=== PATIENT | male | born 1950 | race Two or more races ===

== ENCOUNTER 2020-03-22 14:55 | Outpatient (REF) | payer MEDICARE, SELFPAY ==
[2020-03-22 15:43] LABS: Hematocrit 35.9 % (42-52); Hemoglobin 11.6 g/dl (14.0-18.0); Mean Corpuscular HGB Conc 32.3 g/dl (31.0-36.0); Mean Corpuscular Hemoglobin 28.5 pg (27.0-33.0); Mean Corpuscular Volume 88.2 fL (80-98); Mean Platelet Volume 8.6 fL (9.4-12.4); Platelet Count 267 X10*3/uL (160-400); Red Blood Count 4.07 X10*6/uL (4.60-5.80); White Blood Count 5.9 X10*3/uL (4.8-10.8)
[2020-03-22 16:27] LABS: Ferritin 29 ng/mL (20-250)
== END 2020-03-22 14:56 | disposition home or self-care (01) ==
LOC: HO.LAB 14:55
PROVIDERS: PCP Internal Medicine; Visit Provider Internal Medicine Gastroenterology
DX: C16.3 Malignant neoplasm of pyloric antrum (principal)
CPT/HCPCS: 36415; 82728; 85027

== ENCOUNTER → 2020-03-27 12:51 | Outpatient (BNV) | payer MEDICARE, SELFPAY | PROVIDERS: PCP Internal Medicine; Visit Provider Internal Medicine | DX: C16.9 Malignant neoplasm of stomach, unspecified (principal); Z90.3 Acquired absence of stomach [part of] | CPT/HCPCS: 99213; 99214; G2211 ==

== ENCOUNTER → 2020-03-29 13:06 | Outpatient (BNVA) | payer MEDICARE, SELFPAY | PROVIDERS: Visit Provider Internal Medicine Gastroenterology | DX: C16.9 Malignant neoplasm of stomach, unspecified (principal); K29.70 Gastritis, unspecified, without bleeding; E53.8 Deficiency of other specified B group vitamins; D50.9 Iron deficiency anemia, unspecified | CPT/HCPCS: 99214 ==

== ENCOUNTER 2020-04-11 08:53 | Outpatient (REF) | payer MEDICARE, SELFPAY | END 2020-04-11 08:54 | disposition home or self-care (01) | LOC: HO.LAB 08:53 | PROVIDERS: Visit Provider Internal Medicine | DX: Z20.828 Contact with and (suspected) exposure to other viral communicable diseases (principal) | CPT/HCPCS: C9803; U0003 ==

== ENCOUNTER → 2020-04-19 10:53 | Outpatient (BNVA) | payer MEDICARE, SELFPAY | PROVIDERS: PCP Internal Medicine; Referring Provider Internal Medicine; Visit Provider Internal Medicine Gastroenterology | DX: Z76.89 Persons encountering health services in other specified circumstances (principal) ==

== ENCOUNTER → 2020-06-11 10:40 | Outpatient (BNVA) | payer MEDICARE, SELFPAY | PROVIDERS: PCP Internal Medicine; Visit Provider Internal Medicine Gastroenterology | DX: Z76.89 Persons encountering health services in other specified circumstances (principal) | CPT/HCPCS: Q3014 ==

== ENCOUNTER 2020-06-14 08:36 | Day surgery (SDC) | payer MEDICARE, SELFPAY ==
--- NOTE | 2020-06-12 14:46 | P.CONAN_ITS ---
Documented by User: Shelia Trevino 06/12/20 14:49 HPI - Anesthesia Eval Consult details Narrative: 69yo M for Upper Endoscopy Gastric ca s/p gastrectomy 09/2019 [facility] Past Medical History Medical History Depression Gastric adenocarcinoma Gastritis Gastrointestinal stromal tumor (GIST) (~2014) History of colon polyps History of gastrectomy Hydrocele Hypercholesterolemia Hypertension Renal calculi Vitamin B12 deficiency Family History Family History Father No problems noted. Mother History of cancer Surgical History Surgical History History of back surgery (~2016) History of colonoscopy (~07/22/19) History of esophagogastroduodenoscopy (EGD) (07/22/19) History of hernia repair Social History Social History Alcohol intake: current Alcohol intake frequency: does not drink Smoking Status: Never smoker Use of substances other than those prescribed or required for medical reasons: No Advance Directives: No Advance Directives Information Provided: Yes Meds Allergies Allergy/AdvReac Type Severity Reaction Status Date / Time No Known Allergies Allergy Verified 06/14/20 13:12 [No Known Allergies*] Home Medications Medication Instructions Recorded Confirmed Type amlodipine [Norvasc] 10 mg PO DAILY 03/27/20 06/14/20 History atorvastatin 20 mg PO BEDTIME 03/27/20 06/14/20 History calcium polycarbophil 1,250 mg PO DAILY 03/27/20 06/14/20 History cyanocobalamin (vitamin B-12) 1,000 mcg PO DAILY 03/27/20 06/14/20 History ferrous sulfate 324 mg PO BID 03/27/20 06/14/20 History Exam Exam Date and Time: June 12, 2020 163 Assessment and Plan Assessment Anesthesia Assessment: Chart Reviewed Documented by User: Shante Gonzalez 06/14/20 14:05 PMFSH Past Medical History Medical History Depression Gastric adenocarcinoma Gastritis Gastrointestinal stromal tumor (GIST) (~2014) History of colon polyps History of gastrectomy Hydrocele Hypercholesterolemia Hypertension Renal calculi Vitamin B12 deficiency Family History Family History Father No problems noted. Mother History of cancer Surgical History Surgical History History of back surgery (~2016) History of colonoscopy (~07/22/19) History of esophagogastroduodenoscopy (EGD) (07/22/19) History of hernia repair Social History Social History Alcohol intake: current Alcohol intake frequency: does not drink Smoking Status: Never smoker Use of substances other than those prescribed or required for medical reasons: No Advance Directives: No Advance Directives Information Provided: Yes Meds Allergies Allergy/AdvReac Type Severity Reaction Status Date / Time No Known Allergies Allergy Verified 06/14/20 13:12 [No Known Allergies*] Home Medications Medication Instructions Recorded Confirmed Type amlodipine [Norvasc] 10 mg PO DAILY 03/27/20 06/14/20 History atorvastatin 20 mg PO BEDTIME 03/27/20 06/14/20 History calcium polycarbophil 1,250 mg PO DAILY 03/27/20 06/14/20 History cyanocobalamin (vitamin B-12) 1,000 mcg PO DAILY 03/27/20 06/14/20 History ferrous sulfate 324 mg PO BID 03/27/20 06/14/20 History Exam Airway Mallampati Class: II TM Dist: >3cm Neck ROM: Full Assessment and Plan Assessment Anesthesia Assessment: Anesthesia Plan Discussed and Chart Reviewed Final Anesthetic Review NPO: Yes ASA Class: III Final Preanesthetic Review: No Changes in Pt Med Stat, Meds/Allgs Chart Reviewed, Consent Obtained/Reviewed and Anes Risks/Benef Reviewed Patient Risk: Intermediate Procedure Risk: Low Assessment/Block/Sedation in SS: Assess/Block/Sedation-SS Anesthetic Plan Anesthetic Plan: MAC: Disposition: Standard PACU
[2020-06-14 13:14] VITALS: BMI 28.8
[2020-06-14 13:19] VITALS: BP 154/102; PULSE 70; RESP 18; TEMP 36.8; O2SAT 97
--- NOTE | 2020-06-14 14:09 | P.BOP_ITS ---
Brief Operative Note Surgeon: Trenton Mueller MD
--- NOTE | 2020-06-14 14:09 | P.OP_ITS ---
Operative Note Operative Note Date of Service: 06/14/20 Narrative: Pre-op diagnosis: FU of Gastric cancer Post-op diagnosis: other (Gastritis, status post partial gastrectomy) Procedure: FLEXIBLE TRANSORAL UPPER GASTROINTESTINAL ENDOSCOPY WITH BIOPSY Consent: Indications for the procedure and potential complications of bleeding, perforation, reaction to medications and missed diagnosis were discussed with the patient and informed consent was obtained. Instrument: Olympus GIF H 190 mid size upper endoscope Monitoring: Vital signs and clinical assessment, continuous EKG monitoring, Pulse oximetry, Carbon Dioxide monitoring and blood pressure monitoring were done throughout the procedure. Procedure: The patient was placed in the left lateral decubitis position and pre-procedure medications were administered and a bite block was placed. The endoscope was inserted into the mouth and advanced under direct vision to the third part of duodenum. A careful inspection was made as the upper endoscope was withdrawn including a retroflexed examination of the proximal stomach; Findings and interventions are described below. Findings: Larynx: Normal Esophagus: GE junction at 38 cms. No esophagitis or Silva s. Stomach: Diffuse gastric erythema - biopsies were obtained from the gastric body. Normal appearing Gastro-jejunal anastomosis at 50 cms - biopsies were obtained. Grade 2 flap valve on retroflexed examination of the cardia Jejunum: Normal small bowel mucosa. Intervention: Biopsies as noted above Impression and Post Procedure Diagnosis: Endoscopy Findings: STOMACH: Diffuse gastric erythema - biopsies were obtained from the gastric body. Normal appearing gary en Y anastomosis at 50 cms - biopsies were obtained from the anastomosis. Grade 2 flap valve on retroflexed examination of the cardia Plan: Await pathology results Patient has an appointment on 06/21/20 in the GI Clinic with Trenton Mueller M.D.- . Above findings were reviewed with the patient. Surgeon: Trenton Mueller MD Anesthesia: MAC (Luzmaria Carbajal CRNA) Estimated blood loss (mL): 0 Pathology: other (A. Anastomosis, B. Gastric body) Condition: stable Disposition: PACU
--- NOTE | 2020-06-14 14:09 | PM.OP ---
Brief Operative Note Surgeon: Trenton Mueller MD
--- NOTE | 2020-06-14 14:09 | MHC.SHP ---
Pre-Procedural Eval Section A The patient is an INPATIENT: No Changes since office visit: Yes Patient answered all questions; No Cold of Flu in the past 2 weeks, No New Medical Problems and No Changes in Medication The History & Physical has been completed within 30 days and I have reviewed it.: Yes Section B Chief Complaint: Gastritis Allergies: Allergies Allergy/AdvReac Type Severity Reaction Status Date / Time No Known Allergies Allergy Verified 06/14/20 13:12 [No Known Allergies*] Plan I have reviewed the history and physical and performed a pertinent physical examination on my patient. No changes have occurred unless specified.
[2020-06-14 14:46] VITALS: BP 153/97; PULSE 74; RESP 14; TEMP 36.4; O2SAT 98
[2020-06-14 15:01] VITALS: BP 162/98; PULSE 68; RESP 17; TEMP 36.6; O2SAT 97
--- NOTE | 2020-06-14 15:25 | HO.POSTANES ---
Post Anesthesia Evaluation Post Anesthesia Evaluation Vital Signs: Vital Signs Temp Pulse Resp BP Pulse Ox 06/14/20 15:01 97.8 F 71 17 162/98 H 97 06/14/20 14:46 97.5 F 74 14 153/97 H 98 06/14/20 13:19 98.3 F 70 18 154/102 H 97 Anesthesia: Monitored Mental Status: Awake Pain Control: Satisfactory Nausea/Vomiting: None Hydration: Adequate Anesthesia-Related Issues: No Anes. Related Issues
== END 2020-06-14 15:26 | disposition home or self-care (01) ==
PROVIDERS: PCP Internal Medicine; Visit Provider Internal Medicine Gastroenterology
PROC: 0DJ08ZZ Inspection of Upper Intestinal Tract, Via Natural or Artificial Opening Endoscopic (ICD-10-PCS; CPT 43235; principal; 2020-06-14 14:00)
DX: K29.50 Unspecified chronic gastritis without bleeding (principal); Z85.028 Personal history of other malignant neoplasm of stomach; Z90.3 Acquired absence of stomach [part of]; Z98.0 Intestinal bypass and anastomosis status; I10 Essential (primary) hypertension; E53.8 Deficiency of other specified B group vitamins
CPT/HCPCS: 43239; 88305; 88342

== ENCOUNTER → 2020-06-21 09:54 | Outpatient (BNVA) | payer MEDICARE, SELFPAY | PROVIDERS: PCP Internal Medicine; Visit Provider Internal Medicine Gastroenterology | DX: D50.9 Iron deficiency anemia, unspecified (principal); C16.9 Malignant neoplasm of stomach, unspecified; E53.8 Deficiency of other specified B group vitamins; Z86.010 Personal history of colon polyps | CPT/HCPCS: 99212 ==

== ENCOUNTER 2020-09-19 10:16 | Outpatient (REF) | payer MEDICARE, SELFPAY | END 2020-09-19 10:17 | disposition home or self-care (01) | LOC: HO.LAB 10:16 | PROVIDERS: Visit Provider Internal Medicine | DX: Z20.822 Contact with and (suspected) exposure to COVID-19 (principal) | CPT/HCPCS: C9803; U0003; U0005 ==

== ENCOUNTER → 2021-02-14 08:07 | Outpatient (BNVA) | payer MEDICARE, SELFPAY | PROVIDERS: PCP Internal Medicine; Referring Provider Internal Medicine; Visit Provider Internal Medicine Gastroenterology | DX: K29.70 Gastritis, unspecified, without bleeding (principal); D50.9 Iron deficiency anemia, unspecified; K59.00 Constipation, unspecified; C18.9 Malignant neoplasm of colon, unspecified; E11.9 Type 2 diabetes mellitus without complications; I10 Essential (primary) hypertension; E78.00 Pure hypercholesterolemia, unspecified; E53.8 Deficiency of other specified B group vitamins; N20.0 Calculus of kidney; N43.3 Hydrocele, unspecified; Z87.891 Personal history of nicotine dependence; Z90.3 Acquired absence of stomach [part of]; Z86.010 Personal history of colon polyps; Z79.84 Long term (current) use of oral hypoglycemic drugs; Z79.899 Other long term (current) drug therapy | CPT/HCPCS: 99212 ==

== ENCOUNTER 2021-03-29 07:54 | Day surgery (SDC) | payer MEDICARE, SELFPAY ==
--- NOTE | 2021-03-28 14:41 | P.CONAN_ITS ---
Documented by User: Shelia Trevino NP 03/28/21 14:48 HPI - Anesthesia Eval Consult details Narrative: 70yo M for Upper Endoscopy Last EGD 06/2020 with MAC Gastric ca s/p gastrectomy 09/2019 [facility] Active Problems Active Problems: All Active Problems (Updated 06/21/20 @ 18:37 by Trenton Mueller MD) Iron deficiency anemia (Acute) History of colon polyps (Acute) Gastric adenocarcinoma (Acute) Gastritis (Acute) Vitamin B12 deficiency (Acute) Past Medical History Medical History Depression Diabetes Gastric adenocarcinoma Gastritis Gastrointestinal stromal tumor (GIST) (~2014) History of colon polyps History of gastrectomy Hydrocele Hypercholesterolemia Hypertension Renal calculi Vitamin B12 deficiency Family History Family History Father No problems noted. Mother History of cancer Surgical History Surgical History History of back surgery (~2016) History of colonoscopy (~07/22/19) History of esophagogastroduodenoscopy (EGD) (07/22/19) History of hernia repair Hx of endoscopy Social History Social History Household Members: Spouse Alcohol intake: current Alcohol intake frequency: does not drink Patient Tobacco Use Status: Former Tobacco user Tobacco use type: Cigarette Years Smoked: 35 Use of substances other than those prescribed or required for medical reasons: No Are you DNR?: No Advance Directives: No Advance Directives Information Provided: Yes Meds Allergies Allergy/AdvReac Type Severity Reaction Status Date / Time No Known Allergies Allergy Verified 03/25/21 15:55 [No Known Allergies*] Home Medications Medication Instructions Recorded Confirmed Last Taken Type amlodipine 10 mg tablet (Norvasc) 10 mg PO DAILY 03/27/20 03/25/21 Unknown History atorvastatin 20 mg tablet 20 mg PO BEDTIME 03/27/20 03/25/21 Unknown History calcium polycarbophil 625 mg tablet 1,250 mg PO DAILY 03/27/20 03/25/21 Unknown History cyanocobalamin (vitamin B-12) 1,000 mcg PO DAILY 03/27/20 03/25/21 Unknown History 1,000 mcg tablet ferrous sulfate 324 mg (65 mg 324 mg PO BID 03/27/20 03/25/21 Unknown History iron) tablet,delayed release lisinopril 30 mg tablet 30 mg PO DAILY 02/14/21 03/25/21 Unknown History metformin 500 mg tablet 500 mg PO 02/14/21 02/14/21 Unknown History mirtazapine 15 mg tablet 15 mg PO BEDTIME 02/14/21 03/25/21 Unknown History Exam Exam Date and Time: March 28, 2021 1441 Assessment and Plan Assessment Anesthesia Assessment: Chart Reviewed Documented by User: Leana Duarte MD 03/29/21 08:43 [facility] Past Medical History Medical History Depression Diabetes Gastric adenocarcinoma Gastritis Gastrointestinal stromal tumor (GIST) (~2014) History of colon polyps History of gastrectomy Hydrocele Hypercholesterolemia Hypertension Renal calculi Vitamin B12 deficiency Functional capacity: independent ambulation Family History Family History Father No problems noted. Mother History of cancer Family history of problems with anesthesia: No Surgical History Surgical History History of back surgery (~2016) History of colonoscopy (~07/22/19) History of esophagogastroduodenoscopy (EGD) (07/22/19) History of hernia repair Hx of endoscopy History of Problems with Anesthesia: No Social History Social History Household Members: Spouse Alcohol intake: current Alcohol intake frequency: does not drink Patient Tobacco Use Status: Former Tobacco user Tobacco use type: Cigarette Years Smoked: 35 Use of substances other than those prescribed or required for medical reasons: No Are you DNR?: No Advance Directives: No Advance Directives Information Provided: Yes Meds Allergies Allergy/AdvReac Type Severity Reaction Status Date / Time No Known Allergies Allergy Verified 03/25/21 15:55 [No Known Allergies*] Home Medications Medication Instructions Recorded Confirmed Last Taken Type amlodipine 10 mg tablet (Norvasc) 10 mg PO DAILY 03/27/20 03/25/21 Unknown History atorvastatin 20 mg tablet 20 mg PO BEDTIME 03/27/20 03/25/21 Unknown History calcium polycarbophil 625 mg tablet 1,250 mg PO DAILY 03/27/20 03/25/21 Unknown History cyanocobalamin (vitamin B-12) 1,000 mcg PO DAILY 03/27/20 03/25/21 Unknown History 1,000 mcg tablet ferrous sulfate 324 mg (65 mg 324 mg PO BID 03/27/20 03/25/21 Unknown History iron) tablet,delayed release lisinopril 30 mg tablet 30 mg PO DAILY 02/14/21 03/25/21 Unknown History metformin 500 mg tablet 500 mg PO 02/14/21 02/14/21 Unknown History mirtazapine 15 mg tablet 15 mg PO BEDTIME 02/14/21 03/25/21 Unknown History Exam Airway Mallampati Class: II TM Dist: >3cm Neck ROM: Full Heart: RRR Lungs: CTA Assessment and Plan Final Anesthetic Review Family History of Problems with Anesthesia: No History of Problems with Anesthesia: No ASA Class: III Patient Risk: Low Anesthetic Plan Anesthetic Plan: MAC:
[2021-03-29 08:16] VITALS: BMI 28.3
--- NOTE | 2021-03-29 08:22 | MHC.SHP ---
Pre-Procedural Eval Section A Date of Service: 03/29/21 Section B Chief Complaint: Iron Deficiency, Gastritis Details of Present Illness: Fu of gastric cancer, KELVIN Relevant Family History (Specify if Yes): No Relevant Social History: Tobacco Use (past smoker) Present Medications: see Short Stay Collaborative assessment Medical History: Significant History (Depression Diabetes Gastric adenocarcinoma Gastritis Gastrointestinal stromal tumor (GIST) (~2014) History of colon polyps History of gastrectomy Hydrocele Hypercholesterolemia Hypertension Renal calculi Vitamin B12 deficiency) History of Previous Operations: Relevant previous surgery/procedure and date(s) (History of back surgery (~2016) History of colonoscopy (~07/22/19) History of esophagogastroduodenoscopy (EGD) (07/22/19) History of hernia repair Hx of endoscopy) Allergies: Allergies Allergy/AdvReac Type Severity Reaction Status Date / Time No Known Allergies Allergy Verified 03/25/21 15:55 [No Known Allergies*] Review of Systems Sugical H&P ROS: Negative: Constitution, Cardiovascular and Respiratory and Yes, Specify: Gastrointestinal (Epigastric pain) Exam Surgical H&P Exam: Normal: Heart, Normal: Lungs, Normal: Extremities and Normal: Abdomen Plan Diagnosis/Plan: Unchanged I have reviewed the history and physical and performed a pertinent physical examination on my patient. No changes have occurred unless specified.
[2021-03-29 08:36] LABS: Glucose, Whole Blood 136 mg/dL (60-115)
[2021-03-29 08:43] VITALS: BP 140/81; PULSE 73; RESP 18; TEMP 36.3; O2SAT 96
[2021-03-29] MEDS: Lactated Ringers 1,000 ML 100 ML IVCONT (08:44)
--- NOTE | 2021-03-29 09:15 | W.PM.OPN ---
Operative Note Operative Note Date of Service: 03/29/21 Narrative: Pre-op diagnosis:?Follow-up of gastric cancer, iron deficiency anemia Post-op diagnosis:?other (Gastritis, gastric nodule, Sarah-en-Y gastrectomy status) Procedure:? FLEXIBLE TRANSORAL UPPER GASTROINTESTINAL ENDOSCOPY WITH BIOPSIES Consent:?Indications for the procedure and potential complications of bleeding, perforation, reaction to medications and missed diagnosis were discussed with the patient and informed consent was obtained. Instrument:?Olympus GIF H 190 mid size upper endoscope Monitoring: Vital signs and clinical assessment, continuous EKG monitoring, Pulse oximetry, Carbon Dioxide monitoring and blood pressure monitoring were done throughout the procedure. Procedure:?The patient was placed in the left lateral decubitis position and pre-procedure medications were administered and a bite block was placed. The endoscope was inserted into the mouth and advanced under direct vision to the third part of duodenum. A careful inspection was made as the upper endoscope was withdrawn including a retroflexed examination of the proximal stomach; Findings and interventions are described below. Findings: Larynx:? Normal Esophagus: Tortuous esophagus with increased tertiary contractions without stricture or ring. GE junction at 38 cms. No esophagitis or Silva s. Stomach: Diffuse gastric erythema - biopsies were obtained from the gastric body (greater and lesser curve).? Normal appearing Gastro-jejunal anastomosis at 50 cms - biopsies were obtained. A 1 cms benign appearing nodule at anastomotic site - biopsied. Grade 2 flap valve on retroflexed examination of the cardia Jejunum: Normal small bowel mucosa. Intervention:?Biopsies as noted above Impression and Post Procedure Diagnosis: Endoscopy Findings: STOMACH: Diffuse gastric erythema - biopsies were obtained from the gastric body.? Normal appearing sarah en Y anastomosis at 50 cms - biopsies were obtained from the anastomosis. A 1 cms benign appearing nodule at anastomotic site - biopsied. Plan: Await pathology results Patient has an appointment on 04/11/21 in the GI Clinic with Trenton Mueller M.D.-. Above findings were reviewed with the patient and Gastritis handouts was given in the discharge area Surgeon:?Trenton Mueller MD Anesthesia:?MAC (Dr Wolfe) Was an Chief Operator Reformer used for this Procedure?:?No Chief Operator Reformer:?Doroteo Rose Estimated blood loss (mL):?0 Pathology:?other (A.? Anastomosis, B.? Nodule anastomotic site, C.? Stomach - lesser curve, D.? Stomach - greater curve) Condition:?stable Disposition:?PACU
[2021-03-29 09:45] VITALS: BP 127/83; PULSE 78; RESP 16; TEMP 36.1; O2SAT 97
[2021-03-29 10:00] VITALS: BP 137/80; PULSE 78; RESP 16; TEMP 36.1; O2SAT 98
--- NOTE | 2021-03-29 10:07 | HO.POSTANES ---
Post Anesthesia Evaluation Post Anesthesia Evaluation Vital Signs: Vital Signs Temp Pulse Resp BP Pulse Ox 03/29/21 10:00 97.0 F 78 16 137/80 98 03/29/21 09:45 97.0 F 78 16 127/83 97 03/29/21 08:43 97.3 F 73 18 140/81 H 96 Anesthesia: Monitored Mental Status: Awake Pain Control: Satisfactory Nausea/Vomiting: None Hydration: Adequate Anesthesia-Related Issues: No Anes. Related Issues
== END 2021-03-29 10:28 | disposition home or self-care (01) ==
PROVIDERS: PCP Internal Medicine; Visit Provider Internal Medicine Gastroenterology
PROC: 0DJ08ZZ Inspection of Upper Intestinal Tract, Via Natural or Artificial Opening Endoscopic (ICD-10-PCS; CPT 43235; principal; 2021-03-29 09:10)
DX: D50.9 Iron deficiency anemia, unspecified (principal); K29.70 Gastritis, unspecified, without bleeding; K31.89 Other diseases of stomach and duodenum; K22.89 Other specified disease of esophagus; K21.9 Gastro-esophageal reflux disease without esophagitis; Z85.028 Personal history of other malignant neoplasm of stomach; Z90.3 Acquired absence of stomach [part of]; F32.9 Major depressive disorder, single episode, unspecified; E11.9 Type 2 diabetes mellitus without complications; I10 Essential (primary) hypertension; E53.8 Deficiency of other specified B group vitamins; Z79.899 Other long term (current) drug therapy; Z87.891 Personal history of nicotine dependence
CPT/HCPCS: 43239; 82947; 88305; 88342

== ENCOUNTER → 2021-04-11 13:51 | Outpatient (BNVA) | payer MEDICARE, SELFPAY | PROVIDERS: PCP Internal Medicine; Referring Provider Internal Medicine; Visit Provider Internal Medicine Gastroenterology | DX: D50.9 Iron deficiency anemia, unspecified (principal); E53.8 Deficiency of other specified B group vitamins; C16.9 Malignant neoplasm of stomach, unspecified; Z86.010 Personal history of colon polyps; Z79.899 Other long term (current) drug therapy | CPT/HCPCS: 99212 ==

== ENCOUNTER 2021-08-01 07:24 | Outpatient (REF) | payer MEDICARE, SELFPAY ==
[2021-08-01 07:48] LABS: MANUAL DIFF FLAG NO
[2021-08-01 08:24] LABS: Basophils Absolute Auto 0.1 X10*3/uL (0.0-0.2); Basophils Percent Auto 0.7 % (0-2); Eosinophils Absolute Auto 0.4 X10*3/uL (0.0-0.4); Eosinophils Percent Auto 5.6 % (0-4); Hematocrit 36.2 % (42.0-52.0); Hemoglobin 11.9 g/dl (14.0-18.0); Imm Gran Abs Auto 0.02 X10*3/uL (0.00-0.03); Imm Gran Pct Auto 0.3 % (0.0-0.4); Lymphocytes Absolute Auto 1.9 X10*3/uL (1.2-4.9); Mean Corpuscular HGB Conc 32.9 g/dl (31.0-36.0); Mean Corpuscular Volume 88.1 fL (80.0-98.0); Mean Platelet Volume 9.9 fL (9.4-12.4); Monocytes Absolute Auto 0.8 X10*3/uL (0.1-1.2); Neutrophils Absolute Auto 3.7 x10*3/uL (2.0-8.3); Neutrophils Percent Auto 53.4 % (45-73); Platelet Count 277 X10*3/uL (160-400); Red Blood Count 4.11 X10*6/uL (4.60-5.80); Red Cell Distribution Width 13.3 % (11.0-16.0); White Blood Count 6.9 X10*3/uL (4.8-10.8)
[2021-08-01 08:45] LABS: Alanine Aminotransferase 37 U/L (0-40); Albumin Level 4.3 g/dL (3.5-5.0); Alkaline Phosphatase 59 U/L (39-117); Anion Gap 13 (12-20); Aspartate Amino Transferase 46 U/L (5-37); Bilirubin Total 0.5 mg/dL (0.0-1.0); Blood Urea Nitrogen 15 mg/dL (9-16); Calcium 9.4 mg/dL (8.4-10.2); Carbon Dioxide 26 mmol/L (22-29); Chloride 106 mmol/L (96-108); Estimated Glomerular Filt Rate 58; Glucose Random 165 mg/dL (60-115); Potassium 4.5 mmol/L (3.3-5.1); Sodium 140 mmol/L (135-145); Total Protein 7.7 g/dL (6.5-8.0)
[2021-08-01 09:05] LABS: Vitamin D 25-OH Total 14.2 ng/mL (>30)
[2021-08-01 09:24] LABS: Vitamin B12 1808 pg/mL (200-900)
== END 2021-08-01 07:25 | disposition home or self-care (01) ==
LOC: HO.LAB 07:24
PROVIDERS: Visit Provider Internal Medicine Gastroenterology
DX: D50.9 Iron deficiency anemia, unspecified (principal); C16.9 Malignant neoplasm of stomach, unspecified; K29.70 Gastritis, unspecified, without bleeding; E53.8 Deficiency of other specified B group vitamins; Z86.010 Personal history of colon polyps
CPT/HCPCS: 36415; 80053; 82306; 82378; 82607; 85025; 99212

== ENCOUNTER 2021-09-02 13:08 | Outpatient (REF) | payer MEDICARE, SELFPAY ==
--- NOTE | ~2021-09-02 | CT_ITS ---
EXAMINATION: CT CHEST, ABDOMEN AND PELVIS WITH CONTRAST CLINICAL INFORMATION: Gastric cancer for surveillance. COMPARISON: CT chest 08/15/2019. CT abdomen and pelvis 07/18/2019. TECHNIQUE: 5 mm thin axial and reformatted 3 mm thin sagittal and coronal images of chest, abdomen and pelvis were obtained following IV 85 mL Omnipaque 350. DLP 470. FINDINGS: CHEST: LUNGS: The lungs are mildly emphysematous but clear of acute pneumonic process. There is no pulmonary nodule, mass or calcification. There is a punctate calcification left lung base adjacent to the hemidiaphragm.. MEDIASTINUM: The right thyroid gland is enlarged with a exophytic 2 cm nodule posteriorly. The central trachea and bronchi are widely patent. Heart size and the great vessels are normal caliber. No abnormal mediastinal or hilar lymph nodes seen. No pericardial effusion. PLEURA: There is no pleural effusion, thickening or calcification. No mass seen. AXILLA: No abnormal axillary lymph nodes. The chest wall is unremarkable. OSSEOUS STRUCTURES: No lytic or sclerotic process seen. There is mild spondylosis upper and lower dorsal spine. ABDOMEN AND PELVIS: The liver is mildly attenuated but otherwise normal size, contour with a 5 mm posterior segment right hepatic lobe hypodensity. No intrahepatic ductal dilatation seen. The gallbladder appears unremarkable. SPLEEN: Unremarkable. PANCREAS: Unremarkable. ADRENAL GLANDS: Unremarkable. KIDNEYS AND URETERS: There are symmetrical bilateral nephrograms with bilateral hypodense nonenhancing cyst. Largest cyst upper pole left kidney measuring 3.8 cm. LYMPHOVASCULAR STRUCTURES: The abdominal aorta is of normal caliber. No abnormal retroperitoneal lymph nodes or mass seen. GI TRACT: There is contrast opacified normal-appearing small bowel loops. There is scattered stool and gas seen throughout the colon without significant distention. There is no free air or free fluid. ABDOMINAL WALL: Unremarkable. PELVIS: The prostate gland is mildly enlarged with into the base of bladder. Mild extension. There is mild thickening of iterative bladder but underdistended. No free fluid. No evidence of inguinal hernia or abnormal lymphadenopathy. OSSEOUS STRUCTURES: No lytic or sclerotic process seen. There is mild ventral spondylosis. CT/CT abdomen pelvis w con IMPRESSION: Unremarkable CT chest exam except for mild emphysema. No evidence of pulmonary nodule or abnormal lymphadenopathy. Bilateral renal cysts. Mild hepatic steatosis with probable cyst in the right hepatic lobe. Moderate prostatic enlargement with extension the base of bladder. Mild bladder wall thickening.
[2021-09-02] MEDS: iohexoL 350 MG/ML 100 ML INFUS..BTL IV (15:59)
[2021-09-02] MEDS: Barium Sulfate Oral (Berry) 450 ML ORAL.SUSP 900 ML PO (15:59)
== END 2021-09-02 13:09 | disposition home or self-care (01) ==
LOC: HO.CT 13:08
PROVIDERS: Visit Provider Internal Medicine
DX: C16.9 Malignant neoplasm of stomach, unspecified (principal)
CPT/HCPCS: 71260; 74177; Q9967

== ENCOUNTER 2021-09-30 11:11 | Day surgery (SDC) | payer OTHER, SELFPAY ==
[2021-09-25 11:37] VITALS: BMI 28.3
[2021-09-30 12:49] LABS: Glucose, Whole Blood 170 mg/dL (60-115)
[2021-09-30 12:59] VITALS: BP 146/83; PULSE 73; RESP 18; TEMP 36.3; O2SAT 98
--- NOTE | 2021-09-30 13:17 | MHC.SHP ---
Pre-Procedural Eval Section A Date of Service: 09/30/21 The patient is an INPATIENT: No The History & Physical has been completed within 30 days and I have reviewed it.: No Section B Chief Complaint: FU of gastric cancer, anemia Details of Present Illness: Fu of gastric cancer, anemia Relevant Family History (Specify if Yes): No Relevant Social History: Tobacco Use (former smoker) Present Medications: see Short Stay Collaborative assessment Medical History: Significant History (Depression Diabetes Gastric adenocarcinoma Gastritis Gastrointestinal stromal tumor (GIST) (~2014) History of colon polyps History of gastrectomy Hydrocele Hypercholesterolemia Hypertension Renal calculi Vitamin B12 deficiency) History of Previous Operations: Relevant previous surgery/procedure and date(s) (History of back surgery (~2016) History of colonoscopy (~07/22/19) History of esophagogastroduodenoscopy (EGD) (07/22/19) History of hernia repair Hx of endoscopy Hx of esophagogastroduodenoscopy) Allergies: Allergies Allergy/AdvReac Type Severity Reaction Status Date / Time No Known Allergies Allergy Verified 09/30/21 13:03 [No Known Allergies*] Review of Systems Sugical H&P ROS: Negative: Constitution, Cardiovascular, Respiratory and Gastrointestinal Exam Surgical H&P Exam: Normal: Heart, Normal: Lungs, Normal: Extremities and Normal: Abdomen Plan Diagnosis/Plan: Unchanged I have reviewed the history and physical and performed a pertinent physical examination on my patient. No changes have occurred unless specified.
--- NOTE | 2021-09-30 13:21 | P.BOP_ITS ---
Brief Operative Note Date of Service: 09/30/21 Pre-op diagnosis: Anemia, Resection of GIST 2013, FU of Gastric cancer (adenocarcinoma, moderate to poorly differentiated, July 2019. 09/14/2019 exploratory laparotomy with lysis of adhesions, distal gastrectomy with omentectomy, end-to-side Gary-en-Y gastrojejunostomy). ? Post-op diagnosis: same Procedure: FLEXIBLE TRANSORAL UPPER GASTROINTESTINAL ENDOSCOPY WITH BIOPSIES Consent: Indications for the procedure and potential complications of bleeding, perforation, reaction to medications and missed diagnosis were discussed with the patient and informed consent was obtained. Instrument: Olympus GIF H 190 mid size upper endoscope Monitoring: Vital signs and clinical assessment, continuous EKG monitoring, Pulse oximetry, Carbon Dioxide monitoring and blood pressure monitoring were done throughout the procedure. Procedure: The patient was placed in the left lateral decubitis position and pre-procedure medications were administered and a bite block was placed. The endoscope was inserted into the mouth and advanced under direct vision to the third part of duodenum. A careful inspection was made as the upper endoscope was withdrawn including a retroflexed examination of the proximal stomach; Findings and interventions are described below. Findings: Larynx: Normal Esophagus: Tortuous esophagus with increased tertiary contractions without stricture or ring. GE junction at 38 cms. No esophagitis or Silva s. Stomach: Diffuse gastric erythema - biopsies were obtained from the gastric body (greater and lesser curve).? Normal appearing Gastro-jejunal anastomosis at 50 cms - biopsies were obtained. A 2 cms linear erosion in the gastric body along the greater curvature - biopsied. Grade 2 flap valve on retroflexed examination of the cardia Jejunum: Normal small bowel mucosa. Intervention:?Biopsies as noted above Impression and Post Procedure Diagnosis: Endoscopy Findings: STOMACH: Diffuse gastric erythema - biopsies were obtained from the gastric body.? Normal appearing gary en Y anastomosis at 50 cms - biopsies were obtained from the anastomosis. A 2 cms linear erosion in the gastric body along the greater curvature - biopsied. Plan: Await pathology results Patient has an appointment on 12/19/21 in the GI Clinic with Trenton Mueller M.D. Above findings were reviewed with the patient. Surgeon: Trenton Mueller MD Anesthesia: MAC (Jessica Brown CRNA) Was an Supervising Broker used for this Procedure?: Yes Supervising Broker: Argenis Almanzar Estimated blood loss (mL): 0 Pathology: other (A. bxs from anastomosis B. gastric body greater curvature bxs C. gastric body lesser curvature bxs D. gastric erosion bxs) Condition: stable Disposition: PACU
--- NOTE | 2021-09-30 13:40 | P.CONAN_ITS ---
[facility] Active Problems Active Problems: All Active Problems (Updated 08/19/21 @ 14:44 by Christa Ferrera MD) Iron deficiency anemia (Acute) History of colon polyps (Acute) Gastric adenocarcinoma (Acute) Gastritis (Acute) Vitamin B12 deficiency (Acute) Past Medical History Medical History Depression Diabetes Gastric adenocarcinoma Gastritis Gastrointestinal stromal tumor (GIST) (~2014) History of colon polyps History of gastrectomy Hydrocele Hypercholesterolemia Hypertension Renal calculi Vitamin B12 deficiency Family History Family History Father No problems noted. Mother History of cancer Family history of problems with anesthesia: No Surgical History Surgical History History of back surgery (~2016) History of colonoscopy (~07/22/19) History of esophagogastroduodenoscopy (EGD) (07/22/19) History of hernia repair Hx of endoscopy Hx of esophagogastroduodenoscopy History of Problems with Anesthesia: No Social History Social History Household Members: Spouse Alcohol intake: current Alcohol intake frequency: does not drink Patient Tobacco Use Status: Former Tobacco user Quit Date: 40 years ago Tobacco use type: Cigarette Years Smoked: 35 Use of substances other than those prescribed or required for medical reasons: No Are you DNR?: No Advance Directives: No Advance Directives Information Provided: Yes Recently lost weight without trying: No Meds Allergies Allergy/AdvReac Type Severity Reaction Status Date / Time No Known Allergies Allergy Verified 09/30/21 13:03 [No Known Allergies*] Home Medications Medication Instructions Recorded Confirmed Last Taken Type amlodipine 10 mg tablet (Norvasc) 10 mg PO DAILY 03/27/20 08/01/21 Unknown History atorvastatin 20 mg tablet 20 mg PO BEDTIME 03/27/20 08/01/21 Unknown History calcium polycarbophil 625 mg tablet 1,250 mg PO DAILY 03/27/20 08/01/21 Unknown History cyanocobalamin (vitamin B-12) 1,000 mcg PO DAILY 03/27/20 08/01/21 Unknown History 1,000 mcg tablet ferrous sulfate 324 mg (65 mg 324 mg PO BID 03/27/20 08/01/21 Unknown History iron) tablet,delayed release lisinopril 30 mg tablet 30 mg PO DAILY 02/14/21 08/01/21 Unknown History metformin 500 mg tablet 500 mg PO 02/14/21 08/01/21 Unknown History mirtazapine 15 mg tablet 15 mg PO BEDTIME 02/14/21 08/01/21 Unknown History Exam Exam Date and Time: September 30, 2021 1340 Height,Weight and Vital Signs: Height 5 ft 3 in Weight 72.575 kg Last Vital Signs Temp 97.4 F 09/30/21 12:59 Pulse 73 09/30/21 12:59 Resp 18 09/30/21 12:59 BP 146/83 H 09/30/21 12:59 Pulse Ox 98 09/30/21 12:59 Pertinent Lab Results Pertinent Lab Results: Laboratory Tests 09/30/21 12:44 POC Glucose 170 H Airway Mallampati Class: III (Edentulous upper) Neck ROM: Full Loose/Missing/Broken Teeth: Yes and Upper Heart: RRR Lungs: CTA Assessment and Plan Assessment Anesthesia Assessment: Anesthesia Plan Discussed and Chart Reviewed Final Anesthetic Review Family History of Problems with Anesthesia: No History of Problems with Anesthesia: No ASA Class: III Final Preanesthetic Review: Meds/Allgs Chart Reviewed, Consent Obtained/Reviewed and Anes Risks/Benef Reviewed Patient Risk: Intermediate Procedure Risk: Low Anesthetic Plan Anesthetic Plan: MAC: Disposition: Standard PACU
--- NOTE | 2021-09-30 13:53 | HO.ANESPROP2 ---
[facility] Active Problems Active Problems: All Active Problems (Updated 08/19/21 @ 14:44 by Christa Ferrera MD) Iron deficiency anemia (Acute) History of colon polyps (Acute) Gastric adenocarcinoma (Acute) Gastritis (Acute) Vitamin B12 deficiency (Acute) Past Medical History Medical History Depression Diabetes Gastric adenocarcinoma Gastritis Gastrointestinal stromal tumor (GIST) (~2014) History of colon polyps History of gastrectomy Hydrocele Hypercholesterolemia Hypertension Renal calculi Vitamin B12 deficiency Family History Family History Father No problems noted. Mother History of cancer Family history of problems with anesthesia: No Surgical History Surgical History History of back surgery (~2016) History of colonoscopy (~07/22/19) History of esophagogastroduodenoscopy (EGD) (07/22/19) History of hernia repair Hx of endoscopy Hx of esophagogastroduodenoscopy History of Problems with Anesthesia: No Social History Social History Household Members: Spouse Alcohol intake: current Alcohol intake frequency: does not drink Patient Tobacco Use Status: Former Tobacco user Quit Date: 40 years ago Tobacco use type: Cigarette Years Smoked: 35 Use of substances other than those prescribed or required for medical reasons: No Are you DNR?: No Advance Directives: No Advance Directives Information Provided: Yes Recently lost weight without trying: No Meds Allergies Allergy/AdvReac Type Severity Reaction Status Date / Time No Known Allergies Allergy Verified 09/30/21 13:03 [No Known Allergies*] Home Medications Medication Instructions Recorded Confirmed Last Taken Type amlodipine 10 mg tablet (Norvasc) 10 mg PO DAILY 03/27/20 08/01/21 Unknown History atorvastatin 20 mg tablet 20 mg PO BEDTIME 03/27/20 08/01/21 Unknown History calcium polycarbophil 625 mg tablet 1,250 mg PO DAILY 03/27/20 08/01/21 Unknown History cyanocobalamin (vitamin B-12) 1,000 mcg PO DAILY 03/27/20 08/01/21 Unknown History 1,000 mcg tablet ferrous sulfate 324 mg (65 mg 324 mg PO BID 03/27/20 08/01/21 Unknown History iron) tablet,delayed release lisinopril 30 mg tablet 30 mg PO DAILY 02/14/21 08/01/21 Unknown History metformin 500 mg tablet 500 mg PO 02/14/21 08/01/21 Unknown History mirtazapine 15 mg tablet 15 mg PO BEDTIME 02/14/21 08/01/21 Unknown History Exam Exam Date and Time: September 30, 2021 1354 Height,Weight and Vital Signs: Height 5 ft 3 in Weight 72.575 kg Last Vital Signs Temp 97.4 F 09/30/21 12:59 Pulse 73 09/30/21 12:59 Resp 18 09/30/21 12:59 BP 146/83 H 09/30/21 12:59 Pulse Ox 98 09/30/21 12:59 Pertinent Lab Results Pertinent Lab Results: Laboratory Tests 09/30/21 12:44 POC Glucose 170 H Airway Mallampati Class: III Assessment and Plan Final Anesthetic Review Family History of Problems with Anesthesia: No History of Problems with Anesthesia: No
--- NOTE | 2021-09-30 14:07 | P.OP_ITS ---
Operative Note Operative Note Date of Service: 09/30/21 Narrative: Pre-op diagnosis: Anemia,? Resection of GIST 2013, FU of Gastric cancer (adenocarcinoma, moderate to poorly differentiated, July 2019. 09/14/2019 exploratory laparotomy with lysis of adhesions, distal gastrectomy with omentectomy, end-to-side Gary-en-Y gastrojejunostomy). ? Post-op diagnosis:?same Procedure: FLEXIBLE TRANSORAL UPPER GASTROINTESTINAL ENDOSCOPY WITH BIOPSIES Consent:?Indications for the procedure and potential complications of bleeding, perforation, reaction to medications and missed diagnosis were discussed with the patient and informed consent was obtained. Instrument:?Olympus GIF H 190 mid size upper endoscope Monitoring: Vital signs and clinical assessment, continuous EKG monitoring, Pulse oximetry, Carbon Dioxide monitoring and blood pressure monitoring were done throughout the procedure. Procedure:?The patient was placed in the left lateral decubitis position and pre-procedure medications were administered and a bite block was placed. The endoscope was inserted into the mouth and advanced under direct vision to the third part of duodenum. A careful inspection was made as the upper endoscope was withdrawn including a retroflexed examination of the proximal stomach; Findings and interventions are described below. Findings: Larynx:? Normal Esophagus: Tortuous esophagus with increased tertiary contractions without stricture or ring. GE junction at 38 cms. No esophagitis or Silva s. Stomach: Diffuse gastric erythema - biopsies were obtained from the gastric body (greater and lesser curve).? Normal appearing Gastro-jejunal anastomosis at 50 cms - biopsies were obtained. A 2 cms linear erosion in the gastric body along the greater curvature? - biopsied. Grade 2 flap valve on retroflexed examination of the cardia Jejunum: Normal small bowel mucosa. Intervention:?Biopsies as noted above Impression and Post Procedure Diagnosis: Endoscopy Findings: STOMACH: Diffuse gastric erythema - biopsies were obtained from the gastric body.? Normal appearing gary en Y anastomosis at 50 cms - biopsies were obtained from the anastomosis. A 2 cms linear erosion in the gastric body along the greater curvature? - biopsied. Plan: Await pathology results Patient has an appointment on 12/19/21 in the GI Clinic with Trenton Mueller M.D. Above findings were reviewed with the patient. Surgeon: Trenton Mueller MD Anesthesia:?MAC (Jessica Brown CRNA) Was an Trail Construction Worker used for this Procedure?:?Yes Trail Construction Worker:?Argenis Almanzar Estimated blood loss (mL):?0 Pathology:?other (A. bxs from anastomosis? B. gastric body greater curvature bxs? C. gastric body lesser curvature bxs? D. gastric erosion bxs) Condition:?stable Disposition:?PACU
[2021-09-30 14:41] VITALS: BP 111/76; PULSE 88; RESP 15; TEMP 36.2; O2SAT 98
[2021-09-30 14:56] VITALS: BP 137/89; PULSE 75; RESP 19; TEMP 36.2; O2SAT 96
== END 2021-09-30 15:26 | disposition home or self-care (01) ==
PROVIDERS: PCP Internal Medicine; Visit Provider Internal Medicine Gastroenterology
PROC: 0DJ08ZZ Inspection of Upper Intestinal Tract, Via Natural or Artificial Opening Endoscopic (ICD-10-PCS; CPT 43235; principal; 2021-09-30 13:20)
DX: D50.9 Iron deficiency anemia, unspecified (principal); K29.70 Gastritis, unspecified, without bleeding; Z85.028 Personal history of other malignant neoplasm of stomach; Z90.3 Acquired absence of stomach [part of]; K59.00 Constipation, unspecified; I10 Essential (primary) hypertension; E53.8 Deficiency of other specified B group vitamins; E11.9 Type 2 diabetes mellitus without complications; Z79.84 Long term (current) use of oral hypoglycemic drugs; Z79.899 Other long term (current) drug therapy; Z87.442 Personal history of urinary calculi; Z87.891 Personal history of nicotine dependence
CPT/HCPCS: 43239; 82947; 88305; 88342

== ENCOUNTER → 2021-12-19 11:12 | Outpatient (BNVA) | payer OTHER, SELFPAY | PROVIDERS: PCP Internal Medicine; Referring Provider Internal Medicine; Visit Provider Internal Medicine Gastroenterology | DX: C16.9 Malignant neoplasm of stomach, unspecified (principal); D50.9 Iron deficiency anemia, unspecified; E53.8 Deficiency of other specified B group vitamins; Z86.010 Personal history of colon polyps | CPT/HCPCS: 99212 ==

== ENCOUNTER 2022-05-06 08:35 | Outpatient (REF) | payer OTHER, SELFPAY ==
--- NOTE | ~2022-05-06 | XR_ITS ---
EXAMINATION: XR LUMBOSACRAL SPINE CLINICAL INFORMATION: Lumbago with sciatica right side. COMPARISON: None. TECHNIQUE: 3 views of the lumbosacral spine. FINDINGS: There is mild straightening of THE lumbar lordosis. The vertebral heights, alignment and disc heights are normal. No aggressive lytic or sclerotic process seen. There is mild ventral spondylosis lumbar spine. The paravertebral soft tissues are normal. There is a 4 mm calculus and a 2 mm radiopaque calculus lower pole right kidney. No additional radiopaque calculi seen. There is no hydronephrosis. XR/XR lumbar spine 2-3V IMPRESSION: 1. Mild ventral spondylosis lumbar spine. No visible acute fracture, dislocation or lytic process seen. 2. Suspect 2 small radiopaque calculi lower pole right kidney.
== END 2022-05-06 08:36 | disposition home or self-care (01) ==
LOC: HO.XRAY 08:35
PROVIDERS: Visit Provider Emergency Medicine
DX: M54.41 Lumbago with sciatica, right side (principal)
CPT/HCPCS: 72100

== ENCOUNTER → 2022-05-29 13:47 | Outpatient (BNVA) | payer OTHER, SELFPAY | PROVIDERS: PCP Internal Medicine; Referring Provider Internal Medicine; Visit Provider Internal Medicine Gastroenterology | DX: K29.70 Gastritis, unspecified, without bleeding (principal); D50.9 Iron deficiency anemia, unspecified; C16.9 Malignant neoplasm of stomach, unspecified; E53.8 Deficiency of other specified B group vitamins; Z86.010 Personal history of colon polyps | CPT/HCPCS: 99212 ==

== ENCOUNTER 2022-10-24 07:59 | Day surgery (SDC) | payer OTHER, SELFPAY ==
[2022-10-22 15:09] VITALS: BMI 28.9
--- NOTE | 2022-10-23 10:12 | P.CONAN_ITS ---
Documented by User: Shelia Trevino NP 10/23/22 10:13 HPI - Anesthesia Eval Consult details Narrative: 72yo M for Upper Endoscopy and Colonoscopy Gastric CA s/p gastrectomy 2019 [facility] Active Problems Active Problems: All Active Problems (Updated 05/29/22 @ 15:14 by Trenton Mueller MD) Iron deficiency anemia (Acute) History of colon polyps (Acute) Gastric adenocarcinoma (Acute) Gastritis (Acute) Vitamin B12 deficiency (Acute) Past Medical History Medical History Depression Diabetes Gastric adenocarcinoma Gastritis Gastrointestinal stromal tumor (GIST) (~2014) History of colon polyps History of gastrectomy Hydrocele Hypercholesterolemia Hypertension Renal calculi Vitamin B12 deficiency Family History Family History Father No problems noted. Mother History of cancer Family history of problems with anesthesia: No Surgical History Surgical History History of back surgery (~2016) History of colonoscopy (~07/22/19) History of esophagogastroduodenoscopy (EGD) (07/22/19) History of hernia repair Hx of endoscopy Hx of esophagogastroduodenoscopy Hx of resection of stomach History of Problems with Anesthesia: No Social History Social History Household Members: Spouse Housing: House Alcohol intake: current Alcohol intake frequency: does not drink Patient Tobacco Use Status: Former Tobacco user Quit Date: 40 years ago Tobacco use type: Cigarette Years Smoked: 35 Advance Directives: No Advance Directives Information Provided: Yes service: No Current occupational status: retired Meds Allergies Allergy/AdvReac Type Severity Reaction Status Date / Time No Known Allergies Allergy Verified 10/24/22 08:22 [No Known Allergies*] Home Medications Medication Instructions Recorded Confirmed Last Taken Type amlodipine 10 mg tablet (Norvasc) 10 mg PO DAILY 03/27/20 10/22/22 Unknown History atorvastatin 20 mg tablet 20 mg PO BEDTIME 03/27/20 10/22/22 Unknown History calcium polycarbophil 625 mg tablet 1,250 mg PO DAILY 03/27/20 10/22/22 Unknown History cyanocobalamin (vitamin B-12) 1,000 mcg PO DAILY 03/27/20 10/22/22 Unknown History 1,000 mcg tablet ferrous sulfate 324 mg (65 mg 324 mg PO BID 03/27/20 05/29/22 Unknown History iron) tablet,delayed release lisinopril 30 mg tablet 30 mg PO DAILY 02/14/21 10/22/22 Unknown History metformin 500 mg tablet 500 mg PO BID 02/14/21 10/22/22 Unknown History mirtazapine 15 mg tablet 15 mg PO BEDTIME 02/14/21 10/22/22 Unknown History acetaminophen 500 mg tablet 1,000 mg PO Q6H PRN Pain 05/29/22 10/22/22 Unknown History carvedilol 12.5 mg tablet 12.5 mg PO BID 05/29/22 10/22/22 Unknown History hydrochlorothiazide 25 mg tablet 25 mg PO DAILY 05/29/22 10/22/22 Unknown History lidocaine 5 % topical patch 1 patch topical DAILY 05/29/22 10/22/22 Unknown History prednisone 20 mg tablet 20 mg PO DAILY 05/29/22 05/29/22 Unknown History Exam Exam Date and Time: October 23, 2022 1012 Height,Weight and Vital Signs: Height 5 ft 3 in Weight 73.936 kg Assessment and Plan Assessment Anesthesia Assessment: Chart Reviewed Final Anesthetic Review Family History of Problems with Anesthesia: No History of Problems with Anesthesia: No Documented by User: Adrian Duarte MD 10/24/22 08:38 [facility] Past Medical History Medical History Depression Diabetes Gastric adenocarcinoma Gastritis Gastrointestinal stromal tumor (GIST) (~2014) History of colon polyps History of gastrectomy Hydrocele Hypercholesterolemia Hypertension Renal calculi Vitamin B12 deficiency Family History Family History Father No problems noted. Mother History of cancer Surgical History Surgical History History of back surgery (~2016) History of colonoscopy (~07/22/19) History of esophagogastroduodenoscopy (EGD) (07/22/19) History of hernia repair Hx of endoscopy Hx of esophagogastroduodenoscopy Hx of resection of stomach Social History Social History Household Members: Spouse Housing: House Alcohol intake: current Alcohol intake frequency: does not drink Patient Tobacco Use Status: Former Tobacco user Quit Date: 40 years ago Tobacco use type: Cigarette Years Smoked: 35 Advance Directives: No Advance Directives Information Provided: Yes service: No Current occupational status: retired [employer] Allergies Allergy/AdvReac Type Severity Reaction Status Date / Time No Known Allergies Allergy Verified 10/24/22 08:22 [No Known Allergies*] Home Medications Medication Instructions Recorded Confirmed Last Taken Type amlodipine 10 mg tablet (Norvasc) 10 mg PO DAILY 03/27/20 10/22/22 Unknown History atorvastatin 20 mg tablet 20 mg PO BEDTIME 03/27/20 10/22/22 Unknown History calcium polycarbophil 625 mg tablet 1,250 mg PO DAILY 03/27/20 10/22/22 Unknown History cyanocobalamin (vitamin B-12) 1,000 mcg PO DAILY 03/27/20 10/22/22 Unknown History 1,000 mcg tablet ferrous sulfate 324 mg (65 mg 324 mg PO BID 03/27/20 05/29/22 Unknown History iron) tablet,delayed release lisinopril 30 mg tablet 30 mg PO DAILY 02/14/21 10/22/22 Unknown History metformin 500 mg tablet 500 mg PO BID 02/14/21 10/22/22 Unknown History mirtazapine 15 mg tablet 15 mg PO BEDTIME 02/14/21 10/22/22 Unknown History acetaminophen 500 mg tablet 1,000 mg PO Q6H PRN Pain 05/29/22 10/22/22 Unknown History carvedilol 12.5 mg tablet 12.5 mg PO BID 05/29/22 10/22/22 Unknown History hydrochlorothiazide 25 mg tablet 25 mg PO DAILY 05/29/22 10/22/22 Unknown History lidocaine 5 % topical patch 1 patch topical DAILY 05/29/22 10/22/22 Unknown History prednisone 20 mg tablet 20 mg PO DAILY 05/29/22 05/29/22 Unknown History Exam Airway Mallampati Class: III TM Dist: >3cm Neck ROM: Full Loose/Missing/Broken Teeth: Yes and Upper Assessment and Plan Assessment Anesthesia Assessment: Anesthesia Plan Discussed Final Anesthetic Review NPO: Yes ASA Class: III Final Preanesthetic Review: No Changes in Pt Med Stat, Meds/Allgs Chart Reviewed, Consent Obtained/Reviewed and Anes Risks/Benef Reviewed Patient Risk: Intermediate Procedure Risk: Low Anesthetic Plan Anesthetic Plan: MAC: Disposition: Standard PACU
[2022-10-24] MEDS: Lactated Ringers 1,000 ML 100 ML IVCONT (08:48)
[2022-10-24 08:54] VITALS: BP 151/84; PULSE 70; RESP 18; TEMP 36.7; O2SAT 99
--- NOTE | 2022-10-24 09:04 | HO.POSTANES ---
Post Anesthesia Evaluation Post Anesthesia Evaluation Vital Signs: Vital Signs Temp Pulse Resp BP Pulse Ox O2 Del Method 10/24/22 08:54 98.1 F 70 18 151/84 H 99 Room Air Anesthesia: General Endotracheal-GETA Mental Status: Awake Pain Control: Satisfactory Nausea/Vomiting: None Hydration: Adequate Anesthesia-Related Issues: No Anes. Related Issues
[2022-10-24 09:14] LABS: Glucose, Whole Blood 146 mg/dL (60-115)
--- NOTE | 2022-10-24 10:13 | MHC.SHP ---
Pre-Procedural Eval Section A Date of Service: 10/24/22 The patient is an INPATIENT: No The History & Physical has been completed within 30 days and I have reviewed it.: No Section B Chief Complaint: screening, fu polyps, fu gastric adenoca Relevant Family History (Specify if Yes): No Relevant Social History: Tobacco Use (Former smoker) Present Medications: see Short Stay Collaborative assessment Medical History: Significant History (Diabetes Gastric adenocarcinoma Gastritis Gastrointestinal stromal tumor (GIST) (~2014) History of colon polyps History of gastrectomy Hydrocele Hypercholesterolemia Hypertension Renal calculi Vitamin B12 deficiency) History of Previous Operations: Relevant previous surgery/procedure and date(s) (History of colonoscopy (~07/22/19) History of esophagogastroduodenoscopy (EGD) (07/22/19) History of hernia repair Hx of endoscopy Hx of esophagogastroduodenoscopy) Allergies: Allergies Allergy/AdvReac Type Severity Reaction Status Date / Time No Known Allergies Allergy Verified 10/24/22 08:22 [No Known Allergies*] Review of Systems Sugical H&P ROS: Negative: Constitution, Cardiovascular, Respiratory and Gastrointestinal Exam Surgical H&P Exam: Normal: Heart, Normal: Lungs, Normal: Extremities and Normal: Abdomen Plan Diagnosis/Plan: Unchanged I have reviewed the history and physical and performed a pertinent physical examination on my patient. No changes have occurred unless specified. Time Spent With Patient Time: Total time managing care of this patient today ____ minutes.
--- NOTE | 2022-10-24 10:33 | W.PM.OPN ---
Operative Note Operative Note Date of Service: 10/24/22 Narrative: FLEXIBLE TRANSORAL UPPER GASTROINTESTINAL ENDOSCOPY WITH BIOPSIES AND COLONOSCOPY TILL DESCENDING COLON Pre-op diagnosis: Screening, FU colon polyps, FU gastric cancer Post-op diagnosis: Gastritis, partial gastrectomy with Sarha en-Y Gastro-J anatomy, poor colon prep. Endoscopist:? Trenton Mueller MD Anesthesia:?MAC UPPER ENDOSCOPY Consent: Indications for the procedure and potential complications of bleeding, perforation, reaction to medications and missed diagnosis were discussed with the patient and informed consent was obtained. Instrument: Olympus GIF H 190 mid size upper endoscope Monitoring: Vital signs and clinical assessment, continuous EKG monitoring, Pulse oximetry, Carbon Dioxide monitoring and blood pressure monitoring were done throughout the procedure. Procedure: The patient was placed in the left lateral decubitis position and pre-procedure medications were administered and a bite block was placed. The endoscope was inserted into the mouth and advanced under direct vision to the third part of duodenum. A careful inspection was made using white light and NBI as the upper endoscope was withdrawn including a retroflexed examination of the proximal stomach; Findings and interventions are described below. Findings: Larynx: Edema of arytenoid cartilages Esophagus: Tortuous esophagus with increased tertiary contractions without stricture or ring. GE junction at 38 cms. No esophagitis or Silva s. Stomach: Diffuse gastric erythema - biopsies were obtained from the gastric body (greater and lesser curve).? Normal appearing Gastro-jejunal anastomosis at 50 cms - biopsies were obtained. Grade 2 flap valve on retroflexed examination of the cardia Jejunum: Normal small bowel mucosa. Intervention:?Biopsies as noted above COLONOSCOPY PROCEDURE NOTE Consent: Indications for the procedure and potential complications of bleeding, perforation, reaction to medications and missed diagnosis were discussed with the patient and informed consent was obtained. Instrument: Olympus PCF H 190 L variable stiffness pediatric colonoscope Monitoring: Vital signs and clinical assessment, intermittent blood pressure monitoring, continuous EKG monitoring, Pulse oximetry and Carbon Dioxide monitoring were done throughout the procedure. Procedure: The patient was placed in the left lateral decubitis position and pre-procedure medications were administered. After a digital rectal examination of the ano-rectum, the video colonoscope was inserted into the rectum and advanced through the colon to the 70 cm into the descending colon. Was not possible to advanced further due to poor prep with solid and semi-solid stools in the transverse colon. The colonoscope was withdrawn and procedure was abandoned. Procedure Difficulty: : Procedure discontinued due to poor prep Findings: Descending Colon: Partially evaluated due to sub-optimal prep Sigmoid Colon: Partially evaluated due to sub-optimal prep Rectum: Partially evaluated due to sub-optimal prep Colon preparation: poor Impression and Post Procedure Diagnosis: Endoscopy Findings: STOMACH: Diffuse gastric erythema - biopsies were obtained from the gastric body.? Normal appearing sarah en Y anastomosis at 50 cms - biopsies were obtained from the anastomosis. Colonoscopy Findings: Procedure was discontinued due to poor prep Plan: Await pathology results Patient has an appointment on 11/27/22 in the GI Clinic with Trenton Mueller M.D. Pt will be rescheduled for Colonoscopy after re-discussing the prep with the pt
[2022-10-24 11:21] VITALS: BP 105/62; PULSE 96; RESP 16; TEMP 36.8; O2SAT 97
[2022-10-24 11:36] VITALS: BP 122/77; PULSE 76; RESP 14; O2SAT 96
[2022-10-24 11:51] VITALS: BP 142/87; PULSE 77; RESP 15; TEMP 36.6; O2SAT 98
== END 2022-10-24 12:15 | disposition home or self-care (01) ==
PROVIDERS: PCP Internal Medicine; Visit Provider Internal Medicine Gastroenterology
PROC: (CPT 45330; principal; 2022-10-24 10:30)
DX: Z12.11 Encounter for screening for malignant neoplasm of colon (principal); Z86.010 Personal history of colon polyps; K22.2 Esophageal obstruction; D50.9 Iron deficiency anemia, unspecified; C16.9 Malignant neoplasm of stomach, unspecified; Z90.3 Acquired absence of stomach [part of]; K29.70 Gastritis, unspecified, without bleeding; Z98.0 Intestinal bypass and anastomosis status; E53.8 Deficiency of other specified B group vitamins; I10 Essential (primary) hypertension; E78.00 Pure hypercholesterolemia, unspecified; E11.9 Type 2 diabetes mellitus without complications; Z79.84 Long term (current) use of oral hypoglycemic drugs; Z79.899 Other long term (current) drug therapy; Z98.890 Other specified postprocedural states; Z87.442 Personal history of urinary calculi; Z87.891 Personal history of nicotine dependence
CPT/HCPCS: 45330; 43239; 82947; 88305; 88342; J2250

== ENCOUNTER 2022-11-27 12:53 | Outpatient (AMB) | payer OTHER, SELFPAY ==
--- NOTE | 2022-11-27 12:57 | A.OFFVIS_ITS ---
Intake Vital Signs 11/27/22 13:06 Height 5 ft 3 in Weight 174 lb 2.643 oz BMI 30.8 BP 91/43 L Blood Pressure Location Lt brachial Position Sitting Pulse 67 Intake Visit Reasons: 6 month FU Intake Note: Frantz presents in the office as a 6 month follow up. CC: Pains in the stomach - all over. Product Development Actuary Required: Yes Product Development Actuary Name: [id number] Allergies No Known Allergies [No Known Allergies*] Allergy (Verified 11/27/22 13:08) Medication List - Last Reconciled 11/27/22 by Trenton Mueller MD amlodipine (Norvasc) 10 mg PO DAILY atorvastatin 20 mg PO BEDTIME calcium polycarbophil 1,250 mg PO DAILY carvedilol 12.5 mg PO BID cholecalciferol (vitamin D3) 250 mcg PO 2XW 90 days cyanocobalamin (vitamin B-12) 1,000 mcg PO DAILY dulaglutide (Trulicity) mg subcut QWEEK ferrous sulfate 325 mg PO BID hydrochlorothiazide 25 mg PO DAILY lidocaine 5% 1 patch topical DAILY lisinopril 30 mg PO DAILY metformin 500 mg PO BID mirtazapine 15 mg PO BEDTIME pantoprazole 40 mg PO BID 2 months prednisone 20 mg PO DAILY sennosides (senna) 8.6 mg PO BEDTIME 30 days HPI 6 month FU HPI Details GI Clinic visit for this 71 year old Arabic-speaking male followed in GI for Gastric adenoca (diagnosed in 07/[address] Ferrera in Oncology), 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 06/28/19 2/3 stool occult blood were positive. ? IMAGING STUDIES: 07/18/[address] scan showed mild constipation and no acute intra-abdominal process. Bilateral renal cysts without echogenic stones or hydronephrosis. ?ENDOSCOPIC STUDIES: 10/24/22 EGD AND COLON SHOWED: Endoscopy Findings: STOMACH: Diffuse gastric erythema - biopsies were obtained from the gastric body.? Normal appearing gary en Y anastomosis at 50 cms - biopsies were obtained from the anastomosis. Colonoscopy Findings: Procedure was discontinued due to poor prep Plan: Pt will be rescheduled for Colonoscopy after re-discussing the prep with the pt 09/30/21 EGD SHOWED: STOMACH: Diffuse gastric erythema - biopsies were obtained from the gastric body.? Normal appearing gary en Y anastomosis at 50 cms - biopsies were obtained from the anastomosis. A 2 cms linear erosion in the gastric body along the greater curvature? - biopsied. BIOPSIES SHOWED: A.? Stomach, anastomosis, biopsy:? Mixed gastric and small intestinal mucosa with chronic active inflammation; no Helicobacter organisms identified. B.? Stomach, body greater curvature, biopsy:? Oxyntic mucosa with moderate chronic inactive inflammation; no Helicobacter organisms seen. C.? Stomach, body lesser curvature, biopsy:? Oxyntic mucosa with moderate chronic inactive inflammation; no Helicobacter organisms seen. D.? Stomach, erosion, biopsy:? Oxyntic mucosa with mild chronic, focally active, inflammation; no Helicobacter organisms seen. COMMENT: No malignancy is identified. 07/2019 EGD AND COLON SHOWED: ? STOMACH: Gastritis and a 2 cms pre-pyloric ulcer ? Colonoscopy Two medium-sized adenomatous polyps (one was 10 mm in size) were removed and large hemorrhoids were detected on retroflexed exam. ? Iron def anemia likely related to gastric ulcer - biopsies obtained to rule out recurrent GIST. ? Repeat Colonoscopy interval based on path results - in 3-5 years if polyps are adenomatous and 10 years if polyps are hyperplastic. ? BIOPSIES SHOWED: ? A. Small bowel, biopsy: Duodenal mucosa within normal limits. ? B. Stomach, ulcer, biopsy: Adenocarcinoma, moderate-poorly differentiated. ? C. Stomach, antrum, biopsy: Antral-type mucosa with moderate chronic inactive inflammation and intestinal metaplasia; no dysplasia seen; no Helicobacter organisms seen. ? D. Colon, transverse, polypectomy: Fragments of tubular adenoma; no high grade dysplasia or carcinoma seen. ? E. Colon, sigmoid, polypectomy: Fragments of tubular adenoma; no high grade dysplasia or carcinoma seen. ? F. Rectum, polypectomy: Hyperplastic mucosal polyp. ? COMMENT: HER2 immunostain is being performed on the gastric adenocarcinoma; results will be addended. ? TODAY'S VISIT ? 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 Pain is 8/10 in inetnsity and feels like pressure. Can have pain with eating and while lying down. Denies recent constipation or diarrhea. Denies wt loss PAST VISIT: Appetite is normal Continues to have hoarseness EGD and biopsy results reviewed with the pt. 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 Denies cough , sore throat or SOB. Denies heartburn, dysphagia or abdominal pain Taking medications for constipation and has a BMs are variable. Denies constipation ? ? Complains of constipation related to oral iron. On some days he feels bloated and unable to eat any more after he takes a tablespoonful of rice. Denies heartburn or dysphagia. Takes stool softeners prn for constipation which are helpful? ? ? EGD results reviewed. ?Finished XRT and declined additional chemo. ?? ? I am doing good . ? Appetite is good and weight is stable between 142 & 149 lbs. ? ? ? Denies abdominal pain or constipation. ? At the last GI visit he reported his constipation has resolved and straining with stools has improved with taking fiber twice daily, patient states that he has normal bowel movements daily and had no issues at that time [facility] Medical History Depression Diabetes Gastric adenocarcinoma Gastritis Gastrointestinal stromal tumor (GIST) (~2014) History of colon polyps History of gastrectomy Hydrocele Hypercholesterolemia Hypertension Renal calculi Vitamin B12 deficiency Surgical History History of back surgery (~2017) History of colonoscopy (~07/22/19) History of esophagogastroduodenoscopy (EGD) (07/22/19) History of hernia repair Hx of endoscopy Hx of esophagogastroduodenoscopy Hx of resection of stomach Family History Father No problems noted. Mother History of cancer Social History Household Members: Spouse Housing: House Alcohol intake: former Patient Tobacco Use Status: Former Tobacco user Quit Date: 40 years ago Tobacco use type: Cigarette Years Smoked: 35 Smoked in Last 30 Days: No Use of substances other than those prescribed or required for medical reasons: No Advance Directives: No Advance Directives Information Provided: No service: No Current occupational status: retired Review of Systems Const All systems reviewed & are unremarkable except as noted in HPI and below Physical Exam Vital Signs: Last Vital Signs Pulse 67 11/27/22 13:06 BP 91/43 L 11/27/22 13:06 BMI result Body Mass Index 30.8 Const General: healthy appearing and no acute distress Nutritional Appearance: obese Orientation/consciousness: patient oriented x3 Limitations: language barrier HEENT Head: Yes normal to inspection Ears: hearing grossly normal bilaterally Eyes Sclerae: sclerae normal Pupils: Equal, round and reactive pupils present Neck Neck: Yes normal visual inspection Chest Chest palpation & inspection: normal inspection of the chest Resp Effort & Inspection: normal respiratory effort Auscultation: clear to auscultation bilaterally Cardio Palpation: normal PMI Rate: regular rate Rhythm: regular rhythm Heart sounds: S1 normal heart sound present, S2 normal heart sound present and no murmurs GI Palpation (GI): Soft to palpation, nontender and No hepatosplenomegaly present Auscultation: normal bowel sounds Rectal Exam - Male: Yes deferred Skin General skin exam: no rashes or lesions noted Neuro General: patient oriented x3, gait normal and moves all extremities Cranial nerves: Yes Equal, round and reactive pupils present Psych Appearance: grossly normal Mental Status: mental status grossly normal Assessment & Plan Assessment & Plan (1) Iron deficiency anemia: Code(s): D50.9 - Iron deficiency anemia, unspecified (2) History of colon polyps: Comment: 07/28 Two medium sized adenomatous polyps were removed during colonoscopy. Repeat colonoscopy is advised in 3 years (due in 07/2022). Code(s): Z86.010 - Personal history of colonic polyps (3) Gastric adenocarcinoma: Comment: Repeat EGD in 1 yr - due 09/2022 Code(s): C16.9 - Malignant neoplasm of stomach, unspecified (4) Gastritis: Code(s): K29.70 - Gastritis, unspecified, without bleeding (5) Vitamin B12 deficiency: Code(s): E53.8 - Deficiency of other specified B group vitamins Plan 72 YM with diabetes, hypertension, hypercholesterolemia, vitamin B12 deficiency, right renal calculi, hydrocele, history of GIST (status post removal in 2015) hospitalized in the past with worsening anemia. 07/22/19 Upper endoscopy showed a 2 cm pre-pyloric ulcer with narrowing of pylorus - adenocarcinoma on biopsies. ?Staging workup included PET-CT performed 09/01/2019 showed no evidence of metastatic disease. Focal SUV max of 3.9 noted along proximal duodenum without underlying CT abnormality. ? On 09/14/2019 he underwent exploratory laparotomy with lysis of adhesions, distal gastrectomy with omentectomy, end-to-side Gary-en-Y gastrojejunostomy. Pathology: Invasive adenocarcinoma, diffuse type, poorly differentiated with signet ring features. Tumor site in antrum/lesser curvature, size 1.6 x 1.1 x 0.5 cm, grade 3, tumor invades the muscularis propria. All margins negative for invasive carcinoma. Thirteen regional lymph nodes examined, 3 positive, lymphovascular invasion present, extensive. Perineural invasion present. Final pathological stage pT2 pN2. Stage II. HER2 IHC 2+, negative by FISH amplification ?Genetic screening for inherited cancer syndromes was negative for any germ line mutations. ? He started postoperative chemo/radiation (bolus and infusional 5 FU/leucovorin) therapy on 10/26/2019. Two cycles of chemotherapy initially followed by concurrent chemo RT and 4 additional cycles of chemotherapy planned. He did not tolerate chemotherapy with radiation and declined post radiation chemotherapy.? He has agreed to be monitored with physical examination, blood work and imaging as deemed necessary. 10/2021 EGD showed normal appearing gary en Y anastomosis at 50 cms - biopsies obtained from the anastomosis were negative for malignancy and H pylori. Pt was advised to increase pantoprazole to 40 mg twice daily. 10/2022 EGD (FU of Gastric cancer) and same day colonoscopy (FU of colon polyps) were performed in results as noted above 11/27/22 PT complains of lower abdominal pain and advised to schedule an Abd- Pelvic CT scan. Colonoscopy will be rescheduled - Dulcolax 10 mg daily starting 5 days before colonoscopy. Miralax prep the day before followed by Mag Citrate am of procedure Follow-up in 6 months Orders: Orders CT abdomen pelvis w IV con 11/27/22 C16.9 - Malignant neoplasm of stomach, unspecified Medications: New bisacodyl (Dulcolax (bisacodyl)) Take 2 tablets at 12 pm the day before colonoscopy 10 mg (2 x 5 mg) PO ONCE 10 tabs 0RF colon prep 5 days polyethylene glycol 3350 (Miralax) Mix Miralax with 64 oz(8 cups) of Crystal light. Take 2 tablets of Dulcolax qt 12 pm. Wait to have your 1st bowel movement, then begin drinking Miralax. Drink a glass of Miralax every 10-15 minutes until you are finished. You will drink at least another 4 cups of clear liquid of your choice over the next 2 hours. Please drink as many clear liquids as possible You may have clear liquids up to four hours before your procedure 17 grams PO DAILY 238 grams 0RF colon prep 1 day Coding Level of Care Code Est Pt Level 4 (79582) Diagnoses Iron deficiency anemia D50.9 History of colon polyps Z86.010 Gastric adenocarcinoma C16.9 Gastritis K29.70 Vitamin B12 deficiency E53.8 Time Spent (min) 24
[2022-11-27 13:06] VITALS: BP 91/43; PULSE 67; BMI 30.8
== END 2022-11-27 14:00 | disposition home or self-care (01) ==
PROVIDERS: Visit Provider Internal Medicine Gastroenterology
DX: D50.9 Iron deficiency anemia, unspecified (principal); Z86.010 Personal history of colon polyps; C16.9 Malignant neoplasm of stomach, unspecified; K29.70 Gastritis, unspecified, without bleeding; E53.8 Deficiency of other specified B group vitamins
CPT/HCPCS: 99214

== ENCOUNTER → 2022-11-27 12:53 | Outpatient (BNVA) | payer OTHER, SELFPAY | PROVIDERS: Visit Provider Internal Medicine Gastroenterology | DX: D50.9 Iron deficiency anemia, unspecified (principal); C16.9 Malignant neoplasm of stomach, unspecified; K29.70 Gastritis, unspecified, without bleeding; E53.8 Deficiency of other specified B group vitamins; Z86.010 Personal history of colon polyps | CPT/HCPCS: 99212 ==

== ENCOUNTER 2022-12-16 | Outpatient (REF) | payer OTHER, SELFPAY | END 2022-12-16 00:01 | disposition home or self-care (01) | LOC: HO.LNP | PROVIDERS: Visit Provider Emergency Medicine | DX: Z20.822 Contact with and (suspected) exposure to COVID-19 (principal); J06.9 Acute upper respiratory infection, unspecified | CPT/HCPCS: 87636 ==

== ENCOUNTER 2022-12-30 20:05 | Emergency (ER) | payer OTHER, SELFPAY ==
--- NOTE | ~2022-12-30 | CT_ITS ---
EXAMINATION: CT ABDOMEN AND PELVIS WITHOUT CONTRAST CLINICAL INFORMATION: Diffuse abdominal pain with nausea and history of gastric CA COMPARISON: CT chest abdomen pelvis 09/02/2021 TECHNIQUE: Multidetector volumetric imaging was performed from the superior aspect of the liver through the pubic symphysis. Sagittal and coronal reformatted images were obtained on the technologist's workstation. This CT examination was performed using dose optimization techniques as appropriate, variously including the following: *Automated exposure control *Adjustment of mA and/or kV according to patient size (this includes techniques or standardized protocols for targeted exams where dose is matched to indication/reason for exam; i.e. extremities or head) *Use of iterative reconstruction technique DLP: 554 mGy-cm FINDINGS: LUNG BASES: The visualized lung bases are unremarkable. LIVER, GALLBLADDER, AND BILIARY TREE: The liver is enlarged measuring 18.2 cm in greatest length. Attenuation is decreased consistent with hepatic steatosis. Previously seen 6 mm benign cyst in the posterior right lobe is again seen measuring water density. No worrisome solid focal hepatic lesion or biliary ductal dilatation is present. The gallbladder is unremarkable with no evidence of radiopaque gallstones, gallbladder wall thickening, or obvious pericholecystic inflammatory changes. PANCREAS: Unremarkable. SPLEEN: Unremarkable. ADRENAL GLANDS: Unremarkable. KIDNEYS AND URETERS: The kidneys are normal in size, shape, and attenuation. There is bilateral nephrolithiasis present, right greater than left. The largest stone on the right is about 5 mm at the lower pole and measures about 500 Hounsfield units and is 11 cm from the posterior axillary line. No hydronephrosis, hydroureter, or calculi seen. No perinephric stranding. Benign bilateral upper pole 3.0 cm Bosniak class I renal cysts are noted which requires no additional imaging or follow up. No solid renal masses are seen. A few smaller renal cysts are present. BLADDER: Unremarkable. GASTROINTESTINAL TRACT: A tiny hiatal hernia is present. There is been a partial gastrectomy with gastrojejunal anastomosis. The duodenal blind loop is present. There is no evidence of bowel obstruction. The appendix is normal ABDOMINAL WALL: No significant hernia is appreciated. LYMPH NODES: No retroperitoneal lymphadenopathy. VASCULAR: Calcific atherosclerotic change is seen without aneurysms. PELVIC VISCERA: There is mild BPH. Seminal vesicles appear normal. OSSEOUS STRUCTURES: Unremarkable. Some mild degenerative changes are present in the spine. CT/CT abdomen pelvis wo IV con IMPRESSION: 1. A cause for the patient's abdominal pain and nausea has not been found. 2. Incidental note made of an enlarged fatty liver, stable benign hepatic cysts, bilateral nonobstructing nephrolithiasis, prior partial gastrectomy with gastrojejunal anastomosis, mild BPH and degenerative changes in the spine. Fleischner guidelines were followed.
[2022-12-30 20:14] VITALS: BP 136/76; BP 138/70; PULSE 116; PULSE 132; RESP 20; TEMP 37.4; O2SAT 94; O2SAT 96; BMI 30.6
--- NOTE | 2022-12-30 20:14 | ED.ABDPAIN ---
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 Admits had an appointment with oncology today however was canceled head and had outpatient labs, was instructed to come to the ED due to hyperglycemia, hyponatremia and RAKESH. Reports mild decreased p.o. intake. Denies fever, chills, diarrhea/constipation, dysuria/hematuria MD elicited complaint: abdominal pain Related Data Home Medications Medication Instructions Recorded Confirmed amlodipine 10 mg tablet (Norvasc) 10 mg PO DAILY 03/27/20 12/30/22 atorvastatin 20 mg tablet 20 mg PO BEDTIME 03/27/20 12/30/22 calcium polycarbophil 625 mg tablet 1,250 mg PO DAILY 03/27/20 12/30/22 cyanocobalamin (vitamin B-12) 1,000 mcg PO DAILY 03/27/20 12/30/22 1,000 mcg tablet lisinopril 30 mg tablet 30 mg PO DAILY 02/14/21 12/30/22 metformin 500 mg tablet 500 mg PO BID 02/14/21 12/30/22 mirtazapine 15 mg tablet 15 mg PO BEDTIME 02/14/21 12/30/22 carvedilol 12.5 mg tablet 12.5 mg PO BID 05/29/22 12/30/22 hydrochlorothiazide 25 mg tablet 25 mg PO DAILY 05/29/22 12/30/22 lidocaine 5 % topical patch 1 patch topical DAILY 05/29/22 12/30/22 prednisone 20 mg tablet 20 mg PO DAILY 05/29/22 12/30/22 dulaglutide 3 mg/0.5 mL 3 mg subcut QWEEK 11/27/22 12/30/22 subcutaneous pen injector (Trulicity) Previous Rx's Medication Instructions Recorded pantoprazole 40 mg tablet,delayed 40 mg PO BID 2 months #120 tabs 08/21/22 release ferrous sulfate 325 mg (65 mg 325 mg PO BID #60 tabs 09/01/22 iron) tablet sennosides 8.6 mg capsule (senna) 8.6 mg PO BEDTIME 30 days #30 caps 10/15/22 bisacodyl 5 mg tablet,delayed 10 mg PO ONCE colon prep 5 days 11/27/22 release (Dulcolax (bisacodyl)) #10 tabs polyethylene glycol 3350 17 17 g PO DAILY colon prep 1 day 11/27/22 gram/dose oral powder (Miralax) #238 grams cholecalciferol (vitamin D3) 250 250 mcg PO 2XW 90 days #26 caps 12/11/22 mcg (10,000 unit) capsule Allergies Allergy/AdvReac Type Severity Reaction Status Date / Time No Known Allergies Allergy Verified 11/27/22 13:08 [No Known Allergies*] Review of Systems Review of Systems Constitutional: No Fever, No Chills, No Fatigue, No Malaise ENT/Mouth: No Hearing loss, No Ear Pain, No sore throat, No Rhinorrhea, No Swallowing Difficulty Eyes: No Eye Pain, No Swelling, No Redness Cardiovascular: No Chest Pain, No SOB, No Palpitations Respiratory: No Cough, No Sputum, No Dyspnea Gastrointestinal: + Nausea, + Vomiting, No Diarrhea, No Constipation, + Abdominal pain Genitourinary:No Dysuria, No Urinary Frequency, No Hematuria, No Flank Pain, No Urinary Flow Changes, No Hesitancy Musculoskeletal: No joint pain, No Myalgias, No Joint Swelling Skin: No Skin Lesions, No rash Neuro: No Weakness, No Numbness, No Dizziness, No Headache Yes all other systems are reviewed and are negative Constitutional: Reports as per [facility] Past Medical History Attestation statement: The following information was validated with the patient. Source: old records reviewed Medical History Depression Diabetes Gastric adenocarcinoma Gastritis Gastrointestinal stromal tumor (GIST) (~2014) History of colon polyps History of gastrectomy Hydrocele Hypercholesterolemia Hypertension Renal calculi Vitamin B12 deficiency Surgical History History of back surgery (~2017) History of colonoscopy (~07/22/19) History of esophagogastroduodenoscopy (EGD) (07/22/19) History of hernia repair Hx of endoscopy Hx of esophagogastroduodenoscopy Hx of resection of stomach Family History Family History Father No problems noted. Mother History of cancer Social History Social History Household Members: Spouse Housing: House Alcohol intake: former Patient Tobacco Use Status: Former Tobacco user Quit Date: 40 years ago Tobacco use type: Cigarette Years Smoked: 35 Smoked in Last 30 Days: No Use of substances other than those prescribed or required for medical reasons: No Advance Directives: No Advance Directives Information Provided: No service: No Current occupational status: retired Physical Exam ED Vital Signs: Vital Signs - 24 hr 12/30/22 20:14 12/30/22 20:22 12/31/22 00:15 Temperature 99.3 F 99.6 F 98.2 F Pulse Rate 116 H 118 H 94 Respiratory Rate 20 21 H 22 H Blood Pressure 136/76 136/85 98/42 L Pulse Oximetry 94 100 96 Oxygen Delivery Method Room Air Room Air Room Air 12/31/22 02:04 12/31/22 06:21 12/31/22 07:17 Temperature 98.7 F 98.2 F Pulse Rate 77 64 69 Respiratory Rate 20 18 12 Blood Pressure 95/57 L 120/48 L 110/70 Pulse Oximetry 96 96 96 Oxygen Delivery Method Room Air Room Air Room Air 12/31/22 10:08 12/31/22 11:54 Temperature Pulse Rate 74 68 Respiratory Rate 22 H 16 Blood Pressure 143/85 H 91/52 L Pulse Oximetry 95 97 Oxygen Delivery Method Room Air Room Air BMI result Body Mass Index 30.6 Const General: cooperative, healthy appearing and no acute distress Orientation/consciousness: patient oriented x3 Limitations: no limitations HENMT Head: Yes normal to inspection and Yes atraumatic Ears: hearing grossly normal bilaterally General nose exam: Normal external nose present Face and sinus: Yes normal facial exam Eyes General: appearance normal, both eyes and all related structures EOM: EOMs intact bilaterally Neck Neck: Yes normal visual inspection and Yes no meningeal signs Resp Effort & Inspection: normal respiratory effort and no respiratory distress Auscultation: clear to auscultation bilaterally Cardio Rate: regular rate Heart sounds: S1 normal heart sound present and S2 normal heart sound present GI Inspection: Yes normal to inspection and Yes scar (Old surgical scars) Palpation (GI): Soft to palpation, Tenderness to palpation present (GI) (Diffusely, no rebound or guarding), no guarding and not rigid General: Yes CVA tenderness bilateral Back/Spine/Pelvis Back: CVA tenderness Skin Rashes: no rashes Wounds: no wounds Neuro General: patient oriented x3, tone normal and no meningeal signs Gait exam (Neuro): Normal gait present Extrem General: Yes normal to inspection Course Course Course Narrative: -2143--leukocytosis of 14.5 > likely reactive from pain, nausea and vomiting. H&H at patient's baseline. > will empirically cover with Zosyn it is still low suspicion for severe sepsis - +RAKESH with BUN of 21, creatinine of 1.60, hyperglycemic to 278, sodium correction for hyperglycemia normalized at 137. Magnesium mildly low 1.5 > IV repletion ordered -chronic transaminitis CT abdomen pelvis wo IV con IMPRESSION: 1.? A cause for the patient's abdominal pain and nausea has not been found. 2.? Incidental note made of an enlarged fatty liver, stable benign hepatic cysts, bilateral nonobstructing nephrolithiasis, prior partial gastrectomy with gastrojejunal anastomosis, mild BPH and degenerative changes in the spine. ? Fleischner guidelines were followed. -0153--UA not infected. Delay in chemistry due to processor being down 0220--ED care transferred to Dr. 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 On exam initially tachycardic likely from pain, low-grade temp 99.3 degrees, NAD/nontoxic appearing, abdomen soft diffusely tender to palpation with bilateral CVAT. Concern for appendicitis/diverticulitis/colitis vs ?SBO vs dehydration vs hyperglycemia/DKA. Rule out UTI. Low suspicion for severe sepsis at this time Plan: EKG, labs, UA, CT AP, IVF, pain control Please refer to course for remaining clinical decision making, interpretation of labs/imaging results, and discussions with consultants and/or family members. Differential Diagnosis Differential Diagnoses: The differential diagnosis associated with the presentation includes As above Admission/Observation Consideration of admission/observation: Escalation of care including admission/observation considered Lab Data MDM Lab Attestation statement: I reviewed the patient's lab results. 12/30/22 20:52 12/30/22 20:52 Labs: Lab Results 12/30/22 12/30/22 12/30/22 Range/Units 20:52 20:52 20:52 WBC 14.5 H (4.8-10.8) X10*3/uL RBC 3.90 L (4.60-5.80) X10*6/uL Hgb 11.3 L (14.0-18.0) g/dl Hct 33.7 L (42.0-52.0) % MCV 86.4 (80.0-98.0) fL MCH 29.0 (27.0-33.0) pg MCHC 33.5 (31.0-36.0) g/dl RDW 13.4 (11.0-16.0) % Plt Count 283 (160-400) X10*3/uL MPV 9.8 (9.4-12.4) fL Immature Gran % (Auto) 0.3 (0.0-0.4) % Neut % (Auto) 88.4 H (45-73) % Lymph % (Auto) 6.1 L (20-40) % Dukes % (Auto) 4.0 (2-11) % Eos % (Auto) 0.8 (0-4) % Baso % (Auto) 0.4 (0-2) % Lymph # (Auto) 0.9 L (1.2-4.9) X10*3/uL Dukes # (Auto) 0.6 (0.1-1.2) X10*3/uL Eos # (Auto) 0.1 (0.0-0.4) X10*3/uL Baso # (Auto) 0.1 (0.0-0.2) X10*3/uL Abs Immat Gran (auto) 0.05 H (0.00-0.03) X10*3/uL Absolute Neuts (auto) 12.9 H (2.0-8.3) x10*3/uL Absolute Nucleated RBC 0.000 (0.0-0.012) X10*3/uL Nucleated RBC % (auto) 0.0 (0.0-0.2) /100WBC PT 12.3 (11.1-13.3) SEC INR 1.0 (0.9-1.1) VBG pH (7.32-7.43) VBG pCO2 mmHg VBG pO2 mmHg VBG HCO3 (22-26) mmol/L VBG O2 Saturation % VBG Base Excess mmol/L Sodium 133 L (135-145) mmol/L Potassium 4.8 (3.3-5.1) mmol/L Chloride 101 (96-108) mmol/L Carbon Dioxide 22 (22-29) mmol/L Anion Gap 15 (12-20) BUN 21 H (9-16) mg/dL Creatinine 1.60 H (0.5-1.4) mg/dL Estim Creat Clear Calc 38.6 Estimated GFR 43 Random Glucose 278 H (60-115) mg/dL Calcium 9.0 (8.4-10.2) mg/dL Magnesium 1.5 L (1.6-2.6) mg/dL Total Bilirubin 0.4 (0.0-1.0) mg/dL Direct Bilirubin 0.2 (0.0-0.5) mg/dL AST 82 H (5-37) U/L ALT 57 H (0-40) U/L Alkaline Phosphatase 64 (39-117) U/L Troponin I High Sens (<3.5-35.0) ng/L Total Protein 7.6 (6.5-8.0) g/dL Albumin 3.7 (3.5-5.0) g/dL Lipase 7 L (8-78) U/L Urine Color Urine Appearance Urine pH (5.0-9.0) Ur Specific [place] (1.005-1.025) Urine Protein (Neg-Trace) mg/dL Urine Glucose (UA) (Negative) mg/dL Urine Ketones (Negative) mg/dL Urine Blood (Negative) Urine Nitrite (Negative) Ur Leukocyte Esterase (Negative) Volat Analys Perform On Ethyl Alcohol mg/dL Ethyl Alcohol g/dL Methyl Alcohol Level Isopropyl Alc, Quant Acetone Level 12/30/22 12/30/22 12/30/22 Range/Units 20:52 20:52 21:01 WBC (4.8-10.8) X10*3/uL RBC (4.60-5.80) X10*6/uL Hgb (14.0-18.0) g/dl Hct (42.0-52.0) % MCV (80.0-98.0) fL MCH (27.0-33.0) pg MCHC (31.0-36.0) g/dl RDW (11.0-16.0) % Plt Count (160-400) X10*3/uL MPV (9.4-12.4) fL Immature Gran % (Auto) (0.0-0.4) % Neut % (Auto) (45-73) % Lymph % (Auto) (20-40) % Dukes % (Auto) (2-11) % Eos % (Auto) (0-4) % Baso % (Auto) (0-2) % Lymph # (Auto) (1.2-4.9) X10*3/uL Dukes # (Auto) (0.1-1.2) X10*3/uL Eos # (Auto) (0.0-0.4) X10*3/uL Baso # (Auto) (0.0-0.2) X10*3/uL Abs Immat Gran (auto) (0.00-0.03) X10*3/uL Absolute Neuts (auto) (2.0-8.3) x10*3/uL Absolute Nucleated RBC (0.0-0.012) X10*3/uL Nucleated RBC % (auto) (0.0-0.2) /100WBC PT (11.1-13.3) SEC INR (0.9-1.1) VBG pH 7.48 H (7.32-7.43) VBG pCO2 31 mmHg VBG pO2 53 mmHg VBG HCO3 23 (22-26) mmol/L VBG O2 Saturation 87.0 % VBG Base Excess 0.7 mmol/L Sodium (135-145) mmol/L Potassium (3.3-5.1) mmol/L Chloride (96-108) mmol/L Carbon Dioxide (22-29) mmol/L Anion Gap (12-20) BUN (9-16) mg/dL Creatinine (0.5-1.4) mg/dL Estim Creat Clear Calc Estimated GFR Random Glucose (60-115) mg/dL Calcium (8.4-10.2) mg/dL Magnesium (1.6-2.6) mg/dL Total Bilirubin (0.0-1.0) mg/dL Direct Bilirubin (0.0-0.5) mg/dL AST (5-37) U/L ALT (0-40) U/L Alkaline Phosphatase (39-117) U/L Troponin I High Sens 4.7 (<3.5-35.0) ng/L Total Protein (6.5-8.0) g/dL Albumin (3.5-5.0) g/dL Lipase (8-78) U/L Urine Color Urine Appearance Urine pH (5.0-9.0) Ur Specific [place] (1.005-1.025) Urine Protein (Neg-Trace) mg/dL Urine Glucose (UA) (Negative) mg/dL Urine Ketones (Negative) mg/dL Urine Blood (Negative) Urine Nitrite (Negative) Ur Leukocyte Esterase (Negative) Volat Analys Perform On Cancelled Ethyl Alcohol mg/dL Cancelled Ethyl Alcohol g/dL Cancelled Methyl Alcohol Level Cancelled Isopropyl Alc, Quant Cancelled Acetone Level Cancelled 12/31/22 12/31/22 12/31/22 Range/Units 00:18 00:18 14:07 WBC (4.8-10.8) X10*3/uL RBC (4.60-5.80) X10*6/uL Hgb (14.0-18.0) g/dl Hct (42.0-52.0) % MCV (80.0-98.0) fL MCH (27.0-33.0) pg MCHC (31.0-36.0) g/dl RDW (11.0-16.0) % Plt Count (160-400) X10*3/uL MPV (9.4-12.4) fL Immature Gran % (Auto) (0.0-0.4) % Neut % (Auto) (45-73) % Lymph % (Auto) (20-40) % Dukes % (Auto) (2-11) % Eos % (Auto) (0-4) % Baso % (Auto) (0-2) % Lymph # (Auto) (1.2-4.9) X10*3/uL Dukes # (Auto) (0.1-1.2) X10*3/uL Eos # (Auto) (0.0-0.4) X10*3/uL Baso # (Auto) (0.0-0.2) X10*3/uL Abs Immat Gran (auto) (0.00-0.03) X10*3/uL Absolute Neuts (auto) (2.0-8.3) x10*3/uL Absolute Nucleated RBC (0.0-0.012) X10*3/uL Nucleated RBC % (auto) (0.0-0.2) /100WBC PT (11.1-13.3) SEC INR (0.9-1.1) VBG pH (7.32-7.43) VBG pCO2 mmHg VBG pO2 mmHg VBG HCO3 (22-26) mmol/L VBG O2 Saturation % VBG Base Excess mmol/L Sodium 134 L 131 L (135-145) mmol/L Potassium 4.5 5.1 (3.3-5.1) mmol/L Chloride 102 102 (96-108) mmol/L Carbon Dioxide 24 24 (22-29) mmol/L Anion Gap 13 10 L (12-20) BUN 20 H 16 (9-16) mg/dL Creatinine 1.53 H 1.43 H (0.5-1.4) mg/dL Estim Creat Clear Calc 40.4 43.2 Estimated GFR 45 49 Random Glucose 222 H 290 H (60-115) mg/dL Calcium 8.5 8.6 (8.4-10.2) mg/dL Magnesium 2.3 (1.6-2.6) mg/dL Total Bilirubin (0.0-1.0) mg/dL Direct Bilirubin (0.0-0.5) mg/dL AST (5-37) U/L ALT (0-40) U/L Alkaline Phosphatase (39-117) U/L Troponin I High Sens (<3.5-35.0) ng/L Total Protein (6.5-8.0) g/dL Albumin (3.5-5.0) g/dL Lipase (8-78) U/L Urine Color Yellow Urine Appearance Clear Urine pH 7.0 (5.0-9.0) Ur Specific [place] 1.015 (1.005-1.025) Urine Protein Negative (Neg-Trace) mg/dL Urine Glucose (UA) 250 H (Negative) mg/dL Urine Ketones Negative (Negative) mg/dL Urine Blood Negative (Negative) Urine Nitrite Negative (Negative) Ur Leukocyte Esterase Negative (Negative) Volat Analys Perform On Ethyl Alcohol mg/dL Ethyl Alcohol g/dL Methyl Alcohol Level Isopropyl Alc, Quant Acetone Level Independent Interpretation I performed an independent interpretation of an: EKG (EKG sinus tachycardia rate of 109. Pr interval 158. QTC 409. No STEMI. No significant change when compared to prior) Radiology Impression Discussion of test interpretation with radiology: I have reviewed the radiologist's reading. Independent Historian Clinical information obtained from an independent historian. History obtained from or confirmed by: Spouse External Record Review External record reviewed: Inpatient record, Office record, Outpatient record, Prior outpatient labs, Prior outpatient radiology, Primary care record and Outside ED record Tests considered The following testing was considered but not selected: As above Chronic Conditions Patient?s care impacted by: Other (Gastric CA) Medications Administered Discontinued Medications Generic Name Dose Route Start Last Admin Trade Name Freq PRN Reason Stop Dose Admin Famotidine 20 mg 12/30/22 20:31 12/30/22 21:02 Famotidine/Pf 20 Mg/2 Ml Vial IVPUSH 12/30/22 20:32 20 mg ONCE ONE Administration Lactated Ringer's 1,000 mls @ 999 mls/hr 12/30/22 20:45 12/30/22 22:03 Lr IV 12/30/22 21:45 Infused .Q1H1M EVY Infusion Piperacillin Sod/Tazobactam 50 mls @ 100 mls/hr 12/30/22 21:51 12/30/22 22:54 Sod 2.25 gm/ Sodium Chloride IV 12/30/22 22:20 Infused ONCE ONE Infusion Lactated Ringer's 1,000 mls @ 999 mls/hr 12/30/22 22:00 12/30/22 23:29 Lr IV 12/30/22 23:00 Infused .Q1H1M EVY Infusion Magnesium Sulfate 2 gm in 50 mls @ 25 mls/hr 12/30/22 23:58 12/31/22 02:28 Magnesium Sulfate/H2o IV 12/31/22 01:57 Infused ONCE ONE Infusion Sodium Chloride 1,000 mls @ 999 mls/hr 12/31/22 13:12 12/31/22 14:59 Ns IV 12/31/22 14:12 Infused .Q1H1M ONE Infusion Morphine Sulfate 2 mg 12/30/22 21:12 12/30/22 21:18 Morphine Sulfate 2 Mg/Ml Cartridge IVPUSH 12/30/22 21:13 2 mg ONCE ONE Administration Protocol Ondansetron HCl 4 mg 12/30/22 20:31 12/30/22 21:02 Ondansetron Hcl 4 Mg/2 Ml Vial IVPUSH 12/30/22 20:32 4 mg ONCE ONE Administration Discharge Plan Discharge Clinical Impression: RAKESH (acute kidney injury), Nausea & vomiting Patient Disposition: Xfer [facility] Transfer Details: Patient with volume loss creatinine elevated to 1.83 after IV fluids decreased to 1.43 Instructions: Acute Kidney Injury (DC), Acute Nausea and Vomiting (ED) Additional Instructions: Drink plenty of fluids Medicine for nausea as prescribed Prescriptions: No Action pantoprazole 40 mg tablet,delayed release (DR/EC) 40 mg PO BID 60 Days Qty: 120 3RF ferrous sulfate 325 mg (65 mg iron) Tablet 325 mg PO BID Qty: 60 3RF senna 8.6 mg capsule 8.6 mg PO BEDTIME 30 Days Qty: 30 4RF cholecalciferol (vitamin D3) 250 mcg (10,000 unit) capsule 250 mcg PO 2XW 90 Days Qty: 26 1RF atorvastatin 20 mg Tablet 20 mg PO BEDTIME cyanocobalamin (vitamin B-12) 1,000 mcg Tablet 1,000 mcg PO DAILY amlodipine [Norvasc] 10 mg Tablet 10 mg PO DAILY calcium polycarbophil 625 mg Tablet 1,250 mg PO DAILY mirtazapine 15 mg tablet 15 mg PO BEDTIME lisinopril 30 mg tablet 30 mg PO DAILY metformin 500 mg tablet 500 mg PO BID hydrochlorothiazide 25 mg tablet 25 mg PO DAILY prednisone 20 mg tablet 20 mg PO DAILY carvedilol 12.5 mg tablet 12.5 mg PO BID lidocaine 5 % adhesive patch,medicated 1 patch topical DAILY Trulicity 3 mg/0.5 mL pen injector 3 mg subcut QWEEK bisacodyl [Dulcolax (bisacodyl)] 5 mg tablet,delayed release (DR/EC) 10 mg PO ONCE 5 Days Qty: 10 0RF Rx Instructions: Take 2 tablets at 12 pm the day before colonoscopy polyethylene glycol 3350 [Miralax] 17 gram/dose powder 17 g PO DAILY 1 Days Qty: 238 0RF Rx Instructions: Mix Miralax with 64 oz(8 cups) of Crystal light. Take 2 tablets of Dulcolax qt 12 pm. Wait to have your 1st bowel movement, then begin drinking Miralax. Drink a glass of Miralax every 10-15 minutes until you are finished. You will drink at least another 4 cups of clear liquid of your choice over the next 2 hours. Please drink as many clear liquids as possible You may have clear liquids up to four hours before your procedure
[2022-12-30 20:22] VITALS: BP 136/85; PULSE 118; RESP 21; TEMP 37.6; O2SAT 100
--- NOTE | 2022-12-30 20:31 | ECG_ITS ---
Test Reason : ABD PAIN Blood Pressure : / mmHG Vent. Rate : 109 BPM Atrial Rate : 109 BPM P-R Int : 158 ms QRS Dur : 072 ms QT Int : 304 ms P-R-T Axes : 051 -10 016 degrees QTc Int : 409 ms Sinus tachycardia Otherwise normal ECG When compared with ECG of 20-JUL-2019 17:55, No significant change was found Referred By: Jaida Hammond Electronically Signed By:BURTON HENRIQUEZ MD
[2022-12-30] MEDS: Famotidine/PF 20 MG/2 ML VIAL IVPUSH (21:02)
[2022-12-30] MEDS: ondansetron HCL 4 MG/2 ML VIAL IVPUSH (21:02)
[2022-12-30] MEDS: Lactated Ringers 1,000 ML 999 ML IV ×2 (21:02→22:24)
[2022-12-30 21:04] LABS: MANUAL DIFF FLAG NO
[2022-12-30 21:05] LABS: Basophils Absolute Auto 0.1 X10*3/uL (0.0-0.2); Basophils Percent Auto 0.4 % (0-2); Eosinophils Absolute Auto 0.1 X10*3/uL (0.0-0.4); Eosinophils Percent Auto 0.8 % (0-4); Hematocrit 33.7 % (42.0-52.0); Hemoglobin 11.3 g/dl (14.0-18.0); Imm Gran Abs Auto 0.05 X10*3/uL (0.00-0.03); Imm Gran Pct Auto 0.3 % (0.0-0.4); Lymphocytes Absolute Auto 0.9 X10*3/uL (1.2-4.9); Lymphocytes Percent Auto 6.1 % (20-40); Mean Corpuscular HGB Conc 33.5 g/dl (31.0-36.0); Mean Corpuscular Volume 86.4 fL (80.0-98.0); Mean Platelet Volume 9.8 fL (9.4-12.4); Monocytes Absolute Auto 0.6 X10*3/uL (0.1-1.2); Neutrophils Absolute Auto 12.9 x10*3/uL (2.0-8.3); Neutrophils Percent Auto 88.4 % (45-73); Platelet Count 283 X10*3/uL (160-400); Red Cell Distribution Width 13.4 % (11.0-16.0); White Blood Count 14.5 X10*3/uL (4.8-10.8)
[2022-12-30 21:09] LABS: VBG Base Excess 0.7 mmol/L; VBG HCO3 23 mmol/L (22-26); VBG pCO2 31 mmHg; VBG pH 7.48 (7.32-7.43); VBG pO2 53 mmHg
[2022-12-30 21:10] LABS: Prothrombin Time 12.3 SEC (11.1-13.3)
[2022-12-30] MEDS: Morphine Sulfate 2 MG/ML CARTRIDGE IVPUSH (21:18)
[2022-12-30 21:37] LABS: Troponin-I High Sensitivity 4.7 ng/L (<3.5-35.0)
[2022-12-30 21:44] LABS: Alanine Aminotransferase 57 U/L (0-40); Albumin Level 3.7 g/dL (3.5-5.0); Alkaline Phosphatase 64 U/L (39-117); Anion Gap 15 (12-20); Aspartate Amino Transferase 82 U/L (5-37); Bilirubin Direct 0.2 mg/dL (0.0-0.5); Bilirubin Total 0.4 mg/dL (0.0-1.0); Blood Urea Nitrogen 21 mg/dL (9-16); Carbon Dioxide 22 mmol/L (22-29); Chloride 101 mmol/L (96-108); Creatinine Clr Calc Pharmacy 38.6; Estimated Glomerular Filt Rate 43; Glucose Random 278 mg/dL (60-115); Lipase 7 U/L (8-78); Magnesium 1.5 mg/dL (1.6-2.6); Potassium 4.8 mmol/L (3.3-5.1); Sodium 133 mmol/L (135-145); Total Protein 7.6 g/dL (6.5-8.0)
[2022-12-30] MEDS: Piperacillin Sodium/Tazobactam 2.25 GM in 0.9 % Sodium Chloride 50 ML IV (22:24)
[2022-12-30 23:10] LABS: Venous Blood Gas Refer to POC result
[2022-12-31] VITALS (7 sets, daily range): BP systolic 91–143; BP diastolic 42–85; PULSE 64–94; RESP 12–22; TEMP 36.6–37.1; O2SAT 95–98
[2022-12-31] MEDS: Magnesium Sulfate/H2O 2 GM/50 ML PIGGYBACK IV (00:27)
[2022-12-31 00:31] LABS: Appearance Urine Clear; Color Urine Yellow; Glucose Urine UA 250 mg/dL (Negative); Leukocyte Esterase Urine Negative (Negative); Nitrite Urine Negative (Negative); Specific Gravity - Urine 1.015 (1.005-1.025); Urine Blood Negative (Negative); Urine Ketones Negative (Negative); Urine Protein Negative (Neg-Trace)
[2022-12-31 01:50] LABS: Anion Gap 13 (12-20); Blood Urea Nitrogen 20 mg/dL (9-16); Calcium 8.5 mg/dL (8.4-10.2); Carbon Dioxide 24 mmol/L (22-29); Chloride 102 mmol/L (96-108); Glucose Random 222 mg/dL (60-115); Potassium 4.5 mmol/L (3.3-5.1); Sodium 134 mmol/L (135-145)
[2022-12-31 02:19] LABS: Creatinine Clr Calc Pharmacy 40.4; Estimated Glomerular Filt Rate 45
--- NOTE | 2022-12-31 07:16 | PC.NURSE ---
Pt resting comfortably, denied any pain or discomfort, Call gonzalez with in reach.
--- NOTE | 2022-12-31 07:18 | PC.NURSE ---
Iv patent and running.
--- NOTE | 2022-12-31 09:50 | PC.NURSE ---
Pt currently sleeping, no apparent pain or discomfort noted, call gonzalez with in reach.
--- NOTE | 2022-12-31 11:55 | PC.NURSE ---
Pt currently sleeping, no apparent pain or discomfort noted, lights dimmed, call gonzalez with in reach.
[2022-12-31] MEDS: 0.9 % Sodium Chloride 1,000 ML 999 ML IV (13:16)
[2022-12-31 15:22] LABS: Anion Gap 10 (12-20); Blood Urea Nitrogen 16 mg/dL (9-16); Calcium 8.6 mg/dL (8.4-10.2); Carbon Dioxide 24 mmol/L (22-29); Chloride 102 mmol/L (96-108); Creatinine Clr Calc Pharmacy 43.2; Estimated Glomerular Filt Rate 49; Glucose Random 290 mg/dL (60-115); Magnesium 2.3 mg/dL (1.6-2.6); Potassium 5.1 mmol/L (3.3-5.1); Sodium 131 mmol/L (135-145)
== END 2022-12-31 16:19 | disposition home or self-care (01) ==
PROVIDERS: Internal Medicine; Physician Assistant; Emergency Provider Emergency Medicine; PCP Internal Medicine
DX: N17.9 Acute kidney failure, unspecified (principal); R11.2 Nausea with vomiting, unspecified; I10 Essential (primary) hypertension; E11.65 Type 2 diabetes mellitus with hyperglycemia; C16.9 Malignant neoplasm of stomach, unspecified; Z79.85 Long-term (current) use of injectable non-insulin antidiabetic drugs; Z87.891 Personal history of nicotine dependence
CPT/HCPCS: 36415; 74176; 80048; 80076; 81003; 82803; 83690; 83735; 84484; 85025; 85610; 93005; 96361; 96365; 96366; 96375; 99285; J2270; J2405; J2543; J3475

== ENCOUNTER → 2022-12-30 20:31 | Outpatient (BNV) | payer OTHER, SELFPAY | PROVIDERS: Emergency Provider Emergency Medicine; PCP Internal Medicine; Visit Provider Internal Medicine Cardiovascular Disease | DX: R10.9 Unspecified abdominal pain (principal) | CPT/HCPCS: 93010 ==

== ENCOUNTER 2023-01-23 11:47 | Day surgery (SDC) | payer OTHER, SELFPAY ==
[2023-01-21 10:51] VITALS: BMI 30.8
--- NOTE | 2023-01-22 09:44 | HO.ANESPROP2 ---
Documented by User: Shelia Trevino NP 01/22/23 09:52 HPI - Anesthesia Eval Consult details Narrative: 72yo [place] [facility] [place] with RAKESH and hyponatremia PMFSH Active Problems Active Problems: All Active Problems (Updated 01/01/23 @ 00:01 by Rigoberto Gaxiola) Iron deficiency anemia (Acute) History of colon polyps (Acute) Gastric adenocarcinoma (Acute) Gastritis (Acute) Vitamin B12 deficiency (Acute) Past Medical History Medical History Depression Diabetes Gastric adenocarcinoma Gastritis Gastrointestinal stromal tumor (GIST) (~2014) History of colon polyps History of gastrectomy Hydrocele Hypercholesterolemia Hypertension Renal calculi Vitamin B12 deficiency Family History Family History Father No problems noted. Mother History of cancer Family history of problems with anesthesia: No Surgical History Surgical History History of back surgery (~2016) History of colonoscopy (~07/22/19) History of esophagogastroduodenoscopy (EGD) (07/22/19) History of hernia repair Hx of endoscopy Hx of esophagogastroduodenoscopy Hx of resection of stomach History of Problems with Anesthesia: No Social History Social History Household Members: Spouse Housing: House Alcohol intake: former Patient Tobacco Use Status: Former Tobacco user Quit Date: 40 years ago Tobacco use type: Cigarette Years Smoked: 35 Use of substances other than those prescribed or required for medical reasons: No Are you DNR?: No Advance Directives: No Advance Directives Information Provided: Yes service: No Current occupational status: retired Meds Allergies Allergy/AdvReac Type Severity Reaction Status Date / Time No Known Allergies Allergy Verified 11/27/22 13:08 [No Known Allergies*] Home Medications Medication Instructions Recorded Confirmed Last Taken Type amlodipine 10 mg tablet (Norvasc) 10 mg PO DAILY 03/27/20 12/30/22 Unknown History atorvastatin 20 mg tablet 20 mg PO BEDTIME 03/27/20 12/30/22 Unknown History calcium polycarbophil 625 mg tablet 1,250 mg PO DAILY 03/27/20 12/30/22 Unknown History cyanocobalamin (vitamin B-12) 1,000 mcg PO DAILY 03/27/20 12/30/22 Unknown History 1,000 mcg tablet lisinopril 30 mg tablet 30 mg PO DAILY 02/14/21 12/30/22 Unknown History metformin 500 mg tablet 500 mg PO BID 02/14/21 12/30/22 Unknown History mirtazapine 15 mg tablet 15 mg PO BEDTIME 02/14/21 12/30/22 Unknown History carvedilol 12.5 mg tablet 12.5 mg PO BID 05/29/22 12/30/22 Unknown History hydrochlorothiazide 25 mg tablet 25 mg PO DAILY 05/29/22 12/30/22 Unknown History lidocaine 5 % topical patch 1 patch topical DAILY 05/29/22 12/30/22 Unknown History prednisone 20 mg tablet 20 mg PO DAILY 05/29/22 12/30/22 Unknown History dulaglutide 3 mg/0.5 mL 3 mg subcut QWEEK 11/27/22 12/30/22 Unknown History subcutaneous pen injector (Trulicity) Exam Exam Date and Time: January 22, 2023 0944 Height,Weight and Vital Signs: Height 5 ft 3 in Weight 78.925 kg Pertinent Lab Results Pertinent Lab Results: Laboratory Tests 12/30/22 20:52 WBC 14.5 H Hgb 11.3 L Hct 33.7 L Plt Count 283 Narrative Narrative: EKG 12/2022 Vent. Rate : 109 BPM ? ? Atrial Rate : 109 BPM ?? P-R Int : 158 ms? QRS Dur : 072 ms ? ? QT Int : 304 ms ? ? ? P-R-T Axes : 051 -10 016 degrees ?? QTc Int : 409 ms ? Sinus tachycardia Otherwise normal ECG When compared with ECG of 20-JUL-2019 17:55, No significant change was found Assessment and Plan Assessment Anesthesia Assessment: Chart Reviewed Final Anesthetic Review Family History of Problems with Anesthesia: No History of Problems with Anesthesia: No Documented by User: Antonella Machado MD 01/23/23 13:40 HPI - Anesthesia Eval Consult details Narrative: 72yo [place] for [place] [facility] [place] with RAKESH and hyponatremia, labs pending [facility] Past Medical History Medical History Depression Diabetes Gastric adenocarcinoma Gastritis Gastrointestinal stromal tumor (GIST) (~2014) History of colon polyps History of gastrectomy Hydrocele Hypercholesterolemia Hypertension Renal calculi Vitamin B12 deficiency Family History Family History Father No problems noted. Mother History of cancer Surgical History Surgical History History of back surgery (~2016) History of colonoscopy (~07/22/19) History of esophagogastroduodenoscopy (EGD) (07/22/19) History of hernia repair Hx of endoscopy Hx of esophagogastroduodenoscopy Hx of resection of stomach Social History Social History Household Members: Spouse Housing: House Alcohol intake: former Patient Tobacco Use Status: Former Tobacco user Quit Date: 40 years ago Tobacco use type: Cigarette Years Smoked: 35 Use of substances other than those prescribed or required for medical reasons: No Are you DNR?: No Advance Directives: No Advance Directives Information Provided: Yes service: No Current occupational status: retired Meds Allergies Allergy/AdvReac Type Severity Reaction Status Date / Time No Known Allergies Allergy Verified 11/27/22 13:08 [No Known Allergies*] Home Medications Medication Instructions Recorded Confirmed Last Taken Type amlodipine 10 mg tablet (Norvasc) 10 mg PO DAILY 03/27/20 12/30/22 Unknown History atorvastatin 20 mg tablet 20 mg PO BEDTIME 03/27/20 12/30/22 Unknown History calcium polycarbophil 625 mg tablet 1,250 mg PO DAILY 03/27/20 12/30/22 Unknown History cyanocobalamin (vitamin B-12) 1,000 mcg PO DAILY 03/27/20 12/30/22 Unknown History 1,000 mcg tablet lisinopril 30 mg tablet 30 mg PO DAILY 02/14/21 12/30/22 Unknown History metformin 500 mg tablet 500 mg PO BID 02/14/21 12/30/22 Unknown History mirtazapine 15 mg tablet 15 mg PO BEDTIME 02/14/21 12/30/22 Unknown History carvedilol 12.5 mg tablet 12.5 mg PO BID 05/29/22 12/30/22 Unknown History hydrochlorothiazide 25 mg tablet 25 mg PO DAILY 05/29/22 12/30/22 Unknown History lidocaine 5 % topical patch 1 patch topical DAILY 05/29/22 12/30/22 Unknown History prednisone 20 mg tablet 20 mg PO DAILY 05/29/22 12/30/22 Unknown History dulaglutide 3 mg/0.5 mL 3 mg subcut QWEEK 11/27/22 12/30/22 Unknown [facility] Exam Airway Mallampati Class: II TM Dist: >3cm Denture: Upper Heart: rrr Lungs: cta Assessment and Plan Assessment Anesthesia Assessment: Anesthesia Plan Discussed Final Anesthetic Review NPO: Yes ASA Class: III Final Preanesthetic Review: No Changes in Pt Med Stat, Meds/Allgs Chart Reviewed, Consent Obtained/Reviewed and Anes Risks/Benef Reviewed Patient Risk: Intermediate Procedure Risk: Low Anesthetic Plan Anesthetic Plan: MAC: Disposition: Standard PACU (will check lytes prior to anesthesia induction )
[2023-01-23 12:37] VITALS: BP 141/79; PULSE 66; RESP 18; TEMP 36.6; O2SAT 96
[2023-01-23] MEDS: Lactated Ringers 1,000 ML 100 ML IVCONT (12:39)
[2023-01-23 12:44] LABS: Anion Gap 13 (12-20); Blood Urea Nitrogen 14 mg/dL (9-16); Calcium 9.4 mg/dL (8.4-10.2); Carbon Dioxide 25 mmol/L (22-29); Chloride 104 mmol/L (96-108); Creatinine Clr Calc Pharmacy 50.4; Estimated Glomerular Filt Rate 58; Glucose Fasting 136 mg/dL (60-99); Potassium 4.5 mmol/L (3.3-5.1); Sodium 137 mmol/L (135-145)
[2023-01-23 12:49] LABS: Glucose, Whole Blood 130 mg/dL (60-115)
--- NOTE | 2023-01-23 13:14 | P.HPSUR_ITS ---
Pre-Procedural Eval Section A Date of Service: 01/23/23 The patient is an INPATIENT: No The History & Physical has been completed within 30 days and I have reviewed it.: No Section B Chief Complaint: surveillance of colon polyps, anemia Relevant Family History (Specify if Yes): No Relevant Social History: Tobacco Use ( former smoker) Present Medications: see Short Stay Collaborative assessment Medical History: Significant History (Diabetes Gastric adenocarcinoma Gastritis Gastrointestinal stromal tumor (GIST) (~2014) History of colon polyps History of gastrectomy Hydrocele Hypercholesterolemia Hypertension Renal calculi Vitamin B12 deficiency) History of Previous Operations: Relevant previous surgery/procedure and date(s) (History of back surgery (~2016) History of colonoscopy (~07/22/19) History of esophagogastroduodenoscopy (EGD) (07/22/19) History of hernia repair Hx of endoscopy Hx of esophagogastroduodenoscopy Hx of resection of stomach) Allergies: Allergies Allergy/AdvReac Type Severity Reaction Status Date / Time No Known Allergies Allergy Verified 11/27/22 13:08 [No Known Allergies*] Review of Systems Sugical H&P ROS: Negative: Constitution, Cardiovascular, Respiratory and Gastr ointestinal Exam Surgical H&P Exam: Normal: Heart, Normal: Lungs, Normal: Extremities and Normal: Abdomen Plan Diagnosis/Plan: Unchanged I have reviewed the history and physical and performed a pertinent physical examination on my patient. No changes have occurred unless specified. Time Spent With Patient Time: Total time managing care of this patient today ____ minutes.
--- NOTE | 2023-01-23 13:27 | P.OP_ITS ---
Operative Note Operative Note Date of Service: 01/23/23 Narrative: COLONOSCOPY TILL CECUM WITH SNARE POLYPECTOMY Pre-op diagnosis: surveillance for colon polyps, anemia Post-op diagnosis:? colon polyps, diverticulosis, hemorrhoid Endoscopist:? Trenton Mueller MD Anesthesia:?MAC Consent: Indications for the procedure and potential complications of bleeding, perforation, reaction to medications and missed diagnosis were discussed with the patient and informed consent was obtained. Instrument: Olympus CF H 190 L variable stiffness adult colonoscope Monitoring: Vital signs and clinical assessment, intermittent blood pressure monitoring, continuous EKG monitoring, Pulse oximetry and Carbon Dioxide monitoring were done throughout the procedure. Please see anesthesia flowsheet. Colon withdrawl time was 22 minutes. Procedure: The patient was placed in the left lateral decubitis position and pre-procedure medications were administered. After a digital rectal examination of the ano-rectum, the video colonoscope was inserted into the rectum and advanced through the colon to the cecum. The colonoscope was slowly withdrawn in a retrograde panoramic fashion and the colon mucosa was carefully examined including a retroflexed view of the rectum. Findings and interventions are described below. Procedure Difficulty: Without difficulty Findings: Terminal Ileum: Not evaluated Cecum: Normal Ascending Colon: A 7-8 mm sessile polyp in the mid AC - removed with a cold snare Transverse Colon: An 8-9 mm sessile polyp - removed with a cold snare Descending Colon: Normal Sigmoid Colon: A 6-7 mm sessile polyp - removed with a cold snare. Moderate diverticulosis Rectum: Normal Ano-rectum: Moderate internal hemorrhoids Colon preparation: Good After copious irrigation Impression and Post Procedure Diagnosis: Colonoscopy Findings: Three small polyps removed Moderate diverticulosis seen in the sigmoid colon Moderate hemorrhoids on retroflexed exam. Plan: Await pathology results Patient has an appointment on 03/12/23 in the GI Clinic with Trenton Mueller M.D. Repeat Colonoscopy interval based on path results - in 3 years if polyps are adenomatous and 10 years if polyps are hyperplastic (needs adult colonoscope for future colonoscopies and bisacodyl tablets daily starting 5 days prior to colon oscopy appointment). Above findings were reviewed with the patient and colon polyps and diverticulosis handouts were given in the discharge area
[2023-01-23 15:30] VITALS: BP 134/79; PULSE 69; RESP 15; TEMP 36.4; O2SAT 100
[2023-01-23 15:45] VITALS: BP 149/80; PULSE 67; RESP 16; O2SAT 98
[2023-01-23 16:01] VITALS: TEMP 36.7
--- NOTE | 2023-01-23 16:14 | PC.NURSE ---
Pt aware that he put his shorts on wrong side out. Pt declined offer to assist to change stating that he is hungry and his ride is waiting.
== END 2023-01-23 16:15 | disposition home or self-care (01) ==
PROVIDERS: Nurse Practitioner; PCP Internal Medicine; Visit Provider Internal Medicine Gastroenterology
PROC: 0DJD8ZZ Inspection of Lower Intestinal Tract, Via Natural or Artificial Opening Endoscopic (ICD-10-PCS; CPT 45378; principal; 2023-01-23 12:30)
DX: D12.2 Benign neoplasm of ascending colon (principal); D12.5 Benign neoplasm of sigmoid colon; D12.3 Benign neoplasm of transverse colon; K57.30 Diverticulosis of large intestine without perforation or abscess without bleeding; K64.8 Other hemorrhoids; Z86.010 Personal history of colon polyps; D50.9 Iron deficiency anemia, unspecified; E11.9 Type 2 diabetes mellitus without complications; I10 Essential (primary) hypertension; E78.5 Hyperlipidemia, unspecified; C16.9 Malignant neoplasm of stomach, unspecified; E53.8 Deficiency of other specified B group vitamins; Z87.891 Personal history of nicotine dependence; Z79.84 Long term (current) use of oral hypoglycemic drugs; Z79.899 Other long term (current) drug therapy
CPT/HCPCS: 45385; 36415; 80048; 82947; 88305

== ENCOUNTER → 2023-01-23 11:47 | Outpatient (BNV) | payer OTHER, SELFPAY | PROVIDERS: PCP Internal Medicine; Visit Provider Internal Medicine Gastroenterology | DX: D64.9 Anemia, unspecified (principal); D12.2 Benign neoplasm of ascending colon; D12.3 Benign neoplasm of transverse colon; D12.5 Benign neoplasm of sigmoid colon; K57.30 Diverticulosis of large intestine without perforation or abscess without bleeding | CPT/HCPCS: 45385 ==

== ENCOUNTER 2023-03-12 10:47 | Outpatient (AMB) | payer OTHER, SELFPAY ==
--- NOTE | 2023-03-12 10:55 | A.OFFVIS_ITS ---
Intake Vital Signs 03/12/23 10:58 Height 5 ft 3 in Weight 167 lb BMI 29.6 BP 119/59 L Blood Pressure Location Lt brachial Position Sitting Pulse 69 Intake Visit Reasons: s/P COLON Intake Note: Patient follow up for CT scan, EGD/Colonoscopy results. Patient cc: LLQ pain, and denies any other GI issues. Television News Photographer Required: Yes Television News Photographer Name: [facility] [place] interpeter Accompanied by: Self / Same As Patient Allergies No Known Allergies [No Known Allergies*] Allergy (Verified 03/12/23 10:53) Medication List - Last Reconciled 03/12/23 by Trenton Mueller MD amlodipine (Norvasc) 10 mg PO DAILY atorvastatin 20 mg PO BEDTIME calcium polycarbophil 1,250 mg PO DAILY carvedilol 12.5 mg PO BID cholecalciferol (vitamin D3) 250 mcg PO 2XW 90 days cyanocobalamin (vitamin B-12) 1,000 mcg PO DAILY dulaglutide (Trulicity) 3 mg subcut QWEEK ferrous sulfate 325 mg PO BID glipizide ER (Glucotrol XL) 10 mg PO DAILY hydrochlorothiazide 25 mg PO DAILY lidocaine 5% 1 patch topical DAILY lisinopril 30 mg PO DAILY metformin 500 mg PO BID mirtazapine 15 mg PO BEDTIME pantoprazole 40 mg PO BID 2 months prednisone 20 mg PO DAILY sennosides (senna) 8.6 mg PO BEDTIME 30 days HPI s/P COLON HPI Details GI Clinic visit for this 71 year old Croatian-speaking male followed in GI for Gastric adenoca (diagnosed in 07/[address] Ferrera in Oncology), GIST in 2013 S/P resection, KELVIN and adenomatous colon polyps 12/30/22 patient was seen at [facility] [place] ED dehyd ration and abdominal pain. Abdominal CT scan showed: 1. A cause for the patient's abdominal pain and nausea has not been found. 2. Incidental note made of an enlarged fatty liver, stable benign hepatic cysts, bilateral nonobstructing nephrolithiasis, prior partial gastrectomy with gastrojejunal anastomosis, mild BPH and degenerative changes in the spine. ?LABS IN [facility]: 11/22/19 H&H of 10.1 and 33.7, platelet 257, INR 1, normal LFTs, CEA 1.8 ? 06/28/19 2/3 stool occult blood were positive. ? IMAGING STUDIES: 07/18/[address] scan showed mild constipation and no acute intra-abdominal process. Bilateral renal cysts without echogenic stones or hydronephrosis. ?ENDOSCOPIC STUDIES: 01/23/23 COLONOSCOPY SHOWED: Three small polyps removed Moderate diverticulosis seen in the sigmoid colon Moderate hemorrhoids on retroflexed exam. Plan: Repeat Colonoscopy interval based on path results - in 3 years if polyps are adenomatous and 10 years if polyps are hyperplastic (needs adult colonoscope for future colonoscopies and bisacodyl tablets daily starting 5 days prior to colonoscopy appointment). 10/24/22 EGD AND COLON SHOWED: Endoscopy Findings: STOMACH: Diffuse gastric erythema - biopsies were obtained from the gastric body.? Normal appearing gary en Y anastomosis at 50 cms - biopsies were obtained from the anastomosis. Colonoscopy Findings: Procedure was discontinued due to poor prep Plan: Pt will be rescheduled for Colonoscopy after re-discussing the prep with the pt 09/30/21 EGD SHOWED: STOMACH: Diffuse gastric erythema - biopsies were obtained from the gastric body.? Normal appearing gary en Y anastomosis at 50 cms - biopsies were obtained from the anastomosis. A 2 cms linear erosion in the gastric body along the greater curvature? - biopsied. BIOPSIES SHOWED: A.? Stomach, anastomosis, biopsy:? Mixed gastric and small intestinal mucosa with chronic active inflammation; no Helicobacter organisms identified. B.? Stomach, body greater curvature, biopsy:? Oxyntic mucosa with moderate chronic inactive inflammation; no Helicobacter organisms seen. C.? Stomach, body lesser curvature, biopsy:? Oxyntic mucosa with moderate chronic inactive inflammation; no Helicobacter organisms seen. D.? Stomach, erosion, biopsy:? Oxyntic mucosa with mild chronic, focally active, inflammation; no Helicobacter organisms seen. COMMENT: No malignancy is identified. 07/2019 EGD AND COLON SHOWED: ? STOMACH: Gastritis and a 2 cms pre-pyloric ulcer ? Colonoscopy Two medium-sized adenomatous polyps (one was 10 mm in size) were removed and large hemorrhoids were detected on retroflexed exam. ? Iron def anemia likely related to gastric ulcer - biopsies obtained to rule out recurrent GIST. ? Repeat Colonoscopy interval based on path results - in 3-5 years if polyps are adenomatous and 10 years if polyps are hyperplastic. ? BIOPSIES SHOWED: ? A. Small bowel, biopsy: Duodenal mucosa within normal limits. ? B. Stomach, ulcer, biopsy: Adenocarcinoma, moderate-poorly differentiated. ? C. Stomach, antrum, biopsy: Antral-type mucosa with moderate chronic inactive inflammation and intestinal metaplasia; no dysplasia seen; no Helicobacter organisms seen. ? D. Colon, transverse, polypectomy: Fragments of tubular adenoma; no high grade dysplasia or carcinoma seen. ? E. Colon, sigmoid, polypectomy: Fragments of tubular adenoma; no high grade dysplasia or carcinoma seen. ? F. Rectum, polypectomy: Hyperplastic mucosal polyp. ? COMMENT: HER2 immunostain is being performed on the gastric adenocarcinoma; results will be addended. ? TODAY'S VISIT ? [facility] [place] County Manager, Jenifer Complains of left sided abdominal pain which is constant. Takes pain medication which helps the pain briefly and then pain recurs. Denies fever or chills. Hx of renal stones - this pain is different. Has a BM twice a day - denies hard stools or straining. PAST VISIT: Left sided abd pain for the past month which comes and goes and can last for 30 or 45 minutes. Pain is 8/10 in inetnsity and feels like pressure. Can have pain with eating and while lying down. Denies recent constipation or diarrhea. Denies wt loss Appetite is normal Continues to have hoarseness EGD and biopsy results reviewed with the pt. 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 Denies cough , sore throat or SOB. Denies heartburn, dysphagia or abdominal pain Taking medications for constipation and has a BMs are variable. Denies constipation ? ? Complains of constipation related to oral iron. On some days he feels bloated and unable to eat any more after he takes a tablespoonful of rice. Denies heartburn or dysphagia. Takes stool softeners prn for constipation which are helpful? ? ? EGD results reviewed. ?Finished XRT and declined additional chemo. ?? ? I am doing good . ? Appetite is good and weight is stable between 142 & 149 lbs. ? ? ? Denies abdominal pain or constipation. ? At the last GI visit he reported his constipation has resolved and straining with stools has improved with taking fiber twice daily, patient states that he has normal bowel movements daily and had no issues at that time [facility] Medical History (Updated 03/18/23 @ 19:21 by Trenton Mueller MD) Diabetes History of gastrectomy History of colon polyps Gastrointestinal stromal tumor (GIST) (~2014) Gastric adenocarcinoma Hydrocele Renal calculi Gastritis Vitamin B12 deficiency Hypercholesterolemia Hypertension Depression Surgical History Hx of resection of stomach Hx of esophagogastroduodenoscopy Hx of endoscopy History of hernia repair History of back surgery (~2017) History of colonoscopy (~07/22/19) History of esophagogastroduodenoscopy (EGD) (07/22/19) Family History Father No problems noted. Mother History of cancer Social History Household Members: Spouse Housing: House Alcohol intake: former Patient Tobacco Use Status: Former Tobacco user Quit Date: 40 years ago Tobacco use type: Cigarette Years Smoked: 35 service: No Current occupational status: retired Review of Systems Const All systems reviewed & are unremarkable except as noted in HPI and below Physical Exam Vital Signs: Last Vital Signs Pulse 69 03/12/23 10:58 BP 119/59 L 03/12/23 10:58 BMI result Body Mass Index 29.6 Const General: healthy appearing and no acute distress Nutritional Appearance: overweight Orientation/consciousness: patient oriented x3 Limitations: no limitations HEENT Head: Yes normal to inspection Ears: hearing grossly normal bilaterally Eyes Sclerae: sclerae normal Pupils: Equal, round and reactive pupils present Neck Neck: Yes normal visual inspection Chest Chest palpation & inspection: normal inspection of the chest Resp Effort & Inspection: normal respiratory effort Auscultation: clear to auscultation bilaterally Cardio Palpation: normal PMI Rate: regular rate Rhythm: regular rhythm Heart sounds: S1 normal heart sound present, S2 normal heart sound present and no murmurs GI Palpation (GI): Soft to palpation, nontender and No hepatosplenomegaly present Auscultation: normal bowel sounds Rectal Exam - Male: Yes deferred Skin General skin exam: no rashes or lesions noted Neuro General: patient oriented x3, gait normal and moves all extremities Cranial nerves: Yes Equal, round and reactive pupils present Psych Appearance: grossly normal Mental Status: mental status grossly normal Assessment & Plan Assessment & Plan (1) Iron deficiency anemia: Code(s): D50.9 - Iron deficiency anemia, unspecified (2) History of colon polyps: Comment: 07/28 Two medium sized adenomatous polyps were removed during colonoscopy. Repeat colonoscopy is advised in 3 years. 01/2023 Three polyps removed on FU colon - Fu advised in 3 yrs (due in 01/2026). Code(s): Z86.010 - Personal history of colonic polyps (3) Gastric adenocarcinoma: Comment: Repeat EGD in 1 yr - due 09/2022 Code(s): C16.9 - Malignant neoplasm of stomach, unspecified (4) Vitamin B12 deficiency: Code(s): E53.8 - Deficiency of other specified B group vitamins (5) Gastritis: Code(s): K29.70 - Gastritis, unspecified, without bleeding Plan 72 YM with diabetes, hypertension, hypercholesterolemia, vitamin B12 deficiency, right renal calculi, hydrocele, history of GIST (status post removal in 2014) hospitalized in the past with worsening anemia. 07/22/19 Upper endoscopy showed a 2 cm pre-pyloric ulcer with narrowing of pylorus - adenocarcinoma on biopsies. ?Staging workup included PET-CT performed 09/01/2019 showed no evidence of metastatic disease. Focal SUV max of 3.9 noted along proximal duodenum without underlying CT abnormality. On 09/14/2019 he underwent exploratory laparotomy with lysis of adhesions, distal gastrectomy with omentectomy, end-to-side Gary-en-Y gastrojejunostomy. Pathology: Invasive adenocarcinoma, diffuse type, poorly differentiated with signet ring features. Tumor site in antrum/lesser curvature, size 1.6 x 1.1 x 0.5 cm, grade 3, tumor invades the muscularis propria. All margins negative for invasive carcinoma. Thirteen regional lymph nodes examined, 3 positive, lymphovascular invasion present, extensive. Perineural invasion present. Final pathological stage pT2 pN2. Stage II. HER2 IHC 2+, negative by FISH amplification ?Genetic screening for inherited cancer syndromes was negative for any germ line mutations. ? He started postoperative chemo/radiation (bolus and infusional 5 FU/leucovorin) therapy on 10/26/2019. Two cycles of chemotherapy initially followed by concurrent chemo RT and 4 additional cycles of chemotherapy planned. He did not tolerate chemotherapy with radiation and declined post radiation chemotherapy.? He has agreed to be monitored with physical examination, blood work and imaging as deemed necessary. 10/2021 EGD showed normal appearing gary en Y anastomosis at 50 cms - biopsies obtained from the anastomosis were negative for malignancy and H pylori. Pt was advised to increase pantoprazole to 40 mg twice daily. 10/2022 EGD (FU of Gastric cancer) and same day colonoscopy (FU of colon polyps) were performed in results as noted above 11/27/22 PT complains of lower abdominal pain and advised to schedule an Abd- Pelvic CT scan. 01/2023 Colonoscopy was performed and three polyps were removed Follow-up in 6 months Coding Level of Care Code Est Pt Level 3 (25614) Diagnoses Iron deficiency anemia D50.9 History of colon polyps Z86.010 Gastric adenocarcinoma C16.9 Vitamin B12 deficiency E53.8 Gastritis K29.70 Time Spent (min) 18
[2023-03-12 10:58] VITALS: BP 119/59; PULSE 69; BMI 29.6
== END 2023-03-12 11:48 | disposition home or self-care (01) ==
PROVIDERS: PCP Internal Medicine; Visit Provider Internal Medicine Gastroenterology
DX: D50.9 Iron deficiency anemia, unspecified (principal); Z86.010 Personal history of colon polyps; C16.9 Malignant neoplasm of stomach, unspecified; E53.8 Deficiency of other specified B group vitamins; K29.70 Gastritis, unspecified, without bleeding
CPT/HCPCS: 99213

== ENCOUNTER → 2023-03-12 10:47 | Outpatient (BNVA) | payer OTHER, SELFPAY | PROVIDERS: PCP Internal Medicine; Visit Provider Internal Medicine Gastroenterology | DX: K29.70 Gastritis, unspecified, without bleeding (principal); C16.9 Malignant neoplasm of stomach, unspecified; E53.8 Deficiency of other specified B group vitamins; D50.9 Iron deficiency anemia, unspecified; Z86.010 Personal history of colon polyps | CPT/HCPCS: 99212 ==

== ENCOUNTER 2023-04-01 14:17 | Outpatient (REF) | payer OTHER, SELFPAY ==
--- NOTE | ~2023-04-01 | CT_ITS ---
STUDY: IV contrast-enhanced CT of chest, abdomen and pelvis INDICATION: Stomach cancer surveillance. COMPARISON: Previous studies, most recent, 09/02/2021 TECHNIQUE: Continuous helical imaging obtained through the chest, abdomen and pelvis following injection of 85 mL Omnipaque 350 contrast without adverse effect. Reconstructed images performed in the coronal and sagittal planes. MIP images of the chest performed. This CT examination was performed using dose optimization techniques as appropriate, variously including the following: *Automated exposure control *Adjustment of mA and/or kV according to patient size (this includes techniques or standardized protocols for targeted exams where dose is matched to indication/reason for exam; i.e. extremities or head) *Use of iterative reconstruction technique TOTAL EXAM DLP: 173.6 mGy-cm FINDINGS: SLAB PULLER: CHEST: Airways and lungs: Trachea and bronchi are patent. Mild paraseptal emphysema. No suspicious pulmonary nodules, consolidations or groundglass opacities. Pleura: No effusions, pneumothoraces, thickening or lesions. Mediastinum: Enlarged left thyroid with multiple versus lobulated right inferior thyroid lesion extending into the superior mediastinum. No pathologic lymphadenopathy. Mildly thickened esophagus. Heart and great vessels: Nonenlarged heart. No pericardial effusion. Degree of coronary calcifications: Minimal. Nonaneurysmal aorta with mild atherosclerotic calcifications. Nonenlarged pulmonary arteries. Chest wall and axilla: Tunneled right internal jugular chest port with internal tip in the superior vena cava. No axillary lymphadenopathy. ABDOMEN AND PELVIS: Hepatobiliary: Diffuse hypodensity to the liver parenchyma. Stable too small to characterize right inferomedial hepatic hypodensity, 3:17, likely cyst. Interval development of multiple ill-defined hepatic hypodensities, largest in the right hepatic lobe measures 1.3 cm. No intra or extrahepatic biliary ductal dilatation. Unremarkable gallbladder. Spleen: Unremarkable. Pancreas: Atrophic. Adrenal glands: No lesions. Kidneys, ureters and bladder: Kidneys are symmetric in size, shape and position. Multiple varying sized renal hypodensities largest on the right measures 2.7 cm, on the left, 3.8 cm both with Hounsfield units consistent with simple cysts. Tiny nonobstructing right renal calculi. Mild right renal pelvic, proximal ureteral dilatation and periureteral stranding with 4 mm proximal/mid ureteral calculus. No left hydroureteronephrosis. Mild urinary bladder wall thickening with fatty infiltration of the wall and minimal perivesicular stranding. Gastrointestinal: Small hiatal hernia. Evidence of previous gastric surgery. Decompressed stomach. Nonobstructive bowel pattern. Decompressed colon. Diverticulosis without diverticulitis. Pelvic organs: Enlarged heterogeneous enhancement concerning prostate. Pelvic phleboliths. Vessels: Atherosclerotic calcifications nonaneurysmal aorta and iliac arteries. Nonenlarged inferior vena cava and unremarkable iliac veins. Portal system. Lymph nodes: No pathologic lymphadenopathy. Abdominal wall: No significant hernia. BONES AND SOFT TISSUES: Unchanged benign-appearing right femoral mixed sclerotic and lucent focus. L5-S1 disc bulge. Degenerative changes. No suspicious osseous lesions. CT/CT abdomen pelvis w IV con IMPRESSION: Patient with history of gastric cancer. Stable post operative stomach. No CT evidence of intrathoracic metastatic disease. Interval development of ill-defined hepatic hypodensities, metastatic lesions need to be excluded. MRI recommended. Enlarged heterogeneous enhancing prostate. Correlate with PSA. Enlarged right thyroid lobe with nodule(s) extending into the superior mediastinum. Thyroid ultrasound recommended. Right renal cysts. Nonobstructing right renal calculi. Mild bladder wall thickening. Mild right pelvic prominence and proximal hydroureter to 4 mm proximal right ureteral calculus.
[2023-04-01] MEDS: iohexoL 350 MG/ML 100 ML INFUS..BTL 85 ML IV (15:51)
== END 2023-04-01 14:18 | disposition home or self-care (01) ==
LOC: HO.CT 14:17
PROVIDERS: PCP Internal Medicine; Visit Provider Internal Medicine
DX: C16.9 Malignant neoplasm of stomach, unspecified (principal)
CPT/HCPCS: 71260; 74177; Q9967

== ENCOUNTER 2023-04-17 09:34 | Outpatient (REF) | payer OTHER, SELFPAY ==
--- NOTE | ~2023-04-17 | XR_ITS ---
EXAMINATION: XR SHOULDER, RIGHT CLINICAL INFORMATION: 3 weeks right shoulder pain. History of rotator cuff repair 3 years ago. COMPARISON: None available. TECHNIQUE: AP external rotation, Grashey, scapular Y, and axillary views of the right shoulder. FINDINGS: Humeral head is slightly high riding relative to the glenoid which can be seen in rotator cough disease. Irregular superolateral aspect of the right humeral head. No fracture or dislocation. Ossification identified inferior to the glenohumeral joint and another smaller calcification seen inferior to the distal right clavicle. No fracture or dislocation. Visualized ribs and lung are unremarkable. Tunneled right internal jugular chest port is seen. XR/XR shoulder RT min 2V IMPRESSION: Chronic appearing changes. No acute bony pathology.
== END 2023-04-17 09:35 | disposition home or self-care (01) ==
LOC: HO.HHCX 09:34
PROVIDERS: Visit Provider Emergency Medicine
DX: M25.511 Pain in right shoulder (principal)
CPT/HCPCS: 73030

== ENCOUNTER 2023-04-23 12:22 | Day surgery (SDC) | payer OTHER, SELFPAY ==
--- NOTE | ~2023-04-23 | US_ITS ---
EXAMINATION: US ABDOMEN LIMITED CLINICAL INFORMATION: Liver lesions. Question recurrent malignancy. COMPARISON: CT abdomen and pelvis 04/01/2023. Renal ultrasound 10/21/2018 and 04/19/2018. X-ray KUB 03/10/2018. TECHNIQUE: Real-time imaging of the right liver. Permanent documented images obtained. FINDINGS: LIVER: Liver parenchyma is of diffusely increased echogenicity but no definite focal lesion identified on images provided. Ultrasound-guided liver lesion biopsy canceled. US/US abdomen limited IMPRESSION: Hepatic steatosis. No sonographic correlate to recent CT ill-defined hepatic hypodensities. Consider MRI. If lesion(s) are reproduced, MRI guided biopsy is a possible option.
[2023-04-23 13:02] VITALS: BMI 30.1
[2023-04-23 13:04] VITALS: BP 155/91; PULSE 69; RESP 18; TEMP 36.7; O2SAT 96
[2023-04-23 13:10] LABS: Glucose, Whole Blood 162 mg/dL (60-115)
[2023-04-23 13:19] LABS: Prothrombin Time 11.6 SEC (11.1-13.3)
[2023-04-23 13:22] LABS: Partial Thromboplastin Time 30.2 SEC (26.0-36.4)
--- NOTE | 2023-04-23 15:05 | PC.NURSE ---
Pt provided with beverage and snack prior to discharge
== END 2023-04-23 14:46 | disposition home or self-care (01) ==
LOC: HO.SSS 12:23
PROVIDERS: Physician Assistant Surgical; Radiology Vascular & Interventional Radiology; PCP Internal Medicine; Visit Provider Internal Medicine
DX: R16.0 Hepatomegaly, not elsewhere classified (principal); Z53.8 Procedure and treatment not carried out for other reasons; K76.0 Fatty (change of) liver, not elsewhere classified; C16.9 Malignant neoplasm of stomach, unspecified; Z90.3 Acquired absence of stomach [part of]; Z92.21 Personal history of antineoplastic chemotherapy; Z92.3 Personal history of irradiation; I10 Essential (primary) hypertension; E11.9 Type 2 diabetes mellitus without complications; Z98.890 Other specified postprocedural states; Z87.891 Personal history of nicotine dependence; Z79.85 Long-term (current) use of injectable non-insulin antidiabetic drugs; Z79.84 Long term (current) use of oral hypoglycemic drugs; Z79.899 Other long term (current) drug therapy
CPT/HCPCS: 36415; 76705; 82947; 85610; 85730; 86850; 86900; 86901; J2250; J2310; J3010

== ENCOUNTER 2023-04-29 14:08 | Outpatient (AMB) | payer OTHER, SELFPAY ==
--- NOTE | 2023-04-29 14:27 | A.OFFVIS_ITS ---
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 The patient states that several years ago he underwent right shoulder rotator cuff repair surgery performed by another provider. Patient states that he did well following the surgery up until 1 year ago. One year ago he re-injured his right shoulder while lifting heavy object. Since that time he has had difficulty lifting his right hand to shoulder height. He has had injections in the past which gave him minimal relief. He has also tried Tylenol and anti-inflammatory medicines which gave him minimal relief. The patient has done physical therapy which aggravated his Allergies No Known Allergies [No Known Allergies*] Allergy (Verified 04/29/23 14:28) Medication List - Last Reconciled 04/29/23 by Ayo Rosado MD amlodipine (Norvasc) 10 mg PO DAILY atorvastatin 20 mg PO BEDTIME calcium polycarbophil 1,250 mg PO DAILY carvedilol 12.5 mg PO BID cholecalciferol (vitamin D3) 250 mcg PO 2XW 90 days cyanocobalamin (vitamin B-12) 1,000 mcg PO DAILY dulaglutide (Trulicity) 3 mg subcut QWEEK ferrous sulfate 325 mg PO BID glipizide ER (Glucotrol XL) 10 mg PO DAILY hydrochlorothiazide 25 mg PO DAILY lidocaine 5% 1 patch topical DAILY lisinopril 30 mg PO DAILY mirtazapine 15 mg PO BEDTIME pantoprazole 40 mg PO BID 2 months [facility] Medical History (Updated 04/29/23 @ 14:59 by Ayo Rosado MD) Diabetes History of gastrectomy History of colon polyps Gastrointestinal stromal tumor (GIST) (~2014) Gastric adenocarcinoma Hydrocele Renal calculi Gastritis Vitamin B12 deficiency Hypercholesterolemia Hypertension Depression Surgical History Hx of resection of stomach Hx of esophagogastroduodenoscopy Hx of endoscopy History of hernia repair History of back surgery (~2016) History of colonoscopy (~07/22/19) History of esophagogastroduodenoscopy (EGD) (07/22/19) Family History Father No problems noted. Mother History of cancer Household Members: Spouse Housing: House Alcohol intake: former Patient Tobacco Use Status: Former Tobacco user Quit Date: 40 years ago Tobacco use type: Cigarette Years Smoked: 35 service: No Current occupational status: retired Physical Exam Const Other: Well-nourished well-developed very friendly male awake alert and oriented x3 in no acute distress Extrem Other: Bilateral upper extremity examination shows good capillary refill, no skin lesions noted, normal sensation light touch Right shoulder examination shows decreased range of motion when compared to his left shoulder, 3/5 strength with supraspinatus testing, positive impingement signs, tenderness over his acromioclavicular joint, no instability Results Reviewed Results Reviewed: X-rays of the patient's right shoulder show severe acromioclavicular joint narrowing, a type 2 acromion, no acute bony abnormalities Assessment & Plan Assessment & Plan (1) Right shoulder pain: Code(s): M25.511 - Pain in right shoulder Plan: Mr. Vernon Mccormack presents with right shoulder pain and weakness most likely due to a recurrence rotator cuff tear. Thus, I will send the patient for an MRI of his right shoulder for further evaluation. I will see him back once the MRI is completed to discuss the findings and treatment options. Feel free to call me at any time should questions regarding his orthopedic management arise. Thank you very much for asking me to see this very friendly gentleman. I spent 22 minutes in reviewing the patient's records and imaging studies, seeing the patient and documenting in the medical record. Orders: Orders MR shoulder RT wo con Today M25.511 - Pain in right shoulder Coding Level of Care Code New Pt Level 2 (66058) Diagnoses Right shoulder pain M25.511
== END 2023-04-29 15:05 | disposition home or self-care (01) ==
PROVIDERS: PCP Internal Medicine; Visit Provider Orthopaedic Surgery
DX: M25.511 Pain in right shoulder (principal)
CPT/HCPCS: 99202

== ENCOUNTER → 2023-04-29 14:08 | Outpatient (BNVA) | payer OTHER, SELFPAY | PROVIDERS: PCP Internal Medicine; Visit Provider Orthopaedic Surgery | DX: M25.511 Pain in right shoulder (principal) | CPT/HCPCS: 99202 ==

== ENCOUNTER 2023-05-27 | Outpatient (REF) | payer OTHER, SELFPAY ==
--- NOTE | ~2023-05-27 | US_ITS ---
EXAMINATION: US ABDOMEN LIMITED CLINICAL INFORMATION: Malignant neoplasm of stomach. COMPARISON: Ultrasound abdomen limited 04/23/2023. CT abdomen and pelvis 04/01/2023. Renal ultrasound 10/21/2018. X-ray abdomen KUB 03/10/2018. MRI abdomen without and with contrast 07/12/2013. TECHNIQUE: Real-time imaging of the right upper quadrant abdominal viscera. Limited visualization due to bowel gas. FINDINGS: PANCREAS: Limited visualization of pancreatic tail and head. Imaged portion of pancreatic body is unremarkable. LIVER: Hepatomegaly, 20.0 cm. Increased hepatic parenchymal heterogeneity and echogenicity which could be associated with hepatocellular disease/hepatic steatosis and severely limits visualization. GALLBLADDER: No gallstones. No gallbladder wall thickening. COMMON BILE DUCT: Normal in caliber measuring 0.8 cm in diameter. RIGHT KIDNEY: Multiple renal cysts, largest [id number]-[id number]-iulpg pole 3.7 x 2.6 x 3.1 cm appears complex with septations. No hydronephrosis. No renal calculi. Limited visualization. The kidney measures 10.9 cm in maximum dimension. FREE FLUID: None. US/US abdomen limited IMPRESSION: 1. Hepatomegaly, 20.0 cm. Increased hepatic parenchymal heterogeneity and echogenicity which could be associated with hepatocellular disease/hepatic steatosis and severely limits visualization. 2. Multiple right renal cysts, largest 3.7 cm appears complex with septations was better characterized on CT abdomen and pelvis of 04/01/2023.
== END 2023-05-27 00:01 | disposition home or self-care (01) ==
LOC: HO.US
PROVIDERS: PCP Internal Medicine; Visit Provider Internal Medicine
DX: C16.9 Malignant neoplasm of stomach, unspecified (principal); R16.0 Hepatomegaly, not elsewhere classified
CPT/HCPCS: 76705

== ENCOUNTER 2023-07-07 08:45 | Outpatient (REF) | payer OTHER, SELFPAY ==
--- NOTE | ~2023-07-07 | MR_ITS ---
EXAMINATION: MR SHOULDER WITHOUT CONTRAST, RIGHT CLINICAL INFORMATION: Pain in the right shoulder. COMPARISON: MRI dated 03/27/2016. TECHNIQUE: MRI of the shoulder without contrast was performed on a high-field scanner. FINDINGS: ROTATOR CUFF: Since the prior study from 2015, there has been progression of the rotator cuff tears, now with a massive rotator cuff tear measuring approximately 6.5 cm AP with complete disruption of the supraspinatus, subscapularis, and infraspinatus tendons. The supraspinatus tendon is retracted by 3.2 cm to the level of the humeral head apex. The subscapularis tendon is similarly retracted by approximately 2 cm. Multiple osseous fragments within the distal margin of the subscapularis tendon suggest an old avulsion injury. There is moderate subscapularis muscle atrophy with grade 3 fatty replacement. More [id number]-[id number]-hepuhpru supraspinatus and infraspinatus muscle atrophy and grade 2 fatty replacement. Overall, the degree of atrophy has progressed as compared to 2016. BICEPS: Biceps tendon is not well seen at the intra-articular extent and may be chronically torn. CORACOACROMIAL ARCH: The undersurface of the acromion is remodeled status post acromioplasty. No subacromial spur. Status post distal clavicular resection. LABRUM/CAPSULE: The superior and anteroinferior labrum are frayed and irregular, likely degenerative. Joint capsule is intact at the axillary pouch. GLENOHUMERAL JOINT/MARROW: There is a small cephalad migration of the humeral head as a result of the rotator cuff tear. Lnoqy-io-tgracmcq size marginal osteophytes at the glenoid. Mild non-uniform chondral thinning at the humeral head with more focal high-grade cartilage loss at the cephalad margin. Cortical irregularity at the greater and lesser tuberosities, consistent with chronic rotator cuff tendinopathy. As noted above, deformity of the lesser tuberosity is consistent with an old avulsion fracture. There is minimal chondral thinning at the glenoid articular surface. Low signal intensity loose bodies are present in the axillary pouch and inferior joint recess. MR/MR shoulder RT wo con IMPRESSION: 1. Progression of the massive rotator cuff tear since 2016 with complete disruption of the supraspinatus, infraspinatus, and subscapularis tendons. Moderate associated subscapularis muscle atrophy and more otsk-ga-nbhsmrqj muscle supraspinatus and infraspinatus muscle atrophy have progressed as well. 2. Mild glenohumeral osteoarthritis with degenerative fraying of the glenoid labrum. 3. Status post acromioplasty and distal clavicular resection. 4. Probable chronic tear of the biceps tendon.
== END 2023-07-07 08:46 | disposition home or self-care (01) ==
LOC: HO.MRI 08:45
PROVIDERS: PCP Internal Medicine; Visit Provider Orthopaedic Surgery
DX: M25.511 Pain in right shoulder (principal)
CPT/HCPCS: 73221

== ENCOUNTER 2023-07-09 10:40 | Outpatient (AMB) | payer OTHER, SELFPAY ==
[2023-07-09 10:53] VITALS: BMI 32.1
--- NOTE | 2023-07-09 10:53 | A.OFFVIS_ITS ---
Intake Vital Signs 07/09/23 10:53 Height 5 ft 3 in Weight 181 lb BMI 32.1 Intake Visit Reasons: ov- RT shoulder mri review Intake Note: Frantz is a 72 year old right hand dominant male who presents with progressively worsening right shoulder pain and weakness. The patient states that several years ago he underwent right shoulder rotator cuff repair surgery performed by another provider. Patient states that he did well following the surgery up until 1 year ago. One year ago he re-injured his right shoulder while lifting heavy object. Since that time he has had difficulty lifting his right hand to shoulder height. He has had injections in the past which gave him minimal relief. He has also tried Tylenol and anti-inflammatory medicines which gave him minimal relief. The patient has done physical therapy which aggravated his pain. Frantz is a 73 year old male who presents for an MRI review of his Right shoulder. 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 Allergies No Known Allergies [No Known Allergies*] Allergy (Verified 07/09/23 11:02) Medication List - Last Reconciled 07/09/23 by Ayo Rosado MD amlodipine (Norvasc) 10 mg PO DAILY atorvastatin 20 mg PO BEDTIME calcium polycarbophil 1,250 mg PO DAILY carvedilol 12.5 mg PO BID cholecalciferol (vitamin D3) 250 mcg PO 2XW 90 days cyanocobalamin (vitamin B-12) 1,000 mcg PO DAILY dulaglutide (Trulicity) 3 mg subcut QWEEK ferrous sulfate 325 mg PO BID glipizide ER (Glucotrol XL) 10 mg PO DAILY hydrochlorothiazide 25 mg PO DAILY lidocaine 5% 1 patch topical DAILY lisinopril 30 mg PO DAILY mirtazapine 15 mg PO BEDTIME pantoprazole 40 mg PO BID 2 months [facility] Medical History Diabetes History of gastrectomy History of colon polyps Gastrointestinal stromal tumor (GIST) (~2014) Gastric adenocarcinoma Hydrocele Renal calculi Gastritis Vitamin B12 deficiency Hypercholesterolemia Hypertension Depression Surgical History Hx of resection of stomach Hx of esophagogastroduodenoscopy Hx of endoscopy History of hernia repair History of back surgery (~2016) History of colonoscopy (~07/22/19) History of esophagogastroduodenoscopy (EGD) (07/22/19) Family History Father No problems noted. Mother History of cancer Social History Household Members: Spouse Housing: House Alcohol intake: former Patient Tobacco Use Status: Former Tobacco user Quit Date: 40 years ago Tobacco use type: Cigarette Years Smoked: 35 service: No Current occupational status: retired Physical Exam Vital Signs: BMI result Body Mass Index 32.1 Const Other: Well-nourished well-developed very friendly male awake alert and oriented x3 in no acute distress Extrem Other: Bilateral upper extremity examination shows good capillary refill, no skin lesions noted, normal sensation light touch Right shoulder examination shows decreased range of motion when compared to his left shoulder, 3/5 strength with supraspinatus testing, positive impingement signs, no instability Results Reviewed Results Reviewed: MRI of the patient's right shoulder shows a large chronic rotator cuff tear, no acute bony abnormalities Assessment & Plan Assessment & Plan (1) Right shoulder pain: Code(s): M25.511 - Pain in right shoulder Plan Mr. Vernon Mccormack presents with chronic right shoulder pain and weakness due to a large, chronic rotator cuff tear. At this point I am not sure that the rotator cuff tear is reparable. If it is reparable it may indeed need a grafting procedure in order to provide a successful repair. If the tear is not reparable the patient may be a candidate for reverse total shoulder replacement surgery. Thus, I will arrange for the patient to have a follow-up appointment with Dr. Jimenes to further discuss his surgical treatment options. The patient will continue with his range of motion exercises in the meantime. Feel free to call me at any time should questions regarding his orthopedic management arise. I spent 20 minutes in reviewing the patient's records and imaging studies, seeing the patient and documenting in the medical record. Coding Level of Care Code Est Pt Level 2 (47474) Diagnoses Right shoulder pain M25.511
== END 2023-07-09 11:20 | disposition home or self-care (01) ==
PROVIDERS: PCP Internal Medicine; Visit Provider Orthopaedic Surgery
DX: M75.121 Complete rotator cuff tear or rupture of right shoulder, not specified as traumatic (principal)
CPT/HCPCS: 99213

== ENCOUNTER → 2023-07-09 10:40 | Outpatient (BNVA) | payer OTHER, SELFPAY | PROVIDERS: PCP Internal Medicine; Visit Provider Orthopaedic Surgery | DX: M75.101 Unspecified rotator cuff tear or rupture of right shoulder, not specified as traumatic (principal) | CPT/HCPCS: 99212 ==

== ENCOUNTER 2023-07-20 13:22 | Outpatient (AMB) | payer OTHER, SELFPAY ==
--- NOTE | 2023-07-20 13:36 | MHC.OFFVIS ---
Intake Intake Visit Reasons: right shoulder replacement Intake Note: Frantz is a 73 year old male who presents today for a follow up of his right shoulder. He was last seen with Dr. Rosado who reccomends a Right Total Shoulder Replacement Allergies No Known Allergies [No Known Allergies*] Allergy (Verified 07/10/23 10:06) HPI right shoulder replacement HPI Details Frantz is a 73 year old man who presents to discuss his chronic right RTC tear & shoulder pain. He was referred here by Dr. Rosado. He complains of pain with daily activity, worse with overhead activity & at night. He is RHD. He cannot abduct his arm or get his hand to the back of his head. This has been ongoing for years but has worsened markedly over the past 6 months. He would like to discuss a TSA. [facility] Medical History Diabetes History of gastrectomy History of colon polyps Gastrointestinal stromal tumor (GIST) (~2014) Gastric adenocarcinoma Hydrocele Renal calculi Gastritis Vitamin B12 deficiency Hypercholesterolemia Hypertension Depression Surgical History Hx of resection of stomach Hx of esophagogastroduodenoscopy Hx of endoscopy History of hernia repair History of back surgery (~2016) History of colonoscopy (~07/22/19) History of esophagogastroduodenoscopy (EGD) (07/22/19) Family History Father No problems noted. Mother History of cancer Social History Household Members: Spouse Housing: House Alcohol intake: former Patient Tobacco Use Status: Former Tobacco user Quit Date: 40 years ago Tobacco use type: Cigarette Years Smoked: 35 service: No Current occupational status: retired Review of Systems Const All systems reviewed & are unremarkable except as noted in HPI and below Physical Exam Const General: no acute distress, alert and awake Orientation/consciousness: patient oriented x3 HEENT Head: Yes normocephalic and Yes atraumatic Eyes General: appearance normal, both eyes and all related structures Alignment and Position: alignment normal Conjunctivae: conjunctivae normal EOM: EOMs intact bilaterally Neck Neck: Yes normal visual inspection and Yes trachea midline Resp Other: No rerpiratory distress Effort & Inspection: normal respiratory effort and able to speak in complete sentences Cardio Other: Palpable radial pulse with no appreciable rythmic abnormalities Jugular venous distension: no JVD GI Other: No abdominal distension Back/Spine/Pelvis Cervical Spine: normal cervical lordosis and cervical ROM normal Skin General skin exam: turgor normal Rashes: no rashes Neuro General: patient oriented x3 Extrem Other: Shoulder: Right shoulder with + drop arm 4-/5 with EC Passive motion is full Active: 20/50/80/S1 + lift off Psych Appearance: grossly normal Affect: normal affect Attitude: cooperative Results Reviewed Results Reviewed: I personally reviewed relevant radiographs. Humeral head is slightly high riding relative to the glenoid which can be seen in rotator cuff disease. Irregular superolateral aspect of the right humeral head. No fracture or dislocation. Ossification identified inferior to the glenohumeral joint and another smaller calcification seen inferior to the distal right clavicle. I personally reviewed the MR images. Progression of the massive rotator cuff tear since 2016 with complete disruption of the supraspinatus, infraspinatus, and subscapularis tendons. Moderate associated subscapularis muscle atrophy and more [id number] muscle supraspinatus and infraspinatus muscle atrophy have progressed as well. 2. Mild glenohumeral osteoarthritis with degenerative fraying of the glenoid labrum. 3. Status post acromioplasty and distal clavicular resection. 4. Probable chronic tear of the biceps tendon. Assessment & Plan Assessment & Plan (1) Rotator cuff arthropathy of right shoulder: Code(s): M12.811 - Other specific arthropathies, not elsewhere classified, right shoulder Plan: Right shoulder rotator cuff arthropathy in a 73 yo active M. We had a long discussion and I reviewed his MRI with him. His MRI shows a retracted, atrophic rtc tear and coupled with his age, I do not think repair is reasonable. I recommend total shoulder arthroplasty. I explained the options to him. He understands that the surgery is for motion but that lifting objects over 10 lbs is not recommended. I discussed the risks benefits and alternatives including but not limited to the risk of pain, infection, axillary nerve injury, dislocation, stiffness, need for further surgery as well as potential medical complications such as blood clots, pulmonary embolism and cardiac complications. He is a diabetic but states this is well controlled. I will have a Joint Coordinator contact him and we will proceed forward accordingly. Plan Prepared for Vince Jimenes MD by Steve Bowden, director medical science, on 07/20/23 at 1:47 PM, EST. Coding Level of Care Code Est Pt Level 4 (00765) Diagnoses Rotator cuff arthropathy of right shoulder M12.811
== END 2023-07-20 14:49 | disposition home or self-care (01) ==
PROVIDERS: PCP Internal Medicine; Visit Provider Orthopaedic Surgery
DX: M12.811 Other specific arthropathies, not elsewhere classified, right shoulder (principal)
CPT/HCPCS: 99214

== ENCOUNTER → 2023-07-20 13:22 | Outpatient (BNVA) | payer OTHER, SELFPAY | PROVIDERS: PCP Internal Medicine; Visit Provider Orthopaedic Surgery | DX: M12.811 Other specific arthropathies, not elsewhere classified, right shoulder (principal) | CPT/HCPCS: 99212 ==

== ENCOUNTER 2023-08-13 08:47 | Outpatient (AMB) | payer OTHER, SELFPAY ==
[2023-08-13 09:02] VITALS: BP 114/60; PULSE 72; BMI 31.7
--- NOTE | 2023-08-13 09:02 | MHC.OFFVIS ---
Intake Vital Signs 08/13/23 09:02 Height 5 ft 3 in Weight 179 lb 0.246 oz BMI 31.7 BP 114/60 Blood Pressure Location Lt brachial Position Sitting Pulse 72 Pulse Source Monitor Intake Visit Reasons: pre-op/dr jimenes/rt boothe Fisher Trawl Line Required: Yes Fisher Trawl Line Language: Gravity Manager Name: elvia metz [id number] Allergies No Known Allergies [No Known Allergies*] Allergy (Verified 08/13/23 09:03) Medication List - Last Reconciled 08/13/23 by TYLER Jean amlodipine (Norvasc) 10 mg PO DAILY atorvastatin 20 mg PO BEDTIME calcium polycarbophil 1,250 mg PO DAILY carvedilol 12.5 mg PO BID cholecalciferol (vitamin D3) 250 mcg PO 2XW 90 days cyanocobalamin (vitamin B-12) 1,000 mcg PO DAILY dulaglutide (Trulicity) 3 mg subcut QWEEK ferrous sulfate 325 mg PO BID glipizide ER (Glucotrol XL) 10 mg PO DAILY hydrochlorothiazide 25 mg PO DAILY lidocaine 5% 1 patch topical DAILY lisinopril 30 mg PO DAILY mirtazapine 15 mg PO BEDTIME HPI pre-op/dr jimenes/rt boothe HPI Details Frantz is a 73-year-old male with past medical history of hypertension, hyperlipidemia, diabetes, obesity who was referred to Cardiology for preop evaluation for right rotator cuff surgery. Today presents for cardiology consultation. 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 He denies any chest discomfort at rest or with activity. He does have some mild shortness of breath with stair climbing. He is also limited by some knee discomfort when climbing stairs but denies knee discomfort with straight walking. No heart palpitations, lightheadedness, presyncope, syncope, PND, orthopnea or edema. States his mother had open heart surgery in the past and at age 75. No other known family history of heart disease. He is a nonsmoker and no alcohol use. He admits to being somewhat sedentary. Takes all his meds as directed. [facility] Medical History (Updated 08/13/23 @ 10:40 by TYLER Jean) Diabetes History of gastrectomy History of colon polyps Gastrointestinal stromal tumor (GIST) (~2014) Gastric adenocarcinoma Hydrocele Renal calculi Gastritis Vitamin B12 deficiency Hypercholesterolemia Hypertension Depression Surgical History Hx of resection of stomach Hx of esophagogastroduodenoscopy Hx of endoscopy History of hernia repair History of back surgery (~2017) History of colonoscopy (~07/22/19) History of esophagogastroduodenoscopy (EGD) (07/22/19) Family History Father No problems noted. Mother History of cancer Social History Household Members: Spouse Housing: House Alcohol intake: former Patient Tobacco Use Status: Former Tobacco user Quit Date: 40 years ago Tobacco use type: Cigarette Years Smoked: 35 service: No Current occupational status: retired Review of Systems Const All systems reviewed & are unremarkable except as noted in HPI and below ENT Denies dizziness Card Denies chest pain, Denies chest pain at rest, Denies chest pain with activity, Denies rapid heart rate, Denies pedal edema, Denies edema, Denies leg edema, Denies lightheadedness, Denies palpitations, Denies dyspnea, Reports dyspnea on exertion and Denies orthopnea Resp Denies cough, Denies dyspnea and Reports dyspnea on exertion GI Denies hematochezia and Denies change in stool character Musc Details: knee pain with stair climbing. Denies abnormal gait, Denies limited range of motion, Denies muscle cramps, Denies muscle weakness, Denies numbness, Denies radiating pain into limb, Denies stiffness and Denies tingling Neuro Denies abnormal gait, Denies dizziness, Denies numbness and Denies tingling Endo Denies palpitations Physical Exam Vital Signs: Last Vital Signs Pulse 72 08/13/23 09:02 BP 114/60 08/13/23 09:02 BMI result Body Mass Index 31.7 Const General: cooperative, healthy appearing, comfortable and no acute distress Orientation/consciousness: patient oriented x3 Neck Neck: Yes normal visual inspection and Yes no JVD Resp Effort & Inspection: normal respiratory effort Auscultation: clear to auscultation bilaterally, no crackles, no rales, no rhonchi and no wheezes Cardio Jugular venous distension: no JVD Rate: regular rate Rhythm: regular rhythm Heart sounds: S1 normal heart sound present, S2 normal heart sound present, no murmurs and no rubs Neuro General: patient oriented x3 Extrem General: Yes normal to inspection and No no pedal edema Psych Appearance: grossly normal Mental Status: mental status grossly normal Speech and movement: Normal speech and movement present Office Procedures EKG Details: Today, read by me, normal sinus rhythm, T-wave inversion lead 3, rate 72, QTC 418 millisecond [id number], Complete Assessment & Plan Assessment & Plan (1) SOB (shortness of breath): Code(s): R06.02 - Shortness of breath Plan: Report of mild shortness of breath when climbing stairs. Also has report of knee discomfort with stair climbing. Does not do much for exertional activities. Does have cardiac risk factors of hypertension, hyperlipidemia, diabetes, family history. EKG done today shows normal sinus rhythm with no acute ST or T-wave abnormalities, rate 72. He is now preop for rotator cuff surgery. Will check an echocardiogram to assess for any structural heart disease. Will check an exercise stress test to evaluate for ischemia and activity tolerance. He states he can exercise on a treadmill. Cardiology follow-up in 3-4 weeks, sooner if needed. Plan to complete preop clearance at that time. (2) Hypertension: Code(s): I10 - Essential (primary) hypertension Plan: Reported history of hypertension. Blood pressure very well controlled at this time. He continues on amlodipine, carvedilol, hydrochlorothiazide and lisinopril. Tells me that his blood pressure is monitored by his PCP. No med changes made today. (3) Hypercholesterolemia: Code(s): E78.00 - Pure hypercholesterolemia, unspecified Plan: LDL goal less than 70 in patient with diabetes. No recent lipids in our system. Last labs 06/16/2019 showed LDL 70. Continue on atorvastatin. Recommend recheck of fasting lipids in the near future. (4) Preop cardiovascular exam: Code(s): Z01.810 - Encounter for preprocedural cardiovascular examination Plan: Preop for rotator cuff surgery with Dr. Jimenes on 09/30/23. Cardiac testing to be done as above. Clearance will be addressed at next visit. Plan Time spent on chart review, documentation, interview and assessment Orders: Orders CA echo transthoracic complete Today I10 - Essential (primary) hypertension, R06.02 - Shortness of breath, Z01.810 - Encounter for preprocedural cardiovascular examination CA stress test Today E78.00 - Pure hypercholesterolemia, unspecified, I10 - Essential (primary) hypertension, R06.02 - Shortness of breath, Z01.810 - Encounter for preprocedural cardiovascular examination Coding Level of Care Code New Pt Level 4 (80222) Diagnoses SOB (shortness of breath) R06.02 Hypertension I10 Hypercholesterolemia E78.00 Preop cardiovascular exam Z01.810 CPT Codes EKG - CPT: [id number], Complete ([id number]) Time Spent (min) 28
== END 2023-08-13 09:34 | disposition home or self-care (01) ==
PROVIDERS: PCP Internal Medicine; Visit Provider Nurse Practitioner Family
DX: R06.02 Shortness of breath (principal); I10 Essential (primary) hypertension; E78.00 Pure hypercholesterolemia, unspecified; Z01.810 Encounter for preprocedural cardiovascular examination
CPT/HCPCS: 93010; 99204

== ENCOUNTER → 2023-08-13 08:47 | Outpatient (BNVA) | payer OTHER, SELFPAY | PROVIDERS: PCP Internal Medicine; Visit Provider Nurse Practitioner Family | DX: Z01.810 Encounter for preprocedural cardiovascular examination (principal); R06.02 Shortness of breath; E78.00 Pure hypercholesterolemia, unspecified; I10 Essential (primary) hypertension | CPT/HCPCS: 93005; 99202 ==

== ENCOUNTER → 2023-08-24 10:13 | Outpatient (REF) | payer OTHER, SELFPAY ==
--- NOTE | 2023-08-24 10:16 | CA_ITS ---
Acquisition Time: 2023-08-24 10:30:45 Total Exercise Time: 00:00:30 Test Indications: SOB, PREOP Medications: SEE H Protocol: SONIA Max HR: 100 BPM 68% of Pred: 147 BPM Max BP: 110/070 mmHG Max Work Load: 1.9 METS Exercise stress test exercise 30 second of Sonia protocol achieving 68% MPHR, with need to terminate test due to safety on treadmill. Test reviewed with Dr. Faith. Referred By: Amanda De La Paz Overread By: Nirali Grace
== END ==
LOC: HO.CARD 10:13
PROVIDERS: PCP Internal Medicine; Visit Provider Nurse Practitioner Family
DX: Z01.810 Encounter for preprocedural cardiovascular examination (principal); R06.02 Shortness of breath; I10 Essential (primary) hypertension; E78.00 Pure hypercholesterolemia, unspecified
CPT/HCPCS: 93017

== ENCOUNTER → 2023-08-24 10:16 | Outpatient (BNV) | payer OTHER, SELFPAY | PROVIDERS: PCP Internal Medicine; Visit Provider Nurse Practitioner | DX: R06.02 Shortness of breath (principal) | CPT/HCPCS: 93016; 93018 ==

== ENCOUNTER → 2023-08-26 08:42 | Outpatient (REF) | payer OTHER, SELFPAY ==
--- NOTE | 2023-08-26 08:47 | CA_ITS ---
Transthoracic Echocardiogram Patient (Last, First, Middle): Frantz Fink, Gender: Male Date of : 1950 Age: 73 Procedure Date: 08/26/2023 Procedure Type: Transthoracic Echocardiogram Location: OP Height: 160.02 cm Weight: 77.57 kg BSA: 1.81 m2 Heart Rate: bpm BP: 118 / 66 mmHg Provider Enrollment Specialist: DIANA Referring MD: Amanda De La Paz DIRECTOR MICROBIOLOGYJoceline Symptoms: R06.02 - Shortness of breath Study Quality: Adequate ECG Rhythm: Sinus Conclusions: - The left ventricular systolic function is normal. The calculated ejection fraction is 68% by biplane method. - No obvious valvular pathology seen on this study. Findings Left Ventricle Normal left ventricular cavity size. There is normal left ventricular wall thickness. The left ventricular systolic function is normal. The calculated ejection fraction is 68% by biplane method. There is no evidence of regional wall motion abnormalities. Diastolic function is normal for age. LV peak GLS -19.3%. Right Ventricle Normal right ventricular cavity size and systolic function. Atria Both atria are normal in size. Aortic Valve There is a normal trileaflet aortic valve. There is no aortic valve stenosis. There is no aortic valve regurgitation. Mitral Valve The mitral valve appears normal. There is trace mitral valve regurgitation. There is no mitral valve stenosis. Pulmonic Valve There is trace pulmonic valve regurgitation. Tricuspid Valve There is mild tricuspid valve regurgitation. There is no evidence of pulmonary hypertension. Great Vessels The asc aorta is normal in size. Venous The inferior vena cava is normal in size and collapses greater than 50% with inspiration. Pericardium/Pleural There is no evidence of pericardial effusion. Prior Study Comparison No prior study available for comparison. Recommendations, Care & Conclusions No obvious valvular pathology seen on this study. Measurements 2D Linear Measurements IVSd: 0.80 0.6-0.9/0.6-1.0 cm LVIDd: 4.18 3.9-5.3/4.2-5.9 cm LVIDd Index: 2.31 2.4-3.2/2.2-3.1 cm/m2 LVIDs: 2.75 2.0-3.6 cm LVPWd: 0.99 0.7-1.1 cm LA Diam: 3.30 2.7-3.8/3.0-4.0 cm LAIDs Index: 1.82 1.5-2.3 cm/m2 LV Mass: 145.44 67-162/88-224 g LV Mass Index: 80.35 43-95/49-115 g/m2 LVOT Diam: 2.10 3.0+(-)1.3 cm 2D Systolic Function EF 4C: 64.60 >55% EF 2C: 72.50 >55% EF BiP: 67.70 >55% Mitral Valve MV Pk E: 0.68 MV PK A: 0.66 MV Decel Time: 197.00 E/A: 1.00 E'Lateral: 9.79 E'Medial: 5.77 E/E' Med: 11.80 E/E' Lat: 7.00 PHT: 58.00 MVA PHT: 3.79 Decel [place]: 3.45 Aortic Valve AoV Pk Leo: 1.48 AoV Mn Leo: 0.93 AoV VTI: 0.31 AoV Pk Grad: 9.00 Aov Mn Grad: 4.00 QUANG Cont.VTI: 2.40 LVOT LVOT Pk Leo: 1.10 LVOT Mn Leo: 0.65 LVOT VTI: 0.22 LVOT Pk Grad: 5.00 LVOT Mn Grad: 2.00 LVOT Diam: 2.10 LVOT Area: 3.46 Diastolic Function MV Pk E: 0.68 MV Pk A: 0.66 E/A: 1.00 E'Medial: 5.77 E/E' Med: 11.80 E' Laterial: 9.79 E/E' Lat: 7.00 Right Ventricle TAPSE (mm): 24.00 TVS' Leo: 12.00 Tricuspid Valve TR Pk Leo: 2.41 TR Pk Grad: 23.00 RA Press: 3.00 RVSP: 26.00 Great Vessels Aorta Sinus of Valsalva: 3.53 2.0-3.5 cm Ao Asc: 3.50 2.1-3.4 cm Updated in Other Vendor System with Status of Final Alexis Faith MD electronically signed on 08/28/2023 10:16:27 AM with status of Final
== END ==
LOC: HO.CARD 08:42
PROVIDERS: PCP Internal Medicine; Visit Provider Nurse Practitioner Family
DX: Z01.810 Encounter for preprocedural cardiovascular examination (principal); R06.02 Shortness of breath; I10 Essential (primary) hypertension
CPT/HCPCS: 93306; 93356

== ENCOUNTER → 2023-08-26 08:47 | Outpatient (BNV) | payer OTHER, SELFPAY | PROVIDERS: PCP Internal Medicine; Visit Provider Internal Medicine | DX: R06.02 Shortness of breath (principal) | CPT/HCPCS: 93306 ==

== ENCOUNTER → 2023-08-31 12:36 | Outpatient (BNVA) | payer OTHER, SELFPAY | PROVIDERS: PCP Internal Medicine; Visit Provider Orthopaedic Surgery ==

== ENCOUNTER → 2023-09-03 08:40 | Outpatient (REF) | payer OTHER, SELFPAY ==
--- NOTE | ~2023-09-03 | NM_ITS ---
Myocardial perfusion study Indication: Shortness of breath evaluate for myocardial ischemia Technique: The patient was brought in for a Lexiscan perfusion study on 09/03/2023. Patient performed low-level exercise and was injected 0.4 mg of Lexiscan intravenously. Within a minute of injection, 25 mCi of sestamibi was given intravenously. Images were obtained using the SPECT gamma camera interlaced with the gating device. Images were obtained in supine position. Resting perfusion study was performed on 09/04/2023. Patient was administered 25 mCi of sestamibi intravenously at rest. Images were then obtained in supine position. Images obtained with and without CT attenuation. Total DLP 111 mGy-cm Images were processed with the software and compared side to side in short axis, horizontal long axis and vertical long axis views. Findings: The stress perfusion study showed non attenuated images show mildly to moderately reduced uptake in the basal and mid inferior wall of the LV myocardium. Remainder of the LV myocardium is normally perfused. Attenuation corrected images shows thinning and mildly reduced uptake in the inferior wall of the LV myocardium.. The gated study shows normal LV systolic function with calculated LVEF of 70%. LV cavity is normal in size. The gated study shows normal systolic wall thickening and contraction of segments. Resting study shows non attenuated images show mildly reduced uptake in the basal and mid inferior wall of the LV myocardium. Attenuation corrected images show normal uptake in the inferior wall of the LV myocardium.. Gating at rest reveals normal systolic wall motion with ejection fraction at 54%. The findings are consistent with basal attenuated corrected images there is mild intensity reversible defect of the basal and mid inferior wall suggestive of ischemia.. NM/NM cardiolite stress test Impression: 1. Myocardial perfusion imaging study shows mild intensity basal and mid inferior wall ischemia 2. Gated LVEF is 70% 3. Transient ischemic dilatation not present EKG is nondiagnostic for ischemia
--- NOTE | 2023-09-03 08:43 | CA_ITS ---
Acquisition Time: 2023-09-03 09:10:25 Total Exercise Time: 00:02:00 Test Indications: SOB Medications: AMLODIPINE ATROVASTATIN CARVEDILOL Protocol: LEXISCAN Max HR: 093 BPM 63% of Pred: 147 BPM Max BP: 114/060 mmHG Max Work Load: 1.0 METS Pharmacological stress test with Lexiscan injection, while sitting and kicking his legs, without anginal symptoms, without arrythmia, with normotensive response to injection, with nondiagnostic EKG for ischemia. Nuclear images pending. Test reviewed with Dr Diehl. Referred By: Amanda De La Paz Overread By: AMANDA DE LA PAZ
== END ==
LOC: HO.CARD 08:40
PROVIDERS: PCP Internal Medicine; Visit Provider Nurse Practitioner Family
DX: Z01.810 Encounter for preprocedural cardiovascular examination (principal); R06.02 Shortness of breath; I10 Essential (primary) hypertension
CPT/HCPCS: 78452; 93017; A9500; J0280; J2785

== ENCOUNTER → 2023-09-03 08:43 | Outpatient (BNV) | payer OTHER, SELFPAY | PROVIDERS: PCP Internal Medicine; Visit Provider Nurse Practitioner Family | DX: R06.02 Shortness of breath (principal) | CPT/HCPCS: 78452; 93016; 93018 ==

== ENCOUNTER 2023-09-07 09:55 | Outpatient (REF) | payer OTHER, SELFPAY ==
--- NOTE | ~2023-09-07 | CT_ITS ---
STUDY: IV contrast-enhanced CT of the chest, abdomen and pelvis, 09/07/2023. INDICATION: Malignant neoplasm of stomach, lower abdominal pain COMPARISON: 04/01/2023 TECHNIQUE: Continuous helical imaging obtained through the chest, abdomen and pelvis following 85 mL Omnipaque 350 IV contrast without adverse effect. No oral contrast administered. Reconstructed images performed in the coronal and sagittal planes. MIP axial images of the chest performed. This CT examination was performed using dose optimization techniques as appropriate, variously including the following: *Automated exposure control *Adjustment of mA and/or kV according to patient size (this includes techniques or standardized protocols for targeted exams where dose is matched to indication/reason for exam; i.e. 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 Clear lungs. Nonobstructive bowel pattern. LUNGS: Trachea and bronchi are patent. Paraseptal emphysema and cystic changes right lung apex. Scattered atelectasis and mild dependent right lower lobe atelectasis. No consolidations, groundglass opacities or suspicious nodules. PLEURA: No thickening, effusions or pneumothoraces. MEDIASTINUM/LYMPH NODES: Redemonstration enlarged substernal thyroid with possible 1.4 cm right lower pole hypodense nodule versus lobulation. No pathologic mediastinal or hilar lymphadenopathy. Nonspecific axillary lymph nodes. HEART AND GREAT VESSELS: Heart size within normal limits. No pericardial effusion is seen. Degree of coronary calcifications: Mild. Tunneled right internal jugular chest port with internal tip in the distal superior vena cava. Atherosclerotic calcifications identified about nonaneurysmal aorta and branch vessels. Pulmonary arteries are not dilated. Nonaneurysmal aorta with atherosclerotic calcifications. HEPATOBILIARY: Diffuse mild hypodensity density to the liver parenchyma. Too small to characterize posterior medial right hepatic hypodensity, unchanged from 09/02/2021 having shown enlargement from 07/18/2019. Interval appearing hepatic hypodensity seen on 04/01/2023 not appreciated on current examination. Unremarkable gallbladder. No intra or extrahepatic biliary ductal dilatation. SPLEEN, ADRENAL GLANDS: Unremarkable. KIDNEYS, URETERS AND BLADDER: Symmetrically perfused kidneys. Multiple bilateral renal cysts, largest on the right measuring 3.2 cm, on the left, 3.5 cm. Probable right vascular calcification. No renal calculi. 3-4 mm distal right ureteral calculus has migrated from previous proximal ureteral location. No hydroureteronephrosis. Unremarkable urinary bladder. GASTROINTESTINAL: Small hiatal hernia. Small caliber stomach with anastomotic suture lines. Nonobstructive bowel pattern. Unremarkable appendix. Moderate fecal retention. PELVIC ORGANS: Prominent enhancing prostate. Phleboliths. ABDOMINAL/PELVIC VESSELS: Atherosclerotic calcifications nonaneurysmal aorta. Normal caliber inferior vena cava. Patent portal system. LYMPH NODES: Nonspecific mesenteric lymph nodes, largest measuring 9 mm in the right mesentery. No pathologic lymphadenopathy. OSSEOUS STRUCTURES: No suspicious lesions. Hypertrophic bone adjacent to the right greater trochanter. SPINAL COMPRESSION: Absent. SOFT TISSUES: Unremarkable. CT/CT chest w IV con IMPRESSION: No CT evidence of metastatic disease chest, abdomen and pelvis. Stable postoperative stomach, patient with history of gastric cancer. Redemonstration enlarged heterogeneous thyroid with possible right lower lobe nodule for which ultrasound was previously recommended but to my knowledge has not been performed. 3-4mm distal right ureteral calculus without associated proximal hydroureteronephrosis.
[2023-09-07] MEDS: iohexoL 350 MG/ML 100 ML INFUS..BTL 85 ML IV (12:22)
[2023-09-09 16:44] LABS: Creatinine POC 1.2 mg/dL (0.5-1.4); GFR POC > 60
== END 2023-09-07 09:56 | disposition home or self-care (01) ==
LOC: HO.CT 09:55
PROVIDERS: PCP Internal Medicine; Visit Provider Internal Medicine
DX: C16.9 Malignant neoplasm of stomach, unspecified (principal)
CPT/HCPCS: 71260; 74177; 82565; Q9967

== ENCOUNTER 2023-09-10 13:02 | Outpatient (AMB) | payer OTHER, SELFPAY ==
[2023-09-10 13:09] VITALS: BP 121/77; PULSE 67; BMI 31.9
--- NOTE | 2023-09-10 13:09 | A.OFFVIS_ITS ---
Intake Vital Signs 09/10/23 13:09 Height 5 ft 3 in Weight 179 lb 14.355 oz BMI 31.9 BP 121/77 Blood Pressure Location Lt brachial Position Sitting Pulse 67 Intake Visit Reasons: 6 month follow up Intake Note: Farntz returns to in office 6 months follow up of iron deficiency anemia. CC: The patient c/o lower abdominal pain that comes and goes, dizziness, and imbalance. Denies other GI symptoms today. 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 Accompanied by: Self / Same As Patient Allergies No Known Allergies [No Known Allergies*] Allergy (Verified 09/10/23 13:22) Medication List - Last Reconciled 09/10/23 by Trenton Mueller MD amlodipine (Norvasc) 10 mg PO DAILY atorvastatin 20 mg PO BEDTIME calcium polycarbophil 1,250 mg PO DAILY carvedilol 12.5 mg PO BID cyanocobalamin (vitamin B-12) 1,000 mcg PO DAILY dapagliflozin propanediol (Farxiga) 10 mg PO DAILY ferrous sulfate 325 mg PO BID glipizide ER (Glucotrol XL) 10 mg PO DAILY hydrochlorothiazide 25 mg PO DAILY insulin glargine (Lantus Solostar U-100 Insulin) 30 units subcut DAILY lidocaine 5% 1 patch topical DAILY lisinopril 30 mg PO DAILY mirtazapine 15 mg PO BEDTIME olmesartan 5 mg PO DAILY HPI 6 month follow up HPI Details GI Clinic visit for this 73 year old [place] Islander-speaking male followed in GI for Gastric adenoca (diagnosed in 07/[address] Ferrera in Oncology), 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 Abdominal CT scan showed: 1. A cause for the patient's abdominal pain and nausea has not been found. 2. Incidental note made of an enlarged fatty liver, stable benignhepatic cysts, bilateral nonobstructing nephrolithiasis, prior partial gastrectomy with gastrojejunal anastomosis, mild BPH and degenerative changes in the spine. ?LABS IN [facility]: 11/22/19 H&H of 10.1 and 33.7, platelet 257, INR 1, normal LFTs, CEA 1.8 ? 06/28/19 2/3 stool occult blood were positive. ? IMAGING STUDIES:09/07/[address] scan showed: No CT evidence of metastatic disease chest, abdomen and pelvis. Stable postoperative stomach, patient with history of gastric cancer. Redemonstration enlarged heterogeneous thyroid with possible right lower lobe nodule for which ultrasound was previously recommended but to my knowledge has not been performed. 3-4mm distal right ureteral calculus wit hout associated proximal hydroureteronephrosis. ?ENDOSCOPIC STUDIES: 01/23/23 COLONOSCOPY SHOWED: Three small polyps removed Moderate diverticulosis seen in the sigmoid colon Moderate hemorrhoids on retroflexed exam. Plan: Repeat Colonoscopy interval based on path results - in 3 years if polyps are adenomatous and 10 years if polyps are hyperplastic (needs adult colonoscope for future colonoscopies and bisacodyl tablets daily starting 5 days prior to colonoscopy appointment). 10/24/22 EGD AND COLON SHOWED: Endoscopy Findings: STOMACH: Diffuse gastric erythema - biopsies were obtained from the gastric body.? Normal appearing gary en Y anastomosis at 50 cms - biopsies were obtained from the anastomosis. Colonoscopy Findings: Procedure was discontinued due to poor prep Plan: Pt will be rescheduled for Colonoscopy after re-discussing the prep with the pt 09/30/21 EGD SHOWED: STOMACH: Diffuse gastric erythema - biopsies were obtained from the gastric body.? Normal appearing gary en Y anastomosis at 50 cms - biopsies were obtained from the anastomosis. A 2 cms linear erosion in the gastric body along the greater curvature? - biopsied. BIOPSIES SHOWED: A.? Stomach, anastomosis, biopsy:? Mixed gastric and small intestinal mucosa with chronic active inflammation; no Helicobacter organisms identified. B.? Stomach, body greater curvature, biopsy:? Oxyntic mucosa with moderate chronic inactive inflammation; no Helicobacter organisms seen. C.? Stomach, body lesser curvature, biopsy:? Oxyntic mucosa with moderate chronic inactive inflammation; no Helicobacter organisms seen. D.? Stomach, erosion, biopsy:? Oxyntic mucosa with mild chronic, focally active, inflammation; no Helicobacter organisms seen. COMMENT: No malignancy is identified. 07/2019 EGD AND COLON SHOWED:? STOMA CH: Gastritis and a 2 cms pre-pyloric ulcer ? Colonoscopy Two medium-sized adenomatous polyps (one was 10 mm in size) were removed and large hemorrhoids were detected on retroflexed exam. ? Iron def anemia likely related to gastric ulcer - biopsies obtained to r ule out recurrent GIST. ? Repeat Colonoscopy interval based on path results - in 3-5 years if polyps are adenomatous and 10 years if polyps are hyperplastic. ? BIOPSIES SHOWED: ? A. Small bowel, biopsy: Duodenal mucosa within normal limits. ? B. Stomach, ulcer, biopsy: Adenocarcinoma, moderate-poorly differentiated. ? C. Stomach, antrum, biopsy: Antral-type mucosa with moderate chronic inactive inflammation and intestinal metaplasia; no dysplasia seen; no Helicobacter organisms seen. ? D. Colon, transverse, polypectomy: Fragments of tubular adenoma; no high grade dysplasia or carcinoma seen. ? E. Colon, sigmoid, polypectomy: Fragments of tubular adenoma; no high grade dysplasia or carcinoma seen. ? F. Rectum, polypectomy: Hyperplastic mucosal polyp. ? COMMENT: HER2 immunostain is being performed on the gastric adenocarcinoma; results will be addended. ? TODAY'S VISIT ? 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 CC: The patient c/o lower abdominal pain that comes and goes Feeling regular Notes intermittent lower abd pain which comes and goes Complains of left sided abdominal pain which is constant. Takes pain medication which helps the pain briefly and then pain recurs. Denies fever or chills. Hx of renal stones - this pain is different. Has a BM twice a day - denies hard stools or straining. PAST VISIT: Left sided abd pain for the past month which comes and goes and can last for 30 or 45 minutes. Pain is 8/10 in inetnsity and feels like pressure. Can have pain with eating and while lying down. Denies recent constipation or diarrhea. Denies wt loss Appetite is normal Continues to have hoarseness EGD and biopsy results reviewed with the pt. 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 Denies cough , sore throat or SOB. Denies heartburn, dysphagia or abdominal pain Taking medications for constipation and has a BMs are variable. Denies constipation ? ? Complains of constipation related to oral iron. On some days he feels bloated and unable to eat any more after he takes a tablespoonful of rice. Denies heartburn or dysphagia. Takes stool softeners prn for constipation which are helpful? ? ? EGD results reviewed. ?Finished XRT and declined additional chemo. ?? ? I am doing good . ? Appetite is good and weight is stable between 142 & 149 lbs. ? ? ? Denies abdominal pain or constipation. ? At the last GI visit he reported his constipation has resolved and straining with stools has improved with taking fiber twice daily, patient states that he has normal bowel movements daily and had no issues at that time [facility] Medical History (Updated 09/10/23 @ 13:30 by Trenton Mueller MD) Diabetes History of gastrectomy History of colon polyps Gastrointestinal stromal tumor (GIST) (~2014) Gastric adenocarcinoma Hydrocele Renal calculi Gastritis Vitamin B12 deficiency Hypercholesterolemia Hypertension Depression Surgical History Hx of resection of stomach Hx of esophagogastroduodenoscopy Hx of endoscopy History of hernia repair History of back surgery (~2016) History of colonoscopy (~07/22/19) History of esophagogastroduodenoscopy (EGD) (07/22/19) Family History Father No problems noted. Mother History of cancer Social History Household Members: Spouse Housing: House Alcohol intake: former Patient Tobacco Use Status: Former Tobacco user Quit Date: 40 years ago Tobacco use type: Cigarette Years Smoked: 35 service: No Current occupational status: retired Review of Systems Const All systems reviewed & are unremarkable except as noted in HPI and below Physical Exam Vital Signs: BMI result Body Mass Index 31.9 Const General: healthy appearing and no acute distress Nutritional Appearance: obese Orientation/consciousness: patient oriented x3 Limitations: language barrier HEENT Head: Yes normal to inspection Ears: hearing grossly normal bilaterally Eyes Sclerae: sclerae normal Pupils: Equal, round and reactive pupils present Neck Neck: Yes normal visual inspection Chest Chest palpation & inspection: normal inspection of the chest Resp Effort & Inspection: normal respiratory effort Auscultation: clear to auscultation bilaterally Cardio Palpation: normal PMI Rate: regular rate Rhythm: regular rhythm Heart sounds: S1 normal heart sound present, S2 normal heart sound present and no murmurs GI Inspection: Yes obesity Palpation (GI): Soft to palpation, nontender and No hepatosplenomegaly present Auscultation: normal bowel sounds Rectal Exam - Male: Yes deferred Skin General skin exam: no rashes or lesions noted Neuro General: patient oriented x3, gait normal and moves all extremities Cranial nerves: Yes Equal, round and reactive pupils present Psych Appearance: grossly normal Mental Status: mental status grossly normal Assessment & Plan Assessment & Plan (1) Gastric adenocarcinoma: Code(s): C16.9 - Malignant neoplasm of stomach, unspecified (2) Vitamin B12 deficiency: Code(s): E53.8 - Deficiency of other specified B group vitamins (3) History of colon polyps: Comment: 07/28 Two medium sized adenomatous polyps were removed during colonoscopy. Repeat colonoscopy is advised in 3 years. 01/2023 Three polyps removed on FU colon - Fu advised in 3 yrs (due in 01/2026). Code(s): Z86.010 - Personal history of colonic polyps (4) Iron deficiency anemia: Code(s): D50.9 - Iron deficiency anemia, unspecified (5) Thyroid nodule: Code(s): E04.1 - Nontoxic single thyroid nodule Plan YM with diabetes, hypertension, hypercholesterolemia, vitamin B12 deficiency, ri ght renal calculi, hydrocele, history of GIST (status post removal in 2014) hospitalized in the past with worsening anemia. 07/22/19 Upper endoscopy showed a 2 cm pre-pyloric ulcer with narrowing of py lorus - adenocarcinoma on biopsies. ?Staging workup included PET-CT performed 09/01/2019 showed no evidence of metastatic disease. Focal SUV max of 3.9 noted along proximal duodenum without underlying CT abnormality. On 09/14/2019 he underwent exploratory laparotomy with lysis of adhesions, distal gastrectomy with omentectomy, end-to-side Gary-en-Y gastrojejunostomy. Pathology: Invasive adenocarcinoma, diffuse type, poorly differentiated with signet ring features. Tumor site in antrum/lesser curvature, size 1.6 x 1.1 x 0.5 cm, grade 3, tumor invades the muscularis propria. All margins negative for invasive carcinoma. Thirteen regional lymph nodes examined, 3 positive, lymphovascular invasion present, extensive. Perineural invasion present. Final pathological stage pT2 pN2. Stage II. HER2 IHC 2+, negative by FISH amplification ?Genetic screening for inherited cancer syndromes was negative for any germ line mutations. ? He started postoperative chemo/radiation (bolus and infusional 5 FU/le ucovorin) therapy on 10/26/2019. Two cycles of chemotherapy initially followed by concurrent chemo RT and 4 additional cycles of chemotherapy planned. He did not tolerate chemotherapy with radiation and declined post radiation chemotherapy.? He has agreed to be monitored with physical examination, blood work and imaging as deemed necessary. 10/2021 EGD showed normal appearing gary en Y anastomosis at 50 cms - biopsies obtained from the anastomosis were negative for malignancy and H pylori. Pt was advised to increase pantoprazole to 40 mg twice daily. 10/2022 EGD (FU of Gastric cancer) and same day colonoscopy (FU of colon polyps) were performed in results as noted above 11/27/22 PT complains of lower abdominal pain and advised to schedule an Abd- Pelvic CT scan. 01/2023 Colonoscopy was performed and three polyps were removed 09/07/[address] scan showed: No CT evidence of metastatic disease chest, abdomen and pelvis. Stable postoperative stomach, patient with history of gastric cancer. Redemonstration enlarged heterogeneous thyroid with possible right lower lobe nodule for which ultrasound was previously recommended but to my knowledge has not been performed. Order placed for thyroid ultrasound Pt will be scheduled for an EGD for FU of Gastric Ca - next available Follow-up in 6 month Orders: Orders US thyroid Today E04.1 - Nontoxic single thyroid nodule Coding Level of Care Code Est Pt Level 4 (84414) Diagnoses Gastric adenocarcinoma C16.9 Vitamin B12 deficiency E53.8 History of colon polyps Z86.010 Iron deficiency anemia D50.9 Thyroid nodule E04.1 Time Spent (min) 21
== END 2023-09-10 13:46 | disposition home or self-care (01) ==
PROVIDERS: PCP Internal Medicine; Visit Provider Internal Medicine Gastroenterology
DX: C16.9 Malignant neoplasm of stomach, unspecified (principal); E53.8 Deficiency of other specified B group vitamins; Z86.010 Personal history of colon polyps; D50.9 Iron deficiency anemia, unspecified; E04.1 Nontoxic single thyroid nodule
CPT/HCPCS: 99214

== ENCOUNTER → 2023-09-10 13:02 | Outpatient (BNVA) | payer OTHER, SELFPAY | PROVIDERS: PCP Internal Medicine; Visit Provider Internal Medicine Gastroenterology | DX: C16.9 Malignant neoplasm of stomach, unspecified (principal); E53.8 Deficiency of other specified B group vitamins; E04.1 Nontoxic single thyroid nodule; D50.9 Iron deficiency anemia, unspecified; Z86.010 Personal history of colon polyps | CPT/HCPCS: 99212 ==

== ENCOUNTER 2023-09-22 14:58 | Outpatient (REF) | payer OTHER, SELFPAY ==
--- NOTE | ~2023-09-22 | US_ITS ---
EXAMINATION: US THYROID CLINICAL INFORMATION: Nontoxic single thyroid nodule. COMPARISON: None available. TECHNIQUE: Linear transducer grayscale and color Doppler examination with attention to the region of the thyroid. FINDINGS: SIZE: Measurements of the thyroid lobes and nodules are given in sagittal, anteroposterior and transverse dimensions respectively. Right Thyroid Lobe: 4.8 x 2.6 x 2.6 cm, volume 17.0 mL. Parenchyma: The gland echotexture is homogeneous. Thyroid vascularity is normal. Left Thyroid Lobe: 4.2 x 2.1 x 2.2 cm, volume 10.1 mL. Parenchyma: The gland echotexture is homogeneous. Thyroid vascularity is normal. Isthmus: 0.6 cm in maximum AP dimension. Estimated total number of nodules greater than or equal to 1 cm: 2. [employer] nodules are described as follows: 1. Location: Right mid/inferior. Size: 4.0 x 2.0 x 2.3 cm, volume 9.5 mL. Please note that margins, particularly posteriorly, of this nodule are difficult to fully visualize and therefore measurements are approximate. Nodule characteristics: Composition: Solid/almost completely solid (2). Echogenicity: Hypoechoic (2). Shape: Not taller than wide (0). Margins: Smooth (0). Echogenic Foci: None (0). ACR TI-RADS total points: 4 ACR TI-RADS category: 4 2. Location: Right inferior. Size: 1.3 x 0.7 x 1.3 cm, volume 0.6 mL. Nodule characteristics: Composition: Solid (2). Echogenicity: Hypoechoic (2). Shape: Not taller than wide (0). Margins: Smooth (0). Echogenic Foci: None (0). ACR TI-RADS total points: 4 ACR TI-RADS category: 4 3. Location: Right inferior lateral. Size: 0.7 x 0.4 x 1.0 cm, volume 0.2 mL. Nodule characteristics: Composition: Solid/almost completely solid (2). Echogenicity: Isoechoic (1). Shape: Not taller than wide (0). Margins: Smooth (0). Echogenic Foci: None (0). ACR TI-RADS total points: 3 ACR TI-RADS category: 3 4. Location: Right inferior. Size: 0.6 x 0.4 x 0.6 cm, volume 0.07 mL. Nodule characteristics: Composition: Solid/almost completely solid (2). Echogenicity: Isoechoic (1). Shape: Not taller than wide (0). Margins: Smooth (0). Echogenic Foci: None (0). ACR TI-RADS total points: 3 ACR TI-RADS category: 3 NODES: No lymphadenopathy is seen in the tissue surrounding the thyroid gland. US/US thyroid IMPRESSION: A 4.0 cm right [id number] TR 4 thyroid nodule meets criteria for biopsy. Fine-needle aspiration recommended. This study was presented today September 29, 2023 for interpretation. PSA staff will provide results to referring provider at this time. ACR TI-RADS RECOMMENDATION REFERENCE: Ultrasound-guided fine-needle aspiration, followup ultrasound, no further follow up. * TR1 (0 point) and TR2 (2 points): No FNA or follow up. * TR3 (3 points): FNA if more than or equal to 2.5 cm in maximum dimension, followup ultrasound in 1, 3 and 5 years if 1.5 to 2.4 cm in maximum dimension. * TR4 (4-6 points): FNA if more than or equal to 1.5 cm in maximum dimension, followup ultrasound in 1, 2, 3 and 5 years if 1 to 1.4 cm in maximum dimension. * TR5 (more than or equal to 7 points): FNA if more than or equal to 1 cm in maximum dimension, followup ultrasound every year for 5 years if 0.5 to 0.9 cm in maximum dimension. * TR3, TR4 or TR5 nodules that are below the size threshold for followup receive no follow up.
== END 2023-09-22 14:59 | disposition home or self-care (01) ==
LOC: HO.US 14:58
PROVIDERS: PCP Internal Medicine; Visit Provider Internal Medicine Gastroenterology
DX: E04.1 Nontoxic single thyroid nodule (principal)
CPT/HCPCS: 76536

== ENCOUNTER 2023-10-21 13:58 | Outpatient (REF) | payer OTHER, SELFPAY ==
--- NOTE | ~2023-10-21 | US_ITS ---
Ultrasound-guided thyroid nodule fine needle aspiration Indication: Right lobe 4.0 cm midpole thyroid nodule Procedure: Informed consent was obtained from the patient prior to the procedure. During this process, the procedure and potential alternatives were explained, along with the intended outcome and benefits. The risks of the procedure, as well as the risks of not doing the procedure, were discussed. The patient was given the opportunity to ask questions regarding the procedure and appeared competent to make medical decisions. A signed consent form which documents this discussion was placed in the medical record. A timeout was performed in the room. The patient was placed in a supine position with the neck extended. The right side of the neck and chest was prepped and draped in routine sterile fashion. 1% lidocaine was used as anesthetic. Under real-time ultrasound guidance, a 25-gauge needle was placed into the nodule and aspiration was performed. A total of 3 aspirations were performed. The specimens were placed in CytoLyt and and the Affirma bottle. Postprocedure images showed no hematoma. A Band-Aid was applied to the access site. The patient tolerated the procedure well with no immediate complications. Permanent ultrasound images were archived to the procedure. US/US biopsy thyroid Impression: Right thyroid nodule fine-needle aspiration This procedure was performed by Sanjay Bernardo PA-C, and directly supervised by Dr. Sim
[2023-10-21] MEDS: Lidocaine HCl 1 % MPF 5 ML VIAL SUBCUT (15:29)
== END 2023-10-21 13:59 | disposition home or self-care (01) ==
LOC: HO.US 13:58
PROVIDERS: PCP Internal Medicine; Visit Provider Internal Medicine
DX: E04.1 Nontoxic single thyroid nodule (principal)
CPT/HCPCS: 10005; 88173; 88305

== ENCOUNTER → 2023-10-21 13:59 | Outpatient (BNV) | payer OTHER, SELFPAY | PROVIDERS: PCP Internal Medicine; Visit Provider Physician Assistant Surgical | DX: E04.1 Nontoxic single thyroid nodule (principal) | CPT/HCPCS: 10005 ==

== ENCOUNTER 2023-11-26 12:16 | Outpatient (REF) | payer OTHER, SELFPAY ==
[2023-11-26 13:07] LABS: MANUAL DIFF FLAG NO
[2023-11-26 13:21] LABS: Basophils Absolute Auto 0.1 X10*3/uL (0.0-0.2); Basophils Percent Auto 0.7 % (0-2); Eosinophils Absolute Auto 0.4 X10*3/uL (0.0-0.4); Eosinophils Percent Auto 4.4 % (0-4); Hematocrit 38.3 % (42.0-52.0); Hemoglobin 12.4 g/dl (14.0-18.0); Imm Gran Abs Auto 0.03 X10*3/uL (0.00-0.03); Imm Gran Pct Auto 0.3 % (0.0-0.4); Lymphocytes Absolute Auto 2.6 X10*3/uL (1.2-4.9); Lymphocytes Percent Auto 26.5 % (20-40); Mean Corpuscular HGB Conc 32.4 g/dl (31.0-36.0); Mean Corpuscular Hemoglobin 27.9 pg (27.0-33.0); Mean Corpuscular Volume 86.1 fL (80.0-98.0); Mean Platelet Volume 9.8 fL (9.4-12.4); Monocytes Absolute Auto 1.1 X10*3/uL (0.1-1.2); Monocytes Percent Auto 11.1 % (2-11); Neutrophils Absolute Auto 5.6 x10*3/uL (2.0-8.3); Platelet Count 320 X10*3/uL (160-400); Red Blood Count 4.45 X10*6/uL (4.60-5.80); Red Cell Distribution Width 14.9 % (11.0-16.0); White Blood Count 9.9 X10*3/uL (4.8-10.8)
[2023-11-26 13:44] LABS: Anion Gap 13 (12-20); Blood Urea Nitrogen 24 mg/dL (9-16); Calcium 9.1 mg/dL (8.4-10.2); Carbon Dioxide 25 mmol/L (22-29); Chloride 102 mmol/L (96-108); Estimated Glomerular Filt Rate 33; Potassium 4.3 mmol/L (3.3-5.1); Sodium 136 mmol/L (135-145)
[2023-11-26 14:10] LABS: Glucose Random 368 mg/dL (60-115)
== END 2023-11-26 12:17 | disposition home or self-care (01) ==
LOC: HO.HHCL 12:16
PROVIDERS: Visit Provider Internal Medicine
DX: Z01.818 Encounter for other preprocedural examination (principal)
CPT/HCPCS: 36415; 80048; 85025

== ENCOUNTER 2024-01-01 15:00 | Outpatient (AMB) | payer OTHER, SELFPAY ==
--- NOTE | 2024-01-01 15:10 | HO.NEPHOV ---
Vital Signs 01/01/24 15:11 Height 5 ft 3 in Weight 174 lb BMI 30.8 BP 100/60 Blood Pressure Location Lt brachial Position Sitting Pulse 68 Pulse Source Pulse Oximeter Pulse Oximetry (%) 96 Oxygen Delivery Method Room Air Intake Visit Reasons: Acute Renal Failure / CKD/ LVM Hospital Cleaner Required: Yes Hospital Cleaner Services: Hospital Cleaner Present Accompanied by: Self / Same As Patient Allergies No Known Allergies [No Known Allergies*] Allergy (Verified 01/01/24 15:13) HPI Comments Details: I had the pleasure of seeing Frantz for abnormal renal functions. He is a longstanding diabetic with uncontrolled blood sugars and hemoglobin A1c. He has history of gastric cancer and was given chemotherapy. He has no history of proteinuria. He denies retinopathy, coronary artery disease, CVA, CHF, peripheral arterial disease. He has been taking THIAGO-inhibitor, olmesartan, diuretics as well as Farxiga. His serum creatinine has been steadily going up over time. He denies taking excessive nonsteroidal anti-inflammatories. He does not have any nausea, vomiting, diarrhea, dizziness, shortness of breath, proximal nocturnal dyspnea, orthopnea, pedal edema, hematuria, joint swellings, sinusitis, recent sore throat, recent antibiotic intake, skin rashes, photosensitivity. His recent serum creatinine has been 2.01. He has history of renal calculus but does not have any flank pain or hematuria. He denied any new active complaints at the time of this office visit. COUNT INCLUDES [facility] Medical History (Updated 01/05/24 @ 09:20 by Sanjay Grace MD) Diabetes History of gastrectomy History of colon polyps Gastrointestinal stromal tumor (GIST) (~2014) Gastric adenocarcinoma Hydrocele Renal calculi Gastritis Vitamin B12 deficiency Hypercholesterolemia Hypertension Depression Surgical History Hx of resection of stomach Hx of esophagogastroduodenoscopy Hx of endoscopy History of hernia repair History of back surgery (~2016) History of colonoscopy (~07/22/19) History of esophagogastroduodenoscopy (EGD) (07/22/19) Family History Father No problems noted. Mother History of cancer Social History Household Members: Spouse Housing: House Alcohol intake: former Patient Tobacco Use Status: Former Tobacco user Tobacco use type: Cigarette Years Smoked: 35 service: No Current occupational status: retired Review of Systems Const All systems reviewed & are unremarkable except as noted in HPI and below Physical Exam Vital Signs: Last Vital Signs Pulse 68 01/01/24 15:11 BP 100/60 01/01/24 15:11 Pulse Ox 96 01/01/24 15:11 Oxygen Delivery Method Room Air 01/01/24 15:11 BMI result Body Mass Index 30.8 Const General: comfortable and no acute distress Orientation/consciousness: patient oriented x3 HEENT Head: Yes normocephalic Mouth: Normal oral and palatal mucosa present Eyes EOM: EOMs intact bilaterally Neck Neck: Yes supple Resp Auscultation: clear to auscultation bilaterally Cardio Jugular venous distension: no JVD Rate: regular rate GI Palpation (GI): Soft to palpation Auscultation: normal bowel sounds General: Yes no CVA tenderness Back/Spine/Pelvis Back: no CVA tenderness Skin General skin exam: no rashes or lesions noted Neuro General: patient oriented x3 and moves all extremities Extrem General: Yes no pedal edema Results Reviewed Nephrology Results: Hgb 12.4 g/dl (14.0-18.0) L 11/26/23 WBC 9.9 X10*3/uL (4.8-10.8) 11/26/23 Plt Count 320 X10*3/uL (160-400) 11/26/23 Sodium 136 mmol/L (135-145) 11/26/23 Potassium 4.3 mmol/L (3.3-5.1) 11/26/23 Chloride 102 mmol/L (96-108) 11/26/23 Carbon Dioxide 25 mmol/L (22-29) 11/26/23 BUN 24 mg/dL (9-16) H 11/26/23 Creatinine 2.01 mg/dL (0.5-1.4) H 11/26/23 Calcium 9.1 mg/dL (8.4-10.2) 11/26/23 Assessment & Plan Assessment & Plan (1) RAKESH (acute kidney injury): Code(s): N17.9 - Acute kidney failure, unspecified Category: Medical (2) CKD stage 3a, GFR 45-59 ml/min: Code(s): N18.31 - Chronic kidney disease, stage 3a Category: Medical (3) Hypertension: Code(s): I10 - Essential (primary) hypertension Category: Medical Qualifiers: Hypertension type: primary hypertension Qualified Code(s): I10 - Essential (primary) hypertension (4) Renal calculi: Code(s): N20.0 - Calculus of kidney Category: Medical Plan Frantz has a chronic kidney disease for a long time. His serum creatinine has gotten worse recently. He has history of renal calculus. He has been taking THIAGO-inhibitor, olmesartan, hydrochlorothiazide and Farxiga. His blood sugar control has not been optimal. He has history of gastric cancer but never had proteinuria. He is not clinically hypervolemic. He has no nausea, vomiting or diarrhea. He has not taken any recent antibiotic but denies taking regular PPI. I have discontinued his olmesartan. I encouraged him not to take any nonsteroidal anti-inflammatories and maintain good hydration. I have ordered imaging studies and follow-up blood work. He may need a renal biopsy pending evolving data. I did not make any other medication changes today. Time and taken to retrieve all the data, patient encounter, documentation 63 minutes. All questions answered. Follow-up appointment given. Orders: Orders AMB Urinalysis Dipstick 1 Month N17.9 - Acute kidney failure, unspecified, Z13.9 - Encounter for screening, unspecified Myeloperoxidase Antibody 1 Month N17.9 - Acute kidney failure, unspecified Complement C3 1 Month N17.9 - Acute kidney failure, unspecified Immunofixation Pnl, Serum 1 Month N17.9 - Acute kidney failure, unspecified Phospholipase A2 Receptor Pnl 1 Month N17.9 - Acute kidney failure, unspecified Blood Urea Nitrogen 1 Month N17.9 - Acute kidney failure, unspecified Electrolytes 1 Month N17.9 - Acute kidney failure, unspecified Calcium 1 Month N17.9 - Acute kidney failure, unspecified Protein Creatinine Ratio, Ur 1 Month N17.9 - Acute kidney failure, unspecified Proteinase 3 PR3 Antibodies 1 Month N17.9 - Acute kidney failure, unspecified Anti Glomerular Basement Memb 1 Month N17.9 - Acute kidney failure, unspecified Complement C4 1 Month N17.9 - Acute kidney failure, unspecified Creatinine 1 Month N17.9 - Acute kidney failure, unspecified US renal doppler Today I10 - Essential (primary) hypertension, N18.31 - Chronic kidney disease, stage 3a, N20.0 - Calculus of kidney US renal BI Today N17.9 - Acute kidney failure, unspecified Coding Level of Care Code New Pt Level 5 (29613) Diagnoses RAKESH (acute kidney injury) N17.9 CKD stage 3a, GFR 45-59 ml/min N18.31 Primary hypertension I10 Hypertension type: primary hypertension Renal calculi N20.0
[2024-01-01 15:11] VITALS: BP 100/60; PULSE 68; O2SAT 96; BMI 30.8
== END 2024-01-01 15:37 | disposition home or self-care (01) ==
PROVIDERS: PCP Internal Medicine; Referring Provider Internal Medicine; Visit Provider Internal Medicine Nephrology
DX: N17.9 Acute kidney failure, unspecified (principal); I12.9 Hypertensive chronic kidney disease with stage 1 through stage 4 chronic kidney disease, or unspecified chronic kidney disease; N18.31 Chronic kidney disease, stage 3a; N20.0 Calculus of kidney
CPT/HCPCS: 99205

== ENCOUNTER → 2024-01-01 15:00 | Outpatient (BNVA) | payer OTHER, SELFPAY | PROVIDERS: PCP Internal Medicine; Referring Provider Internal Medicine; Visit Provider Internal Medicine Nephrology | DX: E11.22 Type 2 diabetes mellitus with diabetic chronic kidney disease (principal); I12.9 Hypertensive chronic kidney disease with stage 1 through stage 4 chronic kidney disease, or unspecified chronic kidney disease; N18.31 Chronic kidney disease, stage 3a; N17.9 Acute kidney failure, unspecified; N20.0 Calculus of kidney | CPT/HCPCS: 99202 ==

== ENCOUNTER 2024-01-13 09:29 | Outpatient (REF) | payer OTHER, SELFPAY ==
--- NOTE | ~2024-01-13 | US_ITS ---
EXAMINATION: ULTRASOUND RENAL WITH DOPPLER CLINICAL INFORMATION: Chronic kidney disease stage III a. COMPARISON: None. TECHNIQUE: Real-time grayscale, color Doppler, and duplex Doppler evaluation of the kidneys and renal vasculature was performed. FINDINGS: RENAL MEASUREMENTS: Right: 10.8 x 4.7 x 4.8 cm (Sag x AP x TV) Left: 11.5 x 4.8 x 4.0 cm (Sag x AP x TV) The renal parenchyma appears normal. There are persistent lobulations. No hydronephrosis or nephrolithiasis. Multiple simple bilateral renal cysts are seen, the largest at the upper pole the right kidney measuring 3.7 cm and at the upper pole of the left kidney 2.6 cm. These require no imaging follow-up. DOPPLER INTERROGATION: Aorta: 49.6 cm/sec Right Main Renal Artery: Proximal: 219.0 cm/sec Mid: 95.3 cm/sec Distal: 86.8 cm/sec Left Main Renal Artery: Proximal: 92.9 cm/sec Mid: 146.0 cm/sec Distal: 159.0 cm/sec Renal-Aortic Ratio (RAR): Right: 4.4 Left: 3.2 Bilateral upper pole, interpolar and lower pole segmental arteriolar resistive indices are within normal limits. Bilateral upper pole, interpolar and lower pole segmental arteriolar pulse doppler waveforms are unremarkable, with uniformly rapid upstrokes and no parvus et tardus configuration. US/US renal doppler IMPRESSION: 1. There is hemodynamically significant right renal artery stenosis. 2. No hemodynamically significant left renal artery stenosis is seen.
--- NOTE | ~2024-01-13 | US_ITS ---
EXAMINATION: ULTRASOUND RENAL WITH DOPPLER CLINICAL INFORMATION: Chronic kidney disease stage III a. COMPARISON: None. TECHNIQUE: Real-time grayscale, color Doppler, and duplex Doppler evaluation of the kidneys and renal vasculature was performed. FINDINGS: RENAL MEASUREMENTS: Right: 10.8 x 4.7 x 4.8 cm (Sag x AP x TV) Left: 11.5 x 4.8 x 4.0 cm (Sag x AP x TV) The renal parenchyma appears normal. There are persistent lobulations. No hydronephrosis or nephrolithiasis. Multiple simple bilateral renal cysts are seen, the largest at the upper pole the right kidney measuring 3.7 cm and at the upper pole of the left kidney 2.6 cm. These require no imaging follow-up. DOPPLER INTERROGATION: Aorta: 49.6 cm/sec Right Main Renal Artery: Proximal: 219.0 cm/sec Mid: 95.3 cm/sec Distal: 86.8 cm/sec Left Main Renal Artery: Proximal: 92.9 cm/sec Mid: 146.0 cm/sec Distal: 159.0 cm/sec Renal-Aortic Ratio (RAR): Right: 4.4 Left: 3.2 Bilateral upper pole, interpolar and lower pole segmental arteriolar resistive indices are within normal limits. Bilateral upper pole, interpolar and lower pole segmental arteriolar pulse doppler waveforms are unremarkable, with uniformly rapid upstrokes and no parvus et tardus configuration. US/US renal BI IMPRESSION: 1. There is hemodynamically significant right renal artery stenosis. 2. No hemodynamically significant left renal artery stenosis is seen.
== END 2024-01-13 09:30 | disposition home or self-care (01) ==
LOC: HO.US 09:29
PROVIDERS: PCP Internal Medicine; Visit Provider Internal Medicine Nephrology
DX: N20.0 Calculus of kidney (principal); I12.9 Hypertensive chronic kidney disease with stage 1 through stage 4 chronic kidney disease, or unspecified chronic kidney disease; N18.31 Chronic kidney disease, stage 3a; N17.9 Acute kidney failure, unspecified
CPT/HCPCS: 76775; 93975

== ENCOUNTER 2024-02-02 08:58 | Outpatient (REF) | payer OTHER, SELFPAY ==
[2024-02-02 10:40] LABS: Anion Gap 12 (12-20); Blood Urea Nitrogen 18 mg/dL (9-16); Calcium 9.2 mg/dL (8.4-10.2); Carbon Dioxide 26 mmol/L (22-29); Chloride 106 mmol/L (96-108); Estimated Glomerular Filt Rate 54; Potassium 3.8 mmol/L (3.3-5.1); Sodium 140 mmol/L (135-145)
[2024-02-02 11:10] LABS: Creatinine Urine 114.36 mg/dL; Protein/Creatinine Ratio, Ur 0.18 (<0.2); Total Protein Urine Random 21 mg/dL (<12)
[2024-02-03 22:54] LABS: Complement C3 95 mg/dL (82-185)
[2024-02-03 23:03] LABS: Anti Glomerular Basement Memb <1.0 AI; Myeloperoxidase Antibody <1.0 AI; Proteinase 3 PR3 Antibodies <1.0 AI
[2024-02-10 21:33] LABS: IgA 590 mg/dL (70-320); IgG 1282 mg/dL (600-1540); IgM 313 mg/dL (50-300)
[2024-02-11 23:33] LABS: Phospholipase A2 IgG ELISA <4 RU/mL; Phospholipase A2 IgG IFA NEGATIVE (NEGATIVE)
== END 2024-02-02 08:59 | disposition home or self-care (01) ==
LOC: HO.LAB 08:58
PROVIDERS: PCP Internal Medicine; Visit Provider Internal Medicine Nephrology
DX: N17.9 Acute kidney failure, unspecified (principal)
CPT/HCPCS: 36415; 80051; 82310; 82565; 82570; 82784; 83520; 84156; 84520; 86021; 86160; 86255; 86334

== ENCOUNTER 2024-02-17 15:12 | Outpatient (AMB) | payer OTHER, SELFPAY ==
--- NOTE | 2024-02-17 15:22 | HO.NEPHOV ---
Vital Signs 02/17/24 15:25 Height 5 ft 3 in Weight 176 lb BMI 31.2 BP 120/70 Blood Pressure Location Rt brachial Position Sitting Pulse 75 Pulse Source Pulse Oximeter Pulse Oximetry (%) 96 Oxygen Delivery Method Room Air Intake Visit Reasons: 1 mon follow up- Conf Camp Dining Room Attendant Required: Yes Camp Dining Room Attendant Services: Camp Dining Room Attendant Present Camp Dining Room Attendant Name: Vida [id number] Accompanied by: Self / Same As Patient Allergies No Known Allergies [No Known Allergies*] Allergy (Verified 02/17/24 15:27) HPI Comments Details: I had the pleasure of seeing Frantz for CKD. He is a longstanding diabetic with uncontrolled blood sugars and hemoglobin A1c. He has history of gastric cancer and was given chemotherapy. He has no history of proteinuria. He denies retinopathy, coronary artery disease, CVA, CHF, peripheral arterial disease. He has been taking THIAGO-inhibitor, olmesartan, diuretics as well as Farxiga. He denies taking excessive nonsteroidal anti-inflammatories. He does not have any nausea, vomiting, diarrhea, dizziness, shortness of breath, proximal nocturnal dyspnea, orthopnea, pedal edema, hematuria, joint swellings, sinusitis, recent sore throat, recent antibiotic intake, skin rashes, photosensitivity. His recent serum creatinine has improved to 1.3. He has history of renal calculus but does not have any flank pain or hematuria. He denied any new active complaints at the time of this office visit [facility] Medical History (Updated 01/05/24 @ 09:20 by Sanjay Grace MD) Diabetes History of gastrectomy History of colon polyps Gastrointestinal stromal tumor (GIST) (~2014) Gastric adenocarcinoma Hydrocele Renal calculi Gastritis Vitamin B12 deficiency Hypercholesterolemia Hypertension Depression Surgical History Hx of resection of stomach Hx of esophagogastroduodenoscopy Hx of endoscopy History of hernia repair History of back surgery (~2016) History of colonoscopy (~07/22/19) History of esophagogastroduodenoscopy (EGD) (07/22/19) Family History Father No problems noted. Mother History of cancer Social History Household Members: Spouse Housing: House Alcohol intake: former Patient Tobacco Use Status: Former Tobacco user Tobacco use type: Cigarette Years Smoked: 35 service: No Current occupational status: retired Review of Systems Const All systems reviewed & are unremarkable except as noted in HPI and below Physical Exam Vital Signs: Last Vital Signs Pulse 75 02/17/24 15:25 BP 120/70 02/17/24 15:25 Pulse Ox 96 02/17/24 15:25 Oxygen Delivery Method Room Air 02/17/24 15:25 BMI result Body Mass Index 31.2 Const General: comfortable and no acute distress Orientation/consciousness: patient oriented x3 HEENT Head: Yes normocephalic Mouth: Normal oral and palatal mucosa present Eyes EOM: EOMs intact bilaterally Neck Neck: Yes supple Resp Auscultation: clear to auscultation bilaterally Cardio Jugular venous distension: no JVD Rate: regular rate GI Palpation (GI): Soft to palpation Auscultation: normal bowel sounds General: Yes no CVA tenderness Back/Spine/Pelvis Back: no CVA tenderness Skin General skin exam: no rashes or lesions noted Neuro General: patient oriented x3 and moves all extremities Extrem General: Yes no pedal edema Results Reviewed Nephrology Results: Hgb 12.4 g/dl (14.0-18.0) L 11/26/23 WBC 9.9 X10*3/uL (4.8-10.8) 11/26/23 Plt Count 320 X10*3/uL (160-400) 11/26/23 Sodium 140 mmol/L (135-145) 02/02/24 Potassium 3.8 mmol/L (3.3-5.1) 02/02/24 Chloride 106 mmol/L (96-108) 02/02/24 Carbon Dioxide 26 mmol/L (22-29) 02/02/24 BUN 18 mg/dL (9-16) H 02/02/24 Creatinine 1.31 mg/dL (0.5-1.4) 02/02/24 Calcium 9.2 mg/dL (8.4-10.2) 02/02/24 Urine Creatinine 114.36 mg/dL 02/02/24 Protein/Creatinin Ratio 0.18 (<0.2) 02/02/24 Renal US 01/13/24 Assessment & Plan Assessment & Plan (1) Renal calculi: Code(s): N20.0 - Calculus of kidney Category: Medical (2) CKD stage 3a, GFR 45-59 ml/min: Code(s): N18.31 - Chronic kidney disease, stage 3a Category: Medical Plan Frantz has a chronic kidney disease for a long time. His serum creatinine has settled to baseline. He has history of renal calculus. He has been taking Farxiga. His olmesartan has been on hold since he had RAKESH. His blood sugar control has not been optimal. He has history of gastric cancer but never had proteinuria. He is not clinically hypervolemic. He has no nausea, vomiting or diarrhea. I encouraged him not to take any nonsteroidal anti-inflammatories and maintain good hydration. He does not need a renal biopsy now. I did not make any other medication changes today. All questions answered. Follow-up appointment given Orders: Orders Blood Urea Nitrogen 02/17/24 N18.31 - Chronic kidney disease, stage 3a Creatinine 02/17/24 N18.31 - Chronic kidney disease, stage 3a Electrolytes 02/17/24 N18.31 - Chronic kidney disease, stage 3a Coding Level of Care Code Est Pt Level 4 (50396) Diagnoses Renal calculi N20.0 CKD stage 3a, GFR 45-59 ml/min N18.31
[2024-02-17 15:25] VITALS: BP 120/70; PULSE 75; O2SAT 96; BMI 31.2
== END 2024-02-17 15:35 | disposition home or self-care (01) ==
PROVIDERS: PCP Internal Medicine; Visit Provider Internal Medicine Nephrology
DX: N20.0 Calculus of kidney (principal); N18.31 Chronic kidney disease, stage 3a
CPT/HCPCS: 99214

== ENCOUNTER → 2024-02-17 15:12 | Outpatient (BNVA) | payer OTHER, SELFPAY | PROVIDERS: PCP Internal Medicine; Visit Provider Internal Medicine Nephrology | DX: N18.31 Chronic kidney disease, stage 3a (principal); N20.0 Calculus of kidney | CPT/HCPCS: 99212 ==

== ENCOUNTER 2024-05-09 17:58 | Outpatient (REF) | payer OTHER, SELFPAY ==
[2024-05-09 18:28] LABS: Methadone Screen, Urine Not Detected (Not Detect)
== END 2024-05-09 17:59 | disposition home or self-care (01) ==
LOC: HO.HHCLNP 17:58
PROVIDERS: Visit Provider Internal Medicine
DX: M25.511 Pain in right shoulder (principal); G89.29 Other chronic pain
CPT/HCPCS: 36415; 80307

== ENCOUNTER 2024-05-18 13:11 | Outpatient (AMB) | payer OTHER, SELFPAY ==
--- NOTE | 2024-05-18 13:31 | HO.NEPHOV ---
Vital Signs 05/18/24 13:37 Height 5 ft 3 in Weight 165 lb 8 oz BMI 29.3 BP 90/54 L Blood Pressure Location Rt brachial Position Sitting Pulse 68 Pulse Source Pulse Oximeter Pulse Oximetry (%) 96 Oxygen Delivery Method Room Air Intake Visit Reasons: CKD/ Conf Acid Purification Equipment Operator Required: Yes Acid Purification Equipment Operator Language: Equal Employment Opportunity Officer Services: Acid Purification Equipment Operator Offered & Declined Information Interpreted: clinical only Accompanied by: Self / Same As Patient Allergies No Known Allergies [No Known Allergies*] Allergy (Verified 05/18/24 13:39) HPI Comments Details: Frantz was seen in follow up for CKD. He is a longstanding diabetic with uncontrolled blood sugars and high hemoglobin A1c. He has history of gastric cancer and was given chemotherapy. He has no history of proteinuria. He denies retinopathy, coronary artery disease, CVA, CHF, peripheral arterial disease. He has been taking THIAGO-inhibitor, olmesartan, diuretics as well as Farxiga. He denies taking excessive nonsteroidal anti-inflammatories. He does not have any nausea, vomiting, diarrhea, dizziness, shortness of breath, proximal nocturnal dyspnea, orthopnea, pedal edema, hematuria, joint swellings, sinusitis, recent sore throat, recent antibiotic intake, skin rashes, photosensitivity. His recent serum creatinine has improved to 1.3. He has history of renal calculus but does not have any flank pain or hematuria. He denied any new active complaints at the time of this office visit [facility] Medical History (Updated 01/05/24 @ 09:20 by Sanjay Grace MD) Diabetes History of gastrectomy History of colon polyps Gastrointestinal stromal tumor (GIST) (~2014) Gastric adenocarcinoma Hydrocele Renal calculi Gastritis Vitamin B12 deficiency Hypercholesterolemia Hypertension Depression Surgical History Hx of resection of stomach Hx of esophagogastroduodenoscopy Hx of endoscopy History of hernia repair History of back surgery (~2016) History of colonoscopy (~07/22/19) History of esophagogastroduodenoscopy (EGD) (07/22/19) Family History Father No problems noted. Mother History of cancer Social History Household Members: Spouse Housing: House Alcohol intake: former Patient Tobacco Use Status: Former Tobacco user Tobacco use type: Cigarette Years Smoked: 35 service: No Current occupational status: retired Review of Systems Const All systems reviewed & are unremarkable except as noted in HPI and below Physical Exam Vital Signs: Last Vital Signs Pulse 68 05/18/24 13:37 BP 90/54 L 05/18/24 13:37 Pulse Ox 96 05/18/24 13:37 Oxygen Delivery Method Room Air 05/18/24 13:37 BMI result Body Mass Index 29.3 Const General: comfortable and no acute distress Orientation/consciousness: patient oriented x3 HEENT Head: Yes normocephalic Mouth: Normal oral and palatal mucosa present Eyes EOM: EOMs intact bilaterally Neck Neck: Yes supple Resp Auscultation: clear to auscultation bilaterally Cardio Jugular venous distension: no JVD Rate: regular rate GI Palpation (GI): Soft to palpation Auscultation: normal bowel sounds General: Yes no CVA tenderness Back/Spine/Pelvis Back: no CVA tenderness Skin General skin exam: no rashes or lesions noted Neuro General: patient oriented x3 and moves all extremities Extrem General: Yes no pedal edema Results Reviewed Nephrology Results: Hgb 12.4 g/dl (14.0-18.0) L 11/26/23 WBC 9.9 X10*3/uL (4.8-10.8) 11/26/23 Plt Count 320 X10*3/uL (160-400) 11/26/23 Sodium 140 mmol/L (135-145) 02/02/24 Potassium 3.8 mmol/L (3.3-5.1) 02/02/24 Chloride 106 mmol/L (96-108) 02/02/24 Carbon Dioxide 26 mmol/L (22-29) 02/02/24 BUN 18 mg/dL (9-16) H 02/02/24 Creatinine 1.31 mg/dL (0.5-1.4) 02/02/24 Calcium 9.2 mg/dL (8.4-10.2) 02/02/24 Urine Creatinine 114.36 mg/dL 02/02/24 Protein/Creatinin Ratio 0.18 (<0.2) 02/02/24 Renal US 01/13/24 Assessment & Plan Assessment & Plan (1) CKD stage 3a, GFR 45-59 ml/min: Code(s): N18.31 - Chronic kidney disease, stage 3a Category: Medical (2) Hypertension: Code(s): I10 - Essential (primary) hypertension Category: Medical Qualifiers: Hypertension type: primary hypertension Qualified Code(s): I10 - Essential (primary) hypertension (3) Renal calculi: Code(s): N20.0 - Calculus of kidney Category: Medical Plan Frantz has a chronic kidney disease for a long time. His serum creatinine had settled to baseline. He was asked to repeat blood work today. He has history of renal calculus. He has been taking Farxiga. His olmesartan has been on hold since he had RAKESH, which I plan to restart at next visit if his serum creatinine is stable. His blood sugar control has not been optimal. He has history of gastric cancer but never had proteinuria. He is not clinically hypervolemic. He has no nausea, vomiting or diarrhea. I encouraged him not to take any nonsteroidal anti-inflammatories and maintain good hydration. He does not need a renal biopsy now. I did not make any other medication changes today. All questions answered. Follow-up appointment given Orders: Orders Electrolytes Today I10 - Essential (primary) hypertension, N18.31 - Chronic kidney disease, stage 3a, N20.0 - Calculus of kidney Blood Urea Nitrogen Today I10 - Essential (primary) hypertension, N18.31 - Chronic kidney disease, stage 3a, N20.0 - Calculus of kidney Creatinine Today I10 - Essential (primary) hypertension, N18.31 - Chronic kidney disease, stage 3a, N20.0 - Calculus of kidney Hemoglobin A1c 3 Months I10 - Essential (primary) hypertension, N18.31 - Chronic kidney disease, stage 3a, N20.0 - Calculus of kidney Electrolytes 3 Months I10 - Essential (primary) hypertension, N18.31 - Chronic kidney disease, stage 3a, N20.0 - Calculus of kidney Blood Urea Nitrogen 3 Months I10 - Essential (primary) hypertension, N18.31 - Chronic kidney disease, stage 3a, N20.0 - Calculus of kidney Creatinine 3 Months I10 - Essential (primary) hypertension, N18.31 - Chronic kidney disease, stage 3a, N20.0 - Calculus of kidney Protein Creatinine Ratio, Ur 3 Months I10 - Essential (primary) hypertension, N18.31 - Chronic kidney disease, stage 3a, N20.0 - Calculus of kidney Coding Level of Care Code Est Pt Level 4 (26528) Diagnoses CKD stage 3a, GFR 45-59 ml/min N18.31 Primary hypertension I10 Hypertension type: primary hypertension Renal calculi N20.0
[2024-05-18 13:37] VITALS: BP 90/54; PULSE 68; O2SAT 96; BMI 29.3
== END 2024-05-18 13:51 | disposition home or self-care (01) ==
PROVIDERS: PCP Internal Medicine; Visit Provider Internal Medicine Nephrology
DX: I12.9 Hypertensive chronic kidney disease with stage 1 through stage 4 chronic kidney disease, or unspecified chronic kidney disease (principal); N18.31 Chronic kidney disease, stage 3a; N20.0 Calculus of kidney
CPT/HCPCS: 99214

== ENCOUNTER → 2024-05-18 13:11 | Outpatient (BNVA) | payer OTHER, SELFPAY | PROVIDERS: PCP Internal Medicine; Visit Provider Internal Medicine Nephrology | DX: E11.22 Type 2 diabetes mellitus with diabetic chronic kidney disease (principal); I12.9 Hypertensive chronic kidney disease with stage 1 through stage 4 chronic kidney disease, or unspecified chronic kidney disease; N18.31 Chronic kidney disease, stage 3a; N20.0 Calculus of kidney | CPT/HCPCS: 99212 ==

== ENCOUNTER 2024-05-19 08:38 | Outpatient (REF) | payer OTHER, SELFPAY ==
[2024-05-19 09:35] LABS: Anion Gap 14 (12-20); Blood Urea Nitrogen 23 mg/dL (9-16); Carbon Dioxide 27 mmol/L (22-29); Chloride 106 mmol/L (96-108); Estimated Glomerular Filt Rate 59; Potassium 3.8 mmol/L (3.3-5.1); Sodium 143 mmol/L (135-145)
== END 2024-05-19 08:39 | disposition home or self-care (01) ==
LOC: HO.LAB 08:38
PROVIDERS: PCP Internal Medicine; Visit Provider Internal Medicine Nephrology
DX: I12.9 Hypertensive chronic kidney disease with stage 1 through stage 4 chronic kidney disease, or unspecified chronic kidney disease (principal); N18.31 Chronic kidney disease, stage 3a; N20.0 Calculus of kidney
CPT/HCPCS: 36415; 80051; 82565; 84520

== ENCOUNTER 2024-06-10 11:23 | Outpatient (REF) | payer OTHER, SELFPAY ==
[2024-06-10 13:09] LABS: MANUAL DIFF FLAG NO
[2024-06-10 13:15] LABS: Basophils Absolute Auto 0.1 X10*3/uL (0.0-0.2); Basophils Percent Auto 0.8 % (0-2); Eosinophils Absolute Auto 0.3 X10*3/uL (0.0-0.4); Eosinophils Percent Auto 2.9 % (0-4); Hematocrit 40.9 % (42.0-52.0); Hemoglobin 13.2 g/dl (14.0-18.0); Imm Gran Abs Auto 0.06 X10*3/uL (0.00-0.03); Imm Gran Pct Auto 0.6 % (0.0-0.4); Lymphocytes Absolute Auto 2.9 X10*3/uL (1.2-4.9); Lymphocytes Percent Auto 29.1 % (20-40); Mean Corpuscular HGB Conc 32.3 g/dl (31.0-36.0); Mean Corpuscular Hemoglobin 27.7 pg (27.0-33.0); Mean Corpuscular Volume 85.7 fL (80.0-98.0); Mean Platelet Volume 10.4 fL (9.4-12.4); Monocytes Absolute Auto 1.2 X10*3/uL (0.1-1.2); Monocytes Percent Auto 11.9 % (2-11); NRBC Pct Auto 0.2 /100WBC (0.0-0.2); Neutrophils Absolute Auto 5.4 x10*3/uL (2.0-8.3); Neutrophils Percent Auto 54.7 % (45-73); Platelet Count 306 X10*3/uL (160-400); Red Blood Count 4.77 X10*6/uL (4.60-5.80); Red Cell Distribution Width 16.7 % (11.0-16.0); White Blood Count 9.8 X10*3/uL (4.8-10.8)
[2024-06-10 13:52] LABS: Anion Gap 9 (12-20); Blood Urea Nitrogen 10 mg/dL (9-16); Carbon Dioxide 26 mmol/L (22-29); Chloride 107 mmol/L (96-108); Estimated Glomerular Filt Rate > 60; Ferritin 89 ng/mL (20-250); Potassium 4.1 mmol/L (3.3-5.1); Sodium 138 mmol/L (135-145); Unsaturated Iron Binding 218 ug/dL
[2024-06-10 14:01] LABS: Folate 17.5 ng/mL (> or = 4.0); Vitamin B12 1359 pg/mL (200-900)
[2024-06-10 15:14] LABS: Iron 65 mcg/dL (45-160); Percent Iron Saturation 23 % (15-50); Total Iron Binding Capacity 283 mcg/dL (228-428)
[2024-06-10 20:22] LABS: TSH reflex Free T4 1.22 uIU/mL (0.32-4.0)
[2024-06-11 04:18] LABS: HBc Num1 0.17 S/CO (0.00-0.79); HBsAGNum1 0.31 S/CO (0.00-0.99); Hepatitis A Antibody IgM 0.16 Index (0-0.79); Hepatitis B Core Antibody Nonreactive (Nonreactive); Hepatitis B Surface Antigen Negative (Negative); ~HepC Num1 0.08 S/CO (0.00-0.79); ~Hepatitis A Antibody IgM Nonreactive (Nonreactive); ~Hepatitis B Surface Antibody NONREACTIVE (Nonreactive); ~Hepatitis C Antibody Nonreactive (Nonreactive)
[2024-06-14 13:08] LABS: RPR Rapid Plasma Reagin NON-REACTIVE (NON-REACTIVE)
== END 2024-06-10 11:24 | disposition home or self-care (01) ==
LOC: HO.HHCL 11:23
PROVIDERS: Visit Provider Internal Medicine
DX: N18.31 Chronic kidney disease, stage 3a (principal); H81.90 Unspecified disorder of vestibular function, unspecified ear; I10 Essential (primary) hypertension; N20.0 Calculus of kidney
CPT/HCPCS: 36415; 80051; 82565; 82607; 82728; 82746; 83540; 84443; 84520; 85025; 86592; 86704; 86706; 86709; 86803; 87340

== ENCOUNTER 2024-06-24 09:37 | Emergency (ER) | payer OTHER, SELFPAY ==
--- NOTE | ~2024-06-24 | CT_ITS ---
EXAMINATION: CT ABDOMEN PELVIS WITHOUT IV CONTRAST HISTORY: RLQ pain WBC count 21 COMPARISON: Comparison is made with the prior examination dated 09/07/2023. TECHNIQUE: CT scan of the abdomen and pelvis was performed without contrast using standard departmental protocol. Coronal and sagittal reformatted images were generated and reviewed. Oral contrast material was not administered per department protocol. This CT exam was performed with one or more of the following dose reduction techniques: automated exposure control, adjustment of the mA and/or kV according to patient size, use of iterative reconstruction technique. DLP: 481 mGy-cm FINDINGS: LOWER CHEST: The visualized lung bases are clear. There is no pleural effusion. CARDIOVASCULATURE: The heart is normal in size. There is no pericardial effusion. LIVER: The liver is normal in size and contour. There is heterogeneous decreased attenuation in the left lobe of the liver. There is a 1.2 cm hyperdense lesion along the undersurface of the left lobe. This was not definitely present on the prior study. There is a 10 mm probable cyst in the right lobe. GALLBLADDER / BILE DUCTS: The gallbladder is unremarkable. There is no intra or extrahepatic biliary ductal dilatation. SPLEEN: The spleen is normal in size and has an unremarkable unenhanced appearance. PANCREAS: The pancreas has an unremarkable unenhanced appearance. ADRENAL GLANDS: Unremarkable. KIDNEYS/RETROPERITONEUM: There are punctate nonobstructing calculi in the interpolar region and at the lower pole of the right kidney. There is moderate right hydroureteronephrosis to the level of two adjacent 2-3 mm calculi at the UVJ. There is no left hydronephrosis or hydroureter. There is a 3.2 cm cyst at the upper pole of the right kidney and a 3.5 cm cyst at the upper pole of the left kidney. LYMPH NODES: No retroperitoneal lymphadenopathy is identified in the abdomen or pelvis. VASCULATURE: The abdominal aorta demonstrates atherosclerotic calcification, but is normal in caliber. MESENTERY/PERITONEUM: No free fluid. No masses. There is no free intraperitoneal gas. STOMACH: Postsurgical changes are noted involving the stomach. SMALL BOWEL: The small bowel is normal in caliber. A small bowel anastomosis is noted in the left mid abdomen. COLON: The colon is unremarkable. APPENDIX: Normal. URINARY BLADDER/PELVIC ORGANS: The urinary bladder is unremarkable. The prostate is mildly enlarged. BONES / SOFT TISSUES: No suspicious bony or soft tissue abnormalities. CT/CT abdomen pelvis wo IV con IMPRESSION: 1. Moderate right hydroureteronephrosis to the level of two adjacent 2-3 mm calculi at the UVJ. 2. 1.2 cm hyperdense lesion along the undersurface of the left lobe of the liver. This is in the region of markedly heterogeneous decreased attenuation. Given the history of prior gastric carcinoma, metastatic disease is not excluded. Outpatient MRI of the liver without and with contrast is recommended. Electronically signed by: Dusty Henley MD 06/24/2024 02:12 PM [facility]
[2024-06-24 09:44] VITALS: BP 156/88; PULSE 79; RESP 20; TEMP 36.7; O2SAT 96; BMI 30.6
[2024-06-24 10:17] LABS: MANUAL DIFF FLAG NO
[2024-06-24 10:19] LABS: Basophils Percent Auto 0.2 % (0-2); Hematocrit 39.2 % (42.0-52.0); Hemoglobin 13.3 g/dl (14.0-18.0); Imm Gran Abs Auto 0.27 X10*3/uL (0.00-0.03); Imm Gran Pct Auto 1.3 % (0.0-0.4); Lymphocytes Absolute Auto 2.3 X10*3/uL (1.2-4.9); Lymphocytes Percent Auto 10.7 % (20-40); Mean Corpuscular HGB Conc 33.9 g/dl (31.0-36.0); Mean Corpuscular Hemoglobin 28.2 pg (27.0-33.0); Mean Corpuscular Volume 83.2 fL (80.0-98.0); Mean Platelet Volume 9.5 fL (9.4-12.4); Monocytes Absolute Auto 1.4 X10*3/uL (0.1-1.2); Monocytes Percent Auto 6.5 % (2-11); Neutrophils Absolute Auto 17.3 x10*3/uL (2.0-8.3); Neutrophils Percent Auto 81.3 % (45-73); Platelet Count 360 X10*3/uL (160-400); Red Blood Count 4.71 X10*6/uL (4.60-5.80); White Blood Count 21.3 X10*3/uL (4.8-10.8)
[2024-06-24 10:34] LABS: Alanine Aminotransferase 24 U/L (0-40); Alkaline Phosphatase 66 U/L (39-117); Anion Gap 11 (12-20); Aspartate Amino Transferase 19 U/L (5-37); Bilirubin Direct 0.2 mg/dL (0.0-0.5); Bilirubin Total 0.4 mg/dL (0.0-1.0); Blood Urea Nitrogen 25 mg/dL (9-16); Calcium 9.4 mg/dL (8.4-10.2); Carbon Dioxide 26 mmol/L (22-29); Chloride 105 mmol/L (96-108); Creatinine Clr Calc Pharmacy 42.2; Estimated Glomerular Filt Rate 49; Glucose Random 314 mg/dL (60-115); Lipase 5 U/L (8-78); Potassium 4.8 mmol/L (3.3-5.1); Sodium 137 mmol/L (135-145)
--- NOTE | 2024-06-24 14:44 | ED.ABDPAIN ---
HPI - Abdominal Pain General Chief Complaint: Abdominal Pain Stated Complaint: appendix pain ? 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 Denies fevers, chills, chest pain, nausea, vomiting, hematemesis, diarrhea, constipation, hematochezia, melena, dysuria, urinary frequency, urinary urgency, urinary hesitancy, hematuria. denies testicular pain/urethral discharge or scrotal swelling. Related Data Home Medications ?Medication ?Instructions ?Recorded ?Confirmed amlodipine 10 mg tablet (Norvasc) 10 mg PO DAILY 03/27/20 12/23/23 atorvastatin 20 mg tablet 20 mg PO BEDTIME 03/27/20 12/23/23 calcium polycarbophil 625 mg tablet 1,250 mg PO DAILY 03/27/20 12/23/23 cyanocobalamin (vitamin B-12) 1,000 mcg PO DAILY 03/27/20 12/23/23 1,000 mcg tablet lisinopril 30 mg tablet 30 mg PO DAILY 02/14/21 12/23/23 mirtazapine 15 mg tablet 15 mg PO BEDTIME 02/14/21 12/23/23 carvedilol 12.5 mg tablet 12.5 mg PO BID 05/29/22 12/23/23 hydrochlorothiazide 25 mg tablet 25 mg PO DAILY 05/29/22 12/23/23 lidocaine 5 % topical patch 1 patch topical DAILY 05/29/22 12/23/23 dapagliflozin propanediol 10 mg 10 mg PO DAILY 09/10/23 12/23/23 tablet (Farxiga) insulin glargine 100 unit/mL (3 30 unit subcut DAILY 09/10/23 12/23/23 mL) subcutaneous pen (Lantus Solostar U-100 Insulin) Previous Rx's ?Medication ?Instructions ?Recorded glipizide 10 mg tablet, extended 10 mg PO DAILY #30 tabs 12/31/22 release 24 hr (Glucotrol XL) ferrous sulfate 325 mg (65 mg 325 mg PO BID #60 tabs 05/23/24 iron) tablet tamsulosin 0.4 mg capsule 0.4 mg PO BEDTIME #10 caps 06/24/24 Allergies Allergy/AdvReac Type Severity Reaction Status Date / Time No Known Allergies Allergy Verified 06/24/24 09:45 [No Known Allergies*] Review of Systems Review of Systems Yes all other systems are reviewed and are negative FORMERLY [facility], [facility] Past Medical History Attestation statement: The following information was validated with the patient. Source: old records reviewed Medical History Diabetes History of gastrectomy History of colon polyps Gastrointestinal stromal tumor (GIST) (~2014) Gastric adenocarcinoma Hydrocele Renal calculi Gastritis Vitamin B12 deficiency Hypercholesterolemia Hypertension Depression Surgical History Hx of resection of stomach Hx of esophagogastroduodenoscopy Hx of endoscopy History of hernia repair History of back surgery (~2016) History of colonoscopy (~07/22/19) History of esophagogastroduodenoscopy (EGD) (07/22/19) Family History Family History Father No problems noted. Mother History of cancer Social History Social History Household Members: Spouse Housing: House Alcohol intake: former Patient Tobacco Use Status: Former Tobacco user Tobacco use type: Cigarette Years Smoked: 35 Advance Directives: Yes Advance Directives on File: Yes Advance Directives Date on File: 01/07/22 service: No Current occupational status: retired Physical Exam ED Vital Signs: Vital Signs - 24 hr 06/24/24 09:44 06/24/24 14:55 Temperature 98.1 F 98.0 F Pulse Rate 79 74 Respiratory Rate 20 18 Blood Pressure 156/88 H 134/108 H Pulse Oximetry 96 96 Oxygen Delivery Method Room Air Room Air BMI result Body Mass Index 30.6 Appearance: Alert.?Oriented to person, place and time. No acute distress.?Normal affect.?? Neck: Normal inspection.? Neck supple.?? CVS: Heart sounds normal. Normal heart rate and rhythm.? Pulses normal.?? Respiratory: No respiratory distress.? Lung sounds clear to auscultation bilaterally?? Abdomen: Soft with right lower quadrant tenderness upon palpation. No rebound tenderness at McBurney's point. Negative psoas sign. Negative Rovsing sign. Negative Davis sign. Positive right CVAT Normoactive bowel sounds. No pulsatile mass.?? Skin: Skin warm and dry.? Normal skin color.? Extremities: No lower extremity edema.? Neuro: Moves all extremities spontaneously. Sensation intact bilaterally. Ambulates with normal steady gait. Course Reevaluation(s) Reevaluation #1: Urinalysis is rather without evidence of infection there is microscopic hematuria with trace leukocyte esterase urine WBC 11-20 but no urine bacteria seen. I discussed this case with Urology, Dr. Garrett, he has no lactic acidosis. Get advises that the patient be discharged home with Flomax and outpatient follow-up for this coming Thursday. Patient was made aware of these findings and he is agreeable with plan of care. Sent prescription for Flomax to pharmacy he received the first dose in the emergency department. He is prescribed oxycodone already therefore would not prescribe additional analgesic aside from acetaminophen Time: 16:37 Medical Decision Making Medical Decision Making MDM Narrative: Patient is a 74-year-old male with past medical history of iron-deficiency anemia, gastritis, hypertension, hyperlipidemia, gastric adenocarcinoma, GIST s/p resection in 2013, nephrolithiasis who presents for evaluation of abdominal pain with outpatient provider concern for appendicitis as per HPI. He had an initial workup started prior to my assumption of care including serum labs in addition to a CT of the abdomen and pelvis. On review of his medical record he was last seen with Oncology Dr. Ferrera 12/23/2023; September of 2019 found to have invasive gastric adenocarcinoma distal gastrectomy with omentectomy and Sarah-en-Y gastrojejunostomy, 2 cycles of FOLFOX followed by radiation therapy, did not tolerate chemo with radiation and declined post radiation chemo in March of 2023 had ill-defined hepatic hypodensity suspicious for metastatic lesions, unsuccessful ultrasound-guided biopsy of the largest lesion as it was not visualized on ultrasound, abdominal ultrasound in May of 2023 showed stable hepatomegaly. On CT imaging today there is a 1.2 cm hyperdense lesion along the undersurface of the left lobe in the region of markedly heterogeneous decreased attenuation as well as 10 mm probable cyst in the right lobe, given history of gastric carcinoma, radiologist suggesting outpatient MRI of the liver without and with contrast for further evaluation of possible metastatic disease. I did discuss this finding with patient in the use of the department mgr. Additionally CT revealing moderate right hydroureter nephrosis of the level of to adjacent 2-3 mm calculi at the UVJ, he has associated leukocytosis 21,300 with left shift, this is not baseline for him, chemistries without electrolyte derangement, mild RAKESH, and non-anion gap hyperglycemia. These findings were discovered at 15:00, at this time a urinalysis has yet to be obtained however I do have concern for infected calculi, obtaining lactic acid and blood cultures, patient agreeable to providing urinalysis at this time, will cover with Rocephin, he is not currently hypotensive and without evidence of organ dysfunction. Patient received 1 L of normal saline IV fluid rather than full weight based fluid bolus. Differential Diagnosis Differential Diagnoses: The differential diagnosis associated with the presentation includes (See narrative above) Admission/Observation Consideration of admission/observation: Escalation of care including admission/observation considered (See narrative above ) Lab Data MDM Lab Attestation statement: I reviewed the patient's lab results. 06/24/24 10:08 06/24/24 10:08 Labs: Lab Results 06/24/24 06/24/24 06/24/24 Range/Units 10:08 15:24 15:39 WBC 21.3 H (4.8-10.8) X10*3/uL RBC 4.71 (4.60-5.80) X10*6/uL Hgb 13.3 L (14.0-18.0) g/dl Hct 39.2 L (42.0-52.0) % MCV 83.2 (80.0-98.0) fL MCH 28.2 (27.0-33.0) pg MCHC 33.9 (31.0-36.0) g/dl RDW 16.0 (11.0-16.0) % Plt Count 360 (160-400) X10*3/uL MPV 9.5 (9.4-12.4) fL Immature Gran % (Auto) 1.3 H (0.0-0.4) % Neut % (Auto) 81.3 H (45-73) % Lymph % (Auto) 10.7 L (20-40) % [place] % (Auto) 6.5 (2-11) % Eos % (Auto) 0.0 (0-4) % Baso % (Auto) 0.2 (0-2) % Lymph # (Auto) 2.3 (1.2-4.9) X10*3/uL [place] # (Auto) 1.4 H (0.1-1.2) X10*3/uL Eos # (Auto) 0.0 (0.0-0.4) X10*3/uL Baso # (Auto) 0.0 (0.0-0.2) X10*3/uL Abs Immat Gran (auto) 0.27 H (0.00-0.03) X10*3/uL Absolute Neuts (auto) 17.3 H (2.0-8.3) x10*3/uL Absolute Nucleated RBC 0.000 (0.0-0.012) X10*3/uL Nucleated RBC % (auto) 0.0 (0.0-0.2) /100WBC Sodium 137 (135-145) mmol/L Potassium 4.8 (3.3-5.1) mmol/L Chloride 105 (96-108) mmol/L Carbon Dioxide 26 (22-29) mmol/L Anion Gap 11 L (12-20) BUN 25 H (9-16) mg/dL Creatinine 1.42 H (0.5-1.4) mg/dL Estim Creat Clear Calc 42.2 Estimated GFR 49 Random Glucose 314 H (60-115) mg/dL Lactic Acid 1.8 (0.5-2.0) mmol/L Calcium 9.4 (8.4-10.2) mg/dL Total Bilirubin 0.4 (0.0-1.0) mg/dL Direct Bilirubin 0.2 (0.0-0.5) mg/dL AST 19 (5-37) U/L ALT 24 (0-40) U/L Alkaline Phosphatase 66 (39-117) U/L Total Protein 8.0 (6.5-8.0) g/dL Albumin 4.0 (3.5-5.0) g/dL Lipase 5 L (8-78) U/L Urine Color Yellow Urine Appearance Cloudy Urine pH 5.5 (5.0-9.0) Ur Specific [place] >= 1.030 H (1.005-1.025) Urine Protein 30 (1+) H (Neg-Trace) mg/dL Urine Glucose (UA) >=1000 H (Negative) mg/dL Urine Ketones Negative (Negative) mg/dL Urine Blood Large (3+) H (Negative) Urine Nitrite Negative (Negative) Ur Leukocyte Esterase Trace H (Negative) Urine RBC >20 H (0-2) /HPF Urine WBC 11-20 H (0-5) /HPF Ur Squamous Epith Cells 0-2 (0-2) /HPF Urine Bacteria None Seen (None Seen) Hyaline Casts 0-2 (0-2) /LPF Independent Interpretation I performed an independent interpretation of an: CT Scan (Right hydronephrosis with ureteral calculi) Radiology Impression Discussion of test interpretation with radiology: I have reviewed the radiologist's reading. Radiologist Impression: CT/CT abdomen pelvis wo IV con IMPRESSION: 1. Moderate right hydroureteronephrosis to the level of two adjacent 2-3 mm calculi at the UVJ. 2. 1.2 cm hyperdense lesion along the undersurface of the left lobe of the liver. This is in the region of markedly heterogeneous decreased attenuation. Given the history of prior gastric carcinoma, metastatic disease is not excluded. Outpatient MRI of the liver without and with contrast is recommended. External Record Review External record reviewed: Outpatient record Chronic Conditions Patient?s care impacted by: Other (See narrative above) Medications Administered Discontinued Medications Generic Name Dose Route Start Last Admin Trade Name Freq PRN Reason Stop Dose Admin Ceftriaxone Sodium 1 gm 06/24/24 14:53 06/24/24 15:43 Ceftriaxone Sodium 1 Gm Vial IVPUSH 06/24/24 14:54 1 gm ONCE ONE Administration Sodium Chloride 1,000 mls @ 999 mls/hr 06/24/24 15:00 06/24/24 15:37 Ns IV 06/24/24 16:00 999 mls/hr .Q1H1M EVY Administration Discharge Plan Discharge Clinical Impression: Hydronephrosis with urinary obstruction due to ureteral calculus Patient Disposition: Home, Self-Care Instructions: Hydronephrosis (ED), Ureteral Stones (ED) Additional Instructions: Be sure that you are staying well hydrated over the next few days. I have sent a prescription for tamsulosin/Flomax to the pharmacy, take this in the evening. You can take Tylenol 500 mg, 2 tablets (1,000mg) every 4-6 hours as needed for pain, but not to exceed 3 doses daily (3,000mg).? If your pain is not relieved with the Tylenol you may use the oxycodone that you are already prescribed. The urine test does not show evidence of infection which is very reassuring there for you do not need to be started on antibiotics. I have spoke with our urologist Dr. Garrett, you should anticipate a call from his office Thursday, if you do not please contact his office to arrange for follow-up. Additionally, CT imaging today shows an abnormality in your liver which does appear new when compared to most recent imaging. Please contact Dr. Ferrera's office 1st thing Thursday to discuss further follow-up and potential additional studies outpatient to determine whether there is metastasis to the liver/ spread of your cancer to the liver. Prescriptions: New tamsulosin 0.4 mg capsule 0.4 mg PO BEDTIME Qty: 10 0RF No Action atorvastatin 20 mg Tablet 20 mg PO BEDTIME cyanocobalamin (vitamin B-12) 1,000 mcg Tablet 1,000 mcg PO DAILY amlodipine [Norvasc] 10 mg Tablet 10 mg PO DAILY calcium polycarbophil 625 mg Tablet 1,250 mg PO DAILY ferrous sulfate 325 mg (65 mg iron) Tablet 325 mg PO BID Qty: 60 3RF glipizide [Glucotrol XL] 10 mg tablet extended release 24hr 10 mg PO DAILY Qty: 30 2RF mirtazapine 15 mg tablet 15 mg PO BEDTIME lisinopril 30 mg tablet 30 mg PO DAILY hydrochlorothiazide 25 mg tablet 25 mg PO DAILY carvedilol 12.5 mg tablet 12.5 mg PO BID lidocaine 5 % adhesive patch,medicated 1 patch topical DAILY dapagliflozin propanediol [Farxiga] 10 mg tablet 10 mg PO DAILY insulin glargine [Lantus Solostar U-100 Insulin] 100 unit/mL (3 mL) insulin pen 30 unit subcut DAILY Referrals: Sindy Obrien MD [Primary Care Provider] - Amrik Garrett MD [Physician] - Christa Ferrera MD [Physician] - Print Language: [place]ese
[2024-06-24 14:55] VITALS: BP 134/108; PULSE 74; RESP 18; TEMP 36.7; O2SAT 96
[2024-06-24] MEDS: 0.9 % Sodium Chloride 1,000 ML 999 ML IV (15:37)
[2024-06-24] MEDS: cefTRIAXone sodium 1 GM VIAL IVPUSH (15:43)
[2024-06-24 15:50] LABS: Lactic Acid 1.8 mmol/L (0.5-2.0)
[2024-06-24 15:53] LABS: Appearance Urine Cloudy; Glucose Urine UA >=1000 mg/dL (Negative); Leukocyte Esterase Urine Trace (Negative); Nitrite Urine Negative (Negative); PH 5.5 (5.0-9.0); Specific Gravity - Urine >= 1.030 (1.005-1.025); UMIC TRIGGER UACC YES; Urine Blood Large (3+) (Negative); Urine Ketones Negative (Negative); Urine Protein 30 (1+) mg/dL (Neg-Trace)
[2024-06-24 15:58] LABS: Bacteria Urine None Seen (None Seen); Color Urine Yellow; Hyaline Casts Urine 0-2 /LPF (0-2); RBC Urine >20 /HPF (0-2); Squamous Epithelial Cell Urine 0-2 /HPF (0-2); UACC Culture Trigger YES
[2024-06-24] MEDS: Tamsulosin HCL 0.4 MG CAPSULE PO (16:50)
[2024-06-24 16:51] VITALS: BP 139/72; PULSE 63; RESP 16; TEMP 36.6; O2SAT 96
[2024-06-24 17:27] VITALS: BP 141/79; PULSE 65; RESP 16; TEMP 36.6; O2SAT 96
[2024-06-24 17:28] VITALS: BP 141/79; PULSE 65; RESP 16; TEMP 36.6; O2SAT 96
== END 2024-06-24 17:36 | disposition home or self-care (01) ==
PROVIDERS: Emergency Medicine; Nurse Practitioner Family; Emergency Provider Emergency Medicine; PCP Internal Medicine
DX: N13.2 Hydronephrosis with renal and ureteral calculous obstruction (principal); N39.0 Urinary tract infection, site not specified; B95.7 Other staphylococcus as the cause of diseases classified elsewhere; R10.31 Right lower quadrant pain; D72.829 Elevated white blood cell count, unspecified; E11.9 Type 2 diabetes mellitus without complications; I10 Essential (primary) hypertension; E78.00 Pure hypercholesterolemia, unspecified; Z87.891 Personal history of nicotine dependence
CPT/HCPCS: 36415; 74176; 80053; 81001; 82248; 83605; 83690; 85025; 87040; 87086; 87147; 87205; 99284; J0696

== ENCOUNTER → 2024-06-24 10:56 | Outpatient (BNV) | payer OTHER, SELFPAY | PROVIDERS: Emergency Provider Emergency Medicine; PCP Internal Medicine; Visit Provider Radiology Diagnostic Radiology | DX: N13.2 Hydronephrosis with renal and ureteral calculous obstruction (principal); K76.89 Other specified diseases of liver | CPT/HCPCS: 74176 ==

== ENCOUNTER 2024-06-25 14:47 | Inpatient (IN) | payer OTHER, SELFPAY ==
--- NOTE | ~2024-06-25 | FL_ITS ---
EXAMINATION: FL GUIDANCE ONLY HISTORY: stone right COMPARISON: Correlation is made with a CT of the abdomen and pelvis without contrast 06/24/2024. TECHNIQUE: Fluoroscopy time: 12.3 seconds. Cumulative Dose: 4.45 mGy. Images: 5. FINDINGS: Images were obtained during placement of a right nephroureteral stent. FL/FL guidance in OR IMPRESSION: Fluoroscopy during procedure. Please see procedure report for additional information. Electronically signed by: Dusty Henley MD 06/28/2024 08:42 AM EST
[2024-06-25 15:10] VITALS: BP 114/98; PULSE 89; RESP 19; TEMP 36.7; O2SAT 98; BMI 31.0
--- NOTE | 2024-06-25 15:10 | ED_ITS ---
HPI - Recheck/Abnormal Lab/Rx General Chief Complaint: Recheck/Abnormal Lab/Rx Stated Complaint: abnormal labs Time Seen by Provider: 06/25/24 17:06 Source: patient Mode of arrival: ambulatory Limitations: no limitations History of Present Illness ED Provider: HPI narrative: 74-year-old male with past medical history of iron-deficiency anemia, gastritis, hypertension, hyperlipidemia, gastric adenocarcinoma, GIST s/p resection in 2013, nephrolithiasis was seen here yesterday for the abdominal pain CT scan of the abdomen revealed due to 3 mm calculi at the UV junction with mild hydro ureter patient has had significant leukocytosis of 21 came with left shift was given IV Rocephin and discharged home follow up as outpatient comes back as blood culture grew Gram-positive cocci in clusters Gram-positive cocci in clusters patient denied any fever or chills feeling much better at this time Related Data Home Medications ?Medication ?Instructions ?Recorded ?Confirmed amlodipine 10 mg tablet (Norvasc) 10 mg PO DAILY 03/27/20 12/23/23 atorvastatin 20 mg tablet 20 mg PO BEDTIME 03/27/20 12/23/23 calcium polycarbophil 625 mg tablet 1,250 mg PO DAILY 03/27/20 12/23/23 cyanocobalamin (vitamin B-12) 1,000 mcg PO DAILY 03/27/20 12/23/23 1,000 mcg tablet lisinopril 30 mg tablet 30 mg PO DAILY 02/14/21 12/23/23 mirtazapine 15 mg tablet 15 mg PO BEDTIME 02/14/21 12/23/23 carvedilol 12.5 mg tablet 12.5 mg PO BID 05/29/22 12/23/23 hydrochlorothiazide 25 mg tablet 25 mg PO DAILY 05/29/22 12/23/23 lidocaine 5 % topical patch 1 patch topical DAILY 05/29/22 12/23/23 dapagliflozin propanediol 10 mg 10 mg PO DAILY 09/10/23 12/23/23 tablet (Farxiga) insulin glargine 100 unit/mL (3 30 unit subcut DAILY 09/10/23 12/23/23 mL) subcutaneous pen (Lantus Solostar U-100 Insulin) Previous Rx's ?Medication ?Instructions ?Recorded glipizide 10 mg tablet, extended 10 mg PO DAILY #30 tabs 12/31/22 release 24 hr (Glucotrol XL) ferrous sulfate 325 mg (65 mg 325 mg PO BID #60 tabs 05/23/24 iron) tablet tamsulosin 0.4 mg capsule 0.4 mg PO BEDTIME #10 caps 06/24/24 Allergies Allergy/AdvReac Type Severity Reaction Status Date / Time No Known Allergies Allergy Verified 06/25/24 15:13 [No Known Allergies*] Review of Systems 2 Review of Systems: Yes all other systems are reviewed and are negative [facility] Past Medical History Medical History Diabetes History of gastrectomy History of colon polyps Gastrointestinal stromal tumor (GIST) (~2014) Gastric adenocarcinoma Hydrocele Renal calculi Gastritis Vitamin B12 deficiency Hypercholesterolemia Hypertension Depression Surgical History Hx of resection of stomach Hx of esophagogastroduodenoscopy Hx of endoscopy History of hernia repair History of back surgery (~2016) History of colonoscopy (~07/22/19) History of esophagogastroduodenoscopy (EGD) (07/22/19) Family History Family History Father No problems noted. Mother History of cancer Social History Social History Household Members: Spouse Housing: House Alcohol intake: former Patient Tobacco Use Status: Former Tobacco user Tobacco use type: Cigarette Years Smoked: 35 Advance Directives: Yes Advance Directives on File: Yes Advance Directives Date on File: 01/07/22 Do you have a plan to hurt others: No Plan Nutrition Risks: No Nutritional Risk service: No Current occupational status: retired Physical Exam 2 Vital Signs: Vital Signs: Last Vital Signs Temp 97.5 F 06/25/24 20:16 Pulse 81 06/25/24 20:16 Resp 18 06/25/24 20:16 BP 126/70 06/25/24 20:16 Pulse Ox 95 06/25/24 20:16 O2 Del Method Room Air 06/25/24 20:16 BMI result Body Mass Index 31.0 Appearance: Alert. Oriented X3. No acute distress. Eyes: No pallor or icterus ENT: Pharynx normal. Oral Mucosa moist Neck: Normal inspection. Neck supple. CVS: Normal heart rate and rhythm. Pulses normal. Respiratory: No respiratory distress. Equal air entry bilateral, no wheezing/rales/rhonchi Abdomen: Soft and nontender. Bowel sounds are present, no mass palpable, no CVA tenderness Skin: Skin warm and dry. Normal skin color. Normal skin turgor. Extremities: No lower extremity edema. No calf tenderness Neuro: Oriented X 3. No motor deficit. Course Course Course Narrative: This is an RME: Additional HPI, ROS, PE not included below will be deferred to primary provider. RME assessment and note performed by: Jazmyn Carbajal PA-C This is a 74-year-old male, with past medical history of iron-deficiency anemia, gastritis, hypertension, hyperlipidemia, gastric adenocarcinoma, GIST s/p resection in 2013, nephrolithiasis who presents emergency department, who returns back to the emergency department after receiving a phone call today with 1/2 Gram-positive cluster blood culture. He was seen for hydronephrosis and ureter stones. He was discharged on tamsulosin. Negative for staph, given this, patient was advised to come back to the emergency room. He has no current complaints. Plan: Labs, repeat blood cultures. Medications Administered Generic Name Dose Route Start Last Admin Trade Name Freq PRN Reason Stop Dose Admin Ceftriaxone Sodium 1 gm 06/25/24 20:30 06/25/24 21:31 Ceftriaxone Sodium 1 Gm Vial IVPUSH 1 gm Q24H EVY Administration Enoxaparin Sodium 40 mg 06/25/24 20:30 06/25/24 21:31 Enoxaparin Sodium 40 Mg/0.4 Ml Syringe SUBCUT 40 mg Q24H EVY Administration Insulin Human Lispro 0 unit 06/25/24 21:00 06/25/24 22:02 Insulin Lispro 100 Unit/Ml 3 Ml Vial SUBCUT Not Given QIDACHS [facility] Protocol Discontinued Medications Generic Name Dose Route Start Last Admin Trade Name Freq PRN Reason Stop Dose Admin Vancomycin HCl 1,500 mg/ 500 mls @ 333.333 mls/hr 06/25/24 17:11 06/25/24 19:16 Sodium Chloride IV 06/25/24 18:40 Infused ONCE ONE Infusion Piperacillin Sod/Tazobactam 50 mls @ 100 mls/hr 06/25/24 17:15 06/25/24 18:36 Sod 3.375 gm/ Sodium Chloride IV 06/25/24 17:44 Infused ONCE ONE Infusion Vancomycin HCl 500 mg/ Sodium 110 mls @ 110 mls/hr 06/25/24 20:30 06/25/24 23:14 Chloride IV 06/25/24 21:29 Infused ONCE ONE Infusion Medical Decision Making Medical Decision Making [facility] Narrative: Patient's Gram-positive cocci in cluster in blood culture 06/09 with leukocytosis and kidney stone will admit patient for IV antibiotics pending final culture at this time patient is afebrile asymptomatic Differential Diagnosis Differential Diagnoses: The differential diagnosis associated with the presentation includes Bacteremia/kidney stone/contamination Admission/Observation Consideration of admission/observation: Escalation of care including admission/observation considered Consult Healthcare Provider Management of the patient was discussed with: Hospitalist Lab Data [facility] Lab Attestation statement: I reviewed the patient's lab results. 06/25/24 15:25 06/25/24 15:25 Labs: Lab Results 06/25/24 06/25/24 Range/Units 15:24 15:25 WBC 17.4 H (4.8-10.8) X10*3/uL RBC 4.33 L (4.60-5.80) X10*6/uL Hgb 12.4 L (14.0-18.0) g/dl Hct 36.3 L (42.0-52.0) % MCV 83.8 (80.0-98.0) fL MCH 28.6 (27.0-33.0) pg MCHC 34.2 (31.0-36.0) g/dl RDW 16.4 H (11.0-16.0) % Plt Count 332 (160-400) X10*3/uL MPV 9.6 (9.4-12.4) fL Immature Gran % (Auto) 0.9 H (0.0-0.4) % Neut % (Auto) 64.8 (45-73) % Lymph % (Auto) 23.2 (20-40) % Williams % (Auto) 10.4 (2-11) % Eos % (Auto) 0.5 (0-4) % Baso % (Auto) 0.2 (0-2) % Lymph # (Auto) 4.0 (1.2-4.9) X10*3/uL Williams # (Auto) 1.8 H (0.1-1.2) X10*3/uL Eos # (Auto) 0.1 (0.0-0.4) X10*3/uL Baso # (Auto) 0.0 (0.0-0.2) X10*3/uL Abs Immat Gran (auto) 0.16 H (0.00-0.03) X10*3/uL Absolute Neuts (auto) 11.3 H (2.0-8.3) x10*3/uL Absolute Nucleated RBC 0.000 (0.0-0.012) X10*3/uL Nucleated RBC % (auto) 0.0 (0.0-0.2) /100WBC Smear Tech's Comments VERIFIED Sodium 136 (135-145) mmol/L Potassium 4.2 (3.3-5.1) mmol/L Chloride 104 (96-108) mmol/L Carbon Dioxide 22 (22-29) mmol/L Anion Gap 14 (12-20) BUN 28 H (9-16) mg/dL Creatinine 1.32 (0.5-1.4) mg/dL Estim Creat Clear Calc 44.1 Estimated GFR 53 Random Glucose 268 H (60-115) mg/dL Lactic Acid 1.3 (0.5-2.0) mmol/L Calcium 9.0 (8.4-10.2) mg/dL Magnesium 2.1 (1.6-2.6) mg/dL Total Bilirubin 0.3 (0.0-1.0) mg/dL Direct Bilirubin 0.1 (0.0-0.5) mg/dL AST 21 (5-37) U/L ALT 20 (0-40) U/L Alkaline Phosphatase 59 (39-117) U/L Troponin I High Sens 5.9 (<3.5-35.0) ng/L Total Protein 7.3 (6.5-8.0) g/dL Albumin 3.7 (3.5-5.0) g/dL Lipase 14 (8-78) U/L Discharge Plan Discharge Clinical Impression: Renal calculi, Blood bacterial culture positive Patient Disposition: Admitted As Inpatient Interventions: Admission Worksheet (ED) Last Done: 06/26/24 00:07
[2024-06-25 15:32] LABS: Basophils Percent Auto 0.2 % (0-2); Eosinophils Absolute Auto 0.1 X10*3/uL (0.0-0.4); Eosinophils Percent Auto 0.5 % (0-4); Hematocrit 36.3 % (42.0-52.0); Hemoglobin 12.4 g/dl (14.0-18.0); Imm Gran Abs Auto 0.16 X10*3/uL (0.00-0.03); Imm Gran Pct Auto 0.9 % (0.0-0.4); Lymphocytes Percent Auto 23.2 % (20-40); Mean Corpuscular HGB Conc 34.2 g/dl (31.0-36.0); Mean Corpuscular Hemoglobin 28.6 pg (27.0-33.0); Mean Corpuscular Volume 83.8 fL (80.0-98.0); Mean Platelet Volume 9.6 fL (9.4-12.4); Monocytes Absolute Auto 1.8 X10*3/uL (0.1-1.2); Monocytes Percent Auto 10.4 % (2-11); Neutrophils Absolute Auto 11.3 x10*3/uL (2.0-8.3); Neutrophils Percent Auto 64.8 % (45-73); Platelet Count 332 X10*3/uL (160-400); Red Blood Count 4.33 X10*6/uL (4.60-5.80); Red Cell Distribution Width 16.4 % (11.0-16.0); SCAN SMEAR FLAG 1; White Blood Count 17.4 X10*3/uL (4.8-10.8)
[2024-06-25 15:44] LABS: Lactic Acid 1.3 mmol/L (0.5-2.0)
[2024-06-25 15:52] LABS: Alanine Aminotransferase 20 U/L (0-40); Albumin Level 3.7 g/dL (3.5-5.0); Anion Gap 14 (12-20); Aspartate Amino Transferase 21 U/L (5-37); Bilirubin Direct 0.1 mg/dL (0.0-0.5); Bilirubin Total 0.3 mg/dL (0.0-1.0); Blood Urea Nitrogen 28 mg/dL (9-16); Carbon Dioxide 22 mmol/L (22-29); Chloride 104 mmol/L (96-108); Creatinine Clr Calc Pharmacy 44.1; Estimated Glomerular Filt Rate 53; Glucose Random 268 mg/dL (60-115); Lipase 14 U/L (8-78); Magnesium 2.1 mg/dL (1.6-2.6); Potassium 4.2 mmol/L (3.3-5.1); Sodium 136 mmol/L (135-145); Total Protein 7.3 g/dL (6.5-8.0); Troponin-I High Sensitivity 5.9 ng/L (<3.5-35.0)
[2024-06-25 16:12] LABS: MANUAL DIFF FLAG SCAN; SLIDE REVIEW VERIFIED
[2024-06-25 16:46] LABS: Alkaline Phosphatase 59 U/L (39-117)
[2024-06-25 16:54] VITALS: BP 122/74; PULSE 99; RESP 18; TEMP 36.4; O2SAT 95
[2024-06-25] MEDS: Piperacillin Sodium/Tazobactam 3.375 GM in 0.9 % Sodium Chloride 50 ML IV (17:37)
[2024-06-25] MEDS: vancomycin HCL 1,500 MG in 0.9 % Sodium Chloride 500 ML 333.33 MG IV (17:43)
[2024-06-25 18:04] VITALS: BP 97/42; PULSE 57; RESP 16; TEMP 36.6; O2SAT 96
--- NOTE | 2024-06-25 19:48 | PC.NURSE ---
assumed care of pt at 1900. pt resting comfortably on stretcher, denies pain or nausea/vomiting. 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 call gonzalez within reach, plan of care ongoing.
[2024-06-25 20:16] VITALS: BP 126/70; PULSE 81; RESP 18; TEMP 36.4; O2SAT 95
--- NOTE | 2024-06-25 20:35 | PM.IMHP ---
History of Present Illness Date of Service: 06/25/24 Attending physician on admission: Brant Urban Chief Complaint: Bacteremia Pt is a 74-year-old Greek-speaking male with a PMH significant for?HTN, HLD, insulin-dependent type 2 diabetes, CKD 3, resection of guest 2013, hx of gastric adenocarcinoma 2019, and BPH who presents to the ED after blood cultures drawn yesterday came back with 1 set positive for Gram-positive cocci in clusters with MRSA and staph aureus negative. Pt initially presented to the ED yesterday due to RLQ abdominal pain x3 days. Workup at that time was concerning for right hydronephrosis with urinary obstruction due to ureteral calculus. UA negative at that time. Pt was discharged home on Flomax and told to follow up with Urology. Reports noticed some blood in his urine last night. But when he awoke this morning pt reports he felt ?great? with no abdominal pain. No repeat hematuria. Currently pt is asymptomatic. Nausea, vomiting, abdominal pain. Denies polyuria or dysuria. No chest pain/pressure, palpitations. Denies fever, chills. No shortness a breath or difficulty breathing. In the ED pt was afebrile but had elevated HR of 99 and variable BP as soft as 97/42. Labs were significant for leukocytosis 17.4 and creatinine 1.32 (though improved from yesterday). Stable H&H of 12.4/36.3. No significant electrolyte abnormalities. Hepatic function WNL. Troponin WNL at 5.9. Lactic acid WNL at 1.3. Pt was treated with vancomycin and Zosyn. Pt will be admitted to the hospital for bacteremia concerning for contamination vs sepsis from urologic source. Review of Systems Review of Systems: Negative except for that which is stated in the [facility] Medical History Diabetes History of gastrectomy History of colon polyps Gastrointestinal stromal tumor (GIST) (~2014) Gastric adenocarcinoma Hydrocele Renal calculi Gastritis Vitamin B12 deficiency Hypercholesterolemia Hypertension Depression Family History Father No problems noted. Mother History of cancer Surgical History Hx of resection of stomach Hx of esophagogastroduodenoscopy Hx of endoscopy History of hernia repair History of back surgery (~2016) History of colonoscopy (~07/22/19) History of esophagogastroduodenoscopy (EGD) (07/22/19) Social History Household Members: Spouse Housing: House Alcohol intake: former Patient Tobacco Use Status: Former Tobacco user Tobacco use type: Cigarette Years Smoked: 35 Advance Directives: Yes Advance Directives on File: Yes Advance Directives Date on File: 01/07/22 Do you have a plan to hurt others: No Plan Nutrition Risks: No Nutritional Risk service: No Current occupational status: retired Meds Allergies Allergy/AdvReac Type Severity Reaction Status Date / Time No Known Allergies Allergy Verified 06/25/24 15:13 [No Known Allergies*] Active Medications: Current Medications Acetaminophen (Acetaminophen 325 Mg Tablet) 650 mg PO Q6H PRN PRN Reason: Pain, Mild 1-3,fever,headache Calcium Carbonate (Calcium Carbonate 750 Mg Tab.Chew) 750 mg PO Q4H PRN PRN Reason: Heartburn Ceftriaxone Sodium (Ceftriaxone Sodium 1 Gm Vial) 1 gm IVPUSH Q24H EVY Enoxaparin Sodium (Enoxaparin Sodium 40 Mg/0.4 Ml Syringe) 40 mg SUBCUT Q24H EVY Glucose (Glucose Gel 15 Gm Gel..Gram.) 15 gm PO Q15M PRN; Protocol PRN Reason: per Hypoglycemia Standing Ord. Dextrose (D10) 250 mls @ 750 mls/hr IV Q15M PRN; Protocol PRN Reason: per Hypoglycemia Standing Ord. Vancomycin HCl 500 mg/ Sodium (Chloride) 110 mls @ 110 mls/hr IV ONCE ONE Stop: 06/25/24 21:29 Insulin Human Lispro (Insulin Lispro 100 Unit/Ml 3 Ml Vial) 0 unit SUBCUT QIDACHS EVY; Protocol Magnesium Hydroxide (Milk Of Magnesia 30 Ml Oral.Susp) 30 ml PO DAILY PRN PRN Reason: Constipation Melatonin (Melatonin 3 Mg Tablet) 6 mg PO BEDTIME PRN PRN Reason: Insomnia Ondansetron HCl (Ondansetron Hcl 4 Mg/2 Ml Vial) 4 mg IVPUSH Q8H PRN PRN Reason: Nausea and Vomiting Pharmacy Consult (Consult Rx Vancomycin Dosing) 1 each MISCELLANE DAILY PRN PRN Reason: Consult order Sodium Chloride (0.9 % Sodium Chloride Flush 3 Ml Syringe) 3 ml IVFLUSH QSHIFT [facility] Home Medications ?Medication ?Instructions ?Recorded ?Confirmed ?Last Taken ?Type amlodipine 10 mg tablet (Norvasc) 10 mg PO DAILY 03/27/20 12/23/23 Unknown History atorvastatin 20 mg tablet 20 mg PO BEDTIME 03/27/20 12/23/23 Unknown History calcium polycarbophil 625 mg tablet 1,250 mg PO DAILY 03/27/20 12/23/23 Unknown History cyanocobalamin (vitamin B-12) 1,000 mcg PO DAILY 03/27/20 12/23/23 Unknown History 1,000 mcg tablet lisinopril 30 mg tablet 30 mg PO DAILY 02/14/21 12/23/23 Unknown History mirtazapine 15 mg tablet 15 mg PO BEDTIME 02/14/21 12/23/23 Unknown History carvedilol 12.5 mg tablet 12.5 mg PO BID 05/29/22 12/23/23 Unknown History hydrochlorothiazide 25 mg tablet 25 mg PO DAILY 05/29/22 12/23/23 Unknown History lidocaine 5 % topical patch 1 patch topical DAILY 05/29/22 12/23/23 Unknown History dapagliflozin propanediol 10 mg 10 mg PO DAILY 09/10/23 12/23/23 Unknown History tablet (Farxiga) insulin glargine 100 unit/mL (3 30 unit subcut DAILY 09/10/23 12/23/23 Unknown History mL) subcutaneous pen (Lantus Solostar U-100 Insulin) Physical Exam Vital Signs and Narrative: Vital Signs: Last Vital Signs Temp 97.5 F 06/25/24 20:16 Pulse 81 06/25/24 20:16 Resp 18 06/25/24 20:16 BP 126/70 06/25/24 20:16 Pulse Ox 95 06/25/24 20:16 O2 Del Method Room Air 06/25/24 20:16 BMI result Body Mass Index 31.0 General: AOx3, no acute distress Resp: CTA bilaterally CVS: S1, S2, RRR GI: +BS, NT, no distention Skin: Warm, dry Neuro: Cranial nerves II-XII grossly intact bilaterally. Motor grossly intact bilaterally Extremities: No edema Psych: Appropriate affect Results Labs 06/25/24 15:25 06/25/24 15:25 Labs: Laboratory Results - last 24 hr 06/25/24 06/25/24 15:24 15:25 MCV 83.8 MCH 28.6 MCHC 34.2 RDW 16.4 H Plt Count 332 MPV 9.6 Immature Gran % (Auto) 0.9 H Neut % (Auto) 64.8 Lymph % (Auto) 23.2 [place] % (Auto) 10.4 Eos % (Auto) 0.5 Baso % (Auto) 0.2 Lymph # (Auto) 4.0 [place] # (Auto) 1.8 H Eos # (Auto) 0.1 Baso # (Auto) 0.0 Abs Immat Gran (auto) 0.16 H Absolute Neuts (auto) 11.3 H Absolute Nucleated RBC 0.000 Nucleated RBC % (auto) 0.0 Smear Tech's Comments VERIFIED Anion Gap 14 Estim Creat Clear Calc 44.1 Estimated GFR 53 Random Glucose 268 H Lactic Acid 1.3 Calcium 9.0 Magnesium 2.1 Total Bilirubin 0.3 Direct Bilirubin 0.1 AST 21 ALT 20 Alkaline Phosphatase 59 Troponin I High Sens 5.9 Total Protein 7.3 Albumin 3.7 Lipase 14 Assessment and Plan (1) Bacteremia: Status: Acute Plan Pt is a 74-year-old Greek-speaking male with a PMH significant for?HTN, HLD, insulin-dependent type 2 diabetes, CKD 3, resection of guest 2013, hx of gastric adenocarcinoma 2019, and BPH who presents to the ED after blood cultures drawn yesterday came back with 1 set positive for Gram-positive cocci in clusters with MRSA and staph aureus negative. Pt will be admitted to the hospital for bacteremia concerning for contamination vs sepsis from urologic source. Bacteremia 1/2 Blood cultures yesterday positive for gram-positive cocci in clusters, MRSA and staph aureus negative Pt currently asymptomatic without acute medical complaints Concerning for contamination vs sepsis from urologic source CT of abdomen/pelvis yesterday showed moderate right hydroureteronephrosis with to 2-3 mm calculi at the UVJ Would meets SIRS criteria with HR >90 and leukocytosis; lactic acid WNL Pt empirically started on vancomycin and Zosyn, started 06/25/2024 Urology consult Follow blood and urine cultures Liver lesion CT from yesterday showed 1.2 cm hyperdense lesion of left lobe of liver Concerning for possible metastatic disease Follow up outpatient with Dr. Ferrera for possible additional workup and imaging HTN Continue amlodipine, carvedilol, lisinopril, hydrochlorothiazide HLD Continue statin Insulin-dependent type 2 diabetes Sliding scale insulin, Lantus Continue glipizide Diabetic diet Mood disorder Continue mirtazapine Full Code Attending:?Dr. Urban DVT Prophylaxis: Lovenox Pt will require a hospitalization of at least two nights for treatment of?bacteremia concerning for contamination vs sepsis from urologic source requiring empiric IV antibiotics while awaiting repeat blood cultures. Quality Stroke Does the patient have a stroke diagnosis?: No VTE Prior VTE?: No VTE Risk Level:: Medical - moderate - high VTE Device Contraindication: Treatment Not Indicated VTE Drug Contraindication: N/A - Med Ordered
[2024-06-25] MEDS: cefTRIAXone sodium 1 GM VIAL IVPUSH (21:31)
[2024-06-25] MEDS: Enoxaparin Sodium 40 MG/0.4 ML SYRINGE SUBCUT (21:31)
[2024-06-25 21:41] LABS: Glucose, Whole Blood 129 mg/dL (60-115)
--- NOTE | 2024-06-25 21:44 | PHA.PROG ---
Admission Date/Time: June 25, 2024 20:20 Indication: Intra-abdominal Weight in k kg Serum Creatinine - Last 168 Hours 06/25/24 15:25 Creatinine 1.32 Estimated CrCl and GFR - Last 168 Hours 06/25/24 15:25 Estim Creat Clear Calc 44.1 Estimated GFR 53 Vancomycin Loading Dose: 2,000mg (1500mg + 500mg) Current Vancomycin Dosing Regimen: 1,000mg q24h Vancomycin Monitoring using AUC goal of 400 - 600 range with trough as surrogate marker: 430, predicted trough 13 Date and Time for next Vancomycin Level to be drawn: 06/27 @ 1800 Pharmacist Comments on Vancomycin Plan: Vancomycin dosing will take advantage of [employer] as a clinical decision support tool that uses Bayesian modeling to calculate individual patient's pharmacokinetic parameters and forecast the patient's drug concentration time course with the target goal AUC 24 range of 400 - 600 mg/L/hr.
[2024-06-25] MEDS: vancomycin HCL 500 MG in 0.9 % Sodium Chloride 100 ML 110 MG IV (22:13)
[2024-06-26] MEDS: 0.9 % Sodium Chloride Flush 3 ML SYRINGE IVFLUSH ×3 (01:52→21:01)
[2024-06-26 01:56] VITALS: BMI 30.8
[2024-06-26 03:50] VITALS: BP 132/76; PULSE 70; RESP 18; TEMP 36.3; O2SAT 95
[2024-06-26 07:02] LABS: Basophils Absolute Auto 0.1 X10*3/uL (0.0-0.2); Basophils Percent Auto 0.3 % (0-2); Eosinophils Absolute Auto 0.2 X10*3/uL (0.0-0.4); Hematocrit 37.6 % (42.0-52.0); Hemoglobin 12.3 g/dl (14.0-18.0); Imm Gran Abs Auto 0.08 X10*3/uL (0.00-0.03); Imm Gran Pct Auto 0.5 % (0.0-0.4); Lymphocytes Absolute Auto 4.5 X10*3/uL (1.2-4.9); Lymphocytes Percent Auto 28.4 % (20-40); MANUAL DIFF FLAG SCAN; Mean Corpuscular HGB Conc 32.7 g/dl (31.0-36.0); Mean Corpuscular Hemoglobin 28.1 pg (27.0-33.0); Mean Platelet Volume 10.3 fL (9.4-12.4); Monocytes Absolute Auto 1.8 X10*3/uL (0.1-1.2); Monocytes Percent Auto 11.1 % (2-11); Neutrophils Absolute Auto 9.4 x10*3/uL (2.0-8.3); Neutrophils Percent Auto 58.7 % (45-73); Platelet Count 334 X10*3/uL (160-400); Red Blood Count 4.37 X10*6/uL (4.60-5.80); Red Cell Distribution Width 16.4 % (11.0-16.0); SCAN SMEAR FLAG 1; White Blood Count 15.9 X10*3/uL (4.8-10.8)
[2024-06-26 07:09] VITALS: BP 145/83; PULSE 70; RESP 20; TEMP 36.2; O2SAT 96
[2024-06-26 07:21] LABS: Creatinine Clr Calc Pharmacy 68.4; Estimated Glomerular Filt Rate > 60
[2024-06-26 07:22] LABS: SLIDE REVIEW VERIFIED
[2024-06-26 07:35] LABS: Anion Gap 12 (12-20); Blood Urea Nitrogen 23 mg/dL (9-16); Calcium 8.8 mg/dL (8.4-10.2); Carbon Dioxide 27 mmol/L (22-29); Chloride 106 mmol/L (96-108); Creatinine Clr Calc Pharmacy 65.5; Estimated Glomerular Filt Rate > 60; Glucose Random 71 mg/dL (60-115); Potassium 4.8 mmol/L (3.3-5.1); Sodium 140 mmol/L (135-145)
--- NOTE | 2024-06-26 08:53 | P.PNIM_ITS ---
Subjective Subjective Date of Service: 06/26/24 Review of Systems Follow up bacteremia no pain, n,v,d Physical Exam 2 Vital Signs: Vital Signs: Last Vital Signs Temp 97.2 F 06/26/24 07:09 Pulse 70 06/26/24 07:09 Resp 20 06/26/24 07:09 BP 145/83 H 06/26/24 07:09 Pulse Ox 96 06/26/24 07:09 O2 Del Method Room Air 06/26/24 07:09 BMI result Body Mass Index 30.8 Appearing in no acute distress lung sounds are clear to auscultation heart regular rate rhythm, clear S1, S2 positive bowel sounds, abdomen is soft, nontender neuro patient is alert x3, no focal deficits Objective Data Active Medications Acetaminophen (Acetaminophen 325 Mg Tablet) 650 mg PO Q6H PRN PRN Reason: Pain, Mild 1-3,fever,headache Calcium Carbonate (Calcium Carbonate 750 Mg Tab.Chew) 750 mg PO Q4H PRN PRN Reason: Heartburn Ceftriaxone Sodium (Ceftriaxone Sodium 1 Gm Vial) 1 gm IVPUSH Q24H [facility] Last Admin: 06/25/24 21:31 Dose: 1 gm Documented By: BRANDON Enoxaparin Sodium (Enoxaparin Sodium 40 Mg/0.4 Ml Syringe) 40 mg SUBCUT Q24H [facility] Last Admin: 06/25/24 21:31 Dose: 40 mg Documented By: BRANDON Glucose (Glucose Gel 15 Gm Gel..Gram.) 15 gm PO Q15M PRN; Protocol PRN Reason: per Hypoglycemia Standing Ord. Dextrose (D10) 250 mls @ 750 mls/hr IV Q15M PRN; Protocol PRN Reason: per Hypoglycemia Standing Ord. Vancomycin HCl 1,000 mg/ (Sodium Chloride) 270 mls @ 270 mls/hr IV Q24H [facility] Insulin Human Lispro (Insulin Lispro 100 Unit/Ml 3 Ml Vial) 0 unit SUBCUT QIDACHS [facility]; Protocol Last Admin: 06/25/24 22:02 Dose: Not Given Documented By: BRANDON Non-Admin Reason: No Insulin Coverage Magnesium Hydroxide (Milk Of Magnesia 30 Ml Oral.Susp) 30 ml PO DAILY PRN PRN Reason: Constipation Melatonin (Melatonin 3 Mg Tablet) 6 mg PO BEDTIME PRN PRN Reason: Insomnia Ondansetron HCl (Ondansetron Hcl 4 Mg/2 Ml Vial) 4 mg IVPUSH Q8H PRN PRN Reason: Nausea and Vomiting Pharmacy Consult (Consult Rx Vancomycin Dosing) 1 each MISCELLANE DAILY PRN PRN Reason: Consult order Sodium Chloride (0.9 % Sodium Chloride Flush 3 Ml Syringe) 3 ml IVFLUSH QSHIFT [facility] Last Admin: 06/26/24 01:52 Dose: 3 ml Documented By: JIMENA Labs 06/26/24 05:53 06/26/24 05:54 Labs: Laboratory Results - last 24 hr 06/25/24 06/25/24 06/25/24 15:24 15:25 21:38 MCV 83.8 MCH 28.6 MCHC 34.2 RDW 16.4 H Plt Count 332 MPV 9.6 Immature Gran % (Auto) 0.9 H Neut % (Auto) 64.8 Lymph % (Auto) 23.2 [place] % (Auto) 10.4 Eos % (Auto) 0.5 Baso % (Auto) 0.2 Lymph # (Auto) 4.0 [place] # (Auto) 1.8 H Eos # (Auto) 0.1 Baso # (Auto) 0.0 Abs Immat Gran (auto) 0.16 H Absolute Neuts (auto) 11.3 H Absolute Nucleated RBC 0.000 Nucleated RBC % (auto) 0.0 Smear Tech's Comments VERIFIED Anion Gap 14 Estim Creat Clear Calc 44.1 Estimated GFR 53 POC Glucose 129 H Random Glucose 268 H Lactic Acid 1.3 Calcium 9.0 Magnesium 2.1 Total Bilirubin 0.3 Direct Bilirubin 0.1 AST 21 ALT 20 Alkaline Phosphatase 59 Troponin I High Sens 5.9 Total Protein 7.3 Albumin 3.7 Lipase 14 06/26/24 06/26/24 05:53 05:54 MCV 86.0 MCH 28.1 MCHC 32.7 RDW 16.4 H Plt Count 334 MPV 10.3 Immature Gran % (Auto) 0.5 H Neut % (Auto) 58.7 Lymph % (Auto) 28.4 [place] % (Auto) 11.1 H Eos % (Auto) 1.0 Baso % (Auto) 0.3 Lymph # (Auto) 4.5 [place] # (Auto) 1.8 H Eos # (Auto) 0.2 Baso # (Auto) 0.1 Abs Immat Gran (auto) 0.08 H Absolute Neuts (auto) 9.4 H Absolute Nucleated RBC 0.000 Nucleated RBC % (auto) 0.0 Smear Tech's Comments VERIFIED Anion Gap 12 Estim Creat Clear Calc 68.4 65.5 Estimated GFR > 60 > 60 POC Glucose Random Glucose 71 Lactic Acid Calcium 8.8 Magnesium Total Bilirubin Direct Bilirubin AST ALT Alkaline Phosphatase Troponin I High Sens Total Protein Albumin Lipase Assessment and Plan (1) Bacteremia: Status: Acute Plan Pt is a 74-year-old Swedish-speaking male with a PMH significant for?HTN, HLD, insulin-dependent type 2 diabetes, CKD 3, resection of guest 2013, hx of gastric adenocarcinoma 2019, and BPH who presents to the ED after blood cultures drawn yesterday came back with 1 set positive for Gram-positive cocci in clusters with MRSA and staph aureus negative. Pt will be admitted to the hospital for bacteremia concerning for contamination vs sepsis from urologic source. Coag neg Bacteremia 1/2 Blood cultures yesterday positive for gram-positive cocci in clusters, MRSA and staph aureus negative Pt currently asymptomatic without acute medical complaints contamination CT of abdomen/pelvis yesterday showed moderate right hydroureteronephrosis with to 2-3 mm calculi at the UVJ Pt empirically started on vancomycin and Zosyn, started 06/25/2024, stop vanco Urology consult> plan for procedure tomorrow UTI follow urine cx continue abx Liver lesion CT from yesterday showed 1.2 cm hyperdense lesion of left lobe of liver Concerning for possible metastatic disease Follow up outpatient with Dr. Ferrera for possible additional workup and imaging HTN Continue amlodipine, carvedilol, lisinopril, hydrochlorothiazide HLD Continue statin Insulin-dependent type 2 diabetes Sliding scale insulin, Lantus Diabetic diet Mood disorder Continue mirtazapine Full Code Attending:?Dr. Snow DVT Prophylaxis: [employer] Stroke Does the patient have a stroke diagnosis?: No VTE Prior VTE?: No VTE Risk Level:: Medical - moderate - high VTE Device Contraindication: Treatment Not Indicated VTE Drug Contraindication: N/A - Med Ordered
[2024-06-26 08:59] LABS: Glucose, Whole Blood 84 mg/dL (60-115)
--- NOTE | 2024-06-26 10:21 | PHA.MEDREC ---
Pharmacy Consult ? Medication Reconciliation Pharmacy has completed the medication reconciliation. Med rec complete using change room attendant assistance. Pt was able to identify the names and doses of the medications he takes, states he takes the medications provided to him by the [facility] and only thing he takes other than what is in the med box is insulin glargine 36 units bid.
[2024-06-26 11:16] LABS: Glucose, Whole Blood 156 mg/dL (60-115)
[2024-06-26] MEDS: Insulin Lispro 100 UNIT/ML 3 ML VIAL SUBCUT ×2 (11:59→20:55)
--- NOTE | 2024-06-26 12:11 | P.CNUR_ITS ---
History of Present Illness Consult details Consult date: 06/26/24 Narrative: CC: Right hydronephrosis 74-year-old Telugu-speaking male Insulin type 2 diabetic CKD 3 BPH Presents to emergency room with Gram-positive cocci and MRSA urosepsis CT scan - moderate right hydroureteronephrosis with to 2-3 mm calculi at the UVJ Admission with medicine Antibiotics Plan intervention Thursday Review of Systems 2 Constitutional: Constitutional: Reports as per HPI and Reports no additional constitutional complaints Cardiovascular: Cardiovascular: Reports as per HPI and Reports no additional cardiovascular complaints Respiratory: Respiratory: Reports as per HPI and Reports no additional respiratory complaints Gastrointestinal: Gastrointestinal: Reports as per HPI and Reports no additional gastrointestinal complaints Genitourinary: Genitourinary: Reports as per HPI Musculoskeletal: Musculoskeletal: Reports no additional musculoskeletal complaints and Reports as per HPI Neurologic: Reports system reviewed and no additional complaints, except as documented and Reports as per HPI PMFSH Past Medical History Medical History Diabetes History of gastrectomy History of colon polyps Gastrointestinal stromal tumor (GIST) (~2014) Gastric adenocarcinoma Hydrocele Renal calculi Gastritis Vitamin B12 deficiency Hypercholesterolemia Hypertension Depression Family History Family History Father No problems noted. Mother History of cancer Surgical History Surgical History Hx of resection of stomach Hx of esophagogastroduodenoscopy Hx of endoscopy History of hernia repair History of back surgery (~2016) History of colonoscopy (~07/22/19) History of esophagogastroduodenoscopy (EGD) (07/22/19) Social History Social History Household Members: Spouse Housing: Apartment Do you presently have visiting nurse or other home services: Yes (2x month) Alcohol intake: former Patient Tobacco Use Status: Former Tobacco user Tobacco use type: Cigarette Years Smoked: 35 Advance Directives Date on File: 01/07/22 service: No Current occupational status: retired Meds Allergies Allergy/AdvReac Type Severity Reaction Status Date / Time No Known Allergies Allergy Verified 06/25/24 15:13 [No Known Allergies*] Active Medications: Current Medications Acetaminophen (Acetaminophen 325 Mg Tablet) 650 mg PO Q6H PRN PRN Reason: Pain, Mild 1-3,fever,headache Calcium Carbonate (Calcium Carbonate 750 Mg Tab.Chew) 750 mg PO Q4H PRN PRN Reason: Heartburn Ceftriaxone Sodium (Ceftriaxone Sodium 1 Gm Vial) 1 gm IVPUSH Q24H [facility] Last Admin: 06/25/24 21:31 Dose: 1 gm Enoxaparin Sodium (Enoxaparin Sodium 40 Mg/0.4 Ml Syringe) 40 mg SUBCUT Q24H [facility] Last Admin: 06/25/24 21:31 Dose: 40 mg Glucose (Glucose Gel 15 Gm Gel..Gram.) 15 gm PO Q15M PRN; Protocol PRN Reason: per Hypoglycemia Standing Ord. Dextrose (D10) 250 mls @ 750 mls/hr IV Q15M PRN; Protocol PRN Reason: per Hypoglycemia Standing Ord. Vancomycin HCl 1,000 mg/ (Sodium Chloride) 270 mls @ 270 mls/hr IV Q24H [facility] Insulin Human Lispro (Insulin Lispro 100 Unit/Ml 3 Ml Vial) 0 unit SUBCUT QIDACHS [facility]; Protocol Last Admin: 06/26/24 11:59 Dose: 2 unit Magnesium Hydroxide (Milk Of Magnesia 30 Ml Oral.Susp) 30 ml PO DAILY PRN PRN Reason: Constipation Melatonin (Melatonin 3 Mg Tablet) 6 mg PO BEDTIME PRN PRN Reason: Insomnia Ondansetron HCl (Ondansetron Hcl 4 Mg/2 Ml Vial) 4 mg IVPUSH Q8H PRN PRN Reason: Nausea and Vomiting Pharmacy Consult (Consult Rx Vancomycin Dosing) 1 each MISCELLANE DAILY PRN PRN Reason: Consult order Sodium Chloride (0.9 % Sodium Chloride Flush 3 Ml Syringe) 3 ml IVFLUSH QSHIFT [facility] Last Admin: 06/26/24 09:03 Dose: 3 ml Home Medications ?Medication ?Instructions ?Recorded ?Confirmed ?Last Taken ?Type amlodipine 10 mg tablet (Norvasc) 10 mg PO DAILY 03/27/20 06/26/24 06/23/24 History atorvastatin 20 mg tablet 20 mg PO BEDTIME 03/27/20 06/26/24 06/23/24 History calcium polycarbophil 625 mg tablet 1,250 mg PO DAILY 03/27/20 06/26/24 06/23/24 History cyanocobalamin (vitamin B-12) 1,000 mcg PO DAILY 03/27/20 06/26/24 06/23/24 History 1,000 mcg tablet mirtazapine 15 mg tablet 15 mg PO BEDTIME 02/14/21 06/26/24 06/23/24 History carvedilol 12.5 mg tablet 12.5 mg PO BID 05/29/22 06/26/24 06/23/24 History dapagliflozin propanediol 10 mg 10 mg PO DAILY 09/10/23 06/26/24 06/23/24 History tablet (Farxiga) insulin glargine 100 unit/mL (3 36 unit subcut BID 06/26/24 06/26/24 06/23/24 History mL) subcutaneous pen (Lantus Solostar U-100 Insulin) meclizine 25 mg tablet 25 mg PO TID PRN dizziness 06/26/24 06/26/24 06/23/24 History olmesartan 5 mg tablet 5 mg PO DAILY 06/26/24 06/26/24 06/23/24 History oxycodone 5 mg tablet 5 mg PO Q8H PRN severe pain 06/26/24 06/26/24 06/23/24 History Physical Exam 2 Vital Signs: Vital Signs: Last Vital Signs Temp 97.2 F 06/26/24 07:09 Pulse 70 06/26/24 07:09 Resp 20 06/26/24 07:09 BP 145/83 H 06/26/24 07:09 Pulse Ox 96 06/26/24 07:09 O2 Del Method Room Air 06/26/24 07:09 BMI result Body Mass Index 30.8 Const: General: cooperative, healthy appearing, comfortable and no acute distress Orientation/consciousness: patient oriented x3 HEENT: Face and sinus: Yes normal facial exam Mouth: moist mucous membranes Neck: Neck: Yes normal visual inspection, Yes full ROM and Yes trachea midline Chest: Chest palpation & inspection: normal inspection of the chest Resp: Effort & Inspection: normal respiratory effort, able to speak in complete sentences and no respiratory distress GI: Inspection: Yes normal to inspection Back/Spine/Pelvis: Cervical Spine: normal cervical lordosis Thoracic/Lumbar Spine: thoracic and lumbar spine normal to inspection Skin: General skin exam: no rashes or lesions noted Neuro: General: patient oriented x3, tone normal and moves all extremities Extrem: General: Yes normal to inspection and Yes capillary refill normal Results Labs 06/26/24 05:53 06/26/24 05:54 Labs: Abnormal lab results 06/25/24 06/25/24 06/26/24 Range/Units 15:25 21:38 05:53 WBC 17.4 H 15.9 H (4.8-10.8) X10*3/uL RBC 4.33 L 4.37 L (4.60-5.80) X10*6/uL Hgb 12.4 L 12.3 L (14.0-18.0) g/dl Hct 36.3 L 37.6 L (42.0-52.0) % RDW 16.4 H 16.4 H (11.0-16.0) % Immature Gran % (Auto) 0.9 H 0.5 H (0.0-0.4) % [place] % (Auto) 11.1 H (2-11) % [place] # (Auto) 1.8 H 1.8 H (0.1-1.2) X10*3/uL Abs Immat Gran (auto) 0.16 H 0.08 H (0.00-0.03) X10*3/uL Absolute Neuts (auto) 11.3 H 9.4 H (2.0-8.3) x10*3/uL BUN 28 H (9-16) mg/dL POC Glucose 129 H (60-115) mg/dL Random Glucose 268 H (60-115) mg/dL 06/26/24 06/26/24 Range/Units 05:54 11:12 WBC (4.8-10.8) X10*3/uL RBC (4.60-5.80) X10*6/uL Hgb (14.0-18.0) g/dl Hct (42.0-52.0) % RDW (11.0-16.0) % Immature Gran % (Auto) (0.0-0.4) % [place] % (Auto) (2-11) % [place] # (Auto) (0.1-1.2) X10*3/uL Abs Immat Gran (auto) (0.00-0.03) X10*3/uL Absolute Neuts (auto) (2.0-8.3) x10*3/uL BUN 23 H (9-16) mg/dL POC Glucose 156 H (60-115) mg/dL Random Glucose (60-115) mg/dL Short CBC 06/25/24 06/26/24 Range/Units 15:25 05:53 WBC 17.4 H 15.9 H (4.8-10.8) X10*3/uL Hgb 12.4 L 12.3 L (14.0-18.0) g/dl Hct 36.3 L 37.6 L (42.0-52.0) % Plt Count 332 334 (160-400) X10*3/uL BMP 06/25/24 06/26/24 06/26/24 15:25 05:53 05:54 Sodium 136 140 Potassium 4.2 4.8 Chloride 104 106 Carbon Dioxide 22 27 BUN 28 H 23 H Creatinine 1.32 0.88 0.92 Calcium 9.0 8.8 Liver Function 06/25/24 Range/Units 15:25 Total Bilirubin 0.3 (0.0-1.0) mg/dL Direct Bilirubin 0.1 (0.0-0.5) mg/dL AST 21 (5-37) U/L ALT 20 (0-40) U/L Alkaline Phosphatase 59 (39-117) U/L Albumin 3.7 (3.5-5.0) g/dL All other labs normal. Assessment and Plan (1) Renal calculi: Status: Acute (2) Sepsis: Status: Acute Plan Ureteroscopy We discussed the nature of the decision and reasonable alternatives for performing ureteroscopy. Options such as medical therapy were discussed. Interventions include chemical dissolution, ESWL, ureteroscopy with laser lithotripsy and stent placement, PCNL. The relative uncertainties and benefits related to each alternate procedure were adequately discussed. General surgical risks including, but not limited to - pain, bleeding, infection, myocardial infarction, pulmonary embolus, deep vein thrombosis and cerebrovascular accident which may result in further hospitalization were discussed. Full disclosure of the procedure as well as all major risks, benefits and complications were discussed including but not limited to damage to the urethra, bladder and kidney infection, damage to the ureter, stent migration or malposition, scarring to the renal pelvis, remnant stone fragments, subsequent stone passage with need for secondary procedures. The overall secondary procedure rate is approximately 10-15%. The overall clearance rate is approximately 90-95%. Success of the procedure in the short-term does not necessarily guarantee that long-term success will be maintained. Suitable follow up will need to be maintained. The patient showed understanding of discussion and wishes to proceed with - cystoscopy, retrograde, ureteroscopy, possible lithotripsy/stone basketing and stent on the right side Procedures Date of Service Date of Service: 06/26/24
[2024-06-26 15:05] VITALS: BP 132/78; PULSE 65; RESP 16; TEMP 36.2; O2SAT 95
--- NOTE | 2024-06-26 15:05 | MHC.CM.PN ---
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
[2024-06-26 16:29] LABS: Glucose, Whole Blood 136 mg/dL (60-115)
[2024-06-26 19:01] VITALS: BP 112/81; PULSE 69; RESP 18; TEMP 36.3; O2SAT 94
[2024-06-26 20:13] LABS: Glucose, Whole Blood 330 mg/dL (60-115)
[2024-06-26] MEDS: Atorvastatin Calcium 20 MG TABLET PO (20:53)
[2024-06-26] MEDS: cefTRIAXone sodium 1 GM VIAL IVPUSH (20:53)
[2024-06-26] MEDS: Mirtazapine 15 MG TABLET PO (20:53)
[2024-06-26] MEDS: Ferrous Sulfate 324 MG TABLET.DR PO (20:54)
[2024-06-26] MEDS: Insulin Glargine,Hum.rec.anlog 100 UNIT/ML 10 ML VIAL 36 UNIT SUBCUT (20:54)
[2024-06-26] MEDS: carvediloL 12.5 MG TABLET PO (21:00)
[2024-06-27] VITALS (10 sets, daily range): BP systolic 109–142; BP diastolic 59–89; PULSE 62–85; RESP 16–18; TEMP 36–36.7; O2SAT 93–98
[2024-06-27 07:31] LABS: Glucose, Whole Blood 131 mg/dL (60-115)
[2024-06-27] MEDS: Valsartan 40 MG TABLET 20 MG PO (07:55)
[2024-06-27] MEDS: carvediloL 12.5 MG TABLET PO ×2 (07:55→20:47)
[2024-06-27] MEDS: amLODIPine Besylate 10 MG TABLET PO (07:55)
[2024-06-27] MEDS: 0.9 % Sodium Chloride Flush 3 ML SYRINGE IVFLUSH ×3 (07:56→20:48)
[2024-06-27] MEDS: Ferrous Sulfate 324 MG TABLET.DR PO ×2 (07:56→20:47)
[2024-06-27 11:12] LABS: Glucose, Whole Blood 117 mg/dL (60-115)
--- NOTE | 2024-06-27 11:52 | P.PNIM_ITS ---
Subjective Subjective Date of Service: 06/27/24 Review of Systems Follow up bacteremia no pain, n,v,d Physical Exam 2 Vital Signs: Vital Signs: Last Vital Signs Temp 97.1 F 06/27/24 07:19 Pulse 64 06/27/24 07:19 Resp 18 06/27/24 07:19 BP 134/77 06/27/24 07:19 Pulse Ox 95 06/27/24 07:19 O2 Del Method Room Air 06/27/24 07:19 BMI result Body Mass Index 30.8 Appearing in no acute distress lung sounds are clear to auscultation heart regular rate rhythm, clear S1, S2 positive bowel sounds, abdomen is soft, nontender neuro patient is alert x3, no focal deficits Objective Data Active Medications Acetaminophen (Acetaminophen 325 Mg Tablet) 650 mg PO Q6H PRN PRN Reason: Pain, Mild 1-3,fever,headache Amlodipine Besylate (Amlodipine Besylate 10 Mg Tablet) 10 mg PO DAILY [facility]; Protocol Last Admin: 06/27/24 07:55 Dose: 10 mg Documented By: RICHA Atorvastatin Calcium (Atorvastatin Calcium 20 Mg Tablet) 20 mg PO BEDTIME [facility] Last Admin: 06/26/24 20:53 Dose: 20 mg Documented By: ESTELLA Calcium Carbonate (Calcium Carbonate 750 Mg Tab.Chew) 750 mg PO Q4H PRN PRN Reason: Heartburn Carvedilol (Carvedilol 12.5 Mg Tablet) 12.5 mg PO BID [facility]; Protocol Last Admin: 06/27/24 07:55 Dose: 12.5 mg Documented By: RICHA Ceftriaxone Sodium (Ceftriaxone Sodium 1 Gm Vial) 1 gm IVPUSH Q24H [facility] Last Admin: 06/26/24 20:53 Dose: 1 gm Documented By: ESTELLA Enoxaparin Sodium (Enoxaparin Sodium 40 Mg/0.4 Ml Syringe) 40 mg SUBCUT Q24H [facility] Last Admin: 06/26/24 20:33 Dose: Not Given Documented By: ESTELLA Non-Admin Reason: Hold per Dr Urban. Procedure tomorrow. Ferrous Sulfate (Ferrous Sulfate 324 Mg Tablet.) 324 mg PO BID [facility] Last Admin: 06/27/24 07:56 Dose: 324 mg Documented By: RICHA Glucose (Glucose Gel 15 Gm Gel..Gram.) 15 gm PO Q15M PRN; Protocol PRN Reason: per Hypoglycemia Standing Ord. Dextrose (D10) 250 mls @ 750 mls/hr IV Q15M PRN; Protocol PRN Reason: per Hypoglycemia Standing Ord. Insulin Glargine (Insulin Glargine,Hum.Rec.Anlog 100 Unit/Ml 10 Ml Vial) 36 unit SUBCUT BEDTIME [facility] Last Admin: 06/26/24 20:54 Dose: 36 unit Documented By: ESTELLA Insulin Human Lispro (Insulin Lispro 100 Unit/Ml 3 Ml Vial) 0 unit SUBCUT QIDACHS [facility]; Protocol Last Admin: 06/27/24 11:21 Dose: Not Given Documented By: FREDDIE Non-Admin Reason: No Insulin Coverage Magnesium Hydroxide (Milk Of Magnesia 30 Ml Oral.Susp) 30 ml PO DAILY PRN PRN Reason: Constipation Meclizine HCl (Meclizine Hcl 25 Mg Tablet) 25 mg PO TID PRN PRN Reason: dizziness Melatonin (Melatonin 3 Mg Tablet) 6 mg PO BEDTIME PRN PRN Reason: Insomnia Mirtazapine (Mirtazapine 15 Mg Tablet) 15 mg PO BEDTIME [facility] Last Admin: 06/26/24 20:53 Dose: 15 mg Documented By: ESTELLA Ondansetron HCl (Ondansetron Hcl 4 Mg/2 Ml Vial) 4 mg IVPUSH Q8H PRN PRN Reason: Nausea and Vomiting Oxycodone HCl (Oxycodone Hcl Immed Release 5 Mg Tablet) 5 mg PO Q8H PRN PRN Reason: severe pain Pharmacy Consult (Consult Rx Vancomycin Dosing) 1 each MISCELLANE DAILY PRN PRN Reason: Consult order Sodium Chloride (0.9 % Sodium Chloride Flush 3 Ml Syringe) 3 ml IVFLUSH QSHIFT [facility] Last Admin: 06/27/24 09:19 Dose: 3 ml Documented By: FREDDIE Valsartan (Valsartan 40 Mg Tablet) 20 mg PO DAILY [facility] Last Admin: 06/27/24 07:55 Dose: 20 mg Documented By: RICHA Labs 06/26/24 05:53 06/26/24 05:54 Labs: Laboratory Results - last 24 hr 06/26/24 06/26/24 06/27/24 16:22 20:07 05:53 Hold Purple Top SEE NOTE POC Glucose 136 H 330 H 06/27/24 06/27/24 07:18 11:05 Hold Purple Top POC Glucose 131 H 117 H Microbiology Microbiology Results: Microbiology 06/25/24 15:25 Blood Culture - Preliminary Blood - Venous No growth after 24 hours. 06/25/24 15:25 Blood Culture - Preliminary Blood - Venous No growth after 24 hours. Assessment and Plan (1) Bacteremia: Status: Acute Plan Pt is a 74-year-old Slovak-speaking male with a PMH significant for?HTN, HLD, insulin-dependent type 2 diabetes, CKD 3, resection of guest 2013, hx of gastric adenocarcinoma 2019, and BPH who presents to the ED after blood cultures drawn yesterday came back with 1 set positive for Gram-positive cocci in clusters with MRSA and staph aureus negative. Pt will be admitted to the hospital for bacteremia concerning for contamination vs sepsis from urologic source. CT of abdomen/pelvis yesterday showed moderate right hydroureteronephrosis with to 2-3 mm calculi at the UVJ Pt empirically started on vancomycin and Zosyn, started 06/25/2024, stop vanco Urology consult> plan for procedure today Coag neg Bacteremia 1/2 Blood cultures yesterday positive for gram-positive cocci in clusters, MRSA and staph aureus negative Pt currently asymptomatic without acute medical complaints contamination UTI urine cx coag neg continue abx Liver lesion CT from yesterday showed 1.2 cm hyperdense lesion of left lobe of liver Concerning for possible metastatic disease Follow up outpatient with Dr. Ferrera for possible additional workup and imaging HTN Continue amlodipine, carvedilol, lisinopril, hydrochlorothiazide HLD Continue statin Insulin-dependent type 2 diabetes Sliding scale insulin, Lantus Diabetic diet Mood disorder Continue mirtazapine Full Code Attending:?Dr. David DVT Prophylaxis: [place] Stroke Does the patient have a stroke diagnosis?: No VTE Prior VTE?: No VTE Risk Level:: Medical - moderate - high VTE Device Contraindication: Treatment Not Indicated VTE Drug Contraindication: N/A - Med Ordered
[2024-06-27] MEDS: Dextrose 5 % and 0.9 % NaCl 1,000 ML 80 ML IVCONT (12:23)
--- NOTE | 2024-06-27 13:39 | P.CDIM_ITS ---
PROVIDER RESPONSE TEXT: To clarify, the appropriate diagnosis supported by the clinical indicators: Diabetes Type 2 with hyperglycemia: . QUERY TEXT: PHYSICIAN'S DOCUMENTATION REQUEST Date of Query: 06/27/2024 12:35 PM EST Patient Name: Frantz Fink Admit Date: 06/26/2024 Dear Mimi Smith [employer], A review of the medical record indicates additional documentation may be needed. Please review below and update the documentation accordingly. Clinical Indicators: LABS: POC glucose 06/26 - 330 H Insulin-dependent type 2 Diabetes Sliding scale insulin Lantus Diabetic diet Based on the above, is there a diagnosis that correlates with these lab findings: Diabetes Type 2 with hyperglycemia resolved, possible, probable, etc Other etiology of lab finding Other (explain) Clinically unable to determine (explain) Thank you, Briseyda Ibrahim, CCS, CDIS Use of terms such as suspected, likely, concern for, or probable (associated with a specific diagnosi s that is being evaluated, monitored, or treated as if it exists) are acceptable and can be coded in the inpatient se tting, when documented at the time of discharge. Please use your independent medical judgment in providing your response. THIS QUERY IS PART OF THE PERMANENT MEDICAL RECORD
--- NOTE | 2024-06-27 14:25 | P.CONAN_ITS ---
HPI - Anesthesia Eval Consult details Narrative: 74 yo male for Cyst, ureteroscopy, retro, laser, stent placement PMFSH Active Problems Active Problems: All Active Problems Sepsis (Acute) Blood bacterial culture positive (Acute) Bacteremia (Acute) Renal calculi (Acute) Hypertension (Acute) CKD stage 3a, GFR 45-59 ml/min (Acute) Thyroid nodule (Acute) Diabetes (Acute) Abnormal nuclear stress test (Acute) Preop cardiovascular exam (Acute) Hypercholesterolemia (Acute) Hypertension (Acute) SOB (shortness of breath) (Acute) Rotator cuff arthropathy of right shoulder (Acute) Gastric adenocarcinoma (Chronic) Right shoulder pain (Acute) Iron deficiency anemia (Acute) History of colon polyps (Acute) Gastric adenocarcinoma (Acute) Gastritis (Acute) Vitamin B12 deficiency (Acute) Past Medical History Medical History Diabetes History of gastrectomy History of colon polyps Gastrointestinal stromal tumor (GIST) (~2014) Gastric adenocarcinoma Hydrocele Renal calculi Gastritis Vitamin B12 deficiency Hypercholesterolemia Hypertension Depression Family History Family History Father No problems noted. Mother History of cancer Family history of problems with anesthesia: No Surgical History Surgical History H/O lithotripsy Hx of resection of stomach Hx of esophagogastroduodenoscopy Hx of endoscopy History of hernia repair History of back surgery (~2016) History of colonoscopy (~07/22/19) History of esophagogastroduodenoscopy (EGD) (07/22/19) History of Problems with Anesthesia: No Social History Social History Household Members: Spouse Housing: Apartment Are you a primary daycare assistant to a significant other at home: No Do you presently have visiting nurse or other home services: No Alcohol intake: former Patient Tobacco Use Status: Former Tobacco user Tobacco use type: Cigarette Years Smoked: 35 Advance Directives Date on File: 06/27/24 service: No Current occupational status: retired Meds Allergies Allergy/AdvReac Type Severity Reaction Status Date / Time No Known Allergies Allergy Verified 06/27/24 14:30 [No Known Allergies*] Active Medications: Current Medications Acetaminophen (Acetaminophen 325 Mg Tablet) 650 mg PO Q6H PRN PRN Reason: Pain, Mild 1-3,fever,headache Amlodipine Besylate (Amlodipine Besylate 10 Mg Tablet) 10 mg PO DAILY [facility]; Protocol Last Admin: 06/27/24 07:55 Dose: 10 mg Atorvastatin Calcium (Atorvastatin Calcium 20 Mg Tablet) 20 mg PO BEDTIME [facility] Last Admin: 06/26/24 20:53 Dose: 20 mg Calcium Carbonate (Calcium Carbonate 750 Mg Tab.Chew) 750 mg PO Q4H PRN PRN Reason: Heartburn Carvedilol (Carvedilol 12.5 Mg Tablet) 12.5 mg PO BID [facility]; Protocol Last Admin: 06/27/24 07:55 Dose: 12.5 mg Ceftriaxone Sodium (Ceftriaxone Sodium 1 Gm Vial) 1 gm IVPUSH Q24H [facility] Last Admin: 06/26/24 20:53 Dose: 1 gm Enoxaparin Sodium (Enoxaparin Sodium 40 Mg/0.4 Ml Syringe) 40 mg SUBCUT Q24H [facility] Last Admin: 06/26/24 20:33 Dose: Not Given Ferrous Sulfate (Ferrous Sulfate 324 Mg Tablet.Dr) 324 mg PO BID [facility] Last Admin: 06/27/24 07:56 Dose: 324 mg Glucose (Glucose Gel 15 Gm Gel..Gram.) 15 gm PO Q15M PRN; Protocol PRN Reason: per Hypoglycemia Standing Ord. Dextrose (D10) 250 mls @ 750 mls/hr IV Q15M PRN; Protocol PRN Reason: per Hypoglycemia Standing Ord. Dextrose/Sodium Chloride (D5ns) 1,000 mls @ 80 mls/hr IVCONT .[id number] [facility] Last Admin: 06/27/24 12:23 Dose: 80 mls/hr Insulin Glargine (Insulin Glargine,Hum.Rec.Anlog 100 Unit/Ml 10 Ml Vial) 36 unit SUBCUT BEDTIME [facility] Last Admin: 06/26/24 20:54 Dose: 36 unit Insulin Human Lispro (Insulin Lispro 100 Unit/Ml 3 Ml Vial) 0 unit SUBCUT QIDACHS [facility]; Protocol Last Admin: 06/27/24 11:21 Dose: Not Given Magnesium Hydroxide (Milk Of Magnesia 30 Ml Oral.Susp) 30 ml PO DAILY PRN PRN Reason: Constipation Meclizine HCl (Meclizine Hcl 25 Mg Tablet) 25 mg PO TID PRN PRN Reason: dizziness Melatonin (Melatonin 3 Mg Tablet) 6 mg PO BEDTIME PRN PRN Reason: Insomnia Mirtazapine (Mirtazapine 15 Mg Tablet) 15 mg PO BEDTIME [facility] Last Admin: 06/26/24 20:53 Dose: 15 mg Ondansetron HCl (Ondansetron Hcl 4 Mg/2 Ml Vial) 4 mg IVPUSH Q8H PRN PRN Reason: Nausea and Vomiting Oxycodone HCl (Oxycodone Hcl Immed Release 5 Mg Tablet) 5 mg PO Q8H PRN PRN Reason: severe pain Pharmacy Consult (Consult Rx Vancomycin Dosing) 1 each MISCELLANE DAILY PRN PRN Reason: Consult order Sodium Chloride (0.9 % Sodium Chloride Flush 3 Ml Syringe) 3 ml IVFLUSH QSHIFT [facility] Last Admin: 06/27/24 09:19 Dose: 3 ml Valsartan (Valsartan 40 Mg Tablet) 20 mg PO DAILY [facility] Last Admin: 06/27/24 07:55 Dose: 20 mg Home Medications ?Medication ?Instructions ?Recorded ?Confirmed ?Last Taken ?Type amlodipine 10 mg tablet (Norvasc) 10 mg PO DAILY 03/27/20 06/26/24 06/23/24 History atorvastatin 20 mg tablet 20 mg PO BEDTIME 03/27/20 06/26/24 06/23/24 History calcium polycarbophil 625 mg tablet 1,250 mg PO DAILY 03/27/20 06/26/24 06/23/24 History cyanocobalamin (vitamin B-12) 1,000 mcg PO DAILY 03/27/20 06/26/24 06/23/24 History 1,000 mcg tablet mirtazapine 15 mg tablet 15 mg PO BEDTIME 02/14/21 06/26/24 06/23/24 History carvedilol 12.5 mg tablet 12.5 mg PO BID 05/29/22 06/26/24 06/23/24 History dapagliflozin propanediol 10 mg 10 mg PO DAILY 09/10/23 06/26/24 06/23/24 History tablet (Farxiga) insulin glargine 100 unit/mL (3 36 unit subcut BID 06/26/24 06/26/24 06/23/24 History mL) subcutaneous pen (Lantus Solostar U-100 Insulin) meclizine 25 mg tablet 25 mg PO TID PRN dizziness 06/26/24 06/26/24 06/23/24 History olmesartan 5 mg tablet 5 mg PO DAILY 06/26/24 06/26/24 06/23/24 History oxycodone 5 mg tablet 5 mg PO Q8H PRN severe pain 06/26/24 06/26/24 06/23/24 History Exam Height,Weight and Vital Signs: Height 5 ft 3 in Weight 79 kg Last Vital Signs Temp 97.1 F 06/27/24 07:19 Pulse 64 06/27/24 07:19 Resp 18 06/27/24 07:19 BP 134/77 06/27/24 07:19 Pulse Ox 95 06/27/24 07:19 O2 Del Method Room Air 06/27/24 07:19 Pertinent Lab Results Pertinent Lab Results: Laboratory Tests 06/25/24 06/25/24 06/25/24 15:24 15:25 21:38 WBC 17.4 H RBC 4.33 L Hgb 12.4 L Hct 36.3 L MCV 83.8 MCH 28.6 MCHC 34.2 RDW 16.4 H Plt Count 332 MPV 9.6 Immature Gran % (Auto) 0.9 H Neut % (Auto) 64.8 Lymph % (Auto) 23.2 Mora % (Auto) 10.4 Eos % (Auto) 0.5 Baso % (Auto) 0.2 Lymph # (Auto) 4.0 Mora # (Auto) 1.8 H Eos # (Auto) 0.1 Baso # (Auto) 0.0 Abs Immat Gran (auto) 0.16 H Absolute Neuts (auto) 11.3 H Absolute Nucleated RBC 0.000 Nucleated RBC % (auto) 0.0 Smear Tech's Comments VERIFIED Hold Purple Top Sodium 136 Potassium 4.2 Chloride 104 Carbon Dioxide 22 Anion Gap 14 BUN 28 H Creatinine 1.32 Estim Creat Clear Calc 44.1 Estimated GFR 53 POC Glucose 129 H Random Glucose 268 H Lactic Acid 1.3 Calcium 9.0 Magnesium 2.1 Total Bilirubin 0.3 Direct Bilirubin 0.1 AST 21 ALT 20 Alkaline Phosphatase 59 Troponin I High Sens 5.9 Total Protein 7.3 Albumin 3.7 Lipase 14 06/26/24 06/26/24 06/26/24 05:53 05:54 07:12 WBC 15.9 H RBC 4.37 L Hgb 12.3 L Hct 37.6 L MCV 86.0 MCH 28.1 MCHC 32.7 RDW 16.4 H Plt Count 334 MPV 10.3 Immature Gran % (Auto) 0.5 H Neut % (Auto) 58.7 Lymph % (Auto) 28.4 Mora % (Auto) 11.1 H Eos % (Auto) 1.0 Baso % (Auto) 0.3 Lymph # (Auto) 4.5 Mora # (Auto) 1.8 H Eos # (Auto) 0.2 Baso # (Auto) 0.1 Abs Immat Gran (auto) 0.08 H Absolute Neuts (auto) 9.4 H Absolute Nucleated RBC 0.000 Nucleated RBC % (auto) 0.0 Smear Tech's Comments VERIFIED Hold Purple Top Sodium 140 Potassium 4.8 Chloride 106 Carbon Dioxide 27 Anion Gap 12 BUN 23 H Creatinine 0.88 0.92 Estim Creat Clear Calc 68.4 65.5 Estimated GFR > 60 > 60 POC Glucose 84 Random Glucose 71 Lactic Acid Calcium 8.8 Magnesium Total Bilirubin Direct Bilirubin AST ALT Alkaline Phosphatase Troponin I High Sens Total Protein Albumin Lipase 06/26/24 06/26/24 06/26/24 11:12 16:22 20:07 WBC RBC Hgb Hct MCV MCH MCHC RDW Plt Count MPV Immature Gran % (Auto) Neut % (Auto) Lymph % (Auto) Mora % (Auto) Eos % (Auto) Baso % (Auto) Lymph # (Auto) Mora # (Auto) Eos # (Auto) Baso # (Auto) Abs Immat Gran (auto) Absolute Neuts (auto) Absolute Nucleated RBC Nucleated RBC % (auto) Smear Tech's Comments Hold Purple Top Sodium Potassium Chloride Carbon Dioxide Anion Gap BUN Creatinine Estim Creat Clear Calc Estimated GFR POC Glucose 156 H 136 H 330 H Random Glucose Lactic Acid Calcium Magnesium Total Bilirubin Direct Bilirubin AST ALT Alkaline Phosphatase Troponin I High Sens Total Protein Albumin Lipase 06/27/24 06/27/24 06/27/24 05:53 07:18 11:05 WBC RBC Hgb Hct MCV MCH MCHC RDW Plt Count MPV Immature Gran % (Auto) Neut % (Auto) Lymph % (Auto) Mora % (Auto) Eos % (Auto) Baso % (Auto) Lymph # (Auto) Mora # (Auto) Eos # (Auto) Baso # (Auto) Abs Immat Gran (auto) Absolute Neuts (auto) Absolute Nucleated RBC Nucleated RBC % (auto) Smear Tech's Comments Hold Purple Top SEE NOTE Sodium Potassium Chloride Carbon Dioxide Anion Gap BUN Creatinine Estim Creat Clear Calc Estimated GFR POC Glucose 131 H 117 H Random Glucose Lactic Acid Calcium Magnesium Total Bilirubin Direct Bilirubin AST ALT Alkaline Phosphatase Troponin I High Sens Total Protein Albumin Lipase Airway Mallampati Class: III TM Dist: >3cm Neck ROM: Full Loose/Missing/Broken Teeth: Yes (No teeth top. Only few teeth bottom front. Denies broken or loose but biting surfaces look ground down) Heart: RRR Lungs: CTAB Assessment and Plan Assessment Anesthesia Assessment: Anesthesia Plan Discussed and Chart Reviewed Final Anesthetic Review Family History of Problems with Anesthesia: No History of Problems with Anesthesia: No NPO: Yes ASA Class: III and Emergency Final Preanesthetic Review: No Changes in Pt Med Stat, Meds/Allgs Chart Reviewed, Consent Obtained/Reviewed and Anes Risks/Benef Reviewed Patient Risk: Intermediate Procedure Risk: Low Assessment/Block/Sedation in SS: Assess/Block/Sedation-SS Anesthetic Plan Anesthetic Plan: GA Disposition: Standard PACU
[2024-06-27 14:46] LABS: Glucose, Whole Blood 139 mg/dL (60-115)
[2024-06-27] MEDS: Lactated Ringers 1,000 ML 100 ML IVCONT (15:29)
--- NOTE | 2024-06-27 15:40 | MHC.CM.PN ---
Per MD rounds no dc today. Patient is planned for a surgical intervention with Dr Garrett Urologist. He is NPO. Blood Cultures are negative. Discharge is planned for tomorrow. DP Home self care. A family member will provide transportation home.
--- NOTE | 2024-06-27 15:52 | MHC.SHP ---
Pre-Procedural Eval Section A - 24 Hr Update-Section A only Date of Service: 06/27/24 The patient is an INPATIENT: Yes Changes since office visit: No Cold of Flu in the past 2 weeks, No New Medical Problems, No Changes in Medication and No Patient answered all questions The patient has been examined within 24 hours of the surgical procedure. The History & Physical has been completed within 30 days and I have reviewed it.: Yes Section B - Complete if H&P > 30 days Chief Complaint: abnormal labs Details of Present Illness: Cystoscopy, right retrograde, right ureteroscopy with laser lithotripsy Allergies: Allergies Allergy/AdvReac Type Severity Reaction Status Date / Time No Known Allergies Allergy Verified 06/27/24 14:30 [No Known Allergies*] Plan I have reviewed the history and physical and performed a pertinent physical examination on my patient. No changes have occurred unless specified. Time Spent With Patient Time: Total time managing care of this patient today ____ minutes.
[2024-06-27] MEDS: Phenazopyridine HCL 100 MG TABLET PO (16:40)
--- NOTE | 2024-06-27 16:50 | W.PM.OPN ---
Operative Note Operative Note Date of Service: 06/27/24 Narrative: PreOperative Diagnosis: Distal right ureteric stone Post Operative Diagnosis: Right hydro uretero nephrosis Procedure: - cystoscopy, right retrograde - right dilatation of ureteric orifice under fluoroscopy - right ureteroscopy, - right stent placement Surgeon: Dr Amrik Garrett Anesthesia: General Indications for procedure: Present through emergency room with 2nd presentation for right-sided flank pain. Imaging showed 5 mm distal right ureteric stone with hydro uretero nephrosis. Recommend intervention. Procedure: After informed consent was verified the patient was brought to the operating room and placed in a supine position. Anesthesia was administered per protocol. The patient was placed in a modified dorsal lithotomy position and prepped and draped in a sterile fashion. Safety pause time-out and side of surgery were confirmed. Images were available for review. Antibiotic administration confirmed. A 22 Slovenian cystoscope was inserted per urethra. The urethra was without abnormality. The bladder was normal in its entirety. Both ureteric orifices were seen in normal position - right ureteric orifice was visibly inflamed. There appeared to be a small stone posterior to the trigone. Stone was removed through the cystoscope.. The right ureteric orifice was cannulated and a retrograde examination was performed. Mild hydro uretero nephrosis was seen . A Sensor guidewire was placed up to the level of the renal pelvis under fluoroscopy. The rigid cystoscope was removed. A Cher dilator was placed over the Sensor guidewire and used to dilate the ureteric orifice under fluoroscopy. The dilator was removed. The semi rigid ureteral scope was placed alongside the Sensor guidewire. No stone was encountered. Distal ureteric inflammation was seen. Once the fragments were removed a decision was made to place a ureteric stent. Based on the height of the patient a 6 Fr x 24 cm stent was used. The string was removed from the stent prior to placement. The rigid cystoscope was backloaded over the wire and advanced into the bladder. A 6 Slovenian by 24 cm double-J stent was placed into the renal pelvis and bladder under a combination of fluoroscopy and direct visualization. Proximal positioning of the stent was confirmed using fluoroscopy. The bladder was emptied. The patient tolerated the procedure well and was extubated in the operating room. They were transferred in stable condition to the recovery area. Pathology: stones Drains: Double J stent as described above
[2024-06-27 17:00] LABS: Glucose, Whole Blood 141 mg/dL (60-115)
[2024-06-27 20:19] LABS: Glucose, Whole Blood 413 mg/dL (60-115)
[2024-06-27] MEDS: cefTRIAXone sodium 1 GM VIAL IVPUSH (20:46)
[2024-06-27] MEDS: Atorvastatin Calcium 20 MG TABLET PO (20:47)
[2024-06-27] MEDS: Enoxaparin Sodium 40 MG/0.4 ML SYRINGE SUBCUT (20:47)
[2024-06-27] MEDS: Insulin Glargine,Hum.rec.anlog 100 UNIT/ML 10 ML VIAL 36 UNIT SUBCUT (20:47)
[2024-06-27] MEDS: Mirtazapine 15 MG TABLET PO (20:47)
[2024-06-27] MEDS: Insulin Regular, Human 100 UNIT/ML 10 ML VIAL IVPUSH (20:48)
[2024-06-27] MEDS: Insulin Lispro 100 UNIT/ML 3 ML VIAL SUBCUT (20:48)
[2024-06-28 02:48] VITALS: BP 121/73; PULSE 69; RESP 17; TEMP 36.4; O2SAT 95
[2024-06-28 07:18] VITALS: BP 116/72; PULSE 70; RESP 18; TEMP 37.2; O2SAT 96
[2024-06-28 07:27] LABS: Glucose, Whole Blood 135 mg/dL (60-115)
--- NOTE | 2024-06-28 07:40 | P.DS_ITS ---
DS: Providers Provider Date of Service: 06/28/24 Date of admission: 06/25/24 20:20 Date of discharge: 06/28/24 Primary care physician: Sindy Carlson MD Consults: 06/25/24 22:22 Consult to Urology Routine Consulting Provider: [facility] Reason for consultation: right hydroureteronephrosis with to 2-3 mm calculi at the UVJ DS: Diagnosis Discharge Diagnosis (1) Bacteremia: Status: Acute DS: Summary Hospital Course Hospital Course: HP as per admitting provider. Pt is a 74-year-old Polish-speaking male with a PMH significant for?HTN, HLD, insulin-dependent type 2 diabetes, CKD 3, resection of guest 2013, hx of gastric adenocarcinoma 2019, and BPH who presents to the ED after blood cultures drawn yesterday came back with 1 set positive for Gram-positive cocci in clusters with MRSA and staph aureus negative. Pt initially presented to the ED yesterday due to RLQ abdominal pain x3 days. Workup at that time was concerning for right hydronephrosis with urinary obstruction due to ureteral calculus. UA negative at that time. Pt was discharged home on Flomax and told to follow up with Urology. Reports noticed some blood in his urine last night. But when he awoke this morning pt reports he felt ?great? with no abdominal pain. No repeat hematuria. Currently pt is asymptomatic. Nausea, vomiting, abdominal pain. Denies polyuria or dysuria. No chest pain/pressure, palpitations. Denies fever, chills. No shortness a breath or difficulty breathing. In the ED pt was afebrile but had elevated HR of 99 and variable BP as soft as 97/42. Labs were significant for leukocytosis 17.4 and creatinine 1.32 (though improved from yesterday). Stable H&H of 12.4/36.3. No significant electrolyte abnormalities. Hepatic function WNL. Troponin WNL at 5.9. Lactic acid WNL at 1.3. Pt was treated with vancomycin and Zosyn. Pt will be admitted to the hospital for bacteremia concerning for contamination vs sepsis from urologic source. 74-year-old man treated for abdominal pain secondary to moderate right hydronephrosis with renal calculi at the UVJ. Patient was empirically started on vancomycin and Zosyn. Seen and evaluated by Urology and is status post right retrograde cystoscopy, right dilatation of ureteric orifice, right ureteroscopy, right stent placement. She will need to follow up with Urology in 2 weeks for stent removal. Patient was also noted to have GPC bacteremia with 1/2 blood cultures positive, found to be coag-negative staph therefore not treated. During hospitalization treated with IV Rocephin for UTI after vancomycin and Zosyn were stopped. Liver lesion CT showed 1.2 cm hyperdense lesion of left lobe of liver Concerning for possible metastatic disease Follow up outpatient with Dr. Ferrera for possible additional workup and imaging HTN Continue amlodipine, carvedilol, lisinopril, hydrochlorothiazide HLD Continue statin Insulin-dependent type 2 diabetes Continue home medications Mood disorder Continue mirtazapine Time Attestation Discharge Coordination Time (in mins): 42 Quality: Safe Use of Opioids Does Pt have an Active Cancer Diagnosis on the Problem List?: No Quality: Stroke Does the patient have a stroke diagnosis?: No Physical Exam Vital Signs: Vital Signs: Last Vital Signs Temp 98.9 F 06/28/24 07:18 Pulse 70 06/28/24 07:18 Resp 18 06/28/24 07:18 BP 116/72 06/28/24 07:18 Pulse Ox 96 06/28/24 07:18 O2 Del Method Room Air 06/28/24 07:18 O2 Flow Rate 2 06/27/24 16:32 BMI result Body Mass Index 30.8 Appearing in no acute distress head is normocephalic atraumatic eyes pupils are PERRLA sclera is anicteric mouth throat mucous membranes are intact and moist neck is supple no lymphadenopathy, no JVD noted lung sounds are clear to auscultation heart regular rate rhythm, clear S1, S2 positive bowel sounds, abdomen is soft, nontender neuro patient is alert x3, no focal deficits DS: Data Data Completed and Pending Pending studies at discharge: Pending at discharge 06/27/24 16:10 Surgical [PTH] Routine Labs on day of discharge: Laboratory Results - last 24 hr 06/27/24 06/27/24 06/27/24 11:05 14:42 16:55 POC Glucose 117 H 139 H 141 H 06/27/24 06/28/24 20:10 07:15 POC Glucose 413 H* 135 H Preliminary micro results at discharge 06/25/24 15:25 Blood Culture - Preliminary Blood - Venous No growth after 48 hours. 06/25/24 15:25 Blood Culture - Preliminary Blood - Venous No growth after 48 hours. Discharge Plan Discharge Anticipated Discharge Date/Time: 06/28/24 07:36 Patient Disposition: Home, Self-Care Discharge Diagnosis: Distal right ureteric stone Referrals: Sindy Obrien MD [Primary Care Provider] - 1 Week Amrik Garrett MD [Physician] - 2 Weeks Christa Ferrera MD [Physician] - 1 Week (Liver lesion ) Discharge Medications: Continued atorvastatin 20 mg Tablet 20 mg PO BEDTIME cyanocobalamin (vitamin B-12) 1,000 mcg Tablet 1,000 mcg PO DAILY amlodipine [Norvasc] 10 mg Tablet 10 mg PO DAILY calcium polycarbophil 625 mg Tablet 1,250 mg PO DAILY ferrous sulfate 325 mg (65 mg iron) Tablet 325 mg PO BID Qty: 60 3RF glipizide [Glucotrol XL] 10 mg tablet extended release 24hr 10 mg PO DAILY Qty: 30 2RF meclizine 25 mg tablet 25 mg PO TID PRN (Reason: dizziness) oxycodone 5 mg tablet 5 mg PO Q8H PRN (Reason: severe pain) Rx Instructions: for right shoulder pain olmesartan 5 mg tablet 5 mg PO DAILY insulin glargine [Lantus Solostar U-100 Insulin] 100 unit/mL (3 mL) insulin pen 36 unit SUBCUT BID mirtazapine 15 mg tablet 15 mg PO BEDTIME carvedilol 12.5 mg tablet 12.5 mg PO BID dapagliflozin propanediol [Farxiga] 10 mg tablet 10 mg PO DAILY Discharge Orders: Discharge Order (Routine); Ordered 06/28/24 Ordered By: Mimi Smith Diet: Advance to usual diet Activity on Discharge: As tolerated Stand Alone Forms: Patient Portal Discharge page Print Language: Polish Care Plan Goals: Follow-up with urology in 2 weeks Follow up with oncologist for liver lesion workup Health Concerns: Distal right ureteric stone Plan of Treatment: Follow-up with primary care provider as needed Take all medications as prescribed Assessment: See discharge summary
--- NOTE | 2024-06-28 08:51 | MHC.CM.PN ---
DP: PT HAS BEEN MEDICALLY CLEARED FOR DC HOME, NO SERVICES. PT HAS OWN RIDE HOME.
[2024-06-28] MEDS: 0.9 % Sodium Chloride Flush 3 ML SYRINGE IVFLUSH (09:08)
[2024-06-28 09:09] VITALS: BP 162/84
[2024-06-28] MEDS: amLODIPine Besylate 10 MG TABLET PO (09:09)
[2024-06-28] MEDS: Valsartan 40 MG TABLET 20 MG PO (09:09)
[2024-06-28 09:10] VITALS: PULSE 81
[2024-06-28] MEDS: Ferrous Sulfate 324 MG TABLET.DR PO (09:10)
[2024-06-28] MEDS: carvediloL 12.5 MG TABLET PO (09:10)
[2024-06-28] MEDS: Acetaminophen 325 MG TABLET 650 MG PO (09:16)
--- NOTE | 2024-06-28 10:40 | PC.NURSE ---
Patient discharged by MANSI Patel
--- NOTE | 2024-06-28 11:45 | HO.POSTANES ---
Post Anesthesia Evaluation Post Anesthesia Evaluation Date of Service: 06/28/24 Vital Signs: Vital Signs Temp Pulse Resp BP Pulse Ox O2 Del Method 06/28/24 09:10 81 06/28/24 09:09 162/84 H 06/28/24 07:18 98.9 F 70 18 116/72 96 Room Air 06/28/24 02:48 97.6 F 69 17 121/73 95 Room Air Anesthesia: General Mental Status: Awake Pain Control: Satisfactory Nausea/Vomiting: None Hydration: Adequate
[2024-07-02 23:14] LABS: Stone Source RIGHT URETERAL STONE
== END 2024-06-28 10:43 | disposition home or self-care (01) | DRG 660 ==
LOC: HO.ED 17:06 → HO.EDOVER 20:34 → HO.S3 23:58
PROVIDERS: Physician Assistant Medical; Urology; Admitting Provider Student in an Organized Health Care Education/Training Program; Emergency Provider Internal Medicine; PCP Internal Medicine; Visit Provider Nurse Practitioner Acute Care
PROC: 0T768DZ Dilation of Right Ureter with Intraluminal Device, Via Natural or Artificial Opening Endoscopic (ICD-10-PCS; principal; 2024-06-27 15:00)
DX: N13.6 Pyonephrosis (principal); C78.7 Secondary malignant neoplasm of liver and intrahepatic bile duct; F39 Unspecified mood [affective] disorder; E78.5 Hyperlipidemia, unspecified; E11.65 Type 2 diabetes mellitus with hyperglycemia; N40.0 Benign prostatic hyperplasia without lower urinary tract symptoms; N18.30 Chronic kidney disease, stage 3 unspecified; E11.22 Type 2 diabetes mellitus with diabetic chronic kidney disease; Z87.891 Personal history of nicotine dependence; Z85.028 Personal history of other malignant neoplasm of stomach; Z86.14 Personal history of Methicillin resistant Staphylococcus aureus infection; Z79.4 Long term (current) use of insulin; Z79.84 Long term (current) use of oral hypoglycemic drugs; Z79.899 Other long term (current) drug therapy
CPT/HCPCS: 36415; 80048; 80076; 82365; 82565; 82947; 83605; 83690; 83735; 84484; 85025; 87040; 88300; 99285; C1758; C1769; C2617; J0131; J0696; J1650; J2003; J2405; J2543; J2704; J3010; J3370; J3371; J7120; Q9967

== ENCOUNTER → 2024-06-25 20:20 | Outpatient (BNV) | payer OTHER, SELFPAY | PROVIDERS: Admitting Provider Student in an Organized Health Care Education/Training Program; Emergency Provider Internal Medicine; PCP Internal Medicine; Visit Provider Student in an Organized Health Care Education/Training Program | DX: R78.81 Bacteremia (principal) | CPT/HCPCS: 99222; 99232; 99239 ==

== ENCOUNTER → 2024-06-25 20:20 | Outpatient (BNV) | payer OTHER, SELFPAY | PROVIDERS: Admitting Provider Student in an Organized Health Care Education/Training Program; Emergency Provider Internal Medicine; PCP Internal Medicine; Visit Provider Urology | DX: N20.0 Calculus of kidney (principal); A41.9 Sepsis, unspecified organism | CPT/HCPCS: 52332; 74420; 99223 ==

== ENCOUNTER 2024-07-19 10:09 | Outpatient (REF) | payer OTHER, SELFPAY ==
--- OUTSIDE RECORDS SUMMARY | 2024-07-19 11:15 | XMS_ITS | Encounter Summary ---
Author Organization [facility] Address [address] [place] [address] Care Team Providers Care User Interface Artist Name Role Phone Sindy Obrien MD Primary Care Provide r Reason for Visit * Reason Comments Med Refill Encounter Details Date Type Department Care Team (Late Contact Info) Description 10/29/2022 Refill [facility] [address] [place] [address] [facility] [address] [place] [address] Depressive disorder Social History Tobacco Use Types Packs/Day Years Used Date Smoking Tobacco: Former Cigarettes Smokeless Tobacco: Never Alcohol Use Standard Drinks/Week Comments Never 0 (1 standard drink = 0.6 oz pur e alcohol) Depression Answer Date Recorded Patient Health Questionnaire-9 Score 0 10/23/2022 Depression Answer Date Recorded Patient Health Questionnaire-2 Score 0 10/23/2022 Sex and Gender Information Value Date Recorded Sex Assigned at Male 04/07/2022 10:32 AM EDT Legal Sex Male 10:32 AM EDT Gender Identity Male 04/07/2022 10:32 AM EDT Sexual Orientation Straight 04/07/2022 10 :32 AM EDT COVID-19 Exposure Response Date Recorded In the last 10 days, have yo u been in contact with someone who was confirmed or suspected to have Coronavirus/COVID-19? No / Unsure 10/23/2022 2:52 PM EDT documented as of this encounter Plan of Treatment Upcoming Encounters Date Type Department Care Team (Late Contact Info) Description 07/28/2024 9:00 AM EST Medication Management [address] [address] Edgard Dasilva, AtiyaD [address] [place] [address] 09/12/2024 1:00 PM EDT Clinical Support [address] [address] 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, MANSI documented as of this encounter Visit Diagnoses Diagnosis Depressive disorder Depressive disorder, not elsewhere classified documented in this encounter Additional Health Concerns Assessment Noted Time PHQ-9 Depression Total Score: 0 10/24/19 23 3:05 PM EDT documented as of this encounter Care Teams User Interface Artist Relationship Specialty Start Date End Date Sindy Obrien MD [address] [place] [id number] PCP - General Family Medicine 03/28/19 documented as of this encounter
--- OUTSIDE RECORDS SUMMARY | 2024-07-19 11:15 | XMS_ITS | Encounter Summary ---
Author Organization [employer] Address [address] [facility] [address] [facility] [address] [place] [address] Care Team Providers Care 6Th Grade Teacher Name Role Phone Sindy Obrien MD Primary Care Provide r Reason for Visit * Reason Comments Med Refill Encounter Details Date Type Department Care Team ([facility] st Contact Info) Description 04/26/2023 Refill [facility] [address] [place] [address] Sindy Obrien MD [address] [place] [address] HTN (hypertension), benign Social History Tobacco Use Types Packs/Day Years Used Date Smoking Tobacco: Former Cigarettes Passive Smoke Exposure: Current Smokeless Tobacco: Never Alcohol Use Standard Drinks/Week Comments Never 0 (1 standard drink = 0.6 oz pur e alcohol) Depression Answer Date Recorded Patient Health Questionnaire-9 Score 0 10/23/2022 Housing Stability Answer Date Recorded What is your housing situation today? I have marjan montelongo 03/31/[address] you li ve. Do you have problems with any of the following? None of the above 03/31/2023 Food Insecurity Answer Date Recorded Within the past 12 months, y ou worried that your food would run out before you got money to buy more: Never True 03/31/2023 Within the past 12 months,th e food you bought just didn't last and you didn't have enough money to get more: Never True Transportation Answer Date Recorded In the past 12 months, has l ack of transportation kept you from medical appts, meetings, work or from getting things needed for daily living? Yes, it has kept me from medical appointments or getting medications. 03/19/2023 Utilities Answer Date Recorded In the past 12 months, has t he electric, gas, oil or water company threatened to shut off services in your home? No 03/31/2023 Depression Answer Date Recorded Patient Health Questionnaire-2 Score 0 10/23/2022 Sex and Gender Information Value Date Recorded Sex Assigned at Male 04/07/2022 10:32 AM EDT Legal Sex Male 10:32 AM EDT Gender Identity Male 04/07/2022 10:32 AM EDT Sexual Orientation Straight 04/07/2022 10 :32 AM EDT documented as of this encounter Plan of Treatment Upcoming Encounters Date Type Department Care Team (Late st Contact Info) Description 07/28/2024 9:00 AM EST Medication Management [address] [address] Edgard Dasilva, PharmD [address] [place] [phone] 09/12/2024 1:00 PM EDT Clinical Support [address] [address] 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, MANSI documented as of this encounter Visit Diagnoses Diagnosis HTN (hypertension), benign Essential hypertension, benign documented in this encounter Additional Health Concerns Assessment Noted Time PHQ-9 Depression Total Score: 0 10/24/19 23 3:05 PM EDT documented as of this encounter Care Teams 6Th Grade Teacher Relationship Specialty Start Date End Date Sindy Obrien MD [address] [place] [phone] PCP - General Family Medicine 03/28/19 documented as of this encounter
--- OUTSIDE RECORDS SUMMARY | 2024-07-19 11:15 | XMS_ITS | Encounter Summary ---
Author Organization [employer] Address [address] [facility] [address] 7[address] [place] [address] Care Team Providers Care Clerical Transcriber Name Role Phone Sindy Obrien MD Primary Care Provide r Reason for Visit * Reason Comments Back Pain Encounter Details Date Type Department Care Team ([facility] Contact Info) Description 06/24/2024 9:00 AM EST Office Visit [facility] [address] [place] [address] Gregor Sarmiento MD [address] [place], [place] [phone] RLQ abdominal pain (Primary Dx) Social History Tobacco Use Types Packs/Day Years Used Date Smoking Tobacco: Former Cigarettes Passive Smoke Exposure: Past Smokeless Tobacco: Never Alcohol Use Standard Drinks/Week Comments Never 0 (1 standard drink = 0.6 oz pur e alcohol) Depression Answer Date Recorded Patient Health Questionnaire-9 Score 0 06/06/2024 Patient Health Questionnaire-9 Score 0 06/06/2024 Last PHQ-9: Questionnaire Data Not on file 1 Housing Stability Answer Date Recorded What is your housing situation today? I have marjan montelongo 11/13/[address] you li ve. Do you have problems with any of the following? None of the above 11/13/2023 Food Insecurity Answer Date Recorded Within the past 12 months, y ou worried that your food would run out before you got money to buy more: Never True 11/13/2023 Within the past 12 months,th e food you bought just didn't last and you didn't have enough money to get more: Never True 12/2023 Transportation Answer Date Recorded In the past 12 months, has l ack of transportation kept you from medical appts, meetings, work or from getting things needed for daily living? No 11/13/2023 Utilities Answer Date Recorded In the past 12 months, has t he electric, gas, oil or water company threatened to shut off services in your home? No 11/13/2023 Depression Answer Date Recorded Patient Health Questionnaire-2 Score 0 06/06/2024 Sex and Gender Information Value Date Recorded Sex Assigned at Male 04/07/2022 10:32 AM EDT Legal Sex Male 10:32 AM EDT Gender Identity Male 04/07/2022 10:32 AM EDT Sexual Orientation Straight 04/07/2022 10 :32 AM EDT documented as of this encounter Last Filed Vital Signs Vital Sign Reading Time Taken Comments Blood Pressure 142/77 06/24/2024 9:00 AM EST Pulse 80 06/24/2024 9:00 AM EST Temperature 36.7 ??C (98.1 ??F) 06/24/2024 9:00 AM ES T Respiratory Rate 16 06/24/2024 9:00 AM EST Oxygen Saturation 97% 06/24/2024 9:00 AM EST Inhaled Oxygen Concentration - - Weight 78.5 kg (173 lb) 06/24/2024 9:00 AM EST Height - - Body Mass Index 30.65 06/06/2024 1:16 PM EST documented in this encounter Progress Notes * Gregor Sarmiento MD - 06/24/2024 9:00 AM EST Subjective History was provided by the patient. Frantz Mccormack is a 74 y.o. male who presents for evaluation of 2-day duration of RLQ abdominalpain. Reports stabbing pain. No associated F/C/N/V/D. Last BM was 4 days ago. Denies any LLQ pain. No BRBPR or melena. No change in recent medications. Distant history of abdominal surgery for gastric cancer. Objective Vitals: 06/24/24 0900 BP: (!) 142/77 BP Location: Right arm Patient Position: Sitting BP Cuff Size: Adult Pulse: 80 Resp: 16 Temp: 98.1 ??F (36.7 ??C) TempSrc: Temporal SpO2: 97% Weight: 173 lb (78.5 kg) Physical Exam Vitals reviewed. Constitutional: Appearance: Normal appearance. HENT: Head: Normocephalic and atraumatic. Right Ear: External ear normal. Left Ear: External ear normal. Nose: Nose normal. Mouth/Throat: Mouth: Mucous membranes are moist. Pharynx: Oropharynx is clear. Eyes: Extraocular Movements: Extraocular movements intact. Conjunctiva/sclera: Conjunctivae normal. Cardiovascular: Rate and Rhythm: Normal rate and regular rhythm. Heart sounds: Normal heart sounds. Pulmonary: Effort: Pulmonary effort is normal. Breath sounds: Normal breath sounds. Abdominal: General: Abdomen is flat. There is no distension. Palpations: Abdomen is soft. Tenderness: There is abdominal tenderness (RLQ pain). There is no right CVA tenderness, left CVA tenderness, guarding or rebound. Musculoskeletal: Cervical back: Normal range of motion and neck supple. Skin: General: Skin is warm and dry. Neurological: Mental Status: He is alert and oriented to person, place, and time. Psychiatric: Mood and Affect: Mood normal. Behavior: Behavior normal. Thought Content: Thought content normal. Judgment: Judgment normal. No visits with results within 2 Day(s) from this visit. Latest known visit with results is: Orders Only on 06/10/2024 Component Date Value Ref Range Status Sodium 06/10/2024 138 135 - 145 mmol/L Final Potassium 06/10/2024 4.1 3.3 - 5.1 mmol/L Final Chloride 06/10/2024 107 96 - 108 mmol/L Final Carbon Dioxide 06/10/2024 26 22 - 29 mmol/L Final Anion Gap 06/10/2024 9 (L) 12 - 20 Final Urea Nitrogen (BUN) 06/10/2024 10 9 - 16 mg/dL Final Creatinine, Serum 06/10/2024 1.13 0.5 - 1.4 mg/dL Final Estimated Glomerular Filt Rate 06/10/2024 >60 Final Chronic Kidney Disease: Estimated GFR < 60 mL/min/1.85l2Mdpqai Kidney Disease: Estimated GFR < 15 mL/min/1.73m2 Frantz was seen today for back pain. Diagnoses and all orders for this visit: RLQ abdominal pain (Primary) Patient presents to [facility] due to 2-day duration of RLQ abdominal pain No rebound or guarding, but exquisite tenderness at the McBurney's point Denies F/C/N/V/D Discussed further work up and treatment options Will refer to [facility] for rule out appendicitis Patient will travel via private vehicle [facility] contacted to coordinate care Patient understands and agrees to the plan documented in this encounter Plan of Treatment Upcoming Encounters Date Type Department Care Team (Late st Contact Info) Description 07/28/2024 9:00 AM EST Medication Management [address] [address] Edgard Dasilva, Nithya [address] [place] [phone] 09/12/2024 1:00 PM EDT Clinical Support [address] [address] 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, RN documented as of this encounter Goals Goal Patient Goal Type Associated Problems Recent Progress Patient-Stated? Author Hemoglobin A1c < 8 Result Component 11.9( 4 1:19 PM EST) No Caroline Neri PharmD documented as of this encounter Visit Diagnoses Diagnosis RLQ abdominal pain- Primary Abdominal pain, right lower quadrant documented in this encounter Additional Health Concerns Assessment Noted Time PHQ-9 Depression Total Score: 0 06/06/20 24 1:16 PM EST documented as of this encounter Care Teams Clerical Transcriber Relationship Specialty Start Date End Date Sindy Obrien MD [address] [place] [phone] PCP - General Family Medicine 03/28/19 documented as of this encounter
--- OUTSIDE RECORDS SUMMARY | 2024-07-19 11:15 | XMS_ITS | Encounter Summary ---
Author Organization [employer] Address [address] [facility] [address] 7[address] [place] [address] Care Team Providers Care Utilities And Maintenance Supervisor Name Role Phone Sindy Obrien MD Primary Care Provide r Reason for Visit * Reason Comments Med Refill Encounter Details Date Type Department Care Team ([facility] st Contact Info) Description 09/03/2023 Refill [facility] [address] [place] [address] Sindy Obrien MD 230 [place] [address] Chronic right shoulder pain Social History Tobacco Use Types Packs/Day Years [...] Description 07/28/2024 9:00 AM EST Medication Management [address] [address] Edgard Dasilva, PharmD [address] [place] [address] 09/12/2024 1:00 PM EDT Clinical Support [address] [address] 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 RN documented as of this encounter Visit Diagnoses Diagnosis Chronic right shoulder pain Pain in joint, shoulder region documented in this encounter Additional Health Concerns Assessment Noted Time PHQ-9 Depression Total Score: 0 10/24/19 23 3:05 PM EDT documented as of this encounter Care Teams Utilities And Maintenance Supervisor Relationship Specialty Start Date End Date Sindy Obrien MD [address] [place] [phone] PCP - General Family Medicine 03/28/19 documented as of this encounter
--- OUTSIDE RECORDS SUMMARY | 2024-07-19 11:15 | XMS_ITS | Encounter Summary ---
Author Organization [facility] Address [address] [facility] 7t [place] [address] Care Team Providers Care Data Communications Engineer Name Role Phone Sindy Obrien MD Primary Care Provide r Encounter Details Date Type Department Care Team (Late Contact Info) Description 02/13/2023 Orders Only [address] [address] Provider, MD Oren Social History Tobacco Use Types Packs/Day Years [...] Description 07/28/2024 9:00 AM EST Medication Management [address] [phone] Edgard Dasilva, PharmD [address] [place] [phone] 09/12/2024 1:00 PM EDT Clinical Support [address] [phone] 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, RN documented as of this encounter Procedures Procedure Name Priority Date/Time Associated Diagnosis Comments COLONOSCOPY Routine 01/23/2023 documented in this encounter Results * Colonoscopy (01/23/2023) us Historical Provider HEALTH MAINTENANCE Final Result documented in this encounter Visit Diagnoses Not on filedocumented in this encounter Additional Health Concerns Assessment Noted Time PHQ-9 Depression Total Score: 0 10/24/19 23 3:05 PM EDT documented as of this encounter Care Teams Data Communications Engineer Relationship Specialty Start Date End Date Sindy Obrien MD [address] [place] [phone] PCP - General Family Medicine 03/28/19 documented as of this encounter
--- OUTSIDE RECORDS SUMMARY | 2024-07-19 11:15 | XMS_ITS | Encounter Summary ---
Author Organization [employer] Address [address] [facility] [address] [address] 7t [place] [address] Care Team Providers Care Statistical Programmer Analyst Name Role Phone Sindy Obrien MD Primary Care Provide r Reason for Visit * Reason Comments Med Refill Encounter Details Date Type Department Care Team ([facility] st Contact Info) Description 06/02/2023 Refill [facility] [address] [place] [address] Sindy Obrien MD 230 [place] [address] Vitamin D deficiency, unspecified Social History Tobacco Use Types Packs/Day Years [...] Description 07/28/2024 9:00 AM EST Medication Management [address] [address] Edgard Dasilva, PharmD [address] [place] [address] 09/12/2024 1:00 PM EDT Clinical Support [address] [address] 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, MANSI documented as of this encounter Visit Diagnoses Diagnosis Vitamin D deficiency, unspecified documented in this encounter Additional Health Concerns Assessment Noted Time PHQ-9 Depression Total Score: 0 10/24/19 23 3:05 PM EDT documented as of this encounter Care Teams Statistical Programmer Analyst Relationship Specialty Start Date End Date Sindy Obrien MD [address] [place] [phone] PCP - General Family Medicine 03/28/19 documented as of this encounter
--- OUTSIDE RECORDS SUMMARY | 2024-07-19 11:15 | XMS_ITS | Encounter Summary ---
Author Organization [employer] Address [address] [facility] [address] 7t [place] [address] Care Team Providers Care Pumper Brewery Name Role Phone Sindy Obrien MD Primary Care Provide r Reason for Visit * Reason Comments Med Refill Encounter Details Date Type Department Care Team ([facility] st Contact Info) Description 05/20/2024 Refill [facility] [address] [place], [place] [phone] Sindy Obrien MD 230 [place] [address] HTN (hypertension), benign; Type 2 diabetes mellitus with hyperglycemia, with long-term current use of insulin ([facility]) Social History Tobacco Use Types Packs/Day Years [...] Description 07/28/2024 9:00 AM EST Medication Management [address] [address] Edgard Dasilva, AtiyaD [address] [place] [phone] 09/12/2024 1:00 PM EDT Clinical Support [address] [address] 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, MANSI documented as of this encounter Goals Goal Patient Goal Type Associated Problems Recent Progress Patient-Stated? Author Hemoglobin A1c < 8 Result Component 11.9( 1:19 PM EST) No Caroline Neri, Nithya documented as of this encounter Visit Diagnoses Diagnosis HTN (hypertension), benign Essential hypertension, benign Type 2 diabetes mellitus with hyperglycemia, with long-term current use of insulin ([facility]) documented in this encounter Additional Health Concerns Assessment Noted Time PHQ-9 Depression Total Score: 0 10/24/19 23 3:05 PM EDT documented as of this encounter Care Teams Pumper Brewery Relationship Specialty Start Date End Date Sindy Obrien MD [address] [place] [phone] PCP - General Family Medicine 03/28/19 documented as of this encounter
--- OUTSIDE RECORDS SUMMARY | 2024-07-19 11:15 | XMS_ITS | Encounter Summary ---
Author Organization [facility] Address [address] [facility] 7t [place] [address] Care Team Providers Care Outreach Team Member Name Role Phone Sindy Obrien MD Primary Care Provide r Reason for Visit * Reason Comments MANAGER SUPPLY CHAIN RV MANAGER SUPPLY CHAIN RV Encounter Details Date Type Department Care Team (Latest Contact Info) Description 07/12/2024 1:00 PM EST Clinical Support [facility] MED[facility]INE [address] [place] [address] 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 RN Chronic right shoulder pain (Primary Dx) Social History Tobacco Use [...] AM EDT documented as of this encounter Progress Notes * 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 RN - 07/12/2024 1:00 PM EST S: Pt here for Revisit, interpretation provided by Jessy Hill Prescribed Oxycodone 5mg Q8hr PRN.States he has been taking 3-4 doses a day, last dose taken was yesterday. C/O recent kidney stone pain and had been taking an extra dose during that time. Denies smoking cigarettes, ETOH use, Illicitdrug use and marijuana use. Currently rates his pain an 8 and states medication is 90% effective atalleviating his pain. Current pain sites are his hands. O: MANAGER SUPPLY CHAIN Tier 2. Pt currently prescribed Oxycodone 5mg Q8hr PRN. [employer] DEPARTMENT SUPERVISOR verified today. Rx last filled on 06/17/24. Pill count performed. Pt has 2 oxycodone remaining, anticipated he would have at least 8.Reviewed his oxycodone order. Reminded him that he should only be taking 1 Q8hr PRN. If he feels like his pain has increased, he needs to call and speak with his PCP about his pain medication before increasing his dose. Pt stated he understood. Reminded him his refill date is 07/15/24. UTOX completed. Positive for OXY, Negative for AMP, BAR, BUP, BZO, SIVAKUMAR, FTY, MDMA, MET, MOP, MTD, PCP, TCA, THC. UTOX as expected. Will send oxycodone refill request to covering provider and update on oxycodone count. Last PCP visit was 06/06/24. A: MANAGER SUPPLY CHAIN Contract Revisit: Chronic Opioid use related to pain. P: Pt to continue taking medication only as prescribed; Next MANAGER SUPPLY CHAIN RV appointment scheduled for 09/12/24 @ 1pm, F/U sooner PRN. Appointment reminder given. Pt verbalized understanding and agreed to plan. . documented in this encounter Plan of Treatment Upcoming Encounters Date Type Department Care Team (Late st Contact Info) Description 07/28/2024 9:00 AM EST Medication Management [address] [address] Edgard Dasilva, PharmD [address] [place] [address] 09/12/2024 1:00 PM EDT Clinical Support [address] [address] 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, RN documented as of this encounter Goals Goal Patient Goal Type Associated Problems Recent Progress Patient-Stated? Author Hemoglobin A1c < 8 Result Component 11.9( 1:19 PM EST) No Caroline Neri, PharmD documented as of this encounter Procedures Procedure Name Priority Date/Time Associated Diagnosis Comments POCT VELASQUEZ-14 URINE DRUG SCREEN Routine 07/12/2024 1:05 PM EST Chronic right shoulder pain documented in this encounter Results * POCT VELASQUEZ-14 Urine Drug Screen (07/12/2024 1:05 PM EST) Oxycodone Screen, Urine Positive Urine Urine specimen obtained by clean catch procedure / Unknown 07/12/2024 1:05 PM EST Narrative 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, MANSI - 07/12/2024 1:05 PM EST UTOX cup Lot#[id number] Exp. 03/02/26 Internal Pass Control us Sindy Carlson MD POINT OF CARE TEST EN TER/EDIT ORDERABLES Final Result documented in this encounter Visit Diagnoses Diagnosis Chronic right shoulder pain- Primary Pain in joint, shoulder region documented in this encounter Additional Health Concerns Assessment Noted Time PHQ-9 Depression Total Score: 0 06/06/20 24 1:16 PM EST documented as of this encounter Care Teams Outreach Team Member Relationship Specialty Start Date End Date Sindy Obrien MD [address] [place] [address] PCP - General Family Medicine 03/28/19 documented as of this encounter
--- OUTSIDE RECORDS SUMMARY | 2024-07-19 11:15 | XMS_ITS | Encounter Summary ---
Author Organization [employer] Address [address] [facility] 7t [place] [address] Care Team Providers Care Drum Worker Name Role Phone Sindy Obrien MD Primary Care Provide r Encounter Details Date Type Department Care Team (Latest Contact Info) Description 07/12/2024 Travel Social History Tobacco Use Types Packs/Day Years [...] Description 07/28/2024 9:00 AM EST Medication Management [address] [address] Edgard Dasilva, PharmD [address] [place] [phone] 09/12/2024 1:00 PM EDT Clinical Support [address] [address] 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, MANSI documented as of this encounter Goals Goal Patient Goal Type Associated Problems Recent Progress Patient-Stated? Author Hemoglobin A1c < 8 Result Component 11.9( 4 1:19 PM EST) No Caroline Neri, PharmD documented as of this encounter Visit Diagnoses Not on filedocumented in this encounter Additional Health Concerns Assessment Noted Time PHQ-9 Depression Total Score: 0 06/06/20 24 1:16 PM EST documented as of this encounter Care Teams Drum Worker Relationship Specialty Start Date End Date Sindy Obrien MD [address] [place] [phone] PCP - General Family Medicine 03/28/19 documented as of this encounter
--- OUTSIDE RECORDS SUMMARY | 2024-07-19 11:15 | XMS_ITS | Encounter Summary ---
Author Organization [employer] Address [address] [place] [address] Care Team Providers Care Truck Sales Representative Name Role Phone Sindy Obrien MD Primary Care Provide r Encounter Details Date Type Department Care Team (Late st Contact Info) Description 06/24/2024 Orders Only GENERIC EXTERNAL DATA DEPARTMENT Provider, Generic External Data Social History Tobacco Use Types Packs/Day Years [...] Description 07/28/2024 9:00 AM EST Medication Management [address] [address] Edgard Dasilva, AtiyaD [address] [place] [phone] 09/12/2024 1:00 PM EDT Clinical Support [address] [address] 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 RN documented as of this encounter Goals Goal Patient Goal Type Associated Problems Recent Progress Patient-Stated? Author Hemoglobin A1c < 8 Result Component 11.9( 1:19 PM EST) No Caroline Neri, AtiyaD documented as of this encounter Procedures Procedure Name Priority Date/Time Associated Diagnosis Comments URINALYSIS, COMPLETE, WITH REFLEX TO CULTURE Routine 06/24/2024 3:39 PM EST CULTURE, URINE, ROUTINE Routine 06/24/2024 3:39 PM EST BLOOD CULTURE (FIRST) Routine 06/24/2024 3:24 PM EST BLOOD CULTURE (SECOND) Routine 3:24 PM EST LACTIC ACID Routine 06/24/2024 3:[address] ABDOMEN PELVIS WO CONTRAST Routine 06/24/2024 1:21 PM EST CBC WITH AUTO DIFFERENTIAL Routine 06/24/2024 10:08 AM EST LIPASE Routine 06/24/2024 10:08 AM EST HEPATIC FUNCTION PANEL Routine 10:08 AM EST COMPREHENSIVE METABOLIC PANEL Routine 06/24/2024 10:08 AM EST documented in this encounter Results * Culture, Urine, Routine (06/24/2024 3:39 PM EST) Urine Urine specimen obtained by clean catch procedure / Unknown 06/24/2024 3:39 PM EST 06/24/2024 4:29 PM EST Comment:UACC Narrative [facility] - 06/26/2024 11:47 AM EST Coag negative Staphylococcus Quant 50,000 to 100,000 cfu/mL Susc N/A Susceptibility not routinely performed on this isolate. Specimen Source: Urine clean catch us Generic External Data Provider LAB MICROBIOLOGY - GENERAL ORDERABLES Final Result Performing Organization Address City/State/[facility] Co de Phone Number [facility] [address] [place] [phone] * (ABNORMAL) Urinalysis, Complete, with Reflex to Culture (06/24/2024 3:39 PM EST) Color Urine Yellow [facility] Appearance Urine Cloudy [facility] PH 5.5 5.0 - 9.0 [facility] Glucose Urine UA >=1000(A) Negative mg/dL [facility] Urine Blood Large (3+)(A) Negative [facility] Specific [place] - Urine >=1.030(H) 1.005 - 1.025 [facility] Urine Protein 30 (1+)(A) Neg-Trace mg/dL [facility] Urine Ketones Negative Negative mg/dL [facility] Nitrite Urine Negative Negative [facility] Leukocyte Esterase Urine Trace(A) Negative [facility] RBC Urine >20(A) 0 - 2 /HPF [facility] Urine WBC 11-20(A) 0 - 5 /HPF [facility] Urine Squamous Epithelial Cell 0-2 0 - 2 /HPF [facility] Urine Bacteria None Seen None Seen [facility] Hyaline Casts, Urine 0-2 0 - 2 /LPF [facility] 06/24/2024 3:39 PM EST 06/24/2024 3:41 PM EST Narrative [facility] - 06/24/2024 4:00 PM EST [id number], Clean Catch Generic External Data Provider LAB URINE ORDERAB LES Final Result Performing Organization Address City/[facility]/ZIP Co de Phone Number [facility] [address] [place] [phone] * Blood Culture (First) (06/24/2024 3:24 PM EST) Blood Venous blood specimen / Unknown 06/24/2024 3:24 PM EST 06/24/2024 3:29 PM EST Comment:Blood [facility] - 06/29/2024 5:29 PM EST Blood Culture (First) No growth after 5 days. Specimen Source: Blood Generic External Data Provider LAB MICROBIOLOGY - GENERAL ORDERABLES Final Result Performing Organization Address City/[facility] Co de Phone Number [facility] [address] [place] [phone] * Blood Culture (Second) (06/24/2024 3:24 PM EST) Blood Venous blood specimen / Unknown 06/24/2024 3:24 PM EST 06/24/2024 3:29 PM EST Comment:Blood [facility] - 06/26/2024 8:43 AM EST Blood Culture (Second) null Blood Culture (Second) null Blood Culture (Second) null Blood Culture (Second) null Blood Culture (Second) null Blood Culture (Second) null Blood Culture (Second) null Blood Culture (Second) null Blood Culture (Second) null Blood Culture (Second) BC Positive/Drawn Blood Culture (Second) 1 set positive/2 sets drawn Blood Culture (Second) GS - on external report Blood Culture (Second) Gram-positive cocci in clusters Blood Culture (Second) MRSA PCR Blood Culture (Second) MRSA: Negative, SA: Negative Coag negative Staphylococcus CBLD STANEG comment Unlikely pathogen; call Micro if full workup indicated. Results of Blood Culture gram stain and PCR result called to and read back by MITZI at 1415 on 06/25/24 by SANTOS. Specimen Source: Blood Generic External Data Provider LAB MICROBIOLOGY - GENERAL ORDERABLES Final Result Performing Organization Address [facility] de Phone Number [facility] [address] [place] [phone] * Lactic Acid (06/24/2024 3:24 PM EST) Lactic Acid 1.8 0.5 - 2.0 mmol/L [facility] 06/24/2024 3:24 PM EST 06/24/2024 3:29 PM EST Generic External Data Provider LAB BLOOD ORDERAB LES Final Result Performing Organization Address [facility] de Phone Number [facility] [address] [place] [address] [phone] * CT Abdomen Pelvis w/o Contrast (06/24/2024 1:21 PM EST) Anatomical Region Laterality Modality Body, Pelvis, Abdomen Computed T omography 06/24/2024 1:21 PM EST Narrative 06/24/2024 2:15 PM EST ? [facility] ?[address] ?[place] [address] ? CT Scan Report ? Signed ? Patient: Junior Colon,Frantz ?MR#: [id number] ?? [id number] ? : 1950 ?Acct:[id number] ? Age/Sex: 74 / M ?ADM Date: 01/17/25 ? Loc: HO.ED ? Attending Dr: ? Ordering Physician: Lissette Staley DO ?? Date of Service: 06/24/24 ?? Procedure(s): CT abdomen pelvis wo IV con ?? Accession Number(s): [id number] ? cc: Sindy Obrien MD; Lissette Staley DO ? Report Number: ?? [id number]: Total DLP = ??481.00 mGy-cm ?? EXAMINATION: ??CT ABDOMEN PELVIS WITHOUT IV CONTRAST ? HISTORY: RLQ pain WBC count 21 ? COMPARISON: Comparison is made with the prior examination dated ?? 09/07/2023. ? TECHNIQUE: CT scan of the abdomen and pelvis was performed without ?? contrast using standard departmental protocol. ?? Coronal and sagittal ?? reformatted images were generated and reviewed. ??Oral contrast material ?? was not administered per department protocol. ? This CT exam was performed with one or more of the following dose ?? reduction techniques: automated exposure control, adjustment of the mA ?? and/or kV according to patient size, use of iterative reconstruction ?? technique. ? DLP: 481 mGy-cm ? FINDINGS: ? LOWER CHEST: The visualized lung bases are clear. There is no pleural ?? effusion. ? CARDIOVASCULATURE: The heart is normal in size. ??There is no ?? pericardial effusion. ? LIVER: ??The liver is normal in size and contour. ??There is ?? heterogeneous decreased attenuation in the left lobe of the liver. ?? There is a 1.2 cm hyperdense lesion along the undersurface of the left ?? lobe. This was not definitely present on the prior study. There is a 10 ?? mm probable cyst in the right lobe. ? GALLBLADDER / BILE DUCTS: ??The gallbladder is unremarkable. There is no ?? intra or extrahepatic biliary ductal dilatation. ? SPLEEN: The spleen is normal in size and has an unremarkable unenhanced ?? appearance. ? PANCREAS: The pancreas has an unremarkable unenhanced appearance. ? ADRENAL GLANDS: Unremarkable. ? KIDNEYS/RETROPERITONEUM: There are punctate nonobstructing calculi in ?? the interpolar region and at the lower pole of the right kidney. There ?? is moderate right hydroureteronephrosis to the level of two adjacent ?? 2-3 mm calculi at the UVJ. There is no left hydronephrosis or ?? hydroureter. There is a 3.2 cm cyst at the upper pole of the right ?? kidney and a 3.5 cm cyst at the upper pole of the left kidney. ? LYMPH NODES: ??No retroperitoneal lymphadenopathy is identified in the ?? abdomen or pelvis. ? VASCULATURE: ??The abdominal aorta demonstrates atherosclerotic ?? calcification, but is normal in caliber. ? MESENTERY/PERITONEUM: No free fluid. No masses. ??There is no free ?? intraperitoneal gas. ? STOMACH: ??Postsurgical changes are noted involving the stomach. ? SMALL BOWEL: ?? The small bowel is normal in caliber. A small bowel ?? anastomosis is noted in the left mid abdomen. ? COLON: ??The colon is unremarkable. ? APPENDIX: ??Normal. ? URINARY BLADDER/PELVIC ORGANS: The urinary bladder is unremarkable. ? The prostate is mildly enlarged. ? BONES / SOFT TISSUES: ??No suspicious bony or soft tissue abnormalities. ? CT/CT abdomen pelvis wo IV con ?? IMPRESSION: ? 1. Moderate right hydroureteronephrosis to the level of two adjacent ?? 2-3 mm calculi at the UVJ. ? 2. 1.2 cm hyperdense lesion along the undersurface of the left lobe of ?? the liver. This is in the region of markedly heterogeneous decreased ?? attenuation. Given the history of prior gastric carcinoma, metastatic ?? disease is not excluded. Outpatient MRI of the liver without and with ?? contrast is recommended. ? Electronically signed by: ??Dusty Henley MD ??06/24/2024 02:12 PM EST ?? RP ? Dictated By: ?Dusty Henley MD ? Signed By: ?<Electronically signed by Dusty Henley MD in OV> ?06/24/24 1412 ? DD/ 1321 ? TD/TT: 06/24/24 1358 ? Radar Scientist: ? Procedure Note Aminata More - 06/24/[address] [place] [address] [address] [address] Scan Report Signed Patient: Frantz FinkMR#: [id number] : 1950cct:[id number] Age/Sex: 74 / MADM Date: 06/24/24 Loc: HO.ED Attending Dr: Ordering Physician: Lissette Staley DO Date of Service: 06/24/24 Procedure(s): CT abdomen pelvis wo IV con Accession Number(s): [id number] cc: Sindy Obrien MD; Lissette Staley DO Report Number: [id number]: Total DLP = 481.00 mGy-cm EXAMINATION: CT ABDOMEN PELVIS WITHOUT IV CONTRAST HISTORY: RLQ pain WBC count 21 COMPARISON: Comparison is made with the prior examination dated 09/07/2023. TECHNIQUE: CT scan of the abdomen and pelvis was performed without contrast using standard departmental protocol. Coronal and sagittal reformatted images were generated and reviewed. Oral contrast material was not administered per department protocol. This CT exam was performed with one or more of the following dose reduction techniques: automated exposure control, adjustment of the mA and/or kV according to patient size, use of iterative reconstruction technique. DLP: 481 mGy-cm FINDINGS: LOWER CHEST: The visualized lung bases are clear. There is no pleural effusion. CARDIOVASCULATURE: The heart is normal in size. There is no pericardial effusion. LIVER: The liver is normal in size and contour. There is heterogeneous decreased attenuation in the left lobe of the liver. There is a 1.2 cm hyperdense lesion along the undersurface of the left lobe. This was not definitely present on the prior study. There is a 10 mm probable cyst in the right lobe. GALLBLADDER / BILE DUCTS: The gallbladder is unremarkable. There is no intra or extrahepatic biliary ductal dilatation. SPLEEN: The spleen is normal in size and has an unremarkable unenhanced appearance. PANCREAS: The pancreas has an unremarkable unenhanced appearance. ADRENAL GLANDS: Unremarkable. KIDNEYS/RETROPERITONEUM: There are punctate nonobstructing calculi in the interpolar region and at the lower pole of the right kidney. There is moderate right hydroureteronephrosis to the level of two adjacent 2-3 mm calculi at the UVJ. There is no left hydronephrosis or hydroureter. There is a 3.2 cm cyst at the upper pole of the right kidney and a 3.5 cm cyst at the upper pole of the left kidney. LYMPH NODES: No retroperitoneal lymphadenopathy is identified in the abdomen or pelvis. VASCULATURE: The abdominal aorta demonstrates atherosclerotic calcification, but is normal in caliber. MESENTERY/PERITONEUM: No free fluid. No masses. There is no free intraperitoneal gas. STOMACH: Postsurgical changes are noted involving the stomach. SMALL BOWEL: The small bowel is normal in caliber. A small bowel anastomosis is noted in the left mid abdomen. COLON: The colon is unremarkable. APPENDIX: Normal. URINARY BLADDER/PELVIC ORGANS: The urinary bladder is unremarkable. The prostate is mildly enlarged. BONES / SOFT TISSUES: No suspicious bony or soft tissue abnormalities. CT/CT abdomen pelvis wo IV con IMPRESSION: 1. Moderate right hydroureteronephrosis to the level of two adjacent 2-3 mm calculi at the UVJ. 2. 1.2 cm hyperdense lesion along the undersurface of the left lobe of the liver. This is in the region of markedly heterogeneous decreased attenuation. Given the history of prior gastric carcinoma, metastatic disease is not excluded. Outpatient MRI of the liver without and with contrast is recommended. Electronically signed by: Dusty Henley MD 06/24/2024 02:12 PM EST Dictated By: Dusty Henley MD Signed By: <Electronically signed by Dusty Henley MD in OV> 06/24/24 1412 DD/ 1321 TD/TT: 06/24/24 1358 Radar Scientist: [facility] External Provider IMG CT PROCEDURES Edited Result - Final * (ABNORMAL) Lipase (06/24/2024 10:08 AM EST) Lipase 5(L) 8 - 78 U/L [facility] 06/24/2024 10:0 8 AM EST 06/24/2024 10:15 AM EST Generic External Data Provider LAB BLOOD ORDERAB LES Final Result [facility] [address] [place] [phone] * Hepatic Function Panel (06/24/2024 10:08 AM EST) Bilirubin, Direct 0.2 0.0 - 0.5 mg/dL [facility] 06/24/2024 10:0 8 AM EST 06/24/2024 10:15 AM EST us Generic External Data Provider LAB BLOOD ORDERAB LES Final Result Performing Organization Address [facility]/ZIP Co de Phone Number [facility] [address] [place] [phone] * (ABNORMAL) Comprehensive Metabolic Panel (06/24/2024 10:08 AM EST) Sodium 137 135 - 145 mmol/L [facility] Potassium 4.8 3.3 - 5.1 mmol/L [facility] Chloride 105 96 - 108 mmol/L [facility] Carbon Dioxide 26 22 - 29 mmol/L [facility] Anion Gap 11(L) 12 - 20 [facility] Urea Nitrogen (BUN) 25(H) 9 - 16 mg/dL [facility] Creatinine, Serum 1.42(H) 0.5 - 1.4 mg/dL [facility] Creatinine Clr Calc Pharmacy 42.2 [facility] Comment:eGFR (calculated fro m the MDRD study equation) and eCrCl(calculated from the Cockcroft-Gault equation) are based ondifferent parameters and may not yield comparable results.If eCrCl result is absurd, please check patient'sheight/weight. Estimated Glomerular Filt Rate 49 [facility] Comment:Chronic Kidney Disea se: Estimated GFR < 60 mL/min/[id number] Kidney Disease: Estimated GFR < 15 mL/min/1.73m2 Glucose 314(H) 60 - 115 mg/dL [facility] Calcium 9.4 8.4 - 10.2 mg/dL [facility] Bilirubin, Total 0.4 0.0 - 1.0 mg/dL [facility] Aspartate Amino Transferase 19 5 - 37 U/L [facility] Alanine Aminotransferase 24 0 - 40 U/L [facility] Total Protein 8.0 6.5 - 8.0 g/dL [facility] Albumin Level 4.0 3.5 - 5.0 g/dL [facility] Alkaline Phosphatase 66 39 - 117 U/L [facility] 06/24/2024 10:0 8 AM EST 06/24/2024 10:15 AM EST us Generic External Data Provider LAB BLOOD ORDERAB LES Final Result [facility] [address] [place] [phone] * (ABNORMAL) CBC auto differential (06/24/2024 10:08 AM EST) White Blood Count 21.3(H) 4.8 - 10.8 X10*3/uL [facility] Red Blood Count 4.71 4.60 - 5.80 X10*6/uL [facility] Hemoglobin 13.3(L) 14.0 - 18.0 g/dl [facility] Hematocrit 39.2(L) 42.0 - 52.0 % [facility] Mean Corpuscular Volume 83.2 80.0 - 98.0 fL [facility] Mean Corpuscular Hemoglobin 28.2 27.0 - 33.0 pg [facility] Mean Corpuscular HGB Conc 33.9 31.0 - 36.0 g/dl [facility] Red Cell Distribution Width 16.0 11.0 - 16.0 % [facility] Platelet Count 360 160 - 400 X10*3/uL [facility] Mean Platelet Volume 9.5 9.4 - 12.4 fL [facility] Neutrophils Percent Auto 81.3(H) 45 - 73 % [facility] Imm Gran Pct Auto 1.3(H) 0.0 - 0.4 % [facility] Lymphocytes Percent Auto 10.7(L) 20 - 40 % [facility] Monocytes Percent Auto 6.5 2 - 11 % [facility] Eosinophils Percent Auto 0.0 0 - 4 % [facility] Basophils Percent Auto 0.2 0 - 2 % [facility] NRBC Pct Auto 0.0 0.0 - 0.2 /100WBC [facility] Neutrophils Absolute Auto 17.3(H) 2.0 - 8.3 x10*3/uL [facility] Imm Gran Abs Auto 0.27(H) 0.00 - 0.03 X10*3/uL [facility] Lymphocytes Absolute Auto 2.3 1.2 - 4.9 X10*3/uL [facility] Monocytes Absolute Auto 1.4(H) 0.1 - 1.2 X10*3/uL [facility] Eosinophils Absolute Auto 0.0 0.0 - 0.4 X10*3/uL [facility] Basophils Absolute Auto 0.0 0.0 - 0.2 X10*3/uL [facility] NRBC Abs Auto 0.000 0.0 - 0.012 X10*3/uL [facility] 06/24/2024 10:0 8 AM EST 06/24/2024 10:15 AM EST us Generic External Data Provider LAB BLOOD ORDERAB LES Final Result Performing Organization Address City/State/[facility] Co de Phone Number [facility] [address] [place] [phone] documented in this encounter Visit Diagnoses Not on filedocumented in this encounter Additional Health Concerns Assessment Noted Time PHQ-9 Depression Total Score: 0 06/06/20 24 1:16 PM EST documented as of this encounter Care Teams Truck Sales Representative Relationship Specialty Start Date End Date Sindy Obrien MD [address] [place] [phone] PCP - General Family Medicine 10/21/19 documented as of this encounter
--- OUTSIDE RECORDS SUMMARY | 2024-07-19 11:15 | XMS_ITS | Encounter Summary ---
Author Organization [employer] Address [address] [place] [address] Care Team Providers Care Fulfillment Representative Name Role Phone Sindy Obrien MD Primary Care Provide r Encounter Details Date Type Department Care Team ([facility] st Contact Info) Description 06/20/2024 Refill [facility] [address] [place], [place] [phone] Sindy Obrien MD [address] [place] [address] Primary hypertension Social History Tobacco Use Types Packs/Day Years [...] Description 07/28/2024 9:00 AM EST Medication Management [address] [address] Edgard Dasilva, AtiyaD [address] [place] [phone] 09/12/2024 1:00 PM EDT Clinical Support [address] [address] 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, MANSI documented as of this encounter Goals Goal Patient Goal Type Associated Problems Recent Progress Patient-Stated? Author Hemoglobin A1c < 8 Result Component 11.9( 1:19 PM EST) No Caroline Neri, AtiyaD documented as of this encounter Visit Diagnoses Diagnosis Primary hypertension Unspecified essential hypertension documented in this encounter Additional Health Concerns Assessment Noted Time PHQ-9 Depression Total Score: 0 06/06/20 24 1:16 PM EST documented as of this encounter Care Teams Fulfillment Representative Relationship Specialty Start Date End Date Sindy Obrien MD [address] [place] [phone] PCP - General Family Medicine 03/28/19 documented as of this encounter
--- OUTSIDE RECORDS SUMMARY | 2024-07-19 11:15 | XMS_ITS | Encounter Summary ---
Author Organization [employer] Address [address] [facility] [address] [place] [address] Care Team Providers Care Food Packer Name Role Phone Sindy Obrien MD Primary Care Provide r Reason for Visit * Reason Onset Date Comments Med Refill 07/12/2024 Encounter Details Date Type Department Care Team (Late st Contact Info) Description 07/12/2024 Refill [facility] [address] [place] [address] 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 RN Chronic right shoulder pain Social History Tobacco [...] AM EDT documented as of this encounter Miscellaneous Notes * Telephone Encounter - 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 RN - 07/12/2024 1:10 PM EST Pt had [employer] appt today Oxycodone count was 2, anticipated 8. He stated he was taking an additional dose during his kidney stone pain. Advised to take as prescribed and call PCP before increasing his own dose documented in this encounter Plan of Treatment Upcoming Encounters Date Type Department Care Team (Late st Contact Info) Description 07/28/2024 9:00 AM EST Medication Management [facility] [address] [place] [phone] Edgard Dasilva PharmD [address] [place] [phone] 09/12/2024 1:00 PM EDT Clinical Support [facility] [address] [place] [phone] 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, RN documented as of this [...] documented as of this encounter Care Teams Food Packer Relationship Specialty Start Date End Date Sindy Obrien MD [address] [place] [phone] PCP - General Family Medicine 03/28/19 documented as of this encounter
--- OUTSIDE RECORDS SUMMARY | 2024-07-19 11:15 | XMS_ITS | Encounter Summary ---
Author Organization [employer] Address [address] [place] [address] Care Team Providers Care Equipment Washer Name Role Phone Sindy Obrien MD Primary Care Provide r Encounter Details Date Type Department Care Team ([facility] st Contact Info) Description 09/03/2023 Orders Only [facility] [address] [place] [address] Sindy Obrien MD [address] [place] [address] Chronic right shoulder pain (Primary Dx) Social [...] 07/28/2024 9:00 AM EST Medication Management [address] [address] Edgard Dasilva, PharmD [address] [place] [phone] 09/12/2024 1:00 PM EDT Clinical Support [address] [address] 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 RN documented as of this encounter Procedures Procedure Name Priority Date/Time Associated Diagnosis Comments CT CHEST W CONTRAST Routine 09/07/2023 1 2:27 PM EDT STRESS TEST WITH MYOCARDIAL PERFUSION Routine 09/04/2023 8:15 AM EDT documented in this encounter Results * CT Chest w/ Contrast (09/07/2023 12:27 PM EDT) Anatomical Region Laterality Modality Body, Chest Computed Tomogra phy 09/07/2023 12:2 7 PM EDT Narrative 09/08/2023 11:17 AM EDT ? [facility] ?[address] ?[place] [address] ? CT Scan Report ? Signed ? Patient: Junior Colon,Frantz ?MR#: [id number] ?? [id number] ? : 1950 ?Acct:[id number] ? Age/Sex: 73 / M ?ADM Date: 09/07/23 ? Loc: HO.CT ? Attending Dr: Christa Ferrera MD ? Ordering Physician: Christa Ferrera MD ?? Date of Service: 09/07/23 ?? Procedure(s): CT chest w IV con ?? Accession Number(s): [id number] ? cc: Sindy Obrien MD; Christa Ferrera MD ? STUDY: IV contrast-enhanced CT of the chest, abdomen and pelvis, ?? 09/07/2023. ? INDICATION: Malignant neoplasm of stomach, lower abdominal pain ? COMPARISON: 04/01/2023 ? TECHNIQUE: Continuous helical imaging obtained through the chest, ?? abdomen and pelvis following 85 mL Omnipaque 350 IV contrast without ?? adverse effect. No oral contrast administered. Reconstructed images ?? performed in the coronal and sagittal planes. MIP axial images of the ?? chest performed. ? This CT examination was performed using dose optimization techniques as ?? appropriate, variously including the following: ?? *Automated exposure control ?? *Adjustment of mA and/or kV according to patient size (this includes ?? techniques or standardized protocols for targeted exams where dose is ?? matched to indication/reason for exam; i.e. extremities or head) ?? *Use of iterative reconstruction technique ? TOTAL EXAM DLP: ?? 392 mGy-cm ? FINDINGS: ? TRUCK TRAILER MECHANIC: Enlarged superior mediastinum. Clear lungs. Nonobstructive bowel ?? pattern. ? LUNGS: Trachea and bronchi are patent. Paraseptal emphysema and cystic ?? changes right lung apex. Scattered atelectasis and mild dependent right ?? lower lobe atelectasis. No consolidations, groundglass opacities or ?? suspicious nodules. ? PLEURA: No thickening, effusions or pneumothoraces. ? MEDIASTINUM/LYMPH NODES: Redemonstration enlarged substernal thyroid ?? with possible 1.4 cm right lower pole hypodense nodule versus ?? lobulation. No pathologic mediastinal or hilar lymphadenopathy. ?? Nonspecific axillary lymph nodes. ? HEART AND GREAT VESSELS: Heart size within normal limits. No ?? pericardial effusion is seen. Degree of coronary calcifications: Mild. ?? Tunneled right internal jugular chest port with internal tip in the ?? distal superior vena cava. ?? Atherosclerotic calcifications identified about nonaneurysmal aorta and ?? branch vessels. Pulmonary arteries are not dilated. ?? Nonaneurysmal aorta with atherosclerotic calcifications. ? HEPATOBILIARY: Diffuse mild hypodensity density to the liver ?? parenchyma. Too small to characterize posterior medial right hepatic ?? hypodensity, unchanged from 09/02/2021 having shown enlargement from ?? 07/18/2019. Interval appearing hepatic hypodensity seen on 04/01/2023 ?? not appreciated on current examination. Unremarkable gallbladder. No ?? intra or extrahepatic biliary ductal dilatation. ? SPLEEN, ADRENAL GLANDS: Unremarkable. ? KIDNEYS, URETERS AND BLADDER: Symmetrically perfused kidneys. Multiple ?? bilateral renal cysts, largest on the right measuring 3.2 cm, on the ?? left, 3.5 cm. Probable right vascular calcification. No renal calculi. ?? 3-4 mm distal right ureteral calculus has migrated from previous ?? proximal ureteral location. No hydroureteronephrosis. Unremarkable ?? urinary bladder. ? GASTROINTESTINAL: Small hiatal hernia. Small caliber stomach with ?? anastomotic suture lines. Nonobstructive bowel pattern. Unremarkable ?? appendix. Moderate fecal retention. ? PELVIC ORGANS: Prominent enhancing prostate. Phleboliths. ? ABDOMINAL/PELVIC VESSELS: Atherosclerotic calcifications nonaneurysmal ?? aorta. Normal caliber inferior vena cava. Patent portal system. ? LYMPH NODES: Nonspecific mesenteric lymph nodes, largest measuring 9 mm ?? in the right mesentery. No pathologic lymphadenopathy. ? OSSEOUS STRUCTURES: No suspicious lesions. Hypertrophic bone adjacent ?? to the right greater trochanter. ? SPINAL COMPRESSION: Absent. ? SOFT TISSUES: Unremarkable. ? CT/CT chest w IV con ?? IMPRESSION: ?? No CT evidence of metastatic disease chest, abdomen and pelvis. ?? Stable postoperative stomach, patient with history of gastric cancer. ?? Redemonstration enlarged heterogeneous thyroid with possible right ?? lower lobe nodule for which ultrasound was previously recommended but ?? to my knowledge has not been performed. ?? 3-4mm distal right ureteral calculus without associated proximal ?? hydroureteronephrosis. ? Dictated By: ?Tiffany Lyons MD ? Signed By: ?<Electronically signed by Tiffany Lyons MD in OV> ?09/08/23 1113 ? DD/ 1227 ? TD/TT: ? Metal Cnc Operator: ? Procedure Note Donotuseinterpreter, Image - 09/08/[address] [address] [address] Scan Report Signed Patient: Frantz FinkMR#: [id number] : 1950cct:[id number] Age/Sex: 73 / MADM Date: 09/07/23 Loc: HO.CT Attending Dr: Christa Ferrera MD Ordering Physician: Christa Ferrera MD Date of Service: 09/07/23 Procedure(s): CT chest w IV con Accession Number(s): [id number] cc: Sindy Obrien MD; Christa Ferrera MD STUDY: IV contrast-enhanced CT of the chest, abdomen and pelvis, 09/07/2023. INDICATION: Malignant neoplasm of stomach, lower abdominal pain COMPARISON: 04/01/2023 TECHNIQUE: Continuous helical imaging obtained through the chest, abdomen and pelvis following 85 mL Omnipaque 350 IV contrast without adverse effect. No oral contrast administered. Reconstructed images performed in the coronal and sagittal planes. MIP axial images of the chest performed. This CT examination was performed using dose optimization techniques as appropriate, variously including the following: *Automated exposure control *Adjustment of mA and/or kV according to patient size (this includes techniques or standardized protocols for targeted exams where dose is matched to indication/reason for exam; i.e. extremities or head) *Use of iterative reconstruction technique TOTAL EXAM DLP: 392 mGy-cm FINDINGS: TRUCK TRAILER MECHANIC: Enlarged superior mediastinum. Clear lungs. Nonobstructive bowel pattern. LUNGS: Trachea and bronchi are patent. Paraseptal emphysema and cystic changes right lung apex. Scattered atelectasis and mild dependent right lower lobe atelectasis. No consolidations, groundglass opacities or suspicious nodules. PLEURA: No thickening, effusions or pneumothoraces. MEDIASTINUM/LYMPH NODES: Redemonstration enlarged substernal thyroid with possible 1.4 cm right lower pole hypodense nodule versus lobulation. No pathologic mediastinal or hilar lymphadenopathy. Nonspecific axillary lymph nodes. HEART AND GREAT VESSELS: Heart size within normal limits. No pericardial effusion is seen. Degree of coronary calcifications: Mild. Tunneled right internal jugular chest port with internal tip in the distal superior vena cava. Atherosclerotic calcifications identified about nonaneurysmal aorta and branch vessels. Pulmonary arteries are not dilated. Nonaneurysmal aorta with atherosclerotic calcifications. HEPATOBILIARY: Diffuse mild hypodensity density to the liver parenchyma. Too small to characterize posterior medial right hepatic hypodensity, unchanged from 09/02/2021 having shown enlargement from 07/18/2019. Interval appearing hepatic hypodensity seen on 04/01/2023 not appreciated on current examination. Unremarkable gallbladder. No intra or extrahepatic biliary ductal dilatation. SPLEEN, ADRENAL GLANDS: Unremarkable. KIDNEYS, URETERS AND BLADDER: Symmetrically perfused kidneys. Multiple bilateral renal cysts, largest on the right measuring 3.2 cm, on the left, 3.5 cm. Probable right vascular calcification. No renal calculi. 3-4 mm distal right ureteral calculus has migrated from previous proximal ureteral location. No hydroureteronephrosis. Unremarkable urinary bladder. GASTROINTESTINAL: Small hiatal hernia. Small caliber stomach with anastomotic suture lines. Nonobstructive bowel pattern. Unremarkable appendix. Moderate fecal retention. PELVIC ORGANS: Prominent enhancing prostate. Phleboliths. ABDOMINAL/PELVIC VESSELS: Atherosclerotic calcifications nonaneurysmal aorta. Normal caliber inferior vena cava. Patent portal system. LYMPH NODES: Nonspecific mesenteric lymph nodes, largest measuring 9 mm in the right mesentery. No pathologic lymphadenopathy. OSSEOUS STRUCTURES: No suspicious lesions. Hypertrophic bone adjacent to the right greater trochanter. SPINAL COMPRESSION: Absent. SOFT TISSUES: Unremarkable. CT/CT chest w IV con IMPRESSION: No CT evidence of metastatic disease chest, abdomen and pelvis. Stable postoperative stomach, patient with history of gastric cancer. Redemonstration enlarged heterogeneous thyroid with possible right lower lobe nodule for which ultrasound was previously recommended but to my knowledge has not been performed. 3-4mm distal right ureteral calculus without associated proximal hydroureteronephrosis. Dictated By: Tiffany Lyons MD Signed By: <Electronically signed by Tiffany Lyons MD in OV> 09/08/23 1113 DD/ 1227 TD/TT: Metal Cnc Operator: [facility] External Provider IMG CT PROCEDURES Final Result * Stress test with myocardial perfusion (09/04/2023 8:15 AM EDT) 09/04/2023 8:15 AM EDT Narrative [facility] - 09/04/2023 3:44 PM EDT ? [facility] ?[address] ?[place] [address] ?Nuclear Medicine Report ? Signed ? Patient: Junior Colon,Frantz ?MR#: [id number] ?? [id number] ? : 1950 ?Acct:[id number] ? Age/Sex: 73 / M ?ADM Date: 09/03/23 ? Loc: HO.CARD ? Attending Dr: Amanda SCOTT ? Ordering Physician: Amanda De La Paz ?? Date of Service: 09/03/23 ?? Procedure(s): NM cardiolite stress test ?? Accession Number(s): [id number] ? cc: Sindy Obrien MD; Amanda De La Paz ? Myocardial perfusion study ? Indication: ?? Shortness of breath evaluate for myocardial ischemia ? Technique: ? The patient was brought in for a Lexiscan perfusion study on ?? 09/03/2023. Patient performed low-level exercise and was injected 0.4 ?? mg of Lexiscan intravenously. Within a minute of injection, 25 mCi of ?? sestamibi was given intravenously. Images were obtained using the SPECT ?? gamma camera interlaced with the gating device. Images were obtained in ?? supine position. ? Resting perfusion study was performed on 09/04/2023. Patient was ?? administered 25 mCi of sestamibi intravenously at rest. Images were ?? then obtained in supine position. ? Images obtained with and without CT attenuation. Total DLP 111 mGy-cm ? Images were processed with the software and compared side to side in ?? short axis, horizontal long axis and vertical long axis views. ? Findings: ? The stress perfusion study showed ??non attenuated images show mildly to ?? moderately reduced uptake in the basal and mid inferior wall of the LV ?? myocardium. Remainder of the LV myocardium is normally perfused. ?? Attenuation corrected images shows thinning and mildly reduced uptake ?? in the inferior wall of the LV myocardium.. The gated study shows ?? normal LV systolic function with calculated LVEF of 70%. LV cavity is ?? normal in size. The gated study shows normal systolic ??wall thickening ?? and contraction of segments. ? Resting study shows non attenuated images show mildly reduced uptake in ?? the basal and mid inferior wall of the LV myocardium. Attenuation ?? corrected images show normal uptake in the inferior wall of the LV ?? myocardium.. Gating at rest reveals normal systolic wall motion with ?? ejection fraction at 54%. ? The findings are consistent with basal attenuated corrected images ?? there is mild intensity reversible defect of the basal and mid inferior ?? wall suggestive of ischemia.. ? NM/NM cardiolite stress test ?? Impression: ? 1. ??Myocardial perfusion imaging study shows mild intensity basal and ?? mid inferior wall ischemia ?? 2. ??Gated LVEF is 70% ?? 3. Transient ischemic dilatation not present ? EKG is nondiagnostic for ischemia ? Dictated By: ?Frederick Serrano MD ? Signed By: ?<Electronically signed by Frederick Serrano MD in OV> ?09/04/23 1540 ? DD/ 0815 ? TD/TT: ? Metal Cnc Operator: ? Procedure Note Aminata More - 09/04/2023 [place] [address] Nuclear Medicine Report Signed Patient: Frantz FinkMR#: [id number] : 1950cct:[id number] Age/Sex: 73 / MADM Date: 09/03/23 Loc: ALLIE Attending Dr: Amanda SCOTT Ordering Physician: Amanda De La Paz Date of Service: 09/03/23 Procedure(s): NM cardiolite stress test Accession Number(s): [id number] cc: Sindy Obrien MD; Amanda De La Paz Myocardial perfusion study Indication: Shortness of breath evaluate for myocardial ischemia Technique: The patient was brought in for a Lexiscan perfusion study on 09/03/2023. Patient performed low-level exercise and was injected 0.4 mg of Lexiscan intravenously. Within a minute of injection, 25 mCi of sestamibi was given intravenously. Images were obtained using the SPECT gamma camera interlaced with the gating device. Images were obtained in supine position. Resting perfusion study was performed on 09/04/2023. Patient was administered 25 mCi of sestamibi intravenously at rest. Images were then obtained in supine position. Images obtained with and without CT attenuation. Total DLP 111 mGy-cm Images were processed with the software and compared side to side in short axis, horizontal long axis and vertical long axis views. Findings: The stress perfusion study showed non attenuated images show mildly to moderately reduced uptake in the basal and mid inferior wall of the LV myocardium. Remainder of the LV myocardium is normally perfused. Attenuation corrected images shows thinning and mildly reduced uptake in the inferior wall of the LV myocardium.. The gated study shows normal LV systolic function with calculated LVEF of 70%. LV cavity is normal in size. The gated study shows normal systolic wall thickening and contraction of segments. Resting study shows non attenuated images show mildly reduced uptake in the basal and mid inferior wall of the LV myocardium. Attenuation corrected images show normal uptake in the inferior wall of the LV myocardium.. Gating at rest reveals normal systolic wall motion with ejection fraction at 54%. The findings are consistent with basal attenuated corrected images there is mild intensity reversible defect of the basal and mid inferior wall suggestive of ischemia.. NM/NM cardiolite stress test Impression: 1. Myocardial perfusion imaging study shows mild intensity basal and mid inferior wall ischemia 2. Gated LVEF is 70% 3. Transient ischemic dilatation not present EKG is nondiagnostic for ischemia Dictated By: Frederick Serrano MD Signed By: <Electronically signed by Frederick Serrano MD in OV> 09/04/23 1540 DD/ 0815 TD/TT: Metal Cnc Operator: us [facility] External Provider CV STRE SS PROCEDURES Edited Result - Final [facility] [address] [place] [phone] documented in this encounter Visit Diagnoses Diagnosis Chronic right shoulder pain- Primary Pain in joint, shoulder region documented in this encounter Additional Health Concerns Assessment Noted Time PHQ-9 Depression Total Score: 0 10/24/19 23 3:05 PM EDT documented as of this encounter Care Teams Equipment Washer Relationship Specialty Start Date End Date Sindy Obrien MD [address] [place] [address] PCP - General Family Medicine 03/28/19 documented as of this encounter
--- OUTSIDE RECORDS SUMMARY | 2024-07-19 11:15 | XMS_ITS | Encounter Summary ---
Author Organization [employer] Address [address] [place] [address] Care Team Providers Care Take Away Attendant Name Role Phone Sindy Obrien MD Primary Care Provide r Reason for Visit * Reason Onset Date Comments Recommend RETIREMENT ACTUARY Tier 2 07/12/2024 Encounter Details Date Type Department Care Team ([facility] st Contact Info) Description 07/12/2024 Telephone [facility] [address] [place] [address] 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, MANSI Recommend RETIREMENT ACTUARY Tier 2 Social History Tobacco Use Types Packs/Day Years [...] Encounter - 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 RN - 07/12/2024 7:47 AM EST What RETIREMENT ACTUARY Tier would you like this patient to be? I recommend Tier 2, please let me know if you agree or would rather patient be in another RETIREMENT ACTUARY Tier. Tier 1 = HIGH RISK, Monthly RETIREMENT ACTUARY visits Tier 2 = MODerate RISK, Q3 Month visits Tier 3 = LOW RISK = Q4-6 month visits documented in this encounter Plan of Treatment Upcoming Encounters Date Type Department Care Team (Late st Contact Info) Description 07/28/2024 9:00 AM EST Medication Management [address] [address] Edgard Dasilva PharmD [address] [place] [phone] 09/12/2024 1:00 PM EDT Clinical Support [facility] [address] [place] [address] 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, RN documented as of this [...] documented as of this encounter Care Teams Take Away Attendant Relationship Specialty Start Date End Date Sindy Obrien MD [address] [place] [address] PCP - General Family Medicine 03/28/19 documented as of this encounter
--- OUTSIDE RECORDS SUMMARY | 2024-07-19 11:15 | XMS_ITS | Encounter Summary ---
Author Organization [employer] Address [address] [facility] [address]t [place] [address] Care Team Providers Care Polisher Balance Screwhead Name Role Phone Sindy Obrien MD Primary Care Provide r Reason for Visit * Reason Onset Date Comments FYI 11/18/2023 Encounter Details Date Type Department Care Team ([facility] Contact Info) Description 11/18/2023 Telephone [facility] [address] [place], [place] [phone] Sindy Obrien MD [address] [place], [place] [phone] FYI Social History Tobacco Use Types Packs/Day Years [...] encounter Miscellaneous Notes * Telephone Encounter - Ele Jensen - 11/18/2023 10:58 AM EDT Tc from [place] with Dr Leslie (orthopedics) calling to inform they are going to be prescribing 2 weeks of Oxy 10MG after surgery. documented in this encounter Plan of Treatment Upcoming Encounters Date Type Department Care Team (Late st Contact Info) Description 07/28/2024 9:00 AM EST Medication Management [address] [address] Edgard Dasilva PharmD [address] [place] [phone] 09/12/2024 1:00 PM EDT Clinical Support [address] [address] 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 RN documented as of this encounter Goals Goal Patient Goal Type Associated Problems Recent Progress Patient-Stated? Author Hemoglobin A1c < 8 Result Component 11.9( 1:19 PM EST) No Caroline Neri PharmD documented as of this encounter Visit Diagnoses Not on filedocumented in this encounter Additional Health Concerns Assessment Noted Time PHQ-9 Depression Total Score: 0 10/24/19 23 3:05 PM EDT documented as of this encounter Care Teams Polisher Balance Screwhead Relationship Specialty Start Date End Date Sindy Obiren MD [address] [place] [phone] PCP - General Family Medicine 03/28/19 documented as of this encounter
--- OUTSIDE RECORDS SUMMARY | 2024-07-19 11:15 | XMS_ITS | Encounter Summary ---
Author Organization [employer] Address [address] [facility] [address] [address] Care Team Providers Care Clothing Manager Name Role Phone Sindy Obrien MD Primary Care Provide r Reason for Visit * Reason Comments Med Refill Encounter Details Date Type Department Care Team ([facility] st Contact Info) Description 12/15/2023 Refill [facility] [address] [place] [address] Sindy Obrien MD [address] [place] [address] Chronic right shoulder pain Social History Tobacco [...] Description 07/28/2024 9:00 AM EST Medication Management [address] [address] Edgard Dasilva, PharmD [address] [place] [phone] 09/12/2024 1:00 PM EDT Clinical Support [address] [address] 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, RN documented as of this [...] documented as of this encounter Care Teams Clothing Manager Relationship Specialty Start Date End Date Sindy Obrien MD [address] [place] [phone] PCP - General Family Medicine 03/28/19 documented as of this encounter
--- OUTSIDE RECORDS SUMMARY | 2024-07-19 11:15 | XMS_ITS | Clinical Summary ---
Author Organization [facility] Address [address] [place] [address] Care Team Providers Care Typesetting Machine Operator/Tender Name Role Phone Sindy Obrien MD Primary Care Provide r Allergies No known active allergies Medications metFORMIN (GLUCOPHAGE) 500 MG tablet Take 500 mg by mouth in the morning and 500 mg in the evening. Take with meals. 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/26/2022 Hypertension 03/26/2022 Type 2 diabetes mellitus wit h diabetic chronic kidney disease 03/26/2022 Lung mass 01/18/2018 03/08/2023 Social History Tobacco Use Types Packs/Day Years Used Date Smoking Tobacco: Former Cigarettes Smokeless Tobacco: Never Tobacco Cessation:Counseling Given: No Sex and Gender Information Value Date Recorded Sex Assigned at Not on file Legal Sex Male 1:21 PM EDT Gender Identity Not on file Sexual Orientation Not on file Last Filed Vital Signs Vital Sign Reading Time Taken Comments Blood Pressure 142/84 09/08/2022 10:32 AM EDT Pulse 86 09/08/2022 10:32 AM EDT Temperature - - Respiratory Rate - - Oxygen Saturation - - Inhaled Oxygen Concentration - - Weight 79.4 kg (175 lb) 09/08/2022 10:32 AM EDT Height - - Body Mass Index - - Plan of Treatment Health Maintenance Due Date Last Done Comments Colorectal Cancer Screening: Annual FOBT 1999 Colorectal Cancer Screening: Colonoscopy 1999 Colorectal Cancer Screening: Sigmoidoscopy 1999 Pneumococcal Vaccine: 65+ Ye ars (2 of 2 - PPSV23 or PCV20) 11/19/2017 09/24/2017 Diabetes: Ophthalmology Exam 03/26/2022 Diabetes: Pedal Pulse Checked 03/26/2022 Diabetes: Sensory Foot Exam 03/26/2022 Diabetes: Visual Foot Exam 03/26/2022 Diabetes: Hemoglobin A1C 10/12/2022 07/15/2022 Influenza Vaccine (#1) 2024 Hepatitis B Vaccine Aged Out No longe r eligible based on patient's age to complete this topic [place] [address] [place] [address] ([id number]) [facility] ([id number]) Care Teams Typesetting Machine Operator/Tender Relationship Specialty Start Date End Date Sindy Obrien MD [address] [place] [phone] PCP - General Internal Medicine 01/01/22
--- OUTSIDE RECORDS SUMMARY | 2024-07-19 11:15 | XMS_ITS | Encounter Summary ---
Author Organization [facility] Address [address] [facility] 7t [place] [address] Care Team Providers Care Tie Buyer Name Role Phone Sindy Obrien MD Primary Care Provide r Encounter Details Date Type Department Care Team (Late st Contact Info) Description 05/20/2022 Orders Only [facility] MEDICINE [address] [place] [phone] Bhakti Paredes DO [address] [place] [address] Hypertension, unspecified type (Primary Dx) Social History Tobacco Use Types Packs/Day Years Used Date Smoking Tobacco: Former Cigarettes Smokeless Tobacco: Never Sex and Gender Information Value Date Recorded Sex Assigned at Male 04/07/2022 10:32 AM EDT Legal Sex Male 10:32 AM EDT Gender Identity Male 04/07/2022 10:32 AM EDT Sexual Orientation Straight 04/07/2022 10 :32 AM EDT COVID-19 Exposure Response Date Recorded In the last 10 days, have sheeba u been in contact with someone who was confirmed or suspected to have Coronavirus/COVID-19? No / Unsure 05/19/2022 2:01 PM EST documented as of this encounter Plan of Treatment Upcoming Encounters Date Type Department Care Team (Late st Contact Info) Description 07/28/2024 9:00 AM EST Medication Management [facility] MEDICINE [address] [place] [phone] Edgard Dasilva, PharmD [address] [place] [address] 09/12/2024 1:00 PM EDT Clinical Support [facility] [address] [place] [address] 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 RN documented as of this encounter Procedures Procedure Name Priority Date/Time Associated Diagnosis Comments BASIC METABOLIC PANEL Routine 07/08/2022 2:26 PM EST Hypertension, unspecified type documented in this encounter Results * (ABNORMAL) Basic Metabolic Panel (07/08/2022 2:26 PM EST) Glucose 444(H) 65 - 139 mg/dL [facility] Comment: Verified by repeat analysis. ? Non-fasting reference interval Urea Nitrogen (BUN) 14 7 - 25 mg/dL [facility] Creatinine, Serum 1.23 0.70 - 1.28 mg/dL [facility] eGFR 62 > OR = 60 mL/min/1 .73m2 [facility] Comment: The eGFR is based on the CKD-EPI 2020 equation. To calculate the new eGFR from a previous Creatinine or Cystatin C result, go to https://www.kidney.org/professionals/ kdoqi/gfr%5Fcalculator BUN/Creatinine Ratio NOT APPLICABLE 6 - 22 (calc) [facility] Sodium 132(L) 135 - 146 mmol/L [facility] Potassium 4.3 3.5 - 5.3 mmol/L [facility] Chloride 96(L) 98 - 110 mmol/L [facility] Carbon Dioxide 29 20 - 32 mmol/L [facility] Calcium 9.3 8.6 - 10.3 mg/dL [facility] Blood Venous blood specimen / Unknown 07/08/2022 2:26 PM EST 07/08/2022 2:27 PM EST Narrative [facility] - 07/09/2022 12:11 PM EST FASTING:NO FASTING: NO Bhakti Paredes DO LAB BLOOD ORDERABLES Final R esult [facility] [address] [facility], [address] [place] [address] [facility] [address], ([address]) [place] [address] documented in this encounter Visit Diagnoses Diagnosis Hypertension, unspecified type- Primary documented in this encounter Care Teams Tie Buyer Relationship Specialty Start Date End Date Sindy Obrien MD [address] [place] [phone] PCP - General Family Medicine 03/28/19 documented as of this encounter
--- OUTSIDE RECORDS SUMMARY | 2024-07-19 11:15 | XMS_ITS | Encounter Summary ---
Author Organization [employer] Address [address] 7[address] [place] [address] Care Team Providers Care Directory Operator Name Role Phone Sindy Obrien MD Primary Care Provide r Encounter Details Date Type Department Care Team (Late st Contact Info) Description 06/25/2024 Orders Only GENERIC EXTERNAL DATA DEPARTMENT Provider, [...] 07/28/2024 9:00 AM EST Medication Management [address] [address] Edgard Dasilva, AtiyaD [address] [place] [address] 09/12/2024 1:00 PM EDT Clinical Support [address] [address] 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 RN documented as of this encounter Goals Goal Patient Goal Type Associated Problems Recent Progress Patient-Stated? Author Hemoglobin A1c < 8 Result Component 11.9( 1:19 PM EST) No Caroline Neri, AtiyaD documented as of this encounter Procedures Procedure Name Priority Date/Time Associated Diagnosis Comments FL GUIDANCE IN OR Routine 06/27/2024 3:5 0 PM EST SLIDE REVIEW Routine 06/25/2024 3:25 PM EST HIGH SENSITIVITY TROPONIN I Routine 06/25/2024 3:25 PM EST CBC WITH AUTO DIFFERENTIAL Routine 06/25/2024 3:25 PM EST MAGNESIUM Routine 06/25/2024 3:25 PM EST LIPASE Routine 06/25/2024 3:25 PM EST HEPATIC FUNCTION PANEL Routine 06/25/2024 3:25 PM EST BASIC METABOLIC PANEL Routine 06/25/2024 3:25 PM EST LACTIC ACID Routine 06/25/2024 3:24 PM EST documented in this encounter Results * FL Guidance in OR (06/27/2024 3:50 PM EST) Anatomical Region Laterality Modality X-Ray Angiograph y 06/27/2024 3:50 PM EST Narrative 06/28/2024 8:44 AM EST ? [facility] ?[address] ?[place] [address] ? Fluoroscopy Report ? Signed ? Patient: Junior Colon,Frantz ?MR#: [id number] ?? [id number] ? : 1950 ?Acct:[id number] ? Age/Sex: 74 / M ?ADM Date: 06/25/24 ? Loc: HO.S3 ?373-1 ? Attending Dr: Mimi Smith STRETCH BOX TENDER ? Ordering Physician: Amrik Garrett MD ?? Date of Service: 06/27/24 ?? Procedure(s): FL guidance in OR ?? Accession Number(s): [id number] ? cc: Sindy Obrien MD; Amrik Garrett MD ? EXAMINATION: ??FL GUIDANCE ONLY ? HISTORY: stone right ? COMPARISON: ?? Correlation is made with a CT of the abdomen and pelvis without ?? contrast 06/24/2024. ? TECHNIQUE: ?? Fluoroscopy time: 12.3 seconds. ?? Cumulative Dose: 4.45 mGy. ?? Images: 5. ? FINDINGS: ?? Images were obtained during placement of a right nephroureteral stent. ? FL/FL guidance in OR ?? IMPRESSION: ?? Fluoroscopy during procedure. Please see procedure report for ?? additional information. ? Electronically signed by: ??Dusty Henley MD ??06/28/2024 08:42 AM EST ?? RP ? Dictated By: ?Dusty Henley MD ? Signed By: ?<Electronically signed by Dusty Henley MD in OV> ?06/28/24 0842 ? DD/ 1550 ? TD/TT: 06/27/24 1610 ? [employer] Crew Member: ? Procedure Note Aminata More - 06/28/2024 [facility] [address] [place] [address] Fluoroscopy Report Signed Patient: Frantz FinkMR#: [id number] : 1950cct:[id number] Age/Sex: 74 / MADM Date: 06/25/24 Loc: HO.S3 373-[address]: Mimi Smith STRETCH BOX TENDER Ordering Physician: Amrik Garrett MD Date of Service: 06/27/24 Procedure(s): FL guidance in OR Accession Number(s): [id number] cc: Sindy Obrien MD; Amrik Garrett MD EXAMINATION: FL GUIDANCE ONLY HISTORY: stone right COMPARISON: Correlation is made with a CT of the abdomen and pelvis without contrast 06/24/2024. TECHNIQUE: Fluoroscopy time: 12.3 seconds. Cumulative Dose: 4.45 mGy. Images: 5. FINDINGS: Images were obtained during placement of a right nephroureteral stent. FL/FL guidance in OR IMPRESSION: Fluoroscopy during procedure. Please see procedure report for additional information. Electronically signed by: Dusty Henley MD 06/28/2024 08:42 AM EST Dictated By: Dusty Henley MD Signed By: <Electronically signed by Dusty Henley MD in OV> 06/28/24 0842 DD/ 1550 TD/TT: 06/27/24 1610 [employer] Crew Member: [facility] External Provider IMG IR PROCEDURES Edited Result - Final * Slide Review (06/25/2024 3:25 PM EST) Slide Review VERIFIED [facility] 06/25/2024 3:25 PM EST 06/25/2024 3:28 PM EST Generic External Data Provider LAB BLOOD ORDERAB LES Final Result [facility] [address] [place] [phone] * (ABNORMAL) CBC auto differential (06/25/2024 3:25 PM EST) White Blood Count 17.4(H) 4.8 - 10.8 X10*3/uL [facility] Red Blood Count 4.33(L) 4.60 - 5.80 X10*6/uL [facility] Hemoglobin 12.4(L) 14.0 - 18.0 g/dl [facility] Hematocrit 36.3(L) 42.0 - 52.0 % [facility] Mean Corpuscular Volume 83.8 80.0 - 98.0 fL [facility] Mean Corpuscular Hemoglobin 28.6 27.0 - 33.0 pg [facility] Mean Corpuscular HGB Conc 34.2 31.0 - 36.0 g/dl [facility] Red Cell Distribution Width 16.4(H) 11.0 - 16.0 % [facility] Platelet Count 332 160 - 400 X10*3/uL [facility] Mean Platelet Volume 9.6 9.4 - 12.4 fL [facility] Neutrophils Percent Auto 64.8 45 - 73 % [facility] Imm Gran Pct Auto 0.9(H) 0.0 - 0.4 % [facility] Lymphocytes Percent Auto 23.2 20 - 40 % [facility] Monocytes Percent Auto 10.4 2 - 11 % [facility] Eosinophils Percent Auto 0.5 0 - 4 % [facility] Basophils Percent Auto 0.2 0 - 2 % [facility] NRBC Pct Auto 0.0 0.0 - 0.2 /100WBC [facility] Neutrophils Absolute Auto 11.3(H) 2.0 - 8.3 x10*3/uL [facility] Imm Gran Abs Auto 0.16(H) 0.00 - 0.03 X10*3/uL [facility] Lymphocytes Absolute Auto 4.0 1.2 - 4.9 X10*3/uL [facility] Monocytes Absolute Auto 1.8(H) 0.1 - 1.2 X10*3/uL [facility] Eosinophils Absolute Auto 0.1 0.0 - 0.4 X10*3/uL [facility] Basophils Absolute Auto 0.0 0.0 - 0.2 X10*3/uL [facility] NRBC Abs Auto 0.000 0.0 - 0.012 X10*3/uL [facility] 06/25/2024 3:25 PM EST 06/25/2024 3:28 PM EST Generic External Data Provider LAB BLOOD ORDERAB LES Edited Result - Final Performing Organization Address [facility]/ZIP Co de Phone Number [facility] [address] [place] [phone] * Lipase (06/25/2024 3:25 PM EST) Pathologist [facility] Lipase 14 8 - 78 U/L [facility] 06/25/2024 3:25 PM EST 06/25/2024 3:28 PM EST us Generic External Data Provider LAB BLOOD ORDERAB LES Final Result Performing Organization Address [facility] de Phone Number [facility] [address] [place] [phone] * Magnesium (06/25/2024 3:25 PM EST) [facility] Magnesium 2.1 1.6 - 2.6 mg/dL [facility] 06/25/2024 3:25 PM EST 06/25/2024 3:28 PM EST Generic External Data Provider LAB BLOOD ORDERAB LES Final Result Performing Organization Address [facility] de Phone Number [facility] [address] [place] [phone] * (ABNORMAL) Basic Metabolic Panel (06/25/2024 3:25 PM EST) Pathologist [facility] Sodium 136 135 - 145 mmol/L [facility] Potassium 4.2 3.3 - 5.1 mmol/L [facility] Chloride 104 96 - 108 mmol/L [facility] Carbon Dioxide 22 22 - 29 mmol/L [facility] Anion Gap 14 12 - 20 [facility] Urea Nitrogen (BUN) 28(H) 9 - 16 mg/dL [facility] Creatinine, Serum 1.32 0.5 - 1.4 mg/dL [facility] Creatinine Clr Calc Pharmacy 44.1 [facility] Comment:eGFR (calculated fro m the MDRD study equation) and eCrCl(calculated from the Cockcroft-Gault equation) are based ondifferent parameters and may not yield comparable results.If eCrCl result is absurd, please check patient'sheight/weight. Estimated Glomerular Filt Rate 53 [facility] Comment:Chronic Kidney Disea se: Estimated GFR < 60 mL/min/1.63w2Xecqqi Kidney Disease: Estimated GFR < 15 mL/min/1.73m2 Glucose 268(H) 60 - 115 mg/dL [facility] Calcium 9.0 8.4 - 10.2 mg/dL [facility] 06/25/2024 3:25 PM EST 06/25/2024 3:28 PM EST us Generic External Data Provider LAB BLOOD ORDERAB LES Final Result [facility] [address] [place] [phone] * Hepatic Function Panel (06/25/2024 3:25 PM EST) Bilirubin, Total 0.3 0.0 - 1.0 mg/dL [facility] Bilirubin, Direct 0.1 0.0 - 0.5 mg/dL [facility] Aspartate Amino Transferase 21 5 - 37 U/L [facility] Alanine Aminotransferase 20 0 - 40 U/L [facility] Total Protein 7.3 6.5 - 8.0 g/dL [facility] Albumin Level 3.7 3.5 - 5.0 g/dL [facility] Alkaline Phosphatase 59 39 - 117 U/L [facility] 06/25/2024 3:25 PM EST 06/25/2024 3:28 PM EST Generic External Data Provider LAB BLOOD ORDERAB LES Final Result Performing Organization Address [facility] Co de Phone Number [facility] [address] [place] [phone] * High Sensitivity Troponin I (06/25/2024 3:25 PM EST) TROPONIN I HIGH SENSITIVITY 5.9 <3.5 - 35.0 ng/L [facility] Comment:The Mason high sens itivity Troponin-I results should beused in conjunction with other diagnostic information suchas ECG, clinical observations and information, and patientsymptoms to aid in the diagnosis of NM. 06/25/2024 3:25 PM EST 06/25/2024 3:28 PM EST Generic External Data Provider LAB BLOOD ORDERAB LES Final Result Performing Organization Address [facility] Co de Phone Number [facility] [address] [place] [phone] * Lactic Acid (06/25/2024 3:24 PM EST) Lactic Acid 1.3 0.5 - 2.0 mmol/L [facility] 06/25/2024 3:24 PM EST 06/25/2024 3:28 PM EST Generic External Data Provider LAB BLOOD ORDERAB LES Final Result Performing Organization Address [facility] Co de Phone Number [facility] [address] [place] [phone] documented in this encounter Visit Diagnoses Not on filedocumented in this encounter Additional Health Concerns Assessment Noted Time PHQ-9 Depression Total Score: 0 06/06/20 24 1:16 PM EST documented as of this encounter Care Teams Directory Operator Relationship Specialty Start Date End Date Sindy Obrien MD [address] [place] [address] PCP - General Family Medicine 03/28/19 documented as of this encounter
--- OUTSIDE RECORDS SUMMARY | 2024-07-19 11:15 | XMS_ITS | Encounter Summary ---
Author Organization [employer] Address [address] [facility] [address] [place] [address] Care Team Providers Care Customs And Border Protection Officer Name Role Phone Sindy Obrien MD Primary Care Provide r Encounter Details Date Type Department Care Team (Latest Contact Info) Description 06/24/2024 Travel Social History Tobacco Use Types Packs/Day [...] Description 07/28/2024 9:00 AM EST Medication Management [address] [address] Edgard Dasilva, PharmD [address] [place] [phone] 09/12/2024 1:00 PM EDT Clinical Support [address] [address] 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, MANSI documented as of this [...] documented as of this encounter Care Teams Customs And Border Protection Officer Relationship Specialty Start Date End Date Sindy Obrien MD [address] [place] [phone] PCP - General Family Medicine 03/28/19 documented as of this encounter
--- OUTSIDE RECORDS SUMMARY | 2024-07-19 11:16 | XMS_ITS | Clinical Summary ---
Author Organization [employer] Address [address] [place] [address] Care Team Providers Care Data Specialist Name Role Phone Sindy Obrien MD Primary Care Provide r Allergies No known active allergies Medications ferrous sulfate 325 (65 Fe) MG tablet Take by mouth every 12 (twelve) hours. Active pantoprazole (ProtoNix) 40 MG EC tablet Take 1 tablet by mouth 2 times daily. 020 Active Alcohol Swabs 70 % pads Use to test blood sugar three times daily Active TRUEplus Lancets 33G misc TEST BLOOD SUGAR THREE TIMES DAILY 100 each 023 Active FREESTYLE LITE test strip TEST BLOOD SUGAR THREE TIMES DAILY 100 strip 023 Active dulaglutide (Trulicity) 4.5 MG/0.5ML solution pen-injectorInd ications:Type 2 diabetes mellitus with hyperglycemia, with long-term current use of insulin ([facility]) Inject 4.5 mg under the skin 1 (one) time per week. 4 each 023 Active Continuous Blood Gluc Account Resolution Specialist (FreeStyle Antione 2 [place]) deviceIndicatio ns:Type 2 diabetes mellitus with hyperglycemia, with long-term current use of insulin ([facility]) Scan sensor every 8 hours 1 each 024 Active glucose blood (FreeStyle Precision Irwin Test) test stripIndication s:Type 2 diabetes mellitus with hyperglycemia, with long-term current use of insulin ([facility]) Use to test blood sugar 3 times daily 100 each 12 024 2024 Active glipiZIDE XL (Glucotrol XL) 10 MG 24 hr tabletIndicatio ns:Type 2 diabetes mellitus with hyperglycemia, with long-term current use of insulin ([facility]) TAKE 1 TABLET BY MOUTH TWICE DAILY IN THE MORNING AND IN THE EVENING 60 tablet 11 Active Acetaminophen Extra Strength 500 MG tabletIndicatio ns:Chronic right shoulder pain TAKE 1 TABLET BY MOUTH EVERY 6 HOURS NEEDED MILD PAIN 30 tablet Active methocarbamol (Robaxin) 500 MG tabletIndicatio ns:Chronic right shoulder pain TAKE 1 TABLET BY MOUTH EVERY DAY NEEDED FOR MUSCLE SPASMS 30 tablet Active insulin pen needle (BD Pen Needle Candie U/F) 32G x 4 mm miscIndications :Type 2 diabetes mellitus with hyperglycemia, without long-term current use of insulin ([facility]) USE DIRECTED ONCE DAILY 100 each 12 Active atorvastatin (Lipitor) 20 MG tablet Take 1 tablet (20 mg) by mouth in the morning. 90 tablet 1 Active Continuous Glucose Sensor (FreeStyle Antione 2 Sensor) miscIndications :Type 2 diabetes mellitus with hyperglycemia, with long-term current use of insulin ([facility]) USE TO TEST BLOOD SUGAR. CHANGE EVERY 14 DAYS 2 each 2 Active mirtazapine (Remeron) 15 MG tabletIndicatio ns:Depressive disorder TAKE 1 TABLET BY MOUTH AT BEDTIME 90 tablet 1 Active naloxone (Narcan) 4 mg/0.1 mL nasal sprayIndication s:Chronic right shoulder pain Administer 1 spray (4 mg) into affected nostril(s) if needed for opioid reversal. May repeat every 2-3 minutes if needed, alternating nostrils, until medical assistance becomes available. 2 each 3 024 2024 Active amLODIPine (Norvasc) 10 MG tablet Take 1 tablet (10 mg) by mouth in the morning. 90 tablet 1 Active cyanocobalamin (Vitamin B-12) 1000 MCG tabletIndicatio ns:Routine health maintenance Take 1 tablet (1,000 mcg) by mouth in the morning. 90 tablet 1 024 Active hydroCHLOROthia zide (HYDRODiuril) 25 MG tabletIndicatio ns:HTN (hypertension), benign TAKE 1 TABLET BY MOUTH EVERY MORNING 90 tablet Active carvedilol (Coreg) 12.5 MG tabletIndicatio ns:HTN (hypertension), benign TAKE 1 TABLET BY MOUTH TWICE DAILY IN THE MORNING AND IN THE EVENING WITH FOOD 60 tablet 3 024 Active dapagliflozin (Farxiga) 10 MGIndications:T ype 2 diabetes mellitus with hyperglycemia, with long-term current use of insulin ([facility]) Take 1 tablet (10 mg) by mouth Once per day. 30 tablet 11 024 2024 Active insulin glargine (Lantus SoloStar) 100 UNIT/ML penIndications: Type 2 diabetes mellitus with hyperglycemia, with long-term current use of insulin ([facility]) INJECT 40 UNITS SUBCUTANEOUSLY EVERY MORNING AND INJECT 30 UNITS SUBCUTANEOUSLY EVERY EVENING 15 mL 3 Active Continuous Glucose Account Resolution Specialist (FreeStyle Antione 2 [place]) deviceIndicatio ns:Type 2 diabetes mellitus with hyperglycemia, with long-term current use of insulin ([facility]) Scan sensor every 8 hours 1 each Active Continuous Glucose Sensor (FreeStyle Antione 2 Sensor) miscIndications :Type 2 diabetes mellitus with hyperglycemia, with long-term current use of insulin ([facility]) Apply 1 sensor every 14 days 2 each 1 Active glucose blood (FreeStyle Precision [place] Test) test stripIndication s:Type 2 diabetes mellitus with hyperglycemia, with long-term current use of insulin ([facility]) Use to test blood sugar 3 times daily 100 each 1 024 2024 Active olmesartan (BENIcar) 5 MG tabletIndicatio ns:Primary hypertension TAKE 1 TABLET BY MOUTH EVERY MORNING 90 tablet 025 Active oxyCODONE (Roxicodone) 5 MG immediate release tabletIndicatio ns:Chronic right shoulder pain Take 1 tablet (5 mg) by mouth every 8 (eight) hours if needed for severe pain for up to 28 days. Do not start before July 15, 2024. 84 tablet 025 2024 Active olmesartan (BENIcar) 5 MG tabletIndicatio ns:Primary hypertension TAKE 1 TABLET BY MOUTH EVERY MORNING 90 tablet 024 2024 Discontinued(R eorder (will not trigger notification to Pharmacy)) meclizine (Antivert) 25 MG tabletIndicatio ns:Vestibular disorder, unspecified laterality Take 1 tablet (25 mg) by mouth if needed in the morning, at noon, and at bedtime for dizziness for up to 20 days. 30 tablet 1 024 2024 oxyCODONE (Roxicodone) 5 MG immediate release tabletIndicatio ns:Chronic right shoulder pain TAKE 1 TABLET BY MOUTH EVERY 8 HOURS NEEDED FOR SEVERE PAIN FOR UP TO 28 DAYS 84 tablet 025 2024 Discontinued(R eorder (will not trigger notification to Pharmacy)) Active Problems Problem Noted Date Diagnosed Date Vestibular disorder, unspecified laterality 05/10 Assessment & Plan (06/06/2024 1:44 PM EST): Change position slowly Maintain hydration For now meclizine PRN PT referral ENT referral Preop examination 11/13/2023 Assessment & Plan (11/13/2023 4:34 PM EDT): RCRI score is 1 which is 6% Surgery should proceed as schedule NPO after midnight the day of the procedure I advise to take half of the lantus dose at bed time (instead of 30U do15U) Take blood pressure medication with small sip of water the day of the surgery Chronic right shoulder pain 05/21/2023 Assessment & Plan (08/10/2023 4:57 PM EST): I will start him on oxycodone 5mg Q 8hrs TECHNICAL SERVICE SPECIALIST will be initiated Plan is that after surgery I will taper down this medication to discontinue Intertrigo 11/13/2022 Assessment & Plan (11/13/2022 1:22 PM EDT): Pt w extensive intertrigo in bl inguinal area with no current Signs of bacterial infection Likely in setting of uncontrolled DM2 -advised pt to resume DM2 meds -will start x rash clotrimazole/topicl steroid BID x 28 days + fluconazole x1 dose and px nystatin pwd BID -pt will f w PCP here in 2 weeks -pt will f rash w CPP then -alarm signs and symptoms explained to pt in case needs to return to [facility] Type 2 diabetes mellitus wit h hyperglycemia, with long-term current use of insulin 10/23/2022 Assessment & Plan (06/06/2024 1:43 PM EST): Diabetes is: not controlled - Lab Results Component Value Date HGBA1C 11.9 (A) 06/06/2024 HGBA1C 9.2 (A) 11/11/2023 HGBA1C 11.2 (A) 08/10/2023 - Lab Results Component Value Date MICROALBUR 54.4 07/27/2020 CREATININE 1.21 05/19/2024 -Changes: I went up on his lantus to 40 U AM c/w 30U PM c/w rest of meds, CDTM referral I prescribed for him CGM - Diabetic eye exam:up to date - Diabetic foot exam:pending - Continue lifestyle modifications - Follow up: 3 months Assessment & Plan (11/11/2023 2:32 PM EDT): Diabetes is: not controlled but improved - Lab Results Component Value Date HGBA1C 9.2 (A) 11/11/2023 HGBA1C 11.2 (A) 08/10/2023 HGBA1C 11.0 (A) 05/21/2023 - Lab Results Component Value Date MICROALBUR 54.4 07/27/2020 CREATININE 1.23 01/23/2023 -Changes: none, continue to follow with CDTM - Diabetic eye exam:up to date - Diabetic foot exam:pending - Continue lifestyle modifications - Continue current medications - Follow up: 3 months Assessment & Plan (09/02/2023 11:29 AM EDT): Diabetes is: not controlled - Lab Results Component Value Date HGBA1C 11.2 (A) 08/10/2023 HGBA1C 11.0 (A) 05/21/2023 HGBA1C 10.4 (A) 01/19/2023 - Lab Results Component Value Date MICROALBUR 54.4 07/27/2020 CREATININE 1.23 01/23/2023 -Changes: I put him on lantus 30 U PM and 35U AM I also increased his glipizide to 10mg BID I will find out what happen with PA for CGM, I do feel patient will benefit form this - Diabetic eye exam:up to date - Diabetic foot exam:pendingg - Continue lifestyle modifications -Do not mis endocrinology appointment - Follow up: 3 months Assessment & Plan (08/10/2023 4:58 PM EST): Diabetes is: not controlled - Lab Results Component Value Date HGBA1C 11.2 (A) 08/10/2023 HGBA1C 11.0 (A) 05/21/2023 HGBA1C 10.4 (A) 01/19/2023 - Lab Results Component Value Date MICROALBUR 54.4 07/27/2020 CREATININE 1.23 01/23/2023 -Changes: I will increase farxiga to 10mg I advise to bring his boxes to make sure he has all his meds in, I prescribe continous glucose monitor and refer him to endocrinology - Diabetic eye exam:up to date - Diabetic foot exam:up to date - Continue lifestyle modifications - Follow up: 3 months Assessment & Plan (05/21/2023 1:56 PM EST): - Lab Results Component Value Date HGBA1C 11.0 (A) 05/21/2023 HGBA1C 10.4 (A) 01/19/2023 HGBA1C 9.2 (A) 11/28/2022 - Lab Results Component Value Date MICROALBUR 54.4 07/27/2020 CREATININE 1.23 01/23/2023 - Diabetic eye exam:referrral done - Continue lifestyle modifications - increase lantus to 30U, add farxiga 5mg c/w rest of medications Assessment & Plan (01/19/2023 1:12 PM EDT): - Lab Results Component Value Date HGBA1C 10.4 (A) 01/19/2023 HGBA1C 9.2 (A) 11/28/2022 HGBA1C 11.4 (A) 09/17/2022 - Lab Results Component Value Date MICROALBUR 54.4 07/27/2020 CREATININE 1.43 (H) 12/31/2022 - Continue lifestyle modifications -c/w Lantus 26U at bed time, I increase his trulicty to 4.5mg weekly, I discontinue glimepiride and switch it to glipizide c/w 5mg AM and 10mg PM, I discontinue metfromin Assessment & Plan (11/28/2022 12:19 PM EDT): Improved - Lab Results Component Value Date HGBA1C 9.2 (A) 11/28/2022 HGBA1C 11.4 (A) 09/17/2022 HGBA1C 11.9 (A) 07/15/2022 - Lab Results Component Value Date MICROALBUR 54.4 07/27/2020 CREATININE 1.41 (H) 08/20/2022 - Diabetic eye exam: waiting for his appointment - Diabetic foot exam: up to date - Continue lifestyle modifications I Increase his lantis to 22U and switch it to AM schedule c/w rest of medications Assessment & Plan (10/23/2022 4:09 PM EDT): - Lab Results Component Value Date HGBA1C 11.4 (A) 09/17/2022 HGBA1C 11.9 (A) 07/15/2022 HGBA1C 8.6 (A) 10/15/2021 - Lab Results Component Value Date MICROALBUR 54.4 07/27/2020 CREATININE 1.41 (H) 08/20/2022 - Diabetic eye exam: pending - Diabetic foot exam: pending - Continue lifestyle modifications -I changed his lantus to 20U at bed time, I increase his trulicity to 3mg weekly, c/w metformin 500mg BID Low back pain radiating to lower extremity 09/17 Assessment & Plan (01/19/2023 1:09 PM EDT): Apply heat on affected area Assessment & Plan (09/17/2022 4:56 PM EDT): He requested refills of tylenol and Robaxin. I reduced the dose of the tylenol and explained that taking large doses for long periods of time was bad for his liver. He understood. I told him I was only giving 10 more days of Robaxin so to take it sparingly. He stated that he understood and that he doesn't take it every day. Acute renal failure syndrome 05/14/2022 Carcinoma of stomach 05/14/2022 Overview (06/12/2022): Patient seen by [facility] on 05/29/22: 10/2021 EGD showed normal appearing gary en Y anastomosis at 50 cms - biopsies obtained from the anastomosis were negative for malignancy and H pylori. Pt was advised to increase pantoprazole to 40 mg twice daily. Pt was advised to schedule an EGD (FU of Gastric cancer) and a same day colonoscopy (FU of colon polyps). Follow-up in 6 months Assessment & Plan (10/23/2022 4:11 PM EDT): Patient has surveillance EGD tomorrow 10/24/22 it was advise not to miss his appointment Depressive disorder 05/14/2022 Epigastric pain 05/14/2022 Iron deficiency anemia due to chronic blood loss 05/14/2022 Malignant tumor of stomach 05/14/2022 Rash 05/14/2022 HTN (hypertension), benign 05/12/2022 Overview (05/12/2022): avoid salt. continue amlodopine 10 mg qd. D/c Coreg 6.25 mg bid. Prescribed Coreg 12.5 mg bid. I spoke with [facility], and pt. will bring [facility] in for Assessment & Plan (09/02/2023 11:27 AM EDT): - Aerobic exercise to reduce BP. Initial goal of 30 min walk 3-5x/week. Increase as tolerated. - low-sodium diet (goal: <2g/day) and heart healthy diet such as DASH to reduce BP and prevent ASCVD. - Home BP monitoring 1-2 x day with goal of <140/90. - Seek immediate medical attention for chest pain, palpitations, SOB, syncope, or sudden changes in mental status. - Do not change or discontinue current prescriptions without first consulting health care provider Assessment & Plan (01/19/2023 1:09 PM EDT): - Aerobic exercise to reduce BP. Initial goal of 30 min walk 3-5x/week. Increase as tolerated. - low-sodium diet (goal: <2g/day) and heart healthy diet such as DASH to reduce BP and prevent ASCVD. - Home BP monitoring 1-2 x day with goal of <140/90. - Seek immediate medical attention for chest pain, palpitations, SOB, syncope, or sudden changes in mental status. - Do not change or discontinue current prescriptions without first consulting health care provider Assessment & Plan (11/13/2022 1:20 PM EDT): Elevated BP today -but states not taking his BP meds x last week --reports run off of all his meds--I called today pharmacy here and was told he has [employer] and has been ready to rock picker x last week ---advised pt to get all meds today and resume taking all meds prescribed -pt has upcoming visit w PCP on 11/28/2022 to f BP and rest of chronic conditions Assessment & Plan (08/06/2022 3:12 PM EST): Prescribed olmesartan (Benicar) 5 MG tablet Patient to monitor his BP and return in two weeks. Assessment & Plan (05/12/2022 1:02 PM EST): avoid salt. continue amlodopine 10 mg qd. D/c Coreg 6.25 mg bid. Prescribed Coreg 12.5 mg bid. I spoke with [facility], and pt. will bring [facility] in for change. Continue to keep daily BP and pulse log. RN BP and pulse visit scheduled. 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 Initial goal of 30 min walk 3-5x/week. Increase as tolerated. - low-sodium diet (goal: <2g/day) and heart healthy diet such as DASH to reduce BP and prevent ASCVD. - Home BP monitoring 1-2 x day with goal of <140/90. - Seek immediate medical attention for chest pain, palpitations, SOB, syncope, or sudden changes in mental status. - Do not change or discontinue current prescriptions without first consulting health care provider Assessment & Plan (08/10/2023 4:56 PM EST): - Aerobic exercise to reduce BP. Initial goal of 30 min walk 3-5x/week. Increase as tolerated. - low-sodium diet (goal: <2g/day) and heart healthy diet such as DASH to reduce BP and prevent ASCVD. - Home BP monitoring 1-2 x day with goal of <140/90. - Seek immediate medical attention for chest pain, palpitations, SOB, syncope, or sudden changes in mental status. - Do not change or discontinue current prescriptions without first consulting health care provider Assessment & Plan (11/28/2022 12:18 PM EDT): - Aerobic exercise to reduce BP. Initial goal of 30 min walk 3-5x/week. Increase as tolerated. - low-sodium diet (goal: <2g/day) and heart healthy diet such as DASH to reduce BP and prevent ASCVD. - Home BP monitoring 1-2 x day with goal of <140/90. - Seek immediate medical attention for chest pain, palpitations, SOB, syncope, or sudden changes in mental status. - Do not change or discontinue current prescriptions without first consulting health care provider Assessment & Plan (10/23/2022 4:07 PM EDT): - Aerobic exercise to reduce BP. Initial goal of 30 min walk 3-5x/week. Increase as tolerated. - low-sodium diet (goal: <2g/day) and heart healthy diet such as DASH to reduce BP and prevent ASCVD. - Home BP monitoring 1-2 x day with goal of <140/90. - Seek immediate medical attention for chest pain, palpitations, SOB, syncope, or sudden changes in mental status. - Do not change or discontinue current prescriptions without first consulting health care provider Assessment & Plan (09/17/2022 4:53 PM EDT): Patient BP is well managed at the moment. He is to continue monitoring and bring his log to his next appointment for DM2 in one month. Assessment & Plan (08/20/2022 12:29 PM EDT): BP currently managed. Patient is to continue monitoring BP at home. Patient has DM2 follow up in 1 month will check again then. Ordered BMP to check kidneys due to ARB use. 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 His diabetes is improving slowly. I increased his Trulicity to 1.5 mg weekly. Counseled weight loss, dietary changes including watching carbs, exercise 30 min/ day, most days. ED precautions discussed F/up 1 month for DM2 with PCP Assessment & Plan (08/20/2022 12:32 PM EDT): DM2 still not managed. Patient to continue monitoring BS at home and to follow up in 1 month. Ordered trulicity Patient states he hasn't had a diabetic eye exam in a long time. Assessment & Plan (08/06/2022 3:13 PM EST): Lantus increased to 15 units daily Prescribed metformin 500 mg BID. Kidney function wnl Encounters Date Type Department Care Team Description 07/12/2024 1:00 PM EST Clinical Support [facility] [address] [place] [address] 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, metal drawer right shoulder pain (Primary Dx) 07/12/2024 Refill [facility] [address] [place] [address] Camilla, Leah, metal drawer right shoulder pain 07/12/2024 Travel 07/12/2024 Telephone [facility] [address] [place] [phone] 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 RN Recommend TECHNICAL SERVICE SPECIALIST Tier 2 06/25/2024 Orders Only GENERIC EXTERNAL DATA DEPARTMENT Provider, Generic External Data 06/24/2024 9:00 AM EST Office Visit [facility] [address] [place] [phone] Gregor Sarmiento MD RLQ abdominal pain (Primary Dx) 06/24/2024 Orders Only GENERIC EXTERNAL DATA DEPARTMENT Provider, Generic External Data 06/24/2024 Travel 06/20/2024 Refill [facility] [address] [place] [phone] Sindy Obrien MD Primary hypertension 06/14/2024 Telephone [facility] [address] [place] [phone] Sindy Obrien MD refill 06/13/2024 Refill [facility] [address] [place] [address] Sindy Obrien MD Chronic right shoulder pain 06/10/2024 Orders Only GENERIC EXTERNAL DATA DEPARTMENT Provider, Generic External Data 06/06/2024 1:45 PM EST Office Visit [facility] [address] [place] [phone] Sindy Obrien MD Vestibular disorder, unspecified laterality (Primary Dx); Type 2 diabetes mellitus with hyperglycemia, with long-term current use of insulin ([facility]) 06/06/2024 Telephone [facility] [address] [place] [phone] Sindy Obrien MD 06/06/2024 Telephone [facility] [address] [place] [address] [phone] Sindy Obrien MD 06/06/2024 Travel 06/03/2024 Telephone [facility] [address] [place] [phone] Dylon Sam MA Chart Prep 05/31/[address] [phone] Sindy Obrien MD a1c 05/26/2024 Refill [facility] [address] [place] [address] Sindy Obrien MD Type 2 diabetes mellitus with hyperglycemia, with long-term current use of insulin ([facility]) 05/23/2024 Refill [facility] [address] [place] [address] Sindy Obrien MD HTN (hypertension), benign 05/20/2024 Refill [facility] [address] [place] [address] Sindy Obrien MD HTN (hypertension), benign; Type 2 diabetes mellitus with hyperglycemia, with long-term current use of insulin ([facility]) 05/19/2024 Orders Only GENERIC EXTERNAL DATA DEPARTMENT Provider, Generic External Data 05/18/2024 Refill [facility] [address] [place] [address] Sindy Obrien MD Chronic right shoulder pain (Primary Dx) 05/09/2024 1:00 PM EST Clinical Support [facility] [address] [place] [phone] 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 RN Chronic right shoulder pain (Primary Dx) 05/09/2024 Telephone [facility] [address] [place] [phone] 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 RN Abnormal UTOX, forgot Oxycodone 05/09/2024 Travel 05/04/2024 Refill [facility] [address] [place] [address] Sindy Obrien MD Type 2 diabetes mellitus with hyperglycemia, with long-term current use of insulin ([facility]) from Last 3 Months Immunizations Name Administration Dates Next Due Moderna Covid-19 Vaccine 12+ 05/28/2021,10/26/19 21,09/27/2020 Pneumococcal Conjugate PCV 13 09/24/2017 Tdap 09/24/2017 Social History Tobacco Use Types Packs/Day Years Used Date Smoking Tobacco: Former Cigarettes Passive Smoke Exposure: Past Smokeless Tobacco: Never Tobacco Cessation:Counseling Given: Not Answered Alcohol Use Standard Drinks/Week Comments Never 0 [...] Orientation Straight 04/07/2022 10 :32 AM EDT Last Filed Vital Signs Vital Sign Reading Time Taken Comments Blood Pressure 142/77 06/24/2024 9:00 AM EST Pulse 80 06/24/2024 9:00 AM EST Temperature 36.7 ??C (98.1 ??F) 06/24/2024 9:00 AM ES T Respiratory Rate 16 06/24/2024 9:00 AM EST Oxygen Saturation 97% 06/24/2024 9:00 AM EST Inhaled Oxygen Concentration - - Weight 78.5 kg (173 lb) 06/24/2024 9:00 AM EST Height 160 cm (5' 3 ) 06/06/2024 1:16 PM EST Body Mass Index 30.65 06/06/2024 1:16 PM EST Plan of Treatment Upcoming Encounters Date Type Department Care Team (Late st Contact Info) Description 07/28/2024 9:00 AM EST Medication Management [address] [phone] Edgard Dasilva, PharmD [address] [place] [address] 09/12/2024 1:00 PM EDT Clinical Support [facility] [address] [place] [phone] 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, RN Health Maintenance Due Date Last Done Comments CT Colonography 1950 FIT DNA/Cologuard 1950 FIT 1950 Sigmoidoscopy 1950 Diabetes: Foot Exam 1960 Zoster Vaccines (1 of 2) 2000 RSV Patients and Patients Aged 60 years or older (1 - Risk 60-74 years 1-dose series) 2010 Pneumococcal Vaccine: 50+ Years (2 of 2 - PPSV23) 11/19/2017 09/24/2017 FOBT 06/28/2020 06/28/2019 Lipid Panel 12/30/2022 12/30/2021, 06/05/2020 COVID-19 Vaccine ( season) 2024 05/28/2021, 10/25/2020, 09/27/2020 Influenza Vaccine (#1) 2024 Diabetes: Hemoglobin A1C 09/04/2024 024, 11/11/2023, 08/10/2023, Additional history exists SDOH Screening 11/12/2024 11/13/2023 Alcohol/Substance Use Screening 06/06/2025 06/06/2024 Depression Screening 06/06/2025 06/06/2024, 06/06/20 24 Tobacco Screening 06/06/2025 06/06/2024 Eye Exam 08/17/2025 08/18/2023, 08/06, 08/18/2023, Additional history exists Colonoscopy 01/23/2026 01/23/2023, 05/15/2016 Colorectal Cancer Screening 01/23/2026 DTaP/Tdap/Td Vaccines (2 - Td or Tdap) 09/25/2027 09/24/2017 Hepatitis C Screening Completed 06/10/2024 HIB Vaccines Aged Out No longer eligi ble based on patient's age to complete this topic HPV Vaccines Aged Out No longer eligi ble based on patient's age to complete this topic Hepatitis A Vaccines Aged Out No long er eligible based on patient's age to complete this topic Hepatitis B Vaccines Aged Out No long er eligible based on patient's age to complete this topic IPV Vaccines Aged Out No longer eligi ble based on patient's age to complete this topic Meningococcal Vaccine Aged Out No yvon gabino eligible based on patient's age to complete this topic RSV under 20 months Aged Out No longe r eligible based on patient's age to complete this topic Rotavirus Vaccines Aged Out No longer eligible based on patient's age to complete this topic Goals Goal Patient Goal Type Associated Problems Recent Progress Patient-Stated? Author Hemoglobin A1c < 8 Result Component 11.9( 1:19 PM EST) No Caroline Neri PharmD Procedures Procedure Name Priority Date/Time Associated Diagnosis Comments POCT VELASQUEZ-14 URINE DRUG SCREEN Routine 07/12/2024 1:05 PM EST Chronic right shoulder pain FL GUIDANCE IN OR Routine 06/27/2024 3:5 0 PM EST SLIDE REVIEW Routine 06/25/2024 3:25 PM EST CBC WITH AUTO DIFFERENTIAL Routine 06/25/2024 3:25 PM EST LIPASE Routine 06/25/2024 3:25 PM EST MAGNESIUM Routine 06/25/2024 3:25 PM EST BASIC METABOLIC PANEL Routine 06/25/2024 3:25 PM EST HEPATIC FUNCTION PANEL Routine 3:25 PM EST HIGH SENSITIVITY TROPONIN I Routine 06/25/2024 3:25 PM EST LACTIC ACID Routine 06/25/2024 3:24 PM EST URINALYSIS, COMPLETE, WITH REFLEX TO CULTURE Routine 06/24/2024 3:39 PM EST CULTURE, URINE, ROUTINE Routine 06/24/2024 3:39 PM EST LACTIC ACID Routine 06/24/2024 3:24 PM EST BLOOD CULTURE (FIRST) Routine 06/24/2024 3:24 PM EST BLOOD CULTURE (SECOND) Routine 3:[address] ABDOMEN PELVIS WO CONTRAST Routine 06/24/2024 1:21 PM EST LIPASE Routine 06/24/2024 10:08 AM EST HEPATIC FUNCTION PANEL Routine 10:08 AM EST COMPREHENSIVE METABOLIC PANEL Routine 06/24/2024 10:08 AM EST CBC WITH AUTO DIFFERENTIAL Routine 06/24/2024 10:08 AM EST CREATININE, SERUM Routine 06/10/2024 11: 29 AM EST UREA NITROGEN (BUN) Routine 06/10/2024 1 1:29 AM EST ELECTROLYTE PANEL Routine 06/10/2024 11: 29 AM EST HEPATITIS PANEL, GENERAL Routine 06/10/2024 11:29 AM EST Vestibular disorder, unspecified laterality FERRITIN Routine 06/10/2024 11:29 AM EST Vestibular disorder, unspecified laterality IRON AND TOTAL IRON BINDING CAPACITY Routine 06/10/2024 11:29 AM EST Vestibular disorder, unspecified laterality CBC WITH AUTO DIFFERENTIAL Routine 06/10/2024 11:29 AM EST Vestibular disorder, unspecified laterality VITAMIN B12/FOLATE, SERUM PANEL Routine 06/10/2024 11:29 AM EST Vestibular disorder, unspecified laterality RPR (MONITOR) W/REFL TITER Routine 06/10/2024 11:29 AM EST Vestibular disorder, unspecified laterality TSH W/REFLEX TO FT4 Routine 06/10/2024 1 1:29 AM EST Vestibular disorder, unspecified laterality POCT GLYCATED HEMOGLOBIN, TOTAL Routine 06/06/2024 1:19 PM EST Type 2 diabetes mellitus with hyperglycemia, with long-term current use of insulin ([facility]) POCT GLUCOSE Routine 06/06/2024 1:19 PM EST Type 2 diabetes mellitus with hyperglycemia, with long-term current use of insulin ([facility]) CREATININE, SERUM Routine 05/19/2024 8:4 8 AM EST UREA NITROGEN (BUN) Routine 05/19/2024 8 :48 AM EST ELECTROLYTE PANEL Routine 05/19/2024 8:4 8 AM EST POCT VELASQUEZ-14 URINE DRUG SCREEN Routine 05/09/2024 1:15 PM EST Chronic right shoulder pain METHADONE SCREEN, URINE Routine 05/09/2024 1:00 PM EST Chronic right shoulder pain HM COLONOSCOPY Routine 01/23/2023 LIPID PANEL, STANDARD Routine 12/30/2021 9:07 AM EDT ZZZ HISTORICAL OCCULT BLOOD STOOL X3 Routine 06/28/2019 12:00 AM EST from Last 3 Months or Most Recently Relevant to Health Maintenance Results * POCT VELASQUEZ-14 Urine Drug Screen (07/12/2024 1:05 PM EST) Only the most recent of2 resultswithin the time period is included. Oxycodone Screen, Urine Positive Urine Urine specimen obtained by clean catch procedure / Unknown 07/12/2024 1:05 PM EST Leah Woods RN - 07/12/2024 1:05 PM EST UTOX cup Lot#[id number] Exp. 03/02/26 Internal Pass Control us Sindy Carlson MD POINT OF CARE TEST EN TER/EDIT ORDERABLES Final Result * FL Guidance in OR (06/27/2024 3:50 PM EST) Anatomical Region Laterality Modality X-Ray Angiograph y 06/27/2024 3:50 PM EST Narrative 06/28/2024 8:44 AM EST ? [facility] ?[address] ?[place] [address] ? Fluoroscopy Report ? Signed ? Patient: Junior Colon,Frantz ?MR#: [id number] ?? [id number] ? : 1950 ?Acct:[id number] ? Age/Sex: 74 / M ?ADM Date: 06/25/24 ? Loc: HO.S3 ?373-1 ? Attending Dr: Mimi Smith STOCK FITTER ? Ordering Physician: Amrik Garrett MD ?? Date of Service: 06/27/24 ?? Procedure(s): FL guidance in OR ?? Accession Number(s): [id number] ? cc: Sindy Obrien MD; Amrik Garrett [...] DD/ 1550 ? TD/TT: 06/27/24 1610 ? Economics Teacher: ? Procedure Note Donotmikeyter, Image - 06/28/[address] [address] Fluoroscopy Report Signed Patient: Frantz FinkMR#: [id number] : 1950cct:[id number] Age/Sex: 74 / MADM Date: 06/25/24 Loc: HO.S3 373-[address]: Mimi Smith NP Ordering Physician: Amrik Garrett MD Date of Service: 06/27/24 Procedure(s): FL guidance in OR Accession Number(s): [id number] cc: Sindy Obrien MD; Amrik Garrett MD [...] 06/28/24 0842 DD/ 1550 TD/TT: 06/27/24 1610 Economics Teacher: [facility] External Provider IMG IR PROCEDURES Edited Result - Final * Slide Review (06/25/2024 3:25 PM EST) Slide Review VERIFIED [facility] 06/25/2024 3:25 PM EST 06/25/2024 3:28 PM EST Generic External Data Provider LAB BLOOD ORDERAB LES Final Result Performing Organization Address [facility] de Phone Number [facility] [address] [place] [phone] * High Sensitivity Troponin I (06/25/2024 3:25 PM EST) [facility] TROPONIN I HIGH SENSITIVITY 5.9 <3.5 - 35.0 ng/L [facility] Comment:The [facility] high sens itivity Troponin-I results should beused in conjunction with other diagnostic information suchas ECG, clinical observations and information, and patientsymptoms to aid in the diagnosis of DC. 06/25/2024 3:25 PM EST 06/25/2024 3:28 PM EST Generic External Data Provider LAB BLOOD ORDERAB LES Final Result Performing Organization Address [facility] de Phone Number [facility] [address] [place] [phone] * (ABNORMAL) CBC auto differential (06/25/2024 3:25 PM EST) Only the most recent of3 resultswithin the time period is included. Pathologist [facility] White Blood Count 17.4(H) 4.8 - 10.8 X10*3/uL [facility] Red Blood Count 4.33(L) 4.60 - 5.80 X10*6/uL [facility] Hemoglobin 12.4(L) 14.0 - 18.0 g/dl [facility] Hematocrit 36.3(L) 42.0 - 52.0 % [facility] Mean Corpuscular Volume 83.8 80.0 - 98.0 fL [facility] Mean Corpuscular Hemoglobin 28.6 27.0 - 33.0 pg [facility] Mean Corpuscular HGB Conc 34.2 31.0 - 36.0 g/dl [facility] Red Cell Distribution Width 16.4(H) 11.0 - 16.0 % [facility] Platelet Count 332 160 - 400 X10*3/uL [facility] Mean Platelet Volume 9.6 9.4 - 12.4 fL [facility] Neutrophils Percent Auto 64.8 45 - 73 % [facility] Imm Gran Pct Auto 0.9(H) 0.0 - 0.4 % [facility] Lymphocytes Percent Auto 23.2 20 - 40 % [facility] Monocytes Percent Auto 10.4 2 - 11 % [facility] Eosinophils Percent Auto 0.5 0 - 4 % [facility] Basophils Percent Auto 0.2 0 - 2 % [facility] NRBC Pct Auto 0.0 0.0 - 0.2 /100WBC [facility] Neutrophils Absolute Auto 11.3(H) 2.0 - 8.3 x10*3/uL [facility] Imm Gran Abs Auto 0.16(H) 0.00 - 0.03 X10*3/uL [facility] Lymphocytes Absolute Auto 4.0 1.2 - 4.9 X10*3/uL [facility] Monocytes Absolute Auto 1.8(H) 0.1 - 1.2 X10*3/uL [facility] Eosinophils Absolute Auto 0.1 0.0 - 0.4 X10*3/uL [facility] Basophils Absolute Auto 0.0 0.0 - 0.2 X10*3/uL [facility] NRBC Abs Auto 0.000 0.0 - 0.012 X10*3/uL [facility] 06/25/2024 3:25 PM EST 06/25/2024 3:28 PM EST us Generic External Data Provider LAB BLOOD ORDERAB LES Edited Result - Final [facility] [address] [place] [phone] * Magnesium (06/25/2024 3:25 PM EST) Magnesium 2.1 1.6 - 2.6 mg/dL [facility] 06/25/2024 3:25 PM EST 06/25/2024 3:28 PM EST Generic External Data Provider LAB BLOOD ORDERAB LES Final Result Performing Organization Address [facility] Co de Phone Number [facility] [address] [place] [phone] * Lipase (06/25/2024 3:25 PM EST) Only the most recent of2 resultswithin the time period is included. Lipase 14 8 - 78 U/L [facility] 06/25/2024 3:25 PM EST 06/25/2024 3:28 PM EST Generic External Data Provider LAB BLOOD ORDERAB LES Final Result Performing Organization Address [facility] Co de Phone Number [facility] [address] [place] [phone] * Hepatic Function Panel (06/25/2024 3:25 PM EST) Only the most recent of2 resultswithin the time period is included. Pathologist [facility] Bilirubin, Total 0.3 0.0 - 1.0 mg/dL [facility] Bilirubin, Direct 0.1 0.0 - 0.5 mg/dL [facility] Aspartate Amino Transferase 21 5 - 37 U/L [facility] Alanine Aminotransferase 20 0 - 40 U/L [facility] Total Protein 7.3 6.5 - 8.0 g/dL [facility] Albumin Level 3.7 3.5 - 5.0 g/dL [facility] Alkaline Phosphatase 59 39 - 117 U/L [facility] 06/25/2024 3:25 PM EST 06/25/2024 3:28 PM EST Generic External Data Provider LAB BLOOD ORDERAB LES Final Result Performing Organization Address City/[facility]/ZIP Co de Phone Number [facility] [address] [place] [phone] * (ABNORMAL) Basic Metabolic Panel (06/25/2024 3:25 PM EST) Sodium 136 135 - 145 mmol/L [facility] Potassium 4.2 3.3 - 5.1 mmol/L [facility] Chloride 104 96 - 108 mmol/L [facility] Carbon Dioxide 22 22 - 29 mmol/L [facility] Anion Gap 14 12 - 20 [facility] Urea Nitrogen (BUN) 28(H) 9 - 16 mg/dL [facility] Creatinine, Serum 1.32 0.5 - 1.4 mg/dL [facility] Creatinine Clr Calc Pharmacy 44.1 [facility] Comment:eGFR (calculated fro m the MDRD study equation) and eCrCl(calculated from the Cockcroft-Gault equation) are based ondifferent parameters and may not yield comparable results.If eCrCl result is absurd, please check patient'sheight/weight. Estimated Glomerular Filt Rate 53 [facility] Comment:Chronic Kidney Disea se: Estimated GFR < 60 mL/min/1.21f1Lmoqpi Kidney Disease: Estimated GFR < 15 mL/min/1.73m2 Glucose 268(H) 60 - 115 mg/dL [facility] Calcium 9.0 8.4 - 10.2 mg/dL [facility] 06/25/2024 3:25 PM EST 06/25/2024 3:28 PM EST Generic External Data Provider LAB BLOOD ORDERAB LES Final Result Performing Organization Address City/[facility]/ZIP Co de Phone Number [facility] [address] [place] [phone] * Lactic Acid (06/25/2024 3:24 PM EST) Only the most recent of2 resultswithin the time period is included. Lactic Acid 1.3 0.5 - 2.0 mmol/L [facility] 06/25/2024 3:24 PM EST 06/25/2024 3:28 PM EST us Generic External Data Provider LAB BLOOD ORDERAB LES Final Result Performing Organization Address City/[facility]/ZIP Co de Phone Number [facility] [address] [place] [phone] * (ABNORMAL) Urinalysis, Complete, with Reflex to Culture (06/24/2024 3:39 PM EST) Color Urine Yellow [facility] Appearance Urine Cloudy [facility] PH 5.5 5.0 - 9.0 [facility] Glucose Urine UA >=1000(A) Negative mg/dL [facility] Urine Blood Large (3+)(A) Negative [facility] Specific [place] - Urine >=1.030(H) 1.005 - 1.025 [facility] Urine Protein 30 (1+)(A) Neg-Trace mg/dL [facility] Urine Ketones Negative Negative mg/dL [facility] Nitrite Urine Negative Negative [facility] Leukocyte Esterase Urine Trace(A) Negative [facility] RBC Urine >20(A) 0 - 2 /HPF [facility] Urine WBC 11-20(A) 0 - 5 /HPF [facility] Urine Squamous Epithelial Cell 0-2 0 - 2 /HPF [facility] Urine Bacteria None Seen None Seen [facility] Hyaline Casts, Urine 0-2 0 - 2 /LPF [facility] 06/24/2024 3:39 PM EST 06/24/2024 3:41 PM EST Narrative [facility] - 06/24/2024 4:00 PM EST [id number], Clean Catch us Generic External Data Provider LAB URINE ORDERAB LES Final Result Performing Organization Address City/[facility]/ZIP Co de Phone Number [facility] [address] [place] [phone] * Culture, Urine, Routine (06/24/2024 3:39 PM EST) Urine Urine specimen obtained by clean catch procedure / Unknown 06/24/2024 3:39 PM EST 06/24/2024 4:29 PM EST Comment:[facility] - 06/26/2024 11:47 AM EST Coag negative Staphylococcus Quant 50,000 to 100,000 cfu/mL Susc N/A Susceptibility not routinely performed on this isolate. Specimen Source: Urine clean catch Generic External Data Provider LAB MICROBIOLOGY - GENERAL ORDERABLES Final Result Performing Organization Address City/[facility]/ZIP Co de Phone Number [facility] [address] [place] [phone] * Blood Culture (First) (06/24/2024 3:24 PM EST) Blood Venous blood specimen / Unknown 06/24/2024 3:24 PM EST 06/24/2024 3:29 PM EST Comment:Blood [facility] - 06/29/2024 5:29 PM EST Blood Culture (First) No growth after 5 days. Specimen Source: Blood Generic External Data Provider LAB MICROBIOLOGY - GENERAL ORDERABLES Final Result Performing Organization Address City/[facility]/ZIP Co de Phone Number [facility] [address] [place] [phone] * Blood Culture (Second) (06/24/2024 3:24 PM EST) Blood Venous blood specimen / Unknown 06/24/2024 3:24 PM EST 06/24/2024 3:29 PM EST Comment:Blood [facility] - 06/26/2024 8:43 AM EST [...] on 06/25/24 by SANTOS. Specimen Source: Blood us Generic External Data Provider LAB MICROBIOLOGY - GENERAL ORDERABLES Final Result [facility] [address] [place] [address] [phone] * CT Abdomen Pelvis w/o Contrast (06/24/2024 1:21 PM EST) Anatomical Region Laterality Modality Body, Pelvis, Abdomen Computed T omography 06/24/2024 1:21 PM EST Narrative 06/24/2024 2:15 PM EST ? [facility] ?[address] ?[place] [address] ? CT Scan Report ? Signed ? Patient: Vernon Colon,Frantz ?MR#: [id number] ?? [id number] ? : 1950 ?Acct:[id number] ? Age/Sex: 74 / M ?ADM Date: 06/24/24 ? Loc: HO.ED ? Attending Dr: ? Ordering Physician: Lissette Staley DO ?? Date of Service: 06/24/24 ?? Procedure(s): CT abdomen pelvis wo IV con ?? Accession Number(s): [id number] ? cc: Sindy Obrien MD; Lissette Staley DO ? Report Number: ?? [id number]: Total DLP = ??481.00 mGy-cm ?? EXAMINATION: [...] ??Dusty Henley MD ??06/24/2024 02:12 PM EST ? Dictated By: ?Dusty Henley MD ? Signed By: ?<Electronically signed by Dusty Henley MD in OV> ?06/24/24 1412 ? DD/ 1321 ? TD/TT: 06/24/24 1358 ? Economics Teacher: ? Procedure Note Aminata More - 06/24/[address] [address] [address] Scan Report Signed Patient: Frantz FinkMR#: [id number] : 1Acct:[id number] Age/Sex: 74 / MADM Date: 06/24/24 Loc: HO.ED Attending Dr: Ordering Physician: Lissette Staley DO Date of Service: 06/24/24 Procedure(s): CT abdomen pelvis wo IV con Accession Number(s): [id number] cc: Sindy Obrien MD; Lissette Staley DO Report Number: [id number]: Total DLP = 481.00 mGy-cm EXAMINATION: CT [...] 06/24/24 1412 DD/ 1321 TD/TT: 06/24/24 1358 Economics Teacher: [facility] External Provider IMG CT PROCEDURES Edited Result - Final * (ABNORMAL) Comprehensive Metabolic Panel (06/24/2024 10:08 AM EST) Sodium 137 135 - 145 mmol/L [facility] Potassium 4.8 3.3 - 5.1 mmol/L [facility] Chloride 105 96 - 108 mmol/L [facility] Carbon Dioxide 26 22 - 29 mmol/L [facility] Anion Gap 11(L) 12 - 20 [facility] Urea Nitrogen (BUN) 25(H) 9 - 16 mg/dL [facility] Creatinine, Serum 1.42(H) 0.5 - 1.4 mg/dL [facility] Creatinine Clr Calc Pharmacy 42.2 [facility] Comment:eGFR (calculated fro m the MDRD study equation) and eCrCl(calculated from the Cockcroft-Gault equation) are based ondifferent parameters and may not yield comparable results.If eCrCl result is absurd, please check patient'sheight/weight. Estimated Glomerular Filt Rate 49 [facility] Comment:Chronic Kidney Disea se: Estimated GFR < 60 mL/min/1.78x8Zstwmg Kidney Disease: Estimated GFR < 15 mL/min/1.73m2 Glucose 314(H) 60 - 115 mg/dL [facility] Calcium 9.4 8.4 - 10.2 mg/dL [facility] Bilirubin, Total 0.4 0.0 - 1.0 mg/dL [facility] Aspartate Amino Transferase 19 5 - 37 U/L [facility] Alanine Aminotransferase 24 0 - 40 U/L [facility] Total Protein 8.0 6.5 - 8.0 g/dL [facility] Albumin Level 4.0 3.5 - 5.0 g/dL [facility] Alkaline Phosphatase 66 39 - 117 U/L [facility] 06/24/2024 10:0 8 AM EST 06/24/2024 10:15 AM EST us Generic External Data Provider LAB BLOOD ORDERAB LES Final Result [facility] [address] [place] [phone] * (ABNORMAL) Vitamin B12 (Cobalamin) and Folate Panel, Serum (06/10/2024 11:29 AM EST) Vitamin B12 1,359(H) 200 - 900 pg/mL [facility] Comment:NORMAL 200-900 PG/ML INDETERMINATE 160-199 PG/ML DEFICIENT < 160 PG/ML Folate 17.5 > or = 4.0 ng/mL [facility] Comment:Reference Values:> o r = 4.0 ng/mL< 4.0 ng/mL suggests folate deficiency Methotrexate, aminopterin and folinic acid(leucovorin) are chemotherapeutic agents whose molecularstructures are similar to folate; therefore, the Architectfolate assay cannot be used for patients using these drugs. Blood Venous blood specimen / Unknown 06/10/2024 11:29 AM EST 06/10/2024 1:07 PM EST us Sindy Carlson MD LAB BLOOD ORDERABLES Final Result Performing Organization Address [facility] Co de Phone Number [facility] [address] [place] [phone] * TSH with Reflex to Free T4 (06/10/2024 11:29 AM EST) TSH reflex Free T4 1.22 0.32 - 4.0 uIU/mL [facility] Blood Venous blood specimen / Unknown 06/10/2024 11:29 AM EST 06/10/2024 1:07 PM EST us Sindy Carlson MD LAB BLOOD ORDERABLES Final Result Performing Organization Address [facility] Co ak Phone Number [facility] [address] [place] [phone] * Hepatitis Panel, General (06/10/2024 11:29 AM EST) Hepatitis A IgM Nonreactive Nonreactive [facility] Comment:IgM antibodies to MCCARTHY V not detected; does not exclude earlyacute or recovered HAV infection. ~Hepatitis B Surface Antibody NONREACTIVE Nonreactive [facility] Comment:Nonreactive: < 8.00 mIU/mL Hepatitis B Core Antibody Nonreactive Nonreactive [facility] Hepatitis C Antibody Nonreactive Nonreactive [facility] Comment:Antibodies to HCV no t detected; does not exclude early acuteHCV infection. Hepatitis B Surface Ag Negative Negative [facility] Blood Venous blood specimen / Unknown 06/10/2024 11:29 AM EST 06/10/2024 1:07 PM EST us Sindy Carlson MD LAB BLOOD ORDERABLES Final Result Performing Organization Address [facility] Co de Phone Number [facility] [address] [place] [phone] * Creatinine, Serum (06/10/2024 11:29 AM EST) Only the most recent of2 resultswithin the time period is included. Creatinine, Serum 1.13 0.5 - 1.4 mg/dL [facility] Estimated Glomerular Filt Rate >60 [facility] Comment:Chronic Kidney Disea se: Estimated GFR < 60 mL/min/1.74j5Cdagin Kidney Disease: Estimated GFR < 15 mL/min/1.73m2 06/10/2024 11:2 9 AM EST 06/10/2024 1:07 PM EST us Generic External Data Provider LAB BLOOD ORDERAB LES Final Result Performing Organization Address [facility]/ZIP Co de Phone Number [facility] [address] [place] [phone] * Iron And Total Iron Binding Capacity (06/10/2024 11:29 AM EST) Iron 65 45 - 160 mcg/dL [facility] Total Iron Binding Capacity 283 228 - 428 mcg/dL [facility] Percent Iron Saturation 23 15 - 50 % [facility] Unsaturated Iron Binding 218 ug/dL [facility] Blood Venous blood specimen / Unknown 06/10/2024 11:29 AM EST 06/10/2024 1:07 PM EST us Sindy Carlson MD LAB BLOOD ORDERABLES Final Result Performing Organization Address [facility]/ZIP Co de Phone Number [facility] [address] [place] [phone] * RPR (Monitor) with Reflex to??Titer (06/10/2024 11:29 AM EST) RPR (Monitor) w/Refl Titer NON-REACTI VE NON-REACT CRISPIN [facility] Comment:THIS TEST WAS PERFOR MED AT:[employer] [place] [phone] SINHA MD Rapid Plasma Reagin Ab Titer TNP [facility] Blood Venous blood specimen / Unknown 06/10/2024 11:29 AM EST 06/10/2024 1:07 PM EST us Sindy Carlson MD LAB BLOOD ORDERABLES Final Result Performing Organization Address City/[facility] Co de Phone Number [facility] [address] [place] [phone] * BUN (Blood Urea Nitrogen) (06/10/2024 11:29 AM EST) Only the most recent of2 resultswithin the time period is included. Urea Nitrogen (BUN) 10 9 - 16 mg/dL [facility] 06/10/2024 11:2 9 AM EST 06/10/2024 1:07 PM EST us Generic External Data Provider LAB BLOOD ORDERAB LES Final Result Performing Organization Address [facility] Co de Phone Number [facility] [address] [place] [phone] * Ferritin (06/10/2024 11:29 AM EST) Ferritin 89 20 - 250 ng/mL [facility] Blood Venous blood specimen / Unknown 06/10/2024 11:29 AM EST 06/10/2024 1:07 PM EST us Sindy Carlson MD LAB BLOOD ORDERABLES Final Result Performing Organization Address [facility] Co de Phone Number [facility] [address] [place] [phone] * (ABNORMAL) Electrolyte Panel (06/10/2024 11:29 AM EST) Only the most recent of2 resultswithin the time period is included. Sodium 138 135 - 145 mmol/L [facility] Potassium 4.1 3.3 - 5.1 mmol/L [facility] Chloride 107 96 - 108 mmol/L [facility] Carbon Dioxide 26 22 - 29 mmol/L [facility] Anion Gap 9(L) 12 - 20 [facility] 06/10/2024 11:2 9 AM EST 06/10/2024 1:07 PM EST us Generic External Data Provider LAB BLOOD ORDERAB LES Final Result [facility] [address] [place] [phone] * (ABNORMAL) POCT HGB A1C (06/06/2024 1:19 PM EST) Pathologist [facility] Hemoglobin A1C 11.9(A) 4.0 - 6.0 % QC Media Lot # [id number] Lot# Expiration Date Blood 06/06/2024 1:19 PM EST Sindy Carlson MD POINT OF CARE TEST EN TER/EDIT ORDERABLES Final Result * (ABNORMAL) POCT Glucose (06/06/2024 1:19 PM EST) Pathologist [facility] Glucose Blood, POC 299(A) 60 - 200 mg/dL QC Media Lot # [id number] Lot# Expiration Date Blood Capillary blood specimen / Unknown 06/06/2024 1:19 PM EST Sindy Carlson MD POINT OF CARE TEST EN TER/EDIT ORDERABLES Final Result * Drug Monitoring, Methadone Metabolite, Screen, Urine (05/09/2024 1:00 PM EST) Pathologist [facility] Methadone Screen, Urine Not Detected Not Detect ng/mL [facility] Comment:Methadone cut-off is 300 ng/mL.Positive results are unconfirmed and should not be used fornon-medical purposes. Urine (Urine, Random) 05/09/2024 1:00 PM EST 05/09/2024 5:59 PM EST Sindy Carlson MD LAB URINE ORDERABLES Final Result [facility] [address] [place] [phone] * Hm Colonoscopy (01/23/2023) Historical Provider HEALTH MAINTENANCE Final Result * (ABNORMAL) LIPID PANEL, STANDARD (12/30/2021 9:07 AM EDT) Chol/HDLC Ratio 3.8 <5.0 (calc) [facility] Cholesterol, Total 115 <200 mg/dL [facility] HDL Cholesterol 30(L) > OR = 40 mg/dL [facility] LDL Cholesterol 64 mg/dL (calc) [facility] Comment: Reference range: <100 ?? Desirable range <100 mg/dL for primary prevention; ?? <70 mg/dL for patients with CHD or diabetic patients ?? with > or = 2 CHD risk factors. ?? LDL-C is now calculated using the Cory-White ?? calculation, which is a validated novel method providing ?? better accuracy than the Friedewald equation in the ?? estimation of LDL-C. ?? Cory LYLES et al. LILY. 2013;310(19): 7550-7399 ?? (http://education.ITM Software.Huupy/faq/QYP469) Non-HDL Cholesterol 85 <130 mg/dL (calc) [facility] Comment: For patients with diabetes plus 1 major ASCVD risk ?? factor, treating to a non-HDL-C goal of <100 mg/dL ?? (LDL-C of <70 mg/dL) is considered a therapeutic ?? option. Triglycerides 129 <150 mg/dL [facility] 12/30/2021 9:07 AM EDT Sindy Carlson MD LAB BLOOD ORDERABLES Final Result [facility] [address] [place] [address], * (ABNORMAL) OCCULT BLOOD STOOL X3 (06/28/2019 12:00 AM EST) OCCULT BLOOD STOOL-1 NEG NEG [facility] OCCULT BLOOD STOOL-1 DATE 06/25/19 [facility] OCCULT BLOOD STOOL-2 POS(AA) NEG [facility] OCCULT BLOOD STOOL-2 DATE 06/26/19 [facility] OCCULT BLOOD STOOL-3 POS(AA) NEG [facility] OCCULT BLOOD STOOL-3 DATE 06/28/19 [facility] 06/28/2019 Sindy Carlson MD HISTORICAL/NON ORDERA BLE LABS Final Result Performing Organization Address City/[facility]/ZIP Co de Phone Number [facility] [address] [place] [address], from Last 3 Months or Most Recently Relevant to Health Maintenance Insurance [facility] [address] [place] [address] Care Teams Data Specialist Relationship Specialty Start Date End Date Sindy Obrien MD [address], [place] [phone] PCP - General Family Medicine 03/28/19
[2024-07-19 11:34] LABS: Estimated Average Glucose 292 mg/dL; Hemoglobin A1C 333.5438 umol/L; Hemoglobin A1c % 11.8 % (<6.0); Total Hemoglobin (HGBA1C) 3162.1592 umol/L
[2024-07-19 12:52] LABS: Anion Gap 10 (12-20); Blood Urea Nitrogen 14 mg/dL (9-16); Carbon Dioxide 24 mmol/L (22-29); Chloride 107 mmol/L (96-108); Estimated Glomerular Filt Rate > 60; Potassium 4.5 mmol/L (3.3-5.1); Sodium 136 mmol/L (135-145)
[2024-07-19 13:06] LABS: Protein/Creatinine Ratio, Ur 0.18 (<0.2); Total Protein Urine Random 12 mg/dL (<12)
== END 2024-07-19 10:10 | disposition home or self-care (01) ==
LOC: HO.LAB 10:09
PROVIDERS: PCP Internal Medicine; Visit Provider Internal Medicine Nephrology
DX: N20.0 Calculus of kidney (principal); I10 Essential (primary) hypertension; N18.31 Chronic kidney disease, stage 3a; Z13.1 Encounter for screening for diabetes mellitus
CPT/HCPCS: 36415; 80051; 82565; 82570; 83036; 84156; 84520

== ENCOUNTER 2024-08-02 14:08 | Outpatient (AMB) | payer OTHER, SELFPAY ==
--- NOTE | 2024-08-02 14:18 | A.OFFVIS_ITS ---
Intake Visit Reasons: Stent Removal Intake Note: Patient is present for STENT REMOVAL Urology Medication:VITAMIN B12 Antibiotic Allergy:NONE Blood Thinner:NONE Percussion Teacher Required: No Allergies No Known Allergies [No Known Allergies*] Allergy (Verified 08/02/24 14:24) HPI Comments Details: Frantz is a pleasant Welsh-speaking male. He is a patient of Dr. Carlson. He seen for the following urologic conditions - nephrolithiasis Here for cystoscopy stent removal Recommend increased fluids Lemon water therapy 4 month follow-up renal ultrasound Nephrolithiasis Initial presentation Recent stent placement 07/02 Found to have inflamed ureter at time of placement Imaging - 07/02 CT moderate right hydroureteronephrosis to the level of two adjacent 2-3 mm calculi at the UVJ. There is no left hydronephrosis or hydroureter Therapeutic plan - increase fluids - vitamin B6 - interval surveillance [facility] Medical History (Updated 08/02/24 @ 14:57 by Amrik Garrett MD) Renal calculi Diabetes History of gastrectomy History of colon polyps Gastrointestinal stromal tumor (GIST) (~2014) Gastric adenocarcinoma Hydrocele Gastritis Vitamin B12 deficiency Hypercholesterolemia Hypertension Depression Surgical History (Updated 07/26/24 @ 13:15 by Christa Ferrera MD) H/O lithotripsy Hx of resection of stomach Hx of esophagogastroduodenoscopy Hx of endoscopy History of hernia repair History of back surgery (~2016) History of colonoscopy (~07/22/19) History of esophagogastroduodenoscopy (EGD) (07/22/19) Family History Father No problems noted. Mother History of cancer Social History Household Members: Spouse Housing: Apartment Are you a primary day care home mother to a significant other at home: No Do you presently have visiting nurse or other home services: No Alcohol intake: former Patient Tobacco Use Status: Former Tobacco user Tobacco use type: Cigarette Years Smoked: 35 Advance Directives Date on File: 06/27/24 service: No Current occupational status: retired Review of Systems Const Denies chills and Denies fever(s) Card Reports no additional complaints and Denies syncope Resp Denies cough GI Denies abdominal pain and Denies heartburn Reports as per HPI and Denies change in libido Neuro Denies syncope Psych Denies change in libido Endo Denies change in libido Physical Exam Const General: cooperative, healthy appearing, comfortable and no acute distress Orientation/consciousness: patient oriented x3 HEENT Face and sinus: Yes normal facial exam Mouth: moist mucous membranes Neck Neck: Yes normal visual inspection, Yes full ROM and Yes trachea midline Chest Chest palpation & inspection: normal inspection of the chest Resp Effort & Inspection: normal respiratory effort, able to speak in complete sentences and no respiratory distress GI Inspection: Yes normal to inspection Back/Spine/Pelvis Cervical Spine: normal cervical lordosis Thoracic/Lumbar Spine: thoracic and lumbar spine normal to inspection Skin General skin exam: no rashes or lesions noted Neuro General: patient oriented x3, gait normal, tone normal and moves all extremities Extrem General: Yes normal to inspection and Yes capillary refill normal Office Procedures Cystoscopy Consent Discussed risk and benefit or proposed procedure with the patient. Information consent for procedure given to the patient. Discussed technical aspects, risks, benefits and alternatives in full. Addressed all of the patient's questions and concerns regarding the procedure. The patient demonstrated knowledge and u nderstanding. They wish to proceed with this procedure. Preparation The patient was prepped in the usual manner. A home service advisor was present and in the room. Genitalia was prepped with betadine solution in a sterile manner. Lidocaine Jelly 2% was placed into the urethra and 16Fr flexible Olympus cystoscope was inserted into the meatus after adequate lubrication. Procedure A well lubricated 16 Comoran cystoscope was placed No abnormality noted of urethra during placement Indwelling stent seen within bladder emerging from right ureteric orifices The stent was grasped with a 3 prong grasper and removed without difficulty The patient tolerated the procedure well [id number] with stent removal DISPOSABLE SCOPE URO-G FLEXIBLE SCOPE Procedure code (CPT) selection complete Office Meds lidocaine HCl 2 % mucosal jelly in applicator Performing Provider: Amrik Garrett MD Performing Location: [facility] Administered by: Vinnie Duncan LPN on 08/02/24 14:43 Dose Route Admin Location Dispensed Lot Number Expiration Date ND Chalk Extruding Machine Operator 10 mL intra-urethral 10 mL nitrofurantoin monohydrate/macrocrystals 100 mg capsule Performing Provider: Amrik Garrett MD Performing Location: [facility] Administered by: Vinnie Duncan LPN on 08/02/24 14:43 Dose Route Admin Location Dispensed Lot Number Expiration Date NDC Chalk Extruding Machine Operator 100 mg PO 1 cap naproxen 500 mg tablet Performing Provider: Amrik Garrett MD Performing Location[facility] Administered by: Vinnie Duncan LPN on 08/02/24 14:43 Dose Route Admin Location Dispensed Lot Number Expiration Date NDC Chalk Extruding Machine Operator 500 mg PO 1 tab Assessment & Plan Assessment & Plan (1) Renal calculi: Code(s): N20.0 - Calculus of kidney Category: Medical (2) Hydrocele: Code(s): N43.3 - Hydrocele, unspecified Category: Medical Plan Four month follow-up renal ultrasound Orders: Orders AMB Urinalysis Automated Today Z13.9 - Encounter for screening, unspecified AMB Cystoscopy Today N13.2 - Hydronephrosis with renal and ureteral calculous obstruction, N20.0 - Calculus of kidney Patient Instructions: This note is constructed using voice recognition software. While every effort has been made to ensure accuracy workforce management analyst errors may have been included. Imaging studies, laboratory and physical exam results were discussed and reviewed in detail. No major barriers to patient understanding were identified. An opportunity to ask questions regarding the treatment plan was provided. All questions were answered. The patient expressed understanding and agreement with the above treatment plan. The patient is aware they should contact our office by phone for worsening of their current condition or the appearance of new urologic symptoms. Compliance is encouraged with any medications and followup testing that is ordered. It is a privilege to participate in the urologic care of your patient. If you have any questions or concerns regarding treatment for the above conditions, or other urologic issues, please do not hesitate to contact me. The office telephone contact is [phone]. Sincerely, Dr Amrik Garrett MD, [facility] - Urology Compassionate Specialist Care for the Genitourinary System Coding Level of Care Code Est Pt Level 3 (63834) Diagnoses Renal calculi N20.0 Hydrocele N43.3 CPT Codes Cystoscopy - CPT: 98939-[id number] with stent removal ([id number])
--- OUTSIDE RECORDS SUMMARY | 2024-08-02 17:42 | XMS_ITS | Encounter Summary ---
Author Organization [employer] Address [address] [facility] 7t [place] [address] Care Team Providers Care Digital Media Sales Consultant Name Role Phone Sindy Obrien MD Primary Care Provide r Reason for Visit * Reason Onset Date Comments Med Refill 07/12/2024 Encounter Details Date Type Department Care Team (Late st Contact Info) Description 07/12/2024 Refill [facility] MED[facility]INE [address] [place] [address] 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 RN Chronic right shoulder pain [...] - 07/12/2024 1:10 PM EST Pt had VEHICLE SALES PROFESSIONAL RV appt today Oxycodone count was 2, anticipated 8. He stated he was taking an additional dose during his kidney stone pain. Advised to take as prescribed and call PCP before increasing his own dose documented in this encounter Plan of Treatment Upcoming Encounters Date Type Department Care Team (Late st Contact Info) Description 09/12/2024 1:00 PM EDT Clinical Support [facility] MEDICINE [address] [place] [address] 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, RN documented as of this encounter Goals Goal Patient Goal Type Associated Problems Recent Progress Patient-Stated? Author Hemoglobin A1c < 8 Result Component 11.8( 10:23 AM EST) No Caroline Neri, PharmD documented as of this encounter Visit Diagnoses Diagnosis Chronic right shoulder pain Pain in joint, shoulder region documented in this encounter Additional Health Concerns Assessment Noted Time PHQ-9 Depression Total Score: 0 06/06/20 24 1:16 PM EST documented as of this encounter Care Teams Digital Media Sales Consultant Relationship Specialty Start Date End Date Sindy Obrien MD [address] [place] [address] PCP - General Family Medicine 03/28/19 documented as of this encounter
--- OUTSIDE RECORDS SUMMARY | 2024-08-02 17:42 | XMS_ITS | Encounter Summary ---
Author Organization [employer] Address [address] [facility] [address] [place] [address] Care Team Providers Care Content Curator Name Role Phone Sindy Obrien MD Primary Care Provide r Reason for Visit * Reason Comments Med Refill Encounter Details Date Type Department Care Team ([facility] st Contact Info) Description 06/02/2023 Refill [facility] MEDICINE [address] [place] [address] Sindy Obrien MD [address] [place] [address] Vitamin D deficiency, unspecified Social History Tobacco [...] Description 09/12/2024 1:00 PM EDT Clinical Support [facility] [address] [place] [phone] 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 RN documented as of this encounter Visit Diagnoses Diagnosis Vitamin D deficiency, unspecified documented in this encounter Additional Health Concerns Assessment Noted Time PHQ-9 Depression Total Score: 0 10/24/19 23 3:05 PM EDT documented as of this encounter Care Teams Content Curator Relationship Specialty Start Date End Date Sindy Obrien MD [address] [place] [phone] PCP - General Family Medicine 03/28/19 documented as of this encounter
--- OUTSIDE RECORDS SUMMARY | 2024-08-02 17:42 | XMS_ITS | Encounter Summary ---
Author Organization [employer] Address [address] [facility] [address] [place] [address] Care Team Providers Care Pantry Goods Worker Name Role Phone Sindy Obrien MD Primary Care Provide r Reason for Visit * Reason Comments Med Refill Encounter Details Date Type Department Care Team ([facility] st Contact Info) Description 05/20/2024 Refill [facility] MED & PEDS [address] [place], [place] [phone] Sindy Obrien MD [address] [place] [address] HTN (hypertension), benign; Type 2 diabetes mellitus with hyperglycemia, with long-term current use of insulin ([facility]) Social History Tobacco Use Types Packs/Day Years [...] Description 09/12/2024 1:00 PM EDT Clinical Support [facility] MEDICINE [address] [place] [address] 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 RN documented as of this encounter Goals Goal Patient Goal Type Associated Problems Recent Progress Patient-Stated? Author Hemoglobin A1c < 8 Result Component 11.8( 10:23 AM EST) No Caroline Neri, PharmD documented as of this encounter Visit Diagnoses Diagnosis HTN (hypertension), benign Essential hypertension, benign Type 2 diabetes mellitus with hyperglycemia, with long-term current use of insulin ([facility]) documented in this encounter Additional Health Concerns Assessment Noted Time PHQ-9 Depression Total Score: 0 10/24/19 23 3:05 PM EDT documented as of this encounter Care Teams Pantry Goods Worker Relationship Specialty Start Date End Date Sindy Obrien MD [address] [place] [address] PCP - General Family Medicine 03/28/19 documented as of this encounter
--- OUTSIDE RECORDS SUMMARY | 2024-08-02 17:42 | XMS_ITS | Encounter Summary ---
Author Organization [employer] Address [address] [facility] 7t [place] [address] Care Team Providers Care Aquatics Assistant Department Head Name Role Phone Sindy Obrien MD Primary Care Provide r Reason for Visit * Reason Onset Date Comments FYI 11/18/2023 Encounter Details Date Type Department Care Team ([facility] Contact Info) Description 11/18/2023 Telephone [facility] MEDICINE [address] [place], [place] [phone] Sindy Obrien MD [address] [place], [place] [phone] FYI Social History Tobacco Use Types Packs/Day [...] Description 09/12/2024 1:00 PM EDT Clinical Support [facility] MEDICINE [address] [place] [address] 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, MANSI documented as of this [...] documented as of this encounter Care Teams Aquatics Assistant Department Head Relationship Specialty Start Date End Date Sindy Obrien MD [address] [place] [address] PCP - General Family Medicine 03/28/19 documented as of this encounter
--- OUTSIDE RECORDS SUMMARY | 2024-08-02 17:42 | XMS_ITS | Encounter Summary ---
Author Organization [employer] [facility] Address [address] [facility] 7t [place] [address] Care Team Providers Care Loft Worker Head Name Role Phone Sindy Obrien MD Primary Care Provide r Encounter Details Date Type Department Care Team ([facility] Contact Info) Description 02/13/2023 Orders Only [facility] MEDICINE [address] [place] [phone] Provider, Oren, Social History Tobacco Use Types Packs/Day Years [...] Department Care Team (Late Contact Info) Description 09/12/2024 1:00 PM EDT Clinical Support [address] [phone] 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 RN documented as of this encounter Procedures Procedure Name Priority Date/Time Associated Diagnosis Comments HM COLONOSCOPY Routine 01/23/2023 documented in this encounter Results * Hm Colonoscopy (01/23/2023) Historical Provider HEALTH MAINTENANCE Final Result documented in this encounter Visit Diagnoses Not on filedocumented in this encounter Additional Health Concerns Assessment Noted Time PHQ-9 Depression Total Score: 0 10/24/19 23 3:05 PM EDT documented as of this encounter Care Teams Loft Worker Head Relationship Specialty Start Date End Date Sindy Obrien MD [address] [place] [address] PCP - General Family Medicine 03/28/19 documented as of this encounter
--- OUTSIDE RECORDS SUMMARY | 2024-08-02 17:42 | XMS_ITS | Encounter Summary ---
Author Organization [employer] [facility] Address [address] [facility] [address]t [place] [address] Care Team Providers Care Dock Clerk Name Role Phone Sindy Obrien MD Primary Care Provide r Reason for Visit * Reason Comments FIRER WATERTENDER RV FIRER WATERTENDER RV Encounter Details Date Type Department Care Team (Latest Contact Info) Description 07/12/2024 1:00 PM EST Clinical Support [facility] MEDICINE [address] [place] [address] 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 RN Chronic right shoulder pain [...] Current pain sites are his hands. O: FIRER WATERTENDER Tier 2. Pt currently prescribed Oxycodone 5mg Q8hr PRN. HIGH SCHOOL TEACHER verified today. Rx last filled on 06/17/24. [...] count. Last PCP visit was 06/06/24. A: FIRER WATERTENDER Contract Revisit: Chronic Opioid use related to pain. P: Pt to continue taking medication only as prescribed; Next FIRER WATERTENDER RV appointment scheduled for 09/12/24 @ 1pm, F/U sooner PRN. Appointment reminder given. Pt verbalized understanding and agreed to plan. . documented in this encounter Plan of Treatment Upcoming Encounters Date Type Department Care Team (Late st Contact Info) Description 09/12/2024 1:00 PM EDT Clinical Support [facility] MEDICINE [address] [place] [address] 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, RN documented as of this [...] Unknown 07/12/2024 1:05 PM EST Narrative 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 RN - 07/12/2024 1:05 PM EST [employer] cup Lot#[id number] Exp. 03/02/26 Internal Pass Control us Sindy Carlson MD POINT OF CARE TEST EN TER/EDIT ORDERABLES Final Result documented in this encounter Visit Diagnoses Diagnosis Chronic right shoulder pain- Primary Pain in joint, shoulder region documented in this encounter Additional Health Concerns Assessment Noted Time PHQ-9 Depression Total Score: 0 06/06/20 24 1:16 PM EST documented as of this encounter Care Teams Dock Clerk Relationship Specialty Start Date End Date Sindy Obrien MD [address] [place] [address] PCP - General Family Medicine 10/21/19 documented as of this encounter
--- OUTSIDE RECORDS SUMMARY | 2024-08-02 17:42 | XMS_ITS | Encounter Summary ---
Author Organization [employer] [facility] Address [address] [facility] [address] [place] [address] Care Team Providers Care Designer Architect Name Role Phone Sindy Obrien MD Primary Care Provide r Reason for Visit * Reason Comments Med Refill Encounter Details Date Type Department Care Team (Late Contact Info) Description 10/29/2022 Refill [facility] MEDICINE [address] [place] [address] [facility] [address] [place] [address] Depressive disorder Social History Tobacco Use Types [...] Upcoming Encounters Date Type Department Care Team ([facility] Contact Info) Description 09/12/2024 1:00 PM EDT Clinical Support [facility] MEDICINE [address] [place] [address] 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 RN documented as of this encounter Visit Diagnoses Diagnosis Depressive disorder Depressive disorder, not elsewhere classified documented in this encounter Additional Health Concerns Assessment Noted Time PHQ-9 Depression Total Score: 0 10/24/19 23 3:05 PM EDT documented as of this encounter Care Teams Designer Architect Relationship Specialty Start Date End Date Sindy Obrien MD [address] [place] [address] PCP - General Family Medicine 03/28/19 documented as of this encounter
--- OUTSIDE RECORDS SUMMARY | 2024-08-02 17:42 | XMS_ITS | Clinical Summary ---
Author Organization [facility] Address [address] [place] [address] Care Team Providers Care Senior Principal Process Engineer Name Role Phone Sindy Obrien MD [...] patient's age to complete this topic [place] [address] [place] [address] ([id number]) [facility] ([id number]) Care Teams Senior Principal Process Engineer Relationship Specialty Start Date End Date Sindy Obrien MD [address] [place] [phone] PCP - General Internal Medicine 01/01/22
--- OUTSIDE RECORDS SUMMARY | 2024-08-02 17:42 | XMS_ITS | Encounter Summary ---
Author Organization [employer] Address [address] 7[address] [place] [address] Care Team Providers Care Pillar Worker Name Role Phone Sindy Obrien MD Primary Care Provide r Reason for Visit * Reason Comments Med Refill Encounter Details Date Type Department Care Team ([facility] st Contact Info) Description 09/03/2023 Refill [facility] [address] [place] [address] Sindy Obrien MD [address] [place] [address] Chronic right shoulder pain Social History Tobacco [...] Description 09/12/2024 1:00 PM EDT Clinical Support [facility] [address] [place] [phone] 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 RN documented as of this encounter Visit Diagnoses Diagnosis Chronic right shoulder pain Pain in joint, shoulder region documented in this encounter Additional Health Concerns Assessment Noted Time PHQ-9 Depression Total Score: 0 10/24/19 23 3:05 PM EDT documented as of this encounter Care Teams Pillar Worker Relationship Specialty Start Date End Date Sindy Obrien MD [address] [place] [phone] PCP - General Family Medicine 03/28/19 documented as of this encounter
--- OUTSIDE RECORDS SUMMARY | 2024-08-02 17:42 | XMS_ITS | Encounter Summary ---
Author Organization [employer] Address [address] 7t [place] [address] Care Team Providers Care Driver License Technician Name Role Phone Sindy Obrien MD Primary [...] Description 09/12/2024 1:00 PM EDT Clinical Support [facility] [address] [place] [address] 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, RN documented as of this [...] documented as of this encounter Care Teams Driver License Technician Relationship Specialty Start Date End Date Sindy Obrien MD [address] [place] [address] PCP - General Family Medicine 03/28/19 documented as of this encounter
--- OUTSIDE RECORDS SUMMARY | 2024-08-02 17:42 | XMS_ITS | Encounter Summary ---
Author Organization [employer] Address [address] 7[address] [place] [address] Care Team Providers Care Acid Crane Operator Name Role Phone Sindy Obrien MD Primary Care Provide r Reason for Visit * Reason Comments Med Refill Encounter Details Date Type Department Care Team ([facility] st Contact Info) Description 04/26/2023 Refill [facility] [address] [place] [address] Sindy Obrien MD [address] [place] [address] HTN (hypertension), benign Social History Tobacco Use [...] Description 09/12/2024 1:00 PM EDT Clinical Support [facility]INE [address] [place] [phone] 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 RN documented as of this encounter Visit Diagnoses Diagnosis HTN (hypertension), benign Essential hypertension, benign documented in this encounter Additional Health Concerns Assessment Noted Time PHQ-9 Depression Total Score: 0 10/24/19 23 3:05 PM EDT documented as of this encounter Care Teams Acid Crane Operator Relationship Specialty Start Date End Date Sindy Obrien MD [address] [place] [phone] PCP - General Family Medicine 03/28/19 documented as of this encounter
--- OUTSIDE RECORDS SUMMARY | 2024-08-02 17:42 | XMS_ITS | Encounter Summary ---
Author Organization [employer] Address [address] [place] [address] Care Team Providers Care Hydrate Control Tender Name Role Phone Sindy Obrien MD Primary Care Provide r Encounter Details Date Type Department Care Team (Late st Contact Info) Description 07/19/2024 Orders Only GENERIC EXTERNAL DATA DEPARTMENT Provider, [...] Description 09/12/2024 1:00 PM EDT Clinical Support [facility]ICINE [address] [place] [address] 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 RN documented as of this encounter Goals Goal Patient Goal Type Associated Problems Recent Progress Patient-Stated? Author Hemoglobin A1c < 8 Result Component 11.8( 10:23 AM EST) No Caroline Neri, PharmD documented as of this encounter Procedures Procedure Name Priority Date/Time Associated Diagnosis Comments CREATININE, SERUM Routine 07/19/2024 10: 23 AM EST UREA NITROGEN (BUN) Routine 07/19/2024 1 0:23 AM EST HEMOGLOBIN A1C Routine 07/19/2024 10:23 AM EST ELECTROLYTE PANEL Routine 07/19/2024 10: 23 AM EST PROTEIN CREATININE RATIO, URINE Routine 07/19/2024 10:21 AM EST documented in this encounter Results * Creatinine, Serum (07/19/2024 10:23 AM EST) Creatinine, Serum 1.17 0.5 - 1.4 mg/dL [facility] Estimated Glomerular Filt Rate >60 [facility] Comment:Chronic Kidney Disea se: Estimated GFR < 60 mL/min/1.89m3[place] Kidney Disease: Estimated GFR < 15 mL/min/1.73m2 07/19/2024 10:2 3 AM EST 07/19/2024 10:23 AM EST Generic External Data Provider LAB BLOOD ORDERAB LES Final Result Performing Organization Address [facility]/ZIP Co de Phone Number [facility] [address] [place] [phone] * BUN (Blood Urea Nitrogen) (07/19/2024 10:23 AM EST) Urea Nitrogen (BUN) 14 9 - 16 mg/dL [facility] 07/19/2024 10:2 3 AM EST 07/19/2024 10:23 AM EST Generic External Data Provider LAB BLOOD ORDERAB LES Final Result Performing Organization Address [facility] Co de Phone Number [facility] [address] [place] [phone] * (ABNORMAL) Electrolyte Panel (07/19/2024 10:23 AM EST) Sodium 136 135 - 145 mmol/L [facility] Potassium 4.5 3.3 - 5.1 mmol/L [facility] Chloride 107 96 - 108 mmol/L [facility] Carbon Dioxide 24 22 - 29 mmol/L [facility] Anion Gap 10(L) 12 - 20 [facility] 07/19/2024 10:2 3 AM EST 07/19/2024 10:23 AM EST Generic External Data Provider LAB BLOOD ORDERAB LES Final Result Performing Organization Address [facility] Co de Phone Number [facility] [address] [place] [phone] * (ABNORMAL) Hemoglobin A1c (07/19/2024 10:23 AM EST) Hemoglobin A1c 11.8(H) <6.0 % [facility] Comment:Hemoglobin A1C Refer ence Range Adults: 4.8 - 6.0 % Non diabetic: < 6.0 % Goal: < 7.0 %Additional Action Suggested: > 8.0 %Note: Hemoglobin A1c results are invalid for patients with abnormal amounts of HbF. Blood transfusions may impact the HbA1c concentration in the patient sample. Estimated Average Glucose 292 mg/dL [facility] Comment:eAG = Estimated ave rage glucose which is %A1C expressed asaverage glucose, using the formula of the D1K-AavnsruThsoars Glucose study (ADAG), Diabetes Care, Vol.31,#8,Jan. 2007 07/19/2024 10:2 3 AM EST 07/19/2024 10:23 AM EST Generic External Data Provider LAB BLOOD ORDERAB LES Final Result Performing Organization Address [facility] de Phone Number [facility] [address] [place] [phone] * Protein Creatinine Ratio, Urine (07/19/2024 10:21 AM EST) Creatinine, Urine 66.50 mg/dL [facility] Protein, Total, Random Urine 12 <12 mg/dL [facility] Protein/Creatin ine Ratio, Ur 0.18 <0.2 [facility] Comment:The spot urine prote in:creatinine ratio may increase to 0.3during normal . 07/19/2024 10:2 1 AM EST 07/19/2024 11:12 AM EST Generic External Data Provider LAB URINE ORDERAB LES Final Result Performing Organization Address [facility] de Phone Number [facility] [address] [place] [phone] documented in this encounter Visit Diagnoses Not on filedocumented in this encounter Additional Health Concerns Assessment Noted Time PHQ-9 Depression Total Score: 0 06/06/20 24 1:16 PM EST documented as of this encounter Care Teams Hydrate Control Tender Relationship Specialty Start Date End Date Sindy Obrien MD [address] [place] [phone] PCP - General Family Medicine 03/28/19 documented as of this encounter
--- OUTSIDE RECORDS SUMMARY | 2024-08-02 17:42 | XMS_ITS | Encounter Summary ---
Author Organization [employer] [facility] Address [address] [facility] 7t [place] [address] Care Team Providers Care Hr Consultant Name Role Phone Sindy Obrien MD Primary Care Provide r Encounter Details Date Type Department Care Team (Late st Contact Info) Description 05/20/2022 Orders Only [facility] [address] [place] [phone] Bhakti Paredes DO [address] [place], [place] [phone] Hypertension, unspecified type (Primary Dx) Social History [...] Description 09/12/2024 1:00 PM EDT Clinical Support [facility] [address] [place] [phone] 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 RN documented as of this encounter Procedures Procedure Name Priority Date/Time Associated Diagnosis Comments BASIC METABOLIC PANEL Routine 07/08/2022 2:26 PM EST Hypertension, unspecified type documented in this encounter Results * (ABNORMAL) Basic Metabolic Panel (07/08/2022 2:26 PM EST) Glucose 444(H) 65 - 139 mg/dL [facility] Comment: Verified by repeat analysis. ? Non-fasting reference interval Urea Nitrogen (BUN) 14 7 - 25 mg/dL [facility] Creatinine, Serum 1.23 0.70 - 1.28 mg/dL [facility] [employer] eGFR 62 > OR = 60 mL/min/1 .73m2 [facility] [employer] Comment: The eGFR is based on the CKD-EPI 2020 equation. To calculate the new eGFR from a previous Creatinine or Cystatin C result, go to https://www.kidney.org/professionals/ kdoqi/gfr%5Fcalculator BUN/Creatinine Ratio NOT APPLICABLE 6 - 22 (calc) [facility] [employer] Sodium 132(L) 135 - 146 mmol/L [facility] [employer] Potassium 4.3 3.5 - 5.3 mmol/L [facility] [employer] Chloride 96(L) 98 - 110 mmol/L [facility] [employer] Carbon Dioxide 29 20 - 32 mmol/L [facility] [employer] Calcium 9.3 8.6 - 10.3 mg/dL [facility] [employer] Blood Venous blood specimen / Unknown 07/08/2022 2:26 PM EST 07/08/2022 2:27 PM EST Narrative [facility] - 07/09/2022 12:11 PM EST FASTING:NO FASTING: NO us Bhakti Paredes DO LAB BLOOD ORDERABLES Final R esult [facility] [address] [facility], [place] [address] [facility] [employer] [address] [facility], ([address]) [place] [phone] documented in this encounter Visit Diagnoses Diagnosis Hypertension, unspecified type- Primary documented in this encounter Care Teams Hr Consultant Relationship Specialty Start Date End Date Sindy Obrien MD [address] [place] [address] PCP - General Family Medicine 03/28/19 documented as of this encounter
--- OUTSIDE RECORDS SUMMARY | 2024-08-02 17:42 | XMS_ITS | Clinical Summary ---
Author Organization [employer] Address [address] [facility] [address] [place] [address] Care Team Providers Care Pony Edger Name Role Phone Sindy Obrien MD Primary [...] hyperglycemia, with long-term current use of insulin ([facility]) Inject 4.5 mg under the skin 1 (one) time per week. 4 each 023 Active Continuous Blood Gluc Java Scala Developer (FreeStyle Antione 2 [place]) deviceIndicatio ns:Type 2 diabetes mellitus with hyperglycemia, with long-term current use of insulin ([facility]) Scan sensor every 8 hours 1 each 024 Active glucose blood (FreeStyle Precision Irwin Test) test stripIndication s:Type 2 diabetes mellitus with hyperglycemia, with long-term current use of insulin ([facility]) Use to test blood sugar 3 times daily 100 each 12 024 2024 Active glipiZIDE XL (Glucotrol XL) 10 MG 24 hr tabletIndicatio ns:Type 2 diabetes mellitus with hyperglycemia, with long-term current use of insulin ([facility]) TAKE 1 TABLET BY MOUTH TWICE DAILY [...] hyperglycemia, without long-term current use of insulin ([facility]) USE DIRECTED ONCE DAILY 100 each 12 Active atorvastatin (Lipitor) 20 MG tablet Take 1 tablet (20 mg) by mouth in the morning. 90 tablet 1 Active Continuous Glucose Sensor (FreeStyle Antione 2 Sensor) miscIndications :Type 2 diabetes mellitus with hyperglycemia, with long-term current use of insulin ([facility]) USE TO TEST BLOOD SUGAR. CHANGE EVERY [...] hyperglycemia, with long-term current use of insulin ([facility]) Take 1 tablet (10 mg) by mouth Once per day. 30 tablet 11 024 2024 Active insulin glargine (Lantus SoloStar) 100 UNIT/ML penIndications: Type 2 diabetes mellitus with hyperglycemia, with long-term current use of insulin ([facility]) INJECT 40 UNITS SUBCUTANEOUSLY EVERY MORNING AND INJECT 30 UNITS SUBCUTANEOUSLY EVERY EVENING 15 mL 3 Active Continuous Glucose Java Scala Developer (FreeStyle Antione 2 [place]) deviceIndicatio ns:Type 2 diabetes mellitus with hyperglycemia, with long-term current use of insulin ([facility]) Scan sensor every 8 hours 1 each 024 Active Continuous Glucose Sensor (FreeStyle Antione 2 Sensor) miscIndications :Type 2 diabetes mellitus with hyperglycemia, with long-term current use of insulin ([facility]) Apply 1 sensor every 14 days 2 each 1 024 Active glucose blood (FreeStyle Precision Irwin Test) test stripIndication s:Type 2 diabetes mellitus with hyperglycemia, with long-term current use of insulin ([facility]) Use to test blood sugar 3 times [...] 15, 2024. 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 ---advised pt to get [...] Encounters Date Type Department Care Team Description 07/19/2024 Orders Only GENERIC EXTERNAL DATA DEPARTMENT Provider, Generic External Data 07/12/2024 1:00 PM EST Clinical Support [address] [address] 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, 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 (Primary Dx) 07/12/[address] [address] 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, 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 07/12/2024 Travel 07/12/[address] [address] 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, RN Recommend ECHO TECHNOLOGIST Tier 2 06/25/2024 Orders Only GENERIC EXTERNAL DATA DEPARTMENT Provider, Generic External Data 06/24/2024 9:00 AM EST Office Visit [facility] [address] [place] [phone] Gregor Sarmiento MD RLQ abdominal pain (Primary Dx) 06/24/2024 Orders Only GENERIC EXTERNAL DATA DEPARTMENT Provider, Generic External Data 06/24/2024 Travel 06/20/2024 Refill [facility] [address] [place] [address] Sindy Obrien MD Primary hypertension 06/14/2024 Telephone [facility] [address] [place] [phone] Sindy Obrien MD refill 06/13/2024 Refill [facility] [address] [place] [address] Sindy Obrien MD Chronic right shoulder pain 06/10/2024 Orders Only GENERIC EXTERNAL DATA DEPARTMENT Provider, Generic External Data 06/06/2024 1:45 PM EST Office Visit [facility] [address] [place] [phone] Sindy Obrien MD Vestibular disorder, unspecified laterality (Primary Dx); Type 2 diabetes mellitus with hyperglycemia, with long-term current use of insulin (CMS/HCC) 06/06/2024 Telephone [facility] [address] [place] [address] Sindy Obrien MD 06/06/2024 Telephone [facility] [address] [place] [address] Sindy Obrien MD 06/06/2024 Travel 06/03/2024 Telephone [facility] [address] [place] [phone] Dylon Sam MA Chart Prep 05/31/2024 Telephone [facility] [address] [place] [address] Sindy Obrien MD a1c 05/26/2024 Refill [facility] [address] [place] [address] Sindy Obrien MD Type 2 diabetes mellitus with hyperglycemia, with long-term current use of insulin (CMS/HCC) 05/23/2024 Refill [facility] [address] [place] [address] Sindy Obrien MD HTN (hypertension), benign 05/20/2024 Refill [facility] [address] [place] [address] Sindy Obrien MD HTN (hypertension), benign; Type 2 diabetes mellitus with hyperglycemia, with long-term current use of insulin (CMS/HCC) 05/19/2024 Orders Only GENERIC EXTERNAL DATA DEPARTMENT Provider, Generic External Data 05/18/2024 Refill [facility] [address] [place] [address] Sindy Obrien MD Chronic right shoulder pain (Primary Dx) 05/09/2024 1:00 PM EST Clinical Support [facility] [address] [place] [address] 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 RN Chronic right shoulder pain (Primary Dx) 05/09/2024 Telephone [facility] [address] [place], [place] [phone] 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 RN Abnormal UTOX, forgot Oxycodone 05/09/2024 Travel 05/04/2024 Refill [facility] [address] [place] [address] Sindy Obrien MD Type 2 diabetes mellitus with hyperglycemia, with long-term current use of insulin ([facility]) from Last 3 Months Immunizations Name Administration [...] Description 09/12/2024 1:00 PM EDT Clinical Support [facility] [address] [place] [address] 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, RN Health Maintenance Due Date [...] Influenza Vaccine (#1) 2024 Diabetes: Hemoglobin A1C 10/16/2024 025, 06/06/2024, 11/11/2023, Additional history exists SDOH Screening 11/12/2024 11/13/2023 [...] Component 11.8( 10:23 AM EST) No Caroline Neri PharmD Procedures Procedure Name Priority Date/Time Associated Diagnosis Comments CREATININE, SERUM Routine 07/19/2024 10: 23 AM EST UREA NITROGEN (BUN) Routine 07/19/2024 1 0:23 AM EST ELECTROLYTE PANEL Routine 07/19/2024 10: 23 AM EST HEMOGLOBIN A1C Routine 07/19/2024 10:23 AM EST PROTEIN CREATININE RATIO, URINE Routine 07/19/2024 10:21 AM EST POCT VELASQUEZ-14 URINE DRUG SCREEN Routine 07/12/2024 [...] hyperglycemia, with long-term current use of insulin ([facility]) POCT GLUCOSE Routine 06/06/2024 1:19 PM EST Type 2 diabetes mellitus with hyperglycemia, with long-term current use of insulin ([facility]) CREATININE, SERUM Routine 05/19/2024 8:4 8 AM [...] Recently Relevant to Health Maintenance Results * Creatinine, Serum (07/19/2024 10:23 AM EST) Only the most recent of3 resultswithin the time period is included. Creatinine, Serum 1.17 0.5 - 1.4 mg/dL [facility] Estimated Glomerular Filt Rate >60 [facility] Comment:Chronic Kidney Disea se: Estimated GFR < 60 mL/min/1.61o1Nuobmf Kidney Disease: Estimated GFR < 15 mL/min/1.73m2 07/19/2024 10:2 3 AM EST 07/19/2024 10:23 AM EST Generic External Data Provider LAB BLOOD ORDERAB LES Final Result Performing Organization Address City/[facility] Co de Phone Number [facility] [address] [place] [phone] * BUN (Blood Urea Nitrogen) (07/19/2024 10:23 AM EST) Only the most recent of3 resultswithin the time period is included. Urea Nitrogen (BUN) 14 9 - 16 mg/dL [facility] 07/19/2024 10:2 3 AM EST 07/19/2024 10:23 AM EST Generic External Data Provider LAB BLOOD ORDERAB LES Final Result Performing Organization Address [facility] de Phone Number [facility] [address] [place] [phone] * (ABNORMAL) Hemoglobin A1c (07/19/2024 10:23 AM EST) Hemoglobin A1c 11.8(H) <6.0 % [facility] Comment:Hemoglobin A1C Refer ence Range Adults: 4.8 - 6.0 % Non diabetic: < 6.0 % Goal: < 7.0 %Additional Action Suggested: > 8.0 %Note: Hemoglobin A1c results are invalid for patients with abnormal amounts of HbF. Blood transfusions may impact the HbA1c concentration in the patient sample. Estimated Average Glucose 292 mg/dL [facility] Comment:eAG = Estimated ave rage glucose which is %A1C expressed asaverage glucose, using the formula of the J3S-AauackdJxdzpob Glucose study (ADAG), Diabetes Care, Vol.31,#8,2007 07/19/2024 10:2 3 AM EST 07/19/2024 10:23 AM EST us Generic External Data Provider LAB BLOOD ORDERAB LES Final Result Performing Organization Address [facility]/ZIP Co de Phone Number [facility] [address] [place] [phone] * (ABNORMAL) Electrolyte Panel (07/19/2024 10:23 AM EST) Only the most recent of3 resultswithin the time period is included. Sodium 136 135 - 145 mmol/L [facility] Potassium 4.5 3.3 - 5.1 mmol/L [facility] Chloride 107 96 - 108 mmol/L [facility] Carbon Dioxide 24 22 - 29 mmol/L [facility] Anion Gap 10(L) 12 - 20 [facility] 07/19/2024 10:2 3 AM EST 07/19/2024 10:23 AM EST Generic External Data Provider LAB BLOOD ORDERAB LES Final Result Performing Organization Address [facility] Co de Phone Number [facility] [address] [place] [phone] * Protein Creatinine Ratio, Urine (07/19/2024 10:21 AM EST) Creatinine, Urine 66.50 mg/dL [facility] Protein, Total, Random Urine 12 <12 mg/dL [facility] Protein/Creatin ine Ratio, Ur 0.18 <0.2 [facility] Comment:The spot urine prote in:creatinine ratio may increase to 0.3during normal . 07/19/2024 10:2 1 AM EST 07/19/2024 11:12 AM EST us Generic External Data Provider LAB URINE ORDERAB LES Final Result Performing Organization Address City/[facility]/ZIP Co de Phone Number [facility] [address] [place] [phone] [phone] * POCT VELASQUEZ-14 Urine Drug Screen (07/12/2024 1:05 PM EST) Only the most recent of2 resultswithin the time period is included. Oxycodone Screen, Urine Positive Urine Urine specimen obtained by clean catch procedure / Unknown 07/12/2024 1:05 PM EST Narrative 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 RN - 07/12/2024 1:05 PM EST UTOX cup Lot#[id number] Exp. 03/02/26 Internal Pass Control us Sindy Carlson MD POINT OF CARE TEST EN TER/EDIT ORDERABLES Final Result * FL Guidance in OR (06/27/2024 3:50 PM EST) Anatomical Region Laterality Modality X-Ray Angiograph y 06/27/2024 3:50 PM EST Narrative 06/28/2024 8:44 AM EST ? [facility] ?[address] ?[place] [address] ? Fluoroscopy Report ? Signed ? Patient: Vernon Mccormack,Frantz ?MR#: [id number] ?? [id number] ? : 1950 ?Acct:[id number] ? Age/Sex: 74 / M ?ADM Date: 06/25/24 ? Loc: HO.S3 ?373-1 ? 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 Ordering Physician: Amrik Garrett MD ?? Date of Service: 06/27/24 ?? Procedure(s): FL guidance in OR ?? Accession Number(s): [id number] ? cc: Sindy Obrien MD; Amrik Garrett [...] DD/ 1550 ? TD/TT: 06/27/24 1610 ? Testing Consultant: ? Procedure Note Dontysonter, Image - 06/28/[address] [address] Fluoroscopy Report Signed Patient: Frantz FinkMR#: [id number] : 1950cct:[id number] Age/Sex: 74 / MADM Date: 06/25/24 Loc: HO.S3 373-[address]: Mimi Smith NP Ordering Physician: Amrik Garrett MD Date of Service: 06/27/24 Procedure(s): FL guidance in OR Accession Number(s): [id number] cc: Sindy Obrien MD; Amrik Garrett MD [...] 06/28/24 0842 DD/ 1550 TD/TT: 06/27/24 1610 Testing Consultant: [facility] External Provider IMG IR PROCEDURES Edited Result - Final * Slide Review (06/25/2024 3:25 PM EST) Slide Review VERIFIED [facility] 06/25/2024 3:25 PM EST 06/25/2024 3:28 PM EST us Generic External Data Provider LAB BLOOD ORDERAB LES Final Result Performing Organization Address [facility] Co de Phone Number [facility] [address] [place] [phone] * High Sensitivity Troponin I (06/25/2024 3:25 PM EST) Pathologist [facility] TROPONIN I HIGH SENSITIVITY 5.9 <3.5 - 35.0 ng/L [facility] Comment:The Mason high sens itivity Troponin-I results should beused in conjunction with other diagnostic information suchas ECG, clinical observations and information, and patientsymptoms to aid in the diagnosis of [place]. 06/25/2024 3:25 PM EST 06/25/2024 3:28 PM EST Generic External Data Provider LAB BLOOD ORDERAB LES Final Result Performing Organization Address [facility] Phone Number [facility] [address] [place] [phone] * (ABNORMAL) CBC auto differential (06/25/2024 3:25 PM EST) Only the most recent of3 resultswithin the time period is included. White Blood Count 17.4(H) 4.8 - 10.8 [...] - Final [facility] [address] [place] [phone] * Magnesium (06/25/2024 3:25 PM EST) Magnesium 2.1 1.6 - 2.6 mg/dL [facility] 06/25/2024 3:25 PM EST 06/25/2024 3:28 PM EST Generic External Data Provider LAB BLOOD ORDERAB LES Final Result Performing Organization Address City/[facility]/ZIP Co de Phone Number [facility] [address] [place] [phone] * Lipase (06/25/2024 3:25 PM EST) Only the most recent of2 resultswithin the time period is included. Lipase 14 8 - 78 U/L [facility] 06/25/2024 3:25 PM EST 06/25/2024 3:28 PM EST Generic External Data Provider LAB BLOOD ORDERAB LES Final Result Performing Organization Address [facility] de Phone Number [facility] [address] [place] [phone] * Hepatic Function Panel (06/25/2024 3:25 PM EST) Only the most recent of2 resultswithin the time period is included. Bilirubin, Total 0.3 0.0 - 1.0 mg/dL [...] ORDERAB LES Final Result Performing Organization Address City/[facility]/ZIP Co de Phone Number [facility] [address] [place] [address] [phone] * (ABNORMAL) Basic Metabolic Panel (06/25/2024 [...] Kidney Disea se: Estimated GFR < 60 mL/min/1.48c2Anhdts Kidney Disease: Estimated GFR < 15 mL/min/1.73m2 Glucose 268(H) 60 - 115 mg/dL [facility] Calcium 9.0 8.4 - 10.2 mg/dL [facility] 06/25/2024 3:25 PM EST 06/25/2024 3:28 PM EST us Generic External Data Provider LAB BLOOD ORDERAB LES Final Result Performing Organization Address City/[facility]/ZIP Co de Phone Number [facility] [address] [place] [address] [phone] * Lactic Acid (06/25/2024 3:24 PM EST) Only the most recent of2 resultswithin the time period is included. Lactic Acid 1.3 0.5 - 2.0 mmol/L [facility] 06/25/2024 3:24 PM EST 06/25/2024 3:28 PM EST us Generic External Data Provider LAB BLOOD ORDERAB LES Final Result [facility] [address] [place] [phone] [phone] * (ABNORMAL) Urinalysis, Complete, with Reflex to Culture (06/24/2024 3:39 PM EST) Color Urine Yellow [facility] Appearance Urine Cloudy [facility] PH 5.5 5.0 - 9.0 [facility] Glucose Urine UA >=1000(A) Negative mg/dL [facility] Urine Blood Large (3+)(A) Negative [facility] Specific [place] - Urine >=1.030(H) 1.005 - 1.025 [facility] Urine Protein 30 (1+)(A) Neg-Trace mg/dL [facility] Urine Ketones Negative Negative mg/dL [facility] Nitrite Urine Negative Negative [facility] Leukocyte Esterase Urine Trace(A) Negative [facility] RBC Urine >20(A) 0 - 2 /HPF [facility] Urine WBC 11-20(A) 0 - 5 /HPF [facility] Urine Squamous Epithelial Cell 0-2 0 - 2 /HPF [facility] Urine Bacteria None Seen None Seen [facility] Hyaline Casts, Urine 0-2 0 - 2 /LPF [facility] 06/24/2024 3:39 PM EST 06/24/2024 3:41 PM EST Narrative [facility] - 06/24/2024 4:00 PM EST [id number], Clean Catch Generic External Data Provider LAB URINE ORDERAB LES Final Result Performing Organization Address [facility] Co de Phone Number [facility] [address] [place] [phone] * Culture, Urine, Routine (06/24/2024 3:39 PM EST) Urine Urine specimen obtained by clean catch procedure / Unknown 06/24/2024 3:39 PM EST 06/24/2024 4:29 PM EST Comment:[facility] - 06/26/2024 11:47 AM EST Coag negative Staphylococcus Quant 50,000 to 100,000 cfu/mL Susc N/A Susceptibility not routinely performed on this isolate. Specimen Source: Urine clean catch Generic External Data Provider LAB MICROBIOLOGY - GENERAL ORDERABLES Final Result Performing Organization Address [facility] Co de Phone Number [facility] [address] [place] [phone] * Blood Culture (First) (06/24/2024 3:24 PM EST) Blood Venous blood specimen / Unknown 06/24/2024 3:24 PM EST 06/24/2024 3:29 PM EST Comment:[facility] - 06/29/2024 5:29 PM EST Blood Culture (First) No growth after 5 days. Specimen Source: Blood Generic External Data Provider LAB MICROBIOLOGY - GENERAL ORDERABLES Final Result Performing Organization Address [facility] Co de Phone Number [facility] [address] [place] [phone] * Blood Culture (Second) (06/24/2024 3:24 PM EST) Blood Venous blood specimen / Unknown 06/24/2024 3:24 PM EST 06/24/2024 3:29 PM EST Comment:[facility] - 06/26/2024 8:43 AM EST [...] Final Result [facility] [address] [place] [phone] [phone] * CT Abdomen Pelvis w/o Contrast (06/24/2024 1:21 PM EST) Anatomical Region Laterality Modality Body, Pelvis, Abdomen Computed T omography 06/24/2024 1:21 PM EST Narrative 06/24/2024 2:15 PM EST ? [facility] ?[address] ?[place] [address] ? CT Scan Report ? Signed ? Patient: Junior Colon,Frantz ?MR#: [id number] ?? [id number] ? : 1950 ?Acct:[id number] ? Age/Sex: 74 / M ?ADM Date: 06/24/24 ? Loc: HO.ED ? Attending Dr: ? Ordering Physician: Lissette Staley DO ?? Date of Service: 06/24/24 ?? Procedure(s): CT abdomen pelvis wo IV con ?? Accession Number(s): [id number] ? cc: Sindy Obrien MD; Lissette Staley DO ? Report Number: ?? [id number]: Total DLP = ??481.00 mGy-cm ?? EXAMINATION: [...] DD/ 1321 ? TD/TT: 06/24/24 1358 ? Testing Consultant: ? Procedure Note Derik, Image - 06/24/[address] [address] CT Scan Report Signed Patient: Tyson Fink#: [id number] : 1Acct:[id number] Age/Sex: 74 / MADM Date: 06/24/24 Loc: HO.ED Attending Dr: Ordering Physician: Lissette Staley DO Date of Service: 06/24/24 Procedure(s): CT abdomen pelvis wo IV con Accession Number(s): [id number] cc: Sindy Obrien MD; Lissette Staley DO Report Number: [id number]: Total DLP = 481.00 mGy-cm EXAMINATION: CT [...] Dusty Henley MD 06/24/2024 02:12 PM EST RP Dictated By: Dusty Henley MD Signed By: <Electronically signed by Dusty Henley MD in OV> 06/24/24 1412 DD/ 1321 TD/TT: 06/24/24 1358 Testing Consultant: [facility] External Provider IMG CT PROCEDURES Edited [...] Kidney Disea se: Estimated GFR < 60 mL/min/1.16f1Jgeyoo Kidney Disease: Estimated GFR < 15 mL/min/1.73m2 [...] Final Result [facility] [address] [place], [place] [phone] * (ABNORMAL) Vitamin B12 (Cobalamin) and [...] 11:29 AM EST 06/10/2024 1:07 PM EST Sindy Carlson MD LAB BLOOD ORDERABLES Final Result Performing Organization Address [facility]/ZIP Co de Phone Number [facility] [address] [place] [phone] * TSH with Reflex to Free T4 (06/10/2024 11:29 AM EST) TSH reflex Free T4 1.22 0.32 - 4.0 uIU/mL [facility] Blood Venous blood specimen / Unknown 06/10/2024 11:29 AM EST 06/10/2024 1:07 PM EST Sindy Carlson MD LAB BLOOD ORDERABLES Final Result Performing Organization Address [facility] Co de Phone Number [facility] [address] [place] [phone] * Hepatitis Panel, General (06/10/2024 11:29 [...] 11:29 AM EST 06/10/2024 1:07 PM EST Sindy Carlson MD LAB BLOOD ORDERABLES Final Result Performing Organization Address [facility] Co de Phone Number [facility] [address] [place] [phone] * Iron And Total Iron Binding [...] BLOOD ORDERABLES Final Result Performing Organization Address [facility] de Phone Number [facility] [address] [place] [phone] * RPR (Monitor) with Reflex to??Titer (06/10/2024 11:29 AM EST) RPR (Monitor) w/Refl Titer NON-REACTI VE NON-REACT CRISPIN [facility] Comment:THIS TEST WAS PERFOR MED AT:[facility] [place] [id number] SINHA MD Rapid Plasma Reagin Ab Titer TNP [facility] Blood Venous blood specimen / Unknown 06/10/2024 11:29 AM EST 06/10/2024 1:07 PM EST us Sindy Carlson MD LAB BLOOD ORDERABLES Final Result Performing Organization Address [facility] Co de Phone Number [facility] [facility] [address] [place] [phone] * Ferritin (06/10/2024 11:29 AM EST) Ferritin 89 20 - 250 ng/mL [facility] Blood Venous blood specimen / Unknown 06/10/2024 11:29 AM EST 06/10/2024 1:07 PM EST Result Claudia Carlson MD LAB BLOOD ORDERABLES Final Result [facility] [address] [place] [phone] * (ABNORMAL) POCT HGB A1C (06/06/2024 1:19 PM EST) Hemoglobin A1C 11.9(A) 4.0 - 6.0 % QC Media Lot # [id number] Lot# Expiration Date Blood 06/06/2024 1:19 PM EST Result Claudia Carlson MD POINT OF CARE TEST EN TER/EDIT ORDERABLES Final Result * (ABNORMAL) POCT Glucose (06/06/2024 1:19 PM EST) Glucose Blood, POC 299(A) 60 - 200 mg/dL QC Media Lot # [id number] Lot# Expiration Date 025 Blood Capillary blood specimen / Unknown 06/06/2024 1:19 PM EST Result Claudia Carlson MD POINT OF CARE TEST EN TER/EDIT ORDERABLES Final Result * Drug Monitoring, Methadone Metabolite, Screen, Urine (05/09/2024 1:00 PM EST) Methadone Screen, Urine Not Detected Not Detect ng/mL [facility] Comment:Methadone cut-off is 300 ng/mL.Positive results are unconfirmed and should not be used fornon-medical purposes. Urine (Urine, Random) 05/09/2024 1:00 PM EST 05/09/2024 5:59 PM EST Result Claudia Sheaman MD LAB URINE ORDERABLES Final Result Performing Organization Address City/[facility]/ZIP Co de Phone Number [facility] [address] [place] [phone] [phone] * Hm Colonoscopy (01/23/2023) Historical Provider [...] ?? LDL-C is now calculated using the Daniele ?? calculation, which is a validated novel method providing ?? better accuracy than the Friedewald equation in the ?? estimation of LDL-C. ?? Cory LYLES et al. LILY. 2013;310(19): 2078-7576 ?? (http://education.Urbful.com/faq/NHS890) Non-HDL Cholesterol 85 <130 mg/dL (calc) [facility] Comment: For patients with diabetes plus 1 major ASCVD risk ?? factor, treating to a non-HDL-C goal of <100 mg/dL ?? (LDL-C of <70 mg/dL) is considered a therapeutic ?? option. Triglycerides 129 <150 mg/dL [facility] 12/30/2021 9:07 AM EDT Sindy Carlson MD LAB BLOOD ORDERABLES Final Result [facility] [address] [place] [address], * (ABNORMAL) OCCULT BLOOD STOOL X3 (06/28/2019 12:00 AM EST) OCCULT BLOOD STOOL-1 NEG NEG [facility] OCCULT BLOOD STOOL-1 DATE 06/25/19 [facility] OCCULT BLOOD STOOL-2 POS(AA) NEG [facility] OCCULT BLOOD STOOL-2 DATE 06/26/19 [facility] OCCULT BLOOD STOOL-3 POS(AA) NEG [facility] OCCULT BLOOD STOOL-3 DATE 06/28/19 [facility] 06/28/2019 us Sindy Carlson MD HISTORICAL/NON ORDERA BLE LABS Final Result [facility] [address] from Last 3 Months or Most Recently Relevant to Health Maintenance Insurance [facility] Care Teams Pony Edger Relationship Specialty Start Date End Date Sindy Obrien MD [address] [place] [address] PCP - General Family Medicine 03/28/19
--- OUTSIDE RECORDS SUMMARY | 2024-08-02 17:42 | XMS_ITS | Encounter Summary ---
Author Organization [employer] Address [address] [facility] [address] [place] [address] Care Team Providers Care Asset Protection Detective Name Role Phone Sindy Obrien MD Primary Care Provide r Reason for Visit * Reason Comments Med Refill Encounter Details Date Type Department Care Team ([facility] st Contact Info) Description 12/15/2023 Refill [facility] [address] [place] [address] Sindy Obrien MD [address] [place] [address] Chronic right shoulder pain Social History Tobacco [...] Description 09/12/2024 1:00 PM EDT Clinical Support [facility] [address] [place] [address] 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, RN documented as of this [...] documented as of this encounter Care Teams Asset Protection Detective Relationship Specialty Start Date End Date Sindy Obrien MD [address] [place] [address] PCP - General Family Medicine 03/28/19 documented as of this encounter
--- OUTSIDE RECORDS SUMMARY | 2024-08-02 17:42 | XMS_ITS | Encounter Summary ---
Author Organization [employer] Address [address] [place] [address] Care Team Providers Care Hose Coupling Joiner Name Role Phone Sindy Obrien MD Primary Care Provide r Reason for Visit * Reason Onset Date Comments Recommend MOVING PICTURE OPERATOR Tier 2 07/12/2024 Encounter Details Date Type Department Care Team ([facility] st Contact Info) Description 07/12/2024 Telephone [facility] [address] [place] [address] 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, MANSI Recommend MOVING PICTURE OPERATOR Tier 2 Social History Tobacco Use Types [...] RN - 07/12/2024 7:47 AM EST What MOVING PICTURE OPERATOR Tier would you like this patient to be? I recommend Tier 2, please let me know if you agree or would rather patient be in another MOVING PICTURE OPERATOR Tier. Tier 1 = HIGH RISK, Monthly MOVING PICTURE OPERATOR visits Tier 2 = MODerate RISK, Q3 Month visits Tier 3 = LOW RISK = Q4-6 month visits documented in this encounter Plan of Treatment Upcoming Encounters Date Type Department Care Team (Late st Contact Info) Description 09/12/2024 1:00 PM EDT Clinical Support [facility] [address] [place] [address] 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, RN documented as of this encounter Goals Goal Patient Goal Type Associated Problems Recent Progress Patient-Stated? Author Hemoglobin A1c < 8 Result Component 11.8( 10:23 AM EST) No Caroline Neri, Nithya documented as of this encounter Visit Diagnoses Not on filedocumented in this encounter Additional Health Concerns Assessment Noted Time PHQ-9 Depression Total Score: 0 06/06/20 24 1:16 PM EST documented as of this encounter Care Teams Hose Coupling Joiner Relationship Specialty Start Date End Date Sindy Obrien MD [address] [place] [address] PCP - General Family Medicine 03/28/19 documented as of this encounter
--- OUTSIDE RECORDS SUMMARY | 2024-08-02 17:42 | XMS_ITS | Encounter Summary ---
Author Organization [employer] Address [address] [place] [address] Care Team Providers Care Production Support Engineer Name Role Phone Sindy Obrien MD Primary Care Provide r Encounter Details Date Type Department Care Team ([facility] st Contact Info) Description 09/03/2023 Orders Only [facility] [address] [place] [address] Sindy Obrien MD [address] [place] [address] Chronic right shoulder pain (Primary Dx) Social [...] Description 09/12/2024 1:00 PM EDT Clinical Support [facility] [address] [facility] [place] [address] 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 RN documented as of this [...] EDT Narrative 09/08/2023 11:17 AM EDT ? [facility] ?[address] ?[place] [address] ? CT Scan Report ? Signed ? Patient: Junior Colon,Frantz ?MR#: [id number] ?? [id number] ? : 1950 ?Acct:[id number] ? Age/Sex: 73 / M ?ADM Date: 04/01/24 ? Loc: HO.CT ? Attending Dr: Christa Ferrera MD ? Ordering Physician: Christa Ferrera MD ?? Date of Service: 09/07/23 ?? Procedure(s): CT chest w IV con ?? Accession Number(s): [id number] ? cc: Sindy Obrien MD; Christa Ferrera [...] DLP: ?? 392 mGy-cm ? FINDINGS: ? SOFTWARE ENGINEER KERNEL: Enlarged superior mediastinum. Clear lungs. Nonobstructive bowel [...] MD in OV> ?09/08/23 1113 ? DD/ ? TD/TT: ? Line Up Machine Operator: ? Procedure Note Derik, Aminata - 09/08/[address] [place] [address] CT Scan Report Signed Patient: Tyson Fink#: [id number] : 1Acct:[id number] Age/Sex: 73 / MADM Date: 09/07/23 Loc: HO.CT Attending Dr: Christa Ferrera MD Ordering Physician: Christa Ferrera MD Date of Service: 09/07/23 Procedure(s): CT chest w IV con Accession Number(s): [id number] cc: Sindy Obrien MD; Christa Ferrera MD [...] technique TOTAL EXAM DLP: 392 mGy-cm FINDINGS: SOFTWARE ENGINEER KERNEL: Enlarged superior mediastinum. Clear lungs. Nonobstructive bowel [...] in OV> 09/08/23 1113 DD/ 1227 TD/TT: Line Up Machine Operator: [facility] External Provider IMG CT PROCEDURES Final Result * Stress test with myocardial perfusion (09/04/2023 8:15 AM EDT) 09/04/2023 8:15 AM EDT Narrative [facility] - 09/04/2023 3:44 PM EDT ? [facility] ?[address] ?[place] [address] ?Nuclear Medicine Report ? Signed ? Patient: Junior Colon,Frantz ?MR#: [id number] ?? [id number] ? : 1950 ?Acct:[id number] ? Age/Sex: 73 / M ?ADM Date: 09/03/23 ? Loc: HO.CARD ? Attending Dr: Amanda SCOTT ? Ordering Physician: Amanda De La Paz ?? Date of Service: 09/03/23 ?? Procedure(s): NM cardiolite stress test ?? Accession Number(s): [id number] ? cc: Sindy Obrien MD; Amanda De [...] 1540 ? DD/ 0815 ? TD/TT: ? Line Up Machine Operator: ? Procedure Note [place], Image - 09/04/2023 [place] [phone] Nuclear Medicine Report Signed Patient: Frantz FinkMR#: [id number] : 1950cct:[id number] Age/Sex: 73 / MADM Date: 09/03/23 Loc: ALLIE Attending Dr: Amanda SCOTT Ordering Physician: Amanda De La Paz Date of Service: 09/03/23 Procedure(s): NM cardiolite stress test Accession Number(s): [id number] cc: Sindy Obrien MD; Amanda De La [...] in OV> 09/04/23 1540 DD/ 0815 TD/TT: Line Up Machine Operator: [facility] External Provider CV STRE SS PROCEDURES Edited Result - Final [facility] [address] [place] [phone] documented in this encounter Visit Diagnoses Diagnosis Chronic right shoulder pain- Primary Pain in joint, shoulder region documented in this encounter Additional Health Concerns Assessment Noted Time PHQ-9 Depression Total Score: 0 10/24/19 23 3:05 PM EDT documented as of this encounter Care Teams Production Support Engineer Relationship Specialty Start Date End Date Sindy Obrien MD [address] [place] [phone] PCP - General Family Medicine 03/28/19 documented as of this encounter
== END 2024-08-02 14:58 | disposition home or self-care (01) ==
PROVIDERS: PCP Internal Medicine; Visit Provider Urology
DX: N13.2 Hydronephrosis with renal and ureteral calculous obstruction (principal); N43.3 Hydrocele, unspecified; Z96.0 Presence of urogenital implants; Z13.9 Encounter for screening, unspecified
CPT/HCPCS: 52310

== ENCOUNTER → 2024-08-02 14:08 | Outpatient (BNVA) | payer OTHER, SELFPAY | PROVIDERS: PCP Internal Medicine; Visit Provider Urology | DX: N43.3 Hydrocele, unspecified (principal); N13.2 Hydronephrosis with renal and ureteral calculous obstruction; Z46.6 Encounter for fitting and adjustment of urinary device | CPT/HCPCS: 52310; 81003 ==

== ENCOUNTER 2024-09-01 09:57 | Outpatient (AMB) | payer OTHER, SELFPAY ==
--- NOTE | 2024-09-01 10:01 | A.OFFVIS_ITS ---
Vital Signs 09/01/24 10:02 09/01/24 10:34 Height 5 ft 3 in Weight 170 lb BMI 30.1 BP 87/56 L 101/68 Blood Pressure Location Lt brachial Lt brachial Position Sitting Sitting Pulse 71 Pulse Oximetry (%) 95 Oxygen Delivery Method Room Air Intake Visit Reasons: Follow up Gastric adenocarcinoma Intake Note: Patient yearly follow up for Gastric adenocarcinoma, and radiology results. Patient cc: abdominal pain on and off with some Gastritis. Denies any other GI issues for today visit. Box Inspector Required: Yes Box Inspector Name: [facility] interpeter Accompanied by: Self / Same As Patient Allergies No Known Allergies [No Known Allergies*] Allergy (Verified 09/01/24 10:00) Medication List - Last Reconciled 09/01/24 by Trenton Mueller MD amlodipine (Norvasc) 10 mg PO DAILY atorvastatin 20 mg PO BEDTIME calcium polycarbophil 1,250 mg PO DAILY carvedilol 12.5 mg PO BID cyanocobalamin (vitamin B-12) 1,000 mcg PO DAILY dapagliflozin propanediol (Farxiga) 10 mg PO DAILY ferrous sulfate 325 mg PO BID glipizide ER (Glucotrol XL) 10 mg PO DAILY insulin glargine (Lantus Solostar U-100 Insulin) 36 units subcut BID meclizine 25 mg PO TID PRN mirtazapine 15 mg PO BEDTIME olmesartan 5 mg PO DAILY oxycodone 5 mg PO Q8H PRN HPI HPI Follow up Gastric adenocarcinoma: Details: GI Clinic visit for this 74 year old Portuguese-speaking male followed in GI for Gastric adenoca (diagnosed in 07/[address] Ferrera in Oncology), 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 A cause for the patient's abdominal pain and nausea has not been found. 2. Incidental note made of an enlarged fatty liver, stable benignhepatic cysts, bilateral nonobstructing nephrolithiasis, prior partialgastrectomy with g astrojejunal anastomosis, mild BPH and degenerative changes in the spine. TODAY'S VISIT ?[facility] Wall Covering Installer, Radha Patient cc: abdominal pain on and off with some Gastritis. Doing so so Feeling regular Notes intermittent lower abd pain which comes and goes PAST VISIT: Complains of left sided abdominal pain which is constant. Takes pain medication which helps the pain briefly and then pain recurs. Denies fever or chills. Hx of renal stones - this pain is different. Has a BM twice a day - denies hard stools or straining. Left sided abd pain for the past month which comes and goes and can last for 30 or 45 minutes. Pain is 8/10 in inetnsity and feels like pressure. Can have pain with eating and while lying down. Denies recent constipation or diarrhea. Denies wt loss Appetite is normal Continues to have hoarseness EGD and biopsy results reviewed with the pt. 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 Denies cough , sore throat or SOB. Denies heartburn, dysphagia or abdominal pain Taking medications for constipation and has a BMs are variable. Denies constipation ? ? Complains of constipation related to oral iron. On some days he feels bloated and unable to eat any more after he takes a tablespoonful of rice. Denies heartburn or dysphagia. Takes stool softeners prn for constipation which are helpful? ? ? EGD results reviewed. ?Finished XRT and declined additional chemo. ?? ? I am doing good . ? Appetite is good and weight is stable between 142 & 149 lbs. ? ? ? Denies abdominal pain or constipation. ? At the last GI visit he reported his constipation has resolved and straining with stools has improved with taking fiber twice daily, patient states that he has normal bowel movements daily and had no issues at that isaías ?LABS IN [facility]: 11/22/19 H&H of 10.1 and 33.7, platelet 257, INR 1, normal LFTs, CEA 1.8 ? 06/28/19/ stool occult blood were positive. ? IMAGING STUDIES:09/07/[address] scan showed: No CT evidence of metastatic disease chest, abdomen and pelvis. Stable postoperative stomach, patient with history of gastric cancer. Redemonstration enlarged heterogeneous thyroid with possible right lower lobe nodule for which ultrasound was previously recommended but to my knowledge has not been performed. 3-4mm distal right ureteral calculus without associated proximal hydroureteronephrosis. ?ENDOSCOPIC STUDIES: 01/23/23 COLONOSCOPY SHOWED: Three small polyps removed Moderate diverticulosis seen in the sigmoid colon Moderate hemorrhoids on retroflexed exam. Plan: Repeat Colonoscopy interval based on path results - in 3 years if polyps are adenomatous and 10 years if polyps are hyperplastic (needs adult colonoscope for future colonoscopies and bisacodyl tablets daily starting 5 days prior to colonoscopy appointment). 10/24/22 EGD AND COLON SHOWED:Endoscopy Findings: STOMACH: Diffuse gastric erythema - biopsies were obtained from the gastric body.? Normal appearing sarah en Y anastomosis at 50 cms - biopsies were obtained from the anastomosis. Colonoscopy Findings: Procedure was discontinued due to poor prep Plan: Pt will be rescheduled for Colonoscopy after re-discussing the prep with the pt 09/30/21 EGD SHOWED: STOMACH: Diffuse gastric erythema - biopsies were obtained from the gastric body.? Normal appearing sarah en Y anastomosis at 50 cms - biopsies were obtained from the anastomosis. A 2 cms linear erosion in the gastric body along the greater curvature? - biopsied. BIOPSIES SHOWED: A.? Stomach, anastomosis, biopsy:? Mixed gastric and small intestinal mucosa with chronic active inflammation; no Helicobacter organisms identified. B.? Stomach, body greater curvature, biopsy:? Oxyntic mucosa with moderate chronic inactive inflammation; no Helicobacter organisms seen. C.? Stomach, body lesser curvature, biopsy:? Oxyntic mucosa with moderate chronic inactive inflammation; no Helicobacter organisms seen. D.? Stomach, erosion, biopsy:? Oxyntic mucosa with mild chronic, focally active, inflammation; no Helicobacter organisms seen. COMMENT: No malignancy is identified. 07/2019 EGD AND COLON SHOWED:? STOMACH: Gastritis and a 2 cms pre-pyloric ulcer? Colonoscopy Two medium-sized adenomatous polyps (one was 10 mm in size) were removed and large hemorrhoids were detected on retroflexed exam. ? Iron def anemia likely related to gastric ulcer - biopsies obtained to rule out recurrent GIST. ? Repeat Colonoscopy interval based on path results - in 3-5 years if polyps are adenomatous and 10 years if polyps are hyperplastic. ? BIOPSIES SHOWED: ? A. Small bowel, biopsy: Duodenal mucosa within normal limits. ? B. Stomach, ulcer, biopsy: Adenocarcinoma, moderate-poorly differentiated. ? C. Stomach, antrum, biopsy: Antral-type mucosa with moderate chronic inactive inflammation and intestinal metaplasia; no dysplasia seen; no Helicobacter organisms seen. ? D. Colon, transverse, polypectomy: Fragments of tubular adenoma; no high grade dysplasia or carcinoma seen. ? E. Colon, sigmoid, polypectomy: Fragments of tubular adenoma; no high grade dysplasia or carcinoma seen. ? F. Rectum, polypectomy: Hyperplastic mucosal polyp. ? COMMENT: HER2 immunostain is being performed on the gastric adenocarcinoma; results will be addended. [facility] Medical History (Updated 08/02/24 @ 14:57 by Amrik Garrett MD) Renal calculi Diabetes History of gastrectomy History of colon polyps Gastrointestinal stromal tumor (GIST) (~2014) Gastric adenocarcinoma Hydrocele Gastritis Vitamin B12 deficiency Hypercholesterolemia Hypertension Depression Surgical History H/O lithotripsy Hx of resection of stomach Hx of esophagogastroduodenoscopy Hx of endoscopy History of hernia repair History of back surgery (~2016) History of colonoscopy (~07/22/19) History of esophagogastroduodenoscopy (EGD) (07/22/19) Family History Father No problems noted. Mother History of cancer Social History Household Members: Spouse Housing: Apartment Are you a primary workforce investment act career manager to a significant other at home: No Do you presently have visiting nurse or other home services: No Alcohol intake: former Patient Tobacco Use Status: Former Tobacco user Tobacco use type: Cigarette Years Smoked: 35 Advance Directives Date on File: 06/27/24 service: No Current occupational status: retired Review of Systems Const Denies fever(s), Denies headache(s) and Denies weight loss Eyes Denies eye discharge and Denies irritation ENT Reports Normal hearing present, Denies dysphagia, Denies dizziness and Denies headache(s) Card Denies chest pain, Denies leg edema and Denies dyspnea on exertion Resp Denies cough, Denies dyspnea on exertion and Denies wheezing GI Denies abdominal pain, Reports hematochezia, Denies change in bowel habits, Denies dysphagia and Reports heartburn Denies dysuria Musc Denies back pain, Denies arthralgias and Reports other (arthritis) Skin/Breast Denies pruritus, Denies rash and Denies jaundice Neuro Reports Normal hearing present, Denies Abnormal speech present, Denies dizziness, Denies headache(s) and Denies seizure-like activity Psych Denies anxiety, Denies depression and Denies panic attacks Endo Denies cold intolerance, Denies flushing and Denies heat intolerance Darrius/Lymph Denies easy bleeding and Denies easy bruising Aller/Immun Denies wheezing Physical Exam Vital Signs: Last Vital Signs Pulse 71 09/01/24 10:02 BP 101/68 09/01/24 10:34 Pulse Ox 95 09/01/24 10:02 Oxygen Delivery Method Room Air 09/01/24 10:02 BMI result Body Mass Index 30.1 Const General: healthy appearing and no acute distress Nutritional Appearance: obese Orientation/consciousness: patient oriented x3 Limitations: language barrier HEENT Head: Yes normal to inspection Ears: hearing grossly normal bilaterally Eyes Sclerae: sclerae normal Pupils: Equal, round and reactive pupils present Neck Neck: Yes normal visual inspection Chest Chest palpation & inspection: normal inspection of the chest Resp Effort & Inspection: normal respiratory effort Auscultation: clear to auscultation bilaterally Cardio Palpation: normal PMI Rate: regular rate Rhythm: regular rhythm Heart sounds: S1 normal heart sound present, S2 normal heart sound present and no murmurs GI Palpation (GI): Soft to palpation, nontender and No hepatosplenomegaly present Auscultation: normal bowel sounds Rectal Exam - Male: Yes deferred Skin General skin exam: no rashes or lesions noted Neuro General: patient oriented x3, gait normal and moves all extremities Cranial nerves: Yes Equal, round and reactive pupils present and Yes Normal hearing present Speech: No Abnormal speech present Psych Appearance: grossly normal Mental Status: mental status grossly normal Assessment & Plan Assessment & Plan (1) Gastric adenocarcinoma: Code(s): C16.9 - Malignant neoplasm of stomach, unspecified Category: Medical (2) Vitamin B12 deficiency: Code(s): E53.8 - Deficiency of other specified B group vitamins Category: Medical (3) Gastric adenocarcinoma: Comment: Repeat EGD in 1 yr - due 09/2022 Code(s): C16.9 - Malignant neoplasm of stomach, unspecified Category: Medical (4) History of colon polyps: Comment: 07/28 Two medium sized adenomatous polyps were removed during colonoscopy. Repeat colonoscopy is advised in 3 years. 01/2023 Three polyps removed on FU colon - Fu advised in 3 yrs (due in 01/2026). Code(s): Z86.010 - Personal history of colon polyps Category: Medical (5) Iron deficiency anemia: Code(s): D50.9 - Iron deficiency anemia, unspecified Category: Medical Plan YM with diabetes, hypertension, hypercholesterolemia, vitamin B12 deficiency, right renal calculi, hydrocele, history of GIST (status post removal in 2014) hospitalized in the past with worsening anemia. 07/22/19 Upper endoscopy showed a 2 cm pre-pyloric ulcer with narrowing of pylorus - adenocarcinoma on biopsies. ?Staging workup included PET-CT performed 09/01/2019 showed no evidence of metastatic disease. Focal SUV max of 3.9 noted along proximal duodenum without underlying CT abnormality. On 09/14/2019 he underwent exploratory laparotomy with lysis of adhesions, distal gastrectomy with omentectomy, end-to-side Sarah-en-Y gastrojejunostomy. Pathology: Invasive adenocarcinoma, diffuse type, poorly differentiated with signet ring features. Tumor site in antrum/lesser curvature, size 1.6 x 1.1 x 0.5 cm, grade 3, tumor invades the muscularis propria. All margins negative for invasive carcinoma. Thirteen regional lymph nodes examined, 3 positive, lymphovascular invasion present, extensive. Perineural invasion present. Final pathological stage pT2 pN2. Stage II. HER2 IHC 2+, negative by FISH amplification ?Genetic screening for inherited cancer syndromes was negative for any germ line mutations. ? He started postoperative chemo/radiation (bolus and infusional 5 FU/leucovorin) therapy on 10/26/2019. Two cycles of chemotherapy initially followed by concurrent chemo RT and 4 additional cycles of chemotherapy planned. He did not tolerate chemotherapy with radiation and declined post radiation chemotherapy.? He has agreed to be monitored with physical examination, blood work and imaging as deemed necessary. 10/2021 EGD showed normal appearing sarah en Y anastomosis at 50 cms - biopsies obtained from the anastomosis were negative for malignancy and H pylori. Pt was advised to increase pantoprazole to 40 mg twice daily. 10/2022 EGD (FU of Gastric cancer) and same day colonoscopy (FU of colon polyps) were performed in results as noted above 11/27/22 PT complains of lower abdominal pain and advised to schedule an Abd-Pe lvic CT scan. 01/2023 Colonoscopy was performed and three polyps were removed 09/07/[address] scan showed: No CT evidence of metastatic disease chest, abdomen and pelvis. Stable postoperative stomach, patient with history of gastric cancer. Redemonstration enlarged heterogeneous thyroid with possible right lower lobe nodule for which ultrasound was previously recommended but to my knowledge has not been performed. Order placed for thyroid ultrasound Pt will be scheduled for an EGD for FU of Gastric Ca - next available Follow-up in 6 months Coding Level of Care Code Est Pt Level 3 (70170) Diagnoses Gastric adenocarcinoma C16.9 Vitamin B12 deficiency E53.8 History of colon polyps Z86.010 Iron deficiency anemia D50.9 Time Spent (min) 18
[2024-09-01 10:02] VITALS: BP 87/56; PULSE 71; O2SAT 95; BMI 30.1
[2024-09-01 10:34] VITALS: BP 101/68
--- OUTSIDE RECORDS SUMMARY | 2024-09-01 12:19 | XMS_ITS | Encounter Summary ---
Author Organization [employer] Address [address] [facility] [address] [place] [address] Care Team Providers Care Rail Car Repairman Name Role Phone Sindy Obrien MD Primary Care Provide r Reason for Visit * Reason Onset Date Comments FYI 11/18/2023 Encounter Details Date Type Department Care Team ([facility] Contact Info) Description 11/18/2023 Telephone [facility] [address] [place], [place] [phone] Sindy Obrien MD [address] [place], [place] [phone] FYI Social History Tobacco Use Types Packs/Day [...] Care Team (Late st Contact Info) Description 09/06/2024 1:15 PM EDT Office Visit [address] [address] Sindy Obrien MD [address] [place] [phone] 09/07/2024 10:00 AM EDT Medication Management [address] [phone] Edgard Dasilva, PharmD [address] [place] [address] 09/12/2024 1:00 PM EDT Clinical Support [address] [phone] 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, MANSI 11/02/2024 10:15 AM EDT Office Visit [address] [address] Sindy Obrien MD [address] [place] [address] documented as of this encounter Goals Goal Patient Goal Type Associated Problems Recent Progress Patient-Stated? Author Hemoglobin A1c < 8 Result Component 11.8( 5 10:23 AM EST) Caroline Rose, PharmD documented as of this encounter Visit Diagnoses Not on filedocumented in this encounter Additional Health Concerns Assessment Noted Time PHQ-9 Depression Total Score: 0 10/24/19 23 3:05 PM EDT documented as of this encounter Care Teams Rail Car Repairman Relationship Specialty Start Date End Date Sindy Obrien MD [address] [place] [address] PCP - General Family Medicine 03/28/19 documented as of this encounter
--- OUTSIDE RECORDS SUMMARY | 2024-09-01 12:19 | XMS_ITS | Encounter Summary ---
Author Organization [employer] Address [address] [facility] [address] [place] [address] Care Team Providers Care Sales Service Manager Name Role Phone Sindy Obrien MD Primary Care Provide r Reason for Visit * Reason Comments Med Refill Encounter Details Date Type Department Care Team ([facility] st Contact Info) Description 06/02/2023 Refill [facility] [address] [place] [address] Sindy Obrien MD [address] [place] [address] Vitamin D deficiency, unspecified Social History Tobacco [...] Description 09/06/2024 1:15 PM EDT Office Visit [address] [address] Sindy Obrien MD [address] [place] [address] 09/07/2024 10:00 AM EDT Medication Management [address] [address] Edgard Dasilva, PharmD [address] [place] [address] 09/12/2024 1:00 PM EDT Clinical Support [address] [address] 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 RN 11/02/2024 10:15 AM EDT Office Visit [address] [address] Sindy Obrien MD [address] [place] [address] documented as of this encounter Visit Diagnoses Diagnosis Vitamin D deficiency, unspecified documented in this encounter Additional Health Concerns Assessment Noted Time PHQ-9 Depression Total Score: 0 10/24/19 23 3:05 PM EDT documented as of this encounter Care Teams Sales Service Manager Relationship Specialty Start Date End Date Sindy Obrien MD [address] [place] [address] PCP - General Family Medicine 03/28/19 documented as of this encounter
--- OUTSIDE RECORDS SUMMARY | 2024-09-01 12:19 | XMS_ITS | Encounter Summary ---
Author Organization [employer] Address [address] [facility] 7t [place] [address] Care Team Providers Care Marketing Services Manager Name Role Phone Sindy Obrien MD Primary Care Provide r Reason for Visit * Reason Onset Date Comments Med Refill 08/12/2024 Encounter Details Date Type Department Care Team ([facility] st Contact Info) Description 08/12/2024 Refill [facility] [address] [place] [address] Sindy Obrien MD [address] [place] [address] Chronic right shoulder pain Social History Tobacco [...] encounter Miscellaneous Notes * Telephone Encounter - Asiya Khalil - 08/12/2024 12:36 PM EST TC from Sylvia requesting medication refill. Medications needing refill : oxyCODONE (Roxicodone) 5 MG immediate release tablet To be sent to: [facility] - [place], [place] - [address] [place] [address] documented in this encounter Plan of Treatment Upcoming Encounters Date Type Department Care Team ([facility] st Contact Info) Description 09/06/2024 1:15 PM EDT Office Visit [facility] [address] [place] [address] Sindy Obrien MD [address] [place] [address] 09/07/2024 10:00 AM EDT Medication Management [address] [address] Edgard Dasilva, AtiyaD [address] [place] [address] 09/12/2024 1:00 PM EDT Clinical Support [address] [address] 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 RN 11/02/2024 10:15 AM EDT Office Visit [facility] [address] [place] [address] Sindy Obrien MD [address] [place] [address] documented as of this encounter Goals Goal [...] documented as of this encounter Care Teams Marketing Services Manager Relationship Specialty Start Date End Date Sindy Obrien MD [address] [place] [phone] PCP - General Family Medicine 03/28/19 documented as of this encounter
--- OUTSIDE RECORDS SUMMARY | 2024-09-01 12:19 | XMS_ITS | Encounter Summary ---
Author Organization [employer] Address [address] [facility] [address] [place] [address] Care Team Providers Care Fuse Coiler Name Role Phone Sindy Obrien MD Primary Care Provide r Reason for Visit * Reason Onset Date Comments No Show 08/18/2024 Encounter Details Date Type Department Care Team ([facility] Contact Info) Description 08/18/2024 Telephone [facility] [address] [place] [address] Sindy Obrien MD [address] [place], [place] [phone] No Show Social History Tobacco Use Types Packs/Day Years [...] encounter Miscellaneous Notes * Telephone Encounter - Clover Allen RN - 08/18/2024 2:33 PM EDT TC placed to pt. Pt. Reports he had to go to [place] for [place] emergency, unsure when he will be back but would like to r/s to September. Pt. Agrees to r/s to 09/06/24 at 1:15pm * Telephone Encounter - Sully Dasilva - 08/18/2024 2:19 PM EDT Pt no showed to appt on 08/18/24 documented in this encounter Plan of Treatment Upcoming Encounters Date Type Department Care Team (Late st Contact Info) Description 09/06/2024 1:15 PM EDT Office Visit [facility] [address] [place] [phone] Sindy Obrien MD [address] [place] [address] 09/07/2024 10:00 AM EDT Medication Management [facility] [address] [place] [phone] Edgard Dasilva, PharmD [address] [place] [address] 09/12/2024 1:00 PM EDT Clinical Support [address] [address] 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 RN 11/02/2024 10:15 AM EDT Office Visit [address] [address] Sindy Obrien MD [address] [place] [phone] documented as of this encounter Goals Goal Patient Goal Type Associated Problems Recent Progress Patient-Stated? Author Hemoglobin A1c < 8 Result Component 11.8( 10:23 AM EST) Caroline Rose, PharmD documented as of this encounter Visit Diagnoses Not on filedocumented in this encounter Additional Health Concerns Assessment Noted Time PHQ-9 Depression Total Score: 0 06/06/20 24 1:16 PM EST documented as of this encounter Care Teams Fuse Coiler Relationship Specialty Start Date End Date Sindy Obrien MD [address] [place] [phone] PCP - General Family Medicine 03/28/19 documented as of this encounter
--- OUTSIDE RECORDS SUMMARY | 2024-09-01 12:19 | XMS_ITS | Encounter Summary ---
Author Organization [employer] Address [address] [facility] [address] [place] [address] Care Team Providers Care Bag Printer Name Role Phone Sindy Obrien MD Primary Care Provide r Reason for Visit * Reason Comments Med Refill Encounter Details Date Type Department Care Team ([facility] st Contact Info) Description 09/03/2023 Refill [facility] [address] [place] [address] Sindy Obrien MD [address] [place] [address] Chronic right shoulder pain Social History Tobacco [...] Description 09/06/2024 1:15 PM EDT Office Visit [address] [address] Sindy Obrien MD [address] [place] [phone] 09/07/2024 10:00 AM EDT Medication Management [address] [address] Edgard Dasilva, PharmD [address] [place] [phone] 09/12/2024 1:00 PM EDT Clinical Support [address] [address] 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 RN 11/02/2024 10:15 AM EDT Office Visit [address] [address] Sindy Obrien MD [address] [place] [phone] documented as of this encounter Visit Diagnoses Diagnosis Chronic right shoulder pain Pain in joint, shoulder region documented in this encounter Additional Health Concerns Assessment Noted Time PHQ-9 Depression Total Score: 0 10/24/19 23 3:05 PM EDT documented as of this encounter Care Teams Bag Printer Relationship Specialty Start Date End Date Sindy Obrien MD [address] [place] [address] PCP - General Family Medicine 03/28/19 documented as of this encounter
--- OUTSIDE RECORDS SUMMARY | 2024-09-01 12:19 | XMS_ITS | Encounter Summary ---
Author Organization [employer] Address [address] [facility] 7t [place] [address] Care Team Providers Care Aligner Barrel And Receiver Name Role Phone Sindy Obrien MD Primary Care Provide r Reason for Visit * Reason Onset Date Comments HDF 08/04/2024 Encounter Details Date Type Department Care Team ([facility] Contact Info) Description 08/04/2024 Telephone [facility] MED[facility]INE [address] [place] [address] Sindy Obrien MD [address] [place] [address] HDF Social History Tobacco Use Types Packs/Day Years [...] encounter Miscellaneous Notes * Telephone Encounter - Maricarmen Dee RN - 08/04/2024 4:38 PM EST PCP requested RN schedule HDF for patient. [place] [facility] bacte[place]. RN scheduled patient for 08/18/24 at 2pm. TC placed to patient [phone] via [employer] interpreters (Enda #[id number]) and spoke to Sylvia (on HIPAA) to inform of HDF appointment. verbalized understanding. documented in this encounter Plan of Treatment Upcoming Encounters Date Type Department Care Team (Late st Contact Info) Description 09/06/2024 1:15 PM EDT Office Visit [address] [address] Sindy Obrien MD [address] [place] [address] 09/07/2024 10:00 AM EDT Medication Management [address] [address] Edgard Dasilva, PharmD [address] [place] [address] 09/12/2024 1:00 PM EDT Clinical Support [address] [address] 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 RN 11/02/2024 10:15 AM EDT Office Visit [facility] MEDICINE [address] [place], [place] [phone] Sindy Obrien MD [address] [place] [address] documented as of this encounter Goals Goal Patient Goal Type Associated Problems Recent Progress Patient-Stated? Author Hemoglobin A1c < 8 Result Component 11.8( 10:23 AM EST) No Caroline Neri, AtiyaD documented as of this encounter Visit Diagnoses Not on filedocumented in this encounter Additional Health Concerns Assessment Noted Time PHQ-9 Depression Total Score: 0 06/06/20 24 1:16 PM EST documented as of this encounter Care Teams Aligner Barrel And Receiver Relationship Specialty Start Date End Date Sindy Obrien MD [address] [place] [phone] PCP - General Family Medicine 03/28/19 documented as of this encounter
--- OUTSIDE RECORDS SUMMARY | 2024-09-01 12:19 | XMS_ITS | Encounter Summary ---
Author Organization [employer] Address [address] 7t [place] [address] Care Team Providers Care Rock Singer Name Role Phone Sindy Obrien MD Primary Care Provide r Encounter Details Date Type Department Care Team ([facility] st Contact Info) Description 09/03/[address] [facility] MEDICINE [address] [place] [address] Sindy Obrien MD [address] [place] [address] Chronic right shoulder pain (Primary Dx) Social [...] Description 09/06/2024 1:15 PM EDT Office Visit [address] [address] Sindy Obrien MD [address] [place] [phone] 09/07/2024 10:00 AM EDT Medication Management [address] [address] Edgard Dasilva, PharmD [address] [place] [address] 09/12/2024 1:00 PM EDT Clinical Support [address] [address] 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 RN 11/02/2024 10:15 AM EDT Office Visit [address] [address] Sindy Obrien MD [address] [place] [address] [phone] documented as of this encounter Procedures Procedure [...] EDT Narrative 09/08/2023 11:17 AM EDT ? [facility] ?[address] ?[place] [address] ? CT Scan Report ? Signed ? Patient: Junior Colon,Frantz ?MR#: [id number] ?? [id number] ? : 1950 ?Acct:[id number] ? Age/Sex: 73 / M ?ADM Date: 09/07/23 ? Loc: HO.CT ? Attending Dr: Christa Ferrera MD ? Ordering Physician: Christa Ferrera MD ?? Date of Service: 09/07/23 ?? Procedure(s): CT chest w IV con ?? Accession Number(s): [id number] ? cc: Sindy Obrien MD; Christa Ferrera [...] DLP: ?? 392 mGy-cm ? FINDINGS: ? COUNCILMAN: Enlarged superior mediastinum. Clear lungs. Nonobstructive bowel [...] signed by Tiffany Lyons MD in OV> ?09/08/233 ? DD/ 1227 ? TD/TT: ? Electrologist: ? Procedure Note Donotmikeyter, Image - 09/08/[address] [place] [address] [address] Scan Report Signed Patient: Frantz FinkMR#: [id number] : 1950cct:[id number] Age/Sex: 73 / MADM Date: 09/07/23 Loc: HO.CT Attending Dr: Christa Ferrera MD Ordering Physician: Christa Ferrera MD Date of Service: 09/07/23 Procedure(s): CT chest w IV con Accession Number(s): [id number] cc: Sindy Obrien MD; Christa Ferrera MD [...] technique TOTAL EXAM DLP: 392 mGy-cm FINDINGS: COUNCILMAN: Enlarged superior mediastinum. Clear lungs. Nonobstructive bowel [...] MD Signed By: <Electronically signed by Tiffany Lyosn MD in OV> 09/08/23 1113 DD/ 1227 TD/TT: Electrologist: us [facility] External Provider IMG CT PROCEDURES Final Result * Stress test with myocardial perfusion (09/04/2023 8:15 AM EDT) 09/04/2023 8:15 AM EDT Narrative [facility] - 09/04/2023 3:44 PM EDT ? [facility] ?[address] ?[place] [address] ?Nuclear Medicine Report ? Signed ? Patient: Junior Colon,Frantz ?MR#: [id number] ?? [id number] ? : 1950 ?Acct:[id number] ? Age/Sex: 73 / M ?ADM Date: 09/03/23 ? Loc: HO.CARD ? Attending Dr: Amanda De La Paz NP-C ? Ordering Physician: Amanda De La Paz ?? Date of Service: 09/03/23 ?? Procedure(s): NM cardiolite stress test ?? Accession Number(s): [id number] ? cc: Sindy Obrien MD; Amanda De La Paz NP-C ? Myocardial perfusion study ? Indication: ?? [...] 1540 ? DD/ 0815 ? TD/TT: ? Electrologist: ? Procedure Note Derik, Image - 09/04/[address] [address] Nuclear Medicine Report Signed Patient: Frantz FinkMR#: [id number] : 1Acct:[id number] Age/Sex: 73 / MADM Date: 09/03/23 Loc: EMANUEL Attending Dr: Amanda SCOTT Ordering Physician: Amanda De La Paz Date of Service: 09/03/23 Procedure(s): NM cardiolite stress test Accession Number(s): [id number] cc: Sindy Obrien MD; Amanda De La [...] in OV> 09/04/23 1540 DD/ 0815 TD/TT: Electrologist: us [facility] External Provider CV STRE SS PROCEDURES Edited Result - Final [facility] [address] [place] [address] documented in this encounter Visit Diagnoses Diagnosis Chronic right shoulder pain- Primary Pain in joint, shoulder region documented in this encounter Additional Health Concerns Assessment Noted Time PHQ-9 Depression Total Score: 0 10/24/19 23 3:05 PM EDT documented as of this encounter Care Teams Rock Singer Relationship Specialty Start Date End Date Sindy Obrien MD [address] [place] [address] PCP - General Family Medicine 03/28/19 documented as of this encounter
--- OUTSIDE RECORDS SUMMARY | 2024-09-01 12:20 | XMS_ITS | Encounter Summary ---
Author Organization [facility] Address [address] [facility] 7t [place] [address] Care Team Providers Care Lead Clinical Research Coordinator Name Role Phone Sindy Obrien MD Primary Care Provide r Encounter Details Date Type Department Care Team (Late st Contact Info) Description 05/20/2022 Orders Only [facility] MEDICINE [address] [place] [address] Bhakti Paredes DO [address] [place], [place] [phone] Hypertension, unspecified type (Primary Dx) Social History [...] Description 09/06/2024 1:15 PM EDT Office Visit [facility] MED[facility]INE [address] [place] [address] Sindy Obrien MD [address] [place], [place] [phone] 09/07/2024 10:00 AM EDT Medication Management [address] [address] Edgard Dasilva, AtiyaD [address] [place] [address] 09/12/2024 1:00 PM EDT Clinical Support [address] [phone] 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 RN 11/02/2024 10:15 AM EDT Office Visit [address] [address] Sindy Obrien MD [address] [place] [address] [phone] documented as of this encounter Procedures Procedure Name Priority Date/Time Associated Diagnosis Comments BASIC METABOLIC PANEL Routine 07/08/2022 2:26 PM EST Hypertension, unspecified type documented in this encounter Results * (ABNORMAL) Basic Metabolic Panel (07/08/2022 2:26 PM EST) Glucose 444(H) 65 - 139 mg/dL [facility] Comment: Verified by repeat analysis. ? Non-fasting reference interval Urea Nitrogen (BUN) 14 7 - 25 mg/dL [facility] Creatinine, Serum 1.23 0.70 - 1.28 mg/dL [facility] [employer] eGFR 62 > OR = 60 mL/min/1 .73m2 [facility] Comment: The eGFR is based on the CKD-EPI 2020 equation. To calculate the new eGFR from a previous Creatinine or Cystatin C result, go to https://www.kidney.org/professionals/ kdoqi/gfr%5Fcalculator BUN/Creatinine Ratio NOT APPLICABLE 6 - 22 (calc) [facility] [employer] [facility] Sodium 132(L) 135 - 146 mmol/L [facility] [employer] Potassium 4.3 3.5 - 5.3 mmol/L [facility] Chloride 96(L) 98 - 110 mmol/L [facility] Carbon Dioxide 29 20 - 32 mmol/L [facility] Calcium 9.3 8.6 - 10.3 mg/dL [facility] Blood Venous blood specimen / Unknown 07/08/2022 2:26 PM EST 07/08/2022 2:27 PM EST Narrative [facility] - 07/09/2022 12:11 PM EST FASTING:NO FASTING: NO us Bhakti Paredes DO LAB BLOOD ORDERABLES Final R esult [facility] [address], [place] [address] [facility] [address] [facility], ([address]) [place] [address] documented in this encounter Visit Diagnoses Diagnosis Hypertension, unspecified type- Primary documented in this encounter Care Teams Lead Clinical Research Coordinator Relationship Specialty Start Date End Date Sindy Obrien MD [address] [place] [address] PCP - General Family Medicine 03/28/19 documented as of this encounter
--- OUTSIDE RECORDS SUMMARY | 2024-09-01 12:20 | XMS_ITS | Encounter Summary ---
Author Organization [employer] Address [address] [facility] [address] 7t [place] [address] Care Team Providers Care Lamination Inspector Name Role Phone Sindy Obrien MD Primary Care Provide r Reason for Visit * Reason Comments Med Refill Encounter Details Date Type Department Care Team ([facility] st Contact Info) Description 04/26/2023 Refill [facility] MEDICINE [address] [place] [address] Sindy Obrien MD [address] [place] [address] HTN (hypertension), benign Social History Tobacco Use [...] Description 09/06/2024 1:15 PM EDT Office Visit [address] [address] Sindy Obrien MD [address] [place] [address] 09/07/2024 10:00 AM EDT Medication Management [address] [address] Edgard Dasilva, PharmD [address] [place] [address] 09/12/2024 1:00 PM EDT Clinical Support [address] [address] 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 RN 11/02/2024 10:15 AM EDT Office Visit [address] [address] Sindy Obrien MD [address] [place] [address] [phone] documented as of this encounter Visit Diagnoses Diagnosis HTN (hypertension), benign Essential hypertension, benign documented in this encounter Additional Health Concerns Assessment Noted Time PHQ-9 Depression Total Score: 0 10/24/19 23 3:05 PM EDT documented as of this encounter Care Teams Lamination Inspector Relationship Specialty Start Date End Date Sindy Obrien MD [address] [place] [address] PCP - General Family Medicine 03/28/19 documented as of this encounter
--- OUTSIDE RECORDS SUMMARY | 2024-09-01 12:20 | XMS_ITS | Encounter Summary ---
Author Organization [employer] Address [address] 7[address] [place] [address] Care Team Providers Care Hurricane Tracker Name Role Phone Sindy Obrien MD Primary Care Provide r Reason for Visit * Reason Comments Med Refill Encounter Details Date Type Department Care Team ([facility] st Contact Info) Description 05/20/2024 Refill [facility] [address] [place], [place] [phone] Sindy Obrien MD [address] [place] [address] HTN (hypertension), benign; Type 2 diabetes mellitus with hyperglycemia, with long-term current use of insulin ([facility]) Social History Tobacco Use Types Packs/Day [...] Description 09/06/2024 1:15 PM EDT Office Visit [address] [address] Sindy Obrien MD [address] [place] [address] 09/07/2024 10:00 AM EDT Medication Management [address] [address] Edgard Dasilva, AtiyaD [address] [place] [address] 09/12/2024 1:00 PM EDT Clinical Support [address] [address] 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 RN 11/02/2024 10:15 AM EDT Office Visit [address] [address] Sindy Obrien MD [address] [place] [address] documented as of this encounter Goals Goal Patient Goal Type Associated Problems Recent Progress Patient-Stated? Author Hemoglobin A1c < 8 Result Component 11.8( 10:23 AM EST) Caroline Rose, PharmD documented as of this encounter Visit Diagnoses Diagnosis HTN (hypertension), benign Essential hypertension, benign Type 2 diabetes mellitus with hyperglycemia, with long-term current use of insulin ([facility]) documented in this encounter Additional Health Concerns Assessment Noted Time PHQ-9 Depression Total Score: 0 10/24/19 23 3:05 PM EDT documented as of this encounter Care Teams Hurricane Tracker Relationship Specialty Start Date End Date Sindy Obrien MD [address] [place] [address] PCP - General Family Medicine 03/28/19 documented as of this encounter
--- OUTSIDE RECORDS SUMMARY | 2024-09-01 12:20 | XMS_ITS | Encounter Summary ---
Author Organization [employer] Address [address] [facility] 7t [place] [address] Care Team Providers Care Retort Furnace Operator Name Role Phone Sindy Obrien MD Primary Care Provide r Reason for Visit * Reason Comments Med Refill Encounter Details Date Type Department Care Team ([facility] st Contact Info) Description 12/15/2023 Refill [facility] MEDICINE [address] [place] [address] Sindy Obrien MD [address] [place] [address] Chronic right shoulder pain Social History Tobacco [...] Description 09/06/2024 1:15 PM EDT Office Visit [address] [address] Sindy Obrien MD [address] [place] [address] 09/07/2024 10:00 AM EDT Medication Management [address] [address] Edgard Dasilva PharmD [address] [place] [address] 09/12/2024 1:00 PM EDT Clinical Support [address] [address] 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 RN 11/02/2024 10:15 AM EDT Office Visit [address] [address] Sindy Obrien MD [address] [place] [phone] documented as of this encounter Goals Goal [...] documented as of this encounter Care Teams Retort Furnace Operator Relationship Specialty Start Date End Date Sindy Obrien MD [address] [place] [address] PCP - General Family Medicine 03/28/19 documented as of this encounter
--- OUTSIDE RECORDS SUMMARY | 2024-09-01 12:20 | XMS_ITS | Clinical Summary ---
Author Organization [facility] Address [address] [place] [address] Care Team Providers Care Certified Professional Midwife Name Role Phone Sindy Obrien MD Primary [...] patient's age to complete this topic Insurance [place] [id number] ([id number]) [facility] ([id number]) Care Teams Certified Professional Midwife Relationship Specialty Start Date End Date Sindy Obrien MD [address] [place] [phone] PCP - General Internal Medicine 01/01/22
--- OUTSIDE RECORDS SUMMARY | 2024-09-01 12:20 | XMS_ITS | Encounter Summary ---
Author Organization [employer] [facility] Address [address] [facility] 7t [place] [address] Care Team Providers Care Vascular Radiologist Name Role Phone Sindy Obrien MD Primary Care Provide r Encounter Details Date Type Department Care Team (Late Contact Info) Description 02/13/2023 Orders Only [facility] MEDICINE [address] [place] [phone] Provider, MD Oren Social History Tobacco Use [...] Department Care Team (Late Contact Info) Description 09/06/2024 1:15 PM EDT Office Visit [facility] MED[facility] [address] [place] [address] [phone] Sindy Obrien MD [address] [place] [phone] 09/07/2024 10:00 AM EDT Medication Management [facility] [address] [place] [phone] Edgard Dasilva, PharmD [address] [place] [address] 09/12/2024 1:00 PM EDT Clinical Support [address] [address] 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, RN 11/02/2024 10:15 AM EDT Office Visit [address] [address] Sindy Obrien MD [address] [place] [phone] documented as of this encounter Procedures Procedure [...] documented as of this encounter Care Teams Vascular Radiologist Relationship Specialty Start Date End Date Sindy Obrien MD [address] [place] [address] [phone] PCP - General Family Medicine 03/28/19 documented as of this encounter
--- OUTSIDE RECORDS SUMMARY | 2024-09-01 12:20 | XMS_ITS | Clinical Summary ---
Author Organization [employer] Address [address] [place] [address] 7[address] [place] [address] Care Team Providers Care Die Presser Name Role Phone Sindy Obrien MD Primary Care Provide r Allergies No known active allergies Medications ferrous sulfate 325 (65 Fe) MG tablet Take by mouth every 12 (twelve) hours. Active Alcohol Swabs 70 % pads Use to test blood sugar three times daily Active TRUEplus Lancets 33G misc TEST BLOOD SUGAR THREE TIMES DAILY 100 each 11 023 Active FREESTYLE LITE test strip TEST BLOOD SUGAR THREE TIMES DAILY 100 strip 11 023 Active Continuous Blood Gluc Seasoning Sprayer (FreeStyle Antione 2 [place]) deviceIndicatio ns:Type 2 diabetes mellitus with hyperglycemia, with long-term current use of insulin ([facility]) Scan sensor every 8 hours 1 each 024 Active glipiZIDE XL (Glucotrol XL) 10 MG 24 hr tabletIndicatio ns:Type 2 diabetes mellitus with hyperglycemia, with long-term current use of insulin ([facility]) TAKE 1 TABLET BY MOUTH TWICE DAILY IN THE MORNING AND IN THE EVENING 60 tablet 11 024 Active Acetaminophen Extra Strength 500 MG tabletIndicatio ns:Chronic right shoulder pain TAKE 1 TABLET BY MOUTH EVERY 6 HOURS NEEDED MILD PAIN 30 tablet 024 Active methocarbamol (Robaxin) 500 MG tabletIndicatio ns:Chronic right shoulder pain TAKE 1 TABLET BY MOUTH EVERY DAY NEEDED FOR MUSCLE SPASMS 30 tablet 024 Active insulin pen needle (BD Pen Needle Candie U/F) 32G x 4 mm miscIndications :Type 2 diabetes mellitus with hyperglycemia, without long-term current use of insulin ([facility]) USE DIRECTED ONCE DAILY 100 each 12 Active atorvastatin (Lipitor) 20 MG tablet Take 1 tablet (20 mg) by mouth in the morning. 90 tablet 1 Active Continuous Glucose Sensor (FreeStyle Antione 2 Sensor) miscIndications :Type 2 diabetes mellitus with hyperglycemia, with long-term current use of insulin ([facility]) USE TO TEST BLOOD [...] in the morning. 90 tablet 1 Active carvedilol (Coreg) 12.5 MG tabletIndicatio ns:HTN (hypertension), benign TAKE 1 TABLET BY MOUTH TWICE DAILY IN THE MORNING AND IN THE EVENING WITH FOOD 60 tablet 3 Active dapagliflozin (Farxiga) 10 MGIndications:T ype 2 diabetes mellitus with hyperglycemia, with long-term current use of insulin ([facility]) Take 1 tablet (10 mg) by mouth Once per day. 30 tablet 11 024 2024 Active insulin glargine (Lantus SoloStar) 100 UNIT/ML penIndications: Type 2 diabetes mellitus with hyperglycemia, with long-term current use of insulin ([facility]) INJECT 40 UNITS SUBCUTANEOUSLY EVERY MORNING AND INJECT 30 UNITS SUBCUTANEOUSLY EVERY EVENING 15 mL 3 Active Continuous Glucose Seasoning Sprayer (FreeStyle Antione 2 [place]) deviceIndicatio ns:Type 2 diabetes mellitus with hyperglycemia, with long-term current use of insulin ([facility]) Scan sensor every 8 hours 1 each 024 Active Continuous Glucose Sensor (FreeStyle Antione 2 Sensor) miscIndications :Type 2 diabetes mellitus with hyperglycemia, with long-term current use of insulin ([facility]) Apply 1 sensor every 14 days 2 each 1 024 Active glucose blood (FreeStyle Precision Irwin Test) test stripIndication s:Type 2 diabetes mellitus with hyperglycemia, with long-term current use of insulin ([facility]) Use to test blood [...] severe pain for up to 28 days. 84 tablet 025 2024 Active tamsulosin (Flomax) 0.4 MG 24 hr capsule Take 1 capsule by mouth Once per day. 025 Active pantoprazole (ProtoNix) 40 MG EC tablet Take 1 tablet by mouth 2 times daily. 020 2024 Discontinued(M ed list cleanup (will not trigger notification to Pharmacy)) dulaglutide (Trulicity) 4.5 MG/0.5ML solution pen-injectorInd ications:Type 2 diabetes mellitus with hyperglycemia, with long-term current use of insulin ([facility]) Inject 4.5 mg under the skin 1 (one) time per week. 4 each 023 2024 Discontinued(M ed list cleanup (will not trigger notification to Pharmacy)) glucose blood (FreeStyle Precision Irwin Test) test stripIndication s:Type 2 diabetes mellitus with hyperglycemia, with long-term current use of insulin ([facility]) Use to test blood sugar 3 times daily 100 each 12 024 2024 hydroCHLOROthia zide (HYDRODiuril) 25 MG tabletIndicatio ns:HTN (hypertension), benign TAKE 1 TABLET BY MOUTH EVERY MORNING 90 tablet 024 2024 Discontinued(M ed list cleanup (will not trigger notification to Pharmacy)) oxyCODONE (Roxicodone) 5 MG immediate release tabletIndicatio ns:Chronic right shoulder pain Take 1 tablet (5 mg) by mouth every 8 (eight) hours if needed for severe pain for up to 28 days. Do not start before July 15, 2024. 84 tablet 025 2024 Discontinued(R eorder (will [...] start him on oxycodone 5mg Q 8hrs [employer]TE[employer] SUPERVISOR will be initiated Plan is that after [...] pt in case needs to return to [facility] Type 2 diabetes mellitus wit h hyperglycemia, [...] stomach 05/14/2022 Overview (06/12/2022): Patient seen by [facility] on 05/29/22: 10/2021 EGD showed normal [...] Coreg 12.5 mg bid. I spoke with [facility], and pt. 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 I spoke with [facility], and pt. will bring Medbox [...] Encounters Date Type Department Care Team Description 08/18/2024 Telephone [facility] [address] [place] [address] Sindy Obrien MD No Show 08/12/2024 Refill [facility] [address] [place] [address] Sindy Obrien MD Chronic right shoulder pain 08/04/2024 Telephone [facility] [address] [place] [address] Sindy Obrien MD HDF 07/19/2024 Orders Only GENERIC EXTERNAL DATA DEPARTMENT Provider, Generic External Data 07/12/2024 1:00 PM EST Clinical Support [address] [address] 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 RN Chronic right shoulder pain (Primary Dx) 07/12/2024 Refill [facility] [address] [place] [address] 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 RN Chronic right shoulder pain 07/12/2024 Travel 07/12/[address] [address] 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 RN Recommend [employer]TE[employer] SUPER[employer]OR Tier 2 06/25/2024 Orders Only GENERIC EXTERNAL DATA DEPARTMENT Provider, Generic External Data 06/24/2024 9:00 AM EST Office Visit [facility] [address] [place] [phone] Gregor Sarmietno MD RLQ abdominal pain (Primary Dx) 06/24/2024 Orders Only GENERIC EXTERNAL DATA DEPARTMENT Provider, Generic External Data 06/24/2024 Travel 06/20/2024 Refill [facility] [address] [place] [address] Sindy Obrien MD Primary hypertension 06/14/[address] [address] Sindy Obrien MD refill 06/13/2024 Refill [facility] [address], [place] [phone] Sindy Obrien MD Chronic right shoulder pain 06/10/2024 Orders Only GENERIC EXTERNAL DATA DEPARTMENT Provider, Generic External Data 06/06/2024 1:45 PM EST Office Visit [address] [address] Sindy Obrien MD Vestibular disorder, unspecified laterality (Primary Dx); Type 2 diabetes mellitus with hyperglycemia, with long-term current use of insulin ([facility]) 06/06/[address] [address] Sindy Obrien MD 06/06/2024 Telephone [facility] [address] [place] [address] Sindy Obrien MD 06/06/2024 Travel 06/03/2024 Telephone [facility] [address] [place] [address] Dylon Sam MA Chart Prep from Last 3 Months Immunizations Name Administration [...] Description 09/06/2024 1:15 PM EDT Office Visit [address] [address] Sindy Obrien MD [address] [place] [address] 09/07/2024 10:00 AM EDT Medication Management [address] [address] Edgard Dasilva, PharmD [address] [place] [phone] 09/12/2024 1:00 PM EDT Clinical Support [address] [address] 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, MANSI 11/02/2024 10:15 AM EDT Office Visit [address] [address] Sindy Obrien MD [address] [place] [phone] Health Maintenance Due Date Last Done Comments [...] hyperglycemia, with long-term current use of insulin ([facility]) POCT GLUCOSE Routine 06/06/2024 1:19 PM EST Type 2 diabetes mellitus with hyperglycemia, with long-term current use of insulin ([facility]) HM COLONOSCOPY Routine 01/23/2023 LIPID PANEL, STANDARD Routine 12/30/2021 9:07 AM EDT ZZZ HISTORICAL OCCULT BLOOD STOOL X3 Routine 06/28/2019 12:00 AM EST from Last 3 Months or Most Recently Relevant to Health Maintenance Results * Creatinine, Serum (07/19/2024 10:23 AM EST) Only the most recent of2 resultswithin the time period is included. Creatinine, Serum 1.17 0.5 - 1.4 mg/dL [facility] Estimated Glomerular Filt Rate >60 [facility] Comment:Chronic Kidney Disea se: Estimated GFR < 60 mL/min/1.84k4Waxedb Kidney Disease: Estimated GFR < 15 mL/min/1.73m2 07/19/2024 10:2 3 AM EST 07/19/2024 10:23 AM EST us Generic External Data Provider LAB BLOOD ORDERAB LES Final Result [facility] [address] [place] [phone] * BUN (Blood Urea Nitrogen) (07/19/2024 10:23 AM EST) Only the most recent of2 resultswithin the time period is included. Urea Nitrogen (BUN) 14 9 - 16 mg/dL [facility] 07/19/2024 10:2 3 AM EST 07/19/2024 10:23 AM EST Generic External Data Provider LAB BLOOD ORDERAB LES Final Result [facility] [address] [place] [phone] * (ABNORMAL) Hemoglobin A1c (07/19/2024 10:23 AM EST) Hemoglobin A1c 11.8(H) <6.0 % [facility] Comment:Hemoglobin A1C Refer ence Range Adults: 4.8 - 6.0 % Non diabetic: < 6.0 % Goal: < 7.0 %Additional Action Suggested: > 8.0 %Note: Hemoglobin A1c results are invalid for patients with abnormal amounts of HbF. Blood transfusions may impact the HbA1c concentration in the patient sample. Estimated Average Glucose 292 mg/dL [facility] Comment:eAG = Estimated ave rage glucose which is %A1C expressed asaverage glucose, using the formula of the A6X-[id number] Glucose study (ADAG), Diabetes Care, Vol.31,#8,Jan. 2007 07/19/2024 10:2 3 AM EST 07/19/2024 10:23 AM EST Generic External Data Provider LAB BLOOD ORDERAB LES Final Result Performing Organization Address City/[facility]/ZIP Co de Phone Number [facility] [address] [place] [phone] * (ABNORMAL) Electrolyte Panel (07/19/2024 10:23 AM EST) Only the most recent of2 resultswithin the time period is included. Sodium 136 135 - 145 mmol/L [facility] Potassium 4.5 3.3 - 5.1 mmol/L [facility] Chloride 107 96 - 108 mmol/L [facility] Carbon Dioxide 24 22 - 29 mmol/L [facility] Anion Gap 10(L) 12 - 20 [facility] 07/19/2024 10:2 3 AM EST 07/19/2024 10:23 AM EST Generic External Data Provider LAB BLOOD ORDERAB LES Final Result Performing Organization Address [facility]/ZIP Co de Phone Number [facility] [address] [place] [phone] * Protein Creatinine Ratio, Urine (07/19/2024 10:21 AM EST) Creatinine, Urine 66.50 mg/dL [facility] Protein, Total, Random Urine 12 <12 mg/dL [facility] Protein/Creatin ine Ratio, Ur 0.18 <0.2 [facility] Comment:The spot urine prote in:creatinine ratio may increase to 0.3during normal . 07/19/2024 10:2 1 AM EST 07/19/2024 11:12 AM EST Generic External Data Provider LAB URINE ORDERAB LES Final Result Performing Organization Address City/[facility]/ZIP Co de Phone Number [facility] [address] [place] [phone] * POCT VELASQUEZ-14 Urine Drug Screen (07/12/2024 1:05 PM EST) Oxycodone Screen, Urine Positive Urine Urine specimen obtained by clean catch procedure / Unknown 07/12/2024 1:05 PM EST Leah Woods RN - 07/12/2024 1:05 PM EST UTOX cup Lot#[id number] Exp. 03/02/26 Internal Pass Control us Sindy Carlson MD POINT OF CARE TEST EN TER/EDIT ORDERABLES Final Result * FL Guidance in OR (06/27/2024 3:50 PM EST) Anatomical Region Laterality Modality X-Ray Angiograph y 06/27/2024 3:50 PM EST Narrative 06/28/2024 8:44 AM EST ? [facility] ?[address] ?[place] [address] ? Fluoroscopy Report ? Signed ? Patient: Junior Colon,Frantz ?MR#: [id number] ?? [id number] ? : 1950 ?Acct:[id number] ? Age/Sex: 74 / M ?ADM Date: 06/25/24 ? Loc: HO.S3 ?373-1 ? Attending Dr: Mimi Smith COMMERCIAL COLLECTIONS SPECIALIST ? Ordering Physician: Amrik Garrett MD ?? Date of Service: 06/27/24 ?? Procedure(s): FL guidance in OR ?? Accession Number(s): [id number] ? cc: Sidny Obrien MD; Amrik Garrett MD ? EXAMINATION: [...] DD/ 1550 ? TD/TT: 06/27/24 1610 ? Treating And Pumping Supervisor: ? Procedure Note Derik, Aminata - 06/28/2024 [address] [place] [address] Fluoroscopy Report Signed Patient: Frantz FinkMR#: [id number] : 1950cct:[id number] Age/Sex: 74 / MADM Date: 06/25/24 Loc: HO.S3 373-[address]: Mimi Smith NP Ordering Physician: Amrik Garrett MD Date of Service: 06/27/24 Procedure(s): FL guidance in OR Accession Number(s): [id number] cc: Sindy Obrien MD; Amrik Garrett MD [...] 06/28/24 0842 DD/ 1550 TD/TT: 06/27/24 1610 Treating And Pumping Supervisor: [facility] External Provider IMG IR PROCEDURES Edited Result - Final * Slide Review (06/25/2024 3:25 PM EST) Slide Review VERIFIED [facility] 06/25/2024 3:25 PM EST 06/25/2024 3:28 PM EST Generic External Data Provider LAB BLOOD ORDERAB LES Final Result [facility] [address] [place] [phone] * High Sensitivity Troponin I (06/25/2024 3:25 PM EST) Pathologist [facility] TROPONIN I HIGH SENSITIVITY 5.9 <3.5 - 35.0 ng/L [facility] Comment:The [place] high sens itivity Troponin-I results should beused in conjunction with other diagnostic information suchas ECG, clinical observations and information, and patientsymptoms to aid in the diagnosis of NH. 06/25/2024 3:25 PM EST 06/25/2024 3:28 PM EST us Generic External Data Provider LAB BLOOD ORDERAB LES Final Result [facility] [address], [place] [phone] * (ABNORMAL) CBC auto differential (06/25/2024 3:25 PM EST) Only the most recent of3 resultswithin the time period is included. Pathologist [facility] White Blood Count 17.4(H) 4.8 - 10.8 X10*3/uL [facility] Red Blood Count 4.33(L) 4.60 - 5.80 X10*6/uL [facility] Hemoglobin 12.4(L) 14.0 - 18.0 g/dl [facility] Hematocrit 36.3(L) 42.0 - 52.0 % [facility] Mean Corpuscular Volume 83.8 80.0 - 98.0 fL [facility] Mean Corpuscular Hemoglobin 28.6 27.0 - 33.0 pg [facility] Mean Corpuscular HGB Conc 34.2 31.0 - 36.0 g/dl [facility] Red Cell Distribution Width 16.4(H) 11.0 - 16.0 % [facility] Platelet Count 332 160 - 400 X10*3/uL [facility] Mean Platelet Volume 9.6 9.4 - 12.4 fL [facility] Neutrophils Percent Auto 64.8 45 - 73 % [facility] Imm Gran Pct Auto 0.9(H) 0.0 - 0.4 % [facility] Lymphocytes Percent Auto 23.2 20 - 40 % [facility] Monocytes Percent Auto 10.4 2 - 11 % [facility] Eosinophils Percent Auto 0.5 0 - 4 % [facility] Basophils Percent Auto 0.2 0 - 2 % [facility] NRBC Pct Auto 0.0 0.0 - 0.2 /100WBC [facility] Neutrophils Absolute Auto 11.3(H) 2.0 - 8.3 x10*3/uL [facility] Imm Gran Abs Auto 0.16(H) 0.00 - 0.03 X10*3/uL [facility] Lymphocytes Absolute Auto 4.0 1.2 - 4.9 X10*3/uL [facility] Monocytes Absolute Auto 1.8(H) 0.1 - 1.2 X10*3/uL [facility] Eosinophils Absolute Auto 0.1 0.0 - 0.4 X10*3/uL [facility] Basophils Absolute Auto 0.0 0.0 - 0.2 X10*3/uL [facility] NRBC Abs Auto 0.000 0.0 - 0.012 X10*3/uL [facility] 06/25/2024 3:25 PM EST 06/25/2024 3:28 PM EST us Generic External Data Provider LAB BLOOD ORDERAB LES Edited Result - Final Performing Organization Address City/[facility]/ZIP Co de Phone Number [facility] [address] [place] [phone] * Magnesium (06/25/2024 3:25 PM EST) Magnesium 2.1 1.6 - 2.6 mg/dL [facility] 06/25/2024 3:25 PM EST 06/25/2024 3:28 PM EST Generic External Data Provider LAB BLOOD ORDERAB LES Final Result Performing Organization Address [facility]/ZIP Co de Phone Number [facility] [address] [place] [phone] * Lipase (06/25/2024 3:25 PM EST) Only the most recent of2 resultswithin the time period is included. Lipase 14 8 - 78 U/L [facility] 06/25/2024 3:25 PM EST 06/25/2024 3:28 PM EST Generic External Data Provider LAB BLOOD ORDERAB LES Final Result Performing Organization Address City/[facility]/ZIP Co de Phone Number [facility] [address] [place] [phone] * Hepatic Function Panel (06/25/2024 3:25 PM EST) Only the most recent of2 resultswithin the time period is included. Bilirubin, Total 0.3 0.0 - 1.0 mg/dL [facility] Bilirubin, Direct 0.1 0.0 - 0.5 mg/dL [facility] Aspartate Amino Transferase 21 5 - 37 U/L [facility] Alanine Aminotransferase 20 0 - 40 U/L [facility] Total Protein 7.3 6.5 - 8.0 g/dL [facility] Albumin Level 3.7 3.5 - 5.0 g/dL [facility] Alkaline Phosphatase 59 39 - 117 U/L [facility] 06/25/2024 3:25 PM EST 06/25/2024 3:28 PM EST [employer] External Data Provider LAB BLOOD ORDERAB LES Final Result Performing Organization Address City/[facility]/ZIP Co de Phone Number [facility] [address] [place] [phone] * (ABNORMAL) Basic Metabolic Panel (06/25/2024 3:25 PM EST) Sodium 136 135 - 145 mmol/L [facility] Potassium 4.2 3.3 - 5.1 mmol/L [facility] Chloride 104 96 - 108 mmol/L [facility] Carbon Dioxide 22 22 - 29 mmol/L [facility] Anion Gap 14 12 - 20 [facility] Urea Nitrogen (BUN) 28(H) 9 - 16 mg/dL [facility] Creatinine, Serum 1.32 0.5 - 1.4 mg/dL [facility] Creatinine Clr Calc Pharmacy 44.1 [facility] Comment:eGFR (calculated fro m the MDRD study equation) and eCrCl(calculated from the Cockcroft-Gault equation) are based ondifferent parameters and may not yield comparable results.If eCrCl result is absurd, please check patient'sheight/weight. Estimated Glomerular Filt Rate 53 [facility] Comment:Chronic Kidney Disea se: Estimated GFR < 60 mL/min/1.30l5Qqcqou Kidney Disease: Estimated GFR < 15 mL/min/1.73m2 Glucose 268(H) 60 - 115 mg/dL [facility] Calcium 9.0 8.4 - 10.2 mg/dL [facility] 06/25/2024 3:25 PM EST 06/25/2024 3:28 PM EST us Generic External Data Provider LAB BLOOD ORDERAB LES Final Result Performing Organization Address [facility] Co de Phone Number [facility] [address] [place] [phone] * Lactic Acid (06/25/2024 3:24 PM EST) Only the most recent of2 resultswithin the time period is included. Lactic Acid 1.3 0.5 - 2.0 mmol/L [facility] 06/25/2024 3:24 PM EST 06/25/2024 3:28 PM EST Generic External Data Provider LAB BLOOD ORDERAB LES Final Result Performing Organization Address [facility]/ZIP Co de Phone Number [facility] [address] [place] [phone] * (ABNORMAL) Urinalysis, Complete, with Reflex to Culture (06/24/2024 3:39 PM EST) Color Urine Yellow [facility] Appearance Urine Cloudy [facility] PH 5.5 5.0 - 9.0 [facility] Glucose Urine UA >=1000(A) Negative mg/dL [facility] Urine Blood Large (3+)(A) Negative [facility] Specific [place] - Urine >=1.030(H) 1.005 - 1.025 [facility] Urine Protein 30 (1+)(A) Neg-Trace mg/dL [facility] Urine Ketones Negative Negative mg/dL [facility] Nitrite Urine Negative Negative [facility] Leukocyte Esterase Urine Trace(A) Negative [facility] RBC Urine >20(A) 0 - 2 /HPF [facility] Urine WBC 11-20(A) 0 - 5 /HPF [facility] Urine Squamous Epithelial Cell 0-2 0 - 2 /HPF [facility] Urine Bacteria None Seen None Seen [facility] Hyaline Casts, Urine 0-2 0 - 2 /LPF [facility] 06/24/2024 3:39 PM EST 06/24/2024 3:41 PM EST Narrative [facility] - 06/24/2024 4:00 PM EST [id number], Clean Catch us Generic External Data Provider LAB URINE ORDERAB LES Final Result [facility] [address] [place] [phone] * Culture, Urine, Routine (06/24/2024 3:39 PM EST) Urine Urine specimen obtained by clean catch procedure / Unknown 06/24/2024 3:39 PM EST 06/24/2024 4:29 PM EST Comment:[facility] - 06/26/2024 11:47 AM EST Coag negative Staphylococcus Quant 50,000 to 100,000 cfu/mL Susc N/A Susceptibility not routinely performed on this isolate. Specimen Source: Urine clean catch Generic External Data Provider LAB MICROBIOLOGY - GENERAL ORDERABLES Final Result Performing Organization Address City/[facility]/ZIP Co de Phone Number [facility] [address] [place] [phone] * Blood Culture (First) (06/24/2024 3:24 PM EST) Blood Venous blood specimen / Unknown 06/24/2024 3:24 PM EST 06/24/2024 3:29 PM EST Comment:[facility] - 06/29/2024 5:29 PM EST Blood Culture (First) No growth after 5 days. Specimen Source: Blood Generic External Data Provider LAB MICROBIOLOGY - GENERAL ORDERABLES Final Result Performing Organization Address [facility] de Phone Number [facility] [address] [place] [phone] * Blood Culture (Second) (06/24/2024 3:24 PM EST) Blood Venous blood specimen / Unknown 06/24/2024 3:24 PM EST 06/24/2024 3:29 PM EST Comment:Blood [facility] - 06/26/2024 8:43 AM EST Blood [...] - GENERAL ORDERABLES Final Result [facility] [address] [facility] [place] [address] [phone] * CT Abdomen Pelvis w/o Contrast (06/24/2024 1:21 PM EST) Anatomical Region Laterality Modality Body, Pelvis, Abdomen Computed T omography 06/24/2024 1:21 PM EST Narrative 06/24/2024 2:15 PM EST ? [facility] ?[address] ?[place] [address] ? CT Scan Report ? Signed ? Patient: Junior Colon,Frantz ?MR#: [id number] ?? [id number] ? : 1950 ?Acct:[id number] ? Age/Sex: 74 / M ?ADM Date: 06/24/24 ? Loc: HO.ED ? Attending Dr: ? Ordering Physician: Lissette Staley DO ?? Date of Service: 06/24/24 ?? Procedure(s): CT abdomen pelvis wo IV con ?? Accession Number(s): [id number] ? cc: Sindy Obrien MD; Lissette Staley DO ? Report Number: ?? [id number]: Total DLP = ??481.00 mGy-cm ?? EXAMINATION: [...] DD/ 1321 ? TD/TT: 06/24/24 1358 ? Treating And Pumping Supervisor: ? Procedure Note Derik, Image - 06/24/[address] [place] [address] [address] Scan Report Signed Patient: Frantz FinkMR#: [id number] : 1950cct:[id number] Age/Sex: 74 / MADM Date: 06/24/24 Loc: HO.ED Attending Dr: Ordering Physician: Lissette Staley DO Date of Service: 06/24/24 Procedure(s): CT abdomen pelvis wo IV con Accession Number(s): [id number] cc: Sindy Obrien MD; Lissette Staley DO Report Number: [id number]: Total DLP = 481.00 mGy-cm EXAMINATION: CT [...] 06/24/24 1412 DD/ 1321 TD/TT: 06/24/24 1358 Treating And Pumping Supervisor: [facility] External Provider IMG CT PROCEDURES Edited Result - Final * (ABNORMAL) Comprehensive Metabolic Panel (06/24/2024 10:08 AM EST) Sodium 137 135 - 145 mmol/L [facility] Potassium 4.8 3.3 - 5.1 mmol/L [facility] Chloride 105 96 - 108 mmol/L [facility] Carbon Dioxide 26 22 - 29 mmol/L [facility] Anion Gap 11(L) 12 - 20 [facility] Urea Nitrogen (BUN) 25(H) 9 - 16 mg/dL [facility] Creatinine, Serum 1.42(H) 0.5 - 1.4 mg/dL [facility] Creatinine Clr Calc Pharmacy 42.2 [facility] Comment:eGFR (calculated fro m the MDRD study equation) and eCrCl(calculated from the Cockcroft-Gault equation) are based ondifferent parameters and may not yield comparable results.If eCrCl result is absurd, please check patient'sheight/weight. Estimated Glomerular Filt Rate 49 [facility] Comment:Chronic Kidney Disea se: Estimated GFR < 60 mL/min/1.87x0Qpxqad Kidney Disease: Estimated GFR < 15 mL/min/1.73m2 Glucose 314(H) 60 - 115 mg/dL [facility] Calcium 9.4 8.4 - 10.2 mg/dL [facility] Bilirubin, Total 0.4 0.0 - 1.0 mg/dL [facility] Aspartate Amino Transferase 19 5 - 37 U/L [facility] Alanine Aminotransferase 24 0 - 40 U/L [facility] Total Protein 8.0 6.5 - 8.0 g/dL [facility] Albumin Level 4.0 3.5 - 5.0 g/dL [facility] Alkaline Phosphatase 66 39 - 117 U/L [facility] 06/24/2024 10:0 8 AM EST 06/24/2024 10:15 AM EST us Generic External Data Provider LAB BLOOD ORDERAB LES Final Result Performing Organization Address [facility]/ZIP Co de Phone Number [facility] [address] [place] [phone] * (ABNORMAL) Vitamin B12 (Cobalamin) and Folate Panel, Serum (06/10/2024 11:29 AM EST) Vitamin B12 1,359(H) 200 - 900 pg/mL [facility] Comment:NORMAL 200-900 PG/ML INDETERMINATE 160-199 PG/ML DEFICIENT < 160 PG/ML Folate 17.5 > or = 4.0 ng/mL [facility] Comment:Reference Values:> o r = 4.0 [...] BLOOD ORDERABLES Final Result Performing Organization Address [facility] Co de Phone Number [facility] [address] [place] [phone] * TSH with Reflex to Free T4 (06/10/2024 11:29 AM EST) TSH reflex Free T4 1.22 0.32 - 4.0 uIU/mL [facility] Blood Venous blood specimen / Unknown 06/10/2024 11:29 AM EST 06/10/2024 1:07 PM EST Sindy Carlson MD LAB BLOOD ORDERABLES Final Result Performing Organization Address [facility] de Phone Number [facility] [address] [place] [address] [phone] * Hepatitis Panel, General (06/10/2024 11:29 AM EST) Pathologist [facility] Hepatitis A IgM Nonreactive Nonreactive [facility] Comment:IgM antibodies to MCCARTHY V not detected; does not exclude earlyacute or recovered HAV infection. ~Hepatitis B Surface Antibody NONREACTIVE Nonreactive [facility] Comment:Nonreactive: < 8.00 mIU/mL Hepatitis B Core Antibody Nonreactive Nonreactive [facility] Hepatitis C Antibody Nonreactive Nonreactive [facility] Comment:Antibodies to HCV no t detected; does not exclude early acuteHCV infection. Hepatitis B Surface Ag Negative Negative [facility] Blood Venous blood specimen / Unknown 06/10/2024 11:29 AM EST 06/10/2024 1:07 PM EST Sindy Carlson MD LAB BLOOD ORDERABLES Final Result Performing Organization Address [facility] de Phone Number [facility] [address] [place] [phone] * Iron And Total Iron Binding Capacity (06/10/2024 11:29 AM EST) Pathologist [facility] Iron 65 45 - 160 mcg/dL [facility] Total Iron Binding Capacity 283 228 - 428 mcg/dL [facility] Percent Iron Saturation 23 15 - 50 % [facility] Unsaturated Iron Binding 218 ug/dL [facility] Blood Venous blood specimen / Unknown 06/10/2024 11:29 AM EST 06/10/2024 1:07 PM EST Sindy Carlson MD LAB BLOOD ORDERABLES Final Result Performing Organization Address [facility] de Phone Number [facility] [address] [place] [phone] * RPR (Monitor) with Reflex to??Titer (06/10/2024 11:29 AM EST) Pathologist [facility] RPR (Monitor) w/Refl Titer NON-REACTI VE NON-REACT CRISPIN [facility] Comment:THIS TEST WAS PERFOR MED AT:[facility] [place] [phone] SINHA MD Rapid Plasma Reagin Ab Titer TNP [facility] Blood Venous blood specimen / Unknown 06/10/2024 11:29 AM EST 06/10/2024 1:07 PM EST us Sindy Carlson MD LAB BLOOD ORDERABLES Final Result Performing Organization Address [facility] Co de Phone Number [facility] [address] [place] [address] [phone] * Ferritin (06/10/2024 11:29 AM EST) Pathologist [facility] Ferritin 89 20 - 250 ng/mL [facility] Blood Venous blood specimen / Unknown 06/10/2024 11:29 AM EST 06/10/2024 1:07 PM EST Sindy Carlson MD LAB BLOOD ORDERABLES Final Result Performing Organization Address [facility] de Phone Number [facility] [address] [place] [address] [phone] * (ABNORMAL) POCT HGB A1C (06/06/2024 1:19 PM EST) Pathologist [facility] Hemoglobin A1C 11.9(A) 4.0 - 6.0 % [...] TEST EN TER/EDIT ORDERABLES Final Result * Hm Colonoscopy (01/23/2023) [facility] Provider HEALTH MAINTENANCE Final Result * (ABNORMAL) [...] ?? Cory LYLES et al. LILY. 2013;310(19): 2237-3148 ?? (http://education.Apptio/faq/AFF202) Non-HDL Cholesterol 85 <130 mg/dL (calc) [facility] Comment: For patients with diabetes plus 1 major ASCVD risk ?? factor, treating to a non-HDL-C goal of <100 mg/dL ?? (LDL-C of <70 mg/dL) is considered a therapeutic ?? option. Triglycerides 129 <150 mg/dL [facility] 12/30/2021 9:07 AM EDT Sindy Carlson MD LAB BLOOD ORDERABLES Final Result Performing Organization Address [facility] Co de Phone Number [facility] [address] * (ABNORMAL) OCCULT BLOOD STOOL X3 (06/28/2019 12:00 AM EST) OCCULT BLOOD STOOL-1 NEG NEG [facility] OCCULT BLOOD STOOL-1 DATE 06/25/19 [facility] OCCULT BLOOD STOOL-2 POS(AA) NEG [facility] OCCULT BLOOD STOOL-2 DATE 06/26/19 [facility] OCCULT BLOOD STOOL-3 POS(AA) NEG [facility] OCCULT BLOOD STOOL-3 DATE 06/28/19 [facility] 06/28/2019 us Sindy Carlson MD HISTORICAL/NON ORDERA BLE LABS Final Result Performing Organization Address [facility] de Phone Number [facility] [address] from Last 3 Months or Most Recently Relevant to Health Maintenance Insurance [facility] Care Teams Die Presser Relationship Specialty Start Date End Date Sindy Obrien MD [address] [place] [address] PCP - General Family Medicine 03/28/19
--- OUTSIDE RECORDS SUMMARY | 2024-09-01 12:20 | XMS_ITS | Encounter Summary ---
Author Organization [facility] Address [address] [place] [address] Care Team Providers Care Home Economist Consumer Service Name Role Phone Sindy Obrien MD Primary Care Provide r Reason for Visit * Reason Comments Med Refill Encounter Details Date Type Department Care Team (Late Contact Info) Description 10/29/2022 Refill [facility] [address] [place] [address] [facility] [address] [place] [address] Depressive disorder Social History Tobacco Use Types [...] Upcoming Encounters Date Type Department Care Team ([facility] Contact Info) Description 09/06/2024 1:15 PM EDT Office Visit [address] [address] Sindy Obrien MD [address] [place] [phone] 09/07/2024 10:00 AM EDT Medication Management [address] [address] Edgard Dasilva, PharmD [address] [place] [phone] 09/12/2024 1:00 PM EDT Clinical Support [address] [phone] 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, MANSI 11/02/2024 10:15 AM EDT Office Visit [address] [address] Sindy Obrien MD [address] [place] [phone] documented as of this encounter Visit Diagnoses Diagnosis Depressive disorder Depressive disorder, not elsewhere classified documented in this encounter Additional Health Concerns Assessment Noted Time PHQ-9 Depression Total Score: 0 10/24/19 23 3:05 PM EDT documented as of this encounter Care Teams Home Economist Consumer Service Relationship Specialty Start Date End Date Sindy Obrien MD [address] [place] [address] [phone] PCP - General Family Medicine 03/28/19 documented as of this encounter
== END 2024-09-01 11:20 | disposition home or self-care (01) ==
PROVIDERS: PCP Internal Medicine; Visit Provider Internal Medicine Gastroenterology
DX: C16.9 Malignant neoplasm of stomach, unspecified (principal); E53.8 Deficiency of other specified B group vitamins; Z86.0100 Personal history of colon polyps, unspecified; D50.9 Iron deficiency anemia, unspecified
CPT/HCPCS: 99213

== ENCOUNTER → 2024-09-01 09:57 | Outpatient (BNVA) | payer OTHER, SELFPAY | PROVIDERS: PCP Internal Medicine; Visit Provider Internal Medicine Gastroenterology | DX: C16.9 Malignant neoplasm of stomach, unspecified (principal); E53.8 Deficiency of other specified B group vitamins; D50.9 Iron deficiency anemia, unspecified; Z86.0100 Personal history of colon polyps, unspecified | CPT/HCPCS: 99212 ==

== ENCOUNTER 2024-09-07 11:54 | Outpatient (AMB) | payer OTHER, SELFPAY ==
--- NOTE | 2024-09-07 12:13 | HO.NEPHOV ---
Vital Signs 09/07/24 12:14 Height 5 ft 3 in Weight 177 lb BMI 31.4 BP 102/60 Blood Pressure Location Rt brachial Position Sitting Pulse 47 L Pulse Source Pulse Oximeter Pulse Oximetry (%) 95 Oxygen Delivery Method Room Air Intake Visit Reasons: R/S 08/26/2024-Conf Gang Investigator Required: Yes Gang Investigator Language: Floral Design Teacher Services: Gang Investigator Present Gang Investigator Name: Sanjay [id number] Accompanied by: Self / Same As Patient Allergies No Known Allergies [No Known Allergies*] Allergy (Verified 09/07/24 12:14) HPI Comments Details: Frantz was seen in follow up for CKD. He is a longstanding diabetic with uncontrolled blood sugars and high hemoglobin A1c. He has history of gastric cancer and was given chemotherapy. He has no history of proteinuria. He denies retinopathy, coronary artery disease, CVA, CHF, peripheral arterial disease. He has been taking THIAGO-inhibitor, olmesartan, diuretics as well as Farxiga. He denies taking excessive nonsteroidal anti-inflammatories. He does not have any nausea, vomiting, diarrhea, dizziness, shortness of breath, proximal nocturnal dyspnea, orthopnea, pedal edema, hematuria, joint swellings, sinusitis, recent sore throat, recent antibiotic intake, skin rashes, photosensitivity. His recent serum creatinine has improved to 1.17. He has history of renal calculus but does not have any flank pain or hematuria. He denied any new active complaints at the time of this office visit [facility] Medical History (Updated 08/02/24 @ 14:57 by Amrik Garrett MD) Renal calculi Diabetes History of gastrectomy History of colon polyps Gastrointestinal stromal tumor (GIST) (~2014) Gastric adenocarcinoma Hydrocele Gastritis Vitamin B12 deficiency Hypercholesterolemia Hypertension Depression Surgical History H/O lithotripsy Hx of resection of stomach Hx of esophagogastroduodenoscopy Hx of endoscopy History of hernia repair History of back surgery (~2016) History of colonoscopy (~07/22/19) History of esophagogastroduodenoscopy (EGD) (07/22/19) Family History Father No problems noted. Mother History of cancer Social History Household Members: Spouse Housing: Apartment Are you a primary animal care giver to a significant other at home: No Do you presently have visiting nurse or other home services: No Alcohol intake: former Patient Tobacco Use Status: Former Tobacco user Tobacco use type: Cigarette Years Smoked: 35 Advance Directives Date on File: 06/27/24 service: No Current occupational status: retired Review of Systems Const All systems reviewed & are unremarkable except as noted in HPI and below Physical Exam Vital Signs: Last Vital Signs Pulse 47 L 09/07/24 12:14 BP 102/60 09/07/24 12:14 Pulse Ox 95 09/07/24 12:14 Oxygen Delivery Method Room Air 09/07/24 12:14 BMI result Body Mass Index 31.4 Const General: comfortable and no acute distress Orientation/consciousness: patient oriented x3 HEENT Head: Yes normocephalic Mouth: Normal oral and palatal mucosa present Eyes EOM: EOMs intact bilaterally Neck Neck: Yes supple Resp Auscultation: clear to auscultation bilaterally Cardio Jugular venous distension: no JVD Rate: regular rate GI Palpation (GI): Soft to palpation Auscultation: normal bowel sounds Skin General skin exam: no rashes or lesions noted Neuro General: patient oriented x3 and moves all extremities Extrem General: Yes no pedal edema Results Reviewed Nephrology Results: Hgb 12.3 g/dl (14.0-18.0) L 06/26/24 WBC 15.9 X10*3/uL (4.8-10.8) H 06/26/24 Plt Count 334 X10*3/uL (160-400) 06/26/24 Sodium 136 mmol/L (135-145) 07/19/24 Potassium 4.5 mmol/L (3.3-5.1) 07/19/24 Chloride 107 mmol/L (96-108) 07/19/24 Carbon Dioxide 24 mmol/L (22-29) 07/19/24 BUN 14 mg/dL (9-16) 07/19/24 Creatinine 1.17 mg/dL (0.5-1.4) 07/19/24 Calcium 8.8 mg/dL (8.4-10.2) 06/26/24 Urine Creatinine 66.50 mg/dL 07/19/24 Protein/Creatinin Ratio 0.18 (<0.2) 07/19/24 Assessment & Plan Assessment & Plan (1) CKD stage 3a, GFR 45-59 ml/min: Code(s): N18.31 - Chronic kidney disease, stage 3a Category: Medical (2) Renal calculi: Code(s): N20.0 - Calculus of kidney Category: Medical (3) Hypertension: Code(s): I10 - Essential (primary) hypertension Category: Medical Qualifiers: Hypertension type: primary hypertension Qualified Code(s): I10 - Essential (primary) hypertension Plan Frantz has a chronic kidney disease for a long time. His serum creatinine had settled to baseline. He was asked to repeat blood work today. He has history of renal calculus. He has been taking Farxiga. His olmesartan has been on hold since he had RAKESH, which I plan to restart at next visit if his serum creatinine is stable. His blood sugar control has not been optimal. He has history of gastric cancer but never had proteinuria. He is not clinically hypervolemic. He has no nausea, vomiting or diarrhea. I encouraged him not to take any nonsteroidal anti-inflammatories and maintain good hydration. He does not need a renal biopsy now. I did not make any other medication changes today. All questions answered. Follow-up appointment given Orders: Orders Creatinine 4 Months I10 - Essential (primary) hypertension, N18.31 - Chronic kidney disease, stage 3a, N20.0 - Calculus of kidney Electrolytes 4 Months I10 - Essential (primary) hypertension, N18.31 - Chronic kidney disease, stage 3a, N20.0 - Calculus of kidney Calcium 4 Months I10 - Essential (primary) hypertension, N18.31 - Chronic kidney disease, stage 3a, N20.0 - Calculus of kidney Blood Urea Nitrogen 4 Months I10 - Essential (primary) hypertension, N18.31 - Chronic kidney disease, stage 3a, N20.0 - Calculus of kidney Protein Creatinine Ratio, Ur 4 Months I10 - Essential (primary) hypertension, N18.31 - Chronic kidney disease, stage 3a, N20.0 - Calculus of kidney Coding Level of Care Code Est Pt Level 4 (41773) Diagnoses CKD stage 3a, GFR 45-59 ml/min N18.31 Renal calculi N20.0 Primary hypertension I10 Hypertension type: primary hypertension
[2024-09-07 12:14] VITALS: BP 102/60; PULSE 47; O2SAT 95; BMI 31.4
--- OUTSIDE RECORDS SUMMARY | 2024-09-07 14:25 | XMS_ITS | Encounter Summary ---
Author Organization [employer] Address [address] [place] [address] Care Team Providers Care Grinder Operator Tool Name Role Phone Sindy Obrien MD Primary Care Provide r Reason for Visit * Reason Comments Med Refill Encounter Details Date Type Department Care Team ([facility] st Contact Info) Description 09/03/2023 Refill [facility] [address] [place] [address] Sindy Obrien MD [address] [place] [address] Chronic right shoulder pain Social History Tobacco [...] Care Team (Late st Contact Info) Description 09/07/2024 3:30 PM EDT Medication Management [address] [address] Edgard Dasilva, PharmD [address] [place] [address] 11/02/2024 10:15 AM EDT Office Visit [address] [address] Sindy Obrien MD [address] [place] [address] 11/16/2024 2:00 PM EDT Clinical Support [address] [address] 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, MANSI documented as of this encounter Visit Diagnoses Diagnosis Chronic right shoulder pain Pain in joint, shoulder region documented in this encounter Additional Health Concerns Assessment Noted Time PHQ-9 Depression Total Score: 0 10/24/19 23 3:05 PM EDT documented as of this encounter Care Teams Grinder Operator Tool Relationship Specialty Start Date End Date Sindy Obrien MD [address] [place] [phone] PCP - General Family Medicine 03/28/19 documented as of this encounter
--- OUTSIDE RECORDS SUMMARY | 2024-09-07 14:25 | XMS_ITS | Encounter Summary ---
Author Organization [facility] Address [address]t [place] [address] Care Team Providers Care Dental Prosthetist Name Role Phone Sindy Obrien MD Primary Care Provide r Encounter Details Date Type Department Care Team (Late st Contact Info) Description 05/20/2022 Orders Only [facility] [address] [place] [phone] Bhakti Paredes DO [address] [place] [address] Hypertension, unspecified type (Primary Dx) Social History [...] Description 09/07/2024 3:30 PM EDT Medication Management [facility] [address] [place] [phone] Edgard Dasilva, PharmD [address] [place] [address] 11/02/2024 10:15 AM EDT Office Visit [facility] [address] [place] [phone] Sindy Obrien MD [address] [place] [address] 11/16/2024 2:00 PM EDT Clinical Support [address] [phone] 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 RN documented as of this encounter Procedures Procedure Name Priority Date/Time Associated Diagnosis Comments BASIC METABOLIC PANEL Routine 07/08/2022 2:26 PM EST Hypertension, unspecified type documented in this encounter Results * (ABNORMAL) Basic Metabolic Panel (07/08/2022 2:26 PM EST) Glucose 444(H) 65 - 139 mg/dL [facility] Comment: Verified by repeat analysis. ? Non-fasting reference interval Urea Nitrogen (BUN) 14 7 - 25 mg/dL [facility] Creatinine, Serum 1.23 0.70 - 1.28 mg/dL [facility] eGFR 62 > OR = 60 mL/min/1 .73m2 [facility] Comment: The eGFR is based on the CKD-EPI 2020 equation. To calculate the new eGFR from a previous Creatinine or Cystatin C result, go to https://www.kidney.org/professionals/ kdoqi/gfr%5Fcalculator BUN/Creatinine Ratio NOT APPLICABLE 6 - 22 (calc) [facility] Sodium 132(L) 135 - 146 mmol/L [facility] Potassium 4.3 3.5 - 5.3 mmol/L [facility] Chloride 96(L) 98 - 110 mmol/L [facility] Carbon Dioxide 29 20 - 32 mmol/L [facility] Calcium 9.3 8.6 - 10.3 mg/dL [facility] Blood Venous blood specimen / Unknown 07/08/2022 2:26 PM EST 07/08/2022 2:27 PM EST Narrative [facility] - 07/09/2022 12:11 PM EST FASTING:NO FASTING: NO Bhakti Paredes DO LAB BLOOD ORDERABLES Final R esult [facility] [address], [place] [address] [facility] [address] [facility], ([address]) [place] [address] documented in this encounter Visit Diagnoses Diagnosis Hypertension, unspecified type- Primary documented in this encounter Care Teams Dental Prosthetist Relationship Specialty Start Date End Date Sindy Obrien MD [address] [place] [phone] PCP - General Family Medicine 03/28/19 documented as of this encounter
--- OUTSIDE RECORDS SUMMARY | 2024-09-07 14:25 | XMS_ITS | Encounter Summary ---
Author Organization [employer] Address [address] [address] [address] 7t [place] [address] Care Team Providers Care Medical Support Assistant Name Role Phone Sindy Obrien MD Primary Care Provide r Encounter Details Date Type Department Care Team ([facility] st Contact Info) Description 09/03/2023 Orders Only [facility] [address] [place] [address] Sindy Obrien MD [address] [place] [address] Chronic right shoulder pain (Primary Dx) Social [...] Description 09/07/2024 3:30 PM EDT Medication Management [address] [address] Edgard Dasilva, PharmD [address] [place] [address] 11/02/2024 10:15 AM EDT Office Visit [address] [address] Sindy Obrien MD [address] [place] [address] [phone] 11/16/2024 2:00 PM EDT Clinical Support [address] [address] 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 RN documented as of this [...] EDT Narrative 09/08/2023 11:17 AM EDT ? [facility] ?[address] ?[place] [address] ? CT Scan Report ? Signed ? Patient: Junior Colon,Frantz ?MR#: [id number] ?? [id number] ? : 1950 ?Acct:[id number] ? Age/Sex: 73 / M ?ADM Date: 09/07/23 ? Loc: HO.CT ? Attending Dr: Christa Ferrera MD ? Ordering Physician: Christa Ferrera MD ?? Date of Service: 09/07/23 ?? Procedure(s): CT chest w IV con ?? Accession Number(s): [id number] ? cc: Sindy Obrien MD; Christa Ferrera [...] DLP: ?? 392 mGy-cm ? FINDINGS: ? PIT CREW SUPPORT WORKER: Enlarged superior mediastinum. Clear lungs. Nonobstructive bowel [...] 1113 ? DD/ 1227 ? TD/TT: ? [employer] Field Technician: ? Procedure Note Donsandrainterpreter, Image - 09/08/[address] [address] [address] Scan Report Signed Patient: Tyson Fink#: [id number] : 1Acct:[id number] Age/Sex: 73 / MADM Date: 09/07/23 Loc: HO.CT Attending Dr: Christa Ferrera MD Ordering Physician: Christa Ferrera MD Date of Service: 09/07/23 Procedure(s): CT chest w IV con Accession Number(s): [id number] cc: Sindy Obrien MD; Christa Ferrera MD [...] technique TOTAL EXAM DLP: 392 mGy-cm FINDINGS: PIT CREW SUPPORT WORKER: Enlarged superior mediastinum. Clear lungs. Nonobstructive bowel [...] in OV> 09/08/23 1113 DD/ 1227 TD/TT: [employer] Field Technician: us [facility] External Provider IMG CT PROCEDURES Final Result * Stress test with myocardial perfusion (09/04/2023 8:15 AM EDT) 09/04/2023 8:15 AM EDT Narrative [facility] - 09/04/2023 3:44 PM EDT ? [facility] ?[address] ?[place] [address] ?Nuclear Medicine Report ? Signed ? Patient: Junior Colon,Frantz ?MR#: [id number] ?? [id number] ? : 1950 ?Acct:[id number] ? Age/Sex: 73 / M ?ADM Date: 09/03/23 ? Loc: HO.CARD ? Attending Dr: Amanda SCOTT ? Ordering Physician: Amanda De La Paz ?? Date of Service: 09/03/23 ?? Procedure(s): NM cardiolite stress test ?? Accession Number(s): [id number] ? cc: Sindy Obrien MD; Amanda De [...] 1540 ? DD/ 0815 ? TD/TT: ? [employer] Field Technician: ? Procedure Note Aminata More - 09/04/[address] [address] Nuclear Medicine Report Signed Patient: Frantz FinkMR#: [id number] : 1Acct:[id number] Age/Sex: 73 / MADM Date: 09/03/23 Loc: ALLIE Attending Dr: Amanda De La Paz PRODUCT MANAGER [employer]-C Ordering Physician: Amanda De La Paz Date of Service: 09/03/23 Procedure(s): NM cardiolite stress test Accession Number(s): [id number] cc: Sindy Obrien MD; Amanda De La Paz NP-[facility] Myocardial perfusion study Indication: Shortness of breath [...] in OV> 09/04/23 1540 DD/ 0815 TD/TT: [employer] Field Technician: [facility] External Provider CV STRE SS PROCEDURES Edited Result - Final [facility] [address] [place] [address] documented in this encounter Visit Diagnoses Diagnosis Chronic right shoulder pain- Primary Pain in joint, shoulder region documented in this encounter Additional Health Concerns Assessment Noted Time PHQ-9 Depression Total Score: 0 10/24/19 23 3:05 PM EDT documented as of this encounter Care Teams Medical Support Assistant Relationship Specialty Start Date End Date Sindy Obrien MD [address] [place] [phone] PCP - General Family Medicine 03/28/19 documented as of this encounter
--- OUTSIDE RECORDS SUMMARY | 2024-09-07 14:25 | XMS_ITS | Encounter Summary ---
Author Organization [employer] Address 75 [facility] 7t [place] [address] Care Team Providers Care Reference Library Assistant Name Role Phone Sindy Obrien MD Primary Care Provide r Reason for Visit * Reason Onset Date Comments FYI 11/18/2023 Encounter Details Date Type Department Care Team ([facility] Contact Info) Description 11/18/2023 Telephone [facility] MEDICINE [address] [place], [place] [phone] Sindy Obrien MD [address] [place], [place] [phone] FYI Social History Tobacco Use Types Packs/Day [...] Description 09/07/2024 3:30 PM EDT Medication Management [address] [address] Edgard Dasilva, Nithya [address] [place] [address] 11/02/2024 10:15 AM EDT Office Visit [address] [address] Sindy Obrien MD [address] [place] [address] 11/16/2024 2:00 PM EDT Clinical Support [address] [address] 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, RN documented as of this [...] documented as of this encounter Care Teams Reference Library Assistant Relationship Specialty Start Date End Date Sindy Obrien MD [address] [place] [address] PCP - General Family Medicine 03/28/19 documented as of this encounter
--- OUTSIDE RECORDS SUMMARY | 2024-09-07 14:25 | XMS_ITS | Clinical Summary ---
Author Organization [facility] Address [address] [place] [address] Care Team Providers Care Geodetic Surveyor Technologist Name Role Phone Sindy Obrien MD Primary [...] Diabetes: Hemoglobin A1C 10/12/2022 07/15/2022 Influenza Vaccine (Season Ended) 2025 Hepatitis B Vaccine Aged Out No longe r eligible based on patient's age to complete this topic [place] [address] [place] [address] ([id number]) [facility] ([id number]) Care Teams Geodetic Surveyor Technologist Relationship Specialty Start Date End Date Sindy Obrien MD [address] [place] [phone] PCP - General Internal Medicine 01/01/22
--- OUTSIDE RECORDS SUMMARY | 2024-09-07 14:25 | XMS_ITS | Encounter Summary ---
Author Organization [employer] Address 75 [facility] 7t [place] [address] Care Team Providers Care Director Of Enterprise Applications Name Role Phone Sindy Obrien MD Primary Care Provide r Reason for Visit * Reason Comments Med Refill Encounter Details Date Type Department Care Team ([facility] st Contact Info) Description 12/15/2023 Refill [facility] MED[facility]INE [address] [place] [address] Sindy Obrien MD [address] [place] [address] Chronic right shoulder pain Social History Tobacco [...] Description 09/07/2024 3:30 PM EDT Medication Management [address] [address] Edgard Dasilva, Nithya [address] [place] [address] 11/02/2024 10:15 AM EDT Office Visit [address] [address] Sindy Obrien MD [address] [place] [address] 11/16/2024 2:00 PM EDT Clinical Support [address] [address] 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 RN documented as of this [...] documented as of this encounter Care Teams Director Of Enterprise Applications Relationship Specialty Start Date End Date Sindy Obrien MD [address] [place] [address] PCP - General Family Medicine 03/28/19 documented as of this encounter
--- OUTSIDE RECORDS SUMMARY | 2024-09-07 14:25 | XMS_ITS | Encounter Summary ---
Author Organization [email or web address] Address [address] 7[address] [place] [address] Care Team Providers Care Lens Polisher Hand Name Role Phone Sindy Obrien MD Primary Care Provide r Reason for Visit * Reason Comments Med Refill Encounter Details Date Type Department Care Team ([facility] st Contact Info) Description 05/20/2024 Refill [facility] [address] [place], [place] [phone] Sindy Obrien MD [address] [place] [address] HTN (hypertension), benign; Type 2 diabetes mellitus with hyperglycemia, with long-term current use of insulin ([facility]) Social History Tobacco Use Types Packs/Day Years [...] Description 09/07/2024 3:30 PM EDT Medication Management [address] [address] Edgard Dasilva PharmD [address] [place] [address] 11/02/2024 10:15 AM EDT Office Visit [address] [address] Sindy Obrien MD [address] [place] [address] 11/16/2024 2:00 PM EDT Clinical Support [address] [address] 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 RN documented as of this encounter Goals Goal Patient Goal Type Associated Problems Recent Progress Patient-Stated? Author Hemoglobin A1c < 8 Result Component 11.8( 10:23 AM EST) No Caroline Neri, Nithya documented as of this encounter Visit Diagnoses Diagnosis HTN (hypertension), benign Essential hypertension, benign Type 2 diabetes mellitus with hyperglycemia, with long-term current use of insulin ([facility]) documented in this encounter Additional Health Concerns Assessment Noted Time PHQ-9 Depression Total Score: 0 10/24/19 23 3:05 PM EDT documented as of this encounter Care Teams Lens Polisher Hand Relationship Specialty Start Date End Date Sindy Obrien MD [address] [place] [address] PCP - General Family Medicine 03/28/19 documented as of this encounter
--- OUTSIDE RECORDS SUMMARY | 2024-09-07 14:25 | XMS_ITS | Encounter Summary ---
Author Organization [employer] [facility] Address 75 [facility] 7t [place] [address] Care Team Providers Care Toxicologist Name Role Phone Sidny Obrien MD Primary Care Provide r Reason for Visit * Reason Comments Med Refill Encounter Details Date Type Department Care Team (Late Contact Info) Description 10/29/2022 Refill [facility] MEDICINE [address] [place] [address] [facility] [address] [place] [address] Depressive disorder Social History Tobacco Use Types [...] Department Care Team (Late Contact Info) Description 09/07/2024 3:30 PM EDT Medication Management [facility]INE [address] [place] [address] Edgard Dasilva, AtiyaD [address] [place] [address] 11/02/2024 10:15 AM EDT Office Visit [address] [address] Sindy Obrien MD [address] [place] [address] 11/16/2024 2:00 PM EDT Clinical Support [address] [phone] 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 RN documented as of this encounter Visit Diagnoses Diagnosis Depressive disorder Depressive disorder, not elsewhere classified documented in this encounter Additional Health Concerns Assessment Noted Time PHQ-9 Depression Total Score: 0 10/24/19 23 3:05 PM EDT documented as of this encounter Care Teams Toxicologist Relationship Specialty Start Date End Date Sindy Obrien MD [address] [place] [phone] PCP - General Family Medicine 03/28/19 documented as of this encounter
--- OUTSIDE RECORDS SUMMARY | 2024-09-07 14:25 | XMS_ITS | Encounter Summary ---
Author Organization [employer] Address [address] [facility] [address] 7t [place] [address] Care Team Providers Care Target Aircraft Technician Name Role Phone Sindy Obrien MD Primary Care Provide r Reason for Visit * Reason Comments Med Refill Encounter Details Date Type Department Care Team ([facility] st Contact Info) Description 04/26/2023 Refill [facility] MEDICINE 230 [place] [address] Sindy Obrien MD 230 [place] [address] HTN (hypertension), benign Social History Tobacco Use [...] Description 09/07/2024 3:30 PM EDT Medication Management [address] [address] Edgard Dasilva, PharmD [address] [place] [address] 11/02/2024 10:15 AM EDT Office Visit [address] [address] Sindy Obrien MD [address] [place] [address] 11/16/2024 2:00 PM EDT Clinical Support [address] [phone] 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 RN documented as of this encounter Visit Diagnoses Diagnosis HTN (hypertension), benign Essential hypertension, benign documented in this encounter Additional Health Concerns Assessment Noted Time PHQ-9 Depression Total Score: 0 10/24/19 23 3:05 PM EDT documented as of this encounter Care Teams Target Aircraft Technician Relationship Specialty Start Date End Date Sindy Obrien MD [address] [place] [address] [phone] PCP - General Family Medicine 03/28/19 documented as of this encounter
--- OUTSIDE RECORDS SUMMARY | 2024-09-07 14:25 | XMS_ITS | Encounter Summary ---
Author Organization [employer] [facility] Address 75 [facility] 7t [place] [address] Care Team Providers Care Cemetery Warden Name Role Phone Sindy Obrien MD Primary Care Provide r Encounter Details Date Type Department Care Team (Late Contact Info) Description 02/13/2023 Orders Only [facility] [address] [place] [address] Provider, MD Oren Social History Tobacco Use [...] 3:30 PM EDT Medication Management [facility] [address] [place] [address] Edgard Dasilva, PharmD [address] [place] [address] 11/02/2024 10:15 AM EDT Office Visit [facility] [address] [place] [address] [phone] Sindy Obrien MD [address] [place] [address] 11/16/2024 2:00 PM EDT Clinical Support [facility] [address] [place] [address] [phone] 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, RN documented as of this encounter Procedures Procedure Name Priority Date/Time Associated Diagnosis Comments HM COLONOSCOPY Routine 01/23/2023 documented in this encounter Results * Hm Colonoscopy (01/23/2023) us Historical Provider HEALTH MAINTENANCE Final Result documented in this encounter Visit Diagnoses Not on filedocumented in this encounter Additional Health Concerns Assessment Noted Time PHQ-9 Depression Total Score: 0 10/24/19 23 3:05 PM EDT documented as of this encounter Care Teams Cemetery Warden Relationship Specialty Start Date End Date Sindy Obrien MD [address] [place] [address] [phone] PCP - General Family Medicine 03/28/19 documented as of this encounter
--- OUTSIDE RECORDS SUMMARY | 2024-09-07 14:25 | XMS_ITS | Encounter Summary ---
Author Organization [employer] Address [address] [facility] [address] [place] [address] Care Team Providers Care Sixth Grade Teacher Name Role Phone Sindy Obrien MD Primary Care Provide r Reason for Visit * Reason Comments Med Refill Encounter Details Date Type Department Care Team ([facility] st Contact Info) Description 06/02/2023 Refill [facility] MEDICINE [address] [place] [address] Sindy Obrien MD 230 [place] [address] Vitamin D deficiency, unspecified Social History Tobacco [...] Description 09/07/2024 3:30 PM EDT Medication Management [address] [address] Edgard Dasilva, PharmD [address] [place] [address] 11/02/2024 10:15 AM EDT Office Visit [address] [address] Sindy Obrien MD [address] [place] [address] 11/16/2024 2:00 PM EDT Clinical Support [address] [address] 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 RN documented as of this encounter Visit Diagnoses Diagnosis Vitamin D deficiency, unspecified documented in this encounter Additional Health Concerns Assessment Noted Time PHQ-9 Depression Total Score: 0 10/24/19 23 3:05 PM EDT documented as of this encounter Care Teams Sixth Grade Teacher Relationship Specialty Start Date End Date Sindy Obrien MD [address] [place] [phone] PCP - General Family Medicine 03/28/19 documented as of this encounter
--- OUTSIDE RECORDS SUMMARY | 2024-09-07 14:25 | XMS_ITS | Encounter Summary ---
Author Organization [employer] Address [address] [facility] [address] 7t [place] [address] Care Team Providers Care Manager Commodities Name Role Phone Sindy Obrien MD Primary Care Provide r Reason for Visit * Reason Onset Date Comments CHART PREP 09/05/2024 Encounter Details Date Type Department Care Team ([facility] Contact Info) Description 09/05/2024 Telephone [facility] MEDICINE [address] [place] [address] Sindy Obrien MD [address] [place] [address] CHART PREP Social History Tobacco Use Types Packs/Day Years [...] encounter Miscellaneous Notes * Telephone Encounter - Regino Shelton [place] - 09/05/2024 4:01 PM EDT Chart Prep Labs: not applicable Images: done Vaccines due: yes RSV, Zoster, Pneumo Referrals: none Screenings: Foot Exam Overdue care gaps: A1C, Glucose, SDOH, Oral Health, LORENZO-7, Disability documented in this encounter Plan of Treatment Upcoming Encounters Date Type Department Care Team (Late st Contact Info) Description 09/07/2024 3:30 PM EDT Medication Management [address] [address] Edgard Dasilva, PharmD [address] [place] [address] 11/02/2024 10:15 AM EDT Office Visit [address] [address] Sindy Obrien MD [address] [place] [address] 11/16/2024 2:00 PM EDT Clinical Support [address] [address] 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 RN documented as of this encounter Goals Goal Patient Goal Type Associated Problems Recent Progress Patient-Stated? Author Hemoglobin A1c < 8 Result Component 11.8( 5 10:23 AM EST) No Caroline Neri, PharmD documented as of this encounter Visit Diagnoses Not on filedocumented in this encounter Additional Health Concerns Assessment Noted Time PHQ-9 Depression Total Score: 0 06/06/20 24 1:16 PM EST documented as of this encounter Care Teams Manager Commodities Relationship Specialty Start Date End Date Sindy Obrien MD 230 [place] [address] PCP - General Family Medicine 03/28/19 documented as of this encounter
--- OUTSIDE RECORDS SUMMARY | 2024-09-07 14:26 | XMS_ITS | Clinical Summary ---
Author Organization [employer] Address [address] [facility] [address] [place] [address] Care Team Providers Care Ensemble Member Name Role Phone Sindy Obrien MD [...] strip 11 023 Active Continuous Blood Gluc Chemistry Technical Officer (FreeStyle Antione 2 Phoenix) deviceIndicatio ns:Type 2 diabetes mellitus with hyperglycemia, with long-term current use of insulin (CMS/[facility]) Scan sensor every 8 hours 1 each 024 Active Acetaminophen Extra Strength 500 MG [...] hyperglycemia, without long-term current use of insulin (CMS/HCC) USE DIRECTED ONCE DAILY 100 each 12 024 Active Continuous Glucose Sensor (FreeStyle Antione 2 Sensor) miscIndications :Type 2 diabetes mellitus with hyperglycemia, with long-term current use of insulin (CMS/HCC) USE TO TEST BLOOD SUGAR. CHANGE EVERY 14 DAYS 2 each 2 024 Active naloxone (Narcan) 4 mg/0.1 mL nasal sprayIndication s:Chronic right shoulder pain Administer 1 spray (4 mg) into affected nostril(s) if needed for opioid reversal. May repeat every 2-3 minutes if needed, alternating nostrils, until medical assistance becomes available. 2 each 3 024 2024 Active dapagliflozin (Farxiga) 10 MGIndications:T ype 2 diabetes mellitus with hyperglycemia, with long-term current use of insulin ([facility]) Take 1 tablet (10 mg) by mouth Once per day. 30 tablet 11 024 2024 Active Continuous Glucose Chemistry Technical Officer (FreeStyle Antione 2 [place]) deviceIndicatio ns:Type 2 diabetes mellitus with hyperglycemia, with long-term current use of insulin ([facility]) Scan sensor every 8 hours 1 each 024 Active Continuous Glucose Sensor (FreeStyle Antione 2 Sensor) miscIndications :Type 2 diabetes mellitus with hyperglycemia, with long-term current use of insulin ([facility]) Apply 1 sensor every 14 days 2 each 1 024 Active glucose blood (FreeStyle Precision Irwin Test) test stripIndication s:Type 2 diabetes mellitus with hyperglycemia, with long-term current use of insulin ([facility]) Use to test blood sugar 3 times daily 100 each 1 024 2024 Active oxyCODONE (Roxicodone) 5 MG immediate release tabletIndicatio ns:Chronic right shoulder pain Take 1 tablet (5 mg) by mouth every 8 (eight) hours if needed for severe pain for up to 28 days. 84 tablet 025 2024 Active tamsulosin (Flomax) 0.4 MG 24 hr capsule Take 1 capsule by mouth Once per day. 025 Active amLODIPine (Norvasc) 10 MG tabletIndicatio ns:HTN (hypertension), benign Take 1 tablet (10 mg) by mouth in the morning. 90 tablet 1 025 Active carvedilol (Coreg) 12.5 MG tabletIndicatio ns:HTN (hypertension), benign TAKE 1 TABLET BY MOUTH TWICE DAILY IN THE MORNING AND IN THE EVENING WITH FOOD 60 tablet 3 025 Active olmesartan (BENIcar) 5 MG tabletIndicatio ns:Primary hypertension TAKE 1 TABLET BY MOUTH EVERY MORNING 90 tablet 025 Active atorvastatin (Lipitor) 20 MG tabletIndicatio ns:HTN (hypertension), benign Take 1 tablet (20 mg) by mouth in the morning. 90 tablet 1 025 Active mirtazapine (Remeron) 15 MG tabletIndicatio ns:Depressive disorder TAKE 1 TABLET BY MOUTH AT BEDTIME 90 tablet 1 025 Active cyanocobalamin (Vitamin B-12) 1000 MCG tabletIndicatio ns:Routine health maintenance Take 1 tablet (1,000 mcg) by mouth in the morning. 90 tablet 1 025 Active insulin lispro (HumaLOG KWIKPEN) 100 UNIT/ML injectionIndica tions:Type 2 diabetes mellitus with hyperglycemia, with long-term current use of insulin (CMS/[facility]) 8 units with meal 2 mL 2 025 Active insulin glargine (Lantus SoloStar) 100 UNIT/ML penIndications: Type 2 diabetes mellitus with hyperglycemia, with long-term current use of insulin (CMS/[facility]) Inject 35 Units under the skin 2 times daily. INJECT 40 UNITS SUBCUTANEOUSLY EVERY MORNING AND INJECT 30 UNITS SUBCUTANEOUSLY EVERY EVENING 15 mL 3 025 Active pantoprazole (ProtoNix) 40 MG EC tablet Take 1 tablet by mouth 2 times daily. 020 2024 Discontinued(M ed list cleanup (will not trigger notification to Pharmacy)) dulaglutide (Trulicity) 4.5 MG/0.5ML solution pen-injectorInd ications:Type 2 diabetes mellitus with hyperglycemia, with long-term current use of insulin (CMS/[facility]) Inject 4.5 mg under the skin 1 (one) time per week. 4 each 023 2024 Discontinued(M ed list cleanup (will not trigger notification to Pharmacy)) glucose blood (FreeStyle Precision Irwin Test) test stripIndication s:Type 2 diabetes mellitus with hyperglycemia, with long-term current use of insulin (CMS/HCC) Use to test blood sugar 3 times daily 100 each 12 024 2024 glipiZIDE XL (Glucotrol XL) 10 MG 24 hr tabletIndicatio ns:Type 2 diabetes mellitus with hyperglycemia, with long-term current use of insulin ([facility]) TAKE 1 TABLET BY MOUTH TWICE DAILY IN THE MORNING AND IN THE EVENING 60 tablet 11 024 2024 Discontinued atorvastatin (Lipitor) 20 MG tablet Take 1 tablet (20 mg) by mouth in the morning. 90 tablet 1 024 2024 Discontinued(R eorder (will not trigger notification to Pharmacy)) mirtazapine (Remeron) 15 MG tabletIndicatio ns:Depressive disorder TAKE 1 TABLET BY MOUTH AT BEDTIME 90 tablet 1 024 2024 Discontinued(R eorder (will not trigger notification to Pharmacy)) amLODIPine (Norvasc) 10 MG tablet Take 1 tablet (10 mg) by mouth in the morning. 90 tablet 1 024 2024 Discontinued(R eorder (will not trigger notification to Pharmacy)) cyanocobalamin (Vitamin B-12) 1000 MCG tabletIndicatio ns:Routine health maintenance Take 1 tablet (1,000 mcg) by mouth in the morning. 90 tablet 1 024 2024 Discontinued(R eorder (will not trigger notification to Pharmacy)) hydroCHLOROthia zide (HYDRODiuril) 25 MG tabletIndicatio ns:HTN (hypertension), benign TAKE 1 TABLET BY MOUTH EVERY MORNING 90 tablet 024 2024 Discontinued(M ed list cleanup (will not trigger notification to Pharmacy)) carvedilol (Coreg) 12.5 MG tabletIndicatio ns:HTN (hypertension), benign TAKE 1 TABLET BY MOUTH TWICE DAILY IN THE MORNING AND IN THE EVENING WITH FOOD 60 tablet 3 2024 Discontinued(R eorder (will not trigger notification to Pharmacy)) insulin glargine (Lantus SoloStar) 100 UNIT/ML penIndications: Type 2 diabetes mellitus with hyperglycemia, with long-term current use of insulin ([facility]) INJECT 40 UNITS SUBCUTANEOUSLY EVERY MORNING AND INJECT 30 UNITS SUBCUTANEOUSLY EVERY EVENING 15 mL 3 024 2024 Discontinued(R eorder (will not trigger notification to Pharmacy)) olmesartan (BENIcar) 5 MG tabletIndicatio ns:Primary hypertension TAKE 1 TABLET BY MOUTH EVERY MORNING 90 tablet 025 2024 Discontinued(R eorder (will not trigger notification to Pharmacy)) oxyCODONE [...] Active Problems Problem Noted Date Diagnosed Date Kidney stones 09/06/2024 Assessment & Plan (09/06/2024 2:16 PM EDT): Do not miss appointment with urology and nephrology Vestibular disorder, unspecified laterality 05/10 Assessment & [...] start him on oxycodone 5mg Q 8hrs [employer]ISE OFFICER will be initiated Plan is that after [...] pt in case needs to return to [facility] Type 2 diabetes mellitus wit h hyperglycemia, with long-term current use of insulin 10/23/2022 Assessment & Plan (09/06/2024 2:15 PM EDT): Diabetes is: not controlled - Lab Results Component Value Date HGBA1C 11.8 (H) 07/19/2024 HGBA1C 11.9 (A) 06/06/2024 HGBA1C 9.2 (A) 11/11/2023 - Lab Results Component Value Date MICROALBUR 54.4 07/27/2020 CREATININE 1.17 07/19/2024 -Changes: Extensive counseling about diabetic diet done today, I educated patient today I let him know long-acting aches insulin can be given once a day max twice a day I instructed him to use Lantus 35 units in the morning and at bedtime I will discontinue his glipizide and I put him on Humalog 8 units before his only meal during the day that is at 3 PM, I also advised patient to do at least 3 times a day a meal but he declines, patient to be followed by pharmacy CDTM - Diabetic eye exam: Pending - Diabetic foot exam: Pending Patient has a follow-up appointment with me in October 28, 2024 Assessment & Plan (06/06/2024 1:43 PM EST): [...] stomach 05/14/2022 Overview (06/12/2022): Patient seen by [facility] on 05/29/22: 10/2021 EGD showed normal [...] to miss his appointment Depressive disorder 05/14/2022 Assessment & Plan (09/06/2024 2:15 PM EDT): Counseling done continue with mirtazapine 15 mg at bedtime Epigastric pain 05/14/2022 Iron deficiency anemia due to chronic blood loss 05/14/2022 Malignant tumor of stomach 05/14/2022 Rash 05/14/2022 HTN (hypertension), benign 05/12/2022 Overview (05/12/2022): avoid salt. continue amlodopine 10 mg qd. D/c Coreg 6.25 mg bid. Prescribed Coreg 12.5 mg bid. I spoke with [facility], and pt. will bring [facility] in for Assessment & Plan (09/06/2024 2:13 PM EDT): I advised low-sodium diet and weight reduction I advised to take his medications as prescribed without missing any dose all his refills are done today I advised to log his blood pressure at home and report back to me with readings, if blood pressure is persistently above 140/90 report back to me Patient also to be followed by pharmacy CDTM Assessment & Plan (09/02/2023 11:27 AM EDT): [...] [employer] and has been ready to pick out hand x last week ---advised pt to get [...] Coreg 12.5 mg bid. I spoke with [facility], and pt. will bring [employer] [...] Encounters Date Type Department Care Team Description 09/06/2024 1:15 PM EDT Office Visit [facility] [address] [place] [address] Sindy Obrien MD Type 2 diabetes mellitus with hyperglycemia, with long-term current use of insulin ([facility]) (Primary Dx); HTN (hypertension), benign; Primary hypertension; Depressive disorder; Routine health maintenance; Kidney stones 09/06/2024 Travel 09/05/2024 Telephone [facility] [address] [place] [address] Sindy Obrien MD CHART PREP 09/01/2024 Telephone [facility] [address] [place] [address] Sindy Obrien MD 08/18/2024 Telephone [facility] [address] [place] [address] Sindy Obrien MD No Show 08/12/2024 Refill [facility] [address] [place] [address] Sindy Obrien MD Chronic right shoulder pain 08/04/2024 Telephone [facility] [address] [place] [address] Sindy Obrien MD HDF 07/19/2024 Orders Only GENERIC EXTERNAL DATA DEPARTMENT Provider, Generic External Data 07/12/2024 1:00 PM EST Clinical Support [facility] [address] [place] [phone] 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 RN Chronic right shoulder pain (Primary Dx) 07/12/2024 Refill [facility] [address] [place] [phone] 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 RN Chronic right shoulder pain 07/12/2024 Travel 07/12/[address] [address] 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, MANSI Recommend [employer] OFFICER Tier 2 06/25/2024 Orders Only GENERIC EXTERNAL DATA DEPARTMENT Provider, Generic External Data 06/24/2024 9:00 AM EST Office Visit [facility] [address] [place] [phone] Gregor Sarmiento MD RLQ abdominal pain (Primary Dx) 06/24/2024 Orders Only GENERIC EXTERNAL DATA DEPARTMENT Provider, Generic External Data 06/24/2024 Travel 06/20/2024 Refill [facility] [address] [place] [address] Sindy Obrien MD Primary hypertension 06/14/2024 Telephone [facility] [address] [place] [address] [phone] Sindy Obrien MD refill 06/13/2024 Refill [facility] [address] [place] [address] Sindy Obrien MD Chronic right shoulder pain 06/10/2024 Orders Only GENERIC EXTERNAL DATA DEPARTMENT Provider, Generic External Data from Last 3 Months Immunizations Name Administration Dates Next Due Brittaney Covid-19 Vaccine 12+ 05/28/2021,10/26/19 21,09/27/2020 Pneumococcal Conjugate [...] Sign Reading Time Taken Comments Blood Pressure 159/102 09/06/2024 1:23 PM EDT Pulse 78 09/06/2024 1:23 PM EDT Temperature 36.6 ??C (97.8 ??F) 09/06/2024 1:23 PM ED T Respiratory Rate 20 09/06/2024 1:23 PM EDT Oxygen Saturation 98% 09/06/2024 1:23 PM EDT Inhaled Oxygen Concentration - - Weight 81 kg (178 lb 9.6 oz) 09/06/2024 1:23 PM EDT Height 160 cm (5' 3 ) 09/06/2024 1:23 PM EDT Body Mass Index 31.64 09/06/2024 1:23 PM EDT Plan of Treatment Upcoming Encounters Date Type Department Care Team (Late st Contact Info) Description 09/07/2024 3:30 PM EDT Medication Management [address] [phone] Edgard Dasilva, PharmD [address] [place] [phone] 11/02/2024 10:15 AM EDT Office Visit [address] [address] Sindy Obrien MD [address] [place] [phone] 11/16/2024 2:00 PM EDT Clinical Support [address] [address] 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, MANSI Health Maintenance Due Date Last Done Comments [...] 06/06/2025 06/06/2024 Depression Screening 06/06/2025 06/06/2024, 06/06/20 Tobacco Screening 06/06/2025 06/06/2024 Eye Exam 08/17/2025 [...] 10:23 AM EST) No Caroline Neri, AtiyaD Procedures Procedure Name Priority Date/Time Associated Diagnosis Comments POCT GLUCOSE Routine 09/06/2024 1:30 PM EDT Type 2 diabetes mellitus with hyperglycemia, with long-term current use of insulin (CMS/HCC) CREATININE, SERUM Routine 07/19/2024 10: 23 AM [...] 1:29 AM EST Vestibular disorder, unspecified laterality HM COLONOSCOPY Routine 01/23/2023 LIPID PANEL, STANDARD Routine 12/30/2021 9:07 AM EDT ZZZ HISTORICAL OCCULT BLOOD STOOL X3 Routine 06/28/2019 12:00 AM EST from Last 3 Months or Most Recently Relevant to Health Maintenance Results * POCT Glucose (09/06/2024 1:30 PM EDT) Glucose Blood, POC 137 60 - 200 mg/dL Blood Capillary blood specimen / Unknown 09/06/2024 1:30 PM EDT us Sindy Carlson MD POINT OF CARE TEST EN TER/EDIT ORDERABLES Final Result * Creatinine, Serum (07/19/2024 10:23 AM EST) Only the most recent of2 resultswithin the time period is included. Creatinine, Serum 1.17 0.5 - 1.4 mg/dL [facility] Estimated Glomerular Filt Rate >60 [facility] Comment:Chronic Kidney Disea se: Estimated GFR < 60 mL/min/[id number] Kidney Disease: Estimated GFR < 15 mL/min/1.73m2 07/19/2024 10:2 3 AM EST 07/19/2024 10:23 AM EST us Generic External Data Provider LAB BLOOD ORDERAB LES Final Result [facility] [address] [place] [phone] * BUN (Blood Urea Nitrogen) (07/19/2024 10:23 AM EST) Only the most recent of2 resultswithin the time period is included. Urea Nitrogen (BUN) 14 9 - 16 mg/dL [facility] 07/19/2024 10:2 3 AM EST 07/19/2024 10:23 AM EST Generic External Data Provider LAB BLOOD ORDERAB LES Final Result Performing Organization Address [facility] de Phone Number [facility] [address] [place] [phone] * (ABNORMAL) Hemoglobin A1c (07/19/2024 10:23 AM EST) Pathologist [facility] Hemoglobin A1c 11.8(H) <6.0 % [facility] Comment:Hemoglobin A1C Refer ence Range Adults: 4.8 - 6.0 % Non diabetic: < 6.0 % Goal: < 7.0 %Additional Action Suggested: > 8.0 %Note: Hemoglobin A1c results are invalid for patients with abnormal amounts of HbF. Blood transfusions may impact the HbA1c concentration in the patient sample. Estimated Average Glucose 292 mg/dL [facility] Comment:eAG = Estimated ave rage glucose which is %A1C expressed asaverage glucose, using the formula of the L1P-YlmhzryExenkcf Glucose study (ADAG), Diabetes Care, Vol.31,#8,Jan. 2007 07/19/2024 10:2 3 AM EST 07/19/2024 10:23 AM EST Generic External Data Provider LAB BLOOD ORDERAB LES Final Result Performing Organization Address [facility] Co de Phone Number [facility] [address] [place] [phone] * (ABNORMAL) Electrolyte Panel (07/19/2024 10:23 AM EST) Only the most recent of2 resultswithin the time period is included. Sodium 136 135 - 145 mmol/L [facility] Potassium 4.5 3.3 - 5.1 mmol/L [facility] Chloride 107 96 - 108 mmol/L [facility] Carbon Dioxide 24 22 - 29 mmol/L [facility] Anion Gap 10(L) 12 - 20 [facility] 07/19/2024 10:2 3 AM EST 07/19/2024 10:23 AM EST us Generic External Data Provider LAB BLOOD ORDERAB LES Final Result Performing Organization Address [facility] Co de Phone Number [facility] [address] [place] [phone] * Protein Creatinine Ratio, Urine (07/19/2024 10:21 AM EST) Creatinine, Urine 66.50 mg/dL [facility] Protein, Total, Random Urine 12 <12 mg/dL [facility] Protein/Creatin ine Ratio, Ur 0.18 <0.2 [facility] Comment:The spot urine prote in:creatinine ratio may increase to 0.3during normal . 07/19/2024 10:2 1 AM EST 07/19/2024 11:12 AM EST us Generic External Data Provider LAB URINE ORDERAB LES Final Result Performing Organization Address [facility] de Phone Number [facility] [address] [place] [phone] * POCT VELASQUEZ-14 Urine Drug Screen (07/12/2024 1:05 PM EST) Oxycodone Screen, Urine Positive Urine Urine specimen obtained by clean catch procedure / Unknown 07/12/2024 1:05 PM EST Leah Woods RN - 07/12/2024 1:05 PM EST UTOX cup Lot#[id number] Exp. 03/02/26 Internal Pass Control us Sindy Carlson MD POINT OF CARE TEST EN TER/EDIT ORDERABLES Final Result * FL Guidance in OR (06/27/2024 3:50 PM EST) Anatomical Region Laterality Modality X-Ray Angiograph y 06/27/2024 3:50 PM EST Narrative 06/28/2024 8:44 AM EST ? [facility] ?[address] ?[place] [address] ? Fluoroscopy Report ? Signed ? Patient: Junior Colon,Frantz ?MR#: [id number] ?? [id number] ? : 1950 ?Acct:[id number] ? Age/Sex: 74 / M ?ADM Date: 06/25/24 ? Loc: HO.S3 ?373-1 ? Attending Dr: Mimi Smith [employer] TECHNICIAN ? Ordering Physician: Amrik Garrett MD ?? Date of Service: 06/27/24 ?? Procedure(s): FL guidance in OR ?? Accession Number(s): [id number] ? cc: Sindy Obrien MD; Amrik Garrett [...] DD/ 1550 ? TD/TT: 06/27/24 1610 ? Library Attendant: ? Procedure Note Derik, Aminata - 06/28/[address] [address] Fluoroscopy Report Signed Patient: Frantz FinkMR#: [id number] : 1Acct:[id number] Age/Sex: 74 / MADM Date: 06/25/24 Loc: HO.S3 373-[address]: Mimi Smith [employer] TECHNICIAN Ordering Physician: Amrik Garrett MD Date of Service: 06/27/24 Procedure(s): FL guidance in OR Accession Number(s): [id number] cc: Sindy Obrien MD; Amrik Garrett MD [...] Dusty Henley MD 06/28/2024 08:42 AM EST RP Dictated By: Dusty Henley MD Signed By: <Electronically signed by Dusty Henley MD in OV> 06/28/24 0842 DD/ 1550 TD/TT: 06/27/24 1610 Library Attendant: [facility] External Provider IMG IR PROCEDURES Edited Result - Final * Slide Review (06/25/2024 3:25 PM EST) Slide Review VERIFIED [facility] 06/25/2024 3:25 PM EST 06/25/2024 3:28 PM EST Generic External Data Provider LAB BLOOD ORDERAB LES Final Result [facility] [address] [place] [phone] * High Sensitivity Troponin I (06/25/2024 3:25 PM EST) Pathologist [facility] TROPONIN I HIGH SENSITIVITY 5.9 <3.5 - 35.0 ng/L [facility] Comment:The Mason high sens itivity Troponin-I results should beused in conjunction with other diagnostic information suchas ECG, clinical observations and information, and patientsymptoms to aid in the diagnosis of [place]. 06/25/2024 3:25 PM EST 06/25/2024 3:28 PM EST us Generic External Data Provider LAB BLOOD ORDERAB LES Final Result [facility] [address] [place] [phone] * (ABNORMAL) CBC auto differential (06/25/2024 3:25 PM EST) Only the most recent of3 resultswithin the time period is included. White Blood Count 17.4(H) 4.8 - 10.8 X10*3/uL [facility] Red Blood Count 4.33(L) 4.60 - 5.80 X10*6/uL [facility] Hemoglobin 12.4(L) 14.0 - 18.0 g/dl [facility] Hematocrit 36.3(L) 42.0 - 52.0 % [facility] Mean Corpuscular Volume 83.8 80.0 - 98.0 fL [facility] Mean Corpuscular Hemoglobin 28.6 27.0 - 33.0 pg [facility] Mean Corpuscular HGB Conc 34.2 31.0 - 36.0 g/dl [facility] Red Cell Distribution Width 16.4(H) 11.0 - 16.0 % [facility] Platelet Count 332 160 - 400 X10*3/uL [facility] Mean Platelet Volume 9.6 9.4 - 12.4 fL [facility] Neutrophils Percent Auto 64.8 45 - 73 % [facility] Imm Gran Pct Auto 0.9(H) 0.0 - 0.4 % [facility] Lymphocytes Percent Auto 23.2 20 - 40 % [facility] Monocytes Percent Auto 10.4 2 - 11 % [facility] Eosinophils Percent Auto 0.5 0 - 4 % [facility] Basophils Percent Auto 0.2 0 - 2 % [facility] NRBC Pct Auto 0.0 0.0 - 0.2 /100WBC [facility] Neutrophils Absolute Auto 11.3(H) 2.0 - 8.3 x10*3/uL [facility] Imm Gran Abs Auto 0.16(H) 0.00 - 0.03 X10*3/uL [facility] Lymphocytes Absolute Auto 4.0 1.2 - 4.9 X10*3/uL [facility] Monocytes Absolute Auto 1.8(H) 0.1 - 1.2 X10*3/uL [facility] Eosinophils Absolute Auto 0.1 0.0 - 0.4 X10*3/uL [facility] Basophils Absolute Auto 0.0 0.0 - 0.2 X10*3/uL [facility] NRBC Abs Auto 0.000 0.0 - 0.012 X10*3/uL [facility] 06/25/2024 3:25 PM EST 06/25/2024 3:28 PM EST Generic External Data Provider LAB BLOOD ORDERAB LES Edited Result - Final Performing Organization Address City/[facility]/ZIP Co de Phone Number [facility] [address] [place] [phone] * Magnesium (06/25/2024 3:25 PM EST) Magnesium 2.1 1.6 - 2.6 mg/dL [facility] 06/25/2024 3:25 PM EST 06/25/2024 3:[address] External Data Provider LAB BLOOD ORDERAB LES Final Result Performing Organization Address [facility] Co de Phone Number [facility] [address] [place] [phone] * Lipase (06/25/2024 3:25 PM EST) Only the most recent of2 resultswithin the time period is included. Lipase 14 8 - 78 U/L [facility] 06/25/2024 3:25 PM EST 06/25/2024 3:28 PM EST Generic External Data Provider LAB BLOOD ORDERAB LES Final Result Performing Organization Address [facility] Co de Phone Number [facility] [address] [place] [phone] * Hepatic Function Panel (06/25/2024 3:25 PM EST) Only the most recent of2 resultswithin the time period is included. Bilirubin, Total 0.3 0.0 - 1.0 mg/dL [facility] Bilirubin, Direct 0.1 0.0 - 0.5 mg/dL [facility] Aspartate Amino Transferase 21 5 - 37 U/L [facility] Alanine Aminotransferase 20 0 - 40 U/L [facility] Total Protein 7.3 6.5 - 8.0 g/dL [facility] Albumin Level 3.7 3.5 - 5.0 g/dL [facility] Alkaline Phosphatase 59 39 - 117 U/L [facility] 06/25/2024 3:25 PM EST 06/25/2024 3:28 PM EST us Generic External Data Provider LAB BLOOD ORDERAB LES Final Result Performing Organization Address [facility]/ZIP Co de Phone Number [facility] [address] [place] [phone] * (ABNORMAL) Basic Metabolic Panel (06/25/2024 3:25 PM EST) Sodium 136 135 - 145 mmol/L [facility] Potassium 4.2 3.3 - 5.1 mmol/L [facility] Chloride 104 96 - 108 mmol/L [facility] Carbon Dioxide 22 22 - 29 mmol/L [facility] Anion Gap 14 12 - 20 [facility] Urea Nitrogen (BUN) 28(H) 9 - 16 mg/dL [facility] Creatinine, Serum 1.32 0.5 - 1.4 mg/dL [facility] Creatinine Clr Calc Pharmacy 44.1 [facility] Comment:eGFR (calculated fro m the MDRD study equation) and eCrCl(calculated from the Cockcroft-Gault equation) are based ondifferent parameters and may not yield comparable results.If eCrCl result is absurd, please check patient'sheight/weight. Estimated Glomerular Filt Rate 53 [facility] Comment:Chronic Kidney Disea se: Estimated GFR < 60 mL/min/[id number] Kidney Disease: Estimated GFR < 15 mL/min/1.73m2 Glucose 268(H) 60 - 115 mg/dL [facility] Calcium 9.0 8.4 - 10.2 mg/dL [facility] 06/25/2024 3:25 PM EST 06/25/2024 3:28 PM EST Generic External Data Provider LAB BLOOD ORDERAB LES Final Result Performing Organization Address City/[facility]/ZIP Co de Phone Number [facility] [address] [place] [address] [phone] * Lactic Acid (06/25/2024 3:24 PM EST) Only the most recent of2 resultswithin the time period is included. Lactic Acid 1.3 0.5 - 2.0 mmol/L [facility] 06/25/2024 3:24 PM EST 06/25/2024 3:28 PM EST us Generic External Data Provider LAB BLOOD ORDERAB LES Final Result Performing Organization Address City/[facility]/ZIP Co de Phone Number [facility] [address] [place] [phone] * (ABNORMAL) Urinalysis, Complete, with Reflex to Culture (06/24/2024 3:39 PM EST) Color Urine Yellow [facility] Appearance Urine Cloudy [facility] PH 5.5 5.0 - 9.0 [facility] Glucose Urine UA >=1000(A) Negative mg/dL [facility] Urine Blood Large (3+)(A) Negative [facility] Specific [place] - Urine >=1.030(H) 1.005 - 1.025 [facility] Urine Protein 30 (1+)(A) Neg-Trace mg/dL [facility] Urine Ketones Negative Negative mg/dL [facility] Nitrite Urine Negative Negative [facility] Leukocyte Esterase Urine Trace(A) Negative [facility] RBC Urine >20(A) 0 - 2 /HPF [facility] Urine WBC 11-20(A) 0 - 5 /HPF [facility] Urine Squamous Epithelial Cell 0-2 0 - 2 /HPF [facility] Urine Bacteria None Seen None Seen [facility] Hyaline Casts, Urine 0-2 0 - 2 /LPF [facility] 06/24/2024 3:39 PM EST 06/24/2024 3:41 PM EST [facility] - 06/24/2024 4:00 PM EST [id number], Clean Catch Generic External Data Provider LAB URINE ORDERAB LES Final Result Performing Organization Address [facility]/ZIP Co de Phone Number [facility] [address] [place] [address] [phone] * Culture, Urine, Routine (06/24/2024 3:39 PM EST) Urine Urine specimen obtained by clean catch procedure / Unknown 06/24/2024 3:39 PM EST 06/24/2024 4:29 PM EST Comment:UACC Narrative [facility] - 06/26/2024 11:47 AM EST Coag negative Staphylococcus Quant 50,000 to 100,000 cfu/mL Susc N/A Susceptibility not routinely performed on this isolate. Specimen Source: Urine clean catch Generic External Data Provider LAB MICROBIOLOGY - GENERAL ORDERABLES Final Result [facility] [address] [place] [phone] * Blood Culture (First) (06/24/2024 3:24 PM EST) Blood Venous blood specimen / Unknown 06/24/2024 3:24 PM EST 06/24/2024 3:29 PM EST Comment:Blood [facility] - 06/29/2024 5:29 PM EST Blood Culture (First) No growth after 5 days. Specimen Source: Blood Generic External Data Provider LAB MICROBIOLOGY - GENERAL ORDERABLES Final Result Performing Organization Address City/[facility]/ZIP Co de Phone Number [facility] [address] [place] [address] [phone] * Blood Culture (Second) (06/24/2024 3:24 PM EST) Blood Venous blood specimen / Unknown 06/24/2024 3:24 PM EST 06/24/2024 3:29 PM EST Comment:Blood [facility] - 06/26/2024 8:43 AM [...] GENERAL ORDERABLES Final Result Performing Organization Address City/[facility]/ZIP Co de Phone Number [facility] [address] [place] [phone] * CT Abdomen Pelvis w/o Contrast (06/24/2024 1:21 PM EST) Anatomical Region Laterality Modality Body, Pelvis, Abdomen Computed T omography 06/24/2024 1:21 PM EST Narrative 06/24/2024 2:15 PM EST ? [facility] ?[address] ?[place] [address] ? CT Scan Report ? Signed ? Patient: Junior Colon,Frantz ?MR#: [id number] ?? [id number] ? : 1950 ?Acct:[id number] ? Age/Sex: 74 / M ?ADM Date: 06/24/24 ? Loc: HO.ED ? Attending Dr: ? Ordering Physician: Lissette Staley DO ?? Date of Service: 06/24/24 ?? Procedure(s): CT abdomen pelvis wo IV con ?? Accession Number(s): [id number] ? cc: Sindy Obrien MD; Lissette Staley DO ? Report Number: ?? [id number]: Total DLP = ??481.00 mGy-cm ?? EXAMINATION: [...] DD/ 1321 ? TD/TT: 06/24/24 1358 ? Library Attendant: ? Procedure Note Hernánraghuphillyesicater, Image - 06/24/[address] [place] [address] [address] Scan Report Signed Patient: Frantz FinkMR#: [id number] : 1950cct:[id number] Age/Sex: 74 / MADM Date: 06/24/24 Loc: HO.ED Attending Dr: Ordering Physician: Lissette Staley DO Date of Service: 06/24/24 Procedure(s): CT abdomen pelvis wo IV con Accession Number(s): [id number] cc: Sindy Obrien MD; Lissette Staley DO Report Number: [id number]: Total DLP = 481.00 mGy-cm EXAMINATION: CT [...] 06/24/24 1412 DD/ 1321 TD/TT: 06/24/24 1358 Library Attendant: [facility] External Provider IMG CT PROCEDURES Edited Result - Final * (ABNORMAL) Comprehensive Metabolic Panel (06/24/2024 10:08 AM EST) Sodium 137 135 - 145 mmol/L [facility] Potassium 4.8 3.3 - 5.1 mmol/L [facility] Chloride 105 96 - 108 mmol/L [facility] Carbon Dioxide 26 22 - 29 mmol/L [facility] Anion Gap 11(L) 12 - 20 [facility] Urea Nitrogen (BUN) 25(H) 9 - 16 mg/dL [facility] Creatinine, Serum 1.42(H) 0.5 - 1.4 mg/dL [facility] Creatinine Clr Calc Pharmacy 42.2 [facility] Comment:eGFR (calculated fro m the MDRD study equation) and eCrCl(calculated from the Cockcroft-Gault equation) are based ondifferent parameters and may not yield comparable results.If eCrCl result is absurd, please check patient'sheight/weight. Estimated Glomerular Filt Rate 49 [facility] Comment:Chronic Kidney Disea se: Estimated GFR < 60 mL/min/[id number] Kidney Disease: Estimated GFR < 15 mL/min/1.73m2 Glucose 314(H) 60 - 115 mg/dL [facility] Calcium 9.4 8.4 - 10.2 mg/dL [facility] Bilirubin, Total 0.4 0.0 - 1.0 mg/dL [facility] Aspartate Amino Transferase 19 5 - 37 U/L [facility] Alanine Aminotransferase 24 0 - 40 U/L [facility] Total Protein 8.0 6.5 - 8.0 g/dL [facility] Albumin Level 4.0 3.5 - 5.0 g/dL [facility] Alkaline Phosphatase 66 39 - 117 U/L [facility] 06/24/2024 10:0 8 AM EST 06/24/2024 10:15 AM EST us Generic External Data Provider LAB BLOOD ORDERAB LES Final Result Performing Organization Address [facility]/ZIP Co de Phone Number [facility] [address] [place] [phone] * (ABNORMAL) Vitamin B12 (Cobalamin) and Folate Panel, Serum (06/10/2024 11:29 AM EST) Vitamin B12 1,359(H) 200 - 900 pg/mL [facility] Comment:NORMAL 200-900 PG/ML INDETERMINATE 160-199 PG/ML DEFICIENT < 160 PG/ML Folate 17.5 > or = 4.0 ng/mL [facility] Comment:Reference Values:> o r = 4.0 [...] BLOOD ORDERABLES Final Result Performing Organization Address City/[facility]/ZIP Co de Phone Number [facility] [address] [place] [address] [phone] * TSH with Reflex to Free T4 (06/10/2024 11:29 AM EST) TSH reflex Free T4 1.22 0.32 - 4.0 uIU/mL [facility] Blood Venous blood specimen / Unknown 06/10/2024 11:29 AM EST 06/10/2024 1:07 PM EST us Sindy Carlson MD LAB BLOOD ORDERABLES Final Result Performing Organization Address [facility] Co de Phone Number [facility] [address] [place] [address] [phone] * Hepatitis Panel, General (06/10/2024 11:29 AM EST) Hepatitis A IgM Nonreactive Nonreactive [facility] Comment:IgM antibodies to MCCARTHY V not detected; does not exclude earlyacute or recovered HAV infection. ~Hepatitis B Surface Antibody NONREACTIVE Nonreactive [facility] Comment:Nonreactive: < 8.00 mIU/mL Hepatitis B Core Antibody Nonreactive Nonreactive [facility] Hepatitis C Antibody Nonreactive Nonreactive [facility] Comment:Antibodies to HCV no t detected; does not exclude early acuteHCV infection. Hepatitis B Surface Ag Negative Negative [facility] Blood Venous blood specimen / Unknown 06/10/2024 11:29 AM EST 06/10/2024 1:07 PM EST us Sindy Carlson MD LAB BLOOD ORDERABLES Final Result Performing Organization Address [facility] de Phone Number [facility] [address] [place] [address] [phone] * Iron And Total Iron Binding Capacity (06/10/2024 11:29 AM EST) Iron 65 45 - 160 mcg/dL [facility] Total Iron Binding Capacity 283 228 - 428 mcg/dL [facility] Percent Iron Saturation 23 15 - 50 % [facility] Unsaturated Iron Binding 218 ug/dL [facility] Blood Venous blood specimen / Unknown 06/10/2024 11:29 AM EST 06/10/2024 1:07 PM EST us Sindy Carlson MD LAB BLOOD ORDERABLES Final Result Performing Organization Address City/[facility] Co de Phone Number [facility] [address] [place] [address] [phone] * RPR (Monitor) with Reflex to??Titer (06/10/2024 11:29 AM EST) Pathologist [facility] RPR (Monitor) w/Refl Titer NON-REACTI VE NON-REACT CRISPIN [facility] Comment:THIS TEST WAS PERFOR MED AT:[facility] [place] [address] [phone] SINHA MD Rapid Plasma Reagin Ab Titer TNP [facility] Blood Venous blood specimen / Unknown 06/10/2024 11:29 AM EST 06/10/2024 1:07 PM EST Sindy Carlson MD LAB BLOOD ORDERABLES Final Result [facility] [address] [place] [address] [phone] * Ferritin (06/10/2024 11:29 AM EST) [facility] Ferritin 89 20 - 250 ng/mL [facility] Blood Venous blood specimen / Unknown 06/10/2024 11:29 AM EST 06/10/2024 1:07 PM EST Sindy Carlson MD LAB BLOOD ORDERABLES Final Result Performing Organization Address City/[facility]/ZIP Co de Phone Number [facility] [address] [place] [address] [phone] * Hm Colonoscopy (01/23/2023) Historical Provider HEALTH MAINTENANCE Final Result * (ABNORMAL) LIPID PANEL, STANDARD (12/30/2021 9:07 AM EDT) [facility] Chol/HDLC Ratio 3.8 <5.0 (calc) [facility] [...] ?? Cory LYLES et al. LILY. 2013;310(19): 6951-2721 ?? ([email or web address]) Non-HDL Cholesterol 85 <130 mg/dL (calc) [facility] Comment: For patients with diabetes plus 1 major ASCVD risk ?? factor, treating to a non-HDL-C goal of <100 mg/dL ?? (LDL-C of <70 mg/dL) is considered a therapeutic ?? option. Triglycerides 129 <150 mg/dL [facility] 12/30/2021 9:07 AM EDT us Sindy Carlson MD LAB BLOOD ORDERABLES Final Result Performing Organization Address [facility] de Phone Number [facility] [address] * (ABNORMAL) OCCULT BLOOD STOOL X3 (06/28/2019 12:00 AM EST) OCCULT BLOOD STOOL-1 NEG NEG [facility] OCCULT BLOOD STOOL-1 DATE 06/25/19 [facility] OCCULT BLOOD STOOL-2 POS(AA) NEG [facility] OCCULT BLOOD STOOL-2 DATE 06/26/19 [facility] OCCULT BLOOD STOOL-3 POS(AA) NEG [facility] OCCULT BLOOD STOOL-3 DATE 06/28/19 [facility] 06/28/2019 us Sindy Carlson MD HISTORICAL/NON ORDERA BLE LABS Final Result Performing Organization Address [facility] Co de Phone Number [facility] [address] from Last 3 Months or Most Recently Relevant to Health Maintenance Insurance [facility] Care Teams Ensemble Member Relationship Specialty Start Date End Date Sindy Obrien MD [address] [place] [phone] PCP - General Family Medicine 03/28/19
--- OUTSIDE RECORDS SUMMARY | 2024-09-07 14:26 | XMS_ITS | Encounter Summary ---
Author Organization [employer] Address [address] [facility] 7t [place] [address] Care Team Providers Care Air Brake Operator Name Role Phone Sindy Obrien MD Primary Care Provide r Reason for Visit * Reason Comments hospital follow up Encounter Details Date Type Department Care Team ([facility] st Contact Info) Description 09/06/2024 1:15 PM EDT Office Visit [facility] [address] [place] [address] Sindy Obrien MD [address] [place] [address] Type 2 diabetes mellitus with hyperglycemia, with long-term current use of insulin ([facility]) (Primary Dx); HTN (hypertension), benign; Primary hypertension; Depressive disorder; Routine health maintenance; Kidney stones Social History Tobacco Use Types Packs/Day Years [...] is your housing situation today? I have amrjan montelongo 11/13/[address] you [...] Mass Index 31.64 09/06/2024 1:23 PM EDT documented in this encounter Progress Notes * Sindy Carlson MD - 09/06/2024 1:15 PM EDT SUBJECTIVE: Frantz Mccormack is a 74 y.o. year old male who presents [place] [facility] [place] Patient presented to the ED the day prior due to abdominal pain. Workup was concerning for hydronephrosis, however UA was negative, patient was started on tamsulosin, and discharged home. Patient returned to the ED, as blood culture came back positive for gram positive cocci and MRSA. Patient was admitted for bacteremia, in which they were started on vancomycin and Zosyn. Urology consulted, and the patient underwent right stent replacement, with instructions to follow outpatient in 2 weeks for stent removal. Patient was transitioned from vancomycin and Zosyn to IV ceftriaxone for UTI. Incidental findings of a 1.2 cm lesion of the left liver, instructed to follow with oncology outpatient for additional workup and imaging. Discharged home. No medication changes occurred during hospitalization Patient reports he is back to his baseline regarding his gait urinary habits denies any urinary frequency, dysuria, fever, malaise reports he has urology appointment tomorrow (September 07, 2024) and he is he also has a nephrology appointment next month Acute Concerns: Patient today main complaint is is recurrent pain of his right shoulder his frustrated because he cannot get his surgery due to his elevated A1c he is asking for me to refer him to another surgeon who will accept this sugars I explained to him this is not a good idea because he needs good healing after the surgery and this needs to be under good glucose levels Patient's blood pressure today is elevated patient explains he is really anxious today because he has a court appointment today Social History Social History Narrative Not on file Patient Active Problem List Diagnosis HTN (hypertension), benign Acute renal failure syndrome (CMS/HCC) Carcinoma of stomach (CMS/HCC) Cataract Cervical radiculopathy Chronic kidney disease Depressive disorder Diabetic glomerulonephritis (CMS/HCC) Epigastric pain Gastrointestinal stromal tumor (CMS/HCC) Hydrocele of testis Iron deficiency anemia due to chronic blood loss Lung mass Malignant tumor of stomach (CMS/HCC) Obesity Rash Streptococcal sore throat Hypertension Low back pain radiating to lower extremity Type 2 diabetes mellitus with hyperglycemia, with long-term current use of insulin (CMS/HCC) Intertrigo Chronic right shoulder pain Preop examination Vestibular disorder, unspecified laterality Kidney stones No family history on file. Review of Systems Constitutional: Negative. HENT: Negative. Respiratory: Negative. Cardiovascular: Negative. Musculoskeletal: Positive for arthralgias. OBJECTIVE: Vitals: 09/06/24 1323 BP: (!) 159/102 BP Location: Left arm Patient Position: Sitting BP Cuff Size: Large adult Pulse: 78 Resp: 20 Temp: 97.8 ??F (36.6 ??C) TempSrc: Temporal SpO2: 98% Weight: 178 lb 9.6 oz (81 kg) Height: 5' 3 (1.6 m) Physical Exam Constitutional: Appearance: Normal appearance. Cardiovascular: Rate and Rhythm: Normal rate and regular rhythm. Pulmonary: Effort: Pulmonary effort is normal. Breath sounds: Normal breath sounds. Abdominal: General: Abdomen is flat. Palpations: Abdomen is soft. Musculoskeletal: General: Tenderness present. Neurological: Mental Status: He is alert. Follow Up: No follow-ups on file. Current Outpatient Medications on File Prior to Visit Medication Sig Dispense Refill Acetaminophen Extra Strength 500 MG tablet TAKE 1 TABLET BY MOUTH EVERY 6 HOURS NEEDED MILD PAIN30 tablet 0 Alcohol Swabs 70 % pads Use to test blood sugar three times daily Continuous Blood Gluc Banana Carrier (FreeStyle Antione 2 [place]) device Scan sensor every 8 hours 1 each 0 Continuous Glucose Banana Carrier (FreeStyle Antione 2 [place]) device Scan sensor every 8 hours 1 each 0 Continuous Glucose Sensor (FreeStyle Antione 2 Sensor) misc USE TO TEST BLOOD SUGAR. CHANGE EVERY 14 DAYS 2 each 2 Continuous Glucose Sensor (FreeStyle Antione 2 Sensor) misc Apply 1 sensor every 14 days 2 each 1 dapagliflozin (Farxiga) 10 MG Take 1 tablet (10 mg) by mouth Once per day. 30 tablet 11 ferrous sulfate 325 (65 Fe) MG tablet Take by mouth every 12 (twelve) hours. FREESTYLE LITE test strip TEST BLOOD SUGAR THREE TIMES DAILY 100 strip 11 glucose blood (FreeStyle Precision Irwin Test) test strip Use to test blood sugar 3 times daily 100 each 1 insulin pen needle (BD Pen Needle Candie U/F) 32G x 4 mm misc USE DIRECTED ONCE DAILY 100 each 12 methocarbamol (Robaxin) 500 MG tablet TAKE 1 TABLET BY MOUTH EVERY DAY NEEDED FOR MUSCLE SPASMS 30 tablet 0 naloxone (Narcan) 4 mg/0.1 mL nasal spray Administer 1 spray (4 mg) into affected nostril(s) if needed for opioid reversal. May repeat every 2-3 minutes if needed, alternating nostrils, until medicalassistance becomes available. 2 each 3 oxyCODONE (Roxicodone) 5 MG immediate release tablet Take 1 tablet (5 mg) by mouth every 8 (eight) hours if needed for severe pain for up to 28 days. 84 tablet 0 tamsulosin (Flomax) 0.4 MG 24 hr capsule Take 1 capsule by mouth Once per day. TRUEplus Lancets 33G misc TEST BLOOD SUGAR THREE TIMES DAILY 100 each 11 [DISCONTINUED] amLODIPine (Norvasc) 10 MG tablet Take 1 tablet (10 mg) by mouth in the morning. 90 tablet 1 [DISCONTINUED] atorvastatin (Lipitor) 20 MG tablet Take 1 tablet (20 mg) by mouth in the morning. 90 tablet 1 [DISCONTINUED] carvedilol (Coreg) 12.5 MG tablet TAKE 1 TABLET BY MOUTH TWICE DAILY IN THE MORNING AND IN THE EVENING WITH FOOD 60 tablet 3 [DISCONTINUED] cyanocobalamin (Vitamin B-12) 1000 MCG tablet Take 1 tablet (1,000 mcg) by mouth in the morning. 90 tablet 1 [DISCONTINUED] glipiZIDE XL (Glucotrol XL) 10 MG 24 hr tablet TAKE 1 TABLET BY MOUTH TWICE DAILY INTHE MORNING AND IN THE EVENING 60 tablet 11 [DISCONTINUED] insulin glargine (Lantus SoloStar) 100 UNIT/ML pen INJECT 40 UNITS SUBCUTANEOUSLY EVERY MORNING AND INJECT 30 UNITS SUBCUTANEOUSLY EVERY EVENING 15 mL 3 [DISCONTINUED] mirtazapine (Remeron) 15 MG tablet TAKE 1 TABLET BY MOUTH AT BEDTIME 90 tablet 1 [DISCONTINUED] olmesartan (BENIcar) 5 MG tablet TAKE 1 TABLET BY MOUTH EVERY MORNING 90 tablet 0 No current facility-administered medications on file prior to visit. Problem List Items Addressed This Visit Type 2 diabetes mellitus with hyperglycemia, with long-term current use of insulin ([facility]) - Primary Diabetes is: not controlled - Lab Results [...] a day I instructed him to use [id number] units in the morning and at bedtime [...] appointment with me in October 28, 2024 Relevant Medications insulin lispro (HumaLOG KWIKPEN) 100 UNIT/ML injection insulin glargine (Lantus SoloStar) 100 UNIT/ML pen Other Relevant Orders POCT Glucose (Completed) HTN (hypertension), benign I advised low-sodium diet and weight reduction I advised to take his medications as prescribed without missing any dose all his refills are done today I advised to log his blood pressure at home and report back to me with readings, if blood pressure is persistently above 140/90 report back to me Patient also to be followed by pharmacy CDTM Relevant Medications amLODIPine (Norvasc) 10 MG tablet carvedilol (Coreg) 12.5 MG tablet atorvastatin (Lipitor) 20 MG tablet Hypertension Relevant Medications olmesartan (BENIcar) 5 MG tablet Depressive disorder Counseling done continue with mirtazapine 15 mg at bedtime Relevant Medications mirtazapine (Remeron) 15 MG tablet Kidney stones Do not miss appointment with urology and nephrology Other Visit Diagnoses Routine health maintenance Relevant Medications cyanocobalamin (Vitamin B-12) 1000 MCG tablet documented in this encounter Miscellaneous Notes * Assessment & Plan Note - Sindy Carlson MD - 09/06/2024 2:16 PM EDT Associated Problem(s): Kidney stones Do not miss appointment with urology and nephrology * Assessment & Plan Note - Sindy Carlson MD - 09/06/2024 2:15 PM EDT Associated Problem(s): Depressive disorder Counseling done continue with mirtazapine 15 mg at bedtime * Assessment & Plan Note - Sindy Carlson MD - 09/06/2024 2:15 PM EDT Associated Problem(s): Type 2 diabetes mellitus with hyperglycemia, with long- term current use of insulin ([facility]) Diabetes is: not controlled - Lab Results [...] a day I instructed him to use [id number] units in the morning and at bedtime [...] appointment with me in October 28, 2024 * Assessment & Plan Note - Sindy Carlson MD - 09/06/2024 2:13 PM EDT Associated Problem(s): HTN (hypertension), benign I advised low-sodium diet and weight reduction I advised to take his medications as prescribed without missing any dose all his refills are done today I advised to log his blood pressure at home and report back to me with readings, if blood pressure is persistently above 140/90 report back to me Patient also to be followed by pharmacy CDTM documented in this encounter Plan of Treatment Upcoming Encounters Date Type Department Care Team (Late st Contact Info) Description 09/07/2024 3:30 PM EDT Medication Management [facility] [address] [place] [address] Edgard Dasilva, PharmD [address] [place] [phone] 11/02/2024 10:15 AM EDT Office Visit [facility] [address] [place] [address] Sindy Obrien MD [address] [place] [address] 11/16/2024 2:00 PM EDT Clinical Support [address] [address] 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, MANSI documented as of this encounter Goals Goal Patient Goal Type Associated Problems Recent Progress Patient-Stated? Author Hemoglobin A1c < 8 Result Component 11.8( 10:23 AM EST) No Caroline Neri, Nithya documented as of this encounter Procedures Procedure Name Priority Date/Time Associated Diagnosis Comments POCT GLUCOSE Routine 09/06/2024 1:30 PM EDT Type 2 diabetes mellitus with hyperglycemia, with long-term current use of insulin ([facility]) documented in this encounter Results * POCT Glucose (09/06/2024 1:30 PM EDT) Glucose Blood, POC 137 60 - 200 mg/dL Blood Capillary blood specimen / Unknown 09/06/2024 1:30 PM EDT Sindy Carlson MD POINT OF CARE TEST EN TER/EDIT ORDERABLES Final Result documented in this encounter Visit Diagnoses Diagnosis Type 2 diabetes mellitus with hyperglycemia, with long-term current use of insulin ([facility])- Primary HTN (hypertension), benign Essential hypertension, benign Primary hypertension Unspecified essential hypertension Depressive disorder Depressive disorder, not elsewhere classified Routine health maintenance Unspecified examination Kidney stones Calculus of kidney documented in this encounter Additional Health Concerns Assessment Noted Time PHQ-9 Depression Total Score: 0 06/06/20 24 1:16 PM EST documented as of this encounter Care Teams Air Brake Operator Relationship Specialty Start Date End Date Sindy Obrien MD [address] [place] [phone] PCP - General Family Medicine 03/28/19 documented as of this encounter
--- OUTSIDE RECORDS SUMMARY | 2024-09-07 14:26 | XMS_ITS | Encounter Summary ---
Author Organization [employer] Address [address] [facility] 7t [place] [address] Care Team Providers Care Associate Buyer Name Role Phone Sindy Obrien MD Primary Care Provide r Encounter Details Date Type Department Care Team (Latest Contact Info) Description 09/06/2024 Travel Social History Tobacco Use Types Packs/Day [...] Description 09/07/2024 3:30 PM EDT Medication Management [address] [address] Edgard Dasilva, AtiyaD [address] [place] [address] 11/02/2024 10:15 AM EDT Office Visit [address] [address] Sindy Obrien MD [address] [place] [address] 11/16/2024 2:00 PM EDT Clinical Support [address] [address] 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, MANSI documented as of this encounter Goals Goal Patient Goal Type Associated Problems Recent Progress Patient-Stated? Author Hemoglobin A1c < 8 Result Component 11.8( 10:23 AM EST) No Caroline Neri PharmD documented as of this encounter Visit Diagnoses Not on filedocumented in this encounter Additional Health Concerns Assessment Noted Time PHQ-9 Depression Total Score: 0 06/06/20 24 1:16 PM EST documented as of this encounter Care Teams Associate Buyer Relationship Specialty Start Date End Date Sindy Obrien MD [address] [place] [address] [phone] PCP - General Family Medicine 03/28/19 documented as of this encounter
== END 2024-09-07 12:48 | disposition home or self-care (01) ==
LOC: HO.HKA 11:54
PROVIDERS: PCP Internal Medicine; Visit Provider Internal Medicine Nephrology
DX: N18.31 Chronic kidney disease, stage 3a (principal); N20.0 Calculus of kidney; I10 Essential (primary) hypertension
CPT/HCPCS: 99214

== ENCOUNTER → 2024-09-07 11:54 | Outpatient (BNVA) | payer OTHER, SELFPAY | PROVIDERS: PCP Internal Medicine; Visit Provider Internal Medicine Nephrology | DX: E11.22 Type 2 diabetes mellitus with diabetic chronic kidney disease (principal); I12.9 Hypertensive chronic kidney disease with stage 1 through stage 4 chronic kidney disease, or unspecified chronic kidney disease; N18.31 Chronic kidney disease, stage 3a; N20.0 Calculus of kidney | CPT/HCPCS: 99212 ==

== ENCOUNTER 2024-10-18 10:33 | Outpatient (REF) | payer OTHER, SELFPAY ==
--- NOTE | ~2024-10-18 | US_ITS ---
CLINICAL HISTORY: N20.0 - Calculus of kidney US renal Comparison: 01/13/2024 Findings: Right kidney 11.3 cm length. Left kidney 10.7 cm length. Bilateral renal cysts are noted. Largest measures 3.8 cm on the left. 3 mm nonobstructing midpole left stone. No bilateral hydronephrosis. Normal bilateral renal echogenicity. Impression: Nonobstructing left midpole stone This document has been electronically signed by: Enmanuel Dumont MD on 10/18/2024 19:12:53
--- OUTSIDE RECORDS SUMMARY | 2024-10-18 11:43 | XMS_ITS | Encounter Summary ---
Author Organization [employer] Address [address] [facility] [address] 7t [place] [address] Care Team Providers Care Director Of Outside Sales Name Role Phone Sindy Obrien MD Primary Care Provide r Reason for Visit * Reason Comments Med Refill Encounter Details Date Type Department Care Team ([facility] st Contact Info) Description 05/20/2024 Refill [facility] [address] [place], [place] [phone] Sindy Obrien MD [address] [place] [address] HTN (hypertension), benign; Type 2 diabetes mellitus with hyperglycemia, with long-term current use of insulin ([facility]) Social History Tobacco Use Types Packs/Day Years [...] Care Team (Late st Contact Info) Description 10/18/2024 2:00 PM EDT Medication Management [address] [address] Edgard Dasilva PharmD [address] [place] [address] 11/02/2024 10:15 AM EDT Office Visit [address] [address] Sindy Obrien MD [address] [place] [address] 11/16/2024 2:00 PM EDT Clinical Support [address] [address] 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 RN documented as of this encounter Goals Goal Patient Goal Type Associated Problems Recent Progress Patient-Stated? Author Hemoglobin A1c < 8 Result Component 11.8( 10:23 AM EST) No Caroline Neri PharmD documented as of this encounter Visit Diagnoses Diagnosis HTN (hypertension), benign Essential hypertension, benign Type 2 diabetes mellitus with hyperglycemia, with long-term current use of insulin ([facility]) documented in this encounter Additional Health Concerns Assessment Noted Time PHQ-9 Depression Total Score: 0 10/24/19 23 3:05 PM EDT documented as of this encounter Care Teams Director Of Outside Sales Relationship Specialty Start Date End Date Sindy Obrien MD [address] [place] [address] PCP - General Family Medicine 03/28/19 documented as of this encounter
--- OUTSIDE RECORDS SUMMARY | 2024-10-18 11:43 | XMS_ITS | Encounter Summary ---
Author Organization [employer] Address [address] [facility] [address] 7t [place] [address] Care Team Providers Care Financial Quantitative Analyst Name Role Phone Sindy Obrien MD Primary Care Provide r Reason for Visit * Reason Comments Med Refill Encounter Details Date Type Department Care Team ([facility] st Contact Info) Description 12/15/2023 Refill [facility] [address] [place] [address] Sindy Obrien MD [address] [place] [address] Chronic right shoulder pain Social History Tobacco [...] Description 10/18/2024 2:00 PM EDT Medication Management [address] [address] Edgard Dasilva, AtiyaD [address] [place] [address] 11/02/2024 10:15 AM EDT Office Visit [address] [address] Sindy Obrien MD [address] [place] [address] 11/16/2024 2:00 PM EDT Clinical Support [address] [address] 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 RN documented as of this [...] documented as of this encounter Care Teams Financial Quantitative Analyst Relationship Specialty Start Date End Date Sindy Obrien MD [address] [place] [phone] PCP - General Family Medicine 10/21/19 documented as of this encounter
--- OUTSIDE RECORDS SUMMARY | 2024-10-18 11:43 | XMS_ITS | Encounter Summary ---
Author Organization [employer] Address [address] [facility] [address] 7[address] [place] [address] Care Team Providers Care City Designer Name Role Phone Sindy Obrien MD Primary Care Provide r Reason for Visit * Reason Comments Med Refill Encounter Details Date Type Department Care Team ([facility] st Contact Info) Description 09/03/2023 Refill [facility] [address] [place] [address] Sindy Obrien MD [address] [place] [address] Chronic right shoulder pain Social History Tobacco [...] Description 10/18/2024 2:00 PM EDT Medication Management [address] [address] Edgard Dasilva, PharmD [address] [place] [address] 11/02/2024 10:15 AM EDT Office Visit [address] [address] Sindy Obrien MD [address] [place] [address] 11/16/2024 2:00 PM EDT Clinical Support [address] [address] 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 RN documented as of this encounter Visit Diagnoses Diagnosis Chronic right shoulder pain Pain in joint, shoulder region documented in this encounter Additional Health Concerns Assessment Noted Time PHQ-9 Depression Total Score: 0 10/24/19 23 3:05 PM EDT documented as of this encounter Care Teams City Designer Relationship Specialty Start Date End Date Sindy Obrien MD [address] [place] [phone] PCP - General Family Medicine 03/28/19 documented as of this encounter
--- OUTSIDE RECORDS SUMMARY | 2024-10-18 11:43 | XMS_ITS | Clinical Summary ---
Author Organization [facility] Address [address] [place] [address] Care Team Providers Care Tour Manager Name Role Phone Sindy Obrien MD [...] Colorectal Cancer Screening: Sigmoidoscopy 1999 Pneumococcal Vaccine: 50+ Ye ars (2 of 2 - PPSV23) 11/19/2017 09/24/2017 Diabetes: Ophthalmology Exam 03/26/2022 Diabetes: Pedal Pulse Checked 03/26/2022 Diabetes: Sensory Foot Exam 03/26/2022 Diabetes: Visual Foot Exam 03/26/2022 Diabetes: Hemoglobin A1C 10/12/2022 07/15/2022 Influenza Vaccine (Season Ended) 2025 Hepatitis B Vaccine Aged Out No longe r eligible based on patient's age to complete this [place] [address] ([id number]) [facility] ([id number]) KATHERINE EDWARDS [phone] Care Teams Tour Manager Relationship Specialty Start Date End Date Sindy Obrien MD [address] [place] [phone] PCP - General Internal Medicine 01/01/22
--- OUTSIDE RECORDS SUMMARY | 2024-10-18 11:43 | XMS_ITS | Encounter Summary ---
Author Organization [employer] Address [address] [facility] [address] 7[address] [place] [address] Care Team Providers Care Quarry Supervisor Dimension Stone Name Role Phone Sindy Obrien MD Primary Care Provide r Reason for Visit * Reason Onset Date Comments FYI 11/18/2023 Encounter Details Date Type Department Care Team ([facility] Contact Info) Description 11/18/2023 Telephone [facility] [address] [place] [address] Sindy Obrien MD [address] [place], [place] [phone] FYI Social History Tobacco Use Types Packs/Day [...] Description 10/18/2024 2:00 PM EDT Medication Management [address] [address] Edgard Dasilva, Nithya [address] [place] [address] 11/02/2024 10:15 AM EDT Office Visit [address] [address] Sindy Obrien MD [address] [place] [address] 11/16/2024 2:00 PM EDT Clinical Support [address] [address] 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, MANSI documented as of this [...] documented as of this encounter Care Teams Quarry Supervisor Dimension Stone Relationship Specialty Start Date End Date Sindy Obrien MD [address] [place] [address] PCP - General Family Medicine 03/28/19 documented as of this encounter
--- OUTSIDE RECORDS SUMMARY | 2024-10-18 11:43 | XMS_ITS | Encounter Summary ---
Author Organization [employer] Address [address] [facility] 7t [place] [address] Care Team Providers Care Epic Trainer Name Role Phone Sindy Obrien MD Primary Care Provide r Reason for Visit * Reason Comments Med Refill Encounter Details Date Type Department [facility] Description 10/29/2022 Refill [facility] [address] [place] [address] [facility] [address] [place] [address] Depressive disorder Social History Tobacco Use Types [...] Upcoming Encounters Date Type Department Care Team ([facility] Description 10/18/2024 2:00 PM EDT Medication Management [address] [address] Edgard Dasilva, PharmD [address] [place] [address] 11/02/2024 10:15 AM EDT Office Visit [address] [address] Sindy Obrien MD [address] [place] [phone] 11/16/2024 2:00 PM EDT Clinical Support [address] [phone] 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 RN documented as of this encounter Visit Diagnoses Diagnosis Depressive disorder Depressive disorder, not elsewhere classified documented in this encounter Additional Health Concerns Assessment Noted Time PHQ-9 Depression Total Score: 0 10/24/19 23 3:05 PM EDT documented as of this encounter Care Teams Epic Trainer Relationship Specialty Start Date End Date Sindy Obrien MD [address] [place] [phone] PCP - General Family Medicine 03/28/19 documented as of this encounter
--- OUTSIDE RECORDS SUMMARY | 2024-10-18 11:43 | XMS_ITS | Encounter Summary ---
Author Organization [employer] Address [address] [facility] [address] 7[address] [place] [address] Care Team Providers Care Cow Tester Name Role Phone Sindy Obrien MD Primary Care Provide r Reason for Visit * Reason Comments Med Refill Encounter Details Date Type Department Care Team ([facility] st Contact Info) Description 06/02/2023 Refill [facility] [address] [place] [address] Sindy Obrien MD [address] [place] [address] Vitamin D deficiency, unspecified Social History Tobacco [...] Description 10/18/2024 2:00 PM EDT Medication Management [address] [address] Edgard Dasilva, PharmD [address] [place] [address] 11/02/2024 10:15 AM EDT Office Visit [address] [address] Sindy Obrien MD [address] [place] [address] 11/16/2024 2:00 PM EDT Clinical Support [address] [address] 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, MANSI documented as of this encounter Visit Diagnoses Diagnosis Vitamin D deficiency, unspecified documented in this encounter Additional Health Concerns Assessment Noted Time PHQ-9 Depression Total Score: 0 10/24/19 23 3:05 PM EDT documented as of this encounter Care Teams Cow Tester Relationship Specialty Start Date End Date Sindy Obrien MD [address] [place] [phone] PCP - General Family Medicine 03/28/19 documented as of this encounter
--- OUTSIDE RECORDS SUMMARY | 2024-10-18 11:43 | XMS_ITS | Encounter Summary ---
Author Organization [employer] Address [address] [facility] 7t [place] [address] Care Team Providers Care Panel Beater Name Role Phone Sindy Obrien MD Primary Care Provide r Encounter Details Date Type Department Care Team ([facility] Contact Info) Description 02/13/2023 Orders Only [facility] [address] [place] [phone] Provider, MD Oren Social History Tobacco Use [...] Upcoming Encounters Date Type Department Care Team ([facility] Contact Info) Description 10/18/2024 2:00 PM EDT Medication Management [facility] [address] [place] [phone] Edgard Dasilva, PharmD [address] [place] [address] 11/02/2024 10:15 AM EDT Office Visit [facility] [address] [place] [address] [phone] Sindy Obrien MD [address] [place] [address] 11/16/2024 2:00 PM EDT Clinical Support [facility] [address] [place] [address] 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, RN documented as of this [...] documented as of this encounter Care Teams Panel Beater Relationship Specialty Start Date End Date Sindy Obrien MD [address] [place] [address] [phone] PCP - General Family Medicine 03/28/19 documented as of this encounter
--- OUTSIDE RECORDS SUMMARY | 2024-10-18 11:43 | XMS_ITS | Encounter Summary ---
Author Organization [employer] Address [address] [facility] [address] 7t [place] [address] Care Team Providers Care Automobile Sales Representative Name Role Phone Sindy Obrien MD Primary Care Provide r Encounter Details Date Type Department Care Team ([facility] st Contact Info) Description 09/03/2023 Orders Only [facility] [address] [place] [address] Sindy Obrien MD [address] [place] [address] Chronic right shoulder pain (Primary Dx) Social [...] Description 10/18/2024 2:00 PM EDT Medication Management [address] [address] Edgard Dasilva, PharmD [address] [place] [phone] 11/02/2024 10:15 AM EDT Office Visit [address] [address] Sindy Obrien MD [address] [place] [address] [phone] 11/16/2024 2:00 PM EDT Clinical Support [address] [address] 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 RN documented as of this [...] EDT Narrative 09/08/2023 11:17 AM EDT ? [facility] ?[address] ?[place] [address] ? CT Scan Report ? Signed ? Patient: Junior Colon,Frantz ?MR#: [id number] ?? [id number] ? : 1950 ?Acct:[id number] ? Age/Sex: 73 / M ?ADM Date: 09/07/23 ? Loc: HO.CT ? Attending Dr: Christa Ferrera MD ? Ordering Physician: Christa Ferrera MD ?? Date of Service: 09/07/23 ?? Procedure(s): CT chest w IV con ?? Accession Number(s): [id number] ? cc: Sindy Obrien MD; Christa Ferrera [...] DLP: ?? 392 mGy-cm ? FINDINGS: ? BLOCKING MACHINE OPERATOR SECOND: Enlarged superior mediastinum. Clear lungs. Nonobstructive bowel [...] 1113 ? DD/ 1227 ? TD/TT: ? Welding Robot Operator: ? Procedure Note Donotuseinterpreter, Image - 09/08/[address] [address] [address] Scan Report Signed Patient: Tysno Fink#: [id number] : 1950cct:[id number] Age/Sex: 73 / MADM Date: 09/07/23 Loc: HO.CT Attending Dr: Christa Ferrera MD Ordering Physician: Christa Ferrera MD Date of Service: 09/07/23 Procedure(s): CT chest w IV con Accession Number(s): [id number] cc: Sindy Obrien MD; Christa Ferrera MD [...] technique TOTAL EXAM DLP: 392 mGy-cm FINDINGS: BLOCKING MACHINE OPERATOR SECOND: Enlarged superior mediastinum. Clear lungs. Nonobstructive bowel [...] in OV> 09/08/23 1113 DD/ 1227 TD/TT: Welding Robot Operator: us [facility] External Provider IMG CT PROCEDURES Final Result * Stress test with myocardial perfusion (09/04/2023 8:15 AM EDT) 09/04/2023 8:15 AM EDT Narrative [facility] - 09/04/2023 3:44 PM EDT ? [facility] ?[address] ?[place] [address] ?Nuclear Medicine Report ? Signed ? Patient: Junior Colon,Frantz ?MR#: [id number] ?? [id number] ? : 1950 ?Acct:[id number] ? Age/Sex: 73 / M ?ADM Date: 09/03/23 ? Loc: HO.CARD ? Attending Dr: Amanda SCOTT ? Ordering Physician: Amanda De La Paz ?? Date of Service: 09/03/23 ?? Procedure(s): NM cardiolite stress test ?? Accession Number(s): [id number] ? cc: Sindy Obrien MD; Amanda De [...] 1540 ? DD/ 0815 ? TD/TT: ? Welding Robot Operator: ? Procedure Note Aminata More - 09/04/[address] [address] Nuclear Medicine Report Signed Patient: Frantz FinkMR#: [id number] : 1Acct:[id number] Age/Sex: 73 / MADM Date: 09/03/23 Loc: [place] Attending Dr: Amanda De La Paz NP-Denia Ordering Physician: Amanda De La Paz Date of Service: 09/03/23 Procedure(s): NM cardiolite stress test Accession Number(s): [id number] cc: Sindy Obrien MD; Amanda De La [...] in OV> 09/04/23 1540 DD/ 0815 TD/TT: Welding Robot Operator: [facility] External Provider CV STRE SS PROCEDURES Edited Result - Final [facility] [address] [place] [address] documented in this encounter Visit Diagnoses Diagnosis Chronic right shoulder pain- Primary Pain in joint, shoulder region documented in this encounter Additional Health Concerns Assessment Noted Time PHQ-9 Depression Total Score: 0 10/24/19 23 3:05 PM EDT documented as of this encounter Care Teams Automobile Sales Representative Relationship Specialty Start Date End Date Sindy Obrien MD [address] [place] [phone] PCP - General Family Medicine 03/28/19 documented as of this encounter
--- OUTSIDE RECORDS SUMMARY | 2024-10-18 11:43 | XMS_ITS | Clinical Summary ---
Author Organization [employer] Address [address] [facility] 7t [place] [address] Care Team Providers Care Implementation Architect Name Role Phone Sindy Obrien MD Primary Care Provide r Allergies No known active allergies Medications ferrous sulfate 325 (65 Fe) MG tablet Take by mouth every 12 (twelve) hours. Active Alcohol Swabs 70 % pads Use to test blood sugar three times daily Active methocarbamol (Robaxin) 500 MG tabletIndicatio ns:Chronic right shoulder pain TAKE 1 TABLET BY MOUTH EVERY DAY NEEDED FOR MUSCLE SPASMS 30 tablet 024 Active naloxone (Narcan) 4 mg/0.1 mL nasal sprayIndication s:Chronic right shoulder pain Administer 1 spray (4 mg) into affected nostril(s) if needed for opioid reversal. May repeat every 2-3 minutes if needed, alternating nostrils, until medical assistance becomes available. 2 each 3 024 2024 Active dapagliflozin (Farxiga) 10 MGIndications:T ype 2 diabetes mellitus with hyperglycemia, with long-term current use of insulin ([facility]) Take 1 tablet (10 mg) by mouth Once per day. 30 tablet 11 024 2024 Active amLODIPine (Norvasc) 10 MG tabletIndicatio ns:HTN (hypertension), benign Take 1 tablet (10 mg) by mouth in the morning. 90 tablet 1 025 Active carvedilol (Coreg) 12.5 MG tabletIndicatio ns:HTN (hypertension), benign TAKE 1 TABLET BY MOUTH TWICE DAILY IN THE MORNING AND IN THE EVENING WITH FOOD 60 tablet 3 04/01/2 025 Active olmesartan (BENIcar) 5 MG tabletIndicatio ns:Primary hypertension TAKE 1 TABLET BY MOUTH EVERY MORNING 90 tablet Active atorvastatin (Lipitor) 20 MG tabletIndicatio ns:HTN (hypertension), benign Take 1 tablet (20 mg) by mouth in the morning. 90 tablet 1 025 Active mirtazapine (Remeron) 15 MG tabletIndicatio ns:Depressive disorder TAKE 1 TABLET BY MOUTH AT BEDTIME 90 tablet 1 Active cyanocobalamin (Vitamin B-12) 1000 MCG tabletIndicatio ns:Routine health maintenance Take 1 tablet (1,000 mcg) by mouth in the morning. 90 tablet 1 Active glucose blood (FREESTYLE LITE) test stripIndication s:Type 2 diabetes mellitus with hyperglycemia, with long-term current use of insulin ([facility]) Use to test blood sugar three times daily 100 each 025 2025 Active Lancets miscIndications :Type 2 diabetes mellitus with hyperglycemia, with long-term current use of insulin ([facility]) Use to test blood sugar three times daily 100 each 11 Active insulin lispro (HumaLOG KWIKPEN) 100 UNIT/ML injectionIndica tions:Type 2 diabetes mellitus with hyperglycemia, with long-term current use of insulin ([facility]) Inject 10 units subcutaneously once daily before largest meal. 15 mL Active insulin degludec (Tresiba FlexTouch) 200 UNIT/ML injectionIndica tions:Type 2 diabetes mellitus with hyperglycemia, with long-term current use of insulin ([facility]) Inject 60 units subcutaneously once daily 9 mL 5 Active oxyCODONE (Roxicodone) 5 MG immediate release tabletIndicatio ns:Chronic right shoulder pain TAKE 1 TABLET BY MOUTH EVERY 8 HOURS NEEDED FOR SEVERE PAIN 84 tablet Active fluticasone (Flonase) 50 MCG/ACT nasal spray Administer 1 spray into each nostril Once per day. 16 g 025 2024 Active acetaminophen (Tylenol Extra Strength) 500 MG tablet Take 1 tablet (500 mg) by mouth every 6 (six) hours if needed for mild pain. 120 tablet 025 2024 Active sodium chloride ([place] Nasal [place]) 0.65 % nasal spray Administer 1 spray into each nostril if needed for congestion. 30 mL 025 2025 Active amoxicillin-cla vulanate (Augmentin) 875-125 MG tablet Take 1 tablet by mouth 2 times daily for 7 days. 14 tablet 025 2024 Active insulin pen needle (BD Pen Needle Candie U/F) 32G x 4 mm miscIndications :Type 2 diabetes mellitus with hyperglycemia, without long-term current use of insulin ([facility]) USE DIRECTED TWICE DAILY 100 each 12 025 Active insulin pen needle (BD Pen Needle Candie U/F) 32G x 4 mm miscIndications :Type 2 diabetes mellitus with hyperglycemia, without long-term current use of insulin ([facility]) USE DIRECTED ONCE DAILY 100 each 12 024 2024 Discontinued insulin lispro (HumaLOG KWIKPEN) 100 UNIT/ML injectionIndica tions:Type 2 diabetes mellitus with hyperglycemia, with long-term current use of insulin ([facility]) 8 units with meal 2 mL 2 025 2024 Discontinued(R eorder (will not trigger notification to Pharmacy)) insulin glargine (Lantus SoloStar) 100 UNIT/ML penIndications: Type 2 diabetes mellitus with hyperglycemia, with long-term current use of insulin ([facility]) Inject 35 Units under the skin 2 times daily. INJECT 40 UNITS SUBCUTANEOUSLY EVERY MORNING AND INJECT 30 UNITS SUBCUTANEOUSLY EVERY EVENING 15 mL 3 025 2024 Discontinued(A lternate therapy) oxyCODONE (Roxicodone) 5 MG immediate release tabletIndicatio ns:Chronic right shoulder pain TAKE 1 TABLET BY MOUTH EVERY 8 HOURS NEEDED FOR SEVERE PAIN 84 tablet 025 2024 Discontinued Active Problems Problem Noted Date Diagnosed Date Acute non-recurrent maxillary sinusitis 10/12/19 25 Assessment & Plan (10/11/2024 1:52 PM EDT): Rapid viral testing negative, he has significant postnasal drip. Rx Augmentin x 7 days Rest (sleep at least 8 hours a night). Hydrate with plenty of water (avoid caffeine and alcohol). Use saline nose drops to loosen mucus + Flonase nasal Take Acetaminophen (Tylenol??)/Ibuprofen as needed to reduce fever, headache, body aches or discomfort Gargle with salt water and use throat sprays/lozenges for throat pain. Use heated, humidified air. If you do not have a humidifier, take hot showers. Cover coughs and sneezes using the crook of your elbow. If you have a fever, stay home and away from others (self isolation) until fever-free for 72 hours (temperature should be less than 100??F without medication). Kidney stones 09/06/2024 Assessment & Plan (09/06/2024 [...] start him on oxycodone 5mg Q 8hrs ALGOLOGY TEACHER will be initiated Plan is that after [...] pt in case needs to return to [facility] Type 2 diabetes mellitus wit [...] stomach 05/14/2022 Overview (06/12/2022): Patient seen by [facility] on 05/29/22: 10/2021 EGD [...] Coreg 12.5 mg bid. I spoke with [facility], and pt. will bring Medbox in [...] has MEDbox and has been ready to greens picker x last week ---advised pt to [...] Coreg 12.5 mg bid. I spoke with [facility], and pt. will bring Medbox in [...] Encounters Date Type Department Care Team Description 10/14/2024 Refill [facility] [address] [place] [address] Sindy Obrien MD Type 2 diabetes mellitus with hyperglycemia, without long-term current use of insulin ([facility]) 10/11/2024 1:20 PM EDT Office Visit [facility] [address] [place] [address] Teodora Weir MD Acute non-recurrent maxillary sinusitis (Primary Dx); Sore throat 10/11/2024 Refill [facility] [address] [place] [address] Park Montague MD Chronic right shoulder pain 09/28/2024 Travel 09/12/2024 Refill [facility] [address] [place] [address] Sindy Obrien MD Chronic right shoulder pain 09/07/2024 Travel 09/06/2024 1:15 PM EDT Office Visit [facility] [address] [place] [phone] Sindy Obrien MD Type 2 diabetes mellitus with hyperglycemia, with long-term current use of insulin ([facility]) (Primary Dx); HTN (hypertension), benign; Primary hypertension; Depressive disorder; Routine health maintenance; Kidney stones 09/06/2024 Travel 09/05/2024 Telephone [facility] [address] [place] [phone] Sindy Obrien MD CHART PREP 09/01/2024 Telephone [facility] [address] [place] [address] Sindy Obrien MD 08/18/2024 Telephone [facility] [address] [place] [phone] Sindy Obrien MD No Show 08/12/2024 Refill [facility] [address] [place] [phone] Sindy Obrien MD Chronic right shoulder pain 08/04/2024 Telephone [facility] [address] [place] [phone] Sindy Obrien MD HDF from Last 3 Months Immunizations Name Administration [...] Sign Reading Time Taken Comments Blood Pressure 125/71 10/11/2024 1:42 PM EDT Pulse 75 10/11/2024 1:42 PM EDT Temperature 37.1 ??C (98.7 ??F) 10/11/2024 1:42 PM ED T Respiratory Rate 16 10/11/2024 1:42 PM EDT Oxygen Saturation 98% 09/06/2024 1:23 PM EDT Inhaled Oxygen Concentration - - Weight 79.4 kg (175 lb) 10/11/2024 1:42 PM EDT Height 160 cm (5' 3 ) 10/11/2024 1:42 PM EDT Body Mass Index 31 10/11/2024 1:42 PM EDT Plan of Treatment Upcoming Encounters Date Type Department Care Team (Late st Contact Info) Description 10/18/2024 2:00 PM EDT Medication Management [facility] [address] [place] [phone] Edgard Dasilva, PharmD [address] [place] [address] 11/02/2024 10:15 AM EDT Office Visit [address] [phone] Sindy Obrien MD [address] [place], [place] [phone] 11/16/2024 2:00 PM EDT Clinical Support [address] [phone] 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, MANSI Health Maintenance Due Date [...] 06/06/2024 Depression Screening 06/06/2025 06/06/2024, 06/06/20 24 Eye Exam 08/17/2025 08/18/2023, 08/06, 08/18/2023, Additional history exists Tobacco Screening 10/11/2025 10/11/2024 Colonoscopy 01/23/2026 01/23/2023, 05/15/2016 Colorectal Cancer Screening [...] Name Priority Date/Time Associated Diagnosis Comments POCT RAPID STREP A Routine 10/11/2024 1: 51 PM EDT Sore throat POCT INFLUENZA B Routine 10/11/2024 1:51 PM EDT Sore throat POCT INFLUENZA A Routine 10/11/2024 1:51 PM EDT Sore throat POCT RAPID COVID ANTIGEN Routine 10/11/2024 1:51 PM EDT Sore throat POCT GLUCOSE Routine 09/06/2024 1:30 PM EDT Type 2 diabetes mellitus with hyperglycemia, with long-term current use of insulin ([facility]) HEMOGLOBIN A1C Routine 07/19/2024 10:23 AM EST HEPATITIS PANEL, GENERAL Routine 06/10/2024 11:29 AM EST Vestibular disorder, unspecified laterality HM COLONOSCOPY Routine 01/23/2023 LIPID PANEL, STANDARD Routine 12/30/2021 9:07 AM EDT ZZZ HISTORICAL OCCULT BLOOD STOOL X3 Routine 06/28/2019 12:00 AM EST from Last 3 Months or Most Recently Relevant to Health Maintenance Results * POCT Rapid Covid-19 BinaxNOW (10/11/2024 1:51 PM EDT) [facility] Rapid COVID Ag Negative QC Media Lot # [id number] Lot# Expiration Date ,026 Swab 10/11/2024 1:51 PM EDT Teodora Weir MD POINT OF CARE TEST ENTER /EDIT ORDERABLES Final Result * POCT Rapid Influenza B OSOM (10/11/2024 1:51 PM EDT) [facility] Rapid Influenza B Ag Negative Negative, Indeterminate QC Media Lot # [id number] Lot# Expiration Date [id number] Swab 10/11/2024 1:51 PM EDT Teodora Weir MD POINT OF CARE TEST ENTER /EDIT ORDERABLES Final Result * POCT Rapid Influenza A OSOM (10/11/2024 1:51 PM EDT) [facility] Rapid Influenza A Ag Negative Negative, Indeterminate QC Media Lot # [id number] Lot# Expiration Date ,026 Swab Nasopharyngeal structure / Unknown 10/11/2024 1:51 PM EDT Teodora Weir MD POINT OF CARE TEST ENTER /EDIT ORDERABLES Final Result * POCT Rapid Strep A OSOM (10/11/2024 1:51 PM EDT) [facility] Rapid Strep A Screen Negative Negative, None Detected QC Media Lot # [id number] Lot# Expiration Date [id number] Swab 10/11/2024 1:51 PM EDT us Teodora Weir MD POINT OF CARE TEST ENTER /EDIT ORDERABLES Final Result * POCT Glucose (09/06/2024 1:30 PM EDT) [facility] Glucose Blood, POC 137 60 - 200 mg/dL Blood Capillary blood specimen / Unknown 09/06/2024 1:30 PM EDT us Sindy Carlson MD POINT OF CARE TEST EN TER/EDIT ORDERABLES Final Result * (ABNORMAL) Hemoglobin A1c (07/19/2024 10:23 AM EST) [facility] Hemoglobin A1c 11.8(H) <6.0 % [facility] Comment:Hemoglobin A1C Refer ence Range Adults: 4.8 - 6.0 % Non diabetic: < 6.0 % Goal: < 7.0 %Additional Action Suggested: > 8.0 %Note: Hemoglobin A1c results are invalid for patients with abnormal amounts of HbF. Blood transfusions may impact the HbA1c concentration in the patient sample. Estimated Average Glucose 292 mg/dL [facility] Comment:eAG = Estimated ave rage glucose which is %A1C expressed asaverage glucose, using the formula of the [id number] Glucose study (ADAG), Diabetes Care, Vol.31,#8,Jan. 2007 07/19/2024 10:2 3 AM EST 07/19/2024 10:23 AM EST us Generic External Data Provider LAB BLOOD ORDERAB LES Final Result [facility] [address] [place] [phone] * Hepatitis Panel, General (06/10/2024 11:29 AM EST) [facility] Hepatitis A IgM Nonreactive Nonreactive [facility] Comment:IgM antibodies to MCCARTHY V not detected; does not exclude earlyacute or recovered HAV infection. ~Hepatitis B Surface Antibody NONREACTIVE Nonreactive [facility] Comment:Nonreactive: < 8.00 mIU/mL Hepatitis B Core Antibody Nonreactive Nonreactive [facility] Hepatitis C Antibody Nonreactive Nonreactive [facility] Comment:Antibodies to HCV no t detected; does not exclude early acuteHCV infection. Hepatitis B Surface Ag Negative Negative [facility] Blood Venous blood specimen / Unknown 06/10/2024 11:29 AM EST 06/10/2024 1:07 PM EST Sindy Carlson MD LAB BLOOD ORDERABLES Final Result [facility] [address] [place] [phone] * Hm Colonoscopy (01/23/2023) Historical Provider HEALTH MAINTENANCE Final Result * (ABNORMAL) LIPID PANEL, STANDARD (12/30/2021 9:07 AM EDT) [facility] Chol/HDLC Ratio 3.8 <5.0 (calc) [facility] Cholesterol, Total 115 <200 mg/dL [...] ?? Cory LYLES et al. LILY. 2013;310(19): 0510-9916 ?? (http://education.USMD/faq/QQJ193) Non-HDL Cholesterol 85 <130 mg/dL (calc) [facility] Comment: For patients with diabetes plus 1 major ASCVD risk ?? factor, treating to a non-HDL-C goal of <100 mg/dL ?? (LDL-C of <70 mg/dL) is considered a therapeutic ?? option. Triglycerides 129 <150 mg/dL [facility] 12/30/2021 9:07 AM EDT us Sindy Carlson MD LAB BLOOD ORDERABLES Final Result Performing Organization Address [facility] Co de Phone Number [facility] [address] * (ABNORMAL) OCCULT BLOOD STOOL X3 [...] BLE LABS Final Result Performing Organization Address [facility] Co de Phone Number [facility] [address] from Last 3 Months or Most Recently Relevant to Health Maintenance Insurance [facility] ASSISTED OPTIONS (HMO D-SNP) [facility] STANDARD Care Teams Implementation Architect Relationship Specialty Start Date End Date Sindy Obrien MD [address] [place] [address] PCP - General Family Medicine 03/28/19
--- OUTSIDE RECORDS SUMMARY | 2024-10-18 11:43 | XMS_ITS | Encounter Summary ---
Author Organization [employer] Address [address] [place] [address] Care Team Providers Care Quartz Miner Name Role Phone Sindy Obrien MD Primary Care Provide r Reason for Visit * Reason Comments Med Refill Encounter Details Date Type Department Care Team ([facility] st Contact Info) Description 04/26/2023 Refill [facility] [address] [place] [address] Sindy Obrien MD [address] [place] [address] HTN (hypertension), benign Social History Tobacco Use [...] Description 10/18/2024 2:00 PM EDT Medication Management [address] [address] Edgard Dasilva, PharmD [address] [place] [phone] 11/02/2024 10:15 AM EDT Office Visit [address] [address] Sindy Obrien MD [address] [place] [phone] 11/16/2024 2:00 PM EDT Clinical Support [address] [address] 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, MANSI documented as of this encounter Visit Diagnoses Diagnosis HTN (hypertension), benign Essential hypertension, benign documented in this encounter Additional Health Concerns Assessment Noted Time PHQ-9 Depression Total Score: 0 10/24/19 23 3:05 PM EDT documented as of this encounter Care Teams Quartz Miner Relationship Specialty Start Date End Date Sindy Obrien MD [address] [place] [phone] PCP - General Family Medicine 03/28/19 documented as of this encounter
--- OUTSIDE RECORDS SUMMARY | 2024-10-18 11:43 | XMS_ITS | Encounter Summary ---
Author Organization [employer] Address [address] [facility] [address] 7[address] [place] [address] Care Team Providers Care Payment Rep Name Role Phone Sindy Obrien MD Primary Care Provide r Reason for Visit * Reason Comments Med Refill Encounter Details Date Type Department Care Team ([facility] st Contact Info) Description 10/14/2024 Refill [facility] [address] [place], [place] [phone] Sindy Obrien MD [address] [place] [address] Type 2 diabetes mellitus with hyperglycemia, without long-term current use of insulin ([facility]) Social History Tobacco Use Types Packs/Day [...] 10/18/2024 2:00 PM EDT Medication Management [address] [address] Edgard Dasilva PharmD [address] [place] [address] 11/02/2024 10:15 AM EDT Office Visit [address] [address] Sindy Obrien MD [address] [place] [address] 11/16/2024 2:00 PM EDT Clinical Support [address] [address] 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 RN documented as of this encounter Goals Goal Patient Goal Type Associated Problems Recent Progress Patient-Stated? Author Hemoglobin A1c < 8 Result Component 11.8( 10:23 AM EST) No Caroline Neri PharmD documented as of this encounter Visit Diagnoses Diagnosis Type 2 diabetes mellitus with hyperglycemia, without long-term current use of insulin ([facility]) documented in this encounter Additional Health Concerns Assessment Noted Time PHQ-9 Depression Total Score: 0 06/06/20 24 1:16 PM EST documented as of this encounter Care Teams Payment Rep Relationship Specialty Start Date End Date Sindy Obrien MD [address] [place] [phone] PCP - General Family Medicine 03/28/19 documented as of this encounter
--- OUTSIDE RECORDS SUMMARY | 2024-10-18 11:43 | XMS_ITS | Encounter Summary ---
Author Organization [employer] Address [address] [facility] 7t [place] [address] Care Team Providers Care Test Tube Maker Name Role Phone Sindy Obrien MD Primary Care Provide r Encounter Details Date Type Department Care Team (Late st Contact Info) Description 05/20/2022 Orders Only [facility] MED[facility]INE [address] [place] [address] Bhakti Paredes DO [address] [place], [place] [phone] Hypertension, unspecified type (Primary Dx) Social History [...] Description 10/18/2024 2:00 PM EDT Medication Management [facility] [address] [place] [address] Edgard Dasilva, PharmD [address] [place] [address] 11/02/2024 10:15 AM EDT Office Visit [address] [address] Sindy Obrien MD [address] [place] [address] 11/16/2024 2:00 PM EDT Clinical Support [address] [phone] 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 RN documented as of this encounter Procedures Procedure Name Priority Date/Time Associated Diagnosis Comments BASIC METABOLIC PANEL Routine 07/08/2022 2:26 PM EST Hypertension, unspecified type documented in this encounter Results * (ABNORMAL) Basic Metabolic Panel (07/08/2022 2:26 PM EST) Glucose 444(H) 65 - 139 mg/dL [employer] [employer] Comment: Verified by repeat analysis. ? Non-fasting reference interval Urea Nitrogen (BUN) 14 7 - 25 mg/dL [facility] [employer] Creatinine, Serum 1.23 0.70 - 1.28 mg/dL [facility] [employer] eGFR 62 > OR = 60 mL/min/1 .73m2 [employer] [employer] Comment: The eGFR is based on the CKD-EPI 2020 equation. To calculate the new eGFR from a previous Creatinine or Cystatin C result, go to https://www.kidney.org/professionals/ kdoqi/gfr%5Fcalculator BUN/Creatinine Ratio NOT APPLICABLE 6 - 22 (calc) [facility] [employer] Sodium 132(L) 135 - 146 mmol/L [employer] [employer] Potassium 4.3 3.5 - 5.3 mmol/L [employer] [employer] Chloride 96(L) 98 - 110 mmol/L [employer] [employer] Carbon Dioxide 29 20 - 32 mmol/L [employer] [employer] Calcium 9.3 8.6 - 10.3 mg/dL [employer] [employer] Blood Venous blood specimen / Unknown 07/08/2022 2:26 PM EST 07/08/2022 2:27 PM EST Narrative [facility] - 07/09/2022 12:11 PM EST FASTING:NO FASTING: NO us Bhakti Paredes DO LAB BLOOD ORDERABLES Final R esult [facility] [address] [facility], [place] [address] [facility] [address] [facility], (N[address]) [place] [address] documented in this encounter Visit Diagnoses Diagnosis Hypertension, unspecified type- Primary documented in this encounter Care Teams Test Tube Maker Relationship Specialty Start Date End Date Sindy Obrien MD [address] [place] [phone] PCP - General Family Medicine 03/28/19 documented as of this encounter
== END 2024-10-18 10:34 | disposition home or self-care (01) ==
LOC: HO.US 10:33
PROVIDERS: PCP Internal Medicine; Visit Provider Urology
DX: N20.0 Calculus of kidney (principal)
CPT/HCPCS: 76775

== ENCOUNTER → 2024-10-18 10:38 | Outpatient (BNV) | payer OTHER, SELFPAY | PROVIDERS: PCP Internal Medicine; Visit Provider Radiology Diagnostic Radiology | DX: N20.0 Calculus of kidney (principal) | CPT/HCPCS: 76775 ==

== ENCOUNTER 2024-11-01 10:45 | Outpatient (AMB) | payer OTHER, SELFPAY ==
--- NOTE | 2024-11-01 10:47 | MHC.OFFVIS ---
Intake Visit Reasons: 3m follow up/ US Intake Note: Pt presents to the office today for a 3 month follow up/US. Allergies No Known Allergies [No Known Allergies*] Allergy (Verified 11/01/24 10:47) HPI Comments Details: Frantz is a pleasant Kyrgyz-speaking male. He is a patient of Dr. Carlson. He seen for the following urologic conditions - nephrolithiasis Kyrgyz translation provided by qualified medical office clerk Four month follow-up ultrasound Small stone seen left side Multiple renal cysts Start potassium citrate Encourage 80 oz fluid per day Nephrolithiasis Initial presentation through ER 07/02 Intervention - 07/02 right ureteroscopy with laser lithotripsy Imaging - 07/02 CT moderate right hydroureteronephrosis to the level of two adjacent 2-3 mm calculi at the UVJ. There is no left hydronephrosis or hydroureter - 10/30 renal ultrasound left 3 mm stone, multiple renal cysts Stone composition - 07/02 calcium oxalate monohydrate 80% Background diabetes poorly controlled Therapeutic plan - increase fluids - add potassium citrate PFSH Medical History Renal calculi Diabetes History of gastrectomy History of colon polyps Gastrointestinal stromal tumor (GIST) (~2014) Gastric adenocarcinoma Hydrocele Gastritis Vitamin B12 deficiency Hypercholesterolemia Hypertension Depression Surgical History H/O lithotripsy Hx of resection of stomach Hx of esophagogastroduodenoscopy Hx of endoscopy History of hernia repair History of back surgery (~2016) History of colonoscopy (~07/22/19) History of esophagogastroduodenoscopy (EGD) (07/22/19) Family History Father No problems noted. Mother History of cancer Social History Household Members: Spouse Housing: Apartment Are you a primary animal care supervisor to a significant other at home: No Do you presently have visiting nurse or other home services: No Alcohol intake: former Patient Tobacco Use Status: Former Tobacco user Tobacco use type: Cigarette Years Smoked: 35 Advance Directives Date on File: 06/27/24 service: No Current occupational status: retired Review of Systems Const Denies chills and Denies fever(s) Card Reports no additional complaints and Denies syncope Resp Denies cough GI Denies abdominal pain and Denies heartburn Reports as per HPI and Denies change in libido Neuro Denies syncope Psych Denies change in libido Endo Denies change in libido Physical Exam Const General: cooperative, healthy appearing, comfortable and no acute distress Orientation/consciousness: patient oriented x3 HEENT Face and sinus: Yes normal facial exam Mouth: moist mucous membranes Neck Neck: Yes normal visual inspection, Yes full ROM and Yes trachea midline Chest Chest palpation & inspection: normal inspection of the chest Resp Effort & Inspection: normal respiratory effort, able to speak in complete sentences and no respiratory distress GI Inspection: Yes normal to inspection Back/Spine/Pelvis Cervical Spine: normal cervical lordosis Thoracic/Lumbar Spine: thoracic and lumbar spine normal to inspection Skin General skin exam: no rashes or lesions noted Neuro General: patient oriented x3, gait normal, tone normal and moves all extremities Extrem General: Yes normal to inspection and Yes capillary refill normal Assessment & Plan Assessment & Plan (1) Renal calculi: Code(s): N20.0 - Calculus of kidney Category: Medical (2) Calcium oxalate calculus: Code(s): E83.59 - Other disorders of calcium metabolism Category: Medical Plan One year follow-up imaging Orders: Orders US renal BI 12 Months N20.0 - Calculus of kidney Medications: New potassium citrate ER 20 mEq (2 x 10 mEq (1,080 mg)) PO BID 90 days 360 tabs 3RF N20.0 - Calculus of kidney Patient Instructions: This note is constructed using voice recognition software. While every effort has been made to ensure accuracy group home counselor errors may have been included. Imaging studies, laboratory and physical exam results were discussed and reviewed in detail. No major barriers to patient understanding were identified. An opportunity to ask questions regarding the treatment plan was provided. All questions were answered. The patient expressed understanding and agreement with the above treatment plan. The patient is aware they should contact our office by phone for worsening of their current condition or the appearance of new urologic symptoms. Compliance is encouraged with any medications and followup testing that is ordered. It is a privilege to participate in the urologic care of your patient. If you have any questions or concerns regarding treatment for the above conditions, or other urologic issues, please do not hesitate to contact me. The office telephone contact is [phone]. Sincerely, Dr Amrik Garrett MD, [facility] - Urology Compassionate Specialist Care for the Genitourinary System Coding Level of Care Code Est Pt Level 4 (31915) Diagnoses Renal calculi N20.0 Calcium oxalate calculus E83.59
--- OUTSIDE RECORDS SUMMARY | 2024-11-01 11:31 | XMS_ITS | Encounter Summary ---
Author Organization [employer] Address [address] [facility] 7t [place] [address] Care Team Providers Care Nature Photographer Name Role Phone Sindy Obrien MD Primary Care Provide r Reason for Visit * Reason Onset Date Comments FYI 11/18/2023 Encounter Details Date Type Department Care Team ([facility] Contact Info) Description 11/18/2023 Telephone [facility] [address] [place] [address] Sindy Obrien MD [address] [place], [place] [phone] FYI Social History Tobacco Use Types Packs/Day [...] Care Team (Late st Contact Info) Description 11/02/2024 10:15 AM EDT Office Visit [facility] [address] [place] [phone] Sindy Obrien MD [address] [place] [address] 11/16/2024 2:00 PM EDT Clinical Support [facility] [address] [place] [phone] 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, MANSI documented as of this encounter Goals Goal Patient Goal Type Associated Problems Recent Progress Patient-Stated? Author Hemoglobin A1c < 8 Result Component 11.8( 10:23 AM EST) No Caroline Neri, Nithya documented as of this encounter Visit Diagnoses Not on filedocumented in this encounter Additional Health Concerns Assessment Noted Time PHQ-9 Depression Total Score: 0 10/24/19 3:05 PM EDT documented as of this encounter Care Teams Nature Photographer Relationship Specialty Start Date End Date Sindy Obrien MD [address] [place] [address] PCP - General Family Medicine 03/28/19 documented as of this encounter
== END 2024-11-01 11:37 | disposition home or self-care (01) ==
LOC: HO.HUSH 10:45
PROVIDERS: PCP Internal Medicine; Visit Provider Urology
DX: N20.0 Calculus of kidney (principal); E83.59 Other disorders of calcium metabolism
CPT/HCPCS: 99214

== ENCOUNTER → 2024-11-01 10:45 | Outpatient (BNVA) | payer OTHER, SELFPAY | PROVIDERS: PCP Internal Medicine; Visit Provider Urology | DX: N20.0 Calculus of kidney (principal); E83.59 Other disorders of calcium metabolism | CPT/HCPCS: 99212 ==

== ENCOUNTER 2024-11-02 11:54 | Outpatient (REF) | payer OTHER, SELFPAY ==
--- OUTSIDE RECORDS SUMMARY | 2024-11-02 12:42 | XMS_ITS | Encounter Summary ---
Author Organization [employer] Address [address] [facility] 7t [place] [address] Care Team Providers Care Owner/Operator Name Role Phone Sindy Obrien MD Primary Care Provide r Encounter Details Date Type Department Care Team (Latest Contact Info) Description 11/02/2024 Travel Social History Tobacco Use Types Packs/Day [...] Recorded Patient Health Questionnaire-2 Score 0 06/06/2024 Internet Access Answer Date Recorded Internet Access Q1 No 10/21/2024 Internet Access Q2 I do not want or need it 10/06 Sex and Gender Information Value Date Recorded Sex Assigned at Male 04/07/2022 10:32 AM EDT Legal Sex Male 10:32 AM EDT Gender Identity Male 04/07/2022 10:32 AM EDT Sexual Orientation Straight 04/07/2022 10 :32 AM EDT documented as of this encounter Plan of Treatment Upcoming Encounters Date Type Department Care Team (Late st Contact Info) Description 11/16/2024 2:00 PM EDT Clinical Support [facility] [address] [place] [address] 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 RN documented as of this encounter Goals Goal Patient Goal Type Associated Problems Recent Progress Patient-Stated? Author Hemoglobin A1c < 8 Result Component 9.3(11/02/2024 10:10 AM EDT) No Caroline Neri, PharmD documented as of this encounter Visit Diagnoses Not on filedocumented in this encounter Additional Health Concerns Assessment Noted Time PHQ-9 Depression Total Score: 0 06/06/20 24 1:16 PM EST documented as of this encounter Care Teams Owner/Operator Relationship Specialty Start Date End Date Sindy Obrien MD [address] [place] [address] PCP - General Family Medicine 03/28/19 documented as of this encounter
[2024-11-02 13:47] LABS: Cholesterol 121 mg/dL (<200); HDL Cholesterol 29 mg/dL (>40); LDL Cholesterol Calculated 66 mg/dL (<100); Triglycerides 134 mg/dL (<150)
[2024-11-02 14:12] LABS: Creatinine Urine 50.99 mg/dL; Microalbum/Creatinine Ratio Ur 35.3 ug/mg cr (<30)
== END 2024-11-02 11:55 | disposition home or self-care (01) ==
LOC: HO.HHCL 11:54
PROVIDERS: Visit Provider Internal Medicine
DX: E11.65 Type 2 diabetes mellitus with hyperglycemia (principal); Z79.4 Long term (current) use of insulin
CPT/HCPCS: 36415; 80061; 82043; 82570

== ENCOUNTER 2024-11-10 10:50 | Emergency (ER) | payer OTHER, SELFPAY ==
--- NOTE | ~2024-11-10 | XR_ITS ---
EXAMINATION: XR CHEST CLINICAL INFORMATION: prod cough COMPARISON: CT chest 09/07/2023. TECHNIQUE: 2 views of the chest were obtained. FINDINGS: Right chest port is in place, tip terminating at the cavoatrial junction, in good position. The cardiac, hilar, and mediastinal contours are normal. Aortic mural calcifications. Lungs demonstrate mild linear opacity in the left base, with suggestion of associated mild peribronchial thickening. Lungs otherwise clear. There is no pneumothorax or pleural effusion. There is no focal osseous or soft tissue abnormality. There are spinal degenerative changes present. There are significant degenerative changes in the right shoulder joint. XR/XR chest 2V IMPRESSION: 1. Right chest port in good position. 2. Linear opacities in the left lower lobe, with a suggestion of associated peribronchial thickening. Infectious/inflammatory airways disease is a possibility. Electronically signed by: Oz Grace MD 11/10/2024 01:40 PM EDT
[2024-11-10 11:18] VITALS: BP 126/64; PULSE 81; RESP 18; TEMP 36.8; O2SAT 93; BMI 30.1
--- NOTE | 2024-11-10 11:18 | ED_ITS ---
HPI - URI/Sore Throat General Chief Complaint: Upper Respiratory Symptoms Stated Complaint: Sore throat, cough Time Seen by Provider: 11/10/24 13:42 Source: patient and motor vehicle parts interpreter Mode of arrival: ambulatory Limitations: language barrier History of Present Illness ED Provider: HPI Narrative: Persistent cough, hoarse voice, history of COPD and asthma, stuffy nose. Worse at night. No chest pain no fevers or chills no hemoptysis. Related Data Home Medications ?Medication ?Instructions ?Recorded ?Confirmed amlodipine 10 mg tablet (Norvasc) 10 mg PO DAILY 03/27/20 10/25/24 atorvastatin 20 mg tablet 20 mg PO BEDTIME 03/27/20 10/25/24 calcium polycarbophil 625 mg tablet 1,250 mg PO DAILY 03/27/20 10/25/24 cyanocobalamin (vitamin B-12) 1,000 mcg PO DAILY 03/27/20 10/25/24 1,000 mcg tablet mirtazapine 15 mg tablet 15 mg PO BEDTIME 02/14/21 10/25/24 carvedilol 12.5 mg tablet 12.5 mg PO BID 05/29/22 10/25/24 dapagliflozin propanediol 10 mg 10 mg PO DAILY 09/10/23 10/25/24 tablet (Farxiga) insulin glargine 100 unit/mL (3 36 unit subcut BID 06/26/24 10/25/24 mL) subcutaneous pen (Lantus Solostar U-100 Insulin) meclizine 25 mg tablet 25 mg PO TID PRN dizziness 06/26/24 10/25/24 olmesartan 5 mg tablet 5 mg PO DAILY 06/26/24 10/25/24 oxycodone 5 mg tablet 5 mg PO Q8H PRN severe pain 06/26/24 10/25/24 Previous Rx's ?Medication ?Instructions ?Recorded glipizide 10 mg tablet, extended 10 mg PO DAILY #30 tabs 12/31/22 release 24 hr (Glucotrol XL) ferrous sulfate 325 mg (65 mg 325 mg PO BID #60 tabs 09/06/24 iron) tablet potassium citrate 10 mEq (1,080 20 meq (2 x 10 mEq (1,080 mg)) PO 11/01/24 mg) tablet,extended release BID 90 days #360 tabs azithromycin 500 mg tablet See Rx Instructions PO .COMPLEX #3 11/10/24 tabs fluticasone propionate 50 2 spray intranasal DAILY #16 grams 11/10/24 mcg/actuation nasal spray,suspension (Flonase Allergy Relief) prednisone 10 mg tablet 10 mg PO DIRECTED 7 days #7 tabs 11/10/24 Allergies Allergy/AdvReac Type Severity Reaction Status Date / Time No Known Allergies Allergy Verified 11/10/24 11:23 [No Known Allergies*] Review of Systems Constitutional: Constitutional: Reports as per HPI [facility] Past Medical History Medical History Renal calculi Diabetes History of gastrectomy History of colon polyps Gastrointestinal stromal tumor (GIST) (~2014) Gastric adenocarcinoma Hydrocele Gastritis Vitamin B12 deficiency Hypercholesterolemia Hypertension Depression Surgical History H/O lithotripsy Hx of resection of stomach Hx of esophagogastroduodenoscopy Hx of endoscopy History of hernia repair History of back surgery (~2016) History of colonoscopy (~07/22/19) History of esophagogastroduodenoscopy (EGD) (07/22/19) Family History Family History Father No problems noted. Mother History of cancer Social History Social History Household Members: Spouse Housing: Apartment Are you a primary career based intervention coordinator to a significant other at home: No Do you presently have visiting nurse or other home services: No Alcohol intake: former Patient Tobacco Use Status: Former Tobacco user Tobacco use type: Cigarette Years Smoked: 35 Advance Directives Date on File: 06/27/24 service: No Current occupational status: retired Physical Exam Vital Signs: Vital Signs: Last Vital Signs Temp 97.6 F 11/10/24 13:36 Pulse 79 11/10/24 13:36 Resp 18 11/10/24 13:36 BP 150/82 H 11/10/24 13:36 Pulse Ox 96 11/10/24 13:36 O2 Del Method Room Air 11/10/24 13:36 BMI result Body Mass Index 30.1 Const: Other: * Gen: ?Overall well-appearing patient * HEENT: PERRLA, EOMI, uvula midline, there is obvious postnasal drip, boggy nasal mucosa * Neck: Supple, no LAD * CV: RRR, no obvious murmurs appreciated * Resp: ?Right lower lobe some minimal rhonchorous breath sounds * Abd: ?Bowel sounds are present, no tenderness no rebound no rigidity * MSK: FROM, strength 5/5 all extremities * Skin: Warm, dry, intact, * Neuro: ?Alert and oriented x3, moving upper and lower extremities symmetrically, no obvious facial asymmetry noted Course Course Course Narrative: This is a Rapid Medical Exam performed in triage by Jaida Hammond PA-C. Full HPI, ROS and PE to be performed by primary ED provider. 74 yo romanian speaking male with past medical history diabetes, renal calculi, HTN, depression, presenting to the ED c/o cough x few days w/ +mild SOB & sore throat. denies CP PE: talking in complete sentences, lungs CTA, uvula midline no exudates Plan: SARs, rapid strep Medical Decision Making Medical Decision Making MDM Narrative: Overall well-appearing patient presenting with dry cough without any evidence for CHF and physical examination, he has obvious postnasal drip on exam, chest x-ray and physical exam there may be infectious etiology present, we will start him on antibiotics and steroids, viral swab negative, he is not hypoxic not tachycardic. No chest pain to suspect underlying ACS Differential Diagnosis Differential Diagnoses: The differential diagnosis associated with the presentation includes CHF, pneumonia, postnasal drip, tonsillitis, peritonsillar abscess, ACS Admission/Observation Consideration of admission/observation: Escalation of care including admission/observation considered Nontoxic appearing, vital signs are stable Lab Data Labs: Lab Results 11/10/24 Range/Units 11:33 Influenza Type A (PCR) NEGATIVE (Negative) Influenza Type B (PCR) NEGATIVE (Negative) RSV RNA Qual (PCR) NEGATIVE (Negative) SARS-CoV-2 RNA (RT-PCR) NEGATIVE (Negative) S. pyogenes GrpA JIM Negative (Negative) Discharge Plan Discharge Clinical Impression: Persistent dry cough, Bronchitis, Post-nasal drip Patient Disposition: Home, Self-Care Additional Instructions: Use Flonase, as directed, you have evidence of postnasal drip which causes irritation of the throat and causes persistent cough, but also chest x-ray revealed small area that may be infectious in etiology and so I am starting you on a short course of antibiotics and because your diabetic a short course of steroids otherwise follow up with the PCP, chest x-ray physical exam and your viral swab today has been reassuring. Prescriptions: New azithromycin 500 mg tablet See Rx Instructions .ROUTE .COMPLEX Qty: 3 0RF Rx Instructions: For 500 mg dose pack: take 500 mg once daily for 3 days prednisone 10 mg tablet 10 mg PO DIRECTED 7 Days Qty: 7 0RF Rx Instructions: see taper instructions fluticasone propionate [Flonase Allergy Relief] 50 mcg/actuation spray,suspension 2 spray intranasal DAILY Qty: 16 0RF Rx Instructions: administer into each nostril No Action atorvastatin 20 mg Tablet 20 mg PO BEDTIME cyanocobalamin (vitamin B-12) 1,000 mcg Tablet 1,000 mcg PO DAILY amlodipine [Norvasc] 10 mg Tablet 10 mg PO DAILY calcium polycarbophil 625 mg Tablet 1,250 mg PO DAILY ferrous sulfate 325 mg (65 mg iron) Tablet 325 mg PO BID Qty: 60 3RF glipizide [Glucotrol XL] 10 mg tablet extended release 24hr 10 mg PO DAILY Qty: 30 2RF meclizine 25 mg tablet 25 mg PO TID PRN (Reason: dizziness) oxycodone 5 mg tablet 5 mg PO Q8H PRN (Reason: severe pain) Rx Instructions: for right shoulder pain olmesartan 5 mg tablet 5 mg PO DAILY insulin glargine [Lantus Solostar U-100 Insulin] 100 unit/mL (3 mL) insulin pen 36 unit SUBCUT BID mirtazapine 15 mg tablet 15 mg PO BEDTIME carvedilol 12.5 mg tablet 12.5 mg PO BID potassium citrate 10 mEq (1,080 mg) tablet extended release 20 meq PO BID 90 Days Qty: 360 3RF dapagliflozin propanediol [Farxiga] 10 mg tablet 10 mg PO DAILY Referrals: Sindy Obrien MD [Primary Care Provider] - Print Language: Romanian
[2024-11-10 11:50] LABS: IDNOW Serial# 55D5AD1C; Strep A Nucleic Acid Negative (Negative)
[2024-11-10 12:55] LABS: Influenza A PCR NEGATIVE (Negative); Influenza B PCR NEGATIVE (Negative); Resp Syncy Virus RNA Qual PCR NEGATIVE (Negative); SARS COV2 PCR INHOUSE NEGATIVE (Negative)
[2024-11-10 13:36] VITALS: BP 150/82; PULSE 79; RESP 18; TEMP 36.4; O2SAT 96
[2024-11-10 14:51] VITALS: BP 150/82; PULSE 79; RESP 18; TEMP 36.4; O2SAT 96
--- OUTSIDE RECORDS SUMMARY | 2024-11-10 16:14 | XMS_ITS | Encounter Summary ---
Author Organization [employer] Address [address] [facility] 7t [place] [address] Care Team Providers Care Horseback Excavator Name Role Phone Sindy Obrien MD Primary Care Provide r Reason for Visit * Reason Onset Date Comments Med Refill [facility] Form 11/01/2024 I called the pat ient to get more information, regarding a Medical Evaluation Form from the [facility]. I reached a voicemail, and left a message asking him to return my call at ext [phone]. Encounter Details Date Type Department Care Team (Late st Contact Info) Description 11/01/2024 Refill [facility] [address] [place], [place] [phone] Sindy Obrien MD [address] [place], [place] [phone] Chronic right shoulder pain Social History Tobacco [...] encounter Miscellaneous Notes * Telephone Encounter - Natalie Moeller MA - 11/02/2024 3:48 PM EDT I called the patient to get more information, regarding a Medical Evaluation Form from the [facility]. I reached a voicemail, and left a message asking him to return my call at ext [phone]. * Telephone Encounter - 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 RN - 11/02/2024 11:53 AM EDT Per Kristina, Oxycodone last picked up 10/12/24. Refill due 11/09/24. Will forward to PCP on 11/07/24. documented in this encounter Plan of Treatment Upcoming Encounters Date Type Department Care Team (Late st Contact Info) Description 11/22/2024 1:30 PM EDT Clinical Support [facility] [address] [place] [address] [place] [address] 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 RN 12/05/2024 1:30 PM EDT Medication Management [facility] [address] [place] [phone] Edgard Dasilva, PharmD [address] [place] [address] 01/31/2025 3:30 PM EDT Office Visit [facility] [address] [place] [phone] Sindy Obrien MD [address] [place] [phone] documented as of this encounter Goals Goal Patient Goal Type Associated Problems Recent Progress Patient-Stated? Author Hemoglobin A1c < 8 Result Component 9.3(11/02/2024 10:10 AM EDT) Caroline Rose, Nithya documented as of this encounter Visit Diagnoses Diagnosis Chronic right shoulder pain Pain in joint, shoulder region documented in this encounter Additional Health Concerns Assessment Noted Time PHQ-9 Depression Total Score: 0 06/06/20 24 1:16 PM EST documented as of this encounter Care Teams Horseback Excavator Relationship Specialty Start Date End Date Sindy Obrien MD [address] [place] [phone] PCP - General Family Medicine 03/28/19 documented as of this encounter
== END 2024-11-10 15:02 | disposition home or self-care (01) ==
PROVIDERS: Physician Assistant; Emergency Provider Emergency Medicine; PCP Internal Medicine
DX: J40 Bronchitis, not specified as acute or chronic (principal); J02.9 Acute pharyngitis, unspecified; R05.9 Cough, unspecified; R09.82 Postnasal drip; Z03.818 Encounter for observation for suspected exposure to other biological agents ruled out
CPT/HCPCS: 0241U; 71046; 87651; 99283; 99284

== ENCOUNTER → 2024-11-10 11:23 | Outpatient (BNV) | payer OTHER, SELFPAY | PROVIDERS: Emergency Provider Emergency Medicine; PCP Internal Medicine; Visit Provider Radiology Diagnostic Radiology | DX: R91.8 Other nonspecific abnormal finding of lung field (principal) | CPT/HCPCS: 71046 ==

== ENCOUNTER 2024-12-15 07:57 | Outpatient (REF) | payer OTHER, SELFPAY ==
--- NOTE | ~2024-12-15 | US_ITS ---
CLINICAL HISTORY: Liver lesion seen on CT scan US abdomen complete Comparison: US - US RENAL BI - 10/18/24 13:[address]/DC/SR - CT ABDOMEN PELVIS W IV CON - 09/07/23 11:58 EDT Findings: The visualized pancreas is normal. The aorta and inferior vena cava are normal caliber. Hepatic echotexture is coarsened with overall increased hepatic echogenicity. Liver length 17 cm which is mildly enlarged. There is no intrahepatic bile duct dilatation. The common duct is 9 mm in diameter. The gallbladder is normal. There is no sonographic Davis sign. The main portal vein is antegrade. The right kidney is 11.3 cm in length. The left kidney is 12.4 cm in length. numerous bilateral cystic renal lesions some containing thin septations. No discrete mural nodularity is appreciated. These appear relatively unchanged in size compared with the patient's prior CT and ultrasound. Stone versus debris within a lower pole cyst on the left. Punctate right-sided stone seen on the prior CT are not appreciated on the current ultrasound. The spleen is nonenlarged. No ascites. IMPRESSION: 1. Morphologic changes of chronic liver disease. No focal hepatic lesion appreciated by ultrasound. Consider MRI with and without contrast. 2. Unremarkable gallbladder. Common bile duct is dilated but there are no filling defects identified. 3. Numerous bilateral renal cysts that appear stable compared with the patient's Prior renal ultrasound and CT. This document has been electronically signed by: Dana Kinney MD on 12/15/2024 10:17:51
--- OUTSIDE RECORDS SUMMARY | 2024-12-15 08:00 | XMS_ITS | Encounter Summary ---
Author Organization [employer] Address [address] [facility] 7t [place] [address] Care Team Providers Care Aging Box Hand Name Role Phone Sindy Obrien MD Primary Care Provide r Reason for Visit * Reason Onset Date Comments FYI 11/18/2023 Encounter Details Date Type Department Care Team ([facility] Contact Info) Description 11/18/2023 Telephone [facility] MED[facility]INE [address] [place] [address] Sindy Obrien MD [address] [place], [place] [phone] FYI Social History Tobacco Use Types Packs/Day [...] Care Team (Late st Contact Info) Description 12/19/2024 2:00 PM EDT Clinical Support [address] [address] 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 RN 12/22/2024 10:00 AM EDT Medication Management [address] [address] Edgard Dasilva, PharmD [address] [place] [address] 01/31/2025 3:30 PM EDT Office Visit [address] [address] Sindy Obrien MD [address] [place] [address] 02/23/2025 1:00 PM EDT Clinical Support [address] [address] 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 RN documented as of this encounter Goals Goal Patient Goal Type Associated Problems Recent Progress Patient-Stated? Author Hemoglobin A1c < 8 Result Component 9.3(11/02/2024 10:10 AM EDT) No Caroline Neri, Nithya documented as of this encounter Visit Diagnoses Not on filedocumented in this encounter Additional Health Concerns Assessment Noted Time PHQ-9 Depression Total Score: 0 10/24/19 23 3:05 PM EDT documented as of this encounter Care Teams Aging Box Hand Relationship Specialty Start Date End Date Sindy Obrien MD [address] [place] [address] PCP - General Family Medicine 03/28/19 documented as of this encounter
--- OUTSIDE RECORDS SUMMARY | 2024-12-15 08:00 | XMS_ITS | Patient Health Record ---
Author Organization [facility] Address [address] [place] [address] Care Team Providers Care Blasting Worker Name Role Phone Teodora Gomez Primary Care Provider Dusty Stoner Unavailable [phone] Reason For Referral No Information Medications Medication SIG (Take, Route, Frequency, Duration) Notes Start Date End Date Status metFORMIN HCl 1000 MG TOME MADHAV TABLETA 2 VECES AL RHIANNON Oral for 30 Active Lisinopril 40 MG TAKE 1 TABLET ONCE A DAY ORALLY Oral for 30 Active hydroCHLOROthiazide 25 MG TOME MADHAV TABLE TA POR VIA ORAL TODOS [place] Oral for 30 Active Simvastatin 20 MG TOME MADHAV TABLETA EN LA NOCHE Oral for 30 Active Problems Problem Type SNOMED Code ICD Code Onset Dates Problem Status W/U Status Risk Notes Problem Liver function tests abnormal (944838299) Abnormal liver function tests (790.6) Active confirmed Problem Computed tomography of abdomen abnormal (finding) (5461594250030 9107) Abnormal computed tomography of gastrointestinal tract (793.4) Active confirmed Plan Of Treatment Future Test Test Name Order Date UPPER GI ENDOSCOPY 09/29/2013 Insurance Providers Payer Name Payer Address Payer Phone Subscriber Number Group Number Insured Name Patient Relationship to Insured Coverage Start Date Coverage End Date [facility] [address] [place] [phone] [id number] STACEY SANCHEZMODESTO TATO Self - patient is the insured Medical (General) History Medical History History ICD Code NIDDM HTN Hyperlipidemia kidney stones Denies [place],CVA,Lung disease,renal disease Describes an EGD and Colonos copy at [facility] in approx 2011-reports they were OK as far as he knows Surgical History Surgery Date(Month/Year) Right leg surgey-plate in upper thigh Fatty tumor removal in back hernia repair
--- OUTSIDE RECORDS SUMMARY | 2024-12-15 08:00 | XMS_ITS | Clinical Summary ---
Author Organization [facility] Address [address] [place] [address], [place] [address] Care Team Providers Care Sustainable Communities Designer Name Role Phone Sindy Obrien MD [...] 50+ Ye ars (2 of 2 - PPSV23, PCV20, or PCV21) 11/19/2017 09/24/2017 Diabetes: Ophthalmology Exam 03/26/2022 Diabetes: Pedal Pulse Checked 03/26/2022 Diabetes: Sensory Foot Exam 03/26/2022 Diabetes: Visual Foot Exam 03/26/2022 Diabetes: Hemoglobin A1C 10/12/2022 07/15/2022 Influenza Vaccine (#1) 2025 Hepatitis B Vaccine Aged Out No longe r eligible based on patient's age to complete this topic [place] [address] ([id number]) [facility] ([id number]) Care Teams Sustainable Communities Designer Relationship Specialty Start Date End Date Sindy Obrien MD [address] [place] [phone] PCP - General Internal Medicine 01/01/22
== END 2024-12-15 07:58 | disposition home or self-care (01) ==
LOC: HO.US 07:57
PROVIDERS: PCP Internal Medicine; Visit Provider Internal Medicine
DX: C16.9 Malignant neoplasm of stomach, unspecified (principal)
CPT/HCPCS: 76700

== ENCOUNTER → 2024-12-15 08:00 | Outpatient (BNV) | payer OTHER, SELFPAY | PROVIDERS: PCP Internal Medicine; Visit Provider Radiology Diagnostic Radiology | DX: K76.9 Liver disease, unspecified (principal) | CPT/HCPCS: 76700 ==

== ENCOUNTER 2024-12-19 17:49 | Outpatient (REF) | payer OTHER, SELFPAY | END 2024-12-19 17:50 | disposition home or self-care (01) | LOC: HO.HHCLNP 17:49 | PROVIDERS: Visit Provider Internal Medicine | DX: Z51.81 Encounter for therapeutic drug level monitoring (principal); Z79.891 Long term (current) use of opiate analgesic | CPT/HCPCS: 36415; 80307 ==

== ENCOUNTER 2025-01-04 09:07 | Outpatient (REF) | payer OTHER, SELFPAY ==
--- OUTSIDE RECORDS SUMMARY | 2025-01-04 10:23 | XMS_ITS | Encounter Summary ---
Author Organization [employer] Address [address] [facility] [address] 7[address] [place] [address] Care Team Providers Care Street Contractor Name Role Phone Sindy Obrien MD Primary Care Provide r Edgard Dasilva PharmD Unavailable [phone] Encounter Details Date Type Department Care Team ([facility] st Contact Info) Description 12/30/2024 Telephone [facility] MEDICINE [address] [place], [place] [phone] Edgard Dasilva, PharmD [address] [place], [place] [phone] Social History Tobacco Use Types Packs/Day Years [...] is your housing situation today? I have marjna montelongo 11/13/[address] you [...] encounter Miscellaneous Notes * Telephone Encounter - Edgard Dasilva PharmD - 12/30/2024 11:58 AM EDT Pharmacy Brief Encounter - Insulin Titration Pharmacist: Edgard Dasilva, PharmD Frantz Mccormack is a 74 y.o. year old patient here for CDTM - Diabetes completed over the phone. Pharmacotherapy: Farxiga 10 mg po daily Tresiba (200 units/mL) 60 units subcutaneously daily Humalog 17 units subcutaneously daily with largest meal (actual use 20 units) Summary of previous encounter(s): CDTM 12/22/2024: Humalog increase to 17 units as patient has FBG at goal but significant hyperglycemia in the evenings. Today's Visit: Daily Routine Time of Day Basal Insulin Bolus Insulin Common Food 8:00 AM (Breakfast) Tresiba 60 units - Coffee, Bread, Oatmeal, hot dog, corn meal Noon - Skips Meal - - - 3:00 PM (Dinner) - Humalog 20 units Rice and Beans, fried chicken, steak. Patient denies eating more than 1 substantial meal, reports only eating some bread with coffee in the morning. Previously reports oatmeal, corn meal and hotdogs (see above) Patient FBG in AM have been at goal historically, post prandial BG has been area of concern. Reports checking BG before eating dinner and injecting Humalog (around 3:30 PM), then check BG again a few hours later. Blood glucose (mg/dL) Date Before dinner ~ 2 hr post dinner 12/23/24 269 322 12/24/24 289 296 12/25/24 256 282 12/26/24 282 286 12/28/24 - - 12/29/24 388 240 Plan: Patient agrees to add Humalog 4 units before first meal/snack of day. Dose likely will need to be titrated higher. Patient insists he is not eating more than a snack, although difference between FBG and pre-dinner BG is ~200 mg/dL. Patient agrees to continue to SMBG before and after dinner. Pharmacist requests patient also log FBG for reporting. Follow up in 1 week via telephone for continued titration of prandial insulin. documented in this encounter Plan of Treatment Upcoming Encounters Date Type Department Care Team (Late st Contact Info) Description 01/19/2025 1:30 PM EDT Clinical Support [facility] [address] [place] [phone] 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 RN 01/31/2025 3:30 PM EDT Office Visit [facility] [address] [place] [address] Sindy Obrien MD [address] [place] [address] 02/23/2025 1:00 PM EDT Clinical Support [address] [address] 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 RN 03/02/2025 10:00 AM EDT Medication Management [address] [address] Edgard Dasilva PharmD [address] [place] [address] documented as of this encounter Goals Goal Patient Goal Type Associated Problems Recent Progress Patient-Stated? Author Hemoglobin A1c < 8 Result Component 9.3(11/02/2024 10:10 AM EDT) Caroline Rose, AtiyaD documented as of this encounter Visit Diagnoses Diagnosis Type 2 diabetes mellitus with hyperglycemia, with long-term current use of insulin (CMS/[facility]) Type 2 diabetes mellitus with hyperglycemia, without long-term current use of insulin ([facility]) documented in this encounter Additional Health Concerns Assessment Noted Time PHQ-9 Depression Total Score: 0 06/06/20 24 1:16 PM EST documented as of this encounter Care Teams Street Contractor Relationship Specialty Start Date End Date Sindy Obrien MD [address] [place] [address] PCP - General Family Medicine 03/28/19 Edgard Dasilva, PharmD [address] [place] [phone] Pharmacist Pharmacy 12/23/24 documented as of this encounter
[2025-01-04 14:23] LABS: Anion Gap 11 (12-20); Blood Urea Nitrogen 17 mg/dL (9-16); Calcium 8.8 mg/dL (8.4-10.2); Carbon Dioxide 27 mmol/L (22-29); Chloride 106 mmol/L (96-108); Estimated Glomerular Filt Rate 59; Potassium 4.4 mmol/L (3.3-5.1); Sodium 140 mmol/L (135-145)
[2025-01-04 14:56] LABS: Total Protein Urine Random < 7 mg/dL (<12)
== END 2025-01-04 09:08 | disposition home or self-care (01) ==
LOC: HO.10HDL 09:07
PROVIDERS: PCP Internal Medicine; Visit Provider Internal Medicine Nephrology
DX: I12.9 Hypertensive chronic kidney disease with stage 1 through stage 4 chronic kidney disease, or unspecified chronic kidney disease (principal); N18.31 Chronic kidney disease, stage 3a; N20.0 Calculus of kidney
CPT/HCPCS: 36415; 80051; 82310; 82565; 82570; 84156; 84520; 99212

== ENCOUNTER 2025-01-04 09:07 | Outpatient (AMB) | payer OTHER, SELFPAY ==
--- NOTE | 2025-01-04 09:27 | HO.NEPHOV_ITS ---
Vital Signs 01/04/25 09:28 Height 5 ft 3 in Weight 177 lb 2 oz BMI 31.4 BP 100/60 Blood Pressure Location Lt brachial Position Sitting Pulse 56 Pulse Source Pulse Oximeter Pulse Oximetry (%) 98 Oxygen Delivery Method Room Air Intake Visit Reasons: FU-Conf Laser Beam Color Scanner Operator Required: Yes Laser Beam Color Scanner Operator Language: Institutional Aide Services: Laser Beam Color Scanner Operator Present Laser Beam Color Scanner Operator Name: Jamarcus [id number] Information Interpreted: clinical only Accompanied by: Self / Same As Patient Allergies No Known Allergies (No Known Allergies*) Allergy (Verified 01/04/25 09:28) HPI Comments Details: Frantz was seen in follow up for CKD. He is a longstanding diabetic with uncontrolled blood sugars and high hemoglobin A1c. He has history of gastric cancer and was given chemotherapy. He has no history of proteinuria. He denies retinopathy, coronary artery disease, CVA, CHF, peripheral arterial disease. He has been taking THIAGO-inhibitor, olmesartan, diuretics as well as Farxiga. He denies taking excessive nonsteroidal anti-inflammatories. He does not have any nausea, vomiting, diarrhea, dizziness, shortness of breath, proximal nocturnal dyspnea, orthopnea, pedal edema, hematuria, joint swellings, sinusitis, recent sore throat, recent antibiotic intake, skin rashes, photosensitivity. His recent serum creatinine is stable. He has history of renal calculus but does not have any flank pain or hematuria. He denied any new active complaints at the time of this office visit [facility] Medical History (Reviewed 11/01/24 @ 10:53 by Mary Jane Luis [facility]) Renal calculi Diabetes History of gastrectomy History of colon polyps Gastrointestinal stromal tumor (GIST) (~2014) Gastric adenocarcinoma Hydrocele Gastritis Vitamin B12 deficiency Hypercholesterolemia Hypertension Depression Surgical History H/O lithotripsy Hx of resection of stomach Hx of esophagogastroduodenoscopy Hx of endoscopy History of hernia repair History of back surgery (~2016) History of colonoscopy (~07/22/19) History of esophagogastroduodenoscopy (EGD) (07/22/19) Family History Father No problems noted. Mother History of cancer Social History Household Members: Spouse Housing: Apartment Are you a primary child care specialist to a significant other at home: No Do you presently have visiting nurse or other home services: No Alcohol intake: former Patient Tobacco Use Status: Former Tobacco user Tobacco use type: Cigarette Years Smoked: 35 Advance Directives Date on File: 06/27/24 service: No Current occupational status: retired Review of Systems Const All systems reviewed & are unremarkable except as noted in HPI and below Physical Exam Vital Signs: Last Vital Signs Pulse 56 01/04/25 09:28 BP 100/60 01/04/25 09:28 Pulse Ox 98 01/04/25 09:28 Oxygen Delivery Method Room Air 01/04/25 09:28 BMI result Body Mass Index 31.4 Const General: comfortable and no acute distress Orientation/consciousness: patient oriented x3 HEENT Head: Yes normocephalic Mouth: Normal oral and palatal mucosa present Eyes EOM: EOMs intact bilaterally Neck Neck: Yes supple Resp Auscultation: clear to auscultation bilaterally Cardio Jugular venous distension: no JVD Rate: regular rate GI Palpation (GI): Soft to palpation Auscultation: normal bowel sounds General: Yes no CVA tenderness Back/Spine/Pelvis Back: no CVA tenderness Skin General skin exam: no rashes or lesions noted Neuro General: patient oriented x3 and moves all extremities Extrem General: Yes no pedal edema Results Reviewed Nephrology Results: Hgb, (14.0-18.0) 12.2 g/dl L 10/25/24 WBC, (4.8-10.8) 12.7 X10*3/uL H 10/25/24 Plt Count, (160-400) 372 X10*3/uL 10/25/24 Sodium, (135-145) 136 mmol/L 10/25/24 Potassium, (3.3-5.1) 4.2 mmol/L 10/25/24 Chloride, (96-108) 105 mmol/L 10/25/24 Carbon Dioxide, (22-29) 25 mmol/L 10/25/24 BUN, (9-16) 17 mg/dL H 10/25/24 Creatinine, (0.5-1.4) 1.26 mg/dL 10/25/24 Calcium, (8.4-10.2) 8.7 mg/dL 10/25/24 Urine Creatinine 50.99 mg/dL 11/02/24 Renal US 10/18/24 Assessment & Plan Assessment & Plan (1) Hypertension: Code(s): I10 - Essential (primary) hypertension Category: Medical Qualifiers: Hypertension type: primary hypertension Qualified Code(s): I10 - Essential (primary) hypertension (2) Renal calculi: Code(s): N20.0 - Calculus of kidney Category: Medical (3) CKD stage 3a, GFR 45-59 ml/min: Code(s): N18.31 - Chronic kidney disease, stage 3a Category: Medical Plan Frantz has a chronic kidney disease for a long time. His serum creatinine is at baseline. He was asked to repeat blood work today. He has history of renal calculus. He has been taking Farxiga. His blood sugar control has not been optimal. He has history of gastric cancer but never had proteinuria. He is not clinically hypervolemic. He has no nausea, vomiting or diarrhea. I encouraged him not to take any nonsteroidal anti-inflammatories and maintain good hydration. He does not need a renal biopsy now. I did not make any other medication changes today. All questions answered. Follow-up appointment given Orders: Orders Blood Urea Nitrogen Today I10 - Essential (primary) hypertension, N18.31 - Chronic kidney disease, stage 3a, N20.0 - Calculus of kidney Creatinine Today I10 - Essential (primary) hypertension, N18.31 - Chronic kidney disease, stage 3a, N20.0 - Calculus of kidney Protein Creatinine Ratio, Ur 6 Months I10 - Essential (primary) hypertension, N18.31 - Chronic kidney disease, stage 3a, N20.0 - Calculus of kidney Creatinine 6 Months I10 - Essential (primary) hypertension, N18.31 - Chronic kidney disease, stage 3a, N20.0 - Calculus of kidney Protein Creatinine Ratio, Ur Today I10 - Essential (primary) hypertension, N18.31 - Chronic kidney disease, stage 3a, N20.0 - Calculus of kidney Electrolytes Today I10 - Essential (primary) hypertension, N18.31 - Chronic kidney disease, stage 3a, N20.0 - Calculus of kidney Calcium Today I10 - Essential (primary) hypertension, N18.31 - Chronic kidney disease, stage 3a, N20.0 - Calculus of kidney Electrolytes 6 Months I10 - Essential (primary) hypertension, N18.31 - Chronic kidney disease, stage 3a, N20.0 - Calculus of kidney Blood Urea Nitrogen 6 Months I10 - Essential (primary) hypertension, N18.31 - Chronic kidney disease, stage 3a, N20.0 - Calculus of kidney Coding Level of Care Code Est Pt Level 4 (14127) Diagnoses Primary hypertension I10 Hypertension type: primary hypertension Renal calculi N20.0 CKD stage 3a, GFR 45-59 ml/min N18.31
[2025-01-04 09:28] VITALS: BP 100/60; PULSE 56; O2SAT 98; BMI 31.4
--- OUTSIDE RECORDS SUMMARY | 2025-01-04 09:34 | XMS_ITS | Clinical Summary ---
Author Organization [facility] Facility Address [address] [place] [address], [place] [address] Care Team Providers Care Plastic Roller Name Role Phone Sindy Obrien MD Primary [...] patient's age to complete this topic [place] [address] ([id number]) [facility] ([id number]) Care Teams Plastic Roller Relationship Specialty Start Date End Date Sindy Obrien MD [address] [place] [phone] PCP - General Internal Medicine 01/01/22
--- OUTSIDE RECORDS SUMMARY | 2025-01-04 09:34 | XMS_ITS | Patient Health Record ---
Author Organization [facility] Address [address] [place] [address] Care Team Providers Care Electronic Tester Name Role Phone Teodora Gomez Primary Care Provider Dusty Stoner Unavailable [phone] Reason For Referral No Information Medications Medication [...] Risk Notes Problem Liver function tests abnormal (512454245) Abnormal liver function tests (790.6) Active confirmed Problem Computed tomography of abdomen abnormal (finding) (4523005818319 9107) Abnormal computed tomography of gastrointestinal tract (793.4) Active confirmed Plan Of Treatment Future Test Test Name Order Date UPPER GI ENDOSCOPY 09/29/2013 Insurance Providers Payer Name Payer Address Payer Phone Subscriber Number Group Number Insured Name Patient Relationship to Insured Coverage Start Date Coverage End Date [facility] [address] [place] [phone] [id number] STACEY SANCHEZABRAHAN SALVADORIX Self - patient is the insured Medical (General) History Medical History History ICD Code NIDDM HTN Hyperlipidemia kidney stones Denies [place],CVA,Lung disease,renal disease Describes an EGD and Colonos copy at [facility] in approx 2011-reports they were OK as far as he knows Surgical History Surgery Date(Month/Year) Right leg surgey-plate in upper thigh Fatty tumor removal in back hernia repair
== END 2025-01-04 09:39 | disposition home or self-care (01) ==
LOC: HO.HKA 09:07
PROVIDERS: PCP Internal Medicine; Visit Provider Internal Medicine Nephrology
DX: I10 Essential (primary) hypertension (principal); N20.0 Calculus of kidney; N18.31 Chronic kidney disease, stage 3a
CPT/HCPCS: 99214

== ENCOUNTER 2025-02-09 10:49 | Outpatient (AMB) | payer OTHER, SELFPAY ==
--- NOTE | 2025-02-09 11:01 | A.OFFVIS_ITS ---
Vital Signs 02/09/25 11:05 Height 5 ft 3 in Weight 179 lb BMI 31.7 BP 117/71 Blood Pressure Location Lt brachial Position Sitting Pulse 80 Pulse Oximetry (%) 97 Oxygen Delivery Method Room Air Intake Visit Reasons: Anemia Intake Note: Patient follow up for Anemia. Patient cc: dizziness on and off. Denies any other GI issues. Public Health Assistant Required: Yes Public Health Assistant Name: [facility] Interpeter Accompanied by: Self / Same As Patient Allergies No Known Allergies (No Known Allergies*) Allergy (Verified 02/10/25 13:46) Medication List - Last Reconciled 02/09/25 by Trenton Mueller MD amlodipine (Norvasc) 10 mg PO DAILY atorvastatin 20 mg PO BEDTIME calcium polycarbophil 1,250 mg PO DAILY carvedilol 12.5 mg PO BID cyanocobalamin (vitamin B-12) 1,000 mcg PO DAILY dapagliflozin propanediol (Farxiga) 10 mg PO DAILY fluticasone propionate 50 mcg/actuation (Flonase Allergy Relief) 2 sprays intranasal DAILY glipizide ER (Glucotrol XL) 10 mg PO DAILY insulin glargine (Lantus Solostar U-100 Insulin) 36 units subcut BID meclizine 25 mg PO TID PRN mirtazapine 15 mg PO BEDTIME olmesartan 5 mg PO DAILY oxycodone 5 mg PO Q8H PRN potassium citrate ER 20 mEq (2 x 10 mEq (1,080 mg)) PO BID 90 days prednisone 10 mg PO DIRECTED 7 days HPI HPI Anemia: Details: GI Clinic visit for this 74 year old Guyanese-speaking male followed in GI for Gastric adenoca (diagnosed in 07/[address] Ferrera in Oncology), 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 Abdominal CT scan showed: 1. A cause for the patient's abdominal pain and nausea has not been found. 2. Incidental note made of an enlarged fatty liver, stable benignhepatic cysts, bilateral nonobstructing nephrolithiasis, prior partialgastrectomy with gastrojejunal anastomosis, mild BPH and degenerative changes in the spine. TODAY'S VISIT ?[facility] [employer] Patient cc: abdominal pain on and off with some Gastritis. Denies abdominal pain. Complains of dizziness for the past few days Can feel dizzy if he is driving or sitting - can come all of a sudden. Denies CP or SOB. Denies recent change in bowel habits Scheduled to see his PCP today PAST VISIT: Doing so so Feeling regular Notes intermittent lower abd pain which comes and goes Complains of left sided abdominal pain which is constant. Takes pain medication which helps the pain briefly and then pain recurs. Denies fever or chills. Hx of renal stones - this pain is different. Has a BM twice a day - denies hard stools or straining. Left sided abd pain for the past month which comes and goes and can last for 30 or 45 minutes. Pain is 8/10 in inetnsity and feels like pressure. Can have pain with eating and while lying down. Denies recent constipation or diarrhea. Denies wt loss Appetite is normal Continues to have hoarseness EGD and biopsy results reviewed with the pt. 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 Denies cough , sore throat or SOB. Denies heartburn, dysphagia or abdominal pain Taking medications for constipation and has a BMs are variable. Denies constipation ? ? Complains of constipation related to oral iron. On some days he feels bloated and unable to eat any more after he takes a tablespoonful of rice. Denies heartburn or dysphagia. Takes stool softeners prn for constipation which are helpful? ? ? EGD results reviewed. ?Finished XRT and declined additional chemo. ?? ? I am doing good . ? Appetite is good and weight is stable between 142 & 149 lbs. ? ? ? Denies abdominal pain or constipation. ? At the last GI visit he reported his constipation has resolved and straining with stools has improved with taking fiber twice daily, patient states that he has normal bowel movements daily and had no issues at that isaías ?LABS IN [facility]: 11/22/19 H&H of 10.1 and 33.7, platelet 257, INR 1, normal LFTs, CEA 1.8 ? 06/28/19 2/3 stool occult blood were positive. ? IMAGING STUDIES:09/07/[address] scan showed: No CT evidence of metastatic disease chest, abdomen and pelvis. Stable postoperative stomach, patient with history of gastric cancer. Redemonstration enlarged heterogeneous thyroid with possible right lower lobe nodule for which ultrasound was previously recommended but to my knowledge has not been performed. 3-4mm distal right ureteral calculus without associated proximal hydroureteronephrosis. ?ENDOSCOPIC STUDIES: 01/23/23 COLONOSCOPY SHOWED: Three small polyps removed Moderate diverticulosis seen in the sigmoid colon Moderate hemorrhoids on retroflexed exam. Plan: Repeat Colonoscopy interval based on path results - in 3 years if polyps are adenomatous and 10 years if polyps are hyperplastic (needs adult colonoscope for future colonoscopies and bisacodyl tablets daily starting 5 days prior to colonoscopy appointment). 10/24/22 EGD AND COLON SHOWED:Endoscopy Findings: STOMACH: Diffuse gastric erythema - biopsies were obtained from the gastric body.? Normal appearing sarah en Y anastomosis at 50 cms - biopsies were obtained from the anastomosis. Colonoscopy Findings: Procedure was discontinued due to poor prep Plan: Pt will be rescheduled for Colonoscopy after re-discussing the prep with the pt 09/30/21 EGD SHOWED: STOMACH: Diffuse gastric erythema - biopsies were obtained from the gastric body.? Normal appearing sarah en Y anastomosis at 50 cms - biopsies were obtained from the anastomosis. A 2 cms linear erosion in the gastric body along the greater curvature? - biopsied. BIOPSIES SHOWED: A.? Stomach, anastomosis, biopsy:? Mixed gastric and small intestinal mucosa with chronic active inflammation; no Helicobacter organisms identified. B.? Stomach, body greater curvature, biopsy:? Oxyntic mucosa with moderate chronic inactive inflammation; no Helicobacter organisms seen. C.? Stomach, body lesser curvature, biopsy:? Oxyntic mucosa with moderate chronic inactive inflammation; no Helicobacter organisms seen. D.? Stomach, erosion, biopsy:? Oxyntic mucosa with mild chronic, focally active, inflammation; no Helicobacter organisms seen. COMMENT: No malignancy is identified. 07/2019 EGD AND COLON SHOWED:? STOMACH: Gastritis and a 2 cms pre-pyloric ulcer? Colonoscopy Two medium-sized adenomatous polyps (one was 10 mm in size) were removed and large hemorrhoids were detected on retroflexed exam. ? Iron def anemia likely related to gastric ulcer - biopsies obtained to rule out recurrent GIST. ? Repeat Colonoscopy interval based on path results - in 3-5 years if polyps are adenomatous and 10 years if polyps are hyperplastic. ? BIOPSIES SHOWED: ? A. Small bowel, biopsy: Duodenal mucosa within normal limits. ? B. Stomach, ulcer, biopsy: Adenocarcinoma, moderate-poorly differentiated. ? C. Stomach, antrum, biopsy: Antral-type mucosa with moderate chronic inactive inflammation and intestinal metaplasia; no dysplasia seen; no Helicobacter organisms seen. ? D. Colon, transverse, polypectomy: Fragments of tubular adenoma; no high grade dysplasia or carcinoma seen. ? E. Colon, sigmoid, polypectomy: Fragments of tubular adenoma; no high grade dysplasia or carcinoma seen. ? F. Rectum, polypectomy: Hyperplastic mucosal polyp. ? COMMENT: HER2 immunostain is being performed on the gastric adenocarcinoma; results will be addended [facility] Medical History Renal calculi Diabetes History of gastrectomy History of colon polyps Gastrointestinal stromal tumor (GIST) (~2014) Gastric adenocarcinoma Hydrocele Gastritis Vitamin B12 deficiency Hypercholesterolemia Hypertension Depression Surgical History H/O lithotripsy Hx of resection of stomach Hx of esophagogastroduodenoscopy Hx of endoscopy History of hernia repair History of back surgery (~2016) History of colonoscopy (~07/22/19) History of esophagogastroduodenoscopy (EGD) (07/22/19) Family History Father No problems noted. Mother History of cancer Social History Household Members: Spouse Housing: Apartment Are you a primary pharmacist critical care to a significant other at home: No Do you presently have visiting nurse or other home services: No Alcohol intake: former Patient Tobacco Use Status: Former Tobacco user Tobacco use type: Cigarette Years Smoked: 35 Have you been hit, kicked, punched, or otherwise hurt by someone within the past year? If so, by whom?: No Advance Directives: No Advance Directives Information Provided: Yes Advance Directives Date on File: 06/27/24 service: No Current occupational status: retired Physical Exam Vital Signs: Last Vital Signs Pulse 80 02/09/25 11:05 BP 117/71 02/09/25 11:05 Pulse Ox 97 02/09/25 11:05 Oxygen Delivery Method Room Air 02/09/25 11:05 BMI result Body Mass Index 31.7 Const General: healthy appearing and no acute distress Nutritional Appearance: obese Orientation/consciousness: patient oriented x3 Limitations: language barrier HEENT Head: Yes normal to inspection Ears: hearing grossly normal bilaterally Eyes Sclerae: sclerae normal Pupils: Equal, round and reactive pupils present Neck Neck: Yes normal visual inspection Chest Chest palpation & inspection: normal inspection of the chest Resp Effort & Inspection: normal respiratory effort Auscultation: clear to auscultation bilaterally Cardio Palpation: normal PMI Rate: regular rate Rhythm: regular rhythm Heart sounds: S1 normal heart sound present, S2 normal heart sound present and no murmurs GI Palpation (GI): Soft to palpation, nontender and No hepatosplenomegaly present Auscultation: normal bowel sounds Rectal Exam - Male: Yes deferred Skin General skin exam: no rashes or lesions noted Neuro General: patient oriented x3, gait normal and moves all extremities Cranial nerves: Yes Equal, round and reactive pupils present Psych Appearance: grossly normal Mental Status: mental status grossly normal Assessment & Plan Assessment & Plan (1) Gastric adenocarcinoma: Code(s): C16.9 - Malignant neoplasm of stomach, unspecified Category: Medical (2) Gastritis: Code(s): K29.70 - Gastritis, unspecified, without bleeding Category: Medical (3) History of colon polyps: Comment: 07/28 Two medium sized adenomatous polyps were removed during colonoscopy. Repeat colonoscopy is advised in 3 years. 01/2023 Three polyps removed on FU colon - Fu advised in 3 yrs (due in 01/2026). Code(s): Z86.010 - Personal history of colon polyps Category: Medical Plan 74 year old Guyanese-speaking male with diabetes, hypertension, hypercholesterolemia, vitamin B12 deficiency, right renal calculi, hydrocele, history of GIST (status post removal in 2014) hospitalized in the past with worsening anemia. 07/22/19 Upper endoscopy showed a 2 cm pre-pyloric ulcer with narrowing of pylorus - adenocarcinoma on biopsies. ?Staging workup included PET-CT performed 09/01/2019 showed no evidence of metastatic disease. Focal SUV max of 3.9 noted along proximal duodenum without underlying CT abnormality. On 09/14/2019 he underwent exploratory laparotomy with lysis of adhesions, distal gastrectomy with omentectomy, end-to-side Sarah-en-Y gastrojejunostomy. Pathology: Invasive adenocarcinoma, diffuse type, poorly differentiated with signet ring features. Tumor site in antrum/lesser curvature, size 1.6 x 1.1 x 0.5 cm, grade 3, tumor invades the muscularis propria. All margins negative for invasive carcinoma. Thirteen regional lymph nodes examined, 3 positive, lymphovascular invasion present, extensive. Perineural invasion present. Final pathological stage pT2 pN2. Stage II. HER2 IHC 2+, negative by FISH amplification ?Genetic screening for inherited cancer syndromes was negative for any germ line mutations. ? He started postoperative chemo/radiation (bolus and infusional 5 FU/leucovorin) therapy on 10/26/2019. Two cycles of chemotherapy initially followed by concurrent chemo RT and 4 additional cycles of chemotherapy planned. He did not tolerate chemotherapy with radiation and declined post radiation chemotherapy.? He has agreed to be monitored with physical examination, blood work and imaging as deemed necessary. 10/2021 EGD showed normal appearing sarah en Y anastomosis at 50 cms - biopsies obtained from the anastomosis were negative for malignancy and H pylori. Pt was advised to increase pantoprazole to 40 mg twice daily. 10/2022 EGD (FU of Gastric cancer) and same day colonoscopy (FU of colon polyps) were performed in results as noted above 11/27/22 PT complains of lower abdominal pain and advised to schedule an Abd- Pelvic CT scan. 01/2023 Colonoscopy was performed and three polyps were removed 09/07/[address] scan showed: No CT evidence of metastatic disease chest, abdomen and pelvis. Stable postoperative stomach, patient with history of gastric cancer. Redemonstration enlarged heterogeneous thyroid with possible right lower lobe nodule for which ultrasound was previously recommended but to my knowledge has not been performed. Order placed for thyroid ultrasound Pt is scheduled for an EGD on 02/10/25 for FU of Gastric Ca. Follow-up in 4 months - scheduled 06/15/25 Coding Level of Care Code Est Pt Level 3 (87886) Diagnoses Gastric adenocarcinoma C16.9 Gastritis K29.70 History of colon polyps Z86.010 Time Spent (min) 18
[2025-02-09 11:05] VITALS: BP 117/71; PULSE 80; O2SAT 97; BMI 31.7
--- OUTSIDE RECORDS SUMMARY | 2025-02-09 12:25 | XMS_ITS | Encounter Summary ---
Author Organization [employer] Address [address] [place] [address] Care Team Providers Care Sales Research Analyst Name Role Phone Sindy Obrien MD Primary Care Provide r Edgard Dasilva PharmD Unavailable [phone] Reason for Visit * Reason Comments Med Refill Encounter Details Date Type Department Care Team ([facility] st Contact Info) Description 11/30/2024 Refill [facility] [address], [place] [phone] Sindy Obrien MD [address] [place] [address] Chronic right shoulder pain Social History Tobacco [...] 1:45 PM EDT Office Visit [facility] [address] [place] [phone] Sindy Obrien MD [address] [place] [phone] Arrived 02/23/2025 1:00 PM EDT Clinical Support [address] [address] 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 RN 03/02/2025 10:00 AM EDT Medication Management [facility] [address] [place] [phone] Edgard Dasilva, Nithya [address] [place] [phone] documented as of this encounter Goals Goal [...] as of this encounter Care Teams Sales Research Analyst Relationship Specialty Start Date End Date Sindy Obrien MD [address] [place] [address] PCP - General Family Medicine 03/28/19 Edgard Dasilva, AtiyaD [address] [place] [address] Pharmacist Pharmacy 12/23/24 documented as of this encounter
--- OUTSIDE RECORDS SUMMARY | 2025-02-09 12:25 | XMS_ITS | Encounter Summary ---
Author Organization [employer] Address [address] [facility] 7t [place] [address] Care Team Providers Care Music Composer Name Role Phone Sindy Obrien MD Primary Care Provide r Edgard Dasilva PharmD Unavailable Encounter Details Date Type Department Care Team (Late st Contact Info) Description 05/20/2022 Orders Only [facility] MED[facility] [address] [place] [address] Bhakti Paredes DO [address] [place] [address] Hypertension, unspecified type (Primary Dx) Social History [...] Description 02/09/2025 1:45 PM EDT Office Visit [facility] [address] [place] [address] Sindy Obrien MD [address] [place] [address] Arrived 02/23/2025 1:00 PM EDT Clinical Support [address] [phone] 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 RN 03/02/2025 10:00 AM EDT Medication Management [address] [phone] Edgard Dasilva, AtiyaD [address] [place] [address] [phone] documented as of this encounter Procedures Procedure Name Priority Date/Time Associated Diagnosis Comments BASIC METABOLIC PANEL Routine 07/08/2022 2:26 PM EST Hypertension, unspecified type documented in this encounter Results * (ABNORMAL) Basic Metabolic Panel (07/08/2022 2:26 PM EST) Glucose 444(H) 65 - 139 mg/dL [facility] Comment: Verified by repeat analysis. Non-fasting reference interval Urea Nitrogen (BUN) 14 7 - 25 mg/dL [facility] Creatinine, Serum 1.23 0.70 - 1.28 mg/dL [facility] eGFR 62 > OR = 60 mL/min/1 .73m2 [facility] Comment: The eGFR is based on the CKD-EPI 2020 equation. To calculate the new eGFR from a previous Creatinine or Cystatin C result, go to https://www.kidney.org/professionals/ kdoqi/gfr%5Fcalculator BUN/Creatinine Ratio NOT APPLICABLE 6 - 22 (calc) [facility] Sodium 132(L) 135 - 146 mmol/L [facility] Potassium 4.3 3.5 - 5.3 mmol/L [facility] Chloride 96(L) 98 - 110 mmol/L [facility] Carbon Dioxide 29 20 - 32 mmol/L [facility] Calcium 9.3 8.6 - 10.3 mg/dL [facility] Blood Venous blood specimen / Unknown 07/08/2022 2:26 PM EST 07/08/2022 2:27 PM EST Narrative [facility] - 07/09/2022 12:11 PM EST FASTING:NO FASTING: NO us Bhakti Reggie DO LAB BLOOD ORDERABLES Final R esult [facility] [address] [facility], [facility], [place] [address] [facility] [address] [facility], ([address]) [place] [address] documented in this encounter Visit Diagnoses Diagnosis Hypertension, unspecified type- Primary documented in this encounter Care Teams Music Composer Relationship Specialty Start Date End Date Sindy Obrien MD [address] [place] [address] PCP - General Family Medicine 03/28/19 Edgard Dasilva, PharmD [address] [place] [address] Pharmacist Pharmacy 12/23/24 documented as of this encounter
--- OUTSIDE RECORDS SUMMARY | 2025-02-09 12:25 | XMS_ITS | Clinical Summary ---
Author Organization [facility] Facility Address [address] [place] [address], [place] [address] Care Team Providers Care Mailing Machine Helper Name Role Phone Sindy Obrein MD Primary Care Provide r Allergies No [...] patient's age to complete this topic [place] [address] ([id number]) [facility] ([id number]) Care Teams Mailing Machine Helper Relationship Specialty Start Date End Date Sindy Obrien MD [address] [place] [phone] PCP - General Internal Medicine 01/01/22
--- OUTSIDE RECORDS SUMMARY | 2025-02-09 12:25 | XMS_ITS | Encounter Summary ---
Author Organization [employer] Address 75 [facility] 7t [place] [address] Care Team Providers Care Paraprofessional Aide Teacher Name Role Phone Sindy Obrien MD Primary Care Provide r Edgard Dasilva PharmD Unavailable [phone] Encounter Details Date Type Department Care Team (Late st Contact Info) Description 02/13/2023 Orders Only [facility] MEDICINE [address] [place] [address] ProviderOren MD Social History Tobacco Use Types [...] Description 02/09/2025 1:45 PM EDT Office Visit [facility] [address] [place] [address] Sindy Obrien MD [address] [place] [address] Arrived 02/23/2025 1:00 PM EDT Clinical Support [facility] [address] [place] [address] 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 RN 03/02/2025 10:00 AM EDT Medication Management [facility] [address] [place] [address] Edgard Dasilva, PharmD [address] [place] [address] documented as of this encounter Procedures Procedure [...] documented as of this encounter Care Teams Paraprofessional Aide Teacher Relationship Specialty Start Date End Date Sindy Obrien MD [address] [place] [address] PCP - General Family Medicine 03/28/19 Edgard Dasilva, PharmD [address] [place] [address] Pharmacist Pharmacy 12/23/24 documented as of this encounter
--- OUTSIDE RECORDS SUMMARY | 2025-02-09 12:25 | XMS_ITS | Encounter Summary ---
Author Organization [employer] Address [address] [facility] [address] 7t [place] [address] Care Team Providers Care Tinware Lithograph Press Operator Name Role Phone Sindy Obrien MD Primary Care Provide r Edgard Dasilva PharmD Unavailable [phone] Reason for Visit * Reason Comments Med Refill Encounter Details Date Type Department Care Team ([facility] st Contact Info) Description 04/26/2023 Refill [facility] MEDICINE [address] [place], [place] [phone] Sindy Obrien MD 230 [place] [address] HTN (hypertension), benign Social History Tobacco Use [...] Description 02/09/2025 1:45 PM EDT Office Visit [facility] MEDICINE [address] [place] [address] Sindy Obrien MD [address] [place] [address] Arrived 02/23/2025 1:00 PM EDT Clinical Support [address] [address] 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 RN 03/02/2025 10:00 AM EDT Medication Management [address] [address] Edgard Dasilva PharmD [address] [place] [address] documented as of this encounter Visit Diagnoses Diagnosis HTN (hypertension), benign Essential hypertension, benign documented in this encounter Additional Health Concerns Assessment Noted Time PHQ-9 Depression Total Score: 0 10/24/19 23 3:05 PM EDT documented as of this encounter Care Teams Tinware Lithograph Press Operator Relationship Specialty Start Date End Date Sindy Obrien MD [address] [place] [address] PCP - General Family Medicine 03/28/19 Edgard Dasilva, PharmD [address] [place] [address] Pharmacist Pharmacy 12/23/24 documented as of this encounter
--- OUTSIDE RECORDS SUMMARY | 2025-02-09 12:25 | XMS_ITS | Encounter Summary ---
Author Organization [employer] Address [address] [facility] [address] 7t [place] [address] Care Team Providers Care Brake Specialist Name Role Phone Snidy Obrien MD Primary Care Provide r Edgard Dasilva PharmD Unavailable [phone] Reason for Visit * Reason Comments Med Refill Encounter Details Date Type Department Care Team (Late st Contact Info) Description 05/20/2024 Refill [facility] [address] [place], [place] [phone] Sindy Obrien MD [address] [place] [address] HTN (hypertension), benign; Type 2 diabetes mellitus with hyperglycemia, with long-term current use of insulin ([facility]) Social History Tobacco Use Types Packs/Day [...] Description 02/09/2025 1:45 PM EDT Office Visit [facility] MEDICINE [address] [place] [address] Sindy Obrien MD [address] [place] [address] Arrived 02/23/2025 1:00 PM EDT Clinical Support [address] [address] 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 RN 03/02/2025 10:00 AM EDT Medication Management [address] [address] Edgard Dasilva, AtiyaD [address] [place] [address] documented as of this encounter Goals Goal Patient Goal Type Associated Problems Recent Progress Patient-Stated? Author Hemoglobin A1c < 8 Result Component 9.3(11/02/2024 10:10 AM EDT) No Caroline Neri, Nithya documented as of this encounter Visit Diagnoses Diagnosis HTN (hypertension), benign Essential hypertension, benign Type 2 diabetes mellitus with hyperglycemia, with long-term current use of insulin ([facility]) documented in this encounter Additional Health Concerns Assessment Noted Time PHQ-9 Depression Total Score: 0 10/24/19 23 3:05 PM EDT documented as of this encounter Care Teams Brake Specialist Relationship Specialty Start Date End Date Sindy Obrien MD [address] [place], [place] [phone] PCP - General Family Medicine 03/28/19 Edgard Dasilva, AtiyaD [address] [place] [address] Pharmacist Pharmacy 12/23/24 documented as of this encounter
--- OUTSIDE RECORDS SUMMARY | 2025-02-09 12:25 | XMS_ITS | Encounter Summary ---
Author Organization [employer] Address 75 [facility] 7t [place] [address] Care Team Providers Care Mail Room Name Role Phone Sindy Obrien MD Primary Care Provide r Edgard Dasilva PharmD Unavailable [phone] Reason for Visit * Reason Onset Date Comments FYI 11/18/2023 Encounter Details Date Type Department Care Team ([facility] st Contact Info) Description 11/18/2023 Telephone [facility] MED[facility]INE [address] [place] [address] Sindy Obrien MD [address] [place], [place] [phone] FYI Social History Tobacco Use Types Packs/Day [...] - 11/18/2023 10:58 AM EDT Tc from [facility] with Dr Leslie (orthopedics) calling to inform they are going to be prescribing 2 weeks of Oxy 10MG after surgery. documented in this encounter Plan of Treatment Upcoming Encounters Date Type Department Care Team (Late st Contact Info) Description 02/09/2025 1:45 PM EDT Office Visit [facility] MEDICINE [address] [place] [address] Sindy Obrien MD [address] [place] [address] Arrived 02/23/2025 1:00 PM EDT Clinical Support [facility] [address] [place] [address] 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 RN 03/02/2025 10:00 AM EDT Medication Management [address] [address] Edgard Dasilva, Nithya [address] [place] [address] documented as of this encounter Goals Goal [...] documented as of this encounter Care Teams Mail Room Relationship Specialty Start Date End Date Sindy Obrien MD [address] [place] [address] PCP - General Family Medicine 03/28/19 Edgard Dasilva, AtiyaD [address] [place] [address] Pharmacist Pharmacy 12/23/24 documented as of this encounter
--- OUTSIDE RECORDS SUMMARY | 2025-02-09 12:25 | XMS_ITS | Encounter Summary ---
Author Organization [employer] Address [address] [facility] [address] 7t [place] [address] Care Team Providers Care Dress Fitter Name Role Phone Sindy Obrien MD Primary Care Provide r Edgard Dasilva PharmD Unavailable [phone] Encounter Details Date Type Department Care Team ([facility] st Contact Info) Description 02/02/2025 Orders Only [facility] MEDICINE [address] [place] [address] Sindy Obrien MD [address] [place], [place] [phone] Social History Tobacco Use Types Packs/Day Years [...] Description 02/09/2025 1:45 PM EDT Office Visit [facility] MEDICINE [address] [place] [address] Sindy Obrien MD [address] [place] [address] Arrived 02/23/2025 1:00 PM EDT Clinical Support [address] [address] 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 RN 03/02/2025 10:00 AM EDT Medication Management [facility] MEDICINE [address] [place] [address] Edgard Dasilva, Nithya [address] [place] [address] documented as of this encounter Goals Goal [...] documented as of this encounter Care Teams Dress Fitter Relationship Specialty Start Date End Date Sindy Obrien MD [address] [place] [address] PCP - General Family Medicine 03/28/19 Edgard Dasilva, AtiyaD [address] [place] [address] Pharmacist Pharmacy 12/23/24 documented as of this encounter
--- OUTSIDE RECORDS SUMMARY | 2025-02-09 12:25 | XMS_ITS | Patient Health Record ---
Author Organization [facility] Address [address] [place] [address] Care Team Providers Care Cost Manager Name Role Phone Teodora Gomez Primary Care Provider Dusty Stoner Unavailable [phone] Reason For Referral No Information Medications Medication [...] Risk Notes Problem Liver function tests abnormal (625122825) Abnormal liver function tests (790.6) Active confirmed Problem Computed tomography of abdomen abnormal (finding) (3684997386134 9107) Abnormal computed tomography of gastrointestinal tract (793.4) Active confirmed Plan Of Treatment Future Test Test Name Order Date UPPER GI ENDOSCOPY 09/29/2013 Insurance Providers Payer Name Payer Address Payer Phone Subscriber Number Group Number Insured Name Patient Relationship to Insured Coverage Start Date Coverage End Date [facility] [address] [place] [address] [id number] REDJoceline SANCHEZABRAHAN SALVADORIX Self - patient is the insured Medical (General) History Medical History History ICD Code NIDDM HTN Hyperlipidemia kidney stones Denies RI,CVA,Lung disease,renal disease Describes an EGD and Colonos copy at [facility] in approx 2011-reports they were OK as far as he knows Surgical History Surgery Date(Month/Year) Right leg surgey-plate in upper thigh Fatty tumor removal in back hernia repair
--- OUTSIDE RECORDS SUMMARY | 2025-02-09 12:25 | XMS_ITS | Encounter Summary ---
Author Organization [employer] Address [address] [facility] [address] 7t [place] [address] Care Team Providers Care Pastry Mixer Name Role Phone Sindy Obrien MD Primary Care Provide r Edgard Dasilva PharmD Unavailable [phone] Encounter Details Date Type Department Care Team ([facility] st Contact Info) Description 09/03/2023 Orders Only [facility] MEDICINE [address] [place] [address] Sindy Obrien MD [address] [place], [place] [phone] Chronic right shoulder pain (Primary Dx) Social [...] Description 02/09/2025 1:45 PM EDT Office Visit [facility] MEDICINE [address] [place] [address] Sindy Obrien MD [address] [place] [address] Arrived 02/23/2025 1:00 PM EDT Clinical Support [address] [address] 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 RN 03/02/2025 10:00 AM EDT Medication Management [address] [address] Edgard Dasilva, PharmD [address] [place] [address] documented as of this encounter Procedures Procedure [...] PM EDT Narrative 09/08/2023 11:17 AM EDT [address] [address] [address] Scan Report Signed Patient: Frantz Fink MR#: [id number] : 1950 Acct:[id number] Age/Sex: 73 / M ADM Date: 09/07/23 Loc: HO.CT Attending Dr: Christa Ferrera MD Ordering Physician: Christa Ferrera MD Date of Service: 09/07/23 Procedure(s): CT chest w IV con Accession Number(s): [id number] cc: Sindy Obrien MD; Christa Ferrera MD [...] technique TOTAL EXAM DLP: 392 mGy-cm FINDINGS: DAIRY FEED MIXING OPERATOR: Enlarged superior mediastinum. Clear lungs. Nonobstructive bowel [...] in OV> 09/08/23 1113 DD/ 1227 TD/TT: Gang Plank Workman: Procedure Note Donotuseinterpreter, Image - 09/08/[address] [address] [address] Scan Report Signed Patient: Frantz FinkMR#: [id number] : 1Acct:[id number] Age/Sex: 73 / MADM Date: 09/07/23 Loc: HO.CT Attending Dr: Christa Ferrera MD Ordering Physician: Christa Ferrera MD Date of Service: 09/07/23 Procedure(s): CT chest w IV con Accession Number(s): [id number] cc: Sindy Obrien MD; Christa Ferrera MD [...] technique TOTAL EXAM DLP: 392 mGy-cm FINDINGS: DAIRY FEED MIXING OPERATOR: Enlarged superior mediastinum. Clear lungs. Nonobstructive bowel [...] in OV> 09/08/23 1113 DD/ 1227 TD/TT: Gang Plank Workman: us [facility] External Provider IMG CT PROCEDURES Final Result * Stress test with myocardial perfusion (09/04/2023 8:15 AM EDT) 09/04/2023 8:15 AM EDT Narrative [facility] IMAGING - 09/04/2023 3:44 PM EDT [address] [address] Nuclear Medicine Report Signed Patient: Frantz Fink MR#: [id number] : 1950 Acct:[id number] Age/Sex: 73 / M ADM Date: 09/03/23 Loc: [facility] Attending Dr: Amanda SCOTT Ordering Physician: Amanda De La Paz Date of Service: 09/03/23 Procedure(s): NM cardiolite stress test Accession Number(s): [id number] cc: Sindy Obrien MD; Amanda De La [...] in OV> 09/04/23 1540 DD/ 0815 TD/TT: Gang Plank Workman: Procedure Note Donotuseinterpreter, Image - 09/04/[address] [address] Nuclear Medicine Report Signed Patient: Tyson Fink#: [id number] : 1950cct:[id number] Age/Sex: 73 / MADM Date: 09/03/23 Loc: [facility] Attending Dr: Amanda SCOTT Ordering Physician: Amanda De La Paz Date of Service: 09/03/23 Procedure(s): NM cardiolite stress test Accession Number(s): [id number] cc: Sindy Obrien MD; Amanda De La [...] in OV> 09/04/23 1540 DD/ 0815 TD/TT: Gang Plank Workman: [facility] External Provider CV STRE SS PROCEDURES Edited Result - Final [facility] [address] [place] [address] documented in this encounter Visit Diagnoses Diagnosis Chronic right shoulder pain- Primary Pain in joint, shoulder region documented in this encounter Additional Health Concerns Assessment Noted Time PHQ-9 Depression Total Score: 0 10/24/19 23 3:05 PM EDT documented as of this encounter Care Teams Pastry Mixer Relationship Specialty Start Date End Date Sindy Obrien MD [address] [place] [address] PCP - General Family Medicine 03/28/19 Edgard Dasilva, Nithya [address] [place] [address] Pharmacist Pharmacy 12/23/24 documented as of this encounter
--- OUTSIDE RECORDS SUMMARY | 2025-02-09 12:25 | XMS_ITS | Encounter Summary ---
Author Organization [employer] Address [address] [facility] [address] 7t [place] [address] Care Team Providers Care Meat Dresser Name Role Phone Sindy Obrien MD Primary Care Provide r Edgard Dasilva PharmD Unavailable [phone] Reason for Visit * Reason Comments Med Refill Encounter Details Date Type Department Care Team (Late st Contact Info) Description 09/03/2023 Refill [facility] MEDICINE 230 [place], [place] [phone] Sindy Obrien MD [address] [place] [address] Chronic right shoulder pain Social History Tobacco [...] Description 02/09/2025 1:45 PM EDT Office Visit [facility] MEDICINE [address] [place] [address] Sindy Obrien MD [address] [place] [address] Arrived 02/23/2025 1:00 PM EDT Clinical Support [address] [address] 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 RN 03/02/2025 10:00 AM EDT Medication Management [address] [address] Edgard Dasilva PharmD [address] [place] [address] documented as of this encounter Visit Diagnoses Diagnosis Chronic right shoulder pain Pain in joint, shoulder region documented in this encounter Additional Health Concerns Assessment Noted Time PHQ-9 Depression Total Score: 0 10/24/19 23 3:05 PM EDT documented as of this encounter Care Teams Meat Dresser Relationship Specialty Start Date End Date Sindy Obrien MD [address] [place] [address] PCP - General Family Medicine 03/28/19 Edgard Dasilva, PharmD [address] [place] [address] Pharmacist Pharmacy 12/23/24 documented as of this encounter
--- OUTSIDE RECORDS SUMMARY | 2025-02-09 12:25 | XMS_ITS | Encounter Summary ---
Author Organization [employer] Address [address] [facility] [address] 7t [place] [address] Care Team Providers Care Cage Cashier Name Role Phone Sindy Obrien MD Primary Care Provide r Edgard Dasilva PharmD Unavailable [phone] Reason for Visit * Reason Comments Med Refill Encounter Details Date Type Department Care Team ([facility] st Contact Info) Description 06/02/2023 Refill [facility] MEDICINE 230 [place], [place] [phone] Sindy Obrien MD 230 [place] [address] Vitamin D deficiency, unspecified Social History Tobacco [...] Description 02/09/2025 1:45 PM EDT Office Visit [facility] MEDICINE [address] [place] [address] Sindy Obrien MD [address] [place] [address] Arrived 02/23/2025 1:00 PM EDT Clinical Support [address] [address] 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 RN 03/02/2025 10:00 AM EDT Medication Management [address] [address] Edgard Dasilva PharmD [address] [place] [address] documented as of this encounter Visit Diagnoses Diagnosis Vitamin D deficiency, unspecified documented in this encounter Additional Health Concerns Assessment Noted Time PHQ-9 Depression Total Score: 0 10/24/19 23 3:05 PM EDT documented as of this encounter Care Teams Cage Cashier Relationship Specialty Start Date End Date Sindy Obrien MD [address] [place] [address] PCP - General Family Medicine 03/28/19 Edgard Dasilva, PharmD [facility] [address] [place] [address] Pharmacist Pharmacy 12/23/24 documented as of this encounter
--- OUTSIDE RECORDS SUMMARY | 2025-02-09 12:25 | XMS_ITS | Clinical Summary ---
Author Organization [employer] Address [address] [facility] 7t [place] [address] Care Team Providers Care Licensed Nursing Assistant Name Role Phone Sindy Obrien MD Primary Care Provide r Edgard Dasilva PharmD Unavailable [phone] Allergies No known active allergies Medications ferrous [...] hyperglycemia, with long-term current use of insulin ([facility]) Take 1 tablet (10 mg) by mouth [...] hyperglycemia, with long-term current use of insulin ([facility]) Use to test blood sugar three times daily 100 each 025 2025 Active Lancets miscIndications :Type 2 diabetes mellitus with hyperglycemia, with long-term current use of insulin ([facility]) Use to test blood sugar three times daily 100 each 11 Active insulin degludec (Tresiba FlexTouch) 200 UNIT/ML injectionIndica tions:Type 2 diabetes mellitus with hyperglycemia, with long-term current use of insulin ([facility]) Inject 60 units subcutaneously once daily 9 mL 5 Active fluticasone (Flonase) 50 MCG/ACT nasal spray Administer 1 spray into each nostril Once per day. 16 g Active sodium chloride ([place] Nasal [place]) 0.65 % nasal spray Administer 1 spray [...] hyperglycemia, with long-term current use of insulin ([facility]) Inject 4 units subcutaneously before breakfast and 20 units before dinner. 15 mL 5 Active insulin pen needle (BD Pen Needle Candie U/F) 32G x 4 mm miscIndications :Type 2 diabetes mellitus with hyperglycemia, without long-term current use of insulin ([facility]) Use with insulin three times daily as directed 100 each Active glucose 4 g chewable tabletIndicatio ns:Type 2 diabetes mellitus with hyperglycemia, with long-term current use of insulin ([facility]) Chew 4 tablets (16 g) if needed [...] start him on oxycodone 5mg Q 8hrs DOCTOR OF PODIATRY will be initiated Plan is that after [...] pt in case needs to return to [facility] Type 2 diabetes mellitus wit h hyperglycemia, [...] stomach 05/14/2022 Overview (06/12/2022): Patient seen by [facility] on 05/29/22: 10/2021 EGD showed normal [...] spoke with [facility], and pt. will bring Medbox in [...] has MEDbox and has been ready to pepper picker x last week ---advised pt to [...] spoke with [facility], and pt. will bring Medbox in [...] Encounters Date Type Department Care Team Description 02/09/2025 Travel 02/08/2025 Telephone [facility] [place] [address] Sindy Obrien MD Chart Prep 02/02/2025 Orders Only [facility] Rad[facility] [place] [address] Sindy Obrien MD 01/26/2025 Telephone [facility] [address] [facility] [place] [address] Sindy Obrien MD PCP OUT 01/20/2025 Telephone [facility] Rad[facility] [place] [address] Edgard Dasilva, PharmD 01/19/2025 1:30 PM EDT Clinical Support [facility] Rad[facility] [place] [address] 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 RN Long-term current use of opiate analgesic (Primary Dx) 01/19/2025 Refill [facility] Rad[facility] [place] [address] 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 RN Chronic right shoulder pain 01/19/2025 Travel 01/13/2025 Telephone [facility] Rad[facility] [place] [address] Edgard Dasilva, PharmD 01/06/2025 Telephone [facility] [place] [address] Edgard Dasilva, PharmD 01/04/2025 Orders Only GENERIC EXTERNAL DATA DEPARTMENT Provider, Generic External Data 01/03/2025 Refill [facility] Rad[facility] [place] [address] Sindy Obrien MD Chronic right shoulder pain 12/30/2024 Telephone [facility] [place] [address] Edgard Dasilva, PharmD 12/23/2024 Refill [facility] [address] [place] [address] Sindy Obrien MD HTN (hypertension), benign 12/22/2024 Travel 12/20/[address] [address] 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, MANSI RE Oxycodone counts, UTOX issues 12/19/2024 2:00 PM EDT Clinical Support [facility] [place] [address] 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, RN Long-term current use of opiate analgesic (Primary Dx) 12/19/[address] [address] 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, RN UTOX Neg OXY, Pos MTD; BPI Scoring 12/19/2024 Travel 12/15/2024 Orders Only [facility] External Provider, [facility] 12/06/[address] [address] Sindy Obrien MD Chronic right shoulder pain 11/30/[address] [address] Sindy Obrien MD Chronic right shoulder pain 11/29/[address] [address] Sindy Obrien MD Primary hypertension 11/22/2024 1:30 PM EDT Clinical Support [address] [address] 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, RN Long-term current use of opiate analgesic (Primary Dx) 11/22/[address] [address] 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, RN Oxycodone count discrepany; Recommend DOCTOR OF PODIATRY Tier 1 11/22/2024 Travel 11/22/[address] [address] Sarah Ratliff, MANSI Paperwork/Forms 11/10/2024 Orders Only GENERIC EXTERNAL DATA DEPARTMENT Provider, Generic External Data from Last 3 Months Immunizations Immunization Administration [...] Office Visit [facility] [address] [place] [address] Sindy Obrien MD [address] [place] [address] Arrived 02/23/2025 1:00 PM EDT Clinical Support [facility] [address] [place] [address] 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 RN 03/02/2025 10:00 AM EDT Medication Management [facility] [address] [place] [address] Edgard Dasilva, PharmD [address] [place] [address] Health Maintenance Due Date Last Done Comments CT Colonography 1950 FIT DNA/Cologuard 1950 FIT 1950 Sigmoidoscopy 1950 Diabetes: Foot Exam 1960 Zoster Vaccines (1 of 2) 2000 RSV Patients and Patients Aged 60 years or older (1 - Risk 60-74 years 1-dose series) 2010 Pneumococcal Vaccine: 50+ Years (2 of 2 - PPSV23) 11/19/2017 09/24/2017 FOBT 06/28/2020 06/28/2019 Diabetes: Hemoglobin A1C 02/02/2025 025, 07/19/2024, 06/06/2024, Additional history exists COVID-19 Vaccine ( season) 2025 05/28/2021, 10/25/2020, 09/27/2020 Influenza Vaccine (#1) 2025 Alcohol/Substance Use Screening [...] hyperglycemia, with long-term current use of insulin ([facility]) POCT GLYCATED HEMOGLOBIN, TOTAL Routine 11/02/2024 10:10 [...] - 01/19/2025 1:18 PM EDT UTOX cup Lot#[id number] Exp. 03/14/26 Internal Pass Control Sindy Carlson MD POINT OF CARE TEST EN TER/EDIT ORDERABLES Final Result * Protein Creatinine Ratio, Urine (01/04/2025 9:50 AM EDT) Creatinine, Urine 60.86 mg/dL [facility] Protein, Total, Random Urine <7 <12 mg/dL [facility] Protein/Creatin ine Ratio, Ur TNP <0.2 [facility] Comment:Unable to calculate urine protein creatinine ratio due tolow creatinine or protein result. 01/04/2025 9:50 AM EDT 01/04/2025 12:58 PM EDT Generic External Data Provider LAB URINE ORDERAB LES Final Result Performing Organization Address [facility] de Phone Number [facility] [address] [place] [phone] * Creatinine, Serum (01/04/2025 9:50 AM EDT) Creatinine, Serum 1.21 0.5 - 1.4 mg/dL [facility] Estimated Glomerular Filt Rate 59 [facility] Comment:Chronic Kidney Disea se: Estimated GFR < 60 mL/min/1.28o2Ydwgba Kidney Disease: Estimated GFR < 15 mL/min/1.73m2 01/04/2025 9:50 AM EDT 01/04/2025 12:58 PM EDT us Generic External Data Provider LAB BLOOD ORDERAB LES Final Result Performing Organization Address [facility] de Phone Number [facility] [address] [place] [phone] * (ABNORMAL) BUN (Blood Urea Nitrogen) (01/04/2025 9:50 AM EDT) Urea Nitrogen (BUN) 17(H) 9 - 16 mg/dL [facility] 01/04/2025 9:50 AM EDT 01/04/2025 12:58 PM EDT Generic External Data Provider LAB BLOOD ORDERAB LES Final Result Performing Organization Address [facility] de Phone Number [facility] [address] [place] [phone] * Calcium (01/04/2025 9:50 AM EDT) Calcium 8.8 8.4 - 10.2 mg/dL [facility] 01/04/2025 9:50 AM EDT 01/04/2025 12:58 PM EDT us Generic External Data Provider LAB BLOOD ORDERAB LES Final Result Performing Organization Address [facility] Co de Phone Number [facility] [address] [place] [phone] * (ABNORMAL) Electrolyte Panel (01/04/2025 9:50 AM EDT) Pathologist [facility] Sodium 140 135 - 145 mmol/L [facility] Potassium 4.4 3.3 - 5.1 mmol/L [facility] Chloride 106 96 - 108 mmol/L [facility] Carbon Dioxide 27 22 - 29 mmol/L [facility] Anion Gap 11(L) 12 - 20 [facility] 01/04/2025 9:50 AM EDT 01/04/2025 12:58 PM EDT us Generic External Data Provider LAB BLOOD ORDERAB LES Final Result Performing Organization Address [facility] Phone Number [facility] [address] [place] [phone] * Oxycodone Screen, Urine (12/19/2024 2:00 PM EDT) Pathologist [facility] Oxycodone Urine Screen Not Detected Not Detect ng/mL [facility] Comment:Oxycodone cut-off is 100 ng/mL.Positive results are unconfirmed and should not be used fornon-medical purposes. Urine 12/19/2024 2:00 PM EDT 12/19/2024 5:51 PM EDT us Sindy Carlson MD LAB URINE ORDERABLES Final Result Performing Organization Address [facility] Co de Phone Number [facility] [address] [place] [phone] * Drug Monitoring, Methadone Metabolite, Screen, Urine (12/19/2024 2:00 PM EDT) Methadone Screen, Urine Not Detected Not Detect ng/mL [facility] Comment:Methadone cut-off is 300 ng/mL.Positive results are unconfirmed and should not be used fornon-medical purposes. Urine (Urine, Random) 12/19/2024 2:00 PM EDT 12/19/2024 5:50 PM EDT us Sindy Carlson MD LAB URINE ORDERABLES Final Result [facility] [address] [place] [phone] * US Abdomen Complete (12/15/2024 10:17 AM EDT) Anatomical Region Laterality Modality Abdomen Ultrasound 12/15/2024 10:1 7 AM EDT Narrative 12/15/2024 10:19 AM EDT [address] [address] Ultrasound Report Signed Patient: Frantz Fink MR#: [id number] : 1950 Acct:[id number] Age/Sex: 74 / M ADM Date: 12/15/24 Loc: HO.US Attending Dr: Christa Ferrera MD Ordering Physician: Christa Ferrera MD Date of Service: 12/15/24 Procedure(s): US abdomen complete Accession Number(s): [id number] cc: Sindy Obrien MD; Christa Ferrera MD CLINICAL HISTORY: Liver lesion seen on CT scan US abdomen complete Comparison: US - US RENAL BI - 10/18/24 13:[address]/NE/SR - CT ABDOMEN PELVIS W IV CON [...] 12/15/24 1018 DD/ 1017 TD/TT: 12/15/24 1017 Mail Clerk Bills: Procedure Note Donotuseinterpreter, Image - 12/15/2024 [place] [address] Ultrasound Report Signed Patient: Tyson Fink#: [id number] : 1Acct:[id number] Age/Sex: 74 / MADM Date: 12/15/24 Loc: HO.US Attending Dr: Christa Ferrera MD Ordering Physician: Christa Ferrera MD Date of Service: 12/15/24 Procedure(s): US abdomen complete Accession Number(s): [id number] cc: Sindy Obrien MD; Christa Ferrera MD CLINICAL HISTORY: Liver lesion seen on CT scan US abdomen complete Comparison: US - US RENAL BI - 10/18/24 13:[address]/NE/SR - CT ABDOMEN PELVIS W IV CON [...] 12/15/24 1018 DD/ 1017 TD/TT: 12/15/24 1017 Mail Clerk Bills: us [facility] External Provider IMG US PROCEDURES Edited Result - Final * XR Chest 2 Views (11/10/2024 12:10 PM EDT) Anatomical Region Laterality Modality Chest Radiographic Rosa ging 11/10/2024 12:1 0 PM EDT Narrative 11/10/2024 1:43 PM EDT [address] [address] XRay Report Signed Patient: Frantz Fink MR#: [id number] : 1950 Acct:[id number] Age/Sex: 74 / M ADM Date: 11/10/24 Loc: HO.ED Attending Dr: Ordering Physician: Jaida Hammond Date of Service: 11/10/24 Procedure(s): XR chest 2V Accession Number(s): [id number] cc: Sindy Obrien MD; Jaida Hammond EXAMINATION: [...] 11/10/24 1340 DD/ 1210 TD/TT: 11/10/24 1212 Mail Clerk Bills: Procedure Note Donotuseinterpreter, Image - 11/10/2024 [place] [address] XRay Report Signed Patient: Frantz FinkMR#: [id number] : 1Acct:[id number] Age/Sex: 74 / MADM Date: 11/10/24 Loc: HO.ED Attending Dr: Ordering Physician: Jadia Hammond Date of Service: 11/10/24 Procedure(s): XR chest 2V Accession Number(s): [id number] cc: Sindy Obrien MD; Jaida Hammond EXAMINATION: [...] 11/10/24 1340 DD/ 1210 TD/TT: 11/10/24 1212 Mail Clerk Bills: [facility] External Provider IMG XR PROCEDURES Edited Result - Final * Strep A Nucleic Acid (11/10/2024 11:33 AM EDT) IDNOW SERIAL# [id number] [facility] Strep A Nucleic Acid Negative Negative [facility] Comment:All test results mus t [...] LAB MICROBIOLOGY - GENERAL ORDERABLES Final Result [facility] [address] [place] [phone] * SARS-CoV-2 RNA, Influenza A/B, and RSV RNA, Ql NAAT (11/10/2024 11:33 AM EDT) Influenza A PCR NEGATIVE Negative [facility] Influenza B PCR NEGATIVE Negative [facility] Resp Syncy Virus RNA Qual PCR NEGATIVE Negative [facility] SARS COV2 PCR NEGATIVE Negative [facility] Comment:All test results mus t be [...] use by authorized laboratories.Testing performed on the vSocial GeneXpert utilizingreal-time RT-PCR.All SARS CoV2 and positive influenza A/B results arereported to [facility]. 11/10/2024 11:3 3 AM EDT 11/10/2024 11:40 AM EDT us Generic External Data Provider LAB MICROBIOLOGY - GENERAL ORDERABLES Final Result [facility] [address] [place] [phone] * (ABNORMAL) Lipid Panel, Standard (11/02/2024 11:56 AM EDT) Triglycerides 134 <150 mg/dL [facility] Comment:Desirable Triglyceri de: less than 150 mg/dLBorderline High Triglyceride 150-199 mg/dLHigh Triglyceride: 200-499 mg/dLVery High Triglyceride: greater than or equal to 5OO mg/dL Cholesterol 121 <200 mg/dL [facility] Comment:Desirable Cholestero l: less than 200 mg/dLBorderline High Cholesterol: 200-239 mg/dLHigh Cholesterol: greater than 239 mg/dL LDL Cholesterol Calculated 66 <100 mg/dL [facility] Comment:Desirable LDL: less than 100 mg/dLNear Optimal/Above Optimal LDL: 110- 129 mg/dLBorderline High LDL: 130-159 mg/dLHigh LDL: 160-189 mg/dLVery High LDL: greater than or equal to 190 mg/dL HDL Cholesterol 29(L) >40 mg/dL [facility] Comment:Desirable HDL: great er than 40 mg/dL Note: This HDL assay may give artificially low results in patients with liver disease. Blood Venous blood specimen / Unknown 11/02/2024 11:56 AM EDT 11/02/2024 1:15 PM EDT us Sindy Carlson MD LAB BLOOD ORDERABLES Final Result [facility] [address] [place] [phone] * (ABNORMAL) POCT HGB A1C (11/02/2024 10:10 AM EDT) Hemoglobin A1C 9.3(A) 4.0 - 6.0 % Blood 11/02/2024 10:1 0 AM EDT Sindy Carlson MD POINT OF CARE TEST EN TER/EDIT ORDERABLES Final Result * Hepatitis Panel, General (06/10/2024 11:29 AM EST) Hepatitis A IgM Nonreactive Nonreactive [facility] Comment:IgM antibodies to MCCARTHY V not detected; does not exclude earlyacute or recovered HAV infection. ~Hepatitis B Surface Antibody NONREACTIVE Nonreactive [facility] Comment:Nonreactive: < 8.00 mIU/mL Hepatitis B Core Antibody Nonreactive Nonreactive [facility] Hepatitis C Antibody Nonreactive Nonreactive [facility] Comment:Antibodies to HCV no t detected; does not exclude early acuteHCV infection. Hepatitis B Surface Ag Negative Negative [facility] Blood Venous blood specimen / Unknown 06/10/2024 11:29 AM EST 06/10/2024 1:07 PM EST us Sindy Carlson MD LAB BLOOD ORDERABLES Final Result [facility] [address] [place] [address] [phone] * Colonoscopy (01/23/2023) us Historical Provider MD HEALTH MAINTENANCE Final Result * (ABNORMAL) OCCULT BLOOD STOOL X3 (06/28/2019 12:00 AM EST) OCCULT BLOOD STOOL-1 NEG NEG [facility] OCCULT BLOOD STOOL-1 DATE 06/25/19 [facility] OCCULT BLOOD STOOL-2 POS(AA) NEG [facility] OCCULT BLOOD STOOL-2 DATE 06/26/19 [facility] OCCULT BLOOD STOOL-3 POS(AA) NEG [facility] OCCULT BLOOD STOOL-3 DATE 06/28/19 [facility] 06/28/2019 us Sindy Carlson MD HISTORICAL/NON ORDERA BLE LABS Final Result [facility] [address] from Last 3 Months or Most Recently Relevant to Health Maintenance Insurance [facility] [employer] (O D-SNP) KATHERINE EDWARDS [id number] Care Teams Licensed Nursing Assistant Relationship Specialty Start Date End Date Sindy Obrien MD [address] [place] [address] PCP - General Family Medicine 03/28/19 Edgard Dasilva, PharmD [address] [place] [address] Pharmacist Pharmacy 12/23/24
--- OUTSIDE RECORDS SUMMARY | 2025-02-09 12:25 | XMS_ITS | Encounter Summary ---
Author Organization [employer] Address [address] [facility] [address] [place] [address] Care Team Providers Care Surfboard Designer Name Role Phone Sindy Obrien MD Primary Care Provide r Edgard Dasilva PharmD Unavailable [phone] Reason for Visit * Reason Comments Med Refill Encounter Details Date Type Department Care Team (Late st Contact Info) Description 12/15/2023 Refill [facility] [address] [place], [place] [phone] Sindy Obrien MD [address] [place] [address] Chronic right shoulder pain Social History Tobacco [...] Description 02/09/2025 1:45 PM EDT Office Visit [facility] [address] [place] [phone] Sindy Obrien MD [address] [place] [address] Arrived 02/23/2025 1:00 PM EDT Clinical Support [address] [address] 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 RN 03/02/2025 10:00 AM EDT Medication Management [address] [address] Edgard Dasilva PharmD [address] [place] [phone] documented as of this encounter Goals Goal [...] documented as of this encounter Care Teams Surfboard Designer Relationship Specialty Start Date End Date Sindy Obrien MD [address] [place] [phone] PCP - General Family Medicine 03/28/19 Edgard Dasilva, PharmD [address] [place] [address] [place] [address] Pharmacist Pharmacy 12/23/24 documented as of this encounter
--- OUTSIDE RECORDS SUMMARY | 2025-02-09 12:25 | XMS_ITS | Encounter Summary ---
Author Organization [employer] Address [address] [facility] 7t [place] [address] Care Team Providers Care Engineering Scientist Name Role Phone Sindy Obrien MD Primary Care Provide r Edgard Dasilva PharmD Unavailable [phone] Reason for Visit * Reason Onset Date Comments Chart Prep 02/08/2025 Encounter Details Date Type Department Care Team ([facility] st Contact Info) Description 02/08/2025 Telephone [facility] [address] [place] [address] Sindy Obrien MD [address] [place], [place] [phone] Chart Prep Social History Tobacco Use Types Packs/Day Years [...] encounter Miscellaneous Notes * Telephone Encounter - [place] - 02/08/2025 3:40 PM EDT Chart Prep Labs: done Images: done Referrals: complete Vaccines due: Covid, Flu, RSV, and Zoster Screenings: foot exam Overdue care gaps: A1c, Glucose, PHQ-9, and LORENZO-7 documented in this encounter Plan of Treatment Upcoming Encounters Date Type Department Care Team (Late st Contact Info) Description 02/09/2025 1:45 PM EDT Office Visit [facility] MEDICINE [address] [place] [phone] Sindy Obrien MD [address] [place] [phone] Arrived 02/23/2025 1:00 PM EDT Clinical Support [address] [address] 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 RN 03/02/2025 10:00 AM EDT Medication Management [address] [address] Edgard Dasilva, PharmD [address] [place] [address] documented as of this encounter Goals Goal [...] documented as of this encounter Care Teams Engineering Scientist Relationship Specialty Start Date End Date Sindy Obrien MD [address] [place] [address] PCP - General Family Medicine 03/28/19 Edgard Dasilva, PharmD [address] [place] [phone] Pharmacist Pharmacy 12/23/24 documented as of this encounter
--- OUTSIDE RECORDS SUMMARY | 2025-02-09 12:25 | XMS_ITS | Encounter Summary ---
Author Organization [employer] Address [address] [facility] 7t [place] [address] Care Team Providers Care Adobe Layer Helper Name Role Phone Sindy Obrien MD Primary Care Provide r Edgard Dasilva PharmD Unavailable [phone] Encounter Details Date Type Department Care Team (Latest Contact Info) Description 02/09/2025 Travel Social History Tobacco Use Types Packs/Day [...] Description 02/09/2025 1:45 PM EDT Office Visit [facility] [address] [place] [phone] Sindy Obrien MD [address] [place] [phone] Arrived 02/23/2025 1:00 PM EDT Clinical Support [address] [address] 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 RN 03/02/2025 10:00 AM EDT Medication Management [address] [address] Edgard Dasilva, AtiyaD [address] [place] [address] documented as of this encounter Goals Goal [...] documented as of this encounter Care Teams Adobe Layer Helper Relationship Specialty Start Date End Date Sindy Obrien MD [address] [place] [address] PCP - General Family Medicine 03/28/19 Edgard Dasilva, PharmD [address] [place] [phone] Pharmacist Pharmacy 12/23/24 documented as of this encounter
--- OUTSIDE RECORDS SUMMARY | 2025-02-09 12:25 | XMS_ITS | Encounter Summary ---
Author Organization [employer] Address [address] [facility] [address] [place] [address] Care Team Providers Care Maintenance Advisor Name Role Phone Sindy Obrien MD Primary Care Provide r Edgard Dasilva PharmD Unavailable [phone] Reason for Visit * Reason Comments Med Refill Encounter Details Date Type Department Care Team ([facility] Contact Info) Description 10/29/2022 Refill [facility] [address] [place] [address] [facility] [address] [place] [address] Depressive disorder Social History Tobacco Use Types [...] Upcoming Encounters Date Type Department Care Team ([facility] Contact Info) Description 02/09/2025 1:45 PM EDT Office Visit [facility] [address] [place] [phone] Sindy Obrien MD [address] [place] [phone] Arrived 02/23/2025 1:00 PM EDT Clinical Support [facility] [address] [place] [phone] 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, MANSI 03/02/2025 10:00 AM EDT Medication Management [facility] [address] [place] [phone] Edgard Dasilva, PharmD [address] [place] [phone] documented as of this encounter Visit Diagnoses Diagnosis Depressive disorder Depressive disorder, not elsewhere classified documented in this encounter Additional Health Concerns Assessment Noted Time PHQ-9 Depression Total Score: 0 10/24/19 23 3:05 PM EDT documented as of this encounter Care Teams Maintenance Advisor Relationship Specialty Start Date End Date Sindy Obrien MD [address] [place] [address] [phone] PCP - General Family Medicine 03/28/19 Edgard Dasilva, PharmD [address] [place] [address] [phone] Pharmacist Pharmacy 12/23/24 documented as of this encounter
== END 2025-02-09 11:51 | disposition home or self-care (01) ==
PROVIDERS: PCP Internal Medicine; Visit Provider Internal Medicine Gastroenterology
DX: C16.9 Malignant neoplasm of stomach, unspecified (principal); K29.70 Gastritis, unspecified, without bleeding; Z86.0100 Personal history of colon polyps, unspecified
CPT/HCPCS: 99213

== ENCOUNTER → 2025-02-09 10:49 | Outpatient (BNVA) | payer OTHER, SELFPAY | PROVIDERS: PCP Internal Medicine; Visit Provider Internal Medicine Gastroenterology | DX: C16.9 Malignant neoplasm of stomach, unspecified (principal); K29.70 Gastritis, unspecified, without bleeding; Z86.0100 Personal history of colon polyps, unspecified | CPT/HCPCS: 99212 ==

== ENCOUNTER 2025-02-10 12:01 | Day surgery (SDC) | payer OTHER, SELFPAY ==
--- OUTSIDE RECORDS SUMMARY | 2025-02-07 12:48 | XMS_ITS | Encounter Summary ---
Author Organization [employer] Address [address] [facility] 7t [place] [address] Care Team Providers Care Gis Geographer Name Role Phone Sindy Obrien MD Primary Care Provide r Edgard Dasilva PharmD Unavailable [phone] Reason for Visit * Reason Comments Med Refill Encounter Details Date Type Department Care Team ([facility] Contact Info) Description 10/29/2022 Refill [facility] [address] [place] [address] [facility] [address] [place] [address] Depressive disorder Social History Tobacco Use Types [...] Upcoming Encounters Date Type Department Care Team ([facility] Contact Info) Description 02/09/2025 1:45 PM EDT Office Visit [facility] [address] [place] [phone] Sindy Obrien MD [address] [place] [address] 02/23/2025 1:00 PM EDT Clinical Support [facility] [address] [place] [phone] 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, MANSI 03/02/2025 10:00 AM EDT Medication Management [facility] [address] [place] [phone] Edgard Dasilva, PharmD [address] [place] [address] documented as of this encounter Visit Diagnoses Diagnosis Depressive disorder Depressive disorder, not elsewhere classified documented in this encounter Additional Health Concerns Assessment Noted Time PHQ-9 Depression Total Score: 0 10/24/19 23 3:05 PM EDT documented as of this encounter Care Teams Gis Geographer Relationship Specialty Start Date End Date Sindy Obrien MD [address] [place] [phone] PCP - General Family Medicine 03/28/19 Edgard Dasilva, PharmD [address] [place] [phone] Pharmacist Pharmacy 12/23/24 documented as of this encounter
--- OUTSIDE RECORDS SUMMARY | 2025-02-07 12:48 | XMS_ITS | Clinical Summary ---
Author Organization [facility] Facility Address [address] [place] [address], [place] [address] Care Team Providers Care Motion Picture Narrator Name Role Phone Sindy Obrien MD Primary [...] patient's age to complete this topic [place] [address] ([id number]) [facility] ([id number]) Care Teams Motion Picture Narrator Relationship Specialty Start Date End Date Sindy Obrien MD [address] [place] [phone] PCP - General Internal Medicine 01/01/22
--- OUTSIDE RECORDS SUMMARY | 2025-02-07 12:48 | XMS_ITS | Encounter Summary ---
Author Organization [employer] Address [address] [facility] [address] 7t [place] [address] Care Team Providers Care Coffee Sampler Name Role Phone Sindy Obrien MD Primary Care Provide r Edgard Dasilva PharmD Unavailable [phone] Encounter Details Date Type Department Care Team ([facility] st Contact Info) Description 02/02/2025 Orders Only [facility] MEDICINE [address] [place] [address] Sindy Obrien MD [address] [place], [place] [phone] Social History Tobacco Use Types Packs/Day Years [...] Care Team (Late st Contact Info) Description 02/09/2025 1:45 PM EDT Office Visit [facility] [address] [place] [address] Sindy Obrien MD [address] [place] [address] 02/23/2025 1:00 PM EDT Clinical Support [facility] [address] [place] [address] 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 RN 03/02/2025 10:00 AM EDT Medication Management [facility] [address] [place] [address] Edgard Dasilva PharmD [address] [place] [address] documented as of this encounter Goals Goal Patient Goal Type Associated Problems Recent Progress Patient-Stated? Author Hemoglobin A1c < 8 Result Component 9.3(11/02/2024 10:10 AM EDT) No Caroline Neri PharmD documented as of this encounter Visit Diagnoses Not on filedocumented in this encounter Additional Health Concerns Assessment Noted Time PHQ-9 Depression Total Score: 0 06/06/20 24 1:16 PM EST documented as of this encounter Care Teams Coffee Sampler Relationship Specialty Start Date End Date Sindy Obrien MD 230 [place] [address] PCP - General Family Medicine 03/28/19 Edgard Dasilva, AtiyaD 230 [place] [address] Pharmacist Pharmacy 12/23/24 documented as of this encounter
--- OUTSIDE RECORDS SUMMARY | 2025-02-07 12:48 | XMS_ITS | Encounter Summary ---
Author Organization [employer] Address [address] [facility] [address] 7t [place] [address] Care Team Providers Care Outdoor Education Teacher Name Role Phone Sindy Obrien MD Primary Care Provide r Edgard Dasilva PharmD Unavailable [phone] Reason for Visit * Reason Comments Med Refill Encounter Details Date Type Department Care Team ([facility] st Contact Info) Description 04/26/2023 Refill [facility] MEDICINE [address] [place], [place] [phone] Sindy Obrien MD 230 [place] [address] HTN (hypertension), benign Social History Tobacco Use Types Packs/Day Years Used Date Smoking Tobacco: Former Cigarettes Passive Smoke Exposure: Current Smokeless Tobacco: Never Alcohol Use Standard Drinks/Week Comments Never 0 (1 standard drink = 0.6 oz pur e alcohol) Depression Answer Date Recorded Patient Health Questionnaire-9 Score 0 10/23/2022 Housing Stability Answer Date Recorded What is your housing situation today? I have marjannicolette montelongo 03/31/[address] you [...] Description 02/09/2025 1:45 PM EDT Office Visit [address] [address] Sindy Obrien MD [address] [place] [address] 02/23/2025 1:00 PM EDT Clinical Support [address] [address] 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 RN 03/02/2025 10:00 AM EDT Medication Management [address] [address] Edgard Dasilva PharmD [address] [place] [address] documented as of this encounter Visit Diagnoses Diagnosis HTN (hypertension), benign Essential hypertension, benign documented in this encounter Additional Health Concerns Assessment Noted Time PHQ-9 Depression Total Score: 0 10/24/19 23 3:05 PM EDT documented as of this encounter Care Teams Outdoor Education Teacher Relationship Specialty Start Date End Date Sindy Obrien MD [address] [place] [address] PCP - General Family Medicine 03/28/19 Edgard Dasilva, PharmD [address] [place] [address] Pharmacist Pharmacy 12/23/24 documented as of this encounter
--- OUTSIDE RECORDS SUMMARY | 2025-02-07 12:48 | XMS_ITS | Encounter Summary ---
Author Organization [employer] Address [address] [facility] [address] 7t [place] [address] Care Team Providers Care Windows Mobile Developer Name Role Phone Sindy Obrien MD Primary Care Provide r Edgard Dasilva PharmD Unavailable [phone] Encounter Details Date Type Department Care Team ([facility] st Contact Info) Description 09/03/2023 Orders Only [facility] MEDICINE 230 [place] [address] Sindy Obrien MD [address] [place], [place] [phone] Chronic right shoulder pain (Primary Dx) Social [...] Description 02/09/2025 1:45 PM EDT Office Visit [facility] MEDICINE [address] [place] [address] Sindy Obrien MD [address] [place] [address] 02/23/2025 1:00 PM EDT Clinical Support [address] [address] 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 RN 03/02/2025 10:00 AM EDT Medication Management [address] [address] Edgard Dasilva, PharmD [address] [place] [address] documented as of this encounter Procedures Procedure [...] PM EDT Narrative 09/08/2023 11:17 AM EDT [address] [address] [address] Scan Report Signed Patient: Frantz Fink MR#: [id number] : 1950 Acct:[id number] Age/Sex: 73 / M ADM Date: 09/07/23 Loc: HO.CT Attending Dr: Christa Ferrera MD Ordering Physician: Christa Ferrera MD Date of Service: 09/07/23 Procedure(s): CT chest w IV con Accession Number(s): [id number] cc: Sindy Obrien MD; Christa Ferrera MD [...] technique TOTAL EXAM DLP: 392 mGy-cm FINDINGS: AUTOMOTIVE TIRE WORKER: Enlarged superior mediastinum. Clear lungs. Nonobstructive [...] in OV> 09/08/23 1113 DD/ 1227 TD/TT: Conductor Symphonic Orchestra: Procedure Note Donotuseinterpreter, Image - 09/08/[address] [address] [address] Scan Report Signed Patient: Frantz FinkMR#: [id number] : 1Acct:[id number] Age/Sex: 73 / MADM Date: 09/07/23 Loc: HO.CT Attending Dr: Christa Ferrera MD Ordering Physician: Christa Ferrera MD Date of Service: 09/07/23 Procedure(s): CT chest w IV con Accession Number(s): [id number] cc: Sindy Obrien MD; Christa Ferrera MD [...] technique TOTAL EXAM DLP: 392 mGy-cm FINDINGS: AUTOMOTIVE TIRE WORKER: Enlarged superior mediastinum. Clear lungs. Nonobstructive [...] in OV> 09/08/23 1113 DD/ 1227 TD/TT: Conductor Symphonic Orchestra: us [facility] External Provider IMG CT PROCEDURES Final Result * Stress test with myocardial perfusion (09/04/2023 8:15 AM EDT) 09/04/2023 8:15 AM EDT Narrative [facility] - 09/04/2023 3:44 PM EDT [address] [address] Nuclear Medicine Report Signed Patient: Frantz Fink MR#: [id number] : 1950 Acct:[id number] Age/Sex: 73 / M ADM Date: 09/03/23 Loc: ValeryADOLFO Attending Dr: Amanda SCOTT Ordering Physician: Amanda De La Paz Date of Service: 09/03/23 Procedure(s): NM cardiolite stress test Accession Number(s): [id number] cc: Sindy Obrien MD; Amanda De La [...] in OV> 09/04/23 1540 DD/ 0815 TD/TT: Conductor Symphonic Orchestra: Procedure Note Donotuseinterpreter, Image - 09/04/[address] [address] Nuclear Medicine Report Signed Patient: Frantz FinkMR#: [id number] : 1950cct:[id number] Age/Sex: 73 / MADM Date: 09/03/23 Loc: ALLIE Attending Dr: Amanda SCOTT Ordering Physician: Amanda De La Paz Date of Service: 09/03/23 Procedure(s): NM cardiolite stress test Accession Number(s): [id number] cc: Sindy Obrien MD; Amanda De La [...] in OV> 09/04/23 1540 DD/ 0815 TD/TT: Conductor Symphonic Orchestra: [facility] External Provider CV STRE SS PROCEDURES Edited Result - Final Performing Organization Address City/State/[facility] Co de Phone Number [facility] [address] [place] [address] documented in this encounter Visit Diagnoses Diagnosis Chronic right shoulder pain- Primary Pain in joint, shoulder region documented in this encounter Additional Health Concerns Assessment Noted Time PHQ-9 Depression Total Score: 0 10/24/19 23 3:05 PM EDT documented as of this encounter Care Teams Windows Mobile Developer Relationship Specialty Start Date End Date Sindy Obrien MD [address] [place] [address] PCP - General Family Medicine 03/28/19 Edgard Dasilva PharmD [address] [place] [address] Pharmacist Pharmacy 12/23/24 documented as of this encounter
--- OUTSIDE RECORDS SUMMARY | 2025-02-07 12:48 | XMS_ITS | Encounter Summary ---
Author Organization [employer] Address 75 [facility] 7t [place] [address] Care Team Providers Care Fire Extinguisher Sprinkler Inspector Name Role Phone Sindy Obrien MD Primary Care Provide r Edgard Dasilva PharmD Unavailable [phone] Reason for Visit * Reason Comments Med Refill Encounter Details Date Type Department Care Team ([facility] st Contact Info) Description 11/30/[address] [facility] MEDICINE 230 [place], [place] [phone] Sindy Obrien MD 230 [place] [address] Chronic right shoulder pain Social History Tobacco [...] Description 02/09/2025 1:45 PM EDT Office Visit [facility] MEDICINE [address] [place] [address] Sindy Obrien MD [address] [place] [address] 02/23/2025 1:00 PM EDT Clinical Support [address] [address] 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 RN 03/02/2025 10:00 AM EDT Medication Management [facility] MEDICINE [address] [place] [address] Edgard Dasilva, Nithya [address] [place] [address] documented as of this encounter Goals Goal Patient Goal Type Associated Problems Recent Progress Patient-Stated? Author Hemoglobin A1c < 8 Result Component 9.3(11/02/2024 10:10 AM EDT) No Caroline Neri, AtiyaD documented as of this encounter Visit Diagnoses Diagnosis Chronic right shoulder pain Pain in joint, shoulder region documented in this encounter Additional Health Concerns Assessment Noted Time PHQ-9 Depression Total Score: 0 06/06/20 24 1:16 PM EST documented as of this encounter Care Teams Fire Extinguisher Sprinkler Inspector Relationship Specialty Start Date End Date Sindy Obrien MD 230 [place] [address] PCP - General Family Medicine 03/28/19 Edgard Dasilva, AtiyaD 230 [place] [address] Pharmacist Pharmacy 12/23/24 documented as of this encounter
--- OUTSIDE RECORDS SUMMARY | 2025-02-07 12:48 | XMS_ITS | Encounter Summary ---
Author Organization [employer] Address [address] [facility] 7t [place] [address] Care Team Providers Care Mining Machinery Assembler Name Role Phone Sindy Obrien MD Primary Care Provide r Edgard Dasilva PharmD Unavailable [phone] Encounter Details Date Type Department Care Team (Late st Contact Info) Description 02/13/2023 Orders Only [facility] MEDICINE [address] [place] [address] ProviderOren MD Social History Tobacco Use Types Packs/Day Years [...] Description 02/09/2025 1:45 PM EDT Office Visit [facility] MED[facility]INE [address] [place] [address] Sindy Obrien MD 230 [place] [address] 02/23/2025 1:00 PM EDT Clinical Support [facility] [address] [place] [address] 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 RN 03/02/2025 10:00 AM EDT Medication Management [facility] [address] [place] [address] Edgard Dasilva, PharmD [address] [place] [address] documented as of this encounter Procedures Procedure [...] documented as of this encounter Care Teams Mining Machinery Assembler Relationship Specialty Start Date End Date Sindy Obrien MD [address] [place] [address] PCP - General Family Medicine 03/28/19 Edgard Dasilva, Nithya [address] [place] [address] Pharmacist Pharmacy 12/23/24 documented as of this encounter
--- OUTSIDE RECORDS SUMMARY | 2025-02-07 12:48 | XMS_ITS | Encounter Summary ---
Author Organization [employer] Address [address] [facility] [address] 7t [place] [address] Care Team Providers Care Residential Treatment Specialist Name Role Phone Sindy Obrien MD Primary Care Provide r Edgard Dasilva PharmD Unavailable [phone] Reason for Visit * Reason Comments Med Refill Encounter Details Date Type Department Care Team ([facility] st Contact Info) Description 06/02/2023 Refill [facility] MEDICINE 230 [place], [place] [phone] Sindy Obrien MD 230 [place] [address] Vitamin D deficiency, unspecified Social History Tobacco [...] Description 02/09/2025 1:45 PM EDT Office Visit [address] [address] Sindy Obrien MD [address] [place] [address] 02/23/2025 1:00 PM EDT Clinical Support [address] [address] 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 RN 03/02/2025 10:00 AM EDT Medication Management [address] [address] Edgard Dasilva PharmD [address] [place] [address] documented as of this encounter Visit Diagnoses Diagnosis Vitamin D deficiency, unspecified documented in this encounter Additional Health Concerns Assessment Noted Time PHQ-9 Depression Total Score: 0 10/24/19 23 3:05 PM EDT documented as of this encounter Care Teams Residential Treatment Specialist Relationship Specialty Start Date End Date Sindy Obrien MD [address] [place] [address] PCP - General Family Medicine 03/28/19 Edgard Dasilva, PharmD 230 [place] [address] Pharmacist Pharmacy 12/23/24 documented as of this encounter
--- OUTSIDE RECORDS SUMMARY | 2025-02-07 12:48 | XMS_ITS | Encounter Summary ---
Author Organization [employer] Address [address] [facility] [address] 7t [place] [address] Care Team Providers Care Representative Phlebotomy Services Name Role Phone Sindy Obrien MD Primary Care Provide r Edgard Dasilva PharmD Unavailable [phone] Reason for Visit * Reason Comments Med Refill Encounter Details Date Type Department Care Team (Late st Contact Info) Description 12/15/2023 Refill [facility] MEDICINE 230 [place], [place] [phone] Sindy Obrien MD 230 [place] [address] Chronic right shoulder pain Social History Tobacco [...] Description 02/09/2025 1:45 PM EDT Office Visit [address] [address] Sindy Obrien MD [address] [place] [address] 02/23/2025 1:00 PM EDT Clinical Support [address] [address] 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 RN 03/02/2025 10:00 AM EDT Medication Management [address] [address] Edgard Dasilva PharmD [address] [place] [address] documented as of this encounter Goals Goal [...] documented as of this encounter Care Teams Representative Phlebotomy Services Relationship Specialty Start Date End Date Sindy Obrien MD [address] [place] [address] PCP - General Family Medicine 03/28/19 Edgard Dasilva, PharmD [address] [place] [address] [place] [address] Pharmacist Pharmacy 12/23/24 documented as of this encounter
--- OUTSIDE RECORDS SUMMARY | 2025-02-07 12:48 | XMS_ITS | Encounter Summary ---
Author Organization [employer] Address 75 [facility] 7t [place] [address] Care Team Providers Care Cras Name Role Phone Sindy Obrien MD Primary Care Provide r Edgard Dasilva PharmD Unavailable Encounter Details Date Type Department Care Team (Late st Contact Info) Description 05/20/2022 Orders Only [facility] MEDICINE [address] [place] [address] Bhakti Paredes DO 230 [place] [address] Hypertension, unspecified type (Primary Dx) Social History [...] 1:45 PM EDT Office Visit [facility] MEDICINE [address] [place] [address] Sindy Obrien MD 230 [place] [address] 02/23/2025 1:00 PM EDT Clinical Support [address] [phone] 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 RN 03/02/2025 10:00 AM EDT Medication Management [address] [phone] Edgard Dasilva, Nithya [address] [place] [address] [phone] documented as of this encounter Procedures Procedure Name Priority Date/Time Associated Diagnosis Comments BASIC METABOLIC PANEL Routine 07/08/2022 2:26 PM EST Hypertension, unspecified type documented in this encounter Results * (ABNORMAL) Basic Metabolic Panel (07/08/2022 2:26 PM EST) Glucose 444(H) 65 - 139 mg/dL [facility] Comment: Verified by repeat analysis. Non-fasting reference interval Urea Nitrogen (BUN) 14 7 - 25 mg/dL [facility] Creatinine, Serum 1.23 0.70 - 1.28 mg/dL [facility] eGFR 62 > OR = 60 mL/min/1 .73m2 [facility] Comment: The eGFR is based on the CKD-EPI 2020 equation. To calculate the new eGFR from a previous Creatinine or Cystatin C result, go to https://www.kidney.org/professionals/ kdoqi/gfr%5Fcalculator BUN/Creatinine Ratio NOT APPLICABLE 6 - 22 (calc) [facility] Sodium 132(L) 135 - 146 mmol/L [facility] Potassium 4.3 3.5 - 5.3 mmol/L [facility] Chloride 96(L) 98 - 110 mmol/L [facility] Carbon Dioxide 29 20 - 32 mmol/L [facility] Calcium 9.3 8.6 - 10.3 mg/dL [facility] Blood Venous blood specimen / Unknown 07/08/2022 2:26 PM EST 07/08/2022 2:27 PM EST Narrative [facility] - 07/09/2022 12:11 PM EST FASTING:NO FASTING: NO us Bhakti Reggie DO LAB BLOOD ORDERABLES Final R esult [facility] [address] [facility], [place] [address] [facility] [address] [facility], (N[address]) [place] [address] documented in this encounter Visit Diagnoses Diagnosis Hypertension, unspecified type- Primary documented in this encounter Care Teams Cras Relationship Specialty Start Date End Date Sindy Obrien MD [address] [place] [address] PCP - General Family Medicine 03/28/19 Edgard Dasilva, PharmD 230 [place] [address] Pharmacist Pharmacy 12/23/24 documented as of this encounter
--- OUTSIDE RECORDS SUMMARY | 2025-02-07 12:48 | XMS_ITS | Encounter Summary ---
Author Organization [employer] Address [address] [facility] [address] 7t [place] [address] Care Team Providers Care Mill Labor Supervisor Name Role Phone Sindy Obrien MD Primary Care Provide r Edgard Dasilva PharmD Unavailable [phone] Reason for Visit * Reason Comments Med Refill Encounter Details Date Type Department Care Team (Late st Contact Info) Description 09/03/2023 Refill [facility] MEDICINE 230 [place], [place] [phone] Sindy Obrien MD 230 [place] [address] Chronic right shoulder pain Social History Tobacco [...] 1:45 PM EDT Office Visit [facility] MEDICINE [address] [place] [address] Sindy Obrien MD [address] [place] [address] 02/23/2025 1:00 PM EDT Clinical Support [address] [address] 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 RN 03/02/2025 10:00 AM EDT Medication Management [address] [address] Edgard Dasilva PharmD [address] [place] [address] documented as of this encounter Visit Diagnoses Diagnosis Chronic right shoulder pain Pain in joint, shoulder region documented in this encounter Additional Health Concerns Assessment Noted Time PHQ-9 Depression Total Score: 0 10/24/19 23 3:05 PM EDT documented as of this encounter Care Teams Mill Labor Supervisor Relationship Specialty Start Date End Date Sindy Obrien MD [address] [place] [address] PCP - General Family Medicine 03/28/19 Edgard Dasilva, PharmD 230 [place] [address] Pharmacist Pharmacy 12/23/24 documented as of this encounter
--- OUTSIDE RECORDS SUMMARY | 2025-02-07 12:48 | XMS_ITS | Encounter Summary ---
Author Organization [employer] Address [address] [facility] [address] 7t [place] [address] Care Team Providers Care Roller Shop Supervisor Name Role Phone Sindy Obrien MD Primary Care Provide r Edgard Dasilva PharmD Unavailable [phone] Reason for Visit * Reason Comments Med Refill Encounter Details Date Type Department Care Team (Late st Contact Info) Description 05/20/2024 Refill [facility] [address] [place], [place] [phone] Sindy Obrien MD 230 [place] [address] HTN (hypertension), benign; Type 2 diabetes mellitus with hyperglycemia, with long-term current use of insulin ([facility]) Social History Tobacco Use Types [...] Description 02/09/2025 1:45 PM EDT Office Visit [facility] MEDICINE [address] [place] [address] Sindy Obrien MD [address] [place] [address] 02/23/2025 1:00 PM EDT Clinical Support [address] [address] 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 RN 03/02/2025 10:00 AM EDT Medication Management [address] [address] Edgard Dasilva PharmD [address] [place] [address] documented as of this encounter Goals Goal Patient Goal Type Associated Problems Recent Progress Patient-Stated? Author Hemoglobin A1c < 8 Result Component 9.3(11/02/2024 10:10 AM EDT) No Caroline Neri, Nithya documented as of this encounter Visit Diagnoses Diagnosis HTN (hypertension), benign Essential hypertension, benign Type 2 diabetes mellitus with hyperglycemia, with long-term current use of insulin ([facility]) documented in this encounter Additional Health Concerns Assessment Noted Time PHQ-9 Depression Total Score: 0 10/24/19 23 3:05 PM EDT documented as of this encounter Care Teams Roller Shop Supervisor Relationship Specialty Start Date End Date Sindy Obrien MD 230 [place], [place] [phone] PCP - General Family Medicine 03/28/19 Edgard Dasilva, AtiyaD 230 [place] [address] Pharmacist Pharmacy 12/23/24 documented as of this encounter
--- OUTSIDE RECORDS SUMMARY | 2025-02-07 12:48 | XMS_ITS | Encounter Summary ---
Author Organization [employer] Address [address] [facility] 7t [place] [address] Care Team Providers Care Salesperson Sheet Music Name Role Phone Sindy Obrien MD Primary Care Provide r Edgard Dasilva PharmD Unavailable [phone] Reason for Visit * Reason Onset Date Comments FYI 11/18/2023 Encounter Details Date Type Department Care Team ([facility] st Contact Info) Description 11/18/2023 Telephone [facility] MEDICINE 230 [place] [address] Sindy Obrien MD 230 [place], [place] [phone] FYI Social History Tobacco Use Types Packs/Day [...] - 11/18/2023 10:58 AM EDT Tc from [facility] with Dr Leslie (orthopedics) calling to inform they are going to be prescribing 2 weeks of Oxy 10MG after surgery. documented in this encounter Plan of Treatment Upcoming Encounters Date Type Department Care Team (Late st Contact Info) Description 02/09/2025 1:45 PM EDT Office Visit [facility] MEDICINE [address] [place] [address] Sindy Obrien MD [address] [place] [address] 02/23/2025 1:00 PM EDT Clinical Support [facility] MEDICINE [address] [place] [address] 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 RN 03/02/2025 10:00 AM EDT Medication Management [address] [address] Edgard Dasilva, Nithya [address] [place] [address] documented as of this encounter Goals Goal [...] documented as of this encounter Care Teams Salesperson Sheet Music Relationship Specialty Start Date End Date Sindy Obrien MD 230 [place] [address] PCP - General Family Medicine 03/28/19 Edgard Dasilva, AtiyaD 230 [place] [address] Pharmacist Pharmacy 12/23/24 documented as of this encounter
--- OUTSIDE RECORDS SUMMARY | 2025-02-07 12:49 | XMS_ITS | Clinical Summary ---
Author Organization [employer] Address [address] [facility] [address] [place] [address] Care Team Providers Care Steel Pickler Name Role Phone Sindy Obrien MD Primary Care Provide r Edgard Dasilva PharmD Unavailable Allergies No known active allergies Medications ferrous sulfate 325 (65 Fe) MG tablet Take by mouth every 12 (twelve) hours. Active Alcohol Swabs 70 % pads Use to test blood sugar three times daily Active naloxone (Narcan) 4 mg/0.1 mL nasal sprayIndication s:Chronic right shoulder pain Administer 1 spray (4 mg) into affected nostril(s) if needed for opioid reversal. May repeat every 2-3 minutes if needed, alternating nostrils, until medical assistance becomes available. 2 each 3 024 2024 Active dapagliflozin (Farxiga) 10 MGIndications:T ype 2 diabetes mellitus with hyperglycemia, with long-term current use of insulin ([facility]) Take 1 tablet (10 mg) by mouth Once per day. 30 tablet 11 024 2024 Active amLODIPine (Norvasc) 10 MG tabletIndicatio ns:HTN (hypertension), benign Take 1 tablet (10 mg) by mouth in the morning. 90 tablet 1 025 Active atorvastatin (Lipitor) 20 MG tabletIndicatio [...] with long-term current use of insulin ([facility]) Use to test blood sugar three times daily 100 each 025 2025 Active Lancets miscIndications :Type 2 diabetes mellitus with hyperglycemia, with long-term current use of insulin ([facility]) Use to test blood sugar three times daily 100 each 11 Active insulin degludec (Tresiba FlexTouch) 200 UNIT/ML injectionIndica tions:Type 2 diabetes mellitus with hyperglycemia, with long-term current use of insulin ([facility]) Inject 60 units subcutaneously once daily 9 mL 5 Active fluticasone (Flonase) 50 MCG/ACT nasal spray Administer 1 spray into each nostril Once per day. 16 g Active sodium chloride ([place] Nasal [place]) 0.65 % nasal spray Administer 1 spray into each nostril if needed for congestion. 30 mL 025 2025 Active potassium citrate CR (Urocit-K-10) 10 mEq ER tablet Take 2 tablets by mouth 2 times daily. Active olmesartan (BENIcar) 5 MG tabletIndicatio ns:Primary hypertension TAKE 1 TABLET BY MOUTH EVERY MORNING 90 tablet Active carvedilol (Coreg) 12.5 MG tabletIndicatio ns:HTN (hypertension), benign TAKE 1 TABLET BY MOUTH TWICE DAILY IN THE MORNING AND IN THE EVENING WITH FOOD 60 tablet 3 Active insulin lispro (HumaLOG KWIKPEN) 100 UNIT/ML injectionIndica tions:Type 2 diabetes mellitus with hyperglycemia, with long-term current use of insulin ([facility]) Inject 4 units subcutaneously before breakfast and 20 units before dinner. 15 mL 5 Active insulin pen needle (BD Pen Needle Candie U/F) 32G x 4 mm miscIndications :Type 2 diabetes mellitus with hyperglycemia, without long-term current use of insulin ([facility]) Use with insulin three times daily as directed 100 each Active glucose 4 g chewable tabletIndicatio ns:Type 2 diabetes mellitus with hyperglycemia, with long-term current use of insulin ([facility]) Chew 4 tablets (16 g) if needed for low blood sugar. 30 tablet 025 2025 Active oxyCODONE (Roxicodone) 5 MG immediate release tabletIndicatio ns:Chronic right shoulder pain Take 1 tablet (5 mg) by mouth every 8 (eight) hours if needed for severe pain for up to 28 days. 84 tablet 025 2024 Active oxyCODONE (Roxicodone) 5 MG immediate release tabletIndicatio ns:Chronic right shoulder pain Take 1 tablet (5 mg) by mouth every 8 (eight) hours if needed for severe pain for up to 7 days. 21 tablet 025 2024 Discontinued(R eorder (will not trigger notification to Pharmacy)) Active Problems Problem Noted Date Diagnosed Date Long-term current use of opiate analgesic 2024 Acute non-recurrent maxillary sinusitis 10/12/19 25 Assessment & Plan (10/11/2024 1:52 PM EDT): Rapid viral testing negative, he has significant postnasal drip. Rx Augmentin x 7 days Rest (sleep at least 8 hours a night). Hydrate with plenty of water (avoid caffeine and alcohol). Use saline nose drops to loosen mucus + Flonase nasal Take Acetaminophen (Tylenol )/Ibuprofen as needed to reduce fever, headache, body [...] 72 hours (temperature should be less than 100 F without medication). Kidney stones 09/06/2024 Assessment & [...] right shoulder pain 05/21/2023 Assessment & Plan (11/02/2024 1:56 PM EDT): Plan is as soon as we reach the goal for his A1c to refer him back to orthopedics for possible surgery, meanwhile he may continue with oxycodone as needed for pain as prescribed Assessment & Plan (08/10/2023 4:57 PM EST): I will start him on oxycodone 5mg Q 8hrs CORPORATE RECEPTIONIST will be initiated Plan is that after [...] pt in case needs to return to [facility] Type 2 diabetes mellitus wit h hyperglycemia, with long-term current use of insulin 10/23/2022 Assessment & Plan (11/02/2024 1:55 PM EDT): Diabetes is: not controlled but improved - Lab Results Component Value Date HGBA1C 9.3 (A) 11/02/2024 HGBA1C 11.8 (H) 07/19/2024 HGBA1C 11.9 (A) 06/06/2024 - Lab Results Component Value Date MICROALBUR 54.4 07/27/2020 CREATININE 1.17 07/19/2024 -Changes: Continue with same medication regimen and follow-up with pharmacy CDTM - Diabetic eye exam: Up-to-date - Diabetic foot exam: Pending - Continue lifestyle modifications - Continue current medications - Follow up: 3 months Assessment & Plan (09/06/2024 2:15 PM EDT): [...] stomach 05/14/2022 Overview (06/12/2022): Patient seen by [facility] on 05/29/22: 10/2021 EGD showed normal [...] Coreg 12.5 mg bid. I spoke with [facility], and pt. will bring Medbox in [...] has MEDbox and has been ready to nut picker x last week ---advised pt to [...] Coreg 12.5 mg bid. I spoke with [facility], and pt. will bring Medbox in for change. Continue to keep daily BP and pulse log. RN BP and pulse visit scheduled. 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 Initial [...] consulting health care provider Assessment & Plan (11/11/2023 2:32 PM EDT): [...] Encounters Date Type Department Care Team Description 02/02/2025 Orders Only [facility] [place] [address] Sindy Obrien MD 01/26/2025 Telephone [facility] [place] [address] Sindy Obrien MD PCP OUT 01/20/2025 Telephone [facility] [address] [facility] [place] [address] Edgard aDsilva, PharmD 01/19/2025 1:30 PM EDT Clinical Support [facility] [place] [address] 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 RN Long-term current use of opiate analgesic (Primary Dx) 01/19/2025 Refill [facility] [place] [place] [address] 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 RN Chronic right shoulder pain 01/19/2025 Travel 01/13/2025 Telephone [facility] [place] [address] Edgard Dasilva, PharmD 01/06/2025 Telephone [facility] [place] [place] [address] Edgard Dasilva, PharmD 01/04/2025 Orders Only GENERIC EXTERNAL DATA DEPARTMENT Provider, Generic External Data 01/03/2025 Refill [facility] [place] [place] [address] Sindy Obrien MD Chronic right shoulder pain 12/30/2024 Telephone [facility] [place] [place] [address] Edgard Dasilva, PharmD 12/23/2024 Refill [facility] [place] [place] [address] Sindy Obrien MD HTN (hypertension), benign 12/22/2024 Travel 12/20/2024 Telephone [facility] [place] [place] [address] 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 RN RE Oxycodone counts, UTOX issues 12/19/2024 2:00 PM EDT Clinical Support [address] [address] 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, MANSI Long-term current use of opiate analgesic (Primary Dx) 12/19/[address] [address] 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, MANSI UTOX Neg OXY, Pos MTD; BPI Scoring 12/19/2024 Travel 12/15/2024 Orders Only [facility] External Provider, [facility] 12/06/2024 Refill [facility] [address] [place] [phone] Sindy Obrien MD Chronic right shoulder pain 11/30/[address] [address] Sindy Obrien MD Chronic right shoulder pain 11/29/[address] [address] Sindy Obrien MD Primary hypertension 11/22/2024 1:30 PM EDT Clinical Support [address] [address] 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 RN Long-term current use of opiate analgesic (Primary Dx) 11/22/[address] [address] 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, MANSI Oxycodone count discrepany; Recommend CORPORATE RECEPTIONIST Tier 1 11/22/2024 Travel 11/22/[address] [address] Sarah Ratliff, MANSI Paperwork/Forms 11/10/2024 Orders Only GENERIC EXTERNAL DATA DEPARTMENT Provider, Generic External Data 11/08/2024 Travel 11/08/2024 Refill [facility] [address] [place], [place] [phone] Sindy Obiren MD from Last 3 Months Immunizations Immunization Administration Dates Next Due Moderna Covid-19 Vaccine [...] your housing situation today? I have marjan jayda 11/13/[address] you li [...] Sign Reading Time Taken Comments Blood Pressure 126/60 12/22/2024 1:33 PM EDT Pulse 70 12/22/2024 1:33 PM EDT Temperature 36.9 C (98.4 F) 11/02/2024 10:07 AM EDT Respiratory Rate 14 11/02/2024 10:07 AM EDT Oxygen Saturation 98% 09/06/2024 1:23 PM EDT Inhaled Oxygen Concentration - - Weight 79.5 kg (175 lb 3.2 oz) 11/02/2024 10:07 AM EDT Height 160 cm (5' 3 ) 11/02/2024 10:07 AM EDT Body Mass Index 31.04 11/02/2024 10:07 AM EDT Plan of Treatment Upcoming Encounters Date Type Department Care Team (Late st Contact Info) Description 02/09/2025 1:45 PM EDT Office Visit [facility] [address] [place] [phone] Sindy Obrien MD [address] [place] [address] 02/23/2025 1:00 PM EDT Clinical Support [facility] [address] [place] [phone] 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 RN 03/02/2025 10:00 AM EDT Medication Management [facility] [address] [place] [phone] Edgard Dasilva, PharmD [address] [place] [phone] Health Maintenance Due Date Last Done Comments CT Colonography 1950 FIT DNA/Cologuard 1950 FIT 1950 Sigmoidoscopy 1950 Diabetes: Foot Exam 1960 Zoster Vaccines (1 of 2) 2000 RSV Patients and Patients Aged 60 years or older (1 - Risk 60-74 years 1-dose series) 2010 Pneumococcal Vaccine: 50+ Years (2 of 2 - PPSV23) 11/19/2017 09/24/2017 FOBT 06/28/2020 06/28/2019 COVID-19 Vaccine ( season) 2024 05/28/2021, 10/25/2020, 09/27/2020 Diabetes: Hemoglobin A1C 02/02/2025 025, 07/19/2024, 06/06/2024, Additional history exists Influenza Vaccine (#1) 2025 Alcohol/Substance Use Screening 06/06/2025 06/06/2024 Depression Screening 06/06/2025 06/06/2024, 06/06/20 24 Eye Exam 08/17/2025 08/18/2023, 08/06, 08/18/2023, Additional history exists Tobacco Screening 10/11/2025 10/11/2024 SDOH Screening 10/21/2025 10/21/2024 Lipid Panel 11/02/2025 11/02/2024, 0710/2021, 06/05/2020 Colonoscopy 01/23/2026 01/23/2023, 05/15/2016 Colorectal Cancer Screening [...] patient's age to complete this topic Meningococcal B Vaccine Aged Out No l onger eligible based on patient's age to complete [...] 9.3(11/02/2024 10:10 AM EDT) Caroline Rose, Nithya Procedures Procedure Name Priority Date/Time Associated Diagnosis Comments POCT VELASQUEZ-14 URINE DRUG SCREEN Routine 01/19/2025 1:18 PM EDT Long-term current use of opiate analgesic PROTEIN CREATININE RATIO, URINE Routine 01/04/2025 9:50 AM EDT CALCIUM Routine 01/04/2025 9:50 AM EDT CREATININE, SERUM Routine 01/04/2025 9:5 0 AM EDT UREA NITROGEN (BUN) Routine 01/04/2025 9 :50 AM EDT ELECTROLYTE PANEL Routine 01/04/2025 9:5 0 AM EDT POCT VELASQUEZ-14 URINE DRUG SCREEN Routine 12/19/2024 2:26 PM EDT Long-term current use of opiate analgesic OXYCODONE SCREEN, URINE Routine 12/19/2024 2:00 PM EDT Long-term current use of opiate analgesic METHADONE SCREEN, URINE Routine 12/19/2024 2:00 PM EDT Long-term current use of opiate analgesic US ABDOMEN COMPLETE Routine 12/15/2024 1 0:17 AM EDT POCT VELASQUEZ-14 URINE DRUG SCREEN Routine 11/22/2024 1:41 PM EDT Long-term current use of opiate analgesic XR CHEST 2 VIEWS Routine 11/10/2024 12:1 0 PM EDT SARS COV2/INFLUENZA A/B AND RSV RNA QL NAAT Routine 11/10/2024 11:33 AM EDT STREP A NUCLEIC ACID Routine 11/10/2024 11:33 AM EDT LIPID PANEL, STANDARD Routine 11/02/2024 11:56 AM EDT Type 2 diabetes mellitus with hyperglycemia, with long-term current use of insulin ([facility]) POCT GLYCATED HEMOGLOBIN, TOTAL Routine 11/02/2024 10:10 AM EDT Type 2 diabetes mellitus with hyperglycemia, with long-term current use of insulin (CMS/HCC) HEPATITIS PANEL, GENERAL Routine 06/10/2024 11:29 AM EST Vestibular disorder, unspecified laterality HM COLONOSCOPY Routine 01/23/2023 ZZZ HISTORICAL OCCULT BLOOD STOOL X3 Routine 06/28/2019 12:00 AM EST from Last 3 Months or Most Recently Relevant to Health Maintenance Results * POCT VELASQUEZ-14 Urine Drug Screen (01/19/2025 1:18 PM EDT) Only the most recent of3 resultswithin the time period is included. THC Negative Negative Cocaine Screen, Urine Negative Negative Opiate Screen, Urine Negative Negative Methamphetamine Screen Urine Negative Negative Amphetamine Screen, Urine Negative Negative Benzodiazepines Screen, Urine Negative Negative Barbiturate Screen, Urine Negative Negative Methadone Screen, Urine Negative Negative Buprenophine Screen, Urine Negative Negative TCA, Urine Negative Negative MDMA Urine Negative Negative ng/mL Oxycodone Screen, Urine Positive Negative Phencyclidine (PCP), Urine Negative Negative Propoxyphene, Urine Negative Negative Fentanyl, Urine Negative Negative Urine Urine specimen obtained by clean catch procedure / Unknown 01/19/2025 1:18 PM EDT Leah Woods RN - 01/19/2025 1:18 PM EDT UTOX cup Lot#[id number] Exp. 03/14/26 Internal Pass Control Sindy Carlson MD POINT OF CARE TEST EN TER/EDIT ORDERABLES Final Result * Protein Creatinine Ratio, Urine (01/04/2025 9:50 AM EDT) Creatinine, Urine 60.86 mg/dL [facility] Protein, Total, Random Urine <7 <12 mg/dL [facility] Protein/Creatin ine Ratio, Ur TNP <0.2 [facility] Comment:Unable to calculate urine protein creatinine ratio due tolow creatinine or protein result. 01/04/2025 9:50 AM EDT 01/04/2025 12:58 PM EDT Generic External Data Provider LAB URINE ORDERAB LES Final Result Performing Organization Address [facility] de Phone Number [facility] [address] [place] [phone] * Creatinine, Serum (01/04/2025 9:50 AM EDT) Creatinine, Serum 1.21 0.5 - 1.4 mg/dL [facility] Estimated Glomerular Filt Rate 59 [facility] Comment:Chronic Kidney Disea se: Estimated GFR < 60 mL/min/[id number] Kidney Disease: Estimated GFR < 15 mL/min/1.73m2 01/04/2025 9:50 AM EDT 01/04/2025 12:58 PM EDT Generic External Data Provider LAB BLOOD ORDERAB LES Final Result Performing Organization Address [facility] de Phone Number [facility] [address] [place] [phone] * (ABNORMAL) BUN (Blood Urea Nitrogen) (01/04/2025 9:50 AM EDT) Urea Nitrogen (BUN) 17(H) 9 - 16 mg/dL [facility] 01/04/2025 9:50 AM EDT 01/04/2025 12:58 PM EDT Generic External Data Provider LAB BLOOD ORDERAB LES Final Result Performing Organization Address [facility] de Phone Number [facility] [address] [place] [phone] * Calcium (01/04/2025 9:50 AM EDT) Calcium 8.8 8.4 - 10.2 mg/dL [facility] 01/04/2025 9:50 AM EDT 01/04/2025 12:58 PM EDT us Generic External Data Provider LAB BLOOD ORDERAB LES Final Result Performing Organization Address [facility] Co de Phone Number [facility] [address] [place] [phone] * (ABNORMAL) Electrolyte Panel (01/04/2025 9:50 AM EDT) Pathologist [facility] Sodium 140 135 - 145 mmol/L [facility] Potassium 4.4 3.3 - 5.1 mmol/L [facility] Chloride 106 96 - 108 mmol/L [facility] Carbon Dioxide 27 22 - 29 mmol/L [facility] Anion Gap 11(L) 12 - 20 [facility] 01/04/2025 9:50 AM EDT 01/04/2025 12:58 PM EDT us Generic External Data Provider LAB BLOOD ORDERAB LES Final Result Performing Organization Address [facility] Phone Number [facility] [address] [place] [phone] * Oxycodone Screen, Urine (12/19/2024 2:00 PM EDT) Pathologist [facility] Oxycodone Urine Screen Not Detected Not Detect ng/mL [facility] Comment:Oxycodone cut-off is 100 ng/mL.Positive results are unconfirmed and should not be used fornon-medical purposes. Urine 12/19/2024 2:00 PM EDT 12/19/2024 5:51 PM EDT us Sindy Carlson MD LAB URINE ORDERABLES Final Result Performing Organization Address [facility] Co de Phone Number [facility] [address] [place] [phone] [phone] * Drug Monitoring, Methadone Metabolite, Screen, Urine (12/19/2024 2:00 PM EDT) Methadone Screen, Urine Not Detected Not Detect ng/mL [facility] Comment:Methadone cut-off is 300 ng/mL.Positive results are unconfirmed and should not be used fornon-medical purposes. Urine (Urine, Random) 12/19/2024 2:00 PM EDT 12/19/2024 5:50 PM EDT us Sindy Carlson MD LAB URINE ORDERABLES Final Result [facility] [address] [place] [phone] * US Abdomen Complete (12/15/2024 10:17 AM EDT) Anatomical Region Laterality Modality Abdomen Ultrasound 12/15/2024 10:1 7 AM EDT Narrative 12/15/2024 10:19 AM EDT [address] [address] Ultrasound Report Signed Patient: Frantz Fink MR#: [id number] : 1950 Acct:[id number] Age/Sex: 74 / M ADM Date: 12/15/24 Loc: HO.US Attending Dr: Christa Ferrera MD Ordering Physician: Christa Ferrera MD Date of Service: 12/15/24 Procedure(s): US abdomen complete Accession Number(s): [id number] cc: Sindy Obrien MD; Christa Ferrera MD CLINICAL HISTORY: Liver lesion seen on CT scan US abdomen complete Comparison: US - US RENAL BI - 10/18/24 13:[address]/SD/SR - CT ABDOMEN PELVIS W IV CON - 09/07/23 11:58 EDT Findings: The visualized pancreas is normal. The aorta and inferior vena cava are normal caliber. Hepatic echotexture is coarsened with overall increased hepatic echogenicity. Liver length 17 cm which is mildly enlarged. There is no intrahepatic bile duct dilatation. The common duct is 9 mm in diameter. The gallbladder is normal. There is no sonographic Davis sign. The main portal vein is antegrade. The right kidney is 11.3 cm in length. The left kidney is 12.4 cm in length. numerous bilateral cystic renal lesions some containing thin septations. No discrete mural nodularity is appreciated. These appear relatively unchanged in size compared with the patient's prior CT and ultrasound. Stone versus debris within a lower pole cyst on the left. Punctate right-sided stone seen on the prior CT are not appreciated on the current ultrasound. The spleen is nonenlarged. No ascites. IMPRESSION: 1. Morphologic changes of chronic liver disease. No focal hepatic lesion appreciated by ultrasound. Consider MRI with and without contrast. 2. Unremarkable gallbladder. Common bile duct is dilated but there are no filling defects identified. 3. Numerous bilateral renal cysts that appear stable compared with the patient's Prior renal ultrasound and CT. This document has been electronically signed by: Dana Kinney MD on 12/15/2024 10:17:51 Dictated By: Dana Kinney MD Signed By: <Electronically signed by Dana Kinney MD in OV> 12/15/24 1018 DD/ 1017 TD/TT: 12/15/24 1017 Market Research Worker: Procedure Note Donotuseinterpreter, Image - 12/15/2024 [place] [address] Ultrasound Report Signed Patient: Tyson Fink#: [id number] : 1Acct:[id number] Age/Sex: 74 / MADM Date: 12/15/24 Loc: HO.US Attending Dr: Christa Ferrera MD Ordering Physician: Christa Ferrera MD Date of Service: 12/15/24 Procedure(s): US abdomen complete Accession Number(s): [id number] cc: Sindy Obrien MD; Christa Ferrera MD CLINICAL HISTORY: Liver lesion seen on CT scan US abdomen complete Comparison: US - US RENAL BI - 10/18/24 13:[address]/SD/SR - CT ABDOMEN PELVIS W IV CON - 09/07/23 11:58 EDT Findings: The visualized pancreas is normal. The aorta and inferior vena cava are normal caliber. Hepatic echotexture is coarsened with overall increased hepatic echogenicity. Liver length 17 cm which is mildly enlarged. There is no intrahepatic bile duct dilatation. The common duct is 9 mm in diameter. The gallbladder is normal. There is no sonographic Davis sign. The main portal vein is antegrade. The right kidney is 11.3 cm in length. The left kidney is 12.4 cm in length. numerous bilateral cystic renal lesions some containing thin septations. No discrete mural nodularity is appreciated. These appear relatively unchanged in size compared with the patient's prior CT and ultrasound. Stone versus debris within a lower pole cyst on the left. Punctate right-sided stone seen on the prior CT are not appreciated on the current ultrasound. The spleen is nonenlarged. No ascites. IMPRESSION: 1. Morphologic changes of chronic liver disease. No focal hepatic lesion appreciated by ultrasound. Consider MRI with and without contrast. 2. Unremarkable gallbladder. Common bile duct is dilated but there are no filling defects identified. 3. Numerous bilateral renal cysts that appear stable compared with the patient's Prior renal ultrasound and CT. This document has been electronically signed by: Dana Kinney MD on 12/15/2024 10:17:51 Dictated By: Dana Kinney MD Signed By: <Electronically signed by Dana Kinney MD in OV> 12/15/24 1018 DD/ 1017 TD/TT: 12/15/24 1017 Market Research Worker: us [facility] External Provider IMG US PROCEDURES Edited Result - Final * XR Chest 2 Views (11/10/2024 12:10 PM EDT) Anatomical Region Laterality Modality Chest Radiographic Rosa ging 11/10/2024 12:1 0 PM EDT Narrative 11/10/2024 1:43 PM EDT [address] [address] XRay Report Signed Patient: Frantz Fink MR#: [id number] : 1950 Acct:[id number] Age/Sex: 74 / M ADM Date: 11/10/24 Loc: HO.ED Attending Dr: Ordering Physician: Jaida Hammond Date of Service: 11/10/24 Procedure(s): XR chest 2V Accession Number(s): [id number] cc: Sindy Obrien MD; Jaida Hammond EXAMINATION: XR CHEST CLINICAL INFORMATION: prod cough COMPARISON: CT chest 09/07/2023. TECHNIQUE: 2 views of the chest were obtained. FINDINGS: Right chest port is in place, tip terminating at the cavoatrial junction, in good position. The cardiac, hilar, and mediastinal contours are normal. Aortic mural calcifications. Lungs demonstrate mild linear opacity in the left base, with suggestion of associated mild peribronchial thickening. Lungs otherwise clear. There is no pneumothorax or pleural effusion. There is no focal osseous or soft tissue abnormality. There are spinal degenerative changes present. There are significant degenerative changes in the right shoulder joint. XR/XR chest 2V IMPRESSION: 1. Right chest port in good position. 2. Linear opacities in the left lower lobe, with a suggestion of associated peribronchial thickening. Infectious/inflammatory airways disease is a possibility. Electronically signed by: Oz Grace MD 11/10/2024 01:40 PM EDT Dictated By: Oz Grace MD Signed By: <Electronically signed by Oz Grace MD in OV> 11/10/24 1340 DD/ 1210 TD/TT: 11/10/24 1212 Market Research Worker: Procedure Note Donotuseinterpreter, Image - 11/10/2024 [place] [id number] XRay Report Signed Patient: Frantz FinkMR#: [id number] : 1Acct:[id number] Age/Sex: 74 / MADM Date: 11/10/24 Loc: .ED Attending Dr: Ordering Physician: Jaida Hammond Date of Service: 11/10/24 Procedure(s): XR chest 2V Accession Number(s): [id number] cc: Sindy Obrien MD; Jaida Hammond EXAMINATION: XR CHEST CLINICAL INFORMATION: prod cough COMPARISON: CT chest 09/07/2023. TECHNIQUE: 2 views of the chest were obtained. FINDINGS: Right chest port is in place, tip terminating at the cavoatrial junction, in good position. The cardiac, hilar, and mediastinal contours are normal. Aortic mural calcifications. Lungs demonstrate mild linear opacity in the left base, with suggestion of associated mild peribronchial thickening. Lungs otherwise clear. There is no pneumothorax or pleural effusion. There is no focal osseous or soft tissue abnormality. There are spinal degenerative changes present. There are significant degenerative changes in the right shoulder joint. XR/XR chest 2V IMPRESSION: 1. Right chest port in good position. 2. Linear opacities in the left lower lobe, with a suggestion of associated peribronchial thickening. Infectious/inflammatory airways disease is a possibility. Electronically signed by: Oz Grace MD 11/10/2024 01:40 PM EDT Dictated By: Oz Grace MD Signed By: <Electronically signed by Oz Grace MD in OV> 11/10/24 1340 DD/ 1210 TD/TT: 11/10/24 1212 Market Research Worker: [facility] External Provider IMG XR PROCEDURES Edited Result - Final * Strep A Nucleic Acid (11/10/2024 11:33 AM EDT) IDNOW SERIAL# [id number] [facility] Strep A Nucleic Acid Negative Negative [facility] Comment:All test results mus t be correlated with clinical findings.This test has not been evaluated for monitoring treatment ofinfection.Additional follow-up testing using the culture method isrequired if the result is negative and clinical symptomspersist, or in the event of an acute rheumatic feveroutbreak. 11/10/2024 11:3 3 AM EDT 11/10/2024 11:40 AM EDT Generic External Data Provider LAB MICROBIOLOGY - GENERAL ORDERABLES Final Result [facility] [address] [place] [phone] * SARS-CoV-2 RNA, Influenza A/B, and RSV RNA, Ql NAAT (11/10/2024 11:33 AM EDT) Influenza A PCR NEGATIVE Negative [facility] Influenza B PCR NEGATIVE Negative [facility] Resp Syncy Virus RNA Qual PCR NEGATIVE Negative [facility] SARS COV2 PCR NEGATIVE Negative [facility] Comment:All test results mus t be correlated with clinical findings.Negative results do not preclude SARS-CoV2, influenza Avirus, influenza B virus and/or RSV infectionand should not be used as the sole basis for treatment orother patient management decisions. Negative results must becombined with clinical observations, patient history, andepidemiological information.This test has not been evaluated for monitoring treatment ofinfection.This test has been authorized by the FDA under an EmergencyUse Authorization (EUA) for use by authorized laboratories.Testing performed on the [employer] GeneXpert utilizingreal-time RT-PCR.All SARS CoV2 and positive influenza A/B results arereported to [facility]. 11/10/2024 11:3 3 AM EDT 11/10/2024 11:40 AM EDT us Generic External Data Provider LAB MICROBIOLOGY - GENERAL ORDERABLES Final Result [facility] [address] [place] [phone] * (ABNORMAL) Lipid Panel, Standard (11/02/2024 11:56 AM EDT) Triglycerides 134 <150 mg/dL [facility] Comment:Desirable Triglyceri de: less than 150 mg/dLBorderline High Triglyceride 150-199 mg/dLHigh Triglyceride: 200-499 mg/dLVery High Triglyceride: greater than or equal to 5OO mg/dL Cholesterol 121 <200 mg/dL [facility] Comment:Desirable Cholestero l: less than 200 mg/dLBorderline High Cholesterol: 200-239 mg/dLHigh Cholesterol: greater than 239 mg/dL LDL Cholesterol Calculated 66 <100 mg/dL [facility] Comment:Desirable LDL: less than 100 mg/dLNear Optimal/Above Optimal LDL: 110- 129 mg/dLBorderline High LDL: 130-159 mg/dLHigh LDL: 160-189 mg/dLVery High LDL: greater than or equal to 190 mg/dL HDL Cholesterol 29(L) >40 mg/dL [facility] Comment:Desirable HDL: great er than 40 mg/dL Note: This HDL assay may give artificially low results in patients with liver disease. Blood Venous blood specimen / Unknown 11/02/2024 11:56 AM EDT 11/02/2024 1:15 PM EDT us Sindy Carlson MD LAB BLOOD ORDERABLES Final Result [facility] [address] [place] [phone] * (ABNORMAL) POCT HGB A1C (11/02/2024 10:10 AM EDT) Hemoglobin A1C 9.3(A) 4.0 - 6.0 % Blood 11/02/2024 10:1 0 AM EDT us Sindy Carlson MD POINT OF CARE TEST EN TER/EDIT ORDERABLES Final Result * Hepatitis Panel, General (06/10/2024 11:29 AM EST) Hepatitis A IgM Nonreactive Nonreactive [facility] Comment:IgM antibodies to MCCARTHY V not detected; does not exclude earlyacute or recovered HAV infection. ~Hepatitis B Surface Antibody NONREACTIVE Nonreactive [facility] Comment:Nonreactive: < 8.00 mIU/mL Hepatitis B Core Antibody Nonreactive Nonreactive [facility] Hepatitis C Antibody Nonreactive Nonreactive [facility] Comment:Antibodies to HCV no t detected; does not exclude early acuteHCV infection. Hepatitis B Surface Ag Negative Negative [facility] Blood Venous blood specimen / Unknown 06/10/2024 11:29 AM EST 06/10/2024 1:07 PM EST us Sindy Carlson MD LAB BLOOD ORDERABLES Final Result [facility] [address] [place] [phone] * Colonoscopy (01/23/2023) us Historical Provider MD HEALTH MAINTENANCE Final Result * (ABNORMAL) OCCULT BLOOD STOOL X3 (06/28/2019 12:00 AM EST) OCCULT BLOOD STOOL-1 NEG NEG [facility] OCCULT BLOOD STOOL-1 DATE 06/25/19 [facility] OCCULT BLOOD STOOL-2 POS(AA) NEG [facility] OCCULT BLOOD STOOL-2 DATE 06/26/19 [facility] OCCULT BLOOD STOOL-3 POS(AA) NEG [facility] OCCULT BLOOD STOOL-3 DATE 06/28/19 [facility] 06/28/2019 us Sindy Carlson MD HISTORICAL/NON ORDERA BLE LABS Final Result [facility] [address] from Last 3 Months or Most Recently Relevant to Health Maintenance Insurance FORMER[facility] [employer] OPTIONS (O D-SNP) KATHERINE EDWARDS [id number] Care Teams Steel Pickler Relationship Specialty Start Date End Date Sindy Obrien MD [address] [place] [address] PCP - General Family Medicine 03/28/19 Edgard Dasilva, PharmD [address] [place] [address] Pharmacist Pharmacy 12/23/24
[2025-02-10] MEDS: Lactated Ringers 1,000 ML 100 ML IVCONT (13:36)
[2025-02-10 13:37] VITALS: BP 152/76; PULSE 75; RESP 18; TEMP 36.7; O2SAT 96
[2025-02-10 13:38] LABS: Glucose, Whole Blood 202 mg/dL (60-115)
[2025-02-10 13:45] VITALS: BMI 30.8
--- NOTE | 2025-02-10 13:49 | MHC.SHP ---
Pre-Procedural Eval Section A - 24 Hr Update-Section A only Date of Service: 02/10/25 The patient is an INPATIENT: No Changes since office visit: Yes Patient answered all questions; No Cold of Flu in the past 2 weeks, No New Medical Problems and No Changes in Medication The patient has been examined within 24 hours of the surgical procedure. The History & Physical has been completed within 30 days and I have reviewed it.: Yes Section B - Complete if H&P > 30 days Chief Complaint: Malignant neoplasm of stomach, unspecified Allergies: Allergies Allergy/AdvReac Type Severity Reaction Status Date / Time No Known Allergies (No Known Allergy Verified 02/10/25 13:46 Allergies*) Plan Diagnosis/Plan: Change (proceed with EGD) I have reviewed the history and physical and performed a pertinent physical examination on my patient. No changes have occurred unless specified. Time Spent With Patient Time: Total time managing care of this patient today ____ minutes.
--- NOTE | 2025-02-10 13:50 | HO.ANESPROP2 ---
Documented by User: Jaida Stanley NP 02/08/25 13:36 HPI - Anesthesia Eval Consult details Narrative: 74 yr old female for upper endoscopy Poorly controlled Type 2 DM CKD stage 3a, GFR 45-59 ml/min: creat stable, at baseline H/O gastric CA: s/p chemotherapy No cardiac hx Anesthesia Pre-Procedure Meds Is the patient on any of the following meds?: SGLT2 Inhib PMFSH Active Problems Active Problems: All Active Problems (Updated 01/27/25 @ 13:47 by Christa Ferrera MD) Calcium oxalate calculus (Acute) Hydrocele (Acute) Renal calculi (Acute) Hypertension (Acute) CKD stage 3a, GFR 45-59 ml/min (Acute) Thyroid nodule (Acute) Abnormal nuclear stress test (Acute) Preop cardiovascular exam (Acute) SOB (shortness of breath) (Acute) Rotator cuff arthropathy of right shoulder (Acute) Right shoulder pain (Acute) Iron deficiency anemia (Acute) Gastric adenocarcinoma (Chronic) Diabetes (Acute) Hypercholesterolemia (Acute) Hypertension (Acute) History of colon polyps (Acute) Gastric adenocarcinoma (Acute) Gastritis (Acute) Vitamin B12 deficiency (Acute) Past Medical History Medical History Renal calculi Diabetes History of gastrectomy History of colon polyps Gastrointestinal stromal tumor (GIST) (~2014) Gastric adenocarcinoma Hydrocele Gastritis Vitamin B12 deficiency Hypercholesterolemia Hypertension Depression Family History Family History Father No problems noted. Mother History of cancer Family history of problems with anesthesia: No Surgical History Surgical History H/O lithotripsy Hx of resection of stomach Hx of esophagogastroduodenoscopy Hx of endoscopy History of hernia repair History of back surgery (~2016) History of colonoscopy (~07/22/19) History of esophagogastroduodenoscopy (EGD) (07/22/19) History of Problems with Anesthesia: No Social History Social History Household Members: Spouse Housing: Apartment Are you a primary home health care case manager to a significant other at home: No Do you presently have visiting nurse or other home services: No Alcohol intake: former Patient Tobacco Use Status: Former Tobacco user Tobacco use type: Cigarette Years Smoked: 35 Have you been hit, kicked, punched, or otherwise hurt by someone within the past year? If so, by whom?: No Advance Directives: No Advance Directives Information Provided: Yes Advance Directives Date on File: 06/27/24 service: No Current occupational status: retired [employer] Allergies Allergy/AdvReac Type Severity Reaction Status Date / Time No Known Allergies (No Known Allergy Verified 02/10/25 13:46 Allergies*) Home Medications ?Medication ?Instructions ?Recorded ?Confirmed ?Last Taken ?Type amlodipine 10 mg tablet (Norvasc) 10 mg PO DAILY 03/27/20 02/10/25 06/23/24 History atorvastatin 20 mg tablet 20 mg PO BEDTIME 03/27/20 02/10/25 06/23/24 History calcium polycarbophil 625 mg tablet 1,250 mg PO DAILY 03/27/20 02/10/25 06/23/24 History cyanocobalamin (vitamin B-12) 1,000 mcg PO DAILY 03/27/20 02/10/25 06/23/24 History 1,000 mcg tablet mirtazapine 15 mg tablet 15 mg PO BEDTIME 02/14/21 02/10/25 06/23/24 History carvedilol 12.5 mg tablet 12.5 mg PO BID 05/29/22 02/10/25 06/23/24 History dapagliflozin propanediol 10 mg 10 mg PO DAILY 09/10/23 02/10/25 02/06/25 History tablet (Farxiga) insulin glargine 100 unit/mL (3 36 unit subcut BID 06/26/24 02/10/25 06/23/24 History mL) subcutaneous pen (Lantus Solostar U-100 Insulin) meclizine 25 mg tablet 25 mg PO TID PRN dizziness 06/26/24 02/10/25 06/23/24 History olmesartan 5 mg tablet 5 mg PO DAILY 06/26/24 02/10/25 06/23/24 History oxycodone 5 mg tablet 5 mg PO Q8H PRN severe pain 06/26/24 02/10/25 06/23/24 History Exam Pertinent Lab Results Pertinent Lab Results: Laboratory Tests 01/27/25 13:19 WBC 11.2 H RBC 4.75 Hgb 13.2 L Hct 40.2 L Plt Count 337 Sodium 139 Potassium 4.8 BUN 20 H Creatinine 1.41 H Narrative Narrative: Echo 2023 Conclusions: - The left ventricular systolic function is normal. The calculated ejection fraction is 68% by biplane method. - No obvious valvular pathology seen on this study. Cardiolite stress test 2023 Impression: 1. Myocardial perfusion imaging study shows mild intensity basal and mid inferior wall ischemia 2. Gated LVEF is 70% 3. Transient ischemic dilatation not present Assessment and Plan Final Anesthetic Review Family History of Problems with Anesthesia: No History of Problems with Anesthesia: No Documented by User: Meera Zuñiga DO 02/10/25 14:12 HPI - Anesthesia Eval Anesthesia Pre-Procedure Meds Is the patient on any of the following meds?: SGLT2 Inhib PMFSH Past Medical History Medical History Renal calculi Diabetes History of gastrectomy History of colon polyps Gastrointestinal stromal tumor (GIST) (~2014) Gastric adenocarcinoma Hydrocele Gastritis Vitamin B12 deficiency Hypercholesterolemia Hypertension Depression Family History Family History Father No problems noted. Mother History of cancer Family history of problems with anesthesia: No Surgical History Surgical History H/O lithotripsy Hx of resection of stomach Hx of esophagogastroduodenoscopy Hx of endoscopy History of hernia repair History of back surgery (~2016) History of colonoscopy (~07/22/19) History of esophagogastroduodenoscopy (EGD) (07/22/19) History of Problems with Anesthesia: No Social History Social History Household Members: Spouse Housing: Apartment Are you a primary home health care case manager to a significant other at home: No Do you presently have visiting nurse or other home services: No Alcohol intake: former Patient Tobacco Use Status: Former Tobacco user Tobacco use type: Cigarette Years Smoked: 35 Have you been hit, kicked, punched, or otherwise hurt by someone within the past year? If so, by whom?: No Advance Directives: No Advance Directives Information Provided: Yes Advance Directives Date on File: 06/27/24 service: No Current occupational status: retired [employer] Allergies Allergy/AdvReac Type Severity Reaction Status Date / Time No Known Allergies (No Known Allergy Verified 02/10/25 13:46 Allergies*) Home Medications ?Medication ?Instructions ?Recorded ?Confirmed ?Last Taken ?Type amlodipine 10 mg tablet (Norvasc) 10 mg PO DAILY 03/27/20 02/10/25 06/23/24 History atorvastatin 20 mg tablet 20 mg PO BEDTIME 03/27/20 02/10/25 06/23/24 History calcium polycarbophil 625 mg tablet 1,250 mg PO DAILY 03/27/20 02/10/25 06/23/24 History cyanocobalamin (vitamin B-12) 1,000 mcg PO DAILY 03/27/20 02/10/25 06/23/24 History 1,000 mcg tablet mirtazapine 15 mg tablet 15 mg PO BEDTIME 02/14/21 02/10/25 06/23/24 History carvedilol 12.5 mg tablet 12.5 mg PO BID 05/29/22 02/10/25 06/23/24 History dapagliflozin propanediol 10 mg 10 mg PO DAILY 09/10/23 02/10/25 02/06/25 History tablet (Farxiga) insulin glargine 100 unit/mL (3 36 unit subcut BID 06/26/24 02/10/25 06/23/24 History mL) subcutaneous pen (Lantus Solostar U-100 Insulin) meclizine 25 mg tablet 25 mg PO TID PRN dizziness 06/26/24 02/10/25 06/23/24 History olmesartan 5 mg tablet 5 mg PO DAILY 06/26/24 02/10/25 06/23/24 History oxycodone 5 mg tablet 5 mg PO Q8H PRN severe pain 06/26/24 02/10/25 06/23/24 History Exam Exam Date and Time: 02/10/25 1350 Height,Weight and Vital Signs: Height 5 ft 3 in Weight 78.8 kg Vital Signs Temperature 98.1 F 02/10/25 13:37 Pulse Rate 75 02/10/25 13:37 Respiratory Rate 18 02/10/25 13:37 Blood Pressure 152/76 H 02/10/25 13:37 Pulse Oximetry 96 02/10/25 13:37 Oxygen Delivery Method Room Air 02/10/25 13:37 Temperature 98.1 F 02/10/25 13:37 Pulse Rate 75 02/10/25 13:37 Respiratory Rate 18 02/10/25 13:37 Blood Pressure 152/76 H 02/10/25 13:37 Pulse Oximetry 96 02/10/25 13:37 Oxygen Delivery Method Room Air 02/10/25 13:37 Airway Mallampati Class: III (large neck circumference) TM Dist: <=3cm Neck ROM: Full Loose/Missing/Broken Teeth: Yes (poor dentition - multiple missing and broken teeth) Heart: S1S2 Lungs: CTAB Assessment and Plan Assessment Anesthesia Assessment: Anesthesia Plan Discussed and Chart Reviewed Final Anesthetic Review Family History of Problems with Anesthesia: No History of Problems with Anesthesia: No NPO: Yes ASA Class: III Final Preanesthetic Review: No Changes in Pt Med Stat, Meds/Allgs Chart Reviewed, Consent Obtained/Reviewed (electrical and electronic assembler at bedside for translation) and Anes Risks/Benef Reviewed Patient Risk: Intermediate Procedure Risk: Low Anesthetic Plan Anesthetic Plan: MAC: and Agree w/ Assess. and Plan Disposition: Standard PACU
--- NOTE | 2025-02-10 14:59 | W.PM.OPN ---
Operative Note Operative Note Date of Service: 02/10/25 Narrative: FLEXIBLE TRANSORAL UPPER GASTROINTESTINAL ENDOSCOPY WITH BIOPSIES Pre-op diagnosis: FU of gastric ca, Epigastric pain, GERD Post-op diagnosis: GERD, Gastritis, anastomotic ulcer Endoscopist:? Trenton Mueller MD Anesthesia:?MAC UPPER ENDOSCOPY Consent: Indications for the procedure and potential complications of bleeding, perforation, reaction to medications and missed diagnosis were discussed with the patient and informed consent was obtained. Instrument: Olympus GIF H 190 mid size upper endoscope Monitoring: Vital signs and clinical assessment, continuous EKG monitoring, Pulse oximetry, Carbon Dioxide monitoring and blood pressure monitoring were done throughout the procedure. Procedure: The patient was placed in the left lateral decubitis position and pre-procedure medications were administered and a bite block was placed. The endoscope was inserted into the mouth and advanced under direct vision to the third part of duodenum. A careful inspection was made as the upper endoscope was withdrawn including a retroflexed examination of the proximal stomach; Findings and interventions are described below. Findings: Larynx: Normal Esophagus: Tortuous esophagus with increased tertiary contractions without stricture or ring. GE junction at 38 cms. No esophagitis or Silva s. Stomach: Diffuse gastric erythema - biopsies were obtained from the gastric body.? Gastro-jejunal anastomosis at 50 cms - biopsies were obtained. A 15 to 18 mm non-bleeding ulcer covered with white exudate on jejunal side of gastrojejunal anastomosis - multiple biopsies were obtained Grade 2 flap valve on retroflexed examination of the cardia Jejunum: Normal small bowel mucosa - biopsies were obtained to check for celiac sprue. Intervention:?Biopsies as noted above Impression and Post Procedure Diagnosis: Endoscopy Findings: ESOPHAGUS: Tortuous esophagus with increased tertiary contractions without stricture or ring. STOMACH: Gastro-jejunal anastomosis at 50 cms - biopsies were obtained. A 15 to 18 mm non-bleeding ulcer covered with white exudate on jejunal side of gastrojejunal anastomosis - JEJUNUM: Normal small bowel mucosa - biopsies were obtained to check for celiac sprue. Plan: Pt has a FU appointment on 06/15/[address] Mueller. Above findings were reviewed with the patient and relevant handouts were given and the discharge area. BIOPSIES SHOWED: A. Small bowel, biopsy: Small bowel mucosa within normal limits; preserved villous architecture and no increased intraepithelial lymphocytes seen. B. Small bowel, anastomotic ulcer, biopsy: Active enteritis with ulcer and reactive epithelial changes in keeping with anastomotic site; negative for Helicobacter pylori and dysplasia. C. Stomach, anastomosis, biopsy: Gastric body mucosa with mild chronic active inflammation and intestinal metaplasia; negative for Helicobacter pylori and dysplasia. D. Stomach, body, biopsy: Gastric body mucosa within normal limits; negative for Helicobacter pylori, intestinal metaplasia and dysplasia
[2025-02-10 15:03] VITALS: BP 116/75; PULSE 79; RESP 16; TEMP 36.1; O2SAT 96
[2025-02-10 15:18] VITALS: BP 131/80; PULSE 76; RESP 18; TEMP 36.9; O2SAT 98
== END 2025-02-10 15:34 | disposition home or self-care (01) ==
PROVIDERS: PCP Internal Medicine; Visit Provider Internal Medicine Gastroenterology
PROC: 0DJ08ZZ Inspection of Upper Intestinal Tract, Via Natural or Artificial Opening Endoscopic (ICD-10-PCS; CPT 43235; principal; 2025-02-10 15:00)
DX: R10.13 Epigastric pain (principal); K28.9 Gastrojejunal ulcer, unspecified as acute or chronic, without hemorrhage or perforation; Z85.028 Personal history of other malignant neoplasm of stomach; Z85.09 Personal history of malignant neoplasm of other digestive organs; Z92.21 Personal history of antineoplastic chemotherapy; Z98.0 Intestinal bypass and anastomosis status; Z90.3 Acquired absence of stomach [part of]; K22.4 Dyskinesia of esophagus; K76.0 Fatty (change of) liver, not elsewhere classified; K76.89 Other specified diseases of liver; D50.9 Iron deficiency anemia, unspecified; K29.70 Gastritis, unspecified, without bleeding; E11.22 Type 2 diabetes mellitus with diabetic chronic kidney disease; I12.9 Hypertensive chronic kidney disease with stage 1 through stage 4 chronic kidney disease, or unspecified chronic kidney disease; N18.31 Chronic kidney disease, stage 3a; F32.A Depression, unspecified; E78.00 Pure hypercholesterolemia, unspecified; E53.8 Deficiency of other specified B group vitamins; Z87.442 Personal history of urinary calculi; Z79.4 Long term (current) use of insulin; Z79.84 Long term (current) use of oral hypoglycemic drugs; Z79.891 Long term (current) use of opiate analgesic; Z79.52 Long term (current) use of systemic steroids; Z79.899 Other long term (current) drug therapy; Z98.890 Other specified postprocedural states; Z87.891 Personal history of nicotine dependence
CPT/HCPCS: 43239; 82947; 88305; 88313; 88342; J2704

== ENCOUNTER → 2025-02-10 12:01 | Outpatient (BNV) | payer OTHER, SELFPAY | PROVIDERS: PCP Internal Medicine; Visit Provider Internal Medicine Gastroenterology | DX: K21.9 Gastro-esophageal reflux disease without esophagitis (principal); K29.70 Gastritis, unspecified, without bleeding; K28.9 Gastrojejunal ulcer, unspecified as acute or chronic, without hemorrhage or perforation; Z98.0 Intestinal bypass and anastomosis status | CPT/HCPCS: 43239 ==

== ENCOUNTER 2025-03-28 16:48 | Outpatient (REF) | payer OTHER, SELFPAY ==
--- OUTSIDE RECORDS SUMMARY | 2025-03-28 14:00 | XMS_ITS | Encounter Summary ---
Author Organization [employer] Address [address] [facility] [address] [address] [place] [address] Care Team Providers Care Dredge Pipeman Name Role Phone Sindy Obrien MD Primary Care Provide r Edgard Dasilva PharmD Unavailable [phone] Reason for Visit * Reason Comments PACK CHANGER RV Encounter Details Date Type Department Care Team (Latest Contact Info) Description 03/28/2025 2:00 PM EDT Clinical Support [facility] [address] [place] [address] 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 RN Long-term current use of opiate analgesic (Primary Dx) Social History Tobacco Use Types [...] Progress Notes * 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 RN - 03/28/2025 2:00 PM EDT SUBJECTIVE: Frantz Mccormack is a 74 y.o. year old male who presents for PACK CHANGER RV Preferred language for medical information: Tanzanian Interpreted needed: Yes, staff member Laury [place] Frantz Mccormack does report adherence to Oxycodone 5 mg, take 1 tablet every 8 hours PRN, last refilled 03/21/2025. States he uses 2 doses a day, when his pain is bad he will take a 3rd dose. The patient last took Oxycodone on: 03/28/2025 Medication is: 50% % effective at alleviating pain. OBJECTIVE: PAINT TESTER checked: 03/28/2025 Pill count completed for Oxycodone , count today is 70 , anticipated count should be 62, this is asexpected. Vital Signs Pain Score: 7 Pain Loc: Shoulder Pain Education: Yes Additional pain site: both shoulders and right arm Last PCP visit: 02/09/2025 Controlled substance agreement signed: Controlled Substance Agreement 02/23/2025 PACK CHANGER Tier: 1 Current Medications[1] Smoking status: Denies ETOH use: Denies Illicit substances: Denies Marijuana use: No Lab Results Component Value Date POCTHC Negative 03/28/2025 POCCOCAINEUR Negative 03/28/2025 POCOPIATEUR Negative 03/28/2025 DOAUR Negative 03/28/2025 POCAMPHETAMI Negative 03/28/2025 POCBENZODIUR Negative 03/28/2025 POCBARBSCRN Negative 03/28/2025 POCMETHADOUR Positive (A) 03/28/2025 POCBUPSCRN Negative 03/28/2025 POCTCAUR Negative 03/28/2025 POCMDMAUR Negative 03/28/2025 POCOXYCODONE Positive (A) 03/28/2025 POCPHENCYCUR Negative 03/28/2025 PROPOXUR Negative 03/28/2025 FENTANYLURIN Negative 03/28/2025 Reviewed UTOX results was pos MTD. Explained I would send urine out for MTD confirmation. Pt has had UTOX Pos MTD before, but the confirmations have all returned negative for MTD. Advised patient I would call him if the results come back abnormal. ASSESSMENT: Encounter Diagnosis Name Primary? Long-term current use of opiate analgesic Yes PLAN: Information on pain group given: Previously discussed Information on acupuncture given: Previously discussed Narcan education provided: Previously discussed Narcan prescription: active Will update PCP with UTOX results. Frantz Mccormack will continue taking medication as prescribed and follow up at the next PACK CHANGER visit or sooner if needed. Frantz Mccormack has verbalized understanding of care plan. Future Appointments Date Time Provider Department Center 03/31/2025 11:00 AM Edgard Dasilva PharmD MEDICINE [facility] 05/01/2025 1:00 PM 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 RN [facility] 05/17/2025 2:45 PM Sindy Carlson MD [facility] 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 RN [1] Current Outpatient Medications: oxyCODONE (Roxicodone) 5 MG immediate release tablet, Take 1 tablet (5 mg) by mouth every 8 (eight)hours if needed for severe pain for up to 28 days. Do not start before March 21, 2025., Disp: 84 tablet, Rfl: 0 Alcohol Swabs 70 % pads, Use to test blood sugar three times daily, Disp: , Rfl: amLODIPine (Norvasc) 10 MG tablet, TAKE 1 TABLET BY MOUTH EVERY MORNING, Disp: 90 tablet, Rfl: 1 atorvastatin (Lipitor) 20 MG tablet, TAKE 1 TABLET BY MOUTH EVERY MORNING, Disp: 90 tablet, Rfl: 1 carvedilol (Coreg) 12.5 MG tablet, TAKE 1 TABLET BY MOUTH TWICE DAILY IN THE MORNING AND IN THE EVENING WITH FOOD, Disp: 60 tablet, Rfl: 3 cyanocobalamin (Vitamin B-12) 1000 MCG tablet, TAKE 1 TABLET BY MOUTH EVERY MORNING, Disp: 90 tablet, Rfl: 1 dapagliflozin (Farxiga) 10 MG, Take 1 tablet (10 mg) by mouth Once per day., Disp: 30 tablet, Rfl: 11 ferrous sulfate 325 (65 Fe) MG tablet, Take by mouth every 12 (twelve) hours., Disp: , Rfl: fluticasone (Flonase) 50 MCG/ACT nasal spray, Administer 1 spray into each nostril Once per day., Disp: 16 g, Rfl: 0 glucose 4 g chewable tablet, Chew 4 tablets (16 g) if needed for low blood sugar., Disp: 30 tablet,Rfl: 11 glucose blood (FREESTYLE LITE) test strip, Use to test blood sugar three times daily, Disp: 100 each, Rfl: 11 insulin degludec (Tresiba FlexTouch) 200 UNIT/ML injection, Inject 54 units subcutaneously once daily, Disp: 9 mL, Rfl: 5 insulin lispro (HumaLOG KWIKPEN) 100 UNIT/ML injection, Inject 4 units subcutaneously before breakfast and 20 units before dinner., Disp: 15 mL, Rfl: 5 insulin pen needle (BD Pen Needle Candie U/F) 32G x 4 mm misc, Use with insulin three times daily as directed, Disp: 100 each, Rfl: 11 Lancets misc, Use to test blood sugar three times daily, Disp: 100 each, Rfl: 11 olmesartan (BENIcar) 5 MG tablet, TAKE 1 TABLET BY MOUTH EVERY MORNING, Disp: 90 tablet, Rfl: 0 potassium citrate CR (Urocit-K-10) 10 mEq ER tablet, Take 2 tablets by mouth 2 times daily., Disp: , Rfl: sodium chloride (Kildeer Nasal [place]) 0.65 % nasal spray, Administer 1 spray into each nostril if needed for congestion., Disp: 30 mL, Rfl: 0 Tirzepatide (Mounjaro) 5 MG/0.5ML solution auto-injector, Inject 5 mg under the skin 1 (one) time per week., Disp: 2 mL, Rfl: 5 documented in this encounter Plan of Treatment Upcoming Encounters Date Type Department Care Team (Late st Contact Info) Description 03/31/2025 11:00 AM EDT Medication Management [address] [phone] Edgard Dasilva, Nithya [address] [place] [phone] 05/01/2025 1:00 PM EST Clinical Support [address] [phone] 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 RN 05/17/2025 2:45 PM EST Office Visit [address] [phone] Sindy Obrien MD [address] [place] [address] [phone] documented as of this encounter Goals Goal Patient Goal Type Associated Problems Recent Progress Patient-Stated? Author Hemoglobin A1c < 8 Result Component 9.2(02/09/2025 2:01 PM EDT) No Caroline Neri, Nithya documented as of this encounter Procedures Procedure Name Priority Date/Time Associated Diagnosis Comments POCT VELASQUEZ-14 URINE DRUG SCREEN Routine 03/28/2025 2:05 PM EDT Long-term current use of opiate analgesic METHADONE SCREEN, URINE Routine 03/28/2025 1:45 PM EDT Long-term current use of opiate analgesic documented in this encounter Results * (ABNORMAL) POCT VELASQUEZ-14 Urine Drug Screen (03/28/2025 2:05 PM EDT) THC Negative Negative Cocaine Screen, Urine Negative Negative Opiate Screen, Urine Negative Negative Methamphetamine Screen Urine Negative Negative Amphetamine Screen, Urine Negative Negative Benzodiazepines Screen, Urine Negative Negative Barbiturate Screen, Urine Negative Negative Methadone Screen, Urine Positive(A) Negative Buprenophine Screen, Urine Negative Negative TCA, Urine Negative Negative MDMA Urine Negative Negative ng/mL Oxycodone Screen, Urine Positive(A) Negative Comment:PACK CHANGER pt, on oxycodone Phencyclidine (PCP), Urine Negative Negative Propoxyphene, Urine Negative Negative Fentanyl, Urine Negative Negative Urine Urine specimen obtained by clean catch procedure / Unknown 03/28/2025 2:05 PM EDT Narrative 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 RN - 03/28/2025 2:05 PM EDT UTOX cup Lot#[id number] Exp. 03/14/26 Internal Pass Control us Sindy Carlson MD POINT OF CARE TEST EN TER/EDIT ORDERABLES Final Result * Drug Monitoring, Methadone Metabolite, Screen, Urine (03/28/2025 1:45 PM EDT) Methadone Screen, Urine Not Detected Not Detect ng/mL [facility] Comment:Methadone cut-off is 300 ng/mL.Positive results are unconfirmed and should not be used fornon-medical purposes. Urine (Urine, Random) 03/28/2025 1:45 PM EDT 03/28/2025 4:48 PM EDT us Sindy Carlson MD LAB URINE ORDERABLES Final Result [facility] [address] [place] [phone] documented in this encounter Visit Diagnoses Diagnosis Long-term current use of opiate analgesic- Primary Encounter for long-term (current) use of other medications documented in this encounter Additional Health Concerns Assessment Noted Time PHQ-9 Depression Total Score: 0 06/06/20 24 1:16 PM EST documented as of this encounter Care Teams Dredge Pipeman Relationship Specialty Start Date End Date Sindy Obrien MD [address] [place] [address] PCP - General Family Medicine 03/28/19 Edgard Dasilva, AtiyaD [address] [place] [address] Pharmacist Pharmacy 12/23/24 documented as of this encounter
--- OUTSIDE RECORDS SUMMARY | 2025-03-28 21:10 | XMS_ITS | Encounter Summary ---
Author Organization [employer] Address [address] [facility] [address] 7t [place] [address] Care Team Providers Care Carroter Name Role Phone Sindy Obrien MD Primary Care Provide r Edgard Dasilva PharmD Unavailable [phone] Reason for Visit * Reason Comments Med Refill Encounter Details Date Type Department Care Team (Late st Contact Info) Description 05/20/2024 Refill [facility] [address] [place], [place] [phone] Sindy Obrien MD [address] [place] [address] HTN (hypertension), benign; Type 2 diabetes mellitus with hyperglycemia, with long-term current use of insulin ([facility]) Social History Tobacco Use Types [...] Description 03/31/2025 11:00 AM EDT Medication Management [address] [address] Edgard Dasilva, AtiyaD [address] [place] [address] 05/01/2025 1:00 PM EST Clinical Support [address] [address] 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 RN 05/17/2025 2:45 PM EST Office Visit [address] [address] Sindy Obrien MD [address] [place] [address] documented as of this encounter Goals Goal Patient Goal Type Associated Problems Recent Progress Patient-Stated? Author Hemoglobin A1c < 8 Result Component 9.2(02/09/2025 2:01 PM EDT) No Caroline Neri, Nithya documented as of this encounter Visit Diagnoses Diagnosis HTN (hypertension), benign Essential hypertension, benign Type 2 diabetes mellitus with hyperglycemia, with long-term current use of insulin (HCC) documented in this encounter Additional Health Concerns Assessment Noted Time PHQ-9 Depression Total Score: 0 10/24/19 23 3:05 PM EDT documented as of this encounter Care Teams Carroter Relationship Specialty Start Date End Date Sindy Obrien MD [address] [place] [address] PCP - General Family Medicine 03/28/19 Edgard Dasilva, AtiyaD [address] [place] [address] Pharmacist Pharmacy 12/23/24 documented as of this encounter
--- OUTSIDE RECORDS SUMMARY | 2025-03-28 21:10 | XMS_ITS | Encounter Summary ---
Author Organization [employer] Address 75 [facility] 7t [place] [address] Care Team Providers Care Hospitality Host Name Role Phone Sindy Obrien MD Primary Care Provide r Edgard Dasilva PharmD Unavailable [phone] Encounter Details Date Type Department Care Team (Late st Contact Info) Description 05/20/2022 Orders Only [facility] [address] [place] [address] Bhakti Paredes DO [address] [place] [address] Hypertension, unspecified type (Primary Dx) Social History [...] Description 03/31/2025 11:00 AM EDT Medication Management [facility] [address] [place] [address] Edgard Dasilva, PharmD [address] [place], [place] [phone] 05/01/2025 1:00 PM EST Clinical Support [address] [phone] 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 RN 05/17/2025 2:45 PM EST Office Visit [address] [phone] Sindy Obrien MD [address] [place] [address] [phone] documented as of this encounter Procedures Procedure Name Priority Date/Time Associated Diagnosis Comments BASIC METABOLIC PANEL Routine 07/08/2022 2:26 PM EST Hypertension, unspecified type documented in this encounter Results * (ABNORMAL) Basic Metabolic Panel (07/08/2022 2:26 PM EST) Glucose 444(H) 65 - 139 mg/dL [employer] Comment: Verified by repeat analysis. Non-fasting reference interval Urea Nitrogen (BUN) 14 7 - 25 mg/dL [employer] Creatinine, Serum 1.23 0.70 - 1.28 mg/dL [employer] [place] [employer] eGFR 62 > OR = 60 mL/min/1 .73m2 [employer] [place] [employer] Comment: The eGFR is based on the CKD-EPI 2020 equation. To calculate the new eGFR from a previous Creatinine or Cystatin C result, go to https://www.kidney.org/professionals/ kdoqi/gfr%5Fcalculator BUN/Creatinine Ratio NOT APPLICABLE 6 - 22 (calc) [employer] [place] [employer] Sodium 132(L) 135 - 146 mmol/L [employer] [place] [employer] Potassium 4.3 3.5 - 5.3 mmol/L [employer] [place] [employer] Chloride 96(L) 98 - 110 mmol/L [employer] [place] [employer] Carbon Dioxide 29 20 - 32 mmol/L [employer] [place] [employer] Calcium 9.3 8.6 - 10.3 mg/dL [employer] Blood Venous blood specimen / Unknown 07/08/2022 2:26 PM EST 07/08/2022 2:27 PM EST Narrative [facility] - 07/09/2022 12:11 PM EST FASTING:NO FASTING: NO Bhakti Reggie DO LAB BLOOD ORDERABLES Final R esult [facility] [address] [facility], [place] [address] [employer] [facility] [address] [facility], (Nl[address]) [place] [address] documented in this encounter Visit Diagnoses Diagnosis Hypertension, unspecified type- Primary documented in this encounter Care Teams Hospitality Host Relationship Specialty Start Date End Date Sindy Obrien MD [address] [place] [address] PCP - General Family Medicine 03/28/19 Edgard Dasilva, PharmD [address] [place] [address] Pharmacist Pharmacy 12/23/24 documented as of this encounter
--- OUTSIDE RECORDS SUMMARY | 2025-03-28 21:10 | XMS_ITS | Encounter Summary ---
Author Organization [employer] [facility] Address 75 [facility] 7t [place] [address] Care Team Providers Care Net Trainer Name Role Phone Sindy Obrien MD Primary Care Provide r Edgard Dasilva PharmD Unavailable [phone] Encounter Details Date Type Department Care Team (Late st Contact Info) Description 02/13/2023 Orders Only [facility] [address] [place] [address] Provider, MD Oren Social History Tobacco Use [...] Description 03/31/2025 11:00 AM EDT Medication Management [address] [address] Edgard Dasilva, PharmD 230 [place] [address] 05/01/2025 1:00 PM EST Clinical Support [facility] [address] [place] [address] 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 RN 05/17/2025 2:45 PM EST Office Visit [facility] [address] [place] [address] Sindy Obrien MD [address] [place] [address] documented as of this encounter Procedures Procedure [...] documented as of this encounter Care Teams Net Trainer Relationship Specialty Start Date End Date Sindy Obrien MD [address] [place] [address] PCP - General Family Medicine 03/28/19 Edgard Dasilva, AtiyaD [address] [place] [address] Pharmacist Pharmacy 12/23/24 documented as of this encounter
--- OUTSIDE RECORDS SUMMARY | 2025-03-28 21:10 | XMS_ITS | Encounter Summary ---
Author Organization [employer] Address 75 [facility] 7t [place] [address] Care Team Providers Care Explosive Expert Name Role Phone Sindy Obrien MD Primary Care Provide r Edgard Dasilva PharmD Unavailable [phone] Encounter Details Date Type Department Care Team (Latest Contact Info) Description 03/28/2025 Travel Social History Tobacco Use Types Packs/Day [...] Description 03/31/2025 11:00 AM EDT Medication Management [address] [address] Edgard Dasilva, AtiyaD [address] [place] [address] 05/01/2025 1:00 PM EST Clinical Support [address] [address] 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 RN 05/17/2025 2:45 PM EST Office Visit [address] [address] Sindy Obrien MD [address] [place] [address] documented as of this encounter Goals Goal Patient Goal Type Associated Problems Recent Progress Patient-Stated? Author Hemoglobin A1c < 8 Result Component 9.2(02/09/2025 2:01 PM EDT) No Caroline Neri, AtiyaD documented as of this encounter Visit Diagnoses Not on filedocumented in this encounter Additional Health Concerns Assessment Noted Time PHQ-9 Depression Total Score: 0 06/06/20 24 1:16 PM EST documented as of this encounter Care Teams Explosive Expert Relationship Specialty Start Date End Date Sindy Obrien MD [address] [place] [address] [phone] PCP - General Family Medicine 03/28/19 Edgard Dasilva, PharmD 230 [place] [address] Pharmacist Pharmacy 12/23/24 documented as of this encounter
--- OUTSIDE RECORDS SUMMARY | 2025-03-28 21:10 | XMS_ITS | Encounter Summary ---
Author Organization [employer] Address 75 [facility] 7t [place] [address] Care Team Providers Care Paperboard Machine Operator Name Role Phone Sindy Obrien MD Primary Care Provide r Edgard Dasilva PharmD Unavailable [phone] Reason for Visit * Reason Comments Med Refill Encounter Details Date Type Department Care Team ([facility] Contact Info) Description 10/29/2022 Refill [facility] 230 [place] [address] [facility] 230 [place] [address] Depressive disorder Social History Tobacco Use Types [...] Upcoming Encounters Date Type Department Care Team ([facility] Contact Info) Description 03/31/2025 11:00 AM EDT Medication Management [address] [address] Edgard Dasilva, PharmD [address] [place] [address] 05/01/2025 1:00 PM EST Clinical Support [address] [address] 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, MANSI 05/17/2025 2:45 PM EST Office Visit [address] [address] Sindy Obrien MD [address] [place] [address] documented as of this encounter Visit Diagnoses Diagnosis Depressive disorder Depressive disorder, not elsewhere classified documented in this encounter Additional Health Concerns Assessment Noted Time PHQ-9 Depression Total Score: 0 10/24/19 23 3:05 PM EDT documented as of this encounter Care Teams Paperboard Machine Operator Relationship Specialty Start Date End Date Sindy Obrien MD [address] [place] [address] PCP - General Family Medicine 03/28/19 Edgard Dasilva, PharmD [address] [place] [address] Pharmacist Pharmacy 12/23/24 documented as of this encounter
--- OUTSIDE RECORDS SUMMARY | 2025-03-28 21:10 | XMS_ITS | Encounter Summary ---
Author Organization [employer] Address [address] [facility] [address] 7t [place] [address] Care Team Providers Care Treatment Specialist Name Role Phone Sindy Obrien MD Primary Care Provide r Edgard Dasilva PharmD Unavailable [phone] Reason for Visit * Reason Comments Med Refill Encounter Details Date Type Department Care Team (Late st Contact Info) Description 12/15/2023 Refill [facility] 230 [place] [address] Sindy Obrien MD 230 [place] [address] Chronic right shoulder pain Social History Tobacco [...] Description 03/31/2025 11:00 AM EDT Medication Management [address] [address] Edgard Dasilva, AtiyaD [address] [place] [address] 05/01/2025 1:00 PM EST Clinical Support [address] [address] 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 RN 05/17/2025 2:45 PM EST Office Visit [address] [address] Sindy Obrien MD [address] [place] [address] documented as of this encounter Goals Goal Patient Goal Type Associated Problems Recent Progress Patient-Stated? Author Hemoglobin A1c < 8 Result Component 9.2(02/09/2025 2:01 PM EDT) No Caroline Neri PharmD documented as of this encounter Visit Diagnoses Diagnosis Chronic right shoulder pain Pain in joint, shoulder region documented in this encounter Additional Health Concerns Assessment Noted Time PHQ-9 Depression Total Score: 0 10/24/19 23 3:05 PM EDT documented as of this encounter Care Teams Treatment Specialist Relationship Specialty Start Date End Date Sindy Obrien MD [address] [place] [address] PCP - General Family Medicine 03/28/19 Edgard Dasilva, PharmD [address] [place] [address] [place] [address] Pharmacist Pharmacy 12/23/24 documented as of this encounter
--- OUTSIDE RECORDS SUMMARY | 2025-03-28 21:10 | XMS_ITS | Encounter Summary ---
Author Organization [employer] Address [address] [facility] [address] 7t [place] [address] Care Team Providers Care Director Communications Name Role Phone Sindy Obrien MD Primary Care Provide r Edgard Dasilva PharmD Unavailable Reason for Visit * Reason Onset Date Comments UTOX Abnormal 03/28/2025 Encounter Details Date Type Department Care Team ([facility] st Contact Info) Description 03/28/2025 Telephone [facility] MED[facility]INE 230 [place] [address] 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 RN UTOX Abnormal Social History Tobacco Use Types Packs/Day Years [...] Telephone Encounter - 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 RN - 03/28/2025 2:11 PM EDT Pt had [facility] appointment today UTOX was Pos MTD, sent out for confirmation. Pt has had Pos MTD in UTOX X2 before, each confirmation returned negative for MTD. documented in this encounter Plan of Treatment Upcoming Encounters Date Type Department Care Team (Late st Contact Info) Description 03/31/2025 11:00 AM EDT Medication Management [address] [address] Edgard Dasilva, PharmD [address] [place] [address] 05/01/2025 1:00 PM EST Clinical Support [address] [address] 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 RN 05/17/2025 2:45 PM EST Office Visit [address] [address] Sindy Obrien MD [address] [place] [address] documented as of this encounter Goals Goal Patient Goal Type Associated Problems Recent Progress Patient-Stated? Author Hemoglobin A1c < 8 Result Component 9.2(02/09/2025 2:01 PM EDT) No Caroline Neri, PharmD documented as of this encounter Visit Diagnoses Not on filedocumented in this encounter Additional Health Concerns Assessment Noted Time PHQ-9 Depression Total Score: 0 06/06/20 24 1:16 PM EST documented as of this encounter Care Teams Director Communications Relationship Specialty Start Date End Date Sindy Obrien MD 230 [place] [address] PCP - General Family Medicine 03/28/19 Edgard Dasilva, AtiyaD 230 [place] [address] Pharmacist Pharmacy 12/23/24 documented as of this encounter
--- OUTSIDE RECORDS SUMMARY | 2025-03-28 21:10 | XMS_ITS | Encounter Summary ---
Author Organization [employer] Address 75 [facility] 7t [place] [address] Care Team Providers Care Optical Scientist Name Role Phone Sindy Obrien MD Primary Care Provide r Edgard Dasilva PharmD Unavailable [phone] Reason for Visit * Reason Onset Date Comments FYI 11/18/2023 Encounter Details Date Type Department Care Team ([facility] st Contact Info) Description 11/18/2023 Telephone [facility] 230 [place] [address] Sindy Obrien MD 230 [place], [place] [phone] FYI Social History Tobacco Use Types Packs/Day [...] - 11/18/2023 10:58 AM EDT Tc from [facility] with Dr Leslie (orthopedics) calling to inform they are going to be prescribing 2 weeks of Oxy 10MG after surgery. documented in this encounter Plan of Treatment Upcoming Encounters Date Type Department Care Team (Late st Contact Info) Description 03/31/2025 11:00 AM EDT Medication Management [address] [address] Edgard Dasilva, Nithya [address] [place] [address] 05/01/2025 1:00 PM EST Clinical Support [address] [address] 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 RN 05/17/2025 2:45 PM EST Office Visit [address] [address] Sindy Obrien MD [address] [place] [address] documented as of this encounter Goals Goal [...] documented as of this encounter Care Teams Optical Scientist Relationship Specialty Start Date End Date Sindy Obrien MD [address] [place] [address] PCP - General Family Medicine 03/28/19 Edgard Dasilva, PharmD 230 [place] [address] Pharmacist Pharmacy 12/23/24 documented as of this encounter
--- OUTSIDE RECORDS SUMMARY | 2025-03-28 21:10 | XMS_ITS | Encounter Summary ---
Author Organization [employer] Address [address] [facility] [address] 7t [place] [address] Care Team Providers Care Wall Covering Contractor Name Role Phone Sindy Obrien MD Primary Care Provide r Edgard Dasilva PharmD Unavailable [phone] Reason for Visit * Reason Comments Med Refill Encounter Details Date Type Department Care Team ([facility] st Contact Info) Description 06/02/2023 Refill [facility] 230 [place], [place] [phone] Sindy Obrien MD 230 [place] [address] Vitamin D deficiency, unspecified Social History Tobacco [...] Description 03/31/2025 11:00 AM EDT Medication Management [address] [address] Edgard Dasilva PharmD [address] [place] [address] 05/01/2025 1:00 PM EST Clinical Support [address] [address] 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 RN 05/17/2025 2:45 PM EST Office Visit [address] [address] Sindy Obrien MD [address] [place] [address] documented as of this encounter Visit Diagnoses Diagnosis Vitamin D deficiency, unspecified documented in this encounter Additional Health Concerns Assessment Noted Time PHQ-9 Depression Total Score: 0 10/24/19 23 3:05 PM EDT documented as of this encounter Care Teams Wall Covering Contractor Relationship Specialty Start Date End Date Sindy Obrien MD [address] [place] [address] PCP - General Family Medicine 03/28/19 Edgard Dasilva, PharmD [address] [place] [address] Pharmacist Pharmacy 12/23/24 documented as of this encounter
--- OUTSIDE RECORDS SUMMARY | 2025-03-28 21:10 | XMS_ITS | Encounter Summary ---
Author Organization [employer] Address [address] [facility] [address] 7t [place] [address] Care Team Providers Care Nurse Research Name Role Phone Sindy Obrien MD Primary Care Provide r Edgard Dasilva PharmD Unavailable [phone] Reason for Visit * Reason Comments Med Refill Encounter Details Date Type Department Care Team (Late st Contact Info) Description 09/03/2023 Refill [facility] 230 [place], [place] [phone] Sindy Obrien MD 230 [place] [address] Chronic right shoulder pain Social History Tobacco [...] Description 03/31/2025 11:00 AM EDT Medication Management [address] [address] Edgard Dasilva, PharmRory [address] [place] [address] 05/01/2025 1:00 PM EST Clinical Support [address] [address] 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 RN 05/17/2025 2:45 PM EST Office Visit [address] [address] Sindy Obrien MD [address] [place] [address] documented as of this encounter Visit Diagnoses Diagnosis Chronic right shoulder pain Pain in joint, shoulder region documented in this encounter Additional Health Concerns Assessment Noted Time PHQ-9 Depression Total Score: 0 10/24/19 23 3:05 PM EDT documented as of this encounter Care Teams Nurse Research Relationship Specialty Start Date End Date Sindy Obrien MD [address] [place] [address] PCP - General Family Medicine 03/28/19 Edgard Dasilva, PharmD 230 [place] [address] Pharmacist Pharmacy 12/23/24 documented as of this encounter
--- OUTSIDE RECORDS SUMMARY | 2025-03-28 21:10 | XMS_ITS | Encounter Summary ---
Author Organization [employer] Address [address] [facility] [address] 7t [place] [address] Care Team Providers Care Baling Machine Operator Name Role Phone Sindy Obrien MD Primary Care Provide r Edgard Dasilva PharmD Unavailable [phone] Encounter Details Date Type Department Care Team ([facility] st Contact Info) Description 09/03/2023 Orders Only [facility] 230 [place] [address] Sindy Obrien MD 230 [place] [address] Chronic right shoulder pain (Primary Dx) Social [...] Description 03/31/2025 11:00 AM EDT Medication Management [address] [address] Edgard Dasilva, PharmD [address] [place] [address] 05/01/2025 1:00 PM EST Clinical Support [address] [address] 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 RN 05/17/2025 2:45 PM EST Office Visit [address] [address] Sindy Obrien MD [address] [place] [address] documented as of this encounter Procedures Procedure [...] PM EDT Narrative 09/08/2023 11:17 AM EDT [address] [address] [address] Scan Report Signed Patient: Frantz Fink MR#: [id number] : 1950 Acct:[id number] Age/Sex: 73 / M ADM Date: 09/07/23 Loc: HO.CT Attending Dr: Christa Ferrera MD Ordering Physician: Chrsita Ferrera MD Date of Service: 09/07/23 Procedure(s): CT chest w IV con Accession Number(s): [id number] cc: Sindy Obrien MD; Christa Ferrera MD [...] technique TOTAL EXAM DLP: 392 mGy-cm FINDINGS: LEGAL SUPPORT MANAGER: Enlarged superior mediastinum. Clear lungs. Nonobstructive bowel [...] in OV> 09/08/23 1113 DD/ 1227 TD/TT: Credit Analyst: Procedure Note Donotuseinterpreter, Image - 09/08/[address] [address] [address] Scan Report Signed Patient: Tyson Fink#: [id number] : 1Acct:[id number] Age/Sex: 73 / MADM Date: 09/07/23 Loc: HO.CT Attending Dr: Christa Ferrera MD Ordering Physician: Christa Ferrera MD Date of Service: 09/07/23 Procedure(s): CT chest w IV con Accession Number(s): [id number] cc: Sindy Obrien MD; Christa Ferrera MD [...] technique TOTAL EXAM DLP: 392 mGy-cm FINDINGS: LEGAL SUPPORT MANAGER: Enlarged superior mediastinum. Clear lungs. Nonobstructive bowel [...] in OV> 09/08/23 1113 DD/ 1227 TD/TT: Credit Analyst: us [facility] External Provider IMG CT PROCEDURES Final Result * Stress test with myocardial perfusion (09/04/2023 8:15 AM EDT) 09/04/2023 8:15 AM EDT Narrative [facility] - 09/04/2023 3:44 PM EDT [address] [address] Nuclear Medicine Report Signed Patient: Frantz Fink MR#: [id number] : 1950 Acct:[id number] Age/Sex: 73 / M ADM Date: 09/03/23 Loc: [facility] Attending Dr: Amanda SCOTT Ordering Physician: Amanda De La Paz Date of Service: 09/03/23 Procedure(s): NM cardiolite stress test Accession Number(s): [id number] cc: Sindy Obrien MD; Amanda De La [...] in OV> 09/04/23 1540 DD/ 0815 TD/TT: Credit Analyst: Procedure Note Donotuseinterpreter, Image - 09/04/[address] [address] Nuclear Medicine Report Signed Patient: Frantz FinkMR#: [id number] : 1950cct:[id number] Age/Sex: 73 / MADM Date: 09/03/23 Loc: [facility] Attending Dr: Amanda SCOTT Ordering Physician: Amanda De La Paz Date of Service: 09/03/23 Procedure(s): NM cardiolite stress test Accession Number(s): [id number] cc: Sindy Obrien MD; Amanda De La [...] in OV> 09/04/23 1540 DD/ 0815 TD/TT: Credit Analyst: [facility] External Provider CV STRE SS PROCEDURES Edited Result - Final Performing Organization Address City/State/[facility] Co de Phone Number [facility] [address] [place] [address] documented in this encounter Visit Diagnoses Diagnosis Chronic right shoulder pain- Primary Pain in joint, shoulder region documented in this encounter Additional Health Concerns Assessment Noted Time PHQ-9 Depression Total Score: 0 10/24/19 23 3:05 PM EDT documented as of this encounter Care Teams Baling Machine Operator Relationship Specialty Start Date End Date Sindy Obrien MD 230 [place] [address] PCP - General Family Medicine 03/28/19 Edgard Dasilva, Nithya [address] [place] [address] Pharmacist Pharmacy 12/23/24 documented as of this encounter
--- OUTSIDE RECORDS SUMMARY | 2025-03-28 21:10 | XMS_ITS | Encounter Summary ---
Author Organization [employer] Address [address] [facility] [address] [place] [address] Care Team Providers Care Theater Projectionist Name Role Phone Sindy Obrien MD Primary Care Provide r Edgard Dasilva PharmD Unavailable Encounter Details Date Type Department Care Team ([facility] st Contact Info) Description 02/02/2025 Orders Only [facility] MEDICINE [address] [place] [address] Sindy Obrien MD [address] [place], [place] [phone] Social History Tobacco Use Types Packs/Day Years [...] Description 03/31/2025 11:00 AM EDT Medication Management [address] [address] Edgard Dasilva, Nithya [address] [place] [address] 05/01/2025 1:00 PM EST Clinical Support [address] [address] 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 RN 05/17/2025 2:45 PM EST Office Visit [address] [address] Sindy Obrien MD [address] [place] [address] documented as of this encounter Goals Goal Patient Goal Type Associated Problems Recent Progress Patient-Stated? Author Hemoglobin A1c < 8 Result Component 9.2(02/09/2025 2:01 PM EDT) Caroline Rose, PharmD documented as of this encounter Visit Diagnoses Not on filedocumented in this encounter Additional Health Concerns Assessment Noted Time PHQ-9 Depression Total Score: 0 06/06/20 24 1:16 PM EST documented as of this encounter Care Teams Theater Projectionist Relationship Specialty Start Date End Date Sindy Obrien MD [address] [place], [place] [phone] PCP - General Family Medicine 03/28/19 Edgard Dasilva, AtiyaD [address] [place] [address] Pharmacist Pharmacy 12/23/24 documented as of this encounter
--- OUTSIDE RECORDS SUMMARY | 2025-03-28 21:10 | XMS_ITS | Encounter Summary ---
Author Organization [employer] Address [address] [facility] 7t [place] [address] Care Team Providers Care Blow Molding Machine Operator Name Role Phone Sindy Obrien MD Primary Care Provide r Edgard Dasilva PharmD Unavailable [phone] Reason for Visit * Reason Onset Date Comments telephone call 03/23/2025 Encounter Details Date Type Department Care Team ([facility] Contact Info) Description 03/23/2025 Telephone [facility] MEDICINE [address] [place] [address] Sindy Obrien MD [address] [place], [place] [phone] telephone call Social History Tobacco Use Types Packs/Day Years [...] encounter Miscellaneous Notes * Telephone Encounter - Peterson Chow RN - 03/23/2025 2:05 PM EDT TC placed to patient [phone] using [employer] #ID [id number] regarding below message. 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 RN advised patient to go to Medical records to have the form processed. Patient reported he is on his way to [facility]. Patient verbalized understanding. PT to F/U PRN. * Telephone Encounter - Sully Dasilva - 03/23/2025 11:33 AM EDT Pt walked in requesting to speak to pcp but I told the patient she is currently with patients at the moment, I told him what can I do for him and he said he wants someone to call him if possible I asked him what was it about but he only said it was about his health he didn't want to tell me more. [place] speaking documented in this encounter Plan of Treatment Upcoming Encounters Date Type Department Care Team (Late st Contact Info) Description 03/31/2025 11:00 AM EDT Medication Management [address] [address] Edgard Dasilva, AtiyaD [address] [place] [phone] 05/01/2025 1:00 PM EST Clinical Support [address] [address] 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, RN 05/17/2025 2:45 PM EST Office Visit [address] [address] Sindy Obrien MD [address] [place] [address] documented as of this encounter Goals Goal Patient Goal Type Associated Problems Recent Progress Patient-Stated? Author Hemoglobin A1c < 8 Result Component 9.2(02/09/2025 2:01 PM EDT) Caroline Rose PharmD documented as of this encounter Visit Diagnoses Not on filedocumented in this encounter Additional Health Concerns Assessment Noted Time PHQ-9 Depression Total Score: 0 06/06/20 24 1:16 PM EST documented as of this encounter Care Teams Blow Molding Machine Operator Relationship Specialty Start Date End Date Sindy Obrien MD [address] [place] [phone] PCP - General Family Medicine 03/28/19 Edgard Dasilva, PharmD [address] [place] [phone] Pharmacist Pharmacy 12/23/24 documented as of this encounter
--- OUTSIDE RECORDS SUMMARY | 2025-03-28 21:10 | XMS_ITS | Patient Health Record ---
Author Organization [facility] Address [address] [place] [address] Care Team Providers Care Ditto Machine Operator Name Role Phone Teodora Gomez Primary Care Provider UnavailDusty Iglesias Unavailable [phone] Reason For Referral No Information Medications Medication SIG (Take, Route, Frequency, Duration) Notes Start Date End Date Status metFORMIN HCl 1000 MG TOME MADHAV TABLETA 2 VECES AL RHIANNON Oral; Duration: 30 Active Lisinopril 40 MG TAKE 1 TABLET ONCE A DAY ORALLY Oral; Duration: 30 Active hydroCHLOROthiazide 25 MG TOME MADHAV TABLE TA POR VIA ORAL TODOS [place] Oral; Duration: 30 Active Simvastatin 20 MG TOME MADHAV TABLETA EN LA NOCHE Oral; Duration: 30 Active Problems Problem Type SNOMED Code ICD Code Onset Dates Problem Status W/U Status Risk Notes Problem Liver function tests abnormal (585761546) Abnormal liver function tests (790.6) Active confirmed Problem Computed tomography of abdomen abnormal (finding) (6726870388375 9107) Abnormal computed tomography of gastrointestinal tract (793.4) Active confirmed Plan Of Treatment Future Test Test Name Order Date UPPER GI ENDOSCOPY 09/29/2013 Insurance Providers Payer Name Payer Address Payer Phone Subscriber Number Group Number Insured Name Patient Relationship to Insured Coverage Start Date Coverage End Date [facility] [address] [place] [address] [id number] TATO JARA Self - patient is the insured Medical (General) History Medical History History ICD Code NIDDM HTN Hyperlipidemia kidney stones Denies AK,CVA,Lung disease,renal disease Describes an EGD and Colonos copy at [facility] in approx 2011-reports they were OK as far as he knows Surgical History Surgery Date(Month/Year) Right leg surgey-plate in upper thigh 19 78 Fatty tumor removal in back hernia repair
--- OUTSIDE RECORDS SUMMARY | 2025-03-28 21:10 | XMS_ITS | Encounter Summary ---
Author Organization [employer] Address [address] [facility] [address] [place] [address] Care Team Providers Care Environmental Engineering Technician Name Role Phone Sindy Obrien MD Primary Care Provide r Edgard Dasilva PharmD Unavailable [phone] Reason for Visit * Reason Comments Med Refill Encounter Details Date Type Department Care Team ([facility] st Contact Info) Description 04/26/2023 Refill [facility] MEDICINE [address] [place], [place] [phone] Sindy Obrien MD [address] [place] [address] HTN (hypertension), benign Social History Tobacco Use [...] Description 03/31/2025 11:00 AM EDT Medication Management [address] [address] Edgard Dasilva, PharmRory [address] [place] [phone] 05/01/2025 1:00 PM EST Clinical Support [address] [address] 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 RN 05/17/2025 2:45 PM EST Office Visit [address] [address] Sindy Obrien MD [address] [place] [phone] documented as of this encounter Visit Diagnoses Diagnosis HTN (hypertension), benign Essential hypertension, benign documented in this encounter Additional Health Concerns Assessment Noted Time PHQ-9 Depression Total Score: 0 10/24/19 23 3:05 PM EDT documented as of this encounter Care Teams Environmental Engineering Technician Relationship Specialty Start Date End Date Sindy Obrien MD [address] [place] [phone] PCP - General Family Medicine 03/28/19 Edgard Dasilva, PharmD [address] [place] [address] Pharmacist Pharmacy 12/23/24 documented as of this encounter
--- OUTSIDE RECORDS SUMMARY | 2025-03-28 21:11 | XMS_ITS | Clinical Summary ---
Author Organization [employer] Address [address] [facility] [address] [place] [address] Care Team Providers Care Abalone Sheller Name Role Phone Sindy Obrien MD Primary Care Provide r Edgard Dasilva PharmD Unavailable Allergies No known active allergies Medications ferrous sulfate 325 (65 Fe) MG tablet Take by mouth every 12 (twelve) hours. Active Alcohol Swabs 70 % pads Use to test blood sugar three times daily Active dapagliflozin (Farxiga) 10 MGIndications:T ype 2 diabetes mellitus with hyperglycemia, with long-term current use of insulin ([facility]) Take 1 tablet (10 mg) by mouth Once per day. 30 tablet 024 2024 Active glucose blood (FREESTYLE LITE) test stripIndication s:Type 2 diabetes mellitus with hyperglycemia, with long-term current use of insulin ([facility]) Use to test blood sugar three times daily 100 each 025 2025 Active Lancets miscIndications :Type 2 diabetes mellitus with hyperglycemia, with long-term current use of insulin ([facility]) Use to test blood sugar three times daily 100 each 025 Active fluticasone (Flonase) 50 MCG/ACT nasal spray Administer 1 spray into each nostril Once per day. 16 g Active sodium chloride ([place] Nasal [place]) 0.65 % nasal spray Administer 1 spray into each nostril if needed for congestion. 30 mL 025 2025 Active potassium citrate CR (Urocit-K-10) 10 mEq ER tablet Take 2 tablets by mouth 2 times daily. Active carvedilol (Coreg) 12.5 MG tabletIndicatio ns:HTN (hypertension), benign TAKE 1 TABLET BY MOUTH TWICE DAILY IN THE MORNING AND IN THE EVENING WITH FOOD 60 tablet 3 Active insulin lispro (HumaLOG KWIKPEN) 100 UNIT/ML injectionIndica tions:Type 2 diabetes mellitus with hyperglycemia, with long-term current use of insulin ([facility]) Inject 4 units subcutaneously before breakfast and 20 units before dinner. 15 mL Active insulin pen needle (BD Pen Needle Candie U/F) 32G x 4 mm miscIndications :Type 2 diabetes mellitus with hyperglycemia, without long-term current use of insulin ([facility]) Use with insulin three times daily as directed 100 each Active glucose 4 g chewable tabletIndicatio ns:Type 2 diabetes mellitus with hyperglycemia, with long-term current use of insulin ([facility]) Chew 4 tablets (16 g) if needed for low blood sugar. 30 tablet 025 2025 Active atorvastatin (Lipitor) 20 MG tabletIndicatio ns:HTN (hypertension), benign TAKE 1 TABLET BY MOUTH EVERY MORNING 90 tablet 1 Active olmesartan (BENIcar) 5 MG tabletIndicatio ns:Primary hypertension TAKE 1 TABLET BY MOUTH EVERY MORNING 90 tablet Active insulin degludec (Tresiba FlexTouch) 200 UNIT/ML injectionIndica tions:Type 2 diabetes mellitus with hyperglycemia, with long-term current use of insulin ([facility]) Inject 54 units subcutaneously once daily 9 mL Active Tirzepatide (Mounjaro) 5 MG/0.5ML solution auto-injectorIn dications:Type 2 diabetes mellitus with hyperglycemia, with long-term current use of insulin ([facility]) Inject 5 mg under the skin 1 (one) time per week. 2 mL Active oxyCODONE (Roxicodone) 5 MG immediate release tabletIndicatio ns:Chronic right shoulder pain Take 1 tablet (5 mg) by mouth every 8 (eight) hours if needed for severe pain for up to 28 days. Do not start before March 21, 2025. 84 tablet 025 2024 Active amLODIPine (Norvasc) 10 MG tabletIndicatio ns:HTN (hypertension), benign TAKE 1 TABLET BY MOUTH EVERY MORNING 90 tablet 1 Active cyanocobalamin (Vitamin B-12) 1000 MCG tabletIndicatio ns:Routine health maintenance TAKE 1 TABLET BY MOUTH EVERY MORNING 90 tablet 1 Active naloxone (Narcan) 4 mg/0.1 mL nasal sprayIndication s:Chronic right shoulder pain Administer 1 spray (4 mg) into affected nostril(s) if needed for opioid reversal. May repeat every 2-3 minutes if needed, alternating nostrils, until medical assistance becomes available. 2 each 3 024 2024 amLODIPine (Norvasc) 10 MG tabletIndicatio ns:HTN (hypertension), benign Take 1 tablet (10 mg) by mouth in the morning. 90 tablet 1 025 2024 Discontinued cyanocobalamin (Vitamin B-12) 1000 MCG tabletIndicatio ns:Routine health maintenance Take 1 tablet (1,000 mcg) by mouth in the morning. 90 tablet 1 025 2024 Discontinued insulin degludec (Tresiba FlexTouch) 200 UNIT/ML injectionIndica tions:Type 2 diabetes mellitus with hyperglycemia, with long-term current use of insulin (HCC) Inject 60 units subcutaneously once daily 9 mL 5 025 2024 Discontinued(R eorder (will not trigger notification to Pharmacy)) Tirzepatide (Mounjaro) 2.5 MG/0.5ML solution auto-injectorIn dications:Type 2 diabetes mellitus with hyperglycemia, with long-term current use of insulin (HCC) Inject 2.5 mg under the skin 1 (one) time per week. 2 mL 3 025 2024 Discontinued(D ose adjustment) oxyCODONE (Roxicodone) 5 MG immediate release tabletIndicatio ns:Chronic right shoulder pain Take 1 tablet (5 mg) by mouth every 8 (eight) hours if needed for severe pain for up to 28 days. 84 tablet 025 2024 Discontinued(R eorder (will not trigger notification to Pharmacy)) Active Problems Problem Noted Date Diagnosed Date Dizziness 02/09/2025 Assessment & Plan (02/09/2025 7:07 PM EDT): Advised to drink plenty of water avoid dehydration and change positions slowly I will order carotid ultrasound I will refer him to ENT to rule out vertigo Stage 3b chronic kidney disease ([facility]) 2024 Assessment & Plan (02/09/2025 7:06 PM EDT): To follow-up with nephrology Long-term current use of opiate analgesic 2024 [...] start him on oxycodone 5mg Q 8hrs [employer] will be initiated Plan is that after [...] pt in case needs to return to [facility] Type 2 diabetes mellitus wit h hyperglycemia, with long-term current use of insulin 10/23/2022 Assessment & Plan (02/09/2025 7:05 PM EDT): Diabetes is: not controlled - Lab Results Component Value Date HGBA1C 9.2 (A) 02/09/2025 HGBA1C 9.3 (A) 11/02/2024 HGBA1C 11.8 (H) 07/19/2024 - Lab Results Component Value Date MICROALBUR 18.0 11/02/2024 CREATININE 1.21 01/04/2025 -Changes: today I started patient on Mounjaro 2.5 mg weekly - Diabetic eye exam: Up-to-date -diabetic foot exam pending - Continue lifestyle - Follow up: 3 months Assessment & Plan (11/02/2024 1:55 PM EDT): [...] renal failure syndrome 05/14/2022 Carcinoma of stomach (CMS/HCC) 05/14/2022 Overview (06/12/2022): Patient seen by [facility] on 05/29/22: 10/2021 EGD showed normal [...] Follow-up in 6 months Assessment & Plan (02/09/2025 7:06 PM EDT): Continue to follow-up with oncology, tomorrow (02/10/2025) he is scheduled for surveillance endoscopy Assessment & Plan (10/23/2022 4:11 PM EDT): [...] Coreg 12.5 mg bid. I spoke with [facility], and pt. will bring Medbox [...] has MEDbox and has been ready to roll picker x last week ---advised pt to [...] Coreg 12.5 mg bid. I spoke with [facility], and pt. will bring Medbox in for change. Continue to keep daily BP and pulse log. RN BP and pulse visit scheduled. 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 Cervical radiculopathy 06/23/2018 Lung mass 01/18/2018 Obesity 01/18/2018 Streptococcal sore throat 01/18/2018 Hypertension 01/18/2018 Assessment & Plan (02/09/2025 7:02 PM EDT): I advised: - Aerobic exercise [...] consulting health care provider Assessment & Plan (11/02/2024 1:55 PM EDT): [...] Encounters Date Type Department Care Team Description 03/28/2025 2:00 PM EDT Clinical Support [facility] [address] [place] [phone] 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 RN Long-term current use of opiate analgesic (Primary Dx) 03/28/2025 Telephone [facility] [address] [place] [address] 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 RN UTOX Abnormal 03/28/2025 Travel 03/23/2025 Telephone [facility] [address] [place] [address] Sindy Obrien MD telephone call 03/21/2025 Refill [facility] [address] [place] [address] Sindy Obrien MD HTN (hypertension), benign; Routine health maintenance 03/15/2025 Refill [facility] [address] [place] [address] Sindy Obrien MD Chronic right shoulder pain 03/09/2025 Telephone [facility] [address] [place] [phone] Sindy Obrien MD telephone call 03/07/[address] [address] Sindy Obrien MD Dec recall 03/02/2025 Travel 02/23/2025 1:00 PM EDT Clinical Support [address] [address] 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 RN Long-term current use of opiate analgesic (Primary Dx) 02/23/[address] [address] 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 RN [employer] Agreement renewed today; Oxycodone count 02/23/2025 Travel 02/22/2025 Refill [facility] [address] [place] [phone] Sindy Obrien MD Primary hypertension 02/21/[address] [address] Sindy Obrien MD HTN (hypertension), benign; Depressive disorder 02/20/2025 Refill [facility] [address] [place] [phone] Sindy Obrien MD Chronic right shoulder pain 02/20/[address] [address] Sindy Obrien MD Chronic right shoulder pain 02/10/2025 Orders Only GENERIC EXTERNAL DATA DEPARTMENT Provider, Generic External Data 02/09/2025 1:45 PM EDT Office Visit [address] [address] Sindy Obrien MD Type 2 diabetes mellitus with hyperglycemia, with long-term current use of insulin (CMS/HCC) (Primary Dx); Primary hypertension; Dizziness; Stage 3b chronic kidney disease (CMS/HCC); Carcinoma of stomach (CMS/HCC); Dietary counseling; Exercise counseling 02/09/2025 Travel 02/08/[address] [place] [address] Sindy Obrien MD Chart Prep 02/02/2025 Orders Only [facility] [address] [place] [phone] Sindy Obrien MD 01/26/[address] [address] Sindy Obrien MD PCP OUT 01/20/[address] [address] Edgard Dasilva, PharmD 01/19/2025 1:30 PM EDT Clinical Support [address] [address] 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 RN Long-term current use of opiate analgesic (Primary Dx) 01/19/2025 Refill [facility] [address] [place] [phone] 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 RN Chronic right shoulder pain 01/19/2025 Travel 01/13/[address] [address] Edgard Dasilva, PharmD 01/06/[address] [address] Edgard Dasilva, PharmD 01/04/2025 Orders Only GENERIC EXTERNAL DATA DEPARTMENT Provider, Generic External Data 01/03/[address] [address] Sindy Obrien MD Chronic right shoulder pain 12/30/[address] [address] Edgard Dasilva, PharmD from Last 3 Months Immunizations Immunization Administration [...] Sign Reading Time Taken Comments Blood Pressure 126/58 03/02/2025 10:22 AM EDT Pulse 96 03/02/2025 10:22 AM EDT Temperature 36.4 C (97.6 F) 02/09/2025 1:39 PM EDT Respiratory Rate 16 02/09/2025 1:39 PM EDT Oxygen Saturation 96% 02/09/2025 1:39 PM EDT Inhaled Oxygen Concentration - - Weight 80.5 kg (177 lb 6.4 oz) 02/09/2025 1:39 P M EDT Height 160 cm (5' 3 ) 02/09/2025 1:39 PM EDT Body Mass Index 31.42 02/09/2025 1:39 PM EDT Plan of Treatment Upcoming Encounters Date Type Department Care Team (Late st Contact Info) Description 03/31/2025 11:00 AM EDT Medication Management [address] [address] Edgard Dasilva, PharmD [address] [place] [phone] 05/01/2025 1:00 PM EST Clinical Support [address] [address] 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 RN 05/17/2025 2:45 PM EST Office Visit [address] [address] Sindy Obrien MD [address] [place] [phone] Health Maintenance Due Date Last Done Comments CT Colonography 1950 FIT DNA/Cologuard 1950 FIT 1950 Sigmoidoscopy 1950 Diabetes: Foot Exam 1960 Zoster Vaccines (1 of 2) 2000 RSV Patients and Patients Aged 60 years or older (1 - Risk 60-74 years 1-dose series) 2010 FOBT 06/28/2020 06/28/2019 Pneumococcal Vaccine: 50+ Years (3 of 3 - PCV20 or PCV21) 09/24/2022 09/24/2017, 04/09/2012 COVID-19 Vaccine (4 - 2024- season) 2025 05/28/2021, 10/25/2020, 09/27/2020 Influenza Vaccine (#1) 2025 2, 04/11/2011, 07/09/2007 Diabetes: Hemoglobin A1C 05/11/2025 025, 11/02/2024, 07/19/2024, Additional history exists Alcohol/Substance Use Screening 06/06/2025 06/06/2024 Depression Screening 06/06/2025 06/06/2024, 06/06/20 24 Eye Exam 08/17/2025 08/18/2023, 08/06, 08/18/2023, Additional history exists SDOH Screening 10/21/2025 10/21/2024 Lipid Panel 11/02/2025 11/02/2024, 07/2 10/2021, 06/05/2020 Colonoscopy 01/23/2026 01/23/2023, 05/15/2016 Colorectal Cancer Screening 01/23/2026 Tobacco Screening 02/09/2026 02/09/2025 DTaP/Tdap/Td Vaccines (2 - Td or Tdap) 09/25/2027 09/24/2017, 05/09/2009 Hepatitis C Screening Completed 06/10/2024 HIB Vaccines [...] 2:01 PM EDT) No Caroline Neri PharmD Procedures Procedure Name Priority Date/Time Associated Diagnosis Comments POCT VELASQUEZ-14 URINE DRUG SCREEN Routine 03/28/2025 2:05 PM EDT Long-term current use of opiate analgesic METHADONE SCREEN, URINE Routine 03/28/2025 1:45 PM EDT Long-term current use of opiate analgesic POCT VELASQUEZ-14 URINE DRUG SCREEN Routine 02/23/2025 1:21 PM EDT Long-term current use of opiate analgesic HEMATOXYLIN AND EOSIN STAIN Routine 02/10/2025 2:51 PM EDT GLUCOSE, WHOLE BLOOD Routine 02/10/2025 1:23 PM EDT POCT GLYCATED HEMOGLOBIN, TOTAL Routine 02/09/2025 2:01 PM EDT Type 2 diabetes mellitus with hyperglycemia, with long-term current use of insulin ([facility]) POCT GLUCOSE Routine 02/09/2025 2:01 PM EDT Type 2 diabetes mellitus with hyperglycemia, with long-term current use of insulin ([facility]) POCT VELASQUEZ-14 URINE DRUG SCREEN Routine 01/19/2025 1:18 PM EDT Long-term current use of opiate analgesic PROTEIN CREATININE RATIO, URINE Routine 01/04/2025 9:50 AM EDT CALCIUM Routine 01/04/2025 9:50 AM EDT CREATININE, SERUM Routine 01/04/2025 9:5 0 AM EDT UREA NITROGEN (BUN) Routine 01/04/2025 9 :50 AM EDT ELECTROLYTE PANEL Routine 01/04/2025 9:5 0 AM EDT LIPID PANEL, STANDARD Routine 11/02/2024 11:56 AM EDT Type 2 diabetes mellitus with hyperglycemia, with long-term current use of insulin ([facility]) HEPATITIS PANEL, GENERAL Routine 06/10/2024 11:29 AM EST Vestibular disorder, unspecified laterality HM COLONOSCOPY Routine 01/23/2023 ZZZ HISTORICAL OCCULT BLOOD STOOL X3 Routine 06/28/2019 12:00 AM EST from Last 3 Months or Most Recently Relevant to Health Maintenance Results * (ABNORMAL) POCT VELASQUEZ-14 Urine Drug Screen (03/28/2025 2:05 PM EDT) Only the most recent of3 [...] Negative ng/mL Oxycodone Screen, Urine Positive(A) Negative Comment:YARD [employer] pt, on oxycodone Phencyclidine (PCP), Urine Negative Negative Propoxyphene, Urine Negative Negative Fentanyl, Urine Negative Negative Urine Urine specimen obtained by clean catch procedure / Unknown 03/28/2025 2:05 PM EDT Narrative 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 RN - 03/28/2025 2:05 PM EDT UTOX cup Lot#[id number] Exp. 03/14/26 Internal Pass Control us Sindy Carlson MD POINT OF CARE TEST EN TER/EDIT ORDERABLES Final Result * Drug Monitoring, Methadone Metabolite, Screen, Urine (03/28/2025 1:45 PM EDT) Methadone Screen, Urine Not Detected Not Detect ng/mL [facility] Comment:Methadone cut-off is 300 ng/mL.Positive results are unconfirmed and should not be used fornon-medical purposes. Urine (Urine, Random) 03/28/2025 1:45 PM EDT 03/28/2025 4:48 PM EDT us Sindy Carlson MD LAB URINE ORDERABLES Final Result [facility] [address] [place] [address] [phone] * Hematoxylin and Eosin Stain (02/10/2025 2:51 PM EDT) 02/10/2025 2:51 PM EDT 02/13/2025 7:08 AM EDT [facility] - 02/14/2025 3:30 PM EDT ----- ------- Name: Frantz Fink Age/Sex: 74/M : 1950 Unit#: [id number] Attend Dr: Trenton Mueller MD Re02/10/25 Status: [facility] Location: HO.SSS Disch: ----- ------- SPEC : [id number] RECD: 02/13/25 STATUS: CHIOMA HENDRIX NUM: [id number] MAKENZIE: 02/10/25-[address] [facility] [address]: Trenton Mueller MD ENTERED: 02/13/25 SP TYPE: Surgical OTHR DR: Sindy Obrien MD ORDERED: HE Stain/12, Gross Micro L4/4, IHC, Special st. 2/, H. pylori, AB/PAS/4 Diagnosis A. Small bowel, biopsy: Small bowel mucosa within normal limits; preserved villous architecture and no increased intraepithelial lymphocytes seen. B. Small bowel, anastomotic ulcer, biopsy: Active enteritis with ulcer and reactive epithelial changes in keeping with anastomotic site; negative for Helicobacter pylori and dysplasia. C. Stomach, anastomosis, biopsy: Gastric body mucosa with mild chronic active inflammation and intestinal metaplasia; negative for Helicobacter pylori and dysplasia. D. Stomach, body, biopsy: Gastric body mucosa within normal limits; negative for Helicobacter pylori, intestinal metaplasia and dysplasia. Clinical History Pre-Op Dx: Malignant neoplasm of stomach, unspecified Post-Op Dx: Anastomotic ulcer, gastrectomy changes Microscopic Description A-D. Microscopic sections examined. Part C shows intestinal metaplasia highlighted by AB/PAS while no metaplastic changes are seen, supported by AB/PAS stains in parts A, B and D; no Helicobacter organisms are seen, supported by H. pylori immunostain (B). Material Received A. Small bowel bx's, r/o celiac disease B. Anastomotic ulcer bx's C. Anastomosis bx's D. Gastric body bx's Gross Description Received in four parts. Part A: Received in formalin labeled small bowel bx's are two carpenter velvety rectangular tissue fragments each measuring 0.35 cm, submitted in toto in a cassette labeled A. Part B: Received in formalin labeled anastomotic ulcer bx's are multiple charles-carpneter irregular tissue fragments ranging from 0.1-0.25 cm, submitted in toto in a cassette labeled B. CONTINUED ON NEXT PAGE ----- ------- Name: Frantz Fink Age/Sex: 74/M : 1950 Unit#: [id number] Attend Dr: Trenton Mueller MD Re02/10/25 Status: [facility] Location: [facility] Disch: ----- ------- SPEC : [id number] RECD: 02/13/25 STATUS: CHIOMA HENDRIX NUM: [id number] MAKENZIE: 02/10/25-[address] [facility] [address]: Trenton Mueller MD ENTERED: 02/13/25 SP TYPE: Surgical OTHR DR: Sindy Obrien MD ORDERED: HE Stain/12, Gross Micro L4/4, IHC, Special st. 2/, H. pylori, AB/PAS/4 Gross Description (Continued) Part C: Received in formalin labeled anastomosis bx's are four charles-carpenter irregular and rectangular tissue fragments ranging from 0.25-0.35 cm, submitted in toto in a cassette labeled C. Part D: Received in formalin labeled gastric body bx's are four carpenter irregular tissue fragments ranging from 0.25-0.3 cm, submitted in toto in a cassette labeled D. CEDS Special stains ordered and performed: AB/PAS on A-D; immunostain for H. pylori on B. IHC S/NG Disclaimer NOTE: Unless otherwise stated, all tissue is formalin-fixed and paraffin-embedded. Some or all of the immunohistochemical tests reported herein may have been developed and their performance characteristics determined by [facility]. They have not been cleared or approved by the U.S. Food and Drug Administration (FDA). However, the FDA has determined that such clearance or approval is not necessary. This laboratory is certified under the Clinical Laboratory Improvement Amendments of 1988 (CLIA) as qualified to perform high complexity clinical laboratory testing. Copies To: Sindy Obrien MD [address] [phone] Trenton Mueller MD [facility] [address] [place] [address] [phone] ----- ------- Signed (signature on file) Melissa Escobar MD 02/14/25 1530 ----- ------- END OF REPORT us Generic External Data Provider LAB BLOOD ORDERAB LES Final Result Performing Organization Address [facility]/ZIP Co de Phone Number [facility] [address] [place] [phone] * (ABNORMAL) Glucose, Whole Blood (02/10/2025 1:23 PM EDT) Pathologist [facility] Glucose, Whole Blood 202(H) 60 - 115 mg/dL [facility] Comment:METER #: [id number] 02/10/2025 1:23 PM EDT 02/10/2025 1:37 PM EDT us Generic External Data Provider LAB BLOOD ORDERAB LES Final Result Performing Organization Address [facility]/ZIP Co de Phone Number [facility] [address] [place] [phone] * (ABNORMAL) POCT Hgb A1c (02/09/2025 2:01 PM EDT) Pathologist [facility] Hemoglobin A1C 9.2(A) 4.0 - 5.7 % QC Media Lot # [id number] Lot# Expiration Date [id number] Blood 02/09/2025 2:01 PM EDT Sindy Carlson MD POINT OF CARE TEST EN TER/EDIT ORDERABLES Final Result * (ABNORMAL) POCT Glucose (02/09/2025 2:01 PM EDT) Glucose Blood, POC 328(A) 60 - 200 mg/dL QC Media Lot # [id number] Lot# Expiration Date Blood Capillary blood specimen / Unknown 02/09/2025 2:01 PM EDT us Sindy Carlson MD POINT OF CARE TEST EN TER/EDIT ORDERABLES Final Result * Protein Creatinine Ratio, Urine (01/04/2025 9:50 AM EDT) Creatinine, Urine 60.86 mg/dL [facility] Protein, Total, Random Urine <7 <12 mg/dL [facility] Protein/Creatin ine Ratio, Ur TNP <0.2 [facility] Comment:Unable to calculate urine protein creatinine ratio due tolow creatinine or protein result. 01/04/2025 9:50 AM EDT 01/04/2025 12:58 PM EDT us Generic External Data Provider LAB URINE ORDERAB LES Final Result [facility] [address] [place] [phone] * Creatinine, Serum (01/04/2025 9:50 AM EDT) Creatinine, Serum 1.21 0.5 - 1.4 mg/dL [facility] Estimated Glomerular Filt Rate 59 [facility] Comment:Chronic Kidney Disea se: Estimated GFR < 60 mL/min/1.04m2Cynxnb Kidney Disease: Estimated GFR < 15 mL/min/1.73m2 01/04/2025 9:50 AM EDT 01/04/2025 12:58 PM EDT us Generic External Data Provider LAB BLOOD ORDERAB LES Final Result [facility] [address] [place] [phone] * (ABNORMAL) BUN (Blood Urea Nitrogen) (01/04/2025 9:50 AM EDT) Urea Nitrogen (BUN) 17(H) 9 - 16 mg/dL [facility] 01/04/2025 9:50 AM EDT 01/04/2025 12:58 PM EDT us Generic External Data Provider LAB BLOOD ORDERAB LES Final Result Performing Organization Address [facility]/ZIP Co de Phone Number [facility] [address] [place] [phone] * Calcium (01/04/2025 9:50 AM EDT) Calcium 8.8 8.4 - 10.2 mg/dL [facility] 01/04/2025 9:50 AM EDT 01/04/2025 12:58 PM EDT Generic External Data Provider LAB BLOOD ORDERAB LES Final Result Performing Organization Address [facility] Co de Phone Number [facility] [address] [place] [phone] * (ABNORMAL) Electrolyte Panel (01/04/2025 9:50 AM EDT) Sodium 140 135 - 145 mmol/L [facility] Potassium 4.4 3.3 - 5.1 mmol/L [facility] Chloride 106 96 - 108 mmol/L [facility] Carbon Dioxide 27 22 - 29 mmol/L [facility] Anion Gap 11(L) 12 - 20 [facility] 01/04/2025 9:50 AM EDT 01/04/2025 12:58 PM EDT us Generic External Data Provider LAB BLOOD ORDERAB LES Final Result Performing Organization Address [facility]/ZIP Co de Phone Number [facility] [address] [place] [phone] * (ABNORMAL) Lipid Panel, Standard (11/02/2024 11:56 AM EDT) Triglycerides 134 <150 mg/dL [facility] Comment:Desirable Triglyceri de: less than 150 mg/dLBorderline High Triglyceride 150-199 mg/dLHigh Triglyceride: 200-499 mg/dLVery High Triglyceride: greater than or equal to 5OO mg/dL Cholesterol 121 <200 mg/dL [facility] Comment:Desirable Cholestero l: less than 200 mg/dLBorderline High Cholesterol: 200-239 mg/dLHigh Cholesterol: greater than 239 mg/dL LDL Cholesterol Calculated 66 <100 mg/dL [facility] Comment:Desirable LDL: less than 100 mg/dLNear Optimal/Above Optimal LDL: 110- 129 mg/dLBorderline High LDL: 130-159 mg/dLHigh LDL: 160-189 mg/dLVery High LDL: greater than or equal to 190 mg/dL HDL Cholesterol 29(L) >40 mg/dL [facility] Comment:Desirable HDL: great er than 40 mg/dL Note: This HDL assay may give artificially low results in patients with liver disease. Blood Venous blood specimen / Unknown 11/02/2024 11:56 AM EDT 11/02/2024 1:15 PM EDT Sindy Carlson MD LAB BLOOD ORDERABLES Final Result Performing Organization Address City/[facility]/ZIP Co de Phone Number [facility] [address] [place] [address] [phone] * Hepatitis Panel, General (06/10/2024 11:29 AM EST) Hepatitis A IgM Nonreactive Nonreactive [facility] Comment:IgM antibodies to MCCARTHY V not detected; does not exclude earlyacute or recovered HAV infection. ~Hepatitis B Surface Antibody NONREACTIVE Nonreactive [facility] Comment:Nonreactive: < 8.00 mIU/mL Hepatitis B Core Antibody Nonreactive Nonreactive [facility] Hepatitis C Antibody Nonreactive Nonreactive [facility] Comment:Antibodies to HCV no t detected; does not exclude early acuteHCV infection. Hepatitis B Surface Ag Negative Negative [facility] Blood Venous blood specimen / Unknown 06/10/2024 11:29 AM EST 06/10/2024 1:07 PM EST us Sindy Carlson MD LAB BLOOD ORDERABLES Final Result [facility] [address] [place] [address] [phone] * Colonoscopy (01/23/2023) us Historical Provider MD HEALTH MAINTENANCE Final Result * (ABNORMAL) OCCULT BLOOD STOOL X3 (06/28/2019 12:00 AM EST) OCCULT BLOOD STOOL-1 NEG NEG [facility] OCCULT BLOOD STOOL-1 DATE 06/25/19 [facility] OCCULT BLOOD STOOL-2 POS(AA) NEG [facility] OCCULT BLOOD STOOL-2 DATE 06/26/19 [facility] OCCULT BLOOD STOOL-3 POS(AA) NEG [facility] OCCULT BLOOD STOOL-3 DATE 06/28/19 [facility] 06/28/2019 us Sindy Carlson MD HISTORICAL/NON ORDERA BLE LABS Final Result [facility] [address] from Last 3 Months or Most Recently Relevant to Health Maintenance Insurance [employer] (HMO D-SNP) KATHERINE EDWARDS [id number] Care Teams Abalone Sheller Relationship Specialty Start Date End Date Sindy Obrien MD [address] [place] [address] PCP - General Family Medicine 03/28/19 Edgard Dasilva, PharmD [address] [place] [address] Pharmacist Pharmacy 12/23/24
--- OUTSIDE RECORDS SUMMARY | 2025-03-28 21:11 | XMS_ITS | Encounter Summary ---
Author Organization [employer] Address 75 [facility] 7t [place] [address] Care Team Providers Care Business Division Chair Name Role Phone Sindy Obrien MD Primary Care Provide r Edgard Dasilva PharmD Unavailable [phone] Reason for Visit * Reason Comments Med Refill Encounter Details Date Type Department Care Team ([facility] st Contact Info) Description 11/30/[address] [facility] [address] [place], [place] [phone] Sindy Obrien MD 230 [place] [address] Chronic right shoulder pain Social History Tobacco [...] Description 03/31/2025 11:00 AM EDT Medication Management [address] [address] Edgard Dasilva, AtiyaD [address] [place] [address] 05/01/2025 1:00 PM EST Clinical Support [address] [address] 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 RN 05/17/2025 2:45 PM EST Office Visit [address] [address] Sindy Obrien MD [address] [place] [address] documented as of this encounter Goals Goal [...] documented as of this encounter Care Teams Business Division Chair Relationship Specialty Start Date End Date Sindy Obrien MD [address] [place] [address] PCP - General Family Medicine 03/28/19 Edgard Dasilva, AtiyaD [address] [place] [address] Pharmacist Pharmacy 12/23/24 documented as of this encounter
== END 2025-03-28 16:49 | disposition home or self-care (01) ==
LOC: HO.LNP 16:48
PROVIDERS: Visit Provider Internal Medicine
DX: Z79.891 Long term (current) use of opiate analgesic (principal)
CPT/HCPCS: 80307

== ENCOUNTER 2025-05-09 07:14 | Outpatient (AMB) | payer OTHER, SELFPAY ==
--- OUTSIDE RECORDS SUMMARY | 2025-05-09 07:17 | XMS_ITS | Encounter Summary ---
Author Organization [employer] Address [address] [facility] [address] 7t [place] [address] Care Team Providers Care Gas Line Repairer Name Role Phone Sindy Obrien MD Primary Care Provide r Edgard Dasilva PharmD Unavailable [phone] Encounter Details Date Type Department Care Team ([facility] st Contact Info) Description 02/02/2025 Orders Only [facility] [address] [place] [address] Sindy Obrien MD [address] [place], [place] [phone] Social History Tobacco Use Types Packs/Day Years [...] Care Team (Late st Contact Info) Description 05/17/2025 2:45 PM EST Office Visit [address] [address] Sindy Obrien MD [address] [place] [address] 06/14/2025 2:00 PM EST Clinical Support [address] [address] 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 RN 07/07/2025 10:30 AM EST Medication Management [address] [address] Edgard Dasilva, AtiyaD [address] [place] [address] documented as of this encounter Goals Goal Patient Goal Type Associated Problems Recent Progress Patient-Stated? Author Hemoglobin A1c < 8 Result Component 9.2(02/09/2025 2:01 PM EDT) Caroline Rose, AtiyaD documented as of this encounter Visit Diagnoses Not on filedocumented in this encounter Additional Health Concerns Assessment Noted Time PHQ-9 Depression Total Score: 0 06/06/20 24 1:16 PM EST documented as of this encounter Care Teams Gas Line Repairer Relationship Specialty Start Date End Date Sindy Obrien MD [address] [place], [place] [phone] PCP - General Family Medicine 03/28/19 Edgard Dasilva, AtiyaD [address] [place], [place] [phone] Pharmacist Pharmacy 12/23/24 documented as of this encounter
--- OUTSIDE RECORDS SUMMARY | 2025-05-09 07:17 | XMS_ITS | Encounter Summary ---
Author Organization [employer] Address 75 [facility] 7t [place] [address] Care Team Providers Care Animal Groomer Name Role Phone Sindy Obrien MD Primary Care Provide r Edgard Dasilva PharmD Unavailable [phone] Reason for Visit * Reason Onset Date Comments FYI 11/18/2023 Encounter Details Date Type Department Care Team ([facility] st Contact Info) Description 11/18/2023 Telephone [facility] 230 [place] [address] Sindy Obrien MD [address] [place], [place] [phone] FYI Social History Tobacco Use Types Packs/Day [...] - 11/18/2023 10:58 AM EDT Tc from [facility] with Dr Leslie (orthopedics) calling to inform they are going to be prescribing 2 weeks of Oxy 10MG after surgery. documented in this encounter Plan of Treatment Upcoming Encounters Date Type Department Care Team (Late st Contact Info) Description 05/17/2025 2:45 PM EST Office Visit [address] [address] Sindy Obrien MD [address] [place] [address] 06/14/2025 2:00 PM EST Clinical Support [address] [address] 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 RN 07/07/2025 10:30 AM EST Medication Management [address] [address] Edgard Dasilva PharmD [address] [place] [address] documented as of this encounter Goals Goal [...] documented as of this encounter Care Teams Animal Groomer Relationship Specialty Start Date End Date Sindy Obrien MD [address] [place] [address] PCP - General Family Medicine 03/28/19 Edgard Dasilva, AtiyaD [address] [place] [address] Pharmacist Pharmacy 12/23/24 documented as of this encounter
--- OUTSIDE RECORDS SUMMARY | 2025-05-09 07:18 | XMS_ITS | Encounter Summary ---
Author Organization [employer] Address [address] [facility] [address] 7t [place] [address] Care Team Providers Care Job Developer Name Role Phone Sindy Obrien MD Primary Care Provide r Edgard Dasilva PharmD Unavailable [phone] Reason for Visit * Reason Comments Med Refill Encounter Details Date Type Department Care Team ([facility] st Contact Info) Description 04/26/2023 Refill [facility] 230 [place], [place] [phone] Sindy Obrien MD 230 [place] [address] HTN (hypertension), benign Social History Tobacco Use [...] Description 05/17/2025 2:45 PM EST Office Visit [address] [address] Sindy Obrien MD [address] [place] [address] 06/14/2025 2:00 PM EST Clinical Support [address] [address] 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 RN 07/07/2025 10:30 AM EST Medication Management [address] [address] Edgard Dasilva PharmD [address] [place] [address] documented as of this encounter Visit Diagnoses Diagnosis HTN (hypertension), benign Essential hypertension, benign documented in this encounter Additional Health Concerns Assessment Noted Time PHQ-9 Depression Total Score: 0 10/24/19 23 3:05 PM EDT documented as of this encounter Care Teams Job Developer Relationship Specialty Start Date End Date Sindy Obrien MD [address] [place] [address] PCP - General Family Medicine 03/28/19 Edgard Dasilva, PharmD [facility] [place] [address] Pharmacist Pharmacy 12/23/24 documented as of this encounter
--- OUTSIDE RECORDS SUMMARY | 2025-05-09 07:18 | XMS_ITS | Encounter Summary ---
Author Organization [employer] Address 75 [facility] 7t [place] [address] Care Team Providers Care Loan Operations Specialist Name Role Phone Sindy Obrien MD Primary Care Provide r Edgard Dasilva PharmD Unavailable [phone] Reason for Visit * Reason Comments Med Refill Encounter Details Date Type Department Care Team ([facility] Contact Info) Description 10/29/2022 Refill [facility]INE 230 [place] [address] [facility] 230 [place] [address] Depressive disorder Social History Tobacco Use Types [...] Upcoming Encounters Date Type Department Care Team ([facility] Contact Info) Description 05/17/2025 2:45 PM EST Office Visit [address] [address] Sindy Obrien MD [address] [place] [address] 06/14/2025 2:00 PM EST Clinical Support [address] [address] 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, MANSI 07/07/2025 10:30 AM EST Medication Management [address] [address] Edgard Dasilva, PharmD [address] [place] [address] documented as of this encounter Visit Diagnoses Diagnosis Depressive disorder Depressive disorder, not elsewhere classified documented in this encounter Additional Health Concerns Assessment Noted Time PHQ-9 Depression Total Score: 0 10/24/19 23 3:05 PM EDT documented as of this encounter Care Teams Loan Operations Specialist Relationship Specialty Start Date End Date Sindy Obrien MD [address] [place] [address] [phone] PCP - General Family Medicine 03/28/19 Edgard Dasilva, PharmD [address] [place] [address] [phone] Pharmacist Pharmacy 12/23/24 documented as of this encounter
--- OUTSIDE RECORDS SUMMARY | 2025-05-09 07:18 | XMS_ITS | Encounter Summary ---
Author Organization [employer] Address 75 [facility] 7t [place] [address] Care Team Providers Care Horser Up Name Role Phone Sindy Obrien MD Primary Care Provide r Edgard Dasilva PharmD Unavailable [phone] Reason for Visit * Reason Comments Pre-visit Planning SDOH screening compl eted on 10/21/2024 Encounter Details Date Type Department Care Team (Late st Contact Info) Description 05/08/2025 Patient Outreach [facility] [address] [place] [address] Sindy Obrien MD [address] [place], [place] [phone] Pre-visit Planning (SDOH screening completed on 10/21/2024) Social History Tobacco Use Types Packs/Day Years [...] as of this encounter Progress Notes * Mimi Khalil - 05/08/2025 9:28 AM EST CC Mimi placed successful outbound call to patient for pre-visit planning. Patient name and confirmed. Patient confirms appt date and time, and has transportation. Biggest concern for appointment at this time is none Patient advised to bring to appointment a photo id and insurance card. Appropriate screenings completed in anticipation of appointment. documented in this encounter Plan of Treatment Upcoming Encounters Date Type Department Care Team (Late st Contact Info) Description 05/17/2025 2:45 PM EST Office Visit [facility] [address] [place] [address] Sindy Obrien MD [address] [place] [address] 06/14/2025 2:00 PM EST Clinical Support [facility] [address] [place] [address] 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 RN 07/07/2025 10:30 AM EST Medication Management [facility] [address] [place] [address] Edgard Dasilva PharmD [address] [place] [address] documented as of this encounter Goals Goal Patient Goal Type Associated Problems Recent Progress Patient-Stated? Author Hemoglobin A1c < 8 Result Component 9.2( 2:01 PM EDT) No Caroline Neri PharmD Help patients manage their type 2 diabetes Care Plan Help patients manage their type 2 diabetes No 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 RN Weekly blood pressure task Care Plan Weekly blood pressure task No 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 RN Help patients manage their type 2 diabetes Care Plan Help patients manage their type 2 diabetes No 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 RN Patient has chronic kidney disease Care Plan Patient has chronic kidney disease No 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 RN Weekly blood pressure task Care Plan Weekly blood pressure task No 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 RN Patient has chronic kidney disease Care Plan Patient has chronic kidney disease Leah Monsivais RN Weekly blood pressure task Care Plan Weekly blood pressure task No Mimi Khalil Weekly blood pressure task Care Plan Weekly blood pressure task No Mimi Khalil Patient has chronic kidney disease Care Plan Patient has chronic kidney disease No Mimi Khalil Patient has chronic kidney disease Care Plan Patient has chronic kidney disease No Mimi Khalil documented as of this encounter Visit Diagnoses Not on filedocumented in this encounter Additional Health Concerns Active Problems Noted Date Diagnosed Date Help patients manage their type 2 diabetes 04/20 Weekly blood pressure task 04/20/2025 Help patients manage their type 2 diabetes 04/20 Patient has chronic kidney disease 04/20/2025 Weekly blood pressure task 04/20/2025 Patient has chronic kidney disease 04/20/2025 Weekly blood pressure task 05/08/2025 Weekly blood pressure task 05/08/2025 Patient has chronic kidney disease 05/08/2025 Patient has chronic kidney disease 05/08/2025 Assessment Noted Time PHQ-9 Depression Total Score: 0 06/06/20 24 1:16 PM EST documented as of this encounter Care Teams Horser Up Relationship Specialty Start Date End Date Sindy Obrien MD [address] [place] [address] PCP - General Family Medicine 03/28/19 Edgard Dasilva, PharmD [address] [place] [address] [place] [address] Pharmacist Pharmacy 12/23/24 documented as of this encounter
--- OUTSIDE RECORDS SUMMARY | 2025-05-09 07:18 | XMS_ITS | Encounter Summary ---
Author Organization [employer] Address [address] [facility] [facility] [address] 7t [place] [address] Care Team Providers Care Department Of Sociology Chair Name Role Phone Sindy Obrien MD Primary Care Provide r Edgard Dasilva PharmD Unavailable [phone] Reason for Visit * Reason Comments Med Refill Encounter Details Date Type Department Care Team (Late st Contact Info) Description 09/03/2023 Refill [facility]INE 230 [place], [place] [phone] Sindy Obrien MD 230 [place] [address] Chronic right shoulder pain Social History Tobacco [...] Description 05/17/2025 2:45 PM EST Office Visit [facility] [address] [place] [address] Sindy Obrien MD [address] [place] [address] 06/14/2025 2:00 PM EST Clinical Support [address] [address] 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 RN 07/07/2025 10:30 AM EST Medication Management [address] [address] Edgard Dasilva PharmD [address] [place] [address] documented as of this encounter Visit Diagnoses Diagnosis Chronic right shoulder pain Pain in joint, shoulder region documented in this encounter Additional Health Concerns Assessment Noted Time PHQ-9 Depression Total Score: 0 10/24/19 23 3:05 PM EDT documented as of this encounter Care Teams Department Of Sociology Chair Relationship Specialty Start Date End Date Sindy Obrien MD [address] [place] [address] PCP - General Family Medicine 03/28/19 Edgard Dasilva, Nithya [address] [place] [address] Pharmacist Pharmacy 12/23/24 documented as of this encounter
--- OUTSIDE RECORDS SUMMARY | 2025-05-09 07:18 | XMS_ITS | Encounter Summary ---
Author Organization [employer] [facility] Address 75 [facility] 7t [place] [address] Care Team Providers Care Construction Recruiter Name Role Phone Sindy Obrien MD Primary Care Provide r Edgard Dasilva PharmD Unavailable [phone] Encounter Details Date Type Department Care Team (Late st Contact Info) Description 02/13/2023 Orders Only [facility] MEDICINE [address] [place] [address] ProviderOren MD Social History Tobacco Use Types [...] Description 05/17/2025 2:45 PM EST Office Visit [address] [address] Sindy Obrien MD [address] [place] [address] 06/14/2025 2:00 PM EST Clinical Support [facility] [address] [place] [address] 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 RN 07/07/2025 10:30 AM EST Medication Management [facility] MEDICINE [address] [place] [address] Edgard Dasilva, PharmD [address] [place] [address] documented as of this encounter Procedures Procedure [...] documented as of this encounter Care Teams Construction Recruiter Relationship Specialty Start Date End Date Sindy Obrien MD [address] [place] [address] PCP - General Family Medicine 03/28/19 Edgard Dasilva, PharmRory [address] [place] [address] Pharmacist Pharmacy 12/23/24 documented as of this encounter
--- OUTSIDE RECORDS SUMMARY | 2025-05-09 07:18 | XMS_ITS | Encounter Summary ---
Author Organization [employer] Address 75 [facility] 7t [place] [address] Care Team Providers Care Casino Porter Name Role Phone Sindy Obrien MD Primary Care Provide r Edgard Dasilva PharmD Unavailable [phone] Reason for Visit * Reason Comments Med Refill Encounter Details Date Type Department Care Team ([facility] st Contact Info) Description 11/30/2024 Refill [facility] MEDICINE 230 [place], [place] [phone] Sindy Obrien MD 230 [place] [address] Chronic right shoulder pain Social History Tobacco [...] Description 05/17/2025 2:45 PM EST Office Visit [address] [address] Sindy Obrien MD [address] [place] [address] 06/14/2025 2:00 PM EST Clinical Support [address] [address] 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 RN 07/07/2025 10:30 AM EST Medication Management [address] [address] Edgard Dasilva PharmD [address] [place] [address] documented as of this encounter Goals Goal [...] documented as of this encounter Care Teams Casino Porter Relationship Specialty Start Date End Date Sindy Obrien MD 230 [place] [address] PCP - General Family Medicine 03/28/19 Edgard Dasilva, AtiyaD 230 [place] [address] Pharmacist Pharmacy 12/23/24 documented as of this encounter
--- OUTSIDE RECORDS SUMMARY | 2025-05-09 07:18 | XMS_ITS | Encounter Summary ---
Author Organization [employer] Address 75 [facility] [address] 7t [place] [address] Care Team Providers Care Dock Operator Name Role Phone Sindy Obrien MD Primary Care Provide r Edgard Dasilva PharmD Unavailable [phone] Reason for Visit * Reason Comments Med Refill Encounter Details Date Type Department Care Team ([facility] st Contact Info) Description 06/02/[address] [facility] MED[facility]INE 230 [place], [place] [phone] Sindy Obrien MD 230 [place] [address] Vitamin D deficiency, unspecified Social History Tobacco [...] 05/17/2025 2:45 PM EST Office Visit [address] [address] Sindy Obrien MD [address] [place] [address] 06/14/2025 2:00 PM EST Clinical Support [address] [address] 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 RN 07/07/2025 10:30 AM EST Medication Management [address] [address] Edgrad Dasilva PharmD [address] [place] [address] documented as of this encounter Visit Diagnoses Diagnosis Vitamin D deficiency, unspecified documented in this encounter Additional Health Concerns Assessment Noted Time PHQ-9 Depression Total Score: 0 10/24/19 23 3:05 PM EDT documented as of this encounter Care Teams Dock Operator Relationship Specialty Start Date End Date Sindy Obrien MD [address] [place] [address] PCP - General Family Medicine 03/28/19 Edgard Dasilva, AtiyaD [address] [place] [address] Pharmacist Pharmacy 12/23/24 documented as of this encounter
--- OUTSIDE RECORDS SUMMARY | 2025-05-09 07:18 | XMS_ITS | Encounter Summary ---
Author Organization [employer] Address 75 [facility] 7t [place] [address] Care Team Providers Care Railways Assistant Name Role Phone Sindy Obrien MD Primary Care Provide r Edgard Dasilva PharmD Unavailable Encounter Details Date Type Department Care Team (Late st Contact Info) Description 05/20/2022 Orders Only [facility] MEDICINE [address] [place] [address] Bhakti Paredes DO 230 [place] [address] Hypertension, unspecified type (Primary Dx) Social History [...] Description 05/17/2025 2:45 PM EST Office Visit [facility] [address] [place] [address] Sindy Obrien MD 230 [place], [place] [phone] 06/14/2025 2:00 PM EST Clinical Support [address] [phone] 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 RN 07/07/2025 10:30 AM EST Medication Management [address] [phone] Edgard Dasilva, AtiyaD [address] [place] [address] [phone] documented as of this encounter Procedures Procedure Name Priority Date/Time Associated Diagnosis Comments BASIC METABOLIC PANEL Routine 07/08/2022 2:26 PM EST Hypertension, unspecified type documented in this encounter Results * (ABNORMAL) Basic Metabolic Panel (07/08/2022 2:26 PM EST) Glucose 444(H) 65 - 139 mg/dL [facility] [place] [email or web address] Comment: Verified by repeat analysis. Non-fasting reference interval Urea Nitrogen (BUN) 14 7 - 25 mg/dL [facility] [place] [email or web address] Creatinine, Serum 1.23 0.70 - 1.28 mg/dL [facility] [place] [facility] eGFR 62 > OR = 60 mL/min/1 .73m2 [facility] [place] [facility] Comment: The eGFR is based on the CKD-EPI 2020 equation. To calculate the new eGFR from a previous Creatinine or Cystatin C result, go to https://www.kidney.org/professionals/ kdoqi/gfr%5Fcalculator BUN/Creatinine Ratio NOT APPLICABLE 6 - 22 (calc) [facility] [place] [facility] Sodium 132(L) 135 - 146 mmol/L [facility] [place] [facility] Potassium 4.3 3.5 - 5.3 mmol/L [facility] [place] [facility] Chloride 96(L) 98 - 110 mmol/L [facility] [place] [facility] Carbon Dioxide 29 20 - 32 mmol/L [facility] [place] [facility] Calcium 9.3 8.6 - 10.3 mg/dL [facility] [place] [email or web address] Blood Venous blood specimen / Unknown 07/08/2022 2:26 PM EST 07/08/2022 2:27 PM EST Narrative [facility] - 07/09/2022 12:11 PM EST FASTING:NO FASTING: NO Bhakti Reggie DO LAB BLOOD ORDERABLES Final R esult [facility] [address] [facility], [place] [address] [facility] [address] [facility], ([address]) [place] [address] documented in this encounter Visit Diagnoses Diagnosis Hypertension, unspecified type- Primary documented in this encounter Care Teams Railways Assistant Relationship Specialty Start Date End Date Sindy Obrien MD [address] [place] [address] PCP - General Family Medicine 03/28/19 Edgard Dasilva, PharmD [address] [place] [address] Pharmacist Pharmacy 12/23/24 documented as of this encounter
--- OUTSIDE RECORDS SUMMARY | 2025-05-09 07:18 | XMS_ITS | Encounter Summary ---
Author Organization [employer] Address [address] [facility] [address] 7[address] [place] [address] Care Team Providers Care Tank Shop Supervisor Name Role Phone Sindy Obrien MD Primary Care Provide r Edgard Dasilva PharmD Unavailable [phone] Reason for Visit * Reason Comments Med Refill Encounter Details Date Type Department Care Team (Late st Contact Info) Description 12/15/2023 Refill [facility] [address] [place], [place] [phone] Sindy Obrien MD [address] [place] [address] Chronic right shoulder pain Social History Tobacco [...] Description 05/17/2025 2:45 PM EST Office Visit [address] [address] Sindy Obrien MD [address] [place] [address] 06/14/2025 2:00 PM EST Clinical Support [address] [address] 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 RN 07/07/2025 10:30 AM EST Medication Management [address] [address] Edgard Dasilva PharmD [address] [place] [phone] documented as of this encounter Goals Goal [...] documented as of this encounter Care Teams Tank Shop Supervisor Relationship Specialty Start Date End Date Sindy Obrien MD [address] [place] [phone] PCP - General Family Medicine 03/28/19 Edgard Dasilva, PharmD [address] [place] [phone] Pharmacist Pharmacy 12/23/24 documented as of this encounter
--- OUTSIDE RECORDS SUMMARY | 2025-05-09 07:18 | XMS_ITS | Encounter Summary ---
Author Organization [employer] Address [address] [facility] [address] 7[address] [place] [address] Care Team Providers Care Mower Mechanic Name Role Phone Sindy Obrien MD Primary Care Provide r Edgard Dasilva PharmD Unavailable [phone] Reason for Visit * Reason Comments Med Refill Encounter Details Date Type Department Care Team (Late st Contact Info) Description 05/20/2024 Refill [facility] [address] [place], [place] [phone] Sindy Obrien MD [address] [place] [address] HTN (hypertension), benign; Type 2 diabetes mellitus with hyperglycemia, with long-term current use of insulin ([facility]) Social History Tobacco Use Types Packs/Day [...] Description 05/17/2025 2:45 PM EST Office Visit [address] [address] Sindy Obrien MD [address] [place] [address] 06/14/2025 2:00 PM EST Clinical Support [address] [address] Leah Sampson RN 07/07/2025 10:30 AM EST Medication Management [address] [address] Edgard Dasilva, Nithya [address] [place] [phone] documented as of this encounter Goals Goal [...] documented as of this encounter Care Teams Mower Mechanic Relationship Specialty Start Date End Date Sindy Obrien MD [address] [place], [place] [phone] PCP - General Family Medicine 03/28/19 Edgard Dasilva, AtiyaD [address] [place] [address] Pharmacist Pharmacy 12/23/24 documented as of this encounter
--- OUTSIDE RECORDS SUMMARY | 2025-05-09 07:18 | XMS_ITS | Clinical Summary ---
Author Organization [email or web address] Address 75 [facility] 7t [place] [address] Care Team Providers Care Resident Programs Assistant Name Role Phone Sindy Obrien MD Primary Care Provide r Edgard Dasilva PharmD Unavailable [phone] Allergies No known active allergies Medications ferrous sulfate 325 (65 Fe) MG tablet Take by mouth every 12 (twelve) hours. Active Alcohol Swabs 70 % pads Use to test blood sugar three times daily Active glucose blood (FREESTYLE LITE) test stripIndication s:Type 2 diabetes mellitus with hyperglycemia, with long-term current use of insulin ([facility]) Use to test blood sugar three times daily 100 each 11 05/01/20 25 10:34 AM EST 025 2025 Active Lancets miscIndications :Type 2 diabetes mellitus with hyperglycemia, with long-term current use of insulin ([facility]) Use to test blood sugar three times daily 100 each 11 025 Active fluticasone (Flonase) 50 MCG/ACT nasal spray Administer 1 spray into each nostril Once per day. 16 g Active sodium chloride (Kerr Nasal [place]) 0.65 % nasal spray Administer 1 spray into each nostril if needed for congestion. 30 mL 025 2025 Active potassium citrate CR (Urocit-K-10) 10 mEq ER tablet Take 2 tablets by mouth 2 times daily. 025 Active insulin lispro (HumaLOG KWIKPEN) 100 UNIT/ML injectionIndica tions:Type 2 diabetes mellitus with hyperglycemia, with long-term current use of insulin ([facility]) Inject 4 units subcutaneously before breakfast and 20 units before dinner. 15 mL 5 05/01/20 25 10:34 AM EST Active insulin pen needle (BD Pen Needle Candie U/F) 32G x 4 mm miscIndications :Type 2 diabetes mellitus with hyperglycemia, without long-term current use of insulin ([facility]) Use with insulin three times daily as directed 100 each Active glucose 4 g chewable tabletIndicatio ns:Type 2 diabetes mellitus with hyperglycemia, with long-term current use of insulin ([facility]) Chew 4 tablets (16 g) if needed for low blood sugar. 30 tablet 2025 Active atorvastatin (Lipitor) 20 MG tabletIndicatio ns:HTN (hypertension), benign TAKE 1 TABLET BY MOUTH EVERY MORNING 90 tablet 1 025 Active olmesartan (BENIcar) 5 MG tabletIndicatio ns:Primary hypertension TAKE 1 TABLET BY MOUTH EVERY MORNING 90 tablet 025 Active insulin degludec (Tresiba FlexTouch) 200 UNIT/ML injectionIndica tions:Type 2 diabetes mellitus with hyperglycemia, with long-term current use of insulin ([facility]) Inject 54 units subcutaneously once daily 9 mL 05/01/20 25 10:34 AM 025 Active Tirzepatide (Mounjaro) 5 MG/0.5ML solution auto-injectorIn dications:Type 2 diabetes mellitus with hyperglycemia, with long-term current use of insulin ([facility]) Inject 5 mg under the skin 1 (one) time per week. 2 mL 5 05/01/20 10:34 AM 025 Active amLODIPine (Norvasc) 10 MG tabletIndicatio ns:HTN (hypertension), benign TAKE 1 TABLET BY MOUTH EVERY MORNING 90 tablet 1 025 Active cyanocobalamin (Vitamin B-12) 1000 MCG tabletIndicatio ns:Routine health maintenance TAKE 1 TABLET BY MOUTH EVERY MORNING 90 tablet 1 025 Active oxyCODONE (Roxicodone) 5 MG immediate release tabletIndicatio ns:Chronic right shoulder pain Take 1 tablet (5 mg) by mouth every 8 (eight) hours if needed for severe pain for up to 28 days. Do not start before April 18, 2025. 84 tablet 025 2024 Active carvedilol (Coreg) 12.5 MG tabletIndicatio ns:HTN (hypertension), benign TAKE 1 TABLET BY MOUTH TWICE DAILY IN THE MORNING AND IN THE EVENING WITH FOOD 60 tablet 3 05/01/20 25 10:34 AM EST 025 Active Farxiga 10 MGIndications:T ype 2 diabetes mellitus with hyperglycemia, with long-term current use of insulin ([facility]) TAKE 1 TABLET BY MOUTH EVERY MORNING 30 tablet 11 05/01/20 25 10:34 AM EST 025 Active dapagliflozin (Farxiga) 10 MGIndications:T ype 2 diabetes mellitus with hyperglycemia, with long-term current use of insulin ([facility]) Take 1 tablet (10 mg) by mouth Once per day. 30 tablet 11 024 2024 Discontinued carvedilol (Coreg) 12.5 MG tabletIndicatio ns:HTN (hypertension), benign TAKE 1 TABLET BY MOUTH TWICE DAILY IN THE MORNING AND IN THE EVENING WITH FOOD 60 tablet 3 025 2024 Discontinued oxyCODONE (Roxicodone) 5 MG immediate release tabletIndicatio ns:Chronic right shoulder pain Take 1 tablet (5 mg) by mouth every 8 (eight) hours if needed for severe pain for up to 28 days. Do not start before March 21, 2025. 84 tablet 025 2024 Discontinued Active Problems Problem Noted Date Diagnosed Date Dizziness 02/09/2025 Assessment & Plan (02/09/2025 7:07 PM EDT): Advised to drink plenty of water avoid dehydration and change positions slowly I will order carotid ultrasound I will refer him to ENT to rule out vertigo Stage 3b chronic kidney disease ([facility]) 2024 Assessment & Plan (02/09/2025 7:06 PM EDT): To follow-up with nephrology Long-term current use of opiate analgesic 2024 Acute non-recurrent maxillary sinusitis 10/12/19 Assessment & Plan (10/11/2024 1:52 PM EDT): [...] start him on oxycodone 5mg Q 8hrs 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 I spoke with [facility], and pt. 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 I spoke with [facility], and pt. will bring Medbox in [...] Encounters Date Type Department Care Team Description 05/08/2025 Patient Outreach [facility] [place] [address] Sindy Obrien MD Pre-visit Planning (SDOH screening completed on 10/21/2024) 05/01/2025 1:00 PM EST Clinical Support [facility] [address] Leah Sampson RN Long-term current use of opiate analgesic (Primary Dx) 05/01/2025 Travel 04/23/2025 Refill [facility] [place] [address] Sindy Obrien MD HTN (hypertension), benign; Type 2 diabetes mellitus with hyperglycemia, with long-term current use of insulin (HCC) 04/14/2025 Refill [facility] [place] [address] Sindy Obrien MD Chronic right shoulder pain 03/31/2025 Orders Only [facility] [address] [place] [address] Sindy Obrien MD Type 2 diabetes mellitus with hyperglycemia, with long-term current use of insulin (HCC) (Primary Dx); HTN (hypertension), benign 03/31/2025 Travel 03/28/2025 2:00 PM EDT Clinical Support [facility] [place] [address] Leah Sampson RN Long-term current use of opiate analgesic (Primary Dx) 03/28/2025 Telephone [facility] [place] [address] Leah Sampson RN UTOX Abnormal 03/28/2025 Travel 03/23/2025 Telephone [facility] [place] [address] Sindy Obrien MD telephone call 03/21/2025 Refill [facility] [address] [place] [address] Sindy Obrien MD HTN (hypertension), benign; Routine health maintenance 03/15/2025 Refill [facility] [address] [place] [address] Sindy Obrien MD Chronic right shoulder pain 03/09/2025 Telephone [facility] [address] [place] [address] Sindy Obrien MD telephone call 03/07/2025 Telephone [facility] [address] [place] [address] Sindy Obrien MD Dec recall 03/02/2025 Travel 02/23/2025 1:00 PM EDT Clinical Support [facility] [address] [place] [address] Leah Sampson RN Long-term current use of opiate analgesic (Primary Dx) 02/23/2025 Telephone [facility] [address] [place] [address] Leah Sampson RN RETAIL CUSTODIAL ASSOCIATE Agreement renewed today; Oxycodone count 02/23/2025 Travel 02/22/2025 Refill [facility] [address] [place] [address] Sindy Obrien MD Primary hypertension 02/21/2025 Refill [facility] [address] [place] [address] Sindy Obrien MD HTN (hypertension), benign; Depressive disorder 02/20/2025 Refill [facility] [address] [place] [address] Sindy Obrien MD Chronic right shoulder pain 02/20/2025 Refill [facility] [address] [place] [address] Sindy Obrien MD Chronic right shoulder pain 02/10/2025 Orders Only GENERIC EXTERNAL DATA DEPARTMENT Provider, Generic External Data 02/09/2025 1:45 PM EDT Office Visit [facility] [address] [place] [address] Sindy Obrien MD Type 2 diabetes mellitus with hyperglycemia, with long-term current use of insulin (CMS/HCC) (Primary Dx); Primary hypertension; Dizziness; Stage 3b chronic kidney disease (CMS/HCC); Carcinoma of stomach (CMS/HCC); Dietary counseling; Exercise counseling 02/09/2025 Travel 02/08/2025 Telephone [facility] [address] [place] [address] Sindy Obrien MD Chart Prep from Last 3 Months Immunizations Immunization Administration Dates Next Due Moderna Covid-19 Vaccine 12+ 05/28/2021,10/26/19,09/27/2020 Pneumococcal Conjugate PCV 13 09/24/2017 Tdap 09/24/2017 [...] Sign Reading Time Taken Comments Blood Pressure 138/76 03/31/2025 10:57 AM EDT Pulse 82 03/31/2025 10:57 AM EDT Temperature 36.4 C (97.6 F) [...] Description 05/17/2025 2:45 PM EST Office Visit [address] [address] Sindy Obrien MD [address] [place] [address] 06/14/2025 2:00 PM EST Clinical Support [address] [address] Leah Sampson, MANSI 07/07/2025 10:30 AM EST Medication Management [address] [address] Edgard Dasilva, PharmD [address] [place] [phone] Health Maintenance Due Date Last Done Comments CT Colonography 1950 FIT DNA/Cologuard 1950 FIT 1950 Sigmoidoscopy 1950 Diabetes: Foot Exam 1960 RSV Patients and Patients Aged 60 years or older (1 - Risk 50-74 years 1-dose series) 2000 Zoster Vaccines (1 of 2) 2000 FOBT 06/28/2020 06/28/2019 Pneumococcal Vaccine: 50+ Years (3 of 3 - PCV20 or PCV21) 09/24/2022 09/24/2017, 04/09/2012 COVID-19 Vaccine ( - season) 2025 05/28/2021, 10/25/2020, 09/27/2020 Influenza Vaccine [...] Component 9.2( 2:01 PM EDT) No Caroline Neri, AtiyaD Help patients manage their type 2 diabetes [...] has chronic kidney disease No Mimi Khalil Procedures Procedure Name Priority Date/Time Associated Diagnosis Comments POCT VELASQUEZ-14 URINE DRUG SCREEN Routine 05/01/2025 1:00 PM EST Long-term current use of opiate analgesic POCT VELASQUEZ-14 URINE DRUG SCREEN Routine 03/28/2025 [...] hyperglycemia, with long-term current use of insulin ([facility]) POCT GLUCOSE Routine 02/09/2025 2:01 PM EDT Type 2 diabetes mellitus with hyperglycemia, with long-term current use of insulin ([facility]) LIPID PANEL, STANDARD Routine 11/02/2024 11:56 AM EDT Type 2 diabetes mellitus with hyperglycemia, with long-term current use of insulin ([facility]) HEPATITIS PANEL, GENERAL Routine 06/10/2024 11:29 AM EST Vestibular disorder, unspecified laterality HM COLONOSCOPY Routine 01/23/2023 ZZZ HISTORICAL OCCULT BLOOD STOOL X3 Routine 06/28/2019 12:00 AM EST from Last 3 Months or Most Recently Relevant to Health Maintenance Results * (ABNORMAL) POCT VELASQUEZ-14 Urine Drug Screen (05/01/2025 1:00 PM EST) Only the most recent of3 [...] Negative ng/mL Oxycodone Screen, Urine Positive(A) Negative 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 05/08/26 Internal Pass Control Sindy Carlson MD POINT OF CARE TEST EN TER/EDIT ORDERABLES Final Result * Drug Monitoring, Methadone Metabolite, Screen, Urine (03/28/2025 1:45 PM EDT) Methadone Screen, Urine Not Detected Not Detect ng/mL [facility] Comment:Methadone cut-off is 300 ng/mL.Positive results are unconfirmed and should not be used fornon-medical purposes. Urine (Urine, Random) 03/28/2025 1:45 PM EDT 03/28/2025 4:48 PM EDT Sindy Carlson MD LAB URINE ORDERABLES Final Result [facility] [address] [place] [phone] * Hematoxylin and Eosin Stain (02/10/2025 2:51 PM EDT) 02/10/2025 2:51 PM EDT 02/13/2025 7:08 AM EDT Adryan [facility] - 02/14/2025 3:30 PM EDT ----- ------- Name: Frantz Fink Age/Sex: 74/M : 1950 Unit#: [id number] Attend Dr: Trenton Mueller MD Re02/10/25 Status: [facility] Location: [facility] Disch: ----- ------- SPEC : [id number] RECD: 02/13/25 STATUS: CHIOMA HENDRIX NUM: [id number] MAKENZIE: 02/10/25-14[address] [facility] [address]: Trenton Mueller MD ENTERED: 02/13/25 SP [...] formalin labeled anastomotic ulcer bx's are multiple charles-carpenter irregular tissue fragments ranging from 0.1-0.25 cm, submitted in toto in a cassette labeled B. CONTINUED ON NEXT PAGE ----- ------- Name: Frantz Fink Age/Sex: 74/M : 1950 Unit#: [id number] Attend Dr: Trenton Mueller MD Re02/10/25 Status: [facility] Location: [facility] Disch: ----- ------- SPEC : [id number] RECD: 02/13/25 STATUS: ARNALDOMildred VAUGHANNicola NUM: [id number] MAKENZIE: 02/10/25-145[facility] DR: Trenton Mueller MD ENTERED: 02/13/25 SP TYPE: Surgical OTHR DR: Sindy Obrien MD ORDERED: HE Stain/12, Gross Micro L4/4, IHC, Special st. 2/4, H. pylori, AB/PAS/4 Gross Description (Continued) Part [...] developed and their performance characteristics determined by [facility]. They have not been cleared or approved by the U.S. Food and Drug Administration (FDA). However, the FDA has determined that such clearance or approval is not necessary. This laboratory is certified under the Clinical Laboratory Improvement Amendments of 1988 (CLIA) as qualified to perform high complexity clinical laboratory testing. Copies To: Sindy Obrien MD [address] [address] Trenton Mueller MD [facility] [address] [place] [phone] ----- ------- Signed (signature on file) Melissa Escobar MD 02/14/25 1530 ----- ------- END OF REPORT us Generic External Data Provider LAB BLOOD ORDERAB LES Final Result [facility] [address] [place] [address] [phone] * (ABNORMAL) Glucose, Whole Blood (02/10/2025 1:23 PM EDT) Glucose, Whole Blood 202(H) 60 - 115 mg/dL [facility] Comment:METER #: [id number] 02/10/2025 1:23 PM EDT 02/10/2025 1:37 PM EDT Generic External Data Provider LAB BLOOD ORDERAB LES Final Result [facility] [address] [place] [phone] * (ABNORMAL) POCT Hgb A1c (02/09/2025 2:01 PM EDT) [facility] Hemoglobin A1C 9.2(A) 4.0 - 5.7 % QC Media Lot # [id number] Lot# Expiration Date 41,627 Blood 02/09/2025 2:01 PM EDT Sindy Carlson MD POINT OF CARE TEST EN TER/EDIT ORDERABLES Final Result * (ABNORMAL) POCT Glucose (02/09/2025 2:01 PM EDT) Pathologist [facility] Glucose Blood, POC 328(A) 60 - 200 mg/dL QC Media Lot # [id number] Lot# Expiration Date 113,025 Blood Capillary blood specimen / Unknown 02/09/2025 2:01 PM EDT Sindy Carlson MD POINT OF CARE TEST EN TER/EDIT ORDERABLES Final Result * (ABNORMAL) Lipid Panel, Standard (11/02/2024 11:56 AM EDT) [facility] Triglycerides 134 <150 mg/dL [facility] Comment:Desirable Triglyceri de: less than 150 mg/dLBorderline High Triglyceride 150-199 mg/dLHigh Triglyceride: 200-499 mg/dLVery High Triglyceride: greater than or equal to 5OO mg/dL Cholesterol 121 <200 mg/dL [facility] Comment:Desirable Cholestero l: less than 200 mg/dLBorderline High Cholesterol: 200-239 mg/dLHigh Cholesterol: greater than 239 mg/dL LDL Cholesterol Calculated 66 <100 mg/dL [facility] Comment:Desirable LDL: less than 100 mg/dLNear Optimal/Above Optimal LDL: 110- 129 mg/dLBorderline High LDL: 130-159 mg/dLHigh LDL: 160-189 mg/dLVery High LDL: greater than or equal to 190 mg/dL HDL Cholesterol 29(L) >40 mg/dL [facility] Comment:Desirable HDL: great er than 40 mg/dL Note: This HDL assay may give artificially low results in patients with liver disease. Blood Venous blood specimen / Unknown 11/02/2024 11:56 AM EDT 11/02/2024 1:15 PM EDT us Sindy Carlson MD LAB BLOOD ORDERABLES Final Result Performing Organization Address [facility] de Phone Number [facility] [address] [place] [phone] * Hepatitis Panel, General (06/10/2024 11:29 AM EST) Hepatitis A IgM Nonreactive Nonreactive [facility] Comment:IgM antibodies to MCCARTHY V not detected; does not exclude earlyacute or recovered HAV infection. ~Hepatitis B Surface Antibody NONREACTIVE Nonreactive [facility] Comment:Nonreactive: < 8.00 mIU/mL Hepatitis B Core Antibody Nonreactive Nonreactive [facility] Hepatitis C Antibody Nonreactive Nonreactive [facility] Comment:Antibodies to HCV no t detected; does not exclude early acuteHCV infection. Hepatitis B Surface Ag Negative Negative [facility] Blood Venous blood specimen / Unknown 06/10/2024 11:29 AM EST 06/10/2024 1:07 PM EST Sindy Carlson MD LAB BLOOD ORDERABLES Final Result Performing Organization Address [facility] Co de Phone Number [facility] [address] [place] [address] [phone] * Colonoscopy (01/23/2023) us Historical Provider MD HEALTH MAINTENANCE Final Result * (ABNORMAL) OCCULT BLOOD STOOL X3 (06/28/2019 12:00 AM EST) OCCULT BLOOD STOOL-1 NEG NEG [facility] OCCULT BLOOD STOOL-1 DATE 06/25/19 [facility] OCCULT BLOOD STOOL-2 POS(AA) NEG [facility] OCCULT BLOOD STOOL-2 DATE 06/26/19 [facility] OCCULT BLOOD STOOL-3 POS(AA) NEG [facility] OCCULT BLOOD STOOL-3 DATE 06/28/19 [facility] 06/28/2019 Sindy Carlson MD HISTORICAL/NON ORDERA BLE LABS Final Result Performing Organization Address City/State/[facility] Co de Phone Number [facility] [address] [place] [address], from Last 3 Months or Most Recently Relevant to Health Maintenance Additional Health Concerns Active Problems Noted Date [...] 05/08/2025 Patient has chronic kidney disease 05/08/2025 Insurance [facility] DETENTION OPTIONS (O D-SNP) KATHERINE EDWARDS [id number] Care Teams Resident Programs Assistant Relationship Specialty Start Date End Date Sindy Obrien MD [address] [place], [place] PCP - General Family Medicine 03/28/19 Edgard Dasilva, AtiyaD [address] [place], [place] Pharmacist Pharmacy 12/23/24
--- OUTSIDE RECORDS SUMMARY | 2025-05-09 07:18 | XMS_ITS | Encounter Summary ---
Author Organization [employer] Address [address] [facility] [address] [place] [address] Care Team Providers Care Supervisor Forming Department Name Role Phone Sindy Obrien MD Primary Care Provide r Edgard Dasilva PharmD Unavailable [phone] Encounter Details Date Type Department Care Team ([facility] st Contact Info) Description 09/03/2023 Orders Only [facility] MEDICINE [address] [place] [address] Sindy Obrien MD [address] [place], [place] [phone] Chronic right shoulder pain (Primary Dx) Social [...] Description 05/17/2025 2:45 PM EST Office Visit [address] [address] Sindy Obrien MD [address] [place] [address] 06/14/2025 2:00 PM EST Clinical Support [address] [address] Leah Sampson RN 07/07/2025 10:30 AM EST Medication Management [address] [address] Edgard Dasilva, PharmD [address] [place] [address] documented as of this encounter Procedures Procedure [...] PM EDT Narrative 09/08/2023 11:17 AM EDT [address] [address] [address] Scan Report Signed Patient: Frantz Fink MR#: [id number] : 1950 Acct:[id number] Age/Sex: 73 / M ADM Date: 09/07/23 Loc: HO.CT Attending Dr: Christa Ferrera MD Ordering Physician: Christa Ferrera MD Date of Service: 09/07/23 Procedure(s): CT chest w IV con Accession Number(s): [id number] cc: Sindy Obrien MD; Christa Ferrera MD [...] technique TOTAL EXAM DLP: 392 mGy-cm 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 Clear lungs. 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 Clear lungs. Nonobstructive bowel [...] in OV> 09/08/23 1113 DD/ 1227 TD/TT: Background Check Coordinator: us [facility] External Provider IMG CT PROCEDURES Final Result * Stress test with myocardial perfusion (09/04/2023 8:15 AM EDT) 09/04/2023 8:15 AM EDT Narrative [facility] - 09/04/2023 3:44 PM EDT [address] [address] Nuclear Medicine Report Signed Patient: Frantz Fink MR#: [id number] : 1950 Acct:[id number] Age/Sex: 73 / M ADM Date: 09/03/23 Loc: E[facility] Attending Dr: Amanda SCOTT Ordering Physician: Amanda De La Paz Date of Service: 09/03/23 Procedure(s): NM cardiolite stress test Accession Number(s): [id number] cc: Sindy Obrien MD; Amanda De La [...] in OV> 09/04/23 1540 DD/ 0815 TD/TT: Background Check Coordinator: Procedure Note Donotuseinterpreter, Image - 09/04/[address] [address] Nuclear Medicine Report Signed Patient: Frantz FinkMR#: [id number] : 1950cct:[id number] Age/Sex: 73 / MADM Date: 09/03/23 Loc: EMANU[facility] Attending Dr: Amanda SCOTT Ordering Physician: Amanda De La Paz Date of Service: 09/03/23 Procedure(s): NM cardiolite stress test Accession Number(s): [id number] cc: Sindy Obrien MD; Amanda De La [...] in OV> 09/04/23 1540 DD/ 0815 TD/TT: Background Check Coordinator: [facility] External Provider CV STRE SS PROCEDURES Edited Result - Final [facility] [address] [place] [address] documented in this encounter Visit Diagnoses Diagnosis Chronic right shoulder pain- Primary Pain in joint, shoulder region documented in this encounter Additional Health Concerns Assessment Noted Time PHQ-9 Depression Total Score: 0 10/24/19 23 3:05 PM EDT documented as of this encounter Care Teams Supervisor Forming Department Relationship Specialty Start Date End Date Sindy Obrien MD [address] [place] [address] PCP - General Family Medicine 03/28/19 Edgard Dasilva, Nithya [address] [place] [address] Pharmacist Pharmacy 12/23/24 documented as of this encounter
--- NOTE | 2025-05-09 07:41 | MHC.PC.OV ---
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 Tester Required: No Accompanied by: Self / Same As Patient Allergies No Known Allergies (No Known Allergies*) Allergy (Verified 05/09/25 07:56) Medication List - Last Reconciled 05/09/25 by Teodora Sanabria MD amlodipine (Norvasc) 10 mg PO DAILY atorvastatin 20 mg PO BEDTIME calcium polycarbophil 1,250 mg PO DAILY carvedilol 12.5 mg PO BID cyanocobalamin (vitamin B-12) 1,000 mcg PO DAILY dapagliflozin propanediol (Farxiga) 10 mg PO DAILY fluticasone propionate 50 mcg/actuation (Flonase Allergy Relief) 2 sprays intranasal DAILY glipizide ER (Glucotrol XL) 10 mg PO DAILY insulin glargine (Lantus Solostar U-100 Insulin) 36 units subcut BID meclizine 25 mg PO TID PRN mirtazapine 15 mg PO BEDTIME olmesartan 5 mg PO DAILY oxycodone 5 mg PO Q8H PRN potassium citrate ER 20 mEq (2 x 10 mEq (1,080 mg)) PO BID 90 days prednisone 10 mg PO DIRECTED 7 days Tobacco use date assessed: 05/09/25 Fall risk assessment: No Falls in past year Last assessed Fall Risk: 05/09/25 Dental Screening Dental Screen Date: 05/09/25 Did you have a dental visit in the last 12 months?: Yes Did you have a dental problem in the last 6 months where you did not have access to dental care?: No Was dental information given to patient?: Patient has dentist HPI HPI Comments History of Present Illness Details The patient is a 74 year old individual presenting to [facility] for chronic condition management. The patient has a history of diabetes with a recent A1c of 6.2, and hypertension, both noted to be well-controlled at this visit. Current medications include amlodipine 10 mg, atorvastatin 20 mg, carvedilol, vitamin B12, Farxiga, glipizide, and a nasal spray for allergies. The patient denies taking Lantus, meclizine, mirtazapine, or olmesartan. The patient has a history of gastric adenocarcinoma diagnosed in 2013 and is followed by oncology. The most recent colonoscopy was performed in 2023. The patient reports a new complaint of right shoulder pain with five active tendons, which limits arm elevation. There were two previous plans for surgery that did not proceed, and the patient has not received physical therapy for the shoulder. The patient's last cholesterol check was in October and was normal, but will be rechecked as the patient stopped some medications a couple of months ago. The patient reports a history of smoking and alcohol use, but affirms they no longer do either. The patient denies feeling depressed. [facility] Medical History Renal calculi Diabetes History of gastrectomy History of colon polyps Gastrointestinal stromal tumor (GIST) (~2014) Gastric adenocarcinoma Hydrocele Gastritis Vitamin B12 deficiency Hypercholesterolemia Hypertension Depression Surgical History H/O lithotripsy Hx of resection of stomach Hx of esophagogastroduodenoscopy Hx of endoscopy History of hernia repair History of back surgery (~2016) History of colonoscopy (~07/22/19) History of esophagogastroduodenoscopy (EGD) (07/22/19) Family History Father No problems noted. Mother History of cancer Social History Household Members: Spouse Housing: Apartment Are you a primary health care administrator to a significant other at home: No Do you presently have visiting nurse or other home services: No Alcohol intake: former Patient Tobacco Use Status: Former Tobacco user Tobacco use type: Cigarette Years Smoked: 35 e-Cigarette/Vaping Use: Never Used Second Hand Smoke Exposure: No Advance Directives Date on File: 06/27/24 service: No Current occupational status: retired Cognitive needs: No Hearing needs: No Vision needs: No Questionnaire PHQ-9 Over the last 2 weeks, how often have you been bothered by any of the following problems? 1. Little interest or pleasure in doing things: not at all 2. Feeling down, depressed, or hopeless: not at all 3. Trouble falling or staying asleep, or sleeping too much: not at all 4. Feeling tired or having little energy: not at all 5. Poor appetite or overeating: not at all 6. Feeling bad about yourself - or that you are a failure or have let yourself or your family down: not at all 7. Trouble concentrating on things, such as reading the newspaper or watching television: not at all 8. Moving or speaking so slowly that other people could have noticed. Or the opposite - being so fidgety or restless that you have been moving around a lot more than usual: not at all 9. Thoughts that you would be better off or of hurting yourself in some way: not at all Total score: 0 Depression Screening Interpretation: Negative Depression Screening Done: Yes 17264 - PHQ-9 Billing: Yes Source: Developed by Drs. Dusty Bradford, Nicolette Sarkar, Pipo Mcwilliams and colleagues, with an educational farzaneh from [employer]. Thrive Questionnaire Date Thrive assessed: 06/26/24 I am a: Patient What is your living situation today?: I have a steady place to live Within the past 12 months, did the food you bought not last and you didn't have the money to get more?: Never true Within the past 12 months, did you worry whether your food would run out before you got money to buy more?: Never true Do you have trouble paying for medicines?: No Do you have trouble getting transportation to medical appointments?: No Do you have trouble paying your heating and electricity bill?: No Do you have trouble taking care of your child, family member or friend?: No Do you have trouble with day-to-day activities such as bathing, preparing meals, shopping, managing finances, etc.?: No Are you currently unemployed and looking for a job?: No Are you interested in more education?: No Please select the resources that you would like help with: None Currently or been in a relationship where the following occur: No concerns reported THRIVE Score: 0 AUDIT C Alcohol Use Questionnaire (AUDIT-C) 1. How often do you have a drink containing alcohol?: Never 3. How often do you have six or more drinks on one occasion?: Never Total Score: 0 Score Reviewed/Action Taken: No LORENZO-7 AMB Questionnaire LORENZO-7 Date LORENZO - 7 assessed: 05/09/25 Feeling nervous, anxious, or on edge: 0 = Not at all Not being able to stop or control worryin = Not at all Worrying too much about different things: 0 = Not at all Trouble relaxin = Not at all Being so restless that it is hard to sit still: 0 = Not at all Becoming easily annoyed or irritable: 0 = Not at all Feeling afraid as if something awful might happen: 0 = Not at all Total LORENZO-7 score (0-4 normal; 5-9 mild; 10-14 moderate; 15-21 severe): 0 Source: Developed by Drs. Dusty Bradford, Nicolette Sarkar, Pipo Mcwilliams and colleagues, with an educational farzaneh from [employer]. LORENZO-7 Assessment Billing LORENZO-7 Assessment Tool: LORENZO-7 Assessment 04306 Review of Systems Const All systems reviewed & are unremarkable except as noted in HPI and below Card Denies chest pain at rest, Denies chest pain with activity, Denies edema, Denies irregular heart rhythm, Denies claudication, Denies dyspnea, Denies dyspnea on exertion, Denies orthopnea, Denies paroxysmal nocturnal dyspnea and Denies slow heart rate Resp Denies cough, Denies dyspnea and Denies dyspnea on exertion Physical exam (Primary Care) Vital Signs: Last Vital Signs Pulse 65 05/09/25 07:42 BP 118/72 05/09/25 07:42 Pulse Ox 98 05/09/25 07:42 Oxygen Delivery Method Room Air 05/09/25 07:42 BMI result Body Mass Index 29.2 Tobacco/Smoking Status: Tobacco use Status Tobacco use date assessed 05/09/25 05/09/25 07:47 Patient Tobacco Use Status Former Tobacco user 05/09/25 07:47 Tobacco use type Cigarette 05/09/25 07:47 e-Cigarette/Vaping Use Never Used 05/09/25 07:47 PHQ-9: PHQ-9 Score PHQ-9: Total score 0 05/09/25 10:03 Depression Screening Interpretation: Negative Thrive Assessment: Date of Thrive Assessment Date Thrive assessed 06/26/24 05/09/25 07:47 Currently or been in a relationship where the following occur: No concerns reported Resp Effort & Inspection: normal respiratory effort Auscultation: clear to auscultation bilaterally Cardio Jugular venous distension: no JVD Rate: regular rate Rhythm: regular rhythm Heart sounds: S1 normal heart sound present and S2 normal heart sound present Extrem General: Yes full ROM Coding Level of Care Code Complex visit Add On G2211 Diagnoses Diabetes E11.9 Primary hypertension I10 Hypertension type: primary hypertension Hypercholesterolemia E78.00 Gastric adenocarcinoma C16.9 Rotator cuff arthropathy of right shoulder M12.811 Additional Codes LORENZO-7 Assessment Billing - LORENZO-7 Assessment Tool: LORENZO-7 Assessment 45278 ([id number]) PHQ-9 - 04663 - PHQ-9 Billing: Yes ([id number]) Time Spent (min) 21 Assessment & Plan Assessment & Plan (1) Diabetes: Code(s): E11.9 - Type 2 diabetes mellitus without complications Category: Medical (2) Hypertension: Code(s): I10 - Essential (primary) hypertension Category: Medical Qualifiers: Hypertension type: primary hypertension Qualified Code(s): I10 - Essential (primary) hypertension (3) Hypercholesterolemia: Code(s): E78.00 - Pure hypercholesterolemia, unspecified Category: Medical (4) Gastric adenocarcinoma: Comment: Repeat EGD in 1 yr - due 09/2022 Code(s): C16.9 - Malignant neoplasm of stomach, unspecified Category: Medical (5) Rotator cuff arthropathy of right shoulder: Code(s): M12.811 - Other specific arthropathies, not elsewhere classified, right shoulder Category: Medical Plan Plan 1. Diabetes Mellitus The patient's diabetes is well-controlled with a recent A1c of 6.2. Will continue current medications including Farxiga and glipizide. New labs will be ordered for monitoring. 2. Hypertension The patient's blood pressure is well-controlled on the current regimen of amlodipine and carvedilol, which will be continued. 3. Hyperlipidemia The last cholesterol panel in October was reportedly normal. Due to a recent change in medication adherence, a new lipid panel will be ordered. The patient will continue atorvastatin 20 mg. 4. Right Shoulder Pain The patient complains of right shoulder pain and limited range of motion. A referral will be placed for physical therapy to improve arm movement. A prescription for meloxicam will be provided for pain management, as an alternative to tramadol. 5. Health Maintenance The patient has received a pneumonia vaccine in the past but not the PCV20. The patient declined the influenza and PCV20 vaccines at this time. Routine laboratory studies will be ordered. Advised to schedule an eye exam. 6. Gastric adenocarcinoma Follow up with heatology/oncology. Orders: Orders Lipid Panel Today E78.5 - Hyperlipidemia, unspecified Vitamin D 25-OH Total Today E55.9 - Vitamin D deficiency, unspecified Vitamin B12 and Folate Today E53.8 - Deficiency of other specified B group vitamins Comprehensive Wilcox. Panel Fast Today E11.9 - Type 2 diabetes mellitus without complications AMB Hemoglobin A1c Today Z13.9 - Encounter for screening, unspecified Microalbumin, Random (w Creat) Today R80.9 - Proteinuria, unspecified Referrals Orthopedics Referral M12.811 - Other specific arthropathies, not elsewhere classified, right shoulder Medications: New meloxicam 15 mg PO DAILY 90 tabs 1RF 90 days
[2025-05-09 07:42] VITALS: BP 118/72; PULSE 65; O2SAT 98; BMI 29.2
== END 2025-05-09 08:09 | disposition home or self-care (01) ==
LOC: HO.HMCH 07:15
PROVIDERS: PCP Internal Medicine; Visit Provider Internal Medicine
DX: E11.9 Type 2 diabetes mellitus without complications (principal); C16.9 Malignant neoplasm of stomach, unspecified; I10 Essential (primary) hypertension; E78.00 Pure hypercholesterolemia, unspecified; M12.811 Other specific arthropathies, not elsewhere classified, right shoulder

== ENCOUNTER → 2025-05-09 07:14 | Outpatient (BNVA) | payer OTHER, SELFPAY | PROVIDERS: PCP Internal Medicine; Visit Provider Internal Medicine | DX: E11.9 Type 2 diabetes mellitus without complications (principal); I10 Essential (primary) hypertension; M12.811 Other specific arthropathies, not elsewhere classified, right shoulder; E78.00 Pure hypercholesterolemia, unspecified; C16.9 Malignant neoplasm of stomach, unspecified; Z79.899 Other long term (current) drug therapy | CPT/HCPCS: 96127; 99212 ==

== ENCOUNTER 2025-05-24 12:48 | Outpatient (REF) | payer OTHER, SELFPAY ==
--- NOTE | ~2025-05-24 | US_ITS ---
EXAMINATION: US EXTRACRANIAL CAROTID DUPLEX, BILATERAL CLINICAL INFORMATION: Dizziness, diabetes, former smoker, hypertension COMPARISON: None available. TECHNIQUE: Real-time ultrasound and Doppler techniques (integrating B-mode 2-D vascular images, Doppler spectral analysis and color-flow Doppler imaging) were utilized to interrogate the extracranial carotid arteries, the vertebral arteries and proximal subclavian arteries bilaterally. The degree of stenosis is determined by criteria similar to NASCET. FINDINGS: Right Side: 1. There is mild mixed echogenicity atherosclerotic plaque seen in the bifurcation/proximal ICA region. 2. The common carotid artery PSV proximally is 58 cm/s and distally 51 cm/s. 3. The proximal internal carotid artery velocities are 66 cm/s systolic and 26 cm/s diastolic. 4. The proximal external carotid artery PSV is 101 cm/s. 5. The vertebral artery shows antegrade flow. 6. The subclavian artery waveforms are triphasic. ICA/CCA ratio 1.1 Left Side: 1. There is mild echogenic atherosclerotic plaque seen in the bifurcation/proximal ICA region. 2. The common carotid artery PSV proximally is 69 cm/s and distally 44 cm/s. 3. The proximal internal carotid artery velocities are 65 cm/s systolic and 22 cm/s diastolic. 4. The proximal external carotid artery PSV is 63 cm/s. 5. The vertebral artery shows antegrade flow. 6. The subclavian artery waveforms are triphasic. ICA/CCA ratio = 0.9. US/US carotid duplex BI IMPRESSION: 1. RIGHT: No hemodynamically significant stenosis 2. LEFT: No hemodynamically significant stenosis Electronically signed by: Vernon Quick MD 05/24/2025 01:56 PM EST
--- OUTSIDE RECORDS SUMMARY | 2025-05-24 16:56 | XMS_ITS | Encounter Summary ---
Author Organization [employer] Address [address] [facility] [address] [place] [address] Care Team Providers Care Director Property Name Role Phone Sindy Obrien MD Primary Care Provide r Edgard Dasilva PharmD Unavailable [phone] Reason for Visit * Reason Comments Med Refill Encounter Details Date Type Department Care Team ([facility] st Contact Info) Description 05/09/2025 Refill [facility] MEDICINE [address] [place] [address] Sindy Obrien MD [address] [place] [address] Chronic right shoulder pain Social History Tobacco [...] Care Team (Late st Contact Info) Description 05/25/2025 1:30 PM EST Clinical Support [address] [address] 06/14/2025 2:00 PM EST Clinical Support [address] [address] Leah Sampson RN 07/07/2025 10:30 AM EST Medication Management [address] [address] Edgard Dasilva PharmD [address] [place] [phone] documented as of this encounter Goals Goal Patient Goal Type Associated Problems Recent Progress Patient-Stated? Author Hemoglobin A1c < 8 Result Component 6.1( 2:55 PM EST) No Caroline Neri, Nithya Help patients manage their type 2 diabetes Care Plan Help patients manage their type 2 diabetes Leah Monsivais, MANSI Weekly blood pressure task Care Plan Weekly blood pressure task No Leah Sampson, MANSI Help patients manage their type 2 diabetes Care Plan Help patients manage their type 2 diabetes Leah Monsivais, MANSI Patient has chronic kidney disease Care Plan Patient has chronic kidney disease No Leah Sampson RN Weekly blood pressure task Care Plan Weekly blood pressure task No Leah Sampson RN Patient has chronic kidney disease Care Plan Patient has chronic kidney disease No Leah Sampson RN Weekly blood pressure task Care Plan Weekly blood pressure task No Simran Mimi Weekly blood pressure task Care Plan Weekly blood pressure task No Simran Mimi Patient has chronic kidney disease Care Plan Patient has chronic kidney disease No Mimi Khalil Patient has chronic kidney disease Care Plan Patient has chronic kidney disease No Mimi Khalil documented as of this encounter Visit Diagnoses Diagnosis Chronic right shoulder pain Pain in joint, shoulder region documented in this encounter Additional Health Concerns Active [...] as of this encounter Care Teams Director Property Relationship Specialty Start Date End Date Sindy Obrien MD [address] [place] [address] PCP - General Family Medicine 03/28/19 Edgard Dasilva, Nithya [address] [place] [address] Pharmacist Pharmacy 12/23/24 documented as of this encounter
--- OUTSIDE RECORDS SUMMARY | 2025-05-24 16:56 | XMS_ITS | Encounter Summary ---
Author Organization [employer] Address [address] 7[address] [place] [address] Care Team Providers Care Medical Leader Name Role Phone Sindy Obrien MD Primary Care Provide r Edgard Dasilva PharmD Unavailable [phone] Reason for Visit * Reason Comments Med Refill Encounter Details Date Type Department Care Team ([facility] st Contact Info) Description 04/26/2023 Refill [facility] MEDICINE [address] [place], [place] [phone] Sindy Obrien MD [address] [place] [address] HTN (hypertension), benign Social History Tobacco Use [...] Description 05/25/2025 1:30 PM EST Clinical Support [address] [address] 06/14/2025 2:00 PM EST Clinical Support [address] [address] Leah Sapmson RN 07/07/2025 10:30 AM EST Medication Management [address] [address] Edgard Dasilva, Nithya [address] [place] [address] documented as of this encounter Visit Diagnoses Diagnosis HTN (hypertension), benign Essential hypertension, benign documented in this encounter Additional Health Concerns Assessment Noted Time PHQ-9 Depression Total Score: 0 10/24/19 23 3:05 PM EDT documented as of this encounter Care Teams Medical Leader Relationship Specialty Start Date End Date Sindy Obrien MD [address] [place] [address] PCP - General Family Medicine 03/28/19 Edgard Dasilva, PharmD [address] [place] [address] Pharmacist Pharmacy 12/23/24 documented as of this encounter
--- OUTSIDE RECORDS SUMMARY | 2025-05-24 16:56 | XMS_ITS | Encounter Summary ---
Author Organization [employer] Address [address] [place] [address] Care Team Providers Care Groundskeeping Maintenance Worker Name Role Phone Sindy Obrien MD Primary Care Provide r Edgard Dasilva PharmD Unavailable [phone] Encounter Details Date Type Department Care Team ([facility] st Contact Info) Description 02/02/2025 Orders Only [facility] MEDICINE [address] [place] [address] Sindy Obrien MD [address] [place], [place] [phone] Social History Tobacco Use Types Packs/Day Years [...] Description 05/25/2025 1:30 PM EST Clinical Support [address] [address] 06/14/2025 2:00 PM EST Clinical Support [address] [address] Leah Sampson RN 07/07/2025 10:30 AM EST Medication Management [address] [address] Edgard Dasilva PharmD [address] [place] [address] documented as of this encounter Goals Goal Patient Goal Type Associated Problems Recent Progress Patient-Stated? Author Hemoglobin A1c < 8 Result Component 6.1(05/17/2025 2:55 PM EST) No Caroline Neri PharmD documented as of this encounter Visit Diagnoses Not on filedocumented in this encounter Additional Health Concerns Assessment Noted Time PHQ-9 Depression Total Score: 0 06/06/20 24 1:16 PM EST documented as of this encounter Care Teams Groundskeeping Maintenance Worker Relationship Specialty Start Date End Date Sindy Obrien MD [address] [place] [address] PCP - General Family Medicine 03/28/19 Edgard Dasilva, PharmD [address] [place] [address] Pharmacist Pharmacy 12/23/24 documented as of this encounter
--- OUTSIDE RECORDS SUMMARY | 2025-05-24 16:56 | XMS_ITS | Encounter Summary ---
Author Organization [employer] Address [address] 7t [place] [address] Care Team Providers Care Vice President Of Advertising Name Role Phone Sindy Obrien MD Primary Care Provide r Edgard Dasilva PharmD Unavailable [phone] Encounter Details Date Type Department Care Team ([facility] Contact Info) Description 05/24/2025 Results Follow-Up [facility] MEDICINE [address] [place] [address] Sindy Obrien MD [address] [place] [address] Vascular US carotid artery duplex bilateral Social History Tobacco Use Types Packs/Day Years Used Date Smoking Tobacco: Former Cigarettes Passive Smoke Exposure: Past Smokeless Tobacco: Never Alcohol Use Standard Drinks/Week Comments Never 0 (1 standard drink = 0.6 oz pur e alcohol) Depression Answer Date Recorded Patient Health Questionnaire-9 Score 0 05/17/2025 Patient Health Questionnaire-9 Score 0 05/17/2025 Last PHQ-9: Questionnaire Data Not on file 1 07/18/2024 Housing Stability Answer Date Recorded What is [...] Date Recorded Patient Health Questionnaire-2 Score 0 05/17/2025 Internet Access Answer Date Recorded Internet Access [...] Telephone Encounter - Colin River MA - 05/24/2025 3:09 PM EST Spoke with pt and informed of message below. * Telephone Encounter - Colin River MA - 05/24/2025 3:09 PM EST ----- Message from Nurse Maricarmen Coffey sent at 05/24/2025 2:38 PM EST ----- ----- Message ----- From: Sindy Carlson MD Sent: 05/24/2025 2:11 PM EST To: [facility] Red Team Nurses Please let patient know his carotid US is normal thank you ----- Message ----- From: Mariana Ris Results In Sent: 05/24/2025 1:59 PM EST To: Sindy Carlson MD documented in this encounter Plan of Treatment Upcoming Encounters Date Type Department Care Team (Late st Contact Info) Description 05/25/2025 1:30 PM EST Clinical Support [address] [address] 06/14/2025 2:00 PM EST Clinical Support [address] [address] Leah Sampson RN 07/07/2025 10:30 AM EST Medication Management [address] [address] Edgard Dasilva, Nithya [address] [place] [address] documented as of this encounter Goals Goal [...] has chronic kidney disease No Mimi Khalil Weekly blood pressure task Care Plan Weekly blood pressure task No Colin River MA Weekly blood pressure task Care Plan Weekly blood pressure task No Colin River MA Patient has chronic kidney disease Care Plan Patient has chronic kidney disease No Colin River MA Patient has chronic kidney disease Care Plan Patient has chronic kidney disease No Colin River MA Weekly blood pressure task Care Plan Weekly blood pressure task No Sully Dasilva Weekly blood pressure task Care Plan Weekly blood pressure task No Sully Dasilva Patient has chronic kidney disease Care Plan Patient has chronic kidney disease No Sully Dasilva Patient has chronic kidney disease Care Plan Patient has chronic kidney disease No Sully Dasilva Weekly blood pressure task Care Plan Weekly blood pressure task No Leah Sapmson RN Weekly blood pressure task Care Plan Weekly blood pressure task No Leah Sampson RN Patient has chronic kidney disease Care Plan Patient has chronic kidney disease No Leah Sampson RN Patient has chronic kidney disease Care Plan Patient has chronic kidney disease No Leah Sampson RN Weekly blood pressure task Care Plan Weekly blood pressure task No Luis-Bg es Jessy, [place] Weekly blood pressure task Care Plan Weekly blood pressure task No Luis-Bg es, Jessy, [place] Patient has chronic kidney disease Care Plan Patient has chronic kidney disease No Luis-Bg es Jessy, [place] Patient has chronic kidney disease Care Plan Patient has chronic kidney disease No Luis-Bg es, Jessy, [place] Weekly blood pressure task Care Plan Weekly blood pressure task No Sindy Obrien MD Weekly blood pressure task Care Plan Weekly blood pressure task No Sindy Obrien MD Patient has chronic kidney disease Care Plan Patient has chronic kidney disease No Sindy Obrien MD Patient has chronic kidney disease Care Plan Patient has chronic kidney disease No Sindy Obrien MD documented as of this encounter Visit Diagnoses [...] 05/08/2025 Patient has chronic kidney disease 05/08/2025 Weekly blood pressure task 05/16/2025 Weekly blood pressure task 05/16/2025 Patient has chronic kidney disease 05/16/2025 Patient has chronic kidney disease 05/16/2025 Weekly blood pressure task 05/17/2025 Weekly blood pressure task 05/17/2025 Patient has chronic kidney disease 05/17/2025 Patient has chronic kidney disease 05/17/2025 Weekly blood pressure task 05/17/2025 Weekly blood pressure task 05/17/2025 Patient has chronic kidney disease 05/17/2025 Patient has chronic kidney disease 05/17/2025 Weekly blood pressure task 05/17/2025 Weekly blood pressure task 05/17/2025 Patient has chronic kidney disease 05/17/2025 Patient has chronic kidney disease 05/17/2025 Weekly blood pressure task 05/24/2025 Weekly blood pressure task 05/24/2025 Patient has chronic kidney disease 05/24/2025 Patient has chronic kidney disease 05/24/2025 Assessment Noted Time PHQ-9 Depression Total Score: 0 05/17/20 2:50 PM EST documented as of this encounter Care Teams Vice President Of Advertising Relationship Specialty Start Date End Date Sindy Obrien MD [address] [place] [address] PCP - General Family Medicine 03/28/19 Edgard Dasilva, AtiyaD [address] [place] [address] Pharmacist Pharmacy 12/23/24 documented as of this encounter
--- OUTSIDE RECORDS SUMMARY | 2025-05-24 16:56 | XMS_ITS | Patient Health Record ---
Author Organization [facility] Address [address] [place] [address] Care Team Providers Care Geriatric Personal Care Aide Name Role Phone Teodora Gomez Primary Care Provider Dusty Stoner Unavailable [phone] Reason For Referral No Information Medications Medication SIG (Take, Route, Frequency, Duration) Notes Start Date End Date Status metFORMIN HCl 1000 MG Tablet TOME MADHAV TA BLETA 2 VECES AL RHIANNON Oral; Duration: 30 Active Lisinopril 40 MG Tablet TAKE 1 TABLET ON CE A DAY ORALLY Oral; Duration: 30 Active hydroCHLOROthiazide 25 MG Tablet TOME MADHAV TABLETA POR VIA ORAL TODOS LOS HATCH Oral; Duration: 30 Active Simvastatin 20 MG Tablet TOME MADHAV TABLET A EN LA NOCHE Oral; Duration: 30 Active Social History Social History Additional Details Category Social Info Options Details Miscellaneous: Marital status: Occupation: home Section Notes: Nonsmoker since 2009; no alc ohol in > 20 yrs--denies hx of heavy EtOH Problems Problem Type SNOMED Code ICD Code Onset Dates Problem Status W/U Status Risk Notes Problem Liver function tests abnormal (689300664) Abnormal liver function tests (790.6) Active confirmed Problem Computed tomography of abdomen abnormal (finding) (1138598384810 9107) Abnormal computed tomography of gastrointestinal tract (793.4) Active confirmed Plan Of Treatment Future Test Test Name Order Date UPPER GI ENDOSCOPY 09/29/2013 Insurance Providers Payer Name Payer Address Payer Phone Subscriber Number Group Number Insured Name Patient Relationship to Insured Coverage Start Date Coverage End Date [facility] [address] [place] [address] [id number] STACEY LAURAMODESTO TATO Self - patient is the insured Medical (General) History Medical History History ICD Code NIDDM HTN Hyperlipidemia kidney stones Denies [place],CVA,Lung disease,renal disease Describes an EGD and Colonos copy at [facility] in approx 2011-reports they were OK as far as he knows Surgical History Surgery Date(Month/Year) Right leg surgey-plate in upper thigh 19 78 Fatty tumor removal in back hernia repair
--- OUTSIDE RECORDS SUMMARY | 2025-05-24 16:56 | XMS_ITS | Encounter Summary ---
Author Organization [employer] Address [address] [facility] [address] 7t [place] [address] Care Team Providers Care Distribution Engineering Technologist Name Role Phone Sindy Obrien MD Primary Care Provide r Edgard Dasilva PharmD Unavailable [phone] Reason for Visit * Reason Comments Med Refill Encounter Details Date Type Department Care Team ([facility] Contact Info) Description 10/29/2022 Refill [facility] MEDICINE [address] [place] [address] [facility] [address] [place] [address] Depressive disorder Social History Tobacco Use Types [...] Upcoming Encounters Date Type Department Care Team ([facility] Contact Info) Description 05/25/2025 1:30 PM EST Clinical Support [address] [address] 06/14/2025 2:00 PM EST Clinical Support [address] [address] Leah Sampson, RN 07/07/2025 10:30 AM EST Medication Management [address] [address] Edgard Dasilva, PharmD [address] [place] [address] documented as of this encounter Visit Diagnoses Diagnosis Depressive disorder Depressive disorder, not elsewhere classified documented in this encounter Additional Health Concerns Assessment Noted Time PHQ-9 Depression Total Score: 0 10/24/19 23 3:05 PM EDT documented as of this encounter Care Teams Distribution Engineering Technologist Relationship Specialty Start Date End Date Sindy Obrien MD [address] [place] [address] PCP - General Family Medicine 03/28/19 Edgard Dasilva, Nithya [address] [place] [address] Pharmacist Pharmacy 12/23/24 documented as of this encounter
--- OUTSIDE RECORDS SUMMARY | 2025-05-24 16:56 | XMS_ITS | Encounter Summary ---
Author Organization [employer] Address [address] 7t [place] [address] Care Team Providers Care Raw Scales Operator Name Role Phone Sindy Obrien MD Primary Care Provide r Edgard Dasilva PharmD Unavailable [phone] Reason for Visit * Reason Comments Med Refill Encounter Details Date Type Department Care Team (Late st Contact Info) Description 05/20/2024 Refill [facility] [address] [place], [place] [phone] Sindy Obrien MD [address] [place] [address] HTN (hypertension), benign; Type 2 diabetes mellitus with hyperglycemia, with long-term current use of insulin ([facility]) Social History Tobacco Use [...] Description 05/25/2025 1:30 PM EST Clinical Support [address] [address] 06/14/2025 2:00 PM EST Clinical Support [address] [address] Leah Sampson RN 07/07/2025 10:30 AM EST Medication Management [address] [address] Edgard Dasilva, PharmD [address] [place] [address] documented as of this encounter Goals Goal Patient Goal Type Associated Problems Recent Progress Patient-Stated? Author Hemoglobin A1c < 8 Result Component 6.1(05/17/2025 2:55 PM EST) No Caroline Neri, PharmD documented as of this encounter Visit Diagnoses Diagnosis HTN (hypertension), benign Essential hypertension, benign Type 2 diabetes mellitus with hyperglycemia, with long-term current use of insulin (HCC) documented in this encounter Additional Health Concerns Assessment Noted Time PHQ-9 Depression Total Score: 0 10/24/19 23 3:05 PM EDT documented as of this encounter Care Teams Raw Scales Operator Relationship Specialty Start Date End Date Sindy Obrien MD [address] [place] [address] PCP - General Family Medicine 03/28/19 Edgard Dasilva, PharmD [address] [place] [address] [place] [address] Pharmacist Pharmacy 12/23/24 documented as of this encounter
--- OUTSIDE RECORDS SUMMARY | 2025-05-24 16:56 | XMS_ITS | Encounter Summary ---
Author Organization [employer] Address [address] 7t [place] [address] Care Team Providers Care Hand Mixer Name Role Phone Sindy Obrien MD Primary Care Provide r Edgard Dasilva PharmD Unavailable [phone] Reason for Visit * Reason Comments Med Refill Encounter Details Date Type Department Care Team ([facility] st Contact Info) Description 06/02/2023 Refill [facility] MEDICINE [address] [place], [place] [phone] Sindy Obrien MD [address] [place] [address] Vitamin D deficiency, unspecified Social History Tobacco [...] Description 05/25/2025 1:30 PM EST Clinical Support [address] [address] 06/14/2025 2:00 PM EST Clinical Support [address] [address] Leah Sampson RN 07/07/2025 10:30 AM EST Medication Management [address] [address] Edgard Dasilva, Nithya [address] [place] [address] documented as of this encounter Visit Diagnoses Diagnosis Vitamin D deficiency, unspecified documented in this encounter Additional Health Concerns Assessment Noted Time PHQ-9 Depression Total Score: 0 10/24/19 23 3:05 PM EDT documented as of this encounter Care Teams Hand Mixer Relationship Specialty Start Date End Date Sindy Obrien MD [address] [place] [address] PCP - General Family Medicine 03/28/19 Edgard Dasilva, PharmD [address] [place] [address] Pharmacist Pharmacy 12/23/24 documented as of this encounter
--- OUTSIDE RECORDS SUMMARY | 2025-05-24 16:56 | XMS_ITS | Encounter Summary ---
Author Organization [employer] Address [address] [facility] 7t [place] [address] Care Team Providers Care Dip Tube Assembler Machine Name Role Phone Sindy Obrien MD Primary Care Provide r Edgard Dasilva PharmD Unavailable [phone] Reason for Visit * Reason Onset Date Comments FYI 11/18/2023 Encounter Details Date Type Department Care Team ([facility] st Contact Info) Description 11/18/2023 Telephone [facility] MEDICINE [address] [place] [address] Sindy Obrien MD [address] [place], [place] [phone] FYI Social History Tobacco Use Types Packs/Day [...] - 11/18/2023 10:58 AM EDT Tc from [facility] with Dr Leslie (orthopedics) calling to inform they are going to be prescribing 2 weeks of Oxy 10MG after surgery. documented in this encounter Plan of Treatment Upcoming Encounters Date Type Department Care Team (Late st Contact Info) Description 05/25/2025 1:30 PM EST Clinical Support [address] [address] 06/14/2025 2:00 PM EST Clinical Support [address] [address] Leah Sampson RN 07/07/2025 10:30 AM EST Medication Management [address] [address] Edgard Dasilva, Nithya [address] [place] [address] documented as of this encounter Goals Goal Patient Goal Type Associated Problems Recent Progress Patient-Stated? Author Hemoglobin A1c < 8 Result Component 6.1(05/17/2025 2:55 PM EST) No Caroline Neri, Nithya documented as of this encounter Visit Diagnoses Not on filedocumented in this encounter Additional Health Concerns Assessment Noted Time PHQ-9 Depression Total Score: 0 10/24/19 23 3:05 PM EDT documented as of this encounter Care Teams Dip Tube Assembler Machine Relationship Specialty Start Date End Date Sindy Obrien MD [address] [place], [place] [phone] PCP - General Family Medicine 03/28/19 Edgard Dasilva, AtiyaD [address] [place] [address] Pharmacist Pharmacy 12/23/24 documented as of this encounter
--- OUTSIDE RECORDS SUMMARY | 2025-05-24 16:56 | XMS_ITS | Encounter Summary ---
Author Organization [employer] Address [address] 7t [place] [address] Care Team Providers Care Cook Fruit Name Role Phone Sindy Obrien MD Primary Care Provide r Edgard Dasilva PharmD Unavailable [phone] Encounter Details Date Type Department Care Team ([facility] st Contact Info) Description 09/03/2023 Orders Only [facility] MEDICINE [address] [place] [address] Sindy Obrien MD [address] [place], [place] [phone] Chronic right shoulder pain (Primary Dx) Social [...] Description 05/25/2025 1:30 PM EST Clinical Support [address] [address] 06/14/2025 2:00 PM EST Clinical Support [address] [address] Leah Sampson, MANSI 07/07/2025 10:30 AM EST Medication Management [address] [address] Edgard Dasilva, PharmD [address] [place] [address] documented as of this encounter Procedures Procedure [...] PM EDT Narrative 09/08/2023 11:17 AM EDT [address] [address] [address] Scan Report Signed Patient: Frantz Fink MR#: [id number] : 1950 Acct:[id number] Age/Sex: 73 / M ADM Date: 09/07/23 Loc: HO.CT Attending Dr: Christa Ferrera MD Ordering Physician: Christa Ferrera MD Date of Service: 09/07/23 Procedure(s): CT chest w IV con Accession Number(s): [id number] cc: Sindy Obrien MD; Christa Ferrera MD [...] technique TOTAL EXAM DLP: 392 mGy-cm FINDINGS: DIESEL POWERPLANT MECHANIC HELPER: Enlarged superior mediastinum. Clear lungs. Nonobstructive bowel [...] in OV> 09/08/23 1113 DD/ 1227 TD/TT: Lead Retail Sales Associate: Procedure Note Donotuseinterpreter, Image - 09/08/[address] [address] [address] Scan Report Signed Patient: Frantz FinkMR#: [id number] : 1Acct:[id number] Age/Sex: 73 / MADM Date: 09/07/23 Loc: HO.CT Attending Dr: Christa Ferrera MD Ordering Physician: Christa Ferrera MD Date of Service: 09/07/23 Procedure(s): CT chest w IV con Accession Number(s): [id number] cc: Sindy Obrien MD; Christa Ferrera MD [...] technique TOTAL EXAM DLP: 392 mGy-cm FINDINGS: DIESEL POWERPLANT MECHANIC HELPER: Enlarged superior mediastinum. Clear lungs. Nonobstructive bowel [...] in OV> 09/08/23 1113 DD/ 1227 TD/TT: Lead Retail Sales Associate: us [facility] External Provider IMG CT PROCEDURES Final Result * Stress test with myocardial perfusion (09/04/2023 8:15 AM EDT) 09/04/2023 8:15 AM EDT Narrative [facility] - 09/04/2023 3:44 PM EDT [address] [address] Nuclear Medicine Report Signed Patient: Frantz Fink MR#: [id number] : 1950 Acct:[id number] Age/Sex: 73 / M ADM Date: 09/03/23 Loc: [facility] Attending Dr: Amanda SCOTT Ordering Physician: Amanda De La Paz Date of Service: 09/03/23 Procedure(s): NM cardiolite stress test Accession Number(s): [id number] cc: Sindy Obrien MD; Amanda De La [...] in OV> 09/04/23 1540 DD/ 0815 TD/TT: Lead Retail Sales Associate: Procedure Note Donotuseinterpreter, Image - 09/04/[address] [address] Nuclear Medicine Report Signed Patient: Frantz FinkMR#: [id number] : 1950cct:[id number] Age/Sex: 73 / MADM Date: 09/03/23 [facility]: Amanda SCOTT Ordering Physician: Amanda De La Paz Date of Service: 09/03/23 Procedure(s): NM cardiolite stress test Accession Number(s): [id number] cc: Sindy Obrien MD; Amanda De La [...] in OV> 09/04/23 1540 DD/ 0815 TD/TT: Lead Retail Sales Associate: [facility] External Provider CV STRE SS PROCEDURES Edited Result - Final [facility] [address] [place] [address] documented in this encounter Visit Diagnoses Diagnosis Chronic right shoulder pain- Primary Pain in joint, shoulder region documented in this encounter Additional Health Concerns Assessment Noted Time PHQ-9 Depression Total Score: 0 10/24/19 23 3:05 PM EDT documented as of this encounter Care Teams Cook Fruit Relationship Specialty Start Date End Date Sindy Obrien MD [address] [place] [address] PCP - General Family Medicine 03/28/19 Edgard Dasilva PharmD [address] [place] [address] Pharmacist Pharmacy 12/23/24 documented as of this encounter
--- OUTSIDE RECORDS SUMMARY | 2025-05-24 16:56 | XMS_ITS | Encounter Summary ---
Author Organization [employer] Address [address] [facility] 7t [place] [address] Care Team Providers Care Tool Machine Shop Supervisor Name Role Phone Sindy Obrien MD Primary Care Provide r Edgard Dasilva PharmD Unavailable [phone] Encounter Details Date Type Department Care Team (Late st Contact Info) Description 05/20/2022 Orders Only [address] [address] Bhakti Paredes DO [address] [place] [address] Hypertension, unspecified type (Primary Dx) Social History [...] Description 05/25/2025 1:30 PM EST Clinical Support [address] [address] 06/14/2025 2:00 PM EST Clinical Support [address] [phone] Leah Sampson RN 07/07/2025 10:30 AM EST Medication Management [facility] MEDICINE 230 [place], [place] [phone] Edgard Dasilva, PharmD [address] [place], [place] [phone] documented as of this encounter Procedures Procedure Name Priority Date/Time Associated Diagnosis Comments BASIC METABOLIC PANEL Routine 07/08/2022 2:26 PM EST Hypertension, unspecified type documented in this encounter Results * (ABNORMAL) Basic Metabolic Panel (07/08/2022 2:26 PM EST) Glucose 444(H) 65 - 139 mg/dL [employer] [place] [employer] Comment: Verified by repeat analysis. Non-fasting reference interval Urea Nitrogen (BUN) 14 7 - 25 mg/dL [employer] [place] [employer] Creatinine, Serum 1.23 0.70 - 1.28 mg/dL [facility] [place] [facility] eGFR 62 > OR = 60 mL/min/1 .73m2 [facility] [place] [facility] Comment: The eGFR is based on the CKD-EPI 2020 equation. To calculate the new eGFR from a previous Creatinine or Cystatin C result, go to https://www.kidney.org/professionals/ kdoqi/gfr%5Fcalculator BUN/Creatinine Ratio NOT APPLICABLE 6 - 22 (calc) [facility] [place] [facility] Sodium 132(L) 135 - 146 mmol/L [facility] [place] [facility] Potassium 4.3 3.5 - 5.3 mmol/L [facility] [place] [facility] Chloride 96(L) 98 - 110 mmol/L [facility] [place] [facility] Carbon Dioxide 29 20 - 32 mmol/L [facility] Calcium 9.3 8.6 - 10.3 mg/dL [facility] [place] [facility] Blood Venous blood specimen / Unknown 07/08/2022 2:26 PM EST 07/08/2022 2:27 PM EST Narrative [facility] - 07/09/2022 12:11 PM EST FASTING:NO FASTING: NO us Bhakti Paredes DO LAB BLOOD ORDERABLES Final R esult [facility] [address] [facility], [address], [place] [address] [employer] [address] [facility], ([address]) [place] [address] documented in this encounter Visit Diagnoses Diagnosis Hypertension, unspecified type- Primary documented in this encounter Care Teams Tool Machine Shop Supervisor Relationship Specialty Start Date End Date Sindy Obrien MD [address] [place] [address] PCP - General Family Medicine 03/28/19 Edgard Dasilva, AtiyaD [address] [place] [address] Pharmacist Pharmacy 12/23/24 documented as of this encounter
--- OUTSIDE RECORDS SUMMARY | 2025-05-24 16:56 | XMS_ITS | Encounter Summary ---
Author Organization [employer] Address [address] 7t [place] [address] Care Team Providers Care Flight Coordinator Name Role Phone Sindy Obrien MD Primary Care Provide r Edgard Dasilva PharmD Unavailable [phone] Reason for Visit * Reason Comments Med Refill Encounter Details Date Type Department Care Team (Late st Contact Info) Description 12/15/2023 Refill [facility] MEDICINE 230 [place], [place] [phone] Sindy Obrien MD [address] [place] [address] Chronic right shoulder pain Social History Tobacco [...] Description 05/25/2025 1:30 PM EST Clinical Support [address] [address] 06/14/2025 2:00 PM EST Clinical Support [address] [address] Leah Sampson RN 07/07/2025 10:30 AM EST Medication Management [address] [address] Edgard Dasilva PharmD [address] [place] [address] documented as of this encounter Goals Goal [...] documented as of this encounter Care Teams Flight Coordinator Relationship Specialty Start Date End Date Sindy Obrien MD [address] [place] [address] PCP - General Family Medicine 03/28/19 Edgard Dasilva, PharmD [address] [place] [address] Pharmacist Pharmacy 12/23/24 documented as of this encounter
--- OUTSIDE RECORDS SUMMARY | 2025-05-24 16:56 | XMS_ITS | Encounter Summary ---
Author Organization [employer] Address [address] [place] [address] Care Team Providers Care Supervisor Wrapping Room Name Role Phone Sindy Obrien MD Primary Care Provide r Edgard Dasilva PharmD Unavailable [phone] Reason for Visit * Reason Comments Med Refill Encounter Details Date Type Department Care Team (Late st Contact Info) Description 09/03/2023 Refill [facility] MEDICINE [address] [place], [place] [phone] Sindy Obrien MD [address] [place] [phone] Chronic right shoulder pain Social History Tobacco [...] Description 05/25/2025 1:30 PM EST Clinical Support [address] [address] 06/14/2025 2:00 PM EST Clinical Support [address] [address] Leah Sampson, MANSI 07/07/2025 10:30 AM EST Medication Management [address] [address] Edgard Dasilva, Nithya [address] [place] [phone] documented as of this encounter Visit Diagnoses Diagnosis Chronic right shoulder pain Pain in joint, shoulder region documented in this encounter Additional Health Concerns Assessment Noted Time PHQ-9 Depression Total Score: 0 10/24/19 23 3:05 PM EDT documented as of this encounter Care Teams Supervisor Wrapping Room Relationship Specialty Start Date End Date Sindy Obrien MD [address] [place] [phone] PCP - General Family Medicine 03/28/19 Edgard Dasilva, AtiyaD [address] [place] [phone] Pharmacist Pharmacy 12/23/24 documented as of this encounter
--- OUTSIDE RECORDS SUMMARY | 2025-05-24 16:56 | XMS_ITS | Encounter Summary ---
Author Organization [employer] Address [address] [facility] [address] [place] [address] Care Team Providers Care Pot Puller Name Role Phone Sindy Obrien MD Primary Care Provide r Edgard Dasilva PharmD Unavailable [phone] Encounter Details Date Type Department Care Team (Late st Contact Info) Description 02/13/2023 Orders Only [facility] MEDICINE [address] [place] [phone] ProviderOren MD Social History Tobacco Use Types [...] 05/25/2025 1:30 PM EST Clinical Support [address] [address] 06/14/2025 2:00 PM EST Clinical Support [address] [address] Leah Sampson RN 07/07/2025 10:30 AM EST Medication Management [address] [place] [address] Edgard Dasilva, PharmD [address] [place] [address] documented as of this encounter Procedures Procedure [...] documented as of this encounter Care Teams Pot Puller Relationship Specialty Start Date End Date Sindy Obrien MD [address] [place] [phone] PCP - General Family Medicine 03/28/19 Edgard Dasilva, PharmD [address] [place] [phone] Pharmacist Pharmacy 12/23/24 documented as of this encounter
--- OUTSIDE RECORDS SUMMARY | 2025-05-24 16:57 | XMS_ITS | Clinical Summary ---
Author Organization [employer] Address [address] [place] [address] Care Team Providers Care Trucker Hand Name Role Phone Sindy Obrien MD Primary Care Provide r Edgard Dasilva PharmD Unavailable [phone] Allergies No known active allergies Medications ferrous sulfate 325 (65 Fe) MG tablet Take by mouth every 12 (twelve) hours. Active Alcohol Swabs 70 % pads Use to test blood sugar three times daily Active glucose blood (FREESTYLE LITE) test stripIndication s:Type 2 diabetes mellitus with hyperglycemia, with long-term current use of insulin ([facility]) Use to test blood sugar three times daily 100 each 11 05/01/20 25 10:34 AM EST 025 2025 Active Lancets miscIndications :Type 2 diabetes mellitus with hyperglycemia, with long-term current use of insulin ([facility]) Use to test blood sugar three times daily 100 each 11 Active fluticasone (Flonase) 50 MCG/ACT nasal spray Administer 1 spray into each nostril Once per day. 16 g Active sodium chloride (Hand Nasal [place]) 0.65 % nasal spray Administer 1 spray into each nostril if needed for congestion. 30 mL 025 2025 Active potassium citrate CR (Urocit-K-10) 10 mEq ER tablet Take 2 tablets by mouth 2 times daily. 025 Active insulin lispro (HumaLOG KWIKPEN) 100 UNIT/ML injectionIndica tions:Type 2 diabetes mellitus with hyperglycemia, with long-term current use of insulin ([facility]) Inject 4 units subcutaneously before breakfast and 20 units before dinner. 15 mL 5 05/01/20 25 10:34 AM EST 025 Active insulin pen needle (BD Pen Needle Candie U/F) 32G x 4 mm miscIndications :Type 2 diabetes mellitus with hyperglycemia, without long-term current use of insulin ([facility]) Use with insulin three times daily as directed 100 each Active glucose 4 g chewable tabletIndicatio ns:Type 2 diabetes mellitus with hyperglycemia, with long-term current use of insulin ([facility]) Chew 4 tablets (16 g) [...] with long-term current use of insulin ([facility]) Inject 54 units subcutaneously once daily 9 mL 5 05/01/20 25 10:34 AM EST 025 Active Tirzepatide (Mounjaro) 5 MG/0.5ML solution auto-injectorIn dications:Type 2 diabetes mellitus with hyperglycemia, with long-term current use of insulin ([facility]) Inject 5 mg under the skin 1 (one) time per week. 2 mL 5 05/01/20 25 10:34 AM EST 025 Active amLODIPine (Norvasc) 10 MG tabletIndicatio ns:HTN (hypertension), benign TAKE 1 TABLET BY MOUTH EVERY MORNING 90 tablet 1 025 Active cyanocobalamin (Vitamin B-12) 1000 MCG tabletIndicatio ns:Routine health maintenance TAKE 1 TABLET BY MOUTH EVERY MORNING 90 tablet 1 025 Active carvedilol (Coreg) 12.5 MG tabletIndicatio ns:HTN (hypertension), benign TAKE 1 TABLET BY MOUTH TWICE DAILY IN THE MORNING AND IN THE EVENING WITH FOOD 60 tablet 3 05/01/20 25 10:34 AM EST Active Farxiga 10 MGIndications:T ype 2 diabetes mellitus with hyperglycemia, with long-term current use of insulin ([facility]) TAKE 1 TABLET BY MOUTH EVERY MORNING 30 tablet 11 05/01/20 25 10:34 AM EST 025 Active oxyCODONE (Roxicodone) 5 MG immediate release tabletIndicatio ns:Chronic right shoulder pain TAKE 1 TABLET BY MOUTH EVERY 8 HOURS NEEDED FOR SEVERE PAIN 84 tablet 05/17/20 25 3:19 PM EST 025 Active oxyCODONE (Roxicodone) 5 MG immediate release tabletIndicatio ns:Chronic right shoulder pain Take 1 tablet (5 mg) by mouth every 8 (eight) hours if needed for severe pain for up to 28 days. Do not start before April 18, 2025. 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 Type 2 diabetes mellitus wit [...] (CMS/HCC) 05/14/2022 Overview (06/12/2022): Patient seen by [facility] on 05/29/22: [...] spoke with [facility], and pt. will bring Medbox in [...] has MEDbox and has been ready to order picker x last week ---advised pt to [...] spoke with [facility], and pt. will bring Medbox in [...] Encounters Date Type Department Care Team Description 05/24/2025 Results Follow-Up [facility] [address] [place] [address] Sindy Obrien MD Vascular US carotid artery duplex bilateral 05/17/2025 2:45 PM EST Office Visit [facility] [address] [facility] [place] [address] Sindy Obrien MD Primary hypertension (Primary Dx); Type 2 diabetes mellitus with hyperglycemia, with long-term current use of insulin (HCC) 05/17/2025 Travel 05/17/2025 Refill [facility] [address] [place] [address] Sindy Obrien MD Chronic right shoulder pain 05/17/2025 Telephone [facility] [address] [place] [address] Sindy Obrien MD telephone call 05/16/[address] [address] Sindy Obrien MD chart prep 05/09/2025 Refill [facility] [address] [place] [address] Sindy Obrien MD Chronic right shoulder pain 05/08/2025 Patient Outreach [address] [address] Sindy Obrien MD Pre-visit Planning (SDOH screening completed on 10/21/2024) 05/01/2025 1:00 PM EST Clinical Support [facility] [address] [place] [address] Leah Sampson RN Long-term current use of opiate analgesic (Primary Dx) 05/01/2025 Travel 04/23/2025 Refill [facility] [address] [place] [phone] Sindy Obrien MD HTN (hypertension), benign; Type 2 diabetes mellitus with hyperglycemia, with long-term current use of insulin (HCC) 04/14/2025 Refill [facility] [address] [place] [address] Sindy Obrien MD Chronic right shoulder pain 03/31/2025 Orders Only [facility] [address] [place] [phone] Sindy Obrien MD Type 2 diabetes mellitus with hyperglycemia, with long-term current use of insulin (HCC) (Primary Dx); HTN (hypertension), benign 03/31/2025 Travel 03/28/2025 2:00 PM EDT Clinical Support [facility] [address] [place] [address] Leah Sampson, RN Long-term current use of opiate analgesic (Primary Dx) 03/28/2025 Telephone [facility] [address] [place] [address] Leah Sampson RN UTOX Abnormal 03/28/2025 Travel 03/23/2025 Telephone [facility] [address] [place] [address] Sindy Obrien MD telephone call 03/21/2025 Refill [facility] [address] [place] [address] Sindy Obrien MD HTN (hypertension), benign; Routine health maintenance 03/15/2025 Refill [facility] [address] [place] [address] Sindy Obrien MD Chronic right shoulder pain 03/09/2025 Telephone [facility] [address] [place] [address] Sindy Obrien MD telephone call 03/07/2025 Telephone [facility] [address] [place] [address] Sindy Obrien MD Dec recall 03/02/2025 Travel 02/23/2025 1:00 PM EDT Clinical Support [facility] [address] [place] [address] Leah Sampson, RN Long-term current use of opiate analgesic (Primary Dx) 02/23/2025 Telephone [facility] [address] [place] [phone] Leah Sampson, RN RANGE SCIENTIST Agreement renewed today; Oxycodone count 02/23/2025 Travel 02/22/2025 Refill [facility] [address] [place] [address] Sindy Obrien MD Primary hypertension from Last 3 Months Immunizations Immunization Administration [...] Sign Reading Time Taken Comments Blood Pressure 190/110 05/17/2025 2:49 PM EST Pulse 90 05/17/2025 2:49 PM EST Temperature 36.3 C (97.3 F) 05/17/2025 2:49 PM EST Respiratory Rate 20 05/17/2025 2:49 PM EST Oxygen Saturation 96% 05/17/2025 2:49 PM EST Inhaled Oxygen Concentration - - Weight 75.7 kg (166 lb 12.8 oz) 05/17/2025 2:49 PM EST Height 160 cm (5' 3 ) 05/17/2025 2:49 PM EST Body Mass Index 29.55 05/17/2025 2:49 PM EST Plan of Treatment Upcoming Encounters Date Type Department Care Team (Late st Contact Info) Description 05/25/2025 1:30 PM EST Clinical Support [address] [address] 06/14/2025 2:00 PM EST Clinical Support [address] [address] Leah Sampson RN 07/07/2025 10:30 AM EST Medication Management [address] [address] Edgard Dasilva, PharmD [address] [place] [phone] Health Maintenance Due Date Last Done Comments [...] 09/24/2022 09/24/2017, 04/09/2012 COVID-19 Vaccine (4 - season) 2025 05/28/2021, 10/25/2020, 09/27/2020 Influenza Vaccine (#1) 2025 2, 04/11/2011, 07/09/2007 Alcohol/Substance Use Screening 06/06/2025 06/06/2024 Eye Exam 08/17/2025 08/18/2023, 08/06, 08/18/2023, Additional history exists SDOH Screening 10/21/2025 10/21/2024 Lipid Panel 11/02/2025 11/02/2024, 12/07, 06/05/2020 Diabetes: Hemoglobin A1C 11/15/2025 025, 02/09/2025, 11/02/2024, Additional history exists Colonoscopy 01/23/2026 01/23/2023, 05/15/2016 Colorectal Cancer Screening 01/23/2026 Depression Screening 05/17/2026 05/17/2025, 05/17/20 25 Tobacco Screening 05/17/2026 05/17/2025 DTaP/Tdap/Td Vaccines (2 - Td or Tdap) [...] 6.1( 2:55 PM EST) No Caroline Neri, PharmD Help patients manage their type 2 diabetes Care Plan Help patients manage their type 2 diabetes Leah Monsivais, MANSI Weekly blood pressure task Care Plan Weekly blood pressure task No Leah Sampson, MANSI Help patients manage their type 2 diabetes Care Plan Help patients manage their type 2 diabetes No Leah Sampson, MANSI Patient has chronic kidney disease Care Plan Patient has chronic kidney disease No Leah Sampson RN Weekly blood pressure task Care Plan Weekly blood pressure task No Leah Sampson RN Patient has chronic kidney disease Care Plan Patient has chronic kidney disease No Leah Sampson, MANSI Weekly blood pressure task Care Plan [...] blood pressure task No Leah Sampson RN Weekly blood pressure task Care Plan Weekly blood pressure task No Leah Sampson, MANSI Patient has chronic kidney disease Care Plan Patient has chronic kidney disease No Leah Sampson, MANSI Patient has chronic kidney disease Care Plan Patient has chronic kidney disease No Leah Sampson RN Weekly blood pressure task Care Plan Weekly blood pressure task No Jessy Peace [place] Weekly blood pressure task Care Plan Weekly blood pressure task No Jessy Peace [place] Patient has chronic kidney disease Care Plan Patient has chronic kidney disease No Jessy Peace [place] Patient has chronic kidney disease Care Plan Patient has chronic kidney disease No Jessy Peace [place] Weekly blood pressure task Care Plan Weekly blood pressure task No Sindy Obrien MD Weekly blood pressure task Care Plan Weekly blood pressure task No Sindy Obrien MD Patient has chronic kidney disease Care Plan Patient has chronic kidney disease No Sindy Obrien MD Patient has chronic kidney disease Care Plan Patient has chronic kidney disease No Sindy Obrien MD Procedures Procedure Name Priority Date/Time Associated Diagnosis Comments VASC US CAROTID ARTERY DUPLEX BILATERAL Routine 05/24/2025 1:06 PM EST Dizziness POCT GLYCATED HEMOGLOBIN, TOTAL Routine 05/17/2025 2:55 PM EST Type 2 diabetes mellitus with hyperglycemia, with long-term current use of insulin (HCC) POCT GLUCOSE Routine 05/17/2025 2:51 PM EST Type 2 diabetes mellitus with hyperglycemia, with long-term current use of insulin (HCC) POCT VELASQUEZ-14 URINE DRUG SCREEN Routine 05/01/2025 1:00 PM EST Long-term current use of opiate analgesic POCT VELASQUEZ-14 URINE DRUG SCREEN Routine 03/28/2025 2:05 PM EDT Long-term current use of opiate analgesic METHADONE SCREEN, URINE Routine 03/28/2025 1:45 PM EDT Long-term current use of opiate analgesic POCT VELASQUEZ-14 URINE DRUG SCREEN Routine 02/23/2025 1:21 PM EDT Long-term current use of opiate analgesic LIPID PANEL, STANDARD Routine 11/02/2024 11:56 AM EDT Type 2 diabetes mellitus with hyperglycemia, with long-term current use of insulin (CMS/HCC) HEPATITIS PANEL, GENERAL Routine 06/10/2024 11:29 AM EST Vestibular disorder, unspecified laterality HM COLONOSCOPY Routine 01/23/2023 ZZZ HISTORICAL OCCULT BLOOD STOOL X3 Routine 06/28/2019 12:00 AM EST from Last 3 Months or Most Recently Relevant to Health Maintenance Results * Vascular US carotid artery duplex bilateral (05/24/2025 1:06 PM EST) 05/24/2025 1:06 PM EST Narrative [facility] - 05/24/2025 1:59 PM EST [address] [address] Ultrasound Report Signed Patient: Frantz Fink MR#: [id number] : 1950 Acct:[id number] Age/Sex: 74 / M ADM Date: 05/24/25 Loc: HO.US Attending Dr: Sindy Carlson MD Ordering Physician: Sindy Obrien MD Date of Service: 05/24/25 Procedure(s): US carotid duplex BI Accession Number(s): [id number] cc: Sindy Obrien MD Reason for Exam: PERSISTENT DIZZINESS EXAMINATION: US EXTRACRANIAL CAROTID DUPLEX, BILATERAL CLINICAL INFORMATION: Dizziness, diabetes, former smoker, hypertension COMPARISON: None available. TECHNIQUE: Real-time ultrasound and Doppler techniques (integrating B-mode 2-D vascular images, Doppler spectral analysis and color-flow Doppler imaging) were utilized to interrogate the extracranial carotid arteries, the vertebral arteries and proximal subclavian arteries bilaterally. The degree of stenosis is determined by criteria similar to NASCET. FINDINGS: Right Side: 1. There is mild mixed echogenicity atherosclerotic plaque seen in the bifurcation/proximal ICA region. 2. The common carotid artery PSV proximally is 58 cm/s and distally 51 cm/s. 3. The proximal internal carotid artery velocities are 66 cm/s systolic and 26 cm/s diastolic. 4. The proximal external carotid artery PSV is 101 cm/s. 5. The vertebral artery shows antegrade flow. 6. The subclavian artery waveforms are triphasic. ICA/CCA ratio 1.1 Left Side: 1. There is mild echogenic atherosclerotic plaque seen in the bifurcation/proximal ICA region. 2. The common carotid artery PSV proximally is 69 cm/s and distally 44 cm/s. 3. The proximal internal carotid artery velocities are 65 cm/s systolic and 22 cm/s diastolic. 4. The proximal external carotid artery PSV is 63 cm/s. 5. The vertebral artery shows antegrade flow. 6. The subclavian artery waveforms are triphasic. ICA/CCA ratio = 0.9. US/US carotid duplex BI IMPRESSION: 1. RIGHT: No hemodynamically significant stenosis 2. LEFT: No hemodynamically significant stenosis Electronically signed by: Vernon Quick MD 05/24/2025 01:56 PM EST Dictated By: Vernon Quick MD Signed By: <Electronically signed by Vernon Quick MD in OV> 05/24/25 1356 DD/ 1306 TD/TT: 05/24/25 1326 Hand Rigger: Procedure Note Donotuseinterpreter, Image - 05/24/[address] [address] Ultrasound Report Signed Patient: Tyson Fink#: [id number] : 1950cct:[id number] Age/Sex: 74 / MADM Date: 05/24/25 Loc: HO.US Attending Dr: Sindy Carlson MD Ordering Physician: Sindy Obrien MD Date of Service: 05/24/25 Procedure(s): US carotid duplex BI Accession Number(s): [id number] cc: Sindy Obrien MD Reason for Exam: PERSISTENT DIZZINESS EXAMINATION: US EXTRACRANIAL CAROTID DUPLEX, BILATERAL CLINICAL INFORMATION: Dizziness, diabetes, former smoker, hypertension COMPARISON: None available. TECHNIQUE: Real-time ultrasound and Doppler techniques (integrating B-mode 2-D vascular images, Doppler spectral analysis and color-flow Doppler imaging) were utilized to interrogate the extracranial carotid arteries, the vertebral arteries and proximal subclavian arteries bilaterally. The degree of stenosis is determined by criteria similar to NASCET. FINDINGS: Right Side: 1. There is mild mixed echogenicity atherosclerotic plaque seen in the bifurcation/proximal ICA region. 2. The common carotid artery PSV proximally is 58 cm/s and distally 51 cm/s. 3. The proximal internal carotid artery velocities are 66 cm/s systolic and 26 cm/s diastolic. 4. The proximal external carotid artery PSV is 101 cm/s. 5. The vertebral artery shows antegrade flow. 6. The subclavian artery waveforms are triphasic. ICA/CCA ratio 1.1 Left Side: 1. There is mild echogenic atherosclerotic plaque seen in the bifurcation/proximal ICA region. 2. The common carotid artery PSV proximally is 69 cm/s and distally 44 cm/s. 3. The proximal internal carotid artery velocities are 65 cm/s systolic and 22 cm/s diastolic. 4. The proximal external carotid artery PSV is 63 cm/s. 5. The vertebral artery shows antegrade flow. 6. The subclavian artery waveforms are triphasic. ICA/CCA ratio = 0.9. US/US carotid duplex BI IMPRESSION: 1. RIGHT: No hemodynamically significant stenosis 2. LEFT: No hemodynamically significant stenosis Electronically signed by: Vernon Quick MD 05/24/2025 01:56 PM EST RP Dictated By: Vernon Quick MD Signed By: <Electronically signed by Vernon Quick MD in OV> 05/24/25 1356 DD/ 1306 TD/TT: 05/24/25 1326 Hand Rigger: Sindy Carlson MD CV VASCULAR PROCEDURE S Final Result [facility] [address] [place] [phone] * (ABNORMAL) POCT Hgb A1c (05/17/2025 2:55 PM EST) Hemoglobin A1C 6.1(A) 4.0 - 5.7 % Blood 05/17/2025 2:55 PM EST Sindy Carlson MD POINT OF CARE TEST EN TER/EDIT ORDERABLES Final Result * POCT Glucose (05/17/2025 2:51 PM EST) Glucose Blood, POC 95 60 - 200 mg/dL Blood Capillary blood specimen / Unknown 05/17/2025 2:51 PM EST Sindy Carlson MD POINT OF CARE TEST EN TER/EDIT ORDERABLES Final Result * (ABNORMAL) POCT VELASQUEZ-14 Urine Drug Screen [...] Negative ng/mL Oxycodone Screen, Urine Positive(A) Negative Comment:RANGE SCIENTIST pt on Oxycodone Phencyclidine (PCP), Urine Negative Negative Propoxyphene, Urine Negative Negative Fentanyl, Urine Negative Negative Urine Urine specimen obtained by clean catch procedure / Unknown 05/01/2025 1:00 PM EST Leah Woods RN - 05/01/2025 1:00 PM EST UTOX cup Lot#[id number] Exp. 05/08/26 Internal Pass Control Sindy Carlson MD POINT OF CARE TEST EN TER/EDIT ORDERABLES Final Result * Drug Monitoring, Methadone Metabolite, Screen, Urine (03/28/2025 1:45 PM EDT) Methadone Screen, Urine Not Detected Not Detect ng/mL [facility] Comment:Methadone cut-off is 300 ng/mL.Positive results are unconfirmed and should not be used fornon-medical purposes. Urine (Urine, Random) 03/28/2025 1:45 PM EDT 03/28/2025 4:48 PM EDT Sindy Carlson MD LAB URINE ORDERABLES Final Result [facility] [address] [place] [phone] * (ABNORMAL) Lipid Panel, Standard (11/02/2024 11:56 AM EDT) Triglycerides 134 <150 mg/dL [facility] Comment:Desirable Triglyceri de: less than 150 mg/dLBorderline High Triglyceride 150-199 mg/dLHigh Triglyceride: 200-499 mg/dLVery High Triglyceride: greater than or equal to 5OO mg/dL Cholesterol 121 <200 mg/dL [facility] Comment:Desirable Cholestero l: less than 200 mg/dLBorderline High Cholesterol: 200-239 mg/dLHigh Cholesterol: greater than 239 mg/dL LDL Cholesterol Calculated 66 <100 mg/dL [facility] Comment:Desirable LDL: less than 100 mg/dLNear Optimal/Above Optimal LDL: 110- 129 mg/dLBorderline High LDL: 130-159 mg/dLHigh LDL: 160-189 mg/dLVery High LDL: greater than or equal to 190 mg/dL HDL Cholesterol 29(L) >40 mg/dL [facility] Comment:Desirable HDL: great er than 40 mg/dL Note: This HDL assay may give artificially low results in patients with liver disease. Blood Venous blood specimen / Unknown 11/02/2024 11:56 AM EDT 11/02/2024 1:15 PM EDT us Sindy Carlson MD LAB BLOOD ORDERABLES Final Result [facility] [address] [place] [phone] * Hepatitis Panel, General (06/10/2024 11:29 AM EST) Hepatitis A IgM Nonreactive Nonreactive [facility] Comment:IgM antibodies to MCCARTHY V not detected; does not exclude earlyacute or recovered HAV infection. ~Hepatitis B Surface Antibody NONREACTIVE Nonreactive [facility] Comment:Nonreactive: < 8.00 mIU/mL Hepatitis B Core Antibody Nonreactive Nonreactive [facility] Hepatitis C Antibody Nonreactive Nonreactive [facility] Comment:Antibodies to HCV no t detected; does not exclude early acuteHCV infection. Hepatitis B Surface Ag Negative Negative [facility] Blood Venous blood specimen / Unknown 06/10/2024 11:29 AM EST 06/10/2024 1:07 PM EST Sindy Carlson MD LAB BLOOD ORDERABLES Final Result Performing Organization Address [facility]/ZIP Co de Phone Number [facility] [address] [place] [phone] [phone] * Hm Colonoscopy (01/23/2023) us Historical Provider MD HEALTH MAINTENANCE Final Result * (ABNORMAL) OCCULT BLOOD STOOL X3 (06/28/2019 12:00 AM EST) OCCULT BLOOD STOOL-1 NEG NEG [facility] OCCULT BLOOD STOOL-1 DATE 06/25/19 [facility] OCCULT BLOOD STOOL-2 POS(AA) NEG [facility] OCCULT BLOOD STOOL-2 DATE 06/26/19 [facility] OCCULT BLOOD STOOL-3 POS(AA) NEG [facility] OCCULT BLOOD STOOL-3 DATE 06/28/19 [facility] 06/28/2019 us Sindy Carlson MD HISTORICAL/NON ORDERA BLE LABS Final Result Performing Organization Address City/[facility]/ZIP Co de Phone Number [facility] [address] [place] [address], from Last 3 Months or Most Recently [...] 05/24/2025 Patient has chronic kidney disease 05/24/2025 Insurance [facility] [employer] (O D-SNP) KATHERINE EDWARDS [id number] Care Teams Trucker Hand Relationship Specialty Start Date End Date Sindy Obrien MD [address] [place] [address] PCP - General Family Medicine 03/28/19 Edgard Dasilva, PharmD [address] [place] [address] Pharmacist Pharmacy 12/23/24
--- OUTSIDE RECORDS SUMMARY | 2025-05-24 16:57 | XMS_ITS | Encounter Summary ---
Author Organization [employer] Address [address] [facility] [address] [place] [address] Care Team Providers Care Health Associate Name Role Phone Sindy Obrien MD Primary Care Provide r Edgard Dasilva PharmD Unavailable [phone] Reason for Visit * Reason Comments Med Refill Encounter Details Date Type Department Care Team ([facility] st Contact Info) Description 11/30/2024 Refill [facility] [address] [place], [place] [id number] Sindy Obrien MD [address] [place] [address] Chronic right shoulder pain Social History Tobacco [...] Description 05/25/2025 1:30 PM EST Clinical Support [address] [address] 06/14/2025 2:00 PM EST Clinical Support [address] [address] Leha Sampson RN 07/07/2025 10:30 AM EST Medication Management [address] [address] Edgard Dasilva, AtiyaD [address] [place] [id number] documented as of this encounter Goals Goal Patient Goal Type Associated Problems Recent Progress Patient-Stated? Author Hemoglobin A1c < 8 Result Component 6.1(05/17/2025 2:55 PM EST) No Caroline Neri, AtiyaD documented as of this encounter Visit Diagnoses Diagnosis Chronic right shoulder pain Pain in joint, shoulder region documented in this encounter Additional Health Concerns Assessment Noted Time PHQ-9 Depression Total Score: 0 06/06/20 24 1:16 PM EST documented as of this encounter Care Teams Health Associate Relationship Specialty Start Date End Date Sindy Obrien MD [address] [place] [address] PCP - General Family Medicine 03/28/19 Edgard Dasilva, AtyiaD [address] [place] [address] Pharmacist Pharmacy 12/23/24 documented as of this encounter
== END 2025-05-24 12:49 | disposition home or self-care (01) ==
LOC: HO.US 12:48
PROVIDERS: Visit Provider Internal Medicine
DX: R42 Dizziness and giddiness (principal)
CPT/HCPCS: 93880

== ENCOUNTER → 2025-05-24 13:06 | Outpatient (BNV) | payer OTHER, SELFPAY | PROVIDERS: Visit Provider Radiology Diagnostic Radiology | DX: R42 Dizziness and giddiness (principal); E11.9 Type 2 diabetes mellitus without complications; I10 Essential (primary) hypertension; Z87.891 Personal history of nicotine dependence | CPT/HCPCS: 93880 ==